=== PATIENT | male | born 1955 | race Caucasian/White ===

== ENCOUNTER 2016-03-18 16:18 | Observation (INO) ==
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
[2016-03-18 17:15] LABS: Basophils # 0.1 K/mcL (0.0-0.2); Basophils % 0.5 %; Eosinophils # 0.1 K/mcL (0.0-0.6); Eosinophils % 0.8 %; Hematocrit 43.8 % (37.5-50.1); Hemoglobin 14.8 g/dL (12.9-16.9); Immature Granulocytes % 0.2 % (0-4); Lymphocytes # 2.3 K/mcL (0.6-4.6); Lymphocytes % 24.1 %; Mean Corpuscular HGB Conc 33.8 g/dL (31.6-35.5); Mean Corpuscular Hemoglobin 31.8 pg (28.0-33.3); Mean Corpuscular Volume 94.2 fL (83.0-100.0); Monocytes # 0.3 K/mcL (0.0-1.3); Neutrophils # 6.9 K/mcL (1.6-8.9); Platelet Count 324 K/mcL (140-400); Red Blood Count 4.65 M/mcL (4.19-5.50); Red Cell Distribution Width 13.5 % (11.5-14.5); Segmented Neutrophils % 71.4 %
[2016-03-18 17:28] LABS: BUN/Creatinine Ratio 11 (6-26); Blood Urea Nitrogen 9 mg/dL (8-26); Calcium 9.9 mg/dL (8.6-10.8); Carbon Dioxide 23 mEq/L (19-29); Chloride 103 mEq/L (98-109); Glucose 239 mg/dL (70-99); Magnesium 1.8 mg/dL (1.6-2.6); Osmolality,Calculated 292 (280-300); Potassium 4.3 mEq/L (3.5-4.5); Sodium 138 mEq/L (136-145); eGFR For African Americans > 60 (> 60); eGFR For Non-African Americans > 60 (> 60)
[2016-03-18] MEDS ORDERED: Ketorolac 30 MG/ML VIAL IVP ONE (17:34)
[2016-03-18 18:35] LABS: Phenytoin (Dilantin) < 0.5 mcg/mL (10-20)
[2016-03-18] MEDS ORDERED: Ondansetron 4 MG/2 ML VIAL IVP ONE ×2 (18:40→21:19)
[2016-03-18] MEDS ORDERED: *HR* HYDROmorphone (PF) 1 MG/ML SYRINGE IV ONE ×2 (18:40→20:03)
[2016-03-18] MEDS ORDERED: *HR* HYDROmorphone (PF) 1 MG/ML SYRINGE IVP ONE (21:19)
[2016-03-18] MEDS ORDERED: Ibuprofen 400 MG TABLET PO PRN (22:47)
[2016-03-18] MEDS ORDERED: *HR* HYDROcodone/Acet 5/325 mg TABLET PO PRN (22:47)
[2016-03-18] MEDS ORDERED: Naloxone 0.4 MG/ML INJ IVP PRN (22:47)
[2016-03-18] MEDS ORDERED: Nitroglycerin 0.4 MG TAB.SUBL SL PRN (22:54)
[2016-03-18] MEDS ORDERED: *HR* Dextrose 50 % in Water (Syg) 50 ML SYRINGE IVP PRN (23:00)
[2016-03-18] MEDS ORDERED: Insulin DETEMIR 100 UNIT/ML X5UNITS SQ SCH ×2 (23:00→23:12)
[2016-03-18] MEDS ORDERED: predniSONE 10 MG TABLET PO SCH (23:00)
[2016-03-18] MEDS ORDERED: D5% in Water 1,000 ML IV PRN (23:00)
[2016-03-18] MEDS ORDERED: Dextrose Gel 15 GM PO PRN ×2 (23:00)
[2016-03-18] MEDS: *HR* HYDROmorphone (PF) 1 MG/ML SYRINGE IVP PRN (23:12)
--- NOTE | 2016-03-18 23:20 | Internal Med History&Physical ---
Date of Encounter: 03/18/16 Time of Encounter: 23:13 Assessment and Plan (1) New onset seizure Current visit: Yes Status: Acute Patient with 3 observed seizures today. Reports he had some dizziness prior to the first seizure, but does not remember anything else until waking up in ED. Denies headache. Started on Keppra 500mg IVPB by ED. CT of head negative for acute abnormality. 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 Keppra 500mg PO BID Seizure precautions Neuro checks Q2 hr EEG ordered Neurology consult ordered. (2) Chronic back pain Current visit: Yes Status: Acute Patient with history of low back pain with sciatica with multiple visits to ED/ UC for back pain over the last few months. He is complaining of back pain during my evaluation, he reports he thinks it was exacerbated when EMS moved him out of his car. He was given several doses of dilaudid in ED. Continue home dose of oxycodone 15mg Q4hr PRN. 0.5mg IV dilaudid for breakthrough Narcan PRN for respiratory depression Qualifiers: Back pain location: low back pain Back pain laterality: unspecified Sciatica presence: with sciatica Sciatica laterality: sciatica laterality unspecified Qualified Code(s): M54.40 - Lumbago with sciatica, unspecified side; G89.29 - Other chronic pain (3) HTN (hypertension) Current visit: No Status: Acute Continue home doses of metoprolol, lisinopril and HCTZ. Qualifiers: Hypertension type: essential hypertension Qualified Code(s): I10 - Essential (primary) hypertension (4) Tobacco abuse Current visit: No Status: Acute Patient reports he has been cutting back, now down to 1/2 PPD. Offered encouragement, discussed smoking cessation options. Nicotine patch TD daily. (5) DM type 2 (diabetes mellitus, type 2) Current visit: No Status: Chronic Check blood sugars ACHS Continue home basal dose of insulin of 45u daily Sliding scale correction dose ACHS hypoglycemic protocol. Qualifiers: Diabetes mellitus complication status: without complication Diabetes mellitus medical terminologist insulin use: with medical terminologist use Qualified Code(s): E11.9 - Type 2 diabetes mellitus without complications; Z79.4 - care home (current) use of insulin (6) DVT prophylaxis Current visit: No Status: Acute ambulate as tolerated anti-embolic stockings Heparin 5,000u SQ BID Internal Medicine - H&P: HPI Chief complaint: seizure Admitted From: Emergency Dept Plans for Post Hospital Care: Home History of present illness: Mr. Craig is a 60 year old male with history of HTN, hyperlipidemia, TIA, type 2 diabetes, COPD, and CAD who was brought to the ED by EMS for witnessed seizure. The patient reportedly pulled into the driveway and was observed to slump over in his car with seizure activity and EMS was called. He had 2 more seizures while under the care of EMS. He reports he felt a little dizziness while driving, and does not remember anything until waking up in the ED. He denies any headache, chest pain, palpitations, recent fever, chills, sweats or body aches. He is complaining of back pain and leg pain. In the ED, a CT of the head was negative for acute abnormality. Patient has a known history of small cerebral aneurysm and CTA of head and neck obtained. No change to known aneurysm and no leak of aneurysm. He was given 500mg of Keppra IVPB by ED. On exam, patient is alert and oriented, in no distress. His heart has regular rate and rhythm with systolic murmur. Lungs are clear bilaterally. He is complaining of back and leg pain. Past Med Surg Social Fam HX - Past Medical History Medical history: COPD, coronary artery disease, diabetes, hyperlipidemia, hypertension, myocardial infarction, TIA, valvular heart disease Psychiatric history: no psych history - Past Surgical History Surgical History: angioplasty/stent (2006 and 2015), cholecystectomy, herniorrhaphy, knee replacement - Social History Smoking Status: Current every day smoker (40 pack year history) Packs per day: 1/2 Smokeless Tobacco Status: No Alcohol use: none Drug use: none - Family History Mother Living Status: Hx Family Cancer: Yes (lung cancer) Father Hx Family Cancer: Yes (colon cancer) Internal Medicine - H&P: Meds Alprazolam [Xanax 0.5 MG Tablet] 0.5 mg PO BID 10/12/15 [History] Citalopram [CeleXA] 20 mg PO DAILY 10/12/15 [History] Gabapentin 600 mg PO TID 10/12/15 [History] Insulin Glargine [Lantus] 45 unit SQ DAILY 10/12/15 [History] Metformin HCl [Metformin HCl ER] 1,000 mg PO BID 10/12/15 [History] Oxycodone HCl 15 mg PO Q4H PRN 11/15/15 [History] Zolpidem [Ambien] 10 mg PO HS 11/15/15 [History] Diazepam [Valium] 5 mg PO TID #10 tablet 03/17/16 [Rx] Ondansetron ODT [Zofran ODT] 4 mg SL Q6HR #15 tab.rapdis 03/17/16 [Rx] Albuterol Sulfate [Albuterol Inhaler] 2 puff IH Q4H PRN 03/18/16 [History] Allopurinol [Zyloprim 300 MG] 300 mg PO DAILY 03/18/16 [History] Aspirin 81 mg PO DAILY 03/18/16 [History] Atorvastatin Calcium [Lipitor] 80 mg PO DAILY 03/18/16 [History] Budesonide/Formoterol 160/4.5 [Symbicort 160/4.5] 2 puff IH BIDR 03/18/16 [ History] Clopidogrel [Plavix] 75 mg PO DAILY 03/18/16 [History] Lisinopril/Hydrochlorothiazide [Zestoretic 10-12.5 mg Tablet] 1 each PO BID [History] Metoprolol Succinate 100 mg PO DAILY 03/18/16 [History] Nitroglycerin [Nitrostat] 0.4 mg SL Q5M PRN 03/18/16 [History] PredniSONE 10 mg PO TAPER 03/18/16 [History] Allergies No Known Allergies Allergy (Verified 12/18/15 18:05) All Systems PM: A 10-system review of systems was performed and is negative for pertinent findings except as documented above in the HPI. - Constitutional Constitutional: no chills, no fever(s), no night sweats - EENT Eyes: no change in vision, no discharge, no pain, no photophobia Ears: no ear discharge, no ear pain, no tinnitus Nose, mouth and throat: no dysphagia, no nasal discharge, no neck pain, no sore throat - Cardiovascular Cardiovascular ROS IM: no chest pain, no diaphoresis, no dyspnea, no lightheadedness, no palpitations, no syncope - Respiratory Respiratory: no cough, no dyspnea, no wheezing, no excessive phlegm production - Gastrointestinal Gastrointestinal: no abdominal pain, no diarrhea, no hematemesis, no hematochezia, no melena, no nausea, no vomiting - Musculoskeletal Musculoskeletal ROS IM: back pain, no numbness, no tingling - Integumentary Integumentary IM: no rash, no unusual bruising - Neurological Neurological ROS: tingling (fingertips), no confusion, no convulsions, no focal weakness, no numbness, no tremor(s) - Hematologic/Lymphatic Hematologic/Lymphatic: no easy bruising - Constitutional Vitals: Temp Pulse Resp BP Pulse Ox 98.0 F 78 16 156/91 97 03/18/16 22:50 03/18/16 22:50 03/18/16 22:50 03/18/16 22:50 03/18/16 22:50 General appearance: Present: A&O X 3, no acute distress - Head Head exam: Present: atraumatic, normocephalic - Eye Eye exam: Present: PERRL, conjuntiva pink, sclera anicteric Pupils: Present: PERRL - Neck Neck exam general surgery: Present: supple, trachea midline. Absent: lymphadenopathy - Respiratory Respiratory exam: Present: CTAB. Absent: accessory muscle use, rales, rhonchi, wheezes - Cardiovascular Cardiovascular exam: Present: RRR, +S1, +S2, systolic murmur. Absent: diastolic murmur, gallop, rubs - GI/Abdominal GI/Abdominal exam: Present: normal bowel sounds, soft, no peritoneal signs. Absent: distended, tenderness - Extremities Exam Extremities exam: Present: warm, radial pulses palpable and symetrical. Absent : calf tenderness, cyanotic, pedal edema - Back Exam Back exam: Present: normal inspection, tenderness - Neurological Exam Neurological exam: Present: CN II-XII intact, oriented X3, no focal deficits. Absent: pronater drift, facial droop, speech deficit - Skin Skin exam: Present: dry, intact Internal Med - H&P Results - Labs CBC & Chem 7: 03/18/16 17:06 03/18/16 17:06
[2016-03-18 23:50] LABS: Amphetamine Screen,Urine Negative ng/mL (Cutoff=1000); Barbiturate Screen,Urine Negative ng/mL (Cutoff=200); Benzodiazepines Screen,Urine Positive ng/mL (Cutoff=200); Cannabinoid Screen,Urine Negative ng/mL (Cutoff = 50); Cocaine Screen,Urine Negative ng/mL (Cutoff= 300); Opiate Screen,Urine Positive ng/mL (Cutoff=300); Phencyclidine Screen,Urine Negative ng/mL (Cutoff=25)
[2016-03-19 01:14] LABS: Bilirubin,Urine Negative (Negative); Blood,Urine Moderate (Negative); Clarity,Urine Clear (Clear); Color,Urine Yellow (Yellow); Glucose,Urine (UA) 250 mg/dL (Normal); Ketones,Urine Negative (Negative); Leukocyte Esterase,Urine Negative (Negative); Nitrite,Urine Negative (Negative); PH,Urine 5.5 pH Units (5.0-8.0); Protein,Urine 100 mg/dL (Neg-Trace); Urobilinogen,Urine Normal (Normal)
[2016-03-19 01:19] LABS: Bacteria,Urine None Seen per hpf (None-Few); Hyaline Casts,Urine None Seen per lpf (None-Few); Squamous Epithelial Cell,Urine Moderate per lpf (None-Few); WBC,Urine 0-3 per hpf (0-3)
[2016-03-19] MEDS: *HR* OxyCODONE Immed Rel 15 MG TABLET PO PRN ×2 (01:23→07:58)
[2016-03-19] MEDS: *HR* HYDROmorphone (PF) 1 MG/ML SYRINGE IVP PRN (03:50)
[2016-03-19 05:17] LABS: Basophils # 0.1 K/mcL (0.0-0.2); Basophils % 0.3 %; Eosinophils # 0.1 K/mcL (0.0-0.6); Eosinophils % 0.5 %; Hematocrit 38.3 % (37.5-50.1); Immature Granulocytes % 0.6 % (0-4); Lymphocytes # 2.7 K/mcL (0.6-4.6); Lymphocytes % 13.8 %; Mean Corpuscular HGB Conc 34.2 g/dL (31.6-35.5); Mean Corpuscular Volume 93.6 fL (83.0-100.0); Mean Platelet Volume 8.9 fL (9.4-12.4); Monocytes # 0.7 K/mcL (0.0-1.3); Monocytes % 3.4 %; Platelet Count 311 K/mcL (140-400); Red Blood Count 4.09 M/mcL (4.19-5.50); Red Cell Distribution Width 13.4 % (11.5-14.5); Segmented Neutrophils % 81.4 %
[2016-03-19 05:18] LABS: Hemoglobin 13.1 g/dL (12.9-16.9)
[2016-03-19 05:31] LABS: BUN/Creatinine Ratio 18 (6-26); Blood Urea Nitrogen 15 mg/dL (8-26); Calcium 9.2 mg/dL (8.6-10.8); Carbon Dioxide 21 mEq/L (19-29); Chloride 107 mEq/L (98-109); Glucose 168 mg/dL (70-99); Magnesium 1.7 mg/dL (1.6-2.6); Osmolality,Calculated 293 (280-300); Phosphorous 4.4 mg/dL (2.3-4.7); Potassium 4.3 mEq/L (3.5-4.5); Sodium 139 mEq/L (136-145); eGFR For African Americans > 60 (> 60); eGFR For Non-African Americans > 60 (> 60)
[2016-03-19] MEDS ORDERED: levETIRAcetam 250 MG TABLET PO SCH (06:00)
[2016-03-19 06:57] VITALS: BP 113/71
[2016-03-19] MEDS ORDERED: *HR* Heparin 5,000 UNIT/ML VIAL SQ SCH (07:00)
[2016-03-19] MEDS ORDERED: Insulin LISPRO 300 UNITS/3 ML VIAL SQ SCH ×3 (07:30→21:00)
--- NOTE | 2016-03-19 07:51 | Neurology - Consult Note ---
Date of Encounter: 03/19/16 Time of Encounter: 07:48 Assessment and Plan (1) Spell of altered consciousness Current Visit: Yes Status: Acute I am not absolutely convinced and this was a generalized tonic-clonic seizure. There is no evidence of oral trauma is no loss of bladder or bowel continence. Also in a patient this age with new onset seizure there is generally an obvious cause. CT scan of his head is negative and his neurologic examination is normal. He did mention to me that he has been under tremendous amount of stress lately rarely due to the fact that he just found out that his 14-year- old granddaughter is , and he has another granddaughter who is been skipping school. In regard we will proceed with MRI scan of the brain with contrast, and in EEG. If the studies are negative then I would recommend discontinuing the Keppra. He is also on telemetry although denies any heart palpitations or chest pain associated with the event. Further recommendations will be made after the MRI and EEG have been completed. History of Present Illness HPI: Mr. Craig is a 60 year old male who is being seen for neurologic consultation secondary to possible new onset seizure. He states that yesterday afternoon while driving his car home from work she began to feel "dizzy". About 10 minutes later he arrived in his driveway. He pulled up his driveway and apparently this is the last thing he remembers. He does recall putting the car in park. Apparently then is 18-year-old grandson witnessed him have what appeared to be a seizure. Only doses that he "slumped over" and started shaking. He is not certain how long the initial episode lasted. Apparently several minutes or so later he had another episode. The next thing he recalls is being in the ED. He did not bite his tongue he did not have urinary incontinence. He did experience a headache after the event. He does not recall anything about the seizure. 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 However both of these are small and there is no evidence that either of them hemorrhaged. He does not have a previous history of seizure. Initial CT scan of the brain was negative. EEG is pending. He is currently awake alert oriented to person place and time and able to give a lucid history. He was started on IV Keppra by the ED. Past Med Surg Social Fam HX - Past Medical History Medical history: COPD, coronary artery disease, diabetes, hyperlipidemia, hypertension, myocardial infarction, TIA, valvular heart disease Psychiatric history: no psych history - Past Surgical History Surgical History: angioplasty/stent (2006 and 2015), cholecystectomy, herniorrhaphy, knee replacement - Social History Smoking Status: Current every day smoker (40 pack year history) Packs per day: 1/2 Smokeless Tobacco Status: No Alcohol use: none Drug use: none - Family History Mother Living Status: Hx Family Cancer: Yes (lung cancer) Father Hx Family Cancer: Yes (colon cancer) Medications and Allergies Alprazolam [Xanax 0.5 MG Tablet] 0.5 mg PO BID 10/12/15 [History] Citalopram [CeleXA] 20 mg PO DAILY 10/12/15 [History] Gabapentin 600 mg PO TID 10/12/15 [History] Insulin Glargine [Lantus] 45 unit SQ DAILY 10/12/15 [History] Metformin HCl [Metformin HCl ER] 1,000 mg PO BID 10/12/15 [History] Oxycodone HCl 15 mg PO Q4H PRN 11/15/15 [History] Zolpidem [Ambien] 10 mg PO HS 11/15/15 [History] Diazepam [Valium] 5 mg PO TID #10 tablet 03/17/16 [Rx] Ondansetron ODT [Zofran ODT] 4 mg SL Q6HR #15 tab.rapdis 03/17/16 [Rx] Albuterol Sulfate [Albuterol Inhaler] 2 puff IH Q4H PRN 03/18/16 [History] Allopurinol [Zyloprim 300 MG] 300 mg PO DAILY 03/18/16 [History] Aspirin 81 mg PO DAILY 03/18/16 [History] Atorvastatin Calcium [Lipitor] 80 mg PO DAILY 03/18/16 [History] Budesonide/Formoterol 160/4.5 [Symbicort 160/4.5] 2 puff IH BIDR 03/18/16 [ History] Clopidogrel [Plavix] 75 mg PO DAILY 03/18/16 [History] Lisinopril/Hydrochlorothiazide [Zestoretic 10-12.5 mg Tablet] 1 each PO BID [History] Metoprolol Succinate 100 mg PO DAILY 03/18/16 [History] Nitroglycerin [Nitrostat] 0.4 mg SL Q5M PRN 03/18/16 [History] PredniSONE 10 mg PO TAPER 03/18/16 [History] Allergies No Known Allergies Allergy (Verified 12/18/15 18:05) All Systems: A 10-system review of systems was performed and is negative for pertinent findings except as documented above in the HPI. Review of Systems: 10 point review of systems is consistent with a present illness and otherwise negative. Physical Examination - Vital Signs Vital Signs: Initial Vital Signs Temp Pulse Resp BP Pulse Ox 98.2 F 87 14 168/101 100 03/18/16 16:20 03/18/16 16:20 03/18/16 16:20 03/18/16 16:20 03/18/16 16:20 - Neurologic Detailed motor examination: full strength in all major muscle groups Motor examination - right side: 5/5: deltoids, biceps, triceps, wrist flexion, wrist extension, academic support center director, hip flexors, tibialis Anterior, quadriceps, toe extension (EHL), plantarflexion Motor examination - left side: 5/5: deltoids, biceps, triceps, wrist flexion, wrist extension, hip flexors, academic support center director, quadriceps, tibialis Anterior, toe extension (EHL), plantarflexion Mental Status Examination: awake, alert, oriented to person, oriented to place, oriented to time, follows commands appropriately, answers questions appropriately, no agnosia, no aphasia, no aproxia Cranial nerve examination: PERRL, EOMI, visual casiano intact, corneal reflexes brisk symmetrically, sensory to face intact, mastication intact, no facial asymmetry is present, no dysarthria, hearing is intact symmetrically, soft palate elevates bilaterally upon phonation, gag reflex intact, flexes SCM and trapezius muscles symmetrically with full power, tongue protrudes midline, no atrophy or facial fasiculations present Cerebellar examination: no dysmetria, performs finger to nose and heel to quiroga symmetrically without ataxia, no gait ataxia, no truncal ataxia, no difficulty with rapid alternating movements Results - Laboratory Findings CBC and BMP: 03/19/16 05:09 03/19/16 05:09 Abnormal lab findings: Abnormal lab results WBC 19.6 K/mcL (4.3-11.1) H D 03/19/16 05:09 RBC 4.09 M/mcL (4.19-5.50) L 03/19/16 05:09 MPV 8.9 fL (9.4-12.4) L 03/19/16 05:09 Neutrophils # 16.0 K/mcL (1.6-8.9) H 03/19/16 05:09 Glucose 168 mg/dL (70-99) H 03/19/16 05:09 POC Glucose 193 (58-89) H 03/19/16 06:55 Urine Protein 100 mg/dL (Neg-Trace) H 03/18/16 23:20 Urine Glucose (UA) 250 mg/dL (Normal) H 03/18/16 23:20 Urine Blood Moderate (Negative) H 03/18/16 23:20 Urine Microscopic RBC 5-15 per hpf (0-3) H 03/18/16 23:20 Ur Squamous Epith Cells Moderate per lpf (None-Few) H 03/18/16 23:20 Urine Opiates Screen Positive ng/mL (Sscwzc=128) H 03/18/16 23:20 Phenytoin < 0.5 mcg/mL (10-20) L 03/18/16 17:06 Carbamazepine 0.0 mcg/mL (4.0-12.0) L 03/18/16 17:06 Phenobarbital < 1 mcg/mL (15-40) L 03/18/16 17:06 U Benzodiazepines Scrn Positive ng/mL (Jwobge=464) H 03/18/16 23:20 Consult Discharge Plan - Plan Referrals: NO,PCP [Primary Care Provider] -
[2016-03-19] MEDS ORDERED: Aspirin 81 MG TAB.CHEW PO SCH (09:00)
[2016-03-19] MEDS ORDERED: Nicotine 14 MG PATCH.TD24 TD SCH (09:00)
[2016-03-19] MEDS ORDERED: Metoprolol XL (24 HR) Succ 50 MG TAB.ER.24H PO SCH (09:00)
[2016-03-19] MEDS ORDERED: Gabapentin 300 MG CAPSULE PO SCH (09:00)
[2016-03-19] MEDS ORDERED: ALPRAZolam 0.5 MG TABLET PO SCH (09:00)
[2016-03-19] MEDS ORDERED: Budesonide/Formoterol 160/4.5 MDI IH SCH (10:00)
--- NOTE | 2016-03-19 10:28 | Electrocardiograph Report ---
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
== END 2016-03-19 09:37 | disposition left against medical advice (07) ==
LOC: EMEROO 16:18 → 3BNU 16:18 → SUATTDRO 21:24 → 3BNU 22:05
PROVIDERS: ADMIT Nurse Practitioner Family; ATTEND Family Medicine

== ENCOUNTER 2016-04-08 19:02 | Inpatient (IN) ==
[2016-04-08] MEDS ORDERED: Piperacillin/Tazobactam 3.375 GM in D5% in Water (Mini-Bag+) 100 ML IVPB ONE (21:16)
[2016-04-08] MEDS ORDERED: Vancomycin 1,000 MG in D5% in Water 250 ML IVPB ONE (21:16)
[2016-04-08] MEDS ORDERED: *HR* HYDROmorphone (PF) 1 MG/ML SYRINGE IV ONE ×2 (21:16→22:40)
--- NOTE | 2016-04-08 21:20 | Emergency Department Note ---
Disposition Clinical Impression: Cellulitis of hand, Hyperglycemia Leukocytosis Qualifiers: Leukocytosis type: unspecified Qualified Code(s): D72.829 - Elevated white blood cell count, unspecified Disposition: Admitted As Inpatient Condition: Good Referrals: Cyrus Coyne DO [Primary Care Provider] - Forms: ED Satisfaction Letter Time of Disposition: 21:39 Extremity Problem HPI - General Chief complaint: ED Skin/Abscess/Foreign Body Stated complaint: swelling to right hand Time Seen by Provider: 04/08/16 21:12 Source: patient Mode of arrival: ambulatory Limitations: no limitations Nursing Notes Reviewed: Yes Vital Signs Reviewed: Yes (Tachycardic, hypertensive) - History of Present Illness HPI Narrative: Patient sustained a laceration to the dorsum of his right second MCP joint 13 days ago that was sutured at the urgent care. Since that time he has experienced progressive pain and swelling. He notes subjective fevers and chills last night. He is right-hand dominant. Blood sugars controlled. He also notes he has been taking pieces of glass out of the wound since the repair Pt Subjective Complaint: extremity pain, extremity swelling Onset (ago): day(s) Consistency: constant Injury Location: right Pain Scale: 8 Quality: aching Improves with: nothing Worsens with: range of motion, palpation Associated symptoms: Reports: fever, swelling, redness Context: recent surgery/procedure - Related Data Home Medications Medication Instructions Recorded Confirmed Alprazolam [Xanax 0.5 MG Tablet] 0.5 mg PO BID 10/12/15 04/08/16 Citalopram [CeleXA] 20 mg PO DAILY 10/12/15 04/08/16 Gabapentin 600 mg PO TID 10/12/15 04/08/16 Insulin Glargine [Lantus] 45 unit SQ DAILY 10/12/15 04/08/16 Metformin HCl [Metformin HCl ER] 1,000 mg PO BID 10/12/15 04/08/16 Oxycodone HCl 15 mg PO Q4H PRN 11/15/15 04/08/16 Zolpidem [Ambien] 10 mg PO HS 11/15/15 04/08/16 Albuterol Sulfate [Albuterol 2 puff IH Q4H PRN 03/18/16 04/08/16 Inhaler] Allopurinol [Zyloprim 300 MG] 300 mg PO DAILY 03/18/16 04/08/16 Aspirin 81 mg PO DAILY 03/18/16 04/08/16 Atorvastatin Calcium [Lipitor] 80 mg PO DAILY 03/18/16 04/08/16 Budesonide/Formoterol 160/4.5 2 puff IH BIDR 03/18/16 04/08/16 [Symbicort 160/4.5] Clopidogrel [Plavix] 75 mg PO DAILY 03/18/16 04/08/16 Lisinopril/Hydrochlorothiazide 1 each PO BID 03/18/16 04/08/16 [Zestoretic 10-12.5 mg Tablet] Metoprolol Succinate 100 mg PO DAILY 03/18/16 04/08/16 Nitroglycerin [Nitrostat] 0.4 mg SL Q5M PRN 03/18/16 04/08/16 Allergies Allergy/AdvReac Type Severity Reaction Status Date / Time No Known Allergies Allergy Verified 04/08/16 20:28 All systems ED: reviewed and negative except as stated. Constitutional: Reports: fever, chills Eyes: Reports: as per HPI ENT ED: Reports: as per HPI Cardiovascular: Reports: as per HPI Respiratory: Reports: as per HPI Gastrointestinal: Reports: as per HPI Musculoskeletal: Reports: other (Pain, swelling, erythema to right hand) Integumentary: Reports: other (Erythema to right hand laceration repair site) Neurological: Reports: as per HPI Psychiatric: Reports: as per HPI Endocrine: Reports: as per HPI Hematological/Lymphatic: Reports: as per HPI Allergic/Immunologic: Reports: as per HPI Past Medical History - Past Medical History Source: patient Medical history: Reports: hypertension Surgical history: Reports: angioplasty/stent (2006 and 2015), cholecystectomy, herniorrhaphy, knee replacement Psychiatric history: Reports: no psych history - Social History Smoking Status: Never smoker Smokeless Tobacco Status: No Alcohol use: Reports: none Drug use: Reports: none Physical Exam - General Limitations: no limitations General appearance: alert, in no apparent distress - Head Head exam: atraumatic - Eye Eye exam: Present: normal appearance - ENT ENT exam: normal exam - Neck Neck exam: Present: normal inspection - Chest Chest inspection: Present: normal inspection, symmetric chest wall rise - Respiratory Respiratory exam: Present: normal lung sounds bilaterally - Cardiovascular Cardiovascular exam: Present: tachycardia, normal heart sounds - Rectal Exam Rectal exam: Present: deferred - Expanded Upper Extremity Exam Shoulder exam: Present: normal inspection Arm exam: Present: normal inspection Elbow exam: Present: normal inspection Forearm/Wrist exam: Present: normal inspection Hand exam: Present: tenderness, swelling, erythema, other (Healing laceration to the dorsal aspect of the right second MCP with [address] Hand symmetrically swollen with increased erythema, palpable tenderness and increased tactile warmth. Right second digit symmetrically swollen and tender. Pain with palpation over the second digit. Patient able to extend the second digit but with limited range of motion due to pain) Neuromotor exam: Normal: wrist extension - Neurological Exam Neurological exam: Present: alert, oriented X3, CN II-XII intact - Psychiatric Psychiatric exam: Present: anxious - Skin Skin exam: Present: warm, dry Course Course Narrative: Patient presents with pain and swelling to his right hand 13 days after laceration repair. X-ray reveals soft tissue gas vs retained foreign bodies. I am concerned about cellulitis and possibly even tenosynovium otitis. He will require broad-spectrum antibiotics and admission. I will contact the orthopedic surgeon for consultation. - Reevaluation(s) Reevaluation #1: 5 sutures removed by me. Dieudonne purulent material was expressed and sent for wound culture - Consultations Consultation #1: case d/w Dr. Irwin, ortho hand wireless construction manager at 21:28. He recs removing the sutures. He agrees to evaluate in consultation Vital Signs Temperature 98.5 F 04/08/16 20:20 Pulse Rate 113 04/08/16 20:20 Respiratory Rate 20 04/08/16 20:20 Blood Pressure 171/83 04/08/16 20:20 O2 Sat by Pulse Oximetry 96 04/08/16 20:20 Temperature 98.5 F 04/08/16 20:20 Pulse Rate 113 04/08/16 20:20 Respiratory Rate 20 04/08/16 20:20 Blood Pressure 171/83 04/08/16 20:20 O2 Sat by Pulse Oximetry 96 04/08/16 20:20 Oxygen Delivery Oxygen Delivery Room Air Extremity Problem, Nontraumati - Lab Data Lab results reviewed: Yes I reviewed the patient's lab results. Result diagrams: 04/08/16 21:29 04/08/16 21:29 Lab Results 02/14/17 02/14/17 02/14/17 Range/Units 21:29 21:29 21:29 WBC 17.0 H (4.3-11.1) K/mcL RBC 4.17 L (4.19-5.50) M/mcL Hgb 13.4 (12.9-16.9) g/dL Hct 39.7 (37.5-50.1) % MCV 95.2 (83.0-100.0) fL MCH 32.1 (28.0-33.3) pg MCHC 33.8 (31.6-35.5) g/dL RDW 13.9 (11.5-14.5) % Plt Count 264 (140-400) K/mcL MPV 8.9 L (9.4-12.4) fL Immature Gran % 0.6 (0-4) % Seg Neutrophils % 82.9 % Lymphocytes % 11.2 % Monocytes % 4.6 % Eosinophils % 0.4 % Basophils % 0.3 % Neutrophils # 14.1 H (1.6-8.9) K/mcL Lymphocytes # 1.9 (0.6-4.6) K/mcL Monocytes # 0.8 (0.0-1.3) K/mcL Eosinophils # 0.1 (0.0-0.6) K/mcL Basophils # 0.1 (0.0-0.2) K/mcL Immature Plt Fraction 2.2 (1.1-6.1) % ESR 60 H (0-10) mm/hr Sodium 130 L (136-145) mEq/L Potassium 4.6 H (3.5-4.5) mEq/L Chloride 97 L (98-109) mEq/L Carbon Dioxide 21 (19-29) mEq/L BUN 10 (8-26) mg/dL Creatinine 0.93 (0.72-1.25) mg/dL Est GFR ( Amer) > 60 (> 60) Est GFR (Non-Af Amer) > 60 (> 60) BUN/Creatinine Ratio 11 (6-26) Glucose 366 H (70-99) mg/dL Calculated Osmolality 284 (280-300) Lactic Acid (0.5-2.2) mmol/L Uric Acid 5.1 (3.5-7.2) mg/dL Calcium 9.5 (8.6-10.8) mg/dL C-Reactive Protein (Less than 5) mg/L 04/08/16 04/08/16 Range/Units 21:29 21:29 WBC (4.3-11.1) K/mcL RBC (4.19-5.50) M/mcL Hgb (12.9-16.9) g/dL Hct (37.5-50.1) % MCV (83.0-100.0) fL MCH (28.0-33.3) pg MCHC (31.6-35.5) g/dL RDW (11.5-14.5) % Plt Count (140-400) K/mcL MPV (9.4-12.4) fL Immature Gran % (0-4) % Seg Neutrophils % % Lymphocytes % % Monocytes % % Eosinophils % % Basophils % % Neutrophils # (1.6-8.9) K/mcL Lymphocytes # (0.6-4.6) K/mcL Monocytes # (0.0-1.3) K/mcL Eosinophils # (0.0-0.6) K/mcL Basophils # (0.0-0.2) K/mcL Immature Plt Fraction (1.1-6.1) % ESR (0-10) mm/hr Sodium (136-145) mEq/L Potassium (3.5-4.5) mEq/L Chloride (98-109) mEq/L Carbon Dioxide (19-29) mEq/L BUN (8-26) mg/dL Creatinine (0.72-1.25) mg/dL Est GFR ( Amer) (> 60) Est GFR (Non-Af Amer) (> 60) BUN/Creatinine Ratio (6-26) Glucose (70-99) mg/dL Calculated Osmolality (280-300) Lactic Acid 1.5 (0.5-2.2) mmol/L Uric Acid (3.5-7.2) mg/dL Calcium (8.6-10.8) mg/dL C-Reactive Protein 124 H (Less than 5) mg/L - Radiology Data Radiology results reviewed: Yes I reviewed the patient's radiology results.
[2016-04-08 21:39] LABS: Basophils # 0.1 K/mcL (0.0-0.2); Basophils % 0.3 %; Eosinophils # 0.1 K/mcL (0.0-0.6); Eosinophils % 0.4 %; Hematocrit 39.7 % (37.5-50.1); Hemoglobin 13.4 g/dL (12.9-16.9); Immature Granulocytes % 0.6 % (0-4); Immature Platelets 2.2 % (1.1-6.1); Lymphocytes # 1.9 K/mcL (0.6-4.6); Lymphocytes % 11.2 %; Mean Corpuscular HGB Conc 33.8 g/dL (31.6-35.5); Mean Corpuscular Hemoglobin 32.1 pg (28.0-33.3); Mean Corpuscular Volume 95.2 fL (83.0-100.0); Mean Platelet Volume 8.9 fL (9.4-12.4); Monocytes # 0.8 K/mcL (0.0-1.3); Monocytes % 4.6 %; Neutrophils # 14.1 K/mcL (1.6-8.9); Platelet Count 264 K/mcL (140-400); Red Blood Count 4.17 M/mcL (4.19-5.50); Red Cell Distribution Width 13.9 % (11.5-14.5); Segmented Neutrophils % 82.9 %
[2016-04-08 21:54] LABS: BUN/Creatinine Ratio 11 (6-26); Blood Urea Nitrogen 10 mg/dL (8-26); Calcium 9.5 mg/dL (8.6-10.8); Carbon Dioxide 21 mEq/L (19-29); Chloride 97 mEq/L (98-109); Glucose 366 mg/dL (70-99); Osmolality,Calculated 284 (280-300); Potassium 4.6 mEq/L (3.5-4.5); Sodium 130 mEq/L (136-145); Uric Acid 5.1 mg/dL (3.5-7.2); eGFR For African Americans > 60 (> 60); eGFR For Non-African Americans > 60 (> 60)
[2016-04-08] MEDS ORDERED: Ketorolac 30 MG/ML VIAL IV ONE (22:40)
[2016-04-08] MEDS ORDERED: Naloxone 0.4 MG/ML INJ IVP PRN (23:47)
[2016-04-09] MEDS ORDERED: Ondansetron ODT 4 MG TAB.RAPDIS SL PRN (01:37)
--- NOTE | 2016-04-09 01:58 | Internal Med History&Physical ---
<Alicia Ramos - Last Filed: 04/09/16 04:01> Date of Encounter: 04/09/16 Time of Encounter: 01:45 Assessment and Plan (1) SIRS due to infectious process without acute organ dysfunction Current visit: Yes Status: Acute Patient meets 2 separate SIRS criteria with HR initially greater than 90 and WBC greater than 12. He has confirmed infectious process in right hand. Initial lactic acid was 1.5. No signs of end organ dysfunction at this time. 1. Monitor vital signs 2. Monitor WBC - CBC tomorrow morning 3. Blood culture x 2 4. Antibiotics 5. Fluid bolus (2) Cellulitis of right hand Current visit: Yes Status: Acute Patient with acute cellulitis of right hand over 2nd MCP joint. In the ED, sutures were removed and a wound culture sent. X-ray showed soft tissue swelling with possible retained glass or soft tissue gas. The ED spoke with Dr. Irwin (ortho) and he agreed to consult. Due to extent of infection, reports of bone on initial cut, and the location over the joint, will get a CT scan to evaluate for possible bone or joint involvement. 1. CT scan of right upper extremity with contrast 2. Trend WBC, ESR and CRP 3. Follow up wound culture results 4. Zosyn and Vancomycin for antibiotic coverage. 5. Ortho consult for evaluation and further recommendations. NPO at midnight until evaluation. 6. Patient's home dose of oxycodone for pain medication with IV dilaudid for breakthrough (3) DM type 2 (diabetes mellitus, type 2) Current visit: No Status: Chronic Patient with history of T2DM. Glucose on admission was 366. Patient normally takes Lantus 45 units SQ daily along with Metformin 1000mg BID. 1. Patient is currently NPO. Will get Q6H glucose checks. 2. Medium sliding scale Q6 hours 3. 22 units Lantus daily 4. Hold metformin at this time Qualifiers: Diabetes mellitus complication status: without complication Diabetes mellitus nursing home insulin use: with nursing home use Qualified Code(s): E11.9 - Type 2 diabetes mellitus without complications; Z79.4 - long term care social worker (current) use of insulin (4) COPD (chronic obstructive pulmonary disease) Current visit: Yes Status: Acute Patient with history of COPD. Lungs were wheezy bilaterally on exam and patient reports a chronic cough. No current complaints of shortness of breath. Patient does not use supplemental oxygen at home. 1. Maintain O2 saturation greater than 90-92% 2. Continue home medications - symbicort and albuterol Qualifiers: COPD type: unspecified COPD Qualified Code(s): J44.9 - Chronic obstructive pulmonary disease, unspecified (5) HTN (hypertension) Current visit: No Status: Acute Patient with history of HTN. Initial blood pressure on arrival was 171/83. Improved without medication. 1. Continue to monitor blood pressures 2. Continue home medications - Lisinopril-HCTZ and Metoprolol Qualifiers: Hypertension type: essential hypertension Qualified Code(s): I10 - Essential (primary) hypertension (6) Gout Current visit: Yes Status: Acute Patient with history of gout. Denies any acute gouty attack at this time. 1. Continue home dose of allopurinol Qualifiers: Gout site: unspecified site Qualified Code(s): M10.9 - Gout, unspecified (7) Anxiety Current visit: Yes Status: Acute Patient with history of anxiety. 1. Continue home medications - xanax BID, celexa, and ambien at night. (8) Diabetic neuropathy Current visit: Yes Status: Acute Patient reports diabetic neuropathy in BL lower extremities. 1. Continue home dose of gabapentin. Qualifiers: Diabetes mellitus type: type 2 Diabetes mellitus complication detail: diabetic autonomic neuropathy Qualified Code(s): E11.43 - Type 2 diabetes mellitus with diabetic autonomic (poly)neuropathy (9) Chronic back pain Current visit: No Status: Acute Patient reports history of low back pain. He reports that he takes oxycodone HCl 15mg every 4 hours as needed for pain. He reports that he usually takes it every 4 hours. 1. Will continue current medication for pain. Qualifiers: Back pain location: low back pain Back pain laterality: unspecified Sciatica presence: with sciatica Sciatica laterality: sciatica laterality unspecified Qualified Code(s): M54.40 - Lumbago with sciatica, unspecified side; G89.29 - Other chronic pain (10) Tobacco abuse Current visit: No Status: Acute Patient does report smoking about 1/2 ppd. He denies any need for a nicotine patch at this time. Discussed with patient the health risks of smoking and recommended quitting. (11) DVT prophylaxis Current visit: No Status: Acute Patient to be evaluated by ortho tomorrow morning. Will hold home does of plavix and aspirin, as well as other pharmacologic DVT prophylaxis until receiving further recommendations from surgery. 1. SCDs Internal Medicine - H&P: HPI Chief complaint: right hand cellulitis Admitted From: Home Plans for Post Hospital Care: Home History of present illness: Mr. Craig is a 60 year old male with PMH significant for previous IL, uncontrolled T2DM, back pain with chronic opioid use, COPD, and HTN who presents with right hand cellulitis. Patient reports that approximately 2 weeks ago he was washing dishes when he broke a glass and cut his right hand on the broken glass. He got a laceration on the dorsum of his right hand along the 2nd MCP joint. Patient reports that initially the cut was very deep and he was able to see bone. He went to urgent care where he sates that the wound was cleaned and then closed with 5 uninterrupted sutures. Yesterday, patient reports that he noticed progressive swelling along his second MCP joint. He reports swelling of his 2nd and 3rd fingers that extended up his forearm. The area above the second MCP joint is the most swollen, erythematous and warm to the touch. He reports associated fever/chills, difficulty moving his right pointer finger, and increasing pain. Patient denies any MOORE, changes in vision, syncopal episodes, nausea/vomiting, abdominal pain, or changes in bowel or bladder. While he reports a history of T2DM and diabetic neuropathy in BL feet , he denies any history of poor wound healing or diabetic ulcers. On arrival to the ED, patient's HR was 101, BP 171/83, RR 16. Labs showed an elevated WBC of 17.0, ESR of 60, and CRP of 124. X-ray showed soft tissues swelling with positive retained glass foreign bodies or soft tissue gas. The ED spoke with Dr. Irwin (ortho) who agreed to consult on the case. The sutures were removed, pus expressed from the wound and a wound culture sent. Patient was given vancomycin and zosyn for antibiotic coverage. On exam, patient is awake and alert, conversing appropriately. He has a laceration along the dorsum of his right 2nd MCP joint. The area is warm, erythematous and tender to palpation. His right 2nd finger is swollen. The swelling extends about half way up his forearm. The patient has erythematous streaks extending approximately 2 inches up his forearm. While the arm is swollen and tender, there is no crepatice on exam. Sensation is intact in all extremities and all fingers have good capillary refill. He is able to move all fingers but reports pain with movement of the 2nd finger. Past Med Surg Social Fam HX - Past Medical History Medical history: COPD, diabetes, hypertension, myocardial infarction Psychiatric history: anxiety - Past Surgical History Surgical History: angioplasty/stent, cholecystectomy, herniorrhaphy, knee replacement - Social History Smoking Status: Current every day smoker Packs per day: 0.5 Smokeless Tobacco Status: No Alcohol use: none Drug use: none Current living situation: Home - Independent Activity Level: Independent ambulation - Family History Mother Living Status: Age at : 60 Hx Family Cancer: Yes (lung cancer) Father Living Status: Age at : 50 Hx Family Cancer: Yes (colon cancer) Internal Medicine - H&P: Meds Alprazolam [Xanax 0.5 MG Tablet] 0.5 mg PO BID 10/12/15 [History] Citalopram [CeleXA] 20 mg PO DAILY 10/12/15 [History] Gabapentin 600 mg PO TID 10/12/15 [History] Insulin Glargine [Lantus] 45 unit SQ DAILY 10/12/15 [History] Metformin HCl [Metformin HCl ER] 1,000 mg PO BID 10/12/15 [History] Oxycodone HCl 15 mg PO Q4H PRN 11/15/15 [History] Zolpidem [Ambien] 10 mg PO HS 11/15/15 [History] Albuterol Sulfate [Albuterol Inhaler] 2 puff IH Q4H PRN 03/18/16 [History] Allopurinol [Zyloprim 300 MG] 300 mg PO DAILY 03/18/16 [History] Aspirin 81 mg PO DAILY 03/18/16 [History] Atorvastatin Calcium [Lipitor] 80 mg PO DAILY 03/18/16 [History] Budesonide/Formoterol 160/4.5 [Symbicort 160/4.5] 2 puff IH BIDR 03/18/16 [ History] Clopidogrel [Plavix] 75 mg PO DAILY 03/18/16 [History] Lisinopril/Hydrochlorothiazide [Zestoretic 10-12.5 mg Tablet] 1 each PO BID [History] Metoprolol Succinate 100 mg PO DAILY 03/18/16 [History] Nitroglycerin [Nitrostat] 0.4 mg SL Q5M PRN 03/18/16 [History] Allergies No Known Allergies Allergy (Verified 04/08/16 20:28) All Systems PM: A 10-system review of systems was performed and is negative for pertinent findings except as documented above in the HPI. - Constitutional Constitutional: chills, fever(s) - EENT Eyes: no change in vision - Cardiovascular Cardiovascular ROS IM: no chest pain, no palpitations - Respiratory Respiratory: cough, wheezing, no dyspnea - Gastrointestinal Gastrointestinal: no abdominal pain, no change in stool character, no constipation, no diarrhea, no nausea, no vomiting - Genitourinary Genitourinary ROS male: no difficulty urinating, no dysuria - Musculoskeletal Musculoskeletal ROS IM: joint swelling, limited range of motion - Integumentary Additional comments: Pain and swelling along dorsum of right hand surrounding laceration over 2nd MCP joint - Neurological Neurological ROS: no confusion, no headache(s) - Constitutional Vitals: Temp Pulse Resp BP Pulse Ox 98.6 F 94 16 111/76 94 L 04/08/16 23:45 04/08/16 23:45 04/08/16 23:45 04/08/16 23:45 04/08/16 23:45 General appearance: Present: A&O X 3, no acute distress - Head Head exam: Present: atraumatic, normal inspection, normocephalic - Eye Eye exam: Present: EOMI, normal appearance - ENT ENT exam: Present: mucous membranes moist, normal exam - Respiratory Respiratory exam: Present: wheezes. Absent: accessory muscle use, respiratory distress, tachypnea - Cardiovascular Cardiovascular exam: Present: RRR - GI/Abdominal GI/Abdominal exam: Present: soft. Absent: guarding, rebound, tenderness - Expanded Upper Extremities Exam Hand wrist exam: Present: erythema, laceration, swelling, tenderness. Absent: crepitus, deformity Vascular exam: Present: normal capillary refill - Neurological Exam Neurological exam: Present: alert, CN II-XII intact, oriented X3 - Skin Skin exam: Present: erythema Internal Med - H&P Results - Labs CBC & Chem 7: 04/08/16 21:29 04/08/16 21:29 <Vaughn Moore - Last Filed: 04/09/16 05:15> Date of Encounter: 04/09/16 Internal Medicine - H&P: HPI History of present illness: Mr. Craig is a 60 year old male All Systems PM: A 10-system review of systems was performed and is negative for pertinent findings except as documented above in the HPI. - Constitutional Vitals: Temp Pulse Resp BP Pulse Ox 97.6 F 80 16 112/68 94 L 04/09/16 03:34 04/09/16 03:34 04/09/16 03:34 04/09/16 03:34 04/09/16 03:34 Internal Med - H&P Results - Labs CBC & Chem 7: 04/08/16 21:29 04/08/16 21:29 - Attending Attestation I examined this patient and my medical decision-making was reviewed with the Resident Physician, Dr. Alicia Ramos. I agree with the documented findings, disposition and treatment plan as described except to the extent set forth below. patient cut his hand 2 weeks ago while washing the dishes and one at the dishes broke. At the time he presented to urgent care and had his wound sutured. Yesterday he started experiencing severe sharp pain in his right hand , associated with swelling and purulent discharge, radiating up to the wrist and right forearm. He reported associated chills and subjective fevers. On exam his right hand is swollen tender to palpation with a closed wound over the second metacarpal phalangeal joint. The swelling and redness extend and to the wrist and distal third forearm. Plan: Broad-spectrum IV antibiotics, IV fluids, pain medication, orthopedics consult. He is at high risk for morbidity and mortality and complications due to treatment with IV opiates for pain control.
[2016-04-09] MEDS ORDERED: 0.9 % Sodium Chloride 1,000 ML IVC ONE (03:06)
[2016-04-09] MEDS ORDERED: *HR* Dextrose 50 % in Water (Syg) 50 ML SYRINGE IVP PRN (03:11)
[2016-04-09] MEDS ORDERED: Dextrose Gel 15 GM PO PRN ×2 (03:11)
[2016-04-09] MEDS ORDERED: D5% in Water 1,000 ML IV PRN (03:11)
[2016-04-09] MEDS ORDERED: Nitroglycerin 0.4 MG TAB.SUBL SL PRN (03:14)
[2016-04-09] MEDS: *HR* OxyCODONE Immed Rel 15 MG TABLET PO PRN ×4 (03:27→17:33)
[2016-04-09] MEDS: *HR* HYDROmorphone (PF) 1 MG/ML SYRINGE IVP PRN ×4 (04:43→21:32)
[2016-04-09] MEDS ORDERED: 0.9 % Sodium Chloride 1,000 ML IVC SCH (04:45)
[2016-04-09] MEDS: Piperacillin/Tazobactam 3.375 GM in D5% in Water (Mini-Bag+) 100 ML IVPB SCH ×3 (05:13→21:32)
[2016-04-09] MEDS: Insulin LISPRO 300 UNITS/3 ML VIAL SQ SCH ×3 (05:58→17:47)
[2016-04-09 06:08] LABS: Mean Corpuscular HGB Conc 33.5 g/dL (31.6-35.5); Mean Corpuscular Volume 95.5 fL (83.0-100.0); Mean Platelet Volume 9.4 fL (9.4-12.4); Platelet Count 197 K/mcL (140-400); Red Blood Count 3.56 M/mcL (4.19-5.50); Red Cell Distribution Width 13.8 % (11.5-14.5)
[2016-04-09 06:10] LABS: Hemoglobin A1C 11.4 %
[2016-04-09 06:12] LABS: Hemoglobin 11.4 g/dL (12.9-16.9)
[2016-04-09 06:15] LABS: BUN/Creatinine Ratio 15 (6-26); Blood Urea Nitrogen 15 mg/dL (8-26); Calcium 8.5 mg/dL (8.6-10.8); Carbon Dioxide 24 mEq/L (19-29); Chloride 98 mEq/L (98-109); Glucose 348 mg/dL (70-99); Magnesium 1.4 mg/dL (1.6-2.6); Osmolality,Calculated 287 (280-300); Phosphorous 3.9 mg/dL (2.3-4.7); Potassium 4.2 mEq/L (3.5-4.5); Sodium 131 mEq/L (136-145); eGFR For African Americans > 60 (> 60); eGFR For Non-African Americans > 60 (> 60)
[2016-04-09] MEDS ORDERED: *HR* HYDROmorphone (PF) 1 MG/ML SYRINGE IVP ONE (06:25)
[2016-04-09 06:41] LABS: C-Reactive Protein 143 mg/L (Less than 5)
[2016-04-09] MEDS: Budesonide/Formoterol 160/4.5 MDI IH SCH ×2 (08:11→21:04)
[2016-04-09] MEDS ORDERED: Magnesium Sulfate 2 GM in D5% in Water 100 ML IVPB ONE (08:14)
--- NOTE | 2016-04-09 08:26 | Event Note ---
Date of Encounter: 04/09/16 Time of Encounter: 08:23 60-year-old male with history of diabetes, hypertension, current smoker, admitted with right hand cellulitis and abscess. Patient seen and examined. Reports severe pain and swelling in his right hand, unable to move second and third fingers. Awake, alert and oriented 3. Chest-S1, S2 heard. Lungs are clear to auscultation. Coarse breath sounds bilaterally. Right dorsal hand-diffuse swelling, extending into distal forearm associated with significant tenderness, erythema and restricted range of motion in second and third finger flexion. Healing wound on second MCP joint with maximum swelling over and around this joint. Right hand cellulitis and abscess-concern for second MCP joint infection. Continue IV vancomycin and Zosyn and follow up wound cultures, sent from emergency room. Orthopedic surgery consulted, follow-up recommendations. Diabetes mellitus type 2-uncontrolled. Hemoglobin A1c noted to be 11.4%. Accu- Chek blood glucose testing shows hyperglycemia. Increase Levemir to twice- daily dosing along with sliding scale insulin. Currently nothing by mouth for possible surgery.
[2016-04-09] MEDS ORDERED: Vancomycin 1,000 MG in D5% in Water 250 ML IVPB SCH (09:00)
[2016-04-09] MEDS ORDERED: Piperacillin/Tazobactam 3.375 GM in D5% in Water (Mini-Bag+) 100 ML IVPB SCH (09:00)
[2016-04-09] MEDS: Gabapentin 300 MG CAPSULE PO SCH ×3 (09:04→20:50)
[2016-04-09] MEDS: Metoprolol XL (24 HR) Succ 50 MG TAB.ER.24H PO SCH (09:05)
[2016-04-09] MEDS: ALPRAZolam 0.5 MG TABLET PO SCH ×2 (09:05→20:50)
[2016-04-09] MEDS: Insulin DETEMIR 100 UNIT/ML X5UNITS SQ SCH ×2 (10:56→20:50)
[2016-04-09] MEDS ORDERED: *HR* Enoxaparin 40 MG/0.4 ML SYRINGE SQ ONE (11:52)
[2016-04-09] MEDS: Vancomycin 1,500 MG in D5% in Water 250 ML IVPB SCH ×2 (12:33→21:33)
[2016-04-09] MEDS: 0.9 % Sodium Chloride 1,000 ML IVC SCH (13:45)
--- NOTE | 2016-04-09 17:16 | Orthopedic Consult Note ---
Date of Encounter: 04/10/16 Time of Encounter: 16:30 Assessment and Plan (1) Cellulitis of hand Current Visit: Yes Status: Acute Patient's laceration has since closed after being opened in the ER yesterday and has had increase in fluctuance around this area. Performed bedside I&D. Procedure as well as r/b/a were discussed with patient and consent signed. Right dorsal hand over the 2nd was cleaned with hibiclense and draped in sterile fashion. The area was numbed with 10cc 1% lidocaine and 2 cm incision made through the existing laceration. Small amount of purulent drainage expressed and new wound cx collected although patient has already received IV abx and likely nothing will grow. No foreign body/glass noted within the wound. Area was probed with hemostats to break up any existing loculations then area cleansed/irrigated. Iodoform packing placed in wound to keep open and allow for drainage to continue. Bulky gauze and kerlix dressings applied. Patient tolerated procedure well without complications but did become somewhat nauseous. Nurse informed and patient will receive zofran. Keep hand elevated and continue to work on hand ROM. I will return tomorrow for dressing change and to pull the packing. History of Present Illness Chief complaint: right hand laceration HPI: Mr. Craig is a 60 year old male who presented to the ER yesterday after his hand began to swell and turn red yesterday. He obtained a laceration to dorsal right hand over 2nd 2 weeks ago while washing dishes and a glass broke and cut him. He did go to an urgent care at that time where the laceration was cleaned and closed with sutures. Patient states he was not started on an abx and was not given and follow up instructions. Patient does have a h/o DM so wound care is an extra concern. He does have numbness to the index finger and limited ROM of the hand and wrist. The pain is localized to dorsal hand into fingers and worse with ROM of the hand or palpation over the area. Denies fevers , chest pain, SOB. Past Med Surg Social Fam HX - Past Medical History Medical history: COPD, diabetes, hypertension, myocardial infarction Psychiatric history: anxiety - Past Surgical History Surgical History: angioplasty/stent, cholecystectomy, herniorrhaphy, knee replacement - Social History Smoking Status: Current every day smoker Packs per day: 0.5 Smokeless Tobacco Status: No Alcohol use: none Drug use: none - Family History Mother Living Status: Age at : 60 Hx Family Cancer: Yes (lung cancer) Father Living Status: Age at : 50 Hx Family Cancer: Yes (colon cancer) Medications and Allergies Alprazolam [Xanax 0.5 MG Tablet] 0.5 mg PO BID 10/12/15 [History] Citalopram [CeleXA] 20 mg PO DAILY 10/12/15 [History] Gabapentin 600 mg PO TID 10/12/15 [History] Insulin Glargine [Lantus] 45 unit SQ DAILY 10/12/15 [History] Metformin HCl [Metformin HCl ER] 1,000 mg PO BID 10/12/15 [History] Oxycodone HCl 15 mg PO Q4H PRN 11/15/15 [History] Zolpidem [Ambien] 10 mg PO HS 11/15/15 [History] Albuterol Sulfate [Albuterol Inhaler] 2 puff IH Q4H PRN 03/18/16 [History] Allopurinol [Zyloprim 300 MG] 300 mg PO DAILY 03/18/16 [History] Aspirin 81 mg PO DAILY 03/18/16 [History] Atorvastatin Calcium [Lipitor] 80 mg PO DAILY 03/18/16 [History] Budesonide/Formoterol 160/4.5 [Symbicort 160/4.5] 2 puff IH BIDR 03/18/16 [ History] Clopidogrel [Plavix] 75 mg PO DAILY 03/18/16 [History] Lisinopril/Hydrochlorothiazide [Zestoretic 10-12.5 mg Tablet] 1 each PO BID [History] Metoprolol Succinate 100 mg PO DAILY 03/18/16 [History] Nitroglycerin [Nitrostat] 0.4 mg SL Q5M PRN 03/18/16 [History] Allergies No Known Allergies Allergy (Verified 04/08/16 20:28) All Systems Reviewed: A 10-system review of systems was performed and is negative for pertinent findings except as documented above in the HPI. - Constitutional Constitutional: as per HPI - Cardiovascular Cardiovascular: as per HPI - Respiratory Respiratory: as per HPI - Musculoskeletal Musculoskeletal: as per HPI Physical Exam - Constitutional Vitals: Temp Pulse Resp BP Pulse Ox 98.3 F 76 14 91/51 95 04/09/16 15:01 04/09/16 15:01 04/09/16 15:01 04/09/16 15:01 04/09/16 15:01 - Wrist & Hand right Location of pain: dorsal hand (moderate erythema and swelling on dorsal hand over 2nd MC with fluctuance noted in this area and tender with palpation of dorsal hand. No tenderness to palpation along flexor tendons laceration is now healed with no openings or drainage and sutures removed, limited ROM of hand and wrist secondary to swelling and stiffness in fingers, brisk cap refill to digits, NV intact), index finger Results - Labs Result Diagrams: 04/09/16 05:03 04/09/16 21:11 Labs: Abnormal lab results RBC 3.56 M/mcL (4.19-5.50) L 04/09/16 05:03 Hgb 11.4 g/dL (12.9-16.9) L D 04/09/16 05:03 Hct 34.0 % (37.5-50.1) L 04/09/16 05:03 Neutrophils # 14.1 K/mcL (1.6-8.9) H 04/08/16 21:29 ESR 46 mm/hr (0-10) H 04/09/16 05:03 Sodium 131 mEq/L (136-145) L 04/09/16 05:03 Glucose 176 mg/dL (70-99) H 04/09/16 15:02 POC Glucose 146 (58-89) H 04/09/16 11:14 Hemoglobin A1c 11.4 % (-5.6) H 04/09/16 05:03 Calcium 8.5 mg/dL (8.6-10.8) L 04/09/16 05:03 Magnesium 1.4 mg/dL (1.6-2.6) L 04/09/16 05:03 C-Reactive Protein 143 mg/L (Less than 5) H 04/09/16 05:03 H & H 04/09/16 Range/Units 05:03 Hgb 11.4 L D (12.9-16.9) g/dL Hct 34.0 L (37.5-50.1) % All other labs normal. - Diagnostic results Wrist/Hand x-ray: report reviewed, image reviewed Consult Discharge Plan - Plan Referrals: Cyrus Coyne DO [Primary Care Provider] - - Attending Attestation Case and plan of care discussed with supervising physician who was available for all aspects of care.
[2016-04-09] MEDS ORDERED: Insulin DETEMIR 100 UNIT/ML X5UNITS SQ SCH (21:00)
[2016-04-10] MEDS: Insulin LISPRO 300 UNITS/3 ML VIAL SQ SCH ×3 (00:49→11:56)
[2016-04-10] MEDS: *HR* OxyCODONE Immed Rel 15 MG TABLET PO PRN ×3 (04:13→14:36)
[2016-04-10] MEDS: 0.9 % Sodium Chloride 1,000 ML IVC SCH ×2 (06:08→11:33)
[2016-04-10] MEDS: Piperacillin/Tazobactam 3.375 GM in D5% in Water (Mini-Bag+) 100 ML IVPB SCH (06:08)
[2016-04-10] MEDS ORDERED: *HR* Enoxaparin 40 MG/0.4 ML SYRINGE SQ SCH (07:00)
[2016-04-10] MEDS: Budesonide/Formoterol 160/4.5 MDI IH SCH (08:26)
[2016-04-10] MEDS: Metoprolol XL (24 HR) Succ 50 MG TAB.ER.24H PO SCH (08:33)
[2016-04-10] MEDS: ALPRAZolam 0.5 MG TABLET PO SCH (08:35)
[2016-04-10] MEDS: Gabapentin 300 MG CAPSULE PO SCH ×2 (08:35→14:36)
[2016-04-10 08:54] LABS: Hematocrit 33.6 % (37.5-50.1); Hemoglobin 11.1 g/dL (12.9-16.9); Mean Corpuscular Hemoglobin 31.7 pg (28.0-33.3); Platelet Count 217 K/mcL (140-400); Red Cell Distribution Width 14.1 % (11.5-14.5)
[2016-04-10] MEDS: Insulin DETEMIR 100 UNIT/ML X5UNITS SQ SCH (09:00)
[2016-04-10 09:06] LABS: BUN/Creatinine Ratio 14 (6-26); Blood Urea Nitrogen 14 mg/dL (8-26); Calcium 8.7 mg/dL (8.6-10.8); Carbon Dioxide 22 mEq/L (19-29); Chloride 104 mEq/L (98-109); Glucose 186 mg/dL (70-99); Magnesium 1.9 mg/dL (1.6-2.6); Osmolality,Calculated 285 (280-300); Phosphorous 4.4 mg/dL (2.3-4.7); Potassium 4.4 mEq/L (3.5-4.5); Sodium 135 mEq/L (136-145); eGFR For African Americans > 60 (> 60); eGFR For Non-African Americans > 60 (> 60)
[2016-04-10] MEDS: *HR* HYDROmorphone (PF) 1 MG/ML SYRINGE IVP PRN (11:27)
[2016-04-10 11:39] LABS: C-Reactive Protein 118 mg/L (Less than 5)
[2016-04-10] MEDS ORDERED: Ampicillin/Sulbactam 3,000 MG in 0.9 % Sodium Chloride Mini Bag 100 ML IVPB SCH (12:00)
--- NOTE | 2016-04-10 14:44 | Orthopedics Progress Note ---
Date of Encounter: 04/10/16 Time of Encounter: 14:00 - Assessment and Plan (1) Cellulitis of hand Current Visit: Yes Status: Acute There has been some improvement in the swelling to the hand but still moderate erythema and stiffness in the hand and wrist. Packing removed today and new dressings placed. Patient instructed how to do local wound care washing the wound with soap and water 3xday and keep covered with dry gauze dressing until healed. This will need to be performed by nursing while patient still in hospital. Wound cx resulted in strep agalactiae - Group B. WBC has returned to normal level but ESR and CRP are still significantly elevated. Patient has uncontrolled DM based on HgA1c of 11.4 so recommend he stay another night for continued IV abx before being discharged. Would like to see more improvement before switching to PO abx. Continue to work on hand ROM. Continue elevation of hand. Recommend hand is hung from IV pole with stockinette to help decrease the swelling. Follow up with Luz Maria Nazario PA-C in [place] in 1 week for re-evaluation. Subjective Principal diagnosis: Right hand cellulitis Interval history: Patient feeling better today and has been working on ROM of hand. No concerns or events overnight. Objective Vital signs: Vital Signs Temp Pulse Resp BP Pulse Ox 04/10/16 11:37 98.3 F 75 16 94/57 93 L 04/10/16 08:27 16 92 L 04/10/16 07:45 98.2 F 78 14 102/64 93 L 04/10/16 03:50 99.7 F H 75 14 97/60 93 L 04/09/16 23:21 100.0 F H 80 14 101/64 94 L 04/09/16 21:06 18 91 L 04/09/16 20:47 99.6 F 88 18 153/87 97 04/09/16 18:46 98.8 F 81 15 95/57 96 04/09/16 15:01 98.3 F 76 14 91/51 95 Intake and Output 04/09/16 04/10/16 04/10/16 23:59 07:59 15:59 Intake Total 912 / 912 538 / 538 957 / 957 Output Total 400 / 400 475 / 475 650 / 650 Balance 512 / 512 63 / 63 307 / 307 Intake: IV Fluids 912 / 912 538 / 538 717 / 717 0.9 % Sodium Chloride 1, 562 / 562 438 / 438 413 / 413 000 ML @ 80 mls/hr IVC . [id number] STEPHANE Rx#: [id number] Unasyn 3,000 MG In 0.9 % 100 / 100 Sodium Chloride (Mini-Bag +) 100 ML @ 200 mls/hr IVPB Q6HR STEPHANE Rx#: [id number] Zosyn 3.375 GM In 100 / 100 100 / 100 100 / 100 Dextrose 5% (Minibag+) 100 ML 100 ML @ 25 mls/hr IVPB Q8H STEPHANE Rx#: [id number] Vancocin 1,500 MG In 250 / 250 Dextrose 5% 250 ML @ 166. 667 mls/hr IVPB Q12H STEPHANE Rx#:[id number] Oral 0 / 0 240 / 240 Output: Urine 400 / 400 475 / 475 650 / 650 Other: Meal npo Breakfast Percent of Meal Consumed 0% 100% Weight 92.3 kg Blood Glucose* 238 112 362 Patient Weight 04/10/16 23:59 Weight 92.3 kg Incision: red (Minimal drainage seen on dressing when removed with no active drainage, packing intact, Still has moderate erythema to the entire dorsal right hand into forearm, mild swelling which is decreased compared to yesterday , slight improvement in ROM of hand but still moderate stiffness in fingers secondary to swelling, brisk cap refill, NV intact) - Labs CBC & BMP: 04/10/16 08:31 04/10/16 08:31 Labs: Abnormal lab results RBC 3.50 M/mcL (4.19-5.50) L 04/10/16 08:31 Hgb 11.1 g/dL (12.9-16.9) L 04/10/16 08:31 Hct 33.6 % (37.5-50.1) L 04/10/16 08:31 MPV 9.0 fL (9.4-12.4) L 04/10/16 08:31 Neutrophils # 14.1 K/mcL (1.6-8.9) H 04/08/16 21:29 ESR 63 mm/hr (0-10) H 04/10/16 08:31 Sodium 135 mEq/L (136-145) L 04/10/16 08:31 Glucose 186 mg/dL (70-99) H 04/10/16 08:31 POC Glucose 362 (58-89) H 04/10/16 11:47 Hemoglobin A1c 11.4 % (-5.6) H 04/09/16 05:03 C-Reactive Protein 118 mg/L (Less than 5) H 04/10/16 08:31 Consult Discharge Plan - Plan Referrals: Cyrus Coyne DO [Primary Care Provider] -
[2016-04-10 15:29] VITALS: BP 120/67
--- NOTE | 2016-04-10 15:58 | Discharge Summary ---
Date of Encounter: 04/10/16 Time of Encounter: 09:30 - Discharge Diagnosis (1) Cellulitis of right hand Priority: Primary Status: Acute (2) Anxiety Priority: Secondary Status: Chronic (3) COPD (chronic obstructive pulmonary disease) Priority: Secondary Status: Chronic Qualifiers: COPD type: unspecified COPD Qualified Code(s): J44.9 - Chronic obstructive pulmonary disease, unspecified (4) Diabetic neuropathy Priority: Secondary Status: Chronic Qualifiers: Diabetes mellitus type: type 2 Diabetes mellitus complication detail: diabetic polyneuropathy Qualified Code(s): E11.42 - Type 2 diabetes mellitus with diabetic polyneuropathy (5) Gout Priority: Secondary Status: Chronic Qualifiers: Gout site: multiple sites Gout etiology: unspecified cause Chronicity: chronic Qualified Code(s): M1A.09X0 - Idiopathic chronic gout, multiple sites , without tophus (tophi) (6) Chronic back pain Priority: Secondary Status: Chronic Qualifiers: Back pain location: low back pain Back pain laterality: unspecified Sciatica presence: with sciatica Sciatica laterality: sciatica laterality unspecified Qualified Code(s): M54.40 - Lumbago with sciatica, unspecified side; G89.29 - Other chronic pain (7) Diabetes mellitus type 2 in nonobese Priority: Secondary Status: Chronic (8) HTN (hypertension) Priority: Secondary Status: Chronic Qualifiers: Hypertension type: essential hypertension Qualified Code(s): I10 - Essential (primary) hypertension (9) Tobacco abuse Priority: Secondary Status: Chronic (10) CAD (coronary artery disease), [place] coronary artery Priority: Secondary Status: Chronic Qualifiers: [place] vs. transplanted heart: [place] heart Associated angina: without angina Qualified Code(s): I25.10 - Atherosclerotic heart disease of [place] coronary artery without angina pectoris - Discharge Medications Prescriptions: Amoxicillin/Clavulanate [Augmentin] 875 mg PO BIDWM 7 Days Clindamycin HCl 300 mg PO Q6H 7 Days Lactobacillus [Culturelle] 1 each PO BID 10 Days Home Medications: Alprazolam [Xanax 0.5 MG Tablet] 0.5 mg PO BID 10/12/15 [History] Citalopram [CeleXA] 20 mg PO DAILY 10/12/15 [History] Gabapentin 600 mg PO TID 10/12/15 [History] Insulin Glargine [Lantus] 45 unit SQ DAILY 10/12/15 [History] Metformin HCl [Metformin HCl ER] 1,000 mg PO BID 10/12/15 [History] Oxycodone HCl 15 mg PO Q4H PRN 11/15/15 [History] Zolpidem [Ambien] 10 mg PO HS 11/15/15 [History] Albuterol Sulfate [Albuterol Inhaler] 2 puff IH Q4H PRN 03/18/16 [History] Allopurinol [Zyloprim 300 MG] 300 mg PO DAILY 03/18/16 [History] Aspirin 81 mg PO DAILY 03/18/16 [History] Atorvastatin Calcium [Lipitor] 80 mg PO DAILY 03/18/16 [History] Budesonide/Formoterol 160/4.5 [Symbicort 160/4.5] 2 puff IH BIDR 03/18/16 [ History] Clopidogrel [Plavix] 75 mg PO DAILY 03/18/16 [History] Lisinopril/Hydrochlorothiazide [Zestoretic 10-12.5 mg Tablet] 1 each PO BID [History] Metoprolol Succinate 100 mg PO DAILY 03/18/16 [History] Nitroglycerin [Nitrostat] 0.4 mg SL Q5M PRN 03/18/16 [History] Amoxicillin/Clavulanate [Augmentin] 875 mg PO BIDWM 7 Days 04/10/16 [Rx] Clindamycin HCl 300 mg PO Q6H 7 Days 04/10/16 [Rx] Lactobacillus [Culturelle] 1 each PO BID 10 Days 04/10/16 [Rx] Allergies/Adverse Reactions: Allergies No Known Allergies Allergy (Verified 04/08/16 20:28) Procedures/tests Complete & Pending: Procedures Performed prior 72 hours Category Date Time Status CT UE RT w con [CT] Stat Cat Scan 04/09/16 03:06 Completed Date of admission: 04/09/16 02:57 Primary care physician: Gudelia Hubbard Consults: 04/09/16 15:16 Consult to Pension Adviser [CONS] Routine Comment: HGB A1C 11.4 Discharging clinician: Morelia Meyer Anticipated date of discharge: 04/10/16 - Patient Status Disposition: Left Against Medical Advice Condition: Fair Functional capacity at discharge: independent ambulation Overall status at discharge: patient is progressing back to baseline - Discharge Instructions Follow Up With: Cyrus Coyne DO [Primary Care Provider] - Additional Instructions: F/up with Orthopedics in 1 week - Diet and Activity Diet: diabetic diet, low fat, low cholesterol, low salt diet Hospital course: Mr. Craig is a 60 year old male with the above medical problems, who was admitted with worsening right hand pain, redness and swelling. He was noted to have cellulitis of right hand secondary to injury from broken glass, for which he received suturing at urgent care prior to this presentation. The sutures were removed in the emergency room, pulse was expressed, and wound cultures were sent along with blood cultures. He was started on broad-spectrum IV antibiotics-vancomycin and Zosyn. CT right hand was done which showed possible underlying abscess over the second MCP joint. Orthopedic surgery was consulted and he underwent bedside incision and drainage of the pus. He was also noted to have uncontrolled diabetes with elevated hemoglobin A1c and received diabetes education while in the hospital. His blood sugars were initially elevated but gradually better controlled with the use of basal bolus insulin regimen. His symptoms gradually improved but after discussing with orthopedic surgery, he was still considered to be at risk for infection as there was intense erythema noted at the site of incision. His fever and leukocytosis improved but he had persistent pain. Initial wound culture grew group B streptococcus and his antibiotics were changed to IV Unasyn and clindamycin. At this time, he was recommended to be monitored in the hospital with continued IV antibiotics due to severity of infection, however despite understanding the risks including worsening infection/osteomyelitis requiring amputation, sepsis, shock and , patient decided to leave AGAINST MEDICAL ADVICE and signed AMA papers. He is being discharged on oral Augmentin and clindamycin and recommended to follow up with orthopedic surgery as outpatient. - Time Spent with Patient Total time spent providing and/or coordinating discharge services: Greater than 30 minutes (45 min) - Constitutional Vitals: Temp Pulse Resp BP Pulse Ox 98.9 F 85 12 120/67 99 04/10/16 15:28 04/10/16 15:28 04/10/16 15:28 04/10/16 15:28 04/10/16 15:28 General appearance: Present: A&O X 3, no acute distress - Respiratory Respiratory exam: Present: CTAB. Absent: accessory muscle use, rales, rhonchi, wheezes - Cardiovascular Cardiovascular exam: Present: RRR, +S1, +S2. Absent: diastolic murmur, gallop, rubs, systolic murmur
[2016-04-10] MEDS ORDERED: Clindamycin 600 MG/50 ML 600 MG/50 ML IV.SOLN IVPB SCH (16:00)
[2016-04-10] MEDS ORDERED: Aminoglycoside Consult 1 EACH MC ONE (16:09)
== END 2016-04-10 16:10 | disposition left against medical advice (07) | DRG 603 ==
LOC: 3ANU 19:02 → EMEROO 19:02 → 3ANU 23:24
PROVIDERS: ADMIT Internal Medicine; ATTEND Internal Medicine

== ENCOUNTER 2016-05-11 18:32 | Inpatient (IN) ==
[2016-05-11] MEDS: Nitroglycerin 0.4 MG TAB.SUBL SL ONE ×2 (18:59→19:09)
--- NOTE | 2016-05-11 19:02 | Emergency Department Note ---
Disposition Clinical Impression: Non-STEMI (non-ST elevated myocardial infarction) Disposition: Admitted As Inpatient Condition: Good Chest Pain HPI - General Chief Complaint: ED Chest Pain Stated Complaint: chest pain Time Seen by Provider: 05/11/16 18:48 Source: patient, EMS Mode of arrival: EMS Limitations: no limitations Vital Signs Reviewed: Yes Nursing Notes Reviewed: Yes - History of Present Illness HPI Narrative: 60-year-old male history of CAD status post 4 cardiac stents, diabetes, hypertension, hyperlipidemia, smoking who presents to the ER via EMS due to chest pain. Patient reports chest pain began this evening at rest. He describes left-sided sharp chest pain with radiation into his left jaw. He reports he is also felt short of breath with it. He states "this is how I felt before I coated last time". Patient reports his last stent was roughly 2 years ago. No cardiac catheterization since then as per the patient. Patient denies a history of DVT or PE. He is on Plavix for CVA in the past. She was given aspirin and one sublingual nitroglycerin in route without improvement of his symptoms. No other complaints. Pt complaint: chest pain Onset (ago): Just [employer] Duration: constant Onset: during rest Pain Location: left chest Severity: severe Severity scale (1-10): 8 Quality: sharp Pain Radiation: jaw/teeth Improves with: nothing Worsens with: nothing Associated symptoms: Reports: dyspnea. Denies: nausea, vomiting, cough Treatments prior to arrival chest pain: aspirin - Related Data On Oral Contraceptives: No Home Medications Medication Instructions Recorded Confirmed Alprazolam [Xanax 0.5 MG Tablet] 0.5 mg PO BID 10/12/15 04/08/16 Citalopram [CeleXA] 20 mg PO DAILY 10/12/15 04/08/16 Gabapentin 600 mg PO TID 10/12/15 04/08/16 Insulin Glargine [Lantus] 45 unit SQ DAILY 10/12/15 04/08/16 Metformin HCl [Metformin HCl ER] 1,000 mg PO BID 10/12/15 04/08/16 Oxycodone HCl 15 mg PO Q4H PRN 11/15/15 04/08/16 Zolpidem [Ambien] 10 mg PO HS 11/15/15 04/08/16 Albuterol Sulfate [Albuterol 2 puff IH Q4H PRN 03/18/16 04/08/16 Inhaler] Allopurinol [Zyloprim 300 MG] 300 mg PO DAILY 03/18/16 04/08/16 Aspirin 81 mg PO DAILY 03/18/16 04/08/16 Atorvastatin Calcium [Lipitor] 80 mg PO DAILY 03/18/16 04/08/16 Budesonide/Formoterol 160/4.5 2 puff IH BIDR 03/18/16 04/08/16 [Symbicort 160/4.5] Clopidogrel [Plavix] 75 mg PO DAILY 03/18/16 04/08/16 Lisinopril/Hydrochlorothiazide 1 each PO BID 03/18/16 04/08/16 [Zestoretic 10-12.5 mg Tablet] Metoprolol Succinate 100 mg PO DAILY 03/18/16 04/08/16 Nitroglycerin [Nitrostat] 0.4 mg SL Q5M PRN 03/18/16 04/08/16 Previous Rx's Medication Instructions Recorded Amoxicillin/Clavulanate [Augmentin] 875 mg PO BIDWM 7 Days 04/10/16 Clindamycin HCl 300 mg PO Q6H 7 Days 04/10/16 Lactobacillus [Culturelle] 1 each PO BID 10 Days 04/10/16 Allergies Allergy/AdvReac Type Severity Reaction Status Date / Time No Known Allergies Allergy Verified 05/11/16 18:33 All systems ED: reviewed and negative except as stated. Constitutional: Denies: fever Cardiovascular: Reports: chest pain. Denies: palpitations Respiratory: Reports: dyspnea. Denies: cough Gastrointestinal: Denies: abdominal pain, nausea, vomiting, diarrhea Musculoskeletal: Reports: neck pain. Denies: back pain Chest Pain PMH - Past Medical History Medical history: Reports: COPD, diabetes, hypertension, myocardial infarction Surgical history: Reports: angioplasty/stent, cholecystectomy, herniorrhaphy, knee replacement Psychiatric history: Reports: anxiety - Social History Smoking Status: Current every day smoker Alcohol use: Reports: none Drug use: Reports: none Physical Exam - General Limitations: no limitations General appearance: alert, in no apparent distress - Head Head exam: atraumatic, normocephalic, normal inspection - Eye Eye exam: Present: normal appearance, EOMI - ENT ENT exam: normal exam - Neck Neck exam: Present: normal inspection - Chest Chest inspection: Present: normal inspection, symmetric chest wall rise. Absent : tenderness - Respiratory Respiratory exam: Present: normal lung sounds bilaterally - Cardiovascular Cardiovascular exam: Present: regular rate, normal rhythm, normal heart sounds - Abdominal Exam Abdominal exam: Present: soft, Non-Tender. Absent: tenderness - Extremities Exam Extremities exam: Present: normal inspection, full ROM - Expanded Upper Extremity Exam Shoulder exam: Present: normal inspection, full ROM Arm exam: Present: normal inspection, full ROM Elbow exam: Present: normal inspection, full ROM Forearm/Wrist exam: Present: normal inspection, full ROM Hand exam: Present: normal inspection, full ROM - Expanded Lower Extremity Exam Hip/Pelvis exam: Present: normal inspection, full ROM Upper leg exam: Present: normal inspection, full ROM Knee exam: Present: normal inspection, full ROM Lower leg exam: Present: normal inspection, full ROM Ankle exam: Present: normal inspection, full ROM Foot/toe exam: Present: normal inspection, full ROM - Neurological Exam Neurological exam: Present: alert - Psychiatric Psychiatric exam: Present: normal affect, normal mood - Skin Skin exam: Present: warm, dry, intact, normal color Course Course Narrative: Patient seen and examined. Vital signs reviewed. We will get an EKG, chest x- ray as well as labs including troponin and BNP. I will review his previous workups here. - Reevaluation(s) Reevaluation #1: Patient reported worsening chest pain. We repeated a 12-lead EKG. Normal sinus rhythm with a rate of 83 bpm. Normal axis. [place] interval 157 QRS duration [address] elevations or depressions. No significant changes from previous EKG obtained on arrival. Reevaluation #2: Patient still having pain. We will give her a milligram of Dilaudid. Case discussed with the hospitalist. They request to start a nitro drip. - Consultations Consultation #1: I discussed this patient with the on-call sales representative consultant Dr. Phillips. She reports to begin a heparin drip as well as the nitro drip with continued serial troponins. Vital Signs Temperature 98.7 F 05/11/16 18:34 Pulse Rate 91 05/11/16 18:34 Respiratory Rate 16 05/11/16 18:34 Blood Pressure 158/84 05/11/16 18:34 O2 Sat by Pulse Oximetry 96 05/11/16 18:34 Temperature 98.7 F 05/11/16 18:34 Pulse Rate 82 05/11/16 21:20 Respiratory Rate 16 05/11/16 23:02 Blood Pressure 126/92 05/11/16 23:02 O2 Sat by Pulse Oximetry 98 05/11/16 21:20 Oxygen Delivery Oxygen Delivery Room Air Chest Pain - MDM Narrative Medical decision making narrative: 60-year-old male presents to the ER due to left-sided chest pain. Reports this is similar to symptoms prior to his recent stenting. Patient is a known history of CAD. Patient was given nitroglycerin sublingual without improvement. Also was placed on a nitro drip without improvement of his symptoms. Patient was provided 2 mg of Dilaudid as well. Case was discussed with the sales representative consultant who recommends to start the patient on a heparin drip. Troponin came back at 0.08. Chest x-ray unremarkable. Patient admitted to the hospitalist service for further management. - Lab Data Lab results reviewed: Yes I reviewed the patient's lab results. Result diagrams: 05/11/16 19:22 05/11/16 19:22 Lab Results 05/11/16 05/11/16 05/11/16 Range/Units 19:22 19:22 19:22 WBC 8.0 (4.3-11.1) K/mcL RBC 3.92 L (4.19-5.50) M/mcL Hgb 12.3 L (12.9-16.9) g/dL Hct 37.0 L (37.5-50.1) % MCV 94.4 (83.0-100.0) fL MCH 31.4 (28.0-33.3) pg MCHC 33.2 (31.6-35.5) g/dL RDW 13.8 (11.5-14.5) % Plt Count 240 (140-400) K/mcL MPV 9.1 L (9.4-12.4) fL Immature Gran % 0.4 (0-4) % Seg Neutrophils % 64.6 % Lymphocytes % 28.4 % Monocytes % 4.2 % Eosinophils % 1.9 % Basophils % 0.5 % Neutrophils # 5.2 (1.6-8.9) K/mcL Lymphocytes # 2.3 (0.6-4.6) K/mcL Monocytes # 0.3 (0.0-1.3) K/mcL Eosinophils # 0.2 (0.0-0.6) K/mcL Basophils # 0.0 (0.0-0.2) K/mcL PT 10.4 (9.4-12.1) Seconds INR 1.0 APTT 30.3 (26.0-36.0) Seconds Sodium (136-145) mEq/L Potassium (3.5-4.5) mEq/L Chloride (98-109) mEq/L Carbon Dioxide (19-29) mEq/L BUN (8-26) mg/dL Creatinine (0.72-1.25) mg/dL Est GFR ( Amer) (> 60) Est GFR (Non-Af Amer) (> 60) BUN/Creatinine Ratio (6-26) Glucose (70-99) mg/dL Calculated Osmolality (280-300) Calcium (8.6-10.8) mg/dL Troponin I (0-0.03) ng/mL B-Natriuretic Peptide 108 H (0-100) pg/mL 05/11/16 05/11/16 Range/Units 19:22 19:22 WBC (4.3-11.1) K/mcL RBC (4.19-5.50) M/mcL Hgb (12.9-16.9) g/dL Hct (37.5-50.1) % MCV (83.0-100.0) fL MCH (28.0-33.3) pg MCHC (31.6-35.5) g/dL RDW (11.5-14.5) % Plt Count (140-400) K/mcL MPV (9.4-12.4) fL Immature Gran % (0-4) % Seg Neutrophils % % Lymphocytes % % Monocytes % % Eosinophils % % Basophils % % Neutrophils # (1.6-8.9) K/mcL Lymphocytes # (0.6-4.6) K/mcL Monocytes # (0.0-1.3) K/mcL Eosinophils # (0.0-0.6) K/mcL Basophils # (0.0-0.2) K/mcL PT (9.4-12.1) Seconds INR APTT (26.0-36.0) Seconds Sodium 134 L (136-145) mEq/L Potassium 4.2 (3.5-4.5) mEq/L Chloride 102 (98-109) mEq/L Carbon Dioxide 23 (19-29) mEq/L BUN 12 (8-26) mg/dL Creatinine 0.99 (0.72-1.25) mg/dL Est GFR ( Amer) > 60 (> 60) Est GFR (Non-Af Amer) > 60 (> 60) BUN/Creatinine Ratio 12 (6-26) Glucose 367 H (70-99) mg/dL Calculated Osmolality 293 (280-300) Calcium 9.2 (8.6-10.8) mg/dL Troponin I 0.08 H* (0-0.03) ng/mL B-Natriuretic Peptide (0-100) pg/mL - Radiology Data Radiology results reviewed: Yes I reviewed the patient's radiology results. Chest X-Ray 05/11/16 18:49 IMPRESSION: 1. No acute cardiopulmonary disease. D/ / Puneet oSrenson MD / Puneet Sorenson MD Interpreting Provider: Puneet Sorenson MD - EKG Data EKG attestation: Yes I reviewed and interpreted this EKG. EKG results narrative: EKG demonstrates normal sinus rhythm with a rate of 92 bpm. Normal axis. [place] interval 146 QRS duration 87 QTc 384 T wave flattening in aVL. No ST elevations or depressions. No acute ischemic findings. No significant changes from previous EKG dated 03/18/16. Heart Score - Score History: Moderately Suspicious EKG: Non Specific repolarisation Disturbance Age: 45-65 Risk Factors: Equal/Greater than 3 risk factor or history of atherosclerotic disease Troponin: 1-3x normal limit HEART Score Total: 6 Critical Care Time Critical Care Time: Yes Total Critical Care Time: 45 Attestation: Critical care performed: Time is exclusive of separately billable procedures. Time includes: direct patient care, patient reassessment, coordination of patient care, interpretation of data (laboratory data, radiology data, and respiratory data), review of patient's medical records, medical consultation and documentation of patient care. Procedures included in critical care time: Procedures excluded from critical care time: S.B.A.R. - S.B.A.R. Situation: Demographics, MOA Background: Presenting Complaint, Relevant PMH, Meds, & Allergies Assessment: Vital Signs, Course and respsone to treatment, Exam Concerns, Patient/Family Expectation, Pertinant Lab Results, Outstanding Labs Recommendation: Barrier(s) to disposition, Recommendation based on pending studies, treatments, or consults S.B.A.R. Report Given to: Dr. Regalado Attestation Statement - Attestation Attestation: I, Patrice Jalloh MD, personally performed a history and physical exam of the patient and discussed their management with the resident. I reviewed the resident's note and agree with the documented findings, medical decision making , and plan of care. 60-year-old male presents to the emergency department complaining of severe left -sided substernal chest pain which radiates up to the left neck and left jaw. Symptoms started a few hours ago while driving. Patient describes the pain as sharp and stabbing and worse with taking a deep breath. He states this feels the same as when he has had heart attacks in the past. No diaphoresis. No nausea or vomiting. Mild shortness of breath. No palpitations. On examination patient is a well-developed well-nourished male in no acute distress. Does appear to be in some discomfort. Patient is alert and oriented 3. There is no cyanosis or diaphoresis. Breath sounds are clear and equal bilaterally. Heart regular rate and rhythm. No ectopy noted. Abdomen soft and nontender with normal bowel sounds. No acute changes on EKG. Chest x-ray negative. Labs reviewed. Troponin 0.08. The patient continued to have pain despite nitroglycerin and nitroglycerin drip. Repeat EKG still shows no acute changes. Dr. Ross discussed the case with the sales representative consultant he recommended continuing nitroglycerin drip and starting patient on heparin infusion and admit to the hospitalist. The hospitalist, Dr. Regalado, was consulted and accepted admission of the patient.
[2016-05-11] MEDS ORDERED: *HR* Morphine 2 MG/ML SYRINGE IVP ONE (19:14)
[2016-05-11 19:36] LABS: Basophils % 0.5 %; Eosinophils # 0.2 K/mcL (0.0-0.6); Eosinophils % 1.9 %; Hemoglobin 12.3 g/dL (12.9-16.9); Immature Granulocytes % 0.4 % (0-4); Lymphocytes # 2.3 K/mcL (0.6-4.6); Lymphocytes % 28.4 %; Mean Corpuscular HGB Conc 33.2 g/dL (31.6-35.5); Mean Corpuscular Hemoglobin 31.4 pg (28.0-33.3); Mean Corpuscular Volume 94.4 fL (83.0-100.0); Mean Platelet Volume 9.1 fL (9.4-12.4); Monocytes # 0.3 K/mcL (0.0-1.3); Monocytes % 4.2 %; Neutrophils # 5.2 K/mcL (1.6-8.9); Platelet Count 240 K/mcL (140-400); Red Blood Count 3.92 M/mcL (4.19-5.50); Red Cell Distribution Width 13.8 % (11.5-14.5); Segmented Neutrophils % 64.6 %
[2016-05-11 19:39] LABS: Prothrombin Time 10.4 Seconds (9.4-12.1)
[2016-05-11 19:42] LABS: Activated Partial Thrombo Time 30.3 Seconds (26.0-36.0)
[2016-05-11 19:48] LABS: BUN/Creatinine Ratio 12 (6-26); Blood Urea Nitrogen 12 mg/dL (8-26); Calcium 9.2 mg/dL (8.6-10.8); Carbon Dioxide 23 mEq/L (19-29); Chloride 102 mEq/L (98-109); Glucose 367 mg/dL (70-99); Osmolality,Calculated 293 (280-300); Potassium 4.2 mEq/L (3.5-4.5); Sodium 134 mEq/L (136-145); eGFR For African Americans > 60 (> 60); eGFR For Non-African Americans > 60 (> 60)
[2016-05-11] MEDS ORDERED: *HR* HYDROmorphone (PF) 1 MG/ML SYRINGE IVP ONE ×3 (20:16→23:04)
[2016-05-11] MEDS ORDERED: Nitroglycerin 25 MG/250 ML INFUS..BTL IVC SCH ×2 (20:45→23:30)
[2016-05-11] MEDS ORDERED: Ondansetron 4 MG/2 ML VIAL IVP ONE (20:49)
[2016-05-11] MEDS ORDERED: *HR* Heparin 5,000 UNIT/ML VIAL IVP ONE ×2 (21:50→23:26)
[2016-05-11] MEDS ORDERED: *HR* Heparin 5,000 UNIT/ML VIAL IVP PRN ×3 (21:50→23:26)
[2016-05-11] MEDS ORDERED: Heparin 25,000 UNIT/500 ML D5W 25,000 UNIT/500 ML MLS IVC SCH ×2 (22:00→23:30)
[2016-05-11] MEDS ORDERED: *HR* OxyCODONE Immed Rel 15 MG TABLET PO PRN (23:22)
[2016-05-11] MEDS ORDERED: Nitroglycerin 0.4 MG TAB.SUBL SL PRN ×2 (23:22→23:26)
[2016-05-11] MEDS ORDERED: Acetaminophen 325 MG TABLET PO PRN (23:26)
[2016-05-11] MEDS ORDERED: Dextrose Gel 15 GM PO PRN ×2 (23:26)
[2016-05-11] MEDS ORDERED: D5% in Water 1,000 ML IV PRN (23:26)
[2016-05-11] MEDS ORDERED: *HR* Metoprolol 5 MG/5 ML VIAL IVP PRN (23:26)
[2016-05-11] MEDS ORDERED: *HR* Dextrose 50 % in Water (Syg) 50 ML SYRINGE IVP PRN (23:26)
[2016-05-11] MEDS ORDERED: *HR* Promethazine 25 MG/ML VIAL IVP PRN (23:26)
[2016-05-11] MEDS ORDERED: Naloxone 0.4 MG/ML INJ IVP PRN (23:26)
[2016-05-11] MEDS ORDERED: NON-FORMULARY MEDICATION 1 EACH EACH (Insulin Glargine [Lantus] 45 UNIT) SQ SCH (23:30)
[2016-05-11] MEDS ORDERED: *HR* Morphine 2 MG/ML SYRINGE IVP PRN (23:39)
--- NOTE | 2016-05-11 23:46 | Internal Med History&Physical ---
Date of Encounter: 05/11/16 Time of Encounter: 23:00 Assessment and Plan (1) Acute chest wall pain Status: Acute .. (2) Chest pain with moderate risk of acute coronary syndrome Status: Acute . (3) History of PTCA Status: Chronic . (4) Nicotine dependence with nicotine-induced disorder Status: Chronic . Qualifiers: Nicotine product type: cigarettes Qualified Code(s): F17.219 - Nicotine dependence, cigarettes, with unspecified nicotine-induced disorders (5) CAD (coronary artery disease), [place] coronary artery Status: Chronic . Qualifiers: [place] vs. transplanted heart: [place] heart Associated angina: without angina Qualified Code(s): I25.10 - Atherosclerotic heart disease of [place] coronary artery without angina pectoris (6) HTN (hypertension) Status: Chronic . Qualifiers: Hypertension type: essential hypertension Qualified Code(s): I10 - Essential (primary) hypertension (7) DM type 2 (diabetes mellitus, type 2) Status: Chronic . Qualifiers: Diabetes mellitus complication status: with unspecified complications Diabetes mellitus manager route insulin use: with manager route use Qualified Code(s) : E11.8 - Type 2 diabetes mellitus with unspecified complications; Z79.4 - clinical team lead (current) use of insulin (8) Chest pain, rule out acute myocardial infarction Status: Acute . (9) Unstable angina pectoris Status: Acute . (10) COPD (chronic obstructive pulmonary disease) Status: Chronic . Qualifiers: COPD type: unspecified COPD Qualified Code(s): J44.9 - Chronic obstructive pulmonary disease, unspecified (11) Anxiety Status: Chronic . (12) Diabetic neuropathy Status: Chronic . Qualifiers: Diabetes mellitus type: type 2 Diabetes mellitus complication detail: diabetic polyneuropathy Qualified Code(s): E11.42 - Type 2 diabetes mellitus with diabetic polyneuropathy (13) Non-STEMI (non-ST elevated myocardial infarction) Status: Acute . (14) Protein-calorie malnutrition, moderate Status: Chronic . (15) HLD (hyperlipidemia) Status: Chronic . Qualifiers: Hyperlipidemia type: mixed hyperlipidemia Qualified Code(s): E78.2 - Mixed hyperlipidemia (16) Poorly controlled diabetes mellitus Status: Chronic . (17) Hypomagnesemia Status: Acute . (18) Chronic pain associated with significant psychosocial dysfunction Status: Chronic . (19) Chronic back pain Status: Chronic . Qualifiers: Back pain location: low back pain Back pain laterality: unspecified Sciatica presence: with sciatica Sciatica laterality: sciatica laterality unspecified Qualified Code(s): M54.40 - Lumbago with sciatica, unspecified side; G89.29 - Other chronic pain Internal Medicine - H&P: HPI Chief complaint: Chest pain Admitted From: Emergency Dept Plans for Post Hospital Care: Home History of present illness: Mr. Craig is a 60 year old male is admitted to [facility] through the emergency department presented with a chief complaint of chest pain. A history of CAD status post PTCA with 4 stents, diabetes mellitus, hypertension, dyslipidemia and nicotine dependency. This admission. Pain began the evening of presentation while at rest described as left sided sharp radiating into his left jaw with shortness of breath. Is reminiscent of previous episodes of angina pectoris as well as an event that led to cardiac arrest. He reported compliance with his prescribed cardiovascular medications including metoprolol lisinopril Plavix atorvastatin and aspirin. He called EMS to his home for transport it may provided aspirin and sublingual nitroglycerin in route to the emergency department. This provided no improvement in his symptoms. Pain upon arrival was related as being severe head and 8-9/10 severity. EKG showed no acute findings. Vital signs were stable. CBC differential was benign. Coagulation panel normal. BNP 108. Metabolic panel showed a glucose of 367 with osmolality 293. Sodium was 134 potassium 4.2. BUN /creatinine were normal. Troponin 0.08. Chest x-ray showed no acute or active cardiopulmonary process. Except for reports of continuing chest pain the patient demonstrated no outward effects of unstable ischemia. Intravenous nitroglycerin drip and intravenous heparin infusions were initiated and intravenous morphine administered. Specialists in cardiology and interventional cardiology were apprised of the patient's circumstances and special needs. Treatment and clinical evaluations will progress comprehensively. The patient was visited and interviewed and examined. Cumulative laboratory and radiographic data base was considered and discussed. Pertinent ancillary medical records including ECW and PCI documentation was reviewed and considered. Given the patient's presenting concerns, past medical history, clinical findings and symptoms, he is admitted at this time will undergo further evaluation and disposition. Orders were written as per the computerized physician sales order specialist system.......................................................................... .................... Consultative opinions will be sought as clinical circumstances justify. Pain management needs will be addressed. Laboratory and radiographic data base will be updated as appropriate. Studies include: CPK, PT/INR, APTT, Ddimer, cardiac injury panel, BNP, metabolic/ hematologic panel, magnesium, phosphorus, ionized jimmy, thyroid / lipid profile, A1c, C-peptide, CRP, sed rate, respiratory infection profile, respiratory virus panel, blood gas, UA, UDS, amylase, lipase, lactic acid, serologies, etc. Precautions: Aspiration, fall, delirium protocol/surveillance initiated. Telemetry with continuous hemodynamic monitoring and pulse oximetry initiated. Orthostatic vital signs obtained. Empiric antibiotic coverage: pending diagnostics/culture data. Special studies: CT/CTA chest, chest x-ray, telemetry, EKG, echocardiogram. Patient is anticipated to undergo left heart catheterization for definition of coronary anatomy and potential percutaneous intervention at the discretion of interventional cardiology team. Pulmonary toilet: Incentive spirometry, aerosol bronchodilator, mucolytic, antitussive, supplemental oxygen. Corticosteroid therapyPRN. CPAP/BiPAP supplemental oxygen deliveryPRN. Aerosol Mucomyst therapyPRN. Fluid and electrolyte repletion efforts will proceed. Careful attention to fluid balance and renal recovery will be emphasized. Avoidance of nephrotoxic exposure and adverse drug drug interaction in the setting of impaired renal function will be monitored closely. Acute coronary syndrome protocol/surveillance initiated. Aspirin, statin, azra, DOMONIQUE inhibitor initiated. Intravenous nitroglycerin drip. Intravenous heparin drip. As needed intravenous morphine. DVT and PUD prophylaxis initiated: PPI therapy, intermittent pneumatic cuffs/ TEDs. Early ambulation will be encouraged. Immunization updates recommended. Influenza and pneumococcal vaccinations as part of ongoing preventative healthcare recommendations strongly recommended. Smoking cessation counseling briefly addressed. Patient accepts nicotine substitution during this admission. Advanced care directive discussion briefly addressed. Patient does not declare any healthcare restrictions at this time. Cardiovascular risk appraisal and cardiovascular risk reduction efforts will be emphasized. Physical and occupational therapy may be consulted to evaluate patient's functional capacity and progress mobility if circumstances justify. Sliding scale/basal/nutritional insulin coverage, ADA dietary restraint and schedule an as-needed basis fingerstick glucose assessments were initiated. Nutrition/diabetes education counseling may be considered as circumstances justify. Outpatient medication schedules will be reviewed, confirmed and facilitated as appropriate. Reconciliation of home treatments including adjustments, substitutions and reintroduction into the treatment regimen will address necessary maintenance therapies for chronic pre-existing medical conditions. Plan of care has been reviewed and discussed in detail with the patient. Questions addressed. Hospital course dictated by clinical findings, treatment response and potential consultative interventions. Patient is at risk for further acute clinical decline and morbidity due to his presenting chief complaints and comorbid conditions. Condition is serious. Prognosis is guarded. CODE STATUS is full. Past Med Surg Social Fam HX - Past Medical History Source: old records reviewed Medical history: arthritis, asthma, cardiomyopathy, CHF, COPD, coronary artery disease, CVA, diabetes, GERD, hyperlipidemia, hypertension, myocardial infarction, peripheral artery disease, other (Hyperuricemia.Gout.) Psychiatric history: anxiety, depression, other - Past Surgical History Surgical History: angioplasty/stent, cholecystectomy, herniorrhaphy, knee replacement, orthopedic, other, other - Social History Smoking Status: Current every day smoker Smokeless Tobacco Status: No Alcohol use: none Drug use: none Occupational status: retired Current living situation: Home - Independent Activity Level: Mostly sedentary Recent Out of Country Travel Within the Last 8 Weeks: No Exposure or Possible Exposure to Illness During Travel: No - Family History Mother Living Status: Hx Family Cancer: Yes (lung cancer) Father Living Status: Hx Family Cancer: Yes (colon cancer) Internal Medicine - H&P: Meds Alprazolam [Xanax 0.5 MG Tablet] 0.5 mg PO BID 10/12/15 [History] Citalopram [CeleXA] 20 mg PO DAILY 10/12/15 [History] Gabapentin 600 mg PO TID 10/12/15 [History] Insulin Glargine [Lantus] 45 unit SQ DAILY 10/12/15 [History] Metformin HCl [Metformin HCl ER] 1,000 mg PO BID 10/12/15 [History] Oxycodone HCl 15 mg PO Q4H PRN 11/15/15 [History] Zolpidem [Ambien] 10 mg PO HS 11/15/15 [History] Albuterol Sulfate [Albuterol Inhaler] 2 puff IH Q4H PRN 03/18/16 [History] Allopurinol [Zyloprim 300 MG] 300 mg PO DAILY 03/18/16 [History] Aspirin 81 mg PO DAILY 03/18/16 [History] Atorvastatin Calcium [Lipitor] 80 mg PO DAILY 03/18/16 [History] Budesonide/Formoterol 160/4.5 [Symbicort 160/4.5] 2 puff IH BIDR 03/18/16 [ History] Clopidogrel [Plavix] 75 mg PO DAILY 03/18/16 [History] Metoprolol Succinate 100 mg PO DAILY 03/18/16 [History] Nitroglycerin [Nitrostat] 0.4 mg SL Q5M PRN 03/18/16 [History] Tadalafil [Cialis] 20 mg PO DAILY 05/12/16 [History] Allergies No Known Allergies Allergy (Verified 05/11/16 18:33) All Systems PM: A 10-system review of systems was performed and is negative for pertinent findings except as documented above in the HPI. - Constitutional Constitutional: as per HPI, malaise, no chills, no fever(s), no night sweats - EENT Eyes: as per HPI, no change in vision, no discharge, no pain, no photophobia Ears: as per HPI, no ear discharge, no ear pain, no tinnitus Nose, mouth and throat: as per HPI, no dysphagia, no nasal discharge, no neck pain, no sore throat - Cardiovascular Cardiovascular ROS IM: as per HPI, chest pain, dyspnea, no claudication, no diaphoresis, no lightheadedness, no palpitations, no syncope - Respiratory Respiratory: as per HPI, dyspnea, no cough, no wheezing, no excessive phlegm production - Gastrointestinal Gastrointestinal: as per HPI, no abdominal pain, no diarrhea, no hematemesis, no hematochezia, no melena, no nausea, no vomiting - Genitourinary Genitourinary ROS male: as per HPI - Musculoskeletal Musculoskeletal ROS IM: as per HPI, arthralgias, back pain, neck pain, other, no numbness, no tingling - Integumentary Integumentary IM: as per HPI, no rash, no unusual bruising - Neurological Neurological ROS: as per HPI, no confusion, no convulsions, no focal weakness, no numbness, no tingling, no tremor(s) - Psychiatric Psychiatric: as per HPI - Endocrine Endocrine IM: as per HPI - Hematologic/Lymphatic Hematologic/Lymphatic: as per HPI, no easy bruising - Allergic/Immunologic Allergic/Immunologic: as per HPI - Constitutional Vitals: Temp Pulse Resp BP Pulse Ox 97.9 F 79 17 152/100 99 05/11/16 23:37 05/11/16 23:37 05/11/16 23:37 05/11/16 23:37 05/11/16 23:37 Vital Signs Temp Pulse Resp BP Pulse Ox 05/11/16 23:37 97.9 F 79 17 152/100 99 05/11/16 23:02 16 126/92 05/11/16 21:20 82 128/89 98 05/11/16 19:14 96 05/11/16 19:12 95 18 146/84 95 05/11/16 18:34 98.7 F 91 16 158/84 96 Intake and Output 05/11/16 05/11/16 05/11/16 07:59 15:59 23:59 Intake Total 0 / 0 Balance 0 / 0 Intake: IV Fluids 0 / 0 Nitroglycerin 25 mg In 0 / 0 250 ml @ 5 MCG/MIN 3 mls/ hr IVC .Q24H [facility] Rx#: [id number] Other: Weight 89.4 kg Patient Weight 05/11/16 23:59 Weight 89.4 kg General appearance: Present: mild distress, A&O X 3, answers questions appropriately - Head Head exam: Present: atraumatic, normocephalic - Eye Eye exam: Present: EOMI, PERRL, conjuntiva pink, sclera anicteric Pupils: Present: normal accommodation, PERRL - ENT ENT exam: Present: mucous membranes moist, normal oropharynx - Neck Neck exam general surgery: Present: full ROM, supple, trachea midline. Absent: lymphadenopathy - Respiratory Respiratory exam: Present: chest wall tenderness, decreased breath sounds, CTAB. Absent: accessory muscle use, rales, rhonchi, wheezes - Cardiovascular Cardiovascular exam: Present: distant heart sounds, RRR, +S1, +S2. Absent: diastolic murmur, gallop, rubs, systolic murmur - GI/Abdominal GI/Abdominal exam: Present: normal bowel sounds, soft, no peritoneal signs. Absent: distended, tenderness - Extremities Exam Extremities exam: Present: full ROM, warm, radial pulses palpable and symetrical. Absent: calf tenderness, cyanotic, pedal edema - Neurological Exam Neurological exam: Present: alert, CN II-XII intact, oriented X3, no focal deficits. Absent: pronater drift, facial droop, speech deficit - Psychiatric Psychiatric exam: Present: anxious, normal affect - Skin Skin exam: Present: dry, intact, warm. Absent: petechiae, rash, urticaria, vesicles Internal Med - H&P Results - Labs CBC & Chem 7: 05/13/16 04:36 05/13/16 04:36 Labs: Short CBC 05/11/16 Range/Units 19:22 WBC 8.0 (4.3-11.1) K/mcL Hgb 12.3 L (12.9-16.9) g/dL Hct 37.0 L (37.5-50.1) % Plt Count 240 (140-400) K/mcL Neutrophils # 5.2 (1.6-8.9) K/mcL BMP 05/11/16 Range/Units 19:22 Sodium 134 L (136-145) mEq/L Potassium 4.2 (3.5-4.5) mEq/L Chloride 102 (98-109) mEq/L Carbon Dioxide 23 (19-29) mEq/L BUN 12 (8-26) mg/dL Creatinine 0.99 (0.72-1.25) mg/dL Glucose 367 H (70-99) mg/dL Calcium 9.2 (8.6-10.8) mg/dL Cardiac Enzymes 05/11/16 Range/Units 19:22 Troponin I 0.08 H* (0-0.03) ng/mL Abnormal lab results RBC 3.92 M/mcL (4.19-5.50) L 05/11/16 19:22 Hgb 12.3 g/dL (12.9-16.9) L 05/11/16 19:22 Hct 37.0 % (37.5-50.1) L 05/11/16 19:22 MPV 9.1 fL (9.4-12.4) L 05/11/16 19:22 Sodium 134 mEq/L (136-145) L 05/11/16 19:22 Glucose 367 mg/dL (70-99) H 05/11/16 19: Troponin I 0.08 ng/mL (0-0.03) H* 05/11/16 19: B-Natriuretic Peptide 108 pg/mL (0-100) H 05/11/16 19: Laboratory Last Values WBC 8.0 K/mcL (4.3-11.1) 05/11/16 19: RBC 3.92 M/mcL (4.19-5.50) L 05/11/16 19: Hgb 12.3 g/dL (12.9-16.9) L 05/11/16 19: Hct 37.0 % (37.5-50.1) L 05/11/16 19: MCV 94.4 fL (83.0-100.0) 05/11/16: MCH 31.4 pg (28.0-33.3) 05/11/16: MCHC 33.2 g/dL (31.6-35.5) 05/11/16: RDW 13.8 % (11.5-14.5) 05/11/16 19: Plt Count 240 K/mcL (140-400) 05/11/16 19: MPV 9.1 fL (9.4-12.4) L 05/11/16 19: Immature Gran % 0.4 % (0-4) 05/11/16: Seg Neutrophils % 64.6 % 05/11/16 19: Lymphocytes % 28.4 % 05/11/16 19: Monocytes % 4.2 % 05/11/16 19: Eosinophils % 1.9 % 05/11/16 19: Basophils % 0.5 % 05/11/16 19: Neutrophils # 5.2 K/mcL (1.6-8.9) 05/11/16 19: Lymphocytes # 2.3 K/mcL (0.6-4.6) 05/11/16 19: Monocytes # 0.3 K/mcL (0.0-1.3) 05/11/16 19: Eosinophils # 0.2 K/mcL (0.0-0.6) 05/11/16 19: Basophils # 0.0 K/mcL (0.0-0.2) 05/11/16 19:22 PT 10.4 Seconds (9.4-12.1) 05/11/16 19:22 INR 1.0 05/11/16 19:22 APTT 30.3 Seconds (26.0-36.0) 05/11/16 19:22 Sodium 134 mEq/L (136-145) L 05/11/16 19:22 Potassium 4.2 mEq/L (3.5-4.5) 05/11/16 19:22 Chloride 102 mEq/L (98-109) 05/11/16 19:22 Carbon Dioxide 23 mEq/L (19-29) 05/11/16 19:22 BUN 12 mg/dL (8-26) 05/11/16 19:22 Creatinine 0.99 mg/dL (0.72-1.25) 05/11/16 19:22 Est GFR ( Amer) > 60 (> 60) 05/11/16 19:22 Est GFR (Non-Af Amer) > 60 (> 60) 05/11/16 19:22 BUN/Creatinine Ratio 12 (6-26) 05/11/16 19:22 Glucose 367 mg/dL (70-99) H 05/11/16 19:22 Calculated Osmolality 293 (280-300) 05/11/16 19:22 Calcium 9.2 mg/dL (8.6-10.8) 05/11/16 19:22 Troponin I 0.08 ng/mL (0-0.03) H* 05/11/16 19:22 B-Natriuretic Peptide 108 pg/mL (0-100) H 05/11/16 19:22 - Impressions Chest X-Ray 05/11/16 18:49 IMPRESSION: 1. No acute cardiopulmonary disease. D/ / Puneet Sorenson MD / Puneet Sorenson MD Interpreting Provider: Puneet Sorenson MD - Attending Attestation My signature below is to certify that this patient is under my care and that I, or nurse practitioner, or a physician's daycare assistant, or resident physician working with me, has had a [id number] encounter with this patient. Allergies No Known Allergies Allergy (Verified 05/11/16 18:33) Home Medications Medication Instructions Recorded Confirmed Type Alprazolam [Xanax 0.5 MG Tablet] 0.5 mg PO BID 10/12/15 04/08/16 History Citalopram [CeleXA] 20 mg PO DAILY 10/12/15 04/08/16 History Gabapentin 600 mg PO TID 10/12/15 04/08/16 History Insulin Glargine [Lantus] 45 unit SQ DAILY 10/12/15 04/08/16 History Metformin HCl [Metformin HCl ER] 1,000 mg PO BID 10/12/15 04/08/16 History Oxycodone HCl 15 mg PO Q4H PRN 11/15/15 04/08/16 History Zolpidem [Ambien] 10 mg PO HS 11/15/15 04/08/16 History Albuterol Sulfate [Albuterol 2 puff IH Q4H PRN 03/18/16 04/08/16 History Inhaler] Allopurinol [Zyloprim 300 MG] 300 mg PO DAILY 03/18/16 04/08/16 History Aspirin 81 mg PO DAILY 03/18/16 04/08/16 History Atorvastatin Calcium [Lipitor] 80 mg PO DAILY 03/18/16 04/08/16 History Budesonide/Formoterol 160/4.5 2 puff IH BIDR 03/18/16 04/08/16 History [Symbicort 160/4.5] Clopidogrel [Plavix] 75 mg PO DAILY 03/18/16 04/08/16 History Lisinopril/Hydrochlorothiazide 1 each PO BID 03/18/16 04/08/16 History [Zestoretic 10-12.5 mg Tablet] Metoprolol Succinate 100 mg PO DAILY 03/18/16 04/08/16 History Nitroglycerin [Nitrostat] 0.4 mg SL Q5M PRN 03/18/16 04/08/16 History I & O 05/08/16 05/09/16 05/10/16 05/11/16 23:59 23:59 23:59 23:59 Intake Total 0 / 0 Balance 0 / 0 Weight 89.4 kg Intake: IV Fluids 0 / 0 Nitroglycerin 25 mg In 0 / 0 250 ml @ 5 MCG/MIN 3 mls/ hr IVC .Q24H [facility] Rx#: [id number] Medications Acetaminophen (Tylenol) 650 mg PO Q6HR PRN PRN Reason: Mild Pain (1-3) Stop: 11/10/16 23:27 Allopurinol (Zyloprim) 300 mg PO DAILY [facility] Stop: 11/11/16 09:01 Alprazolam (Xanax) 0.5 mg PO BID [facility] PRN Reason: Protocol Stop: 11/10/16 23:31 Aspirin (Aspirin) 81 mg PO DAILY [facility] Stop: 11/11/16 09:01 Budesonide/Formoterol Fumarate (Symbicort) 2 puff IH BIDR [facility] PRN Reason: Protocol Stop: 11/10/16 23:31 Citalopram Hydrobromide (Celexa) 20 mg PO DAILY [facility] Stop: 11/11/16 09:01 Clopidogrel Bisulfate (Plavix) 75 mg PO DAILY [facility] Stop: 11/11/16 09:01 Dextrose/Water (Dextrose 50% (Syg)) 25 ml IVP AD PRN PRN Reason: Hypoglycemia Stop: 11/10/16 23:27 Docusate Sodium (Colace) 100 mg PO BID PRN PRN Reason: Constipation Stop: 11/10/16 23:27 Glucagon (Glucagen) 1 mg IM ONCE PRN PRN Reason: Hypoglycemia Stop: 11/10/16 23:27 Glucose (Gluctose) 15 gm PO ONCE PRN PRN Reason: Hypoglycemia Stop: 11/10/16 23:27 Glucose (Gluctose) 30 gm PO ONCE PRN PRN Reason: Hypoglycemia Stop: 11/10/16 23:27 Lisinopril/HCTZ (Prinzide 10-12.5) 1 each PO BID [facility] Stop: 11/11/16 09:01 Heparin Sodium (Porcine) (Heparin) 4,000 unit IVP Q6HR PRN PRN Reason: SEE COMMENTS Stop: 11/10/16 21:51 Heparin Sodium (Porcine) (Heparin) 2,000 unit IVP Q6H PRN PRN Reason: SEE COMMENTS Stop: 11/10/16 21:51 Heparin Sodium (Porcine) (Heparin) 4,000 unit IVP Q6HR PRN PRN Reason: SEE COMMENTS Stop: 11/10/16 23:27 Heparin Sodium (Porcine) (Heparin) 4,000 unit IVP ONCE ONE Stop: 05/11/16 23:27 Heparin Sodium (Porcine) (Heparin) 2,000 unit IVP Q6H PRN PRN Reason: SEE COMMENTS Stop: 11/10/16 23:27 Nitroglycerin (Nitroglycerin) 25 mg in 250 mls @ 3 mls/hr IVC .Q24H [facility] PRN Reason: 5 MCG/MIN Stop: 11/10/16 20:46 Last Infusion: 05/11/16 23:28 Dose: 10 mcg/min, 6 mls/hr Heparin Sodium/Dextrose (Heparin 25,000 Unit/500 Ml D5w) 25,000 unit in 500 mls @ 19.99 mls/hr IVC .Q24H [facility]; 11.3 UNIT/KG/HR PRN Reason: Protocol Stop: 11/10/16 22:01 Last Admin: 05/11/16 22:45 Dose: 11.3 unit/kg/hr, 19.99 mls/hr Sodium Chloride (0.9 % Sodium Chloride) 1,000 mls @ 75 mls/hr IVC .[id number] [facility] Stop: 11/10/16 23:31 Dextrose (Dextrose 5%) 1,000 mls @ 100 mls/hr IV CONT PRN PRN Reason: HYPOGLYCEMIA Stop: 11/10/16 23:27 Heparin Sodium/Dextrose (Heparin 25,000 Unit/500 Ml D5w) 25,000 unit in 500 mls @ 21.456 mls/hr IVC .[id number] [facility]; 12 UNIT/KG/HR PRN Reason: Protocol Stop: 11/10/16 23:31 Nitroglycerin (Nitroglycerin) 25 mg in 250 mls @ 3 mls/hr IVC .Q24H [facility]; 5 MCG/ MIN PRN Reason: Protocol Stop: 11/10/16 23:31 Insulin Human Lispro (Humalog) 0 units SQ TIDAC [facility] PRN Reason: Protocol Stop: 11/11/16 07:31 Insulin Human Lispro (Humalog) 0 units SQ HS [facility] PRN Reason: Protocol Stop: 11/10/16 23:31 Lactobacillus Acidophilus/Rhamnosus (Culturelle) 1 each PO BID [facility] Stop: 11/11/16 09:01 Metoprolol Tartrate (Lopressor) 5 mg IVP Q6HR PRN PRN Reason: SEE COMMENTS Stop: 11/10/16 23:27 Morphine Sulfate (Morphine Sulfate) 4 mg IVP Q2H PRN PRN Reason: Chest Pain Stop: 11/10/16 23:40 Morphine Sulfate (Morphine Sulfate) 4 mg IVP Q2H PRN PRN Reason: Severe Pain (7-10) Stop: 11/10/16 23:27 Naloxone HCl (Narcan) 0.4 mg IVP Q2MIN PRN PRN Reason: Opioid Reversal Stop: 11/10/16 23:27 Nicotine (Nicoderm) 21 mg TD DAILY [facility] PRN Reason: Protocol Stop: 11/10/16 23:31 Nitroglycerin (Nitroglycerin) 0.4 mg SL Q5M PRN PRN Reason: Chest Pain Stop: 11/10/16 23:23 Nitroglycerin (Nitroglycerin) 0.4 mg SL Q5MIN PRN PRN Reason: Chest Pain Stop: 11/10/16 23:27 Non-Formulary Medication (Atorvastatin Calcium [Lipitor]) 80 mg PO DAILY [facility] Stop: 11/10/16 23:31 Non-Formulary Medication (Gabapentin [Gabapentin]) 600 mg PO TID [facility] Stop: 11/10/16 23:31 Non-Formulary Medication (Insulin Glargine [Lantus]) 45 unit SQ DAILY [facility] Stop: 11/10/16 23:31 Non-Formulary Medication (Metoprolol Succinate [Metoprolol Succinate]) 100 mg PO DAILY [facility] Stop: 11/11/16 09:01 Oxycodone HCl (Roxicodone) 15 mg PO Q4H PRN PRN Reason: Pain Stop: 11/10/16 23:23 Pantoprazole Sodium (Protonix) 40 mg IVP DAILY [facility] Stop: 11/11/16 09:01 Promethazine HCl (Phenergan) 12.5 mg IVP Q6HR PRN PRN Reason: Nausea And Vomiting Stop: 11/10/16 23:27 Zolpidem Tartrate (Ambien) 10 mg PO HS [facility] PRN Reason: Protocol Stop: 11/10/16 23:31 Discontinued Medications Heparin Sodium (Porcine) (Heparin) 4,000 unit IVP ONCE ONE Stop: 05/11/16 21:51 Last Admin: 05/11/16 22:44 Dose: 4,000 unit Hydromorphone HCl (Dilaudid) 1 mg IVP ONCE ONE Stop: 05/11/16 20:17 Last Admin: 05/11/16 20:28 Dose: 1 mg Hydromorphone HCl (Dilaudid) 1 mg IVP ONCE ONE Stop: 05/11/16 21:31 Last Admin: 05/11/16 21:47 Dose: 1 mg Hydromorphone HCl (Dilaudid) 1 mg IVP ONCE ONE Stop: 05/11/16 23:05 Last Admin: 05/11/16 23:13 Dose: 1 mg Morphine Sulfate (Morphine Sulfate) 4 mg IVP ONCE ONE Stop: 05/11/16 19:15 Last Admin: 05/11/16 21:21 Dose: Nitroglycerin (Nitroglycerin) 0.4 mg SL Q5MIN ONE Stop: 05/11/16 18:50 Last Admin: 05/11/16 19:09 Dose: 0.4 mg Ondansetron HCl (Zofran) 4 mg IVP ONCE ONE PRN Reason: Protocol Stop: 05/11/16 20:50 Last Admin: 05/11/16 21:12 Dose: 4 mg Nursing Notes 05/11/16 21:26 Nurse Note by Alysa Bullock patients family came to nurses station and voiced concern about the patients pain control family states he has been on the nitro drip and having to be sent to cath. and brayan and patient requested to be transfered to [facility] dr. murillo and dr. ross notified. dr. ross at bedside to speak to patient at this time. Initialized on 05/11/16 21:26 - END OF NOTE 05/11/16 20:47 Transport Report by Cyrus Cole Date: 05/11/16 Transport Method: Stretcher No Known Allergies Allergy (Verified 05/11/16 18:33) Resuscitation Status 05/11/16 18:49 ECG 12 lead ECG [ECG] Stat Mode Of Transportation: Stretcher Reason For Exam: chest pain Exam Performed At:: [facility] Oxygen: 2 Mental Status: Fall Risk: Isolation: Nurse Required for Transport: No ___ Yes Limb Restrictions: No ___ Yes Behavioral issue/Risk for Elopement: No ___ Yes Telemetry Room Notification: Destination: MRI XRAY STRESS ULTRASOUND CT DIALYSIS ENDO OTHER: Depart Time: Nurse: Transporter: Arrive Time: Received by: ___ Return Time: Nurse: Transporter: ] Initialized on 05/11/16 20:47 - END OF NOTE Orders 05/11/16 18:49 12 lead ECG assessment [RC] NOW Cardiac monitoring [RC] .ONCE Obtain Old EKG [RC] .ONCE Saline lock [RC] .ONCE Supplemental oxygen titration [RC] .ONCE Physician Instructions: Vital Signs Assessment [RC] PROTOCOL XR chest 1V portable [XR] Stat Mode Of Transportation: Stretcher Reason For Exam: chest pain Exam Performed At:: [facility] Additional Notes/Special Instructions: 21 Nitroglycerin 0.4 mg SL Q5MIN ONE ECG 12 lead ECG [ECG] Stat Mode Of Transportation: Stretcher Reason For Exam: chest pain Exam Performed At:: [facility] 05/11/16 19:14 Morphine [Morphine Sulfate] 4 mg IVP ONCE ONE 05/11/16 19:22 Activated Partial Thrombo Time [COAG] Stat Comment: Specimen: Send someone from the department to collect B-Type Natriuretic Peptide Stat Comment: Specimen: Send someone from the department to collect Basic Metabolic Panel Stat Comment: Specimen: Send someone from the department to collect Complete Blood Count [HEME] Stat Comment: Specimen: Send someone from the department to collect Hold Sample For Possible T&C [BBK] Stat BBK Wristband Number: [id number] Prothrombin Time INR [COAG] Stat Comment: Specimen: Send someone from the department to collect Troponin I Stat Comment: Specimen: Send someone from the department to collect 05/11/16 20:[address] Stat Comment: Reason for Visit: ACS r/o HYDROmorphone (PF) [Dilaudid] 1 mg IVP ONCE ONE 05/11/16 20:45 Nitroglycerin 25 mg in 250 ml IVC 5 mcg/min 05/11/16 20:49 Ondansetron [Zofran] 4 mg IVP ONCE ONE 05/11/16 21:30 HYDROmorphone (PF) [Dilaudid] 1 mg IVP ONCE ONE 05/11/16 21:50 Heparin 2,000 unit IVP Q6H PRN Heparin 4,000 unit IVP ONCE ONE Heparin 4,000 unit IVP Q6HR PRN 05/11/16 21:51 Assess for bleeding [RC] .PER UNIT PROTOCOL Assess neurologic status [RC] q4h Communication order [RC] .PRN Comment: Communication order [RC] CONT Comment: Notify provider [RC] .PRN Physician Instructions: 05/11/16 22:00 Heparin 25,000 UNIT/500 ML D5W 25,000 unit in 500 ml IVC 11.3 unit/kg/hr 05/11/16 23:04 HYDROmorphone (PF) [Dilaudid] 1 mg IVP ONCE ONE 05/11/16 23:22 Nitroglycerin 0.4 mg SL Q5M PRN OxyCODONE Immed Rel [Roxicodone] 15 mg PO Q4H PRN 05/11/16 23:26 Cardiac monitoring [RC] .ONCE Continuous pulse oximetry [RC] .ONCE Comment: Glucose, blood poc measurement [RC] ACHS Hypoglycemia Treatment Orders [RC] .once Notify provider [RC] once Physician Instructions: Oxygen via nasal cannula Nasal Cannula 2 lpm Comment: Peripheral IV [RC] CONT Placement to Observation Routine Physician Instructions: Reason for Visit: unstable angina pectoris/NSTEMI Is VTE Prophylaxis Indicated?: Yes Vital Signs Assessment [RC] Q4H Consult to Cardiac Rehabilitation-Phase1 [CONS] Routine Comment: Reason for Consult: AMI Call Completed: Yes Consult to Cardiology [CONS] Routine Consulting Provider: Cardiology Thurman Comment: Reason for Consult: Unstable angina pectoris/non-ST elevation myocardial infarction patient well defined CAD. Please evaluate and advise. Time Notified: 23:33 Call Completed: Yes Consult to Clinical Research Physician [CONS] Routine Comment: Consult to Nurse Navigator [CONS] Routine Comment: Urinalysis reflex Microscopic [URIN] Routine Specimen: Send someone from the department to collect Comment: @ 100 MLS/HR [prn Hypoglycemia] D5% in Water [Dextrose 5%] 1,000 ml IV CONT Acetaminophen [Tylenol] 650 mg PO Q6HR PRN Dextrose 50 % in Water (Syg) [Dextrose 50% (Syg)] 25 ml IVP AD PRN Dextrose Gel [Gluctose] 15 gm PO ONCE PRN Dextrose Gel [Gluctose] 30 gm PO ONCE PRN Docusate [Colace] 100 mg PO BID PRN Glucagon, Human Recombinant [GlucaGen] 1 mg IM ONCE PRN Heparin 2,000 unit IVP Q6H PRN Heparin 4,000 unit IVP ONCE ONE Heparin 4,000 unit IVP Q6HR PRN Metoprolol [Lopressor] 5 mg IVP Q6HR PRN Morphine [Morphine Sulfate] 4 mg IVP Q2H PRN Naloxone [Narcan] 0.4 mg IVP Q2MIN PRN Nitroglycerin 0.4 mg SL Q5MIN PRN Promethazine [Phenergan] 12.5 mg IVP Q6HR PRN Resuscitation Status: Active [RES] Routine Resuscitation Status: Full Code Comment: EV echocardiogram Routine Mode Of Transportation: Stretcher Reason For Exam: ACS Exam Performed At:: [facility] 05/11/16 23:27 Bed rest [RC] .CONT Physician Instructions: Bed rest w/bathroom privileges [RC] .PRN Cardiac Monitoring Med/Surg [RC] .CONT Telemetry Reason: ACS/CP Continuous pulse oximetry [RC] CONT Comment: Measure intake and output [RC] QSHIFT Measure weight [RC] DAILY RT has an order or consult [RC] NOW 05/11/16 23:28 Oxygen via nasal cannula Nasal Cannula 2 lpm Comment: Titrate O2 to main O2 sat greater than: 92% 05/11/16 23:30 Troponin I Q6H Specimen: Send someone from the department to collect Comment: *Low Dose Heparin @ 12 UNIT/KG/HR [Titration] Heparin 25,000 UNIT/500 ML D5W 25, 000 unit in 500 ml IVC 12 unit/kg/hr 0.9 % Sodium Chloride 1,000 ml IVC 75 mls/hr Alprazolam [Xanax] 0.5 mg PO BID Atorvastatin Calcium [Lipitor] 80 mg PO DAILY How will this medication be supplied?: Pharmacy to Subsitute Budesonide/Formoterol 160/4.5 [Symbicort] 2 puff IH BIDR Gabapentin [Gabapentin] 600 mg PO TID How will this medication be supplied?: Pharmacy to Subsitute Insulin Glargine [Lantus] 45 unit SQ DAILY How will this medication be supplied?: Pharmacy to Subsitute Insulin LISPRO [HumaLOG] See Protocol SQ HS Nicotine Patch [Nicoderm] 21 mg TD DAILY Nitroglycerin 25 mg in 250 ml IVC 5 mcg/min Chest pain level of___: 0 Zolpidem [Ambien] 10 mg PO HS 05/11/16 23:33 Communication order [RC] PRN Comment: 05/11/16 23:35 12 lead ECG assessment [RC] NOW 05/11/16 23:39 Morphine [Morphine Sulfate] 4 mg IVP Q2H PRN 05/11/16 23:45 Heparin Low Dose Infusion PROTOCOL Comment: 05/12/16 00:01 NPO Except Medications Diet Diet Modifications: ice chips....sips of water w/meds... 05/12/16 04:00 Activated Partial Thrombo Time [COAG] AM 0400 Specimen: Send someone from the department to collect Comment: B-Type Natriuretic Peptide AM 0400 Specimen: Send someone from the department to collect Comment: Complete Blood Count w/o Diff [HEME] AM 0400 Specimen: Send someone from the department to collect Comment: Comprehensive Metabolic Panel AM 0400 Specimen: Send someone from the department to collect Comment: Hgb A1C AM 0400 Specimen: Send someone from the department to collect Comment: Lipid Panel AM 0400 Specimen: Send someone from the department to collect Comment: Magnesium AM 0400 Specimen: Send someone from the department to collect Comment: Phosphorous AM 0400 Specimen: Send someone from the department to collect Comment: Prothrombin Time INR [COAG] AM 0400 Specimen: Send someone from the department to collect Comment: Thyroid Stimulating Hormone AM 0400 Specimen: Send someone from the department to collect Comment: 05/12/16 05:30 Troponin I Q6H Specimen: Send someone from the department to collect Comment: 05/12/16 07:00 ECG 12 lead ECG [ECG] Routine Mode Of Transportation: Stretcher Reason For Exam: Myocardial Infarction Exam Performed At:: [facility] 05/12/16 07:30 Insulin LISPRO [HumaLOG] See Protocol SQ TIDAC 05/12/16 09:00 Allopurinol [Zyloprim] 300 mg PO DAILY Aspirin 81 mg PO DAILY Citalopram [CeleXA] 20 mg PO DAILY Clopidogrel [Plavix] 75 mg PO DAILY Lactobacillus [Culturelle] 1 each PO BID Lisinopril/Hydrochlorothiazide [Lisinopril-Hctz 10-12.5 mg Tab] 1 each PO BID Metoprolol Succinate [Metoprolol Succinate] 100 mg PO DAILY How will this medication be supplied?: Pharmacy to Subsitute Pantoprazole [Protonix] 40 mg IVP DAILY 05/12/16 11:30 Troponin I Q6H Specimen: Send someone from the department to collect Comment: 05/13/16 04:00 Activated Partial Thrombo Time [COAG] AM 0400 Specimen: Send someone from the department to collect Comment: Complete Blood Count w/o Diff [HEME] AM 0400 Specimen: Send someone from the department to collect Comment: Prothrombin Time INR [COAG] AM 0400 Specimen: Send someone from the department to collect Comment: 05/14/16 04:00 Activated Partial Thrombo Time [COAG] AM 0400 Specimen: Send someone from the department to collect Comment: Complete Blood Count w/o Diff [HEME] AM 0400 Specimen: Send someone from the department to collect Comment: Prothrombin Time INR [COAG] AM 0400 Specimen: Send someone from the department to collect Comment: 05/15/16 04:00 Activated Partial Thrombo Time [COAG] AM 0400 Specimen: Send someone from the department to collect Comment: Complete Blood Count w/o Diff [HEME] AM 0400 Specimen: Send someone from the department to collect Comment: Prothrombin Time INR [COAG] AM 0400 Specimen: Send someone from the department to collect Comment: Patient Problems (Last Updated 05/11/16 @ 23:16 by Brayan Ross DO) Non-STEMI (non-ST elevated myocardial infarction) (Acute) Vital Signs Temp Pulse Resp BP Pulse Ox 05/11/16 23:37 97.9 F 79 17 152/100 99 05/11/16 23:02 16 126/92 05/11/16 21:20 82 128/89 98 05/11/16 19:14 96 05/11/16 19:12 95 18 146/84 95 05/11/16 18:34 98.7 F 91 16 158/84 96 Laboratory Results 05/11/16 05/11/16 05/11/16 Range/Units 19:22 19:22 19:22 WBC 8.0 (4.3-11.1) K/mcL RBC 3.92 L (4.19-5.50) M/mcL Hgb 12.3 L (12.9-16.9) g/dL Hct 37.0 L (37.5-50.1) % MCV 94.4 (83.0-100.0) fL MCH 31.4 (28.0-33.3) pg MCHC 33.2 (31.6-35.5) g/dL RDW 13.8 (11.5-14.5) % Plt Count 240 (140-400) K/mcL MPV 9.1 L (9.4-12.4) fL Immature Gran % 0.4 (0-4) % Seg Neutrophils % 64.6 % Lymphocytes % 28.4 % Monocytes % 4.2 % Eosinophils % 1.9 % Basophils % 0.5 % Neutrophils # 5.2 (1.6-8.9) K/mcL Lymphocytes # 2.3 (0.6-4.6) K/mcL Monocytes # 0.3 (0.0-1.3) K/mcL Eosinophils # 0.2 (0.0-0.6) K/mcL Basophils # 0.0 (0.0-0.2) K/mcL PT 10.4 (9.4-12.1) Seconds INR 1.0 APTT 30.3 (26.0-36.0) Seconds Sodium (136-145) mEq/L Potassium (3.5-4.5) mEq/L Chloride (98-109) mEq/L Carbon Dioxide (19-29) mEq/L BUN (8-26) mg/dL Creatinine (0.72-1.25) mg/dL Est GFR ( Amer) (> 60) Est GFR (Non-Af Amer) (> 60) BUN/Creatinine Ratio (6-26) Glucose (70-99) mg/dL Calculated Osmolality (280-300) Calcium (8.6-10.8) mg/dL Troponin I (0-0.03) ng/mL B-Natriuretic Peptide 108 H (0-100) pg/mL 05/11/16 05/11/16 Range/Units 19:22 19:22 WBC (4.3-11.1) K/mcL RBC (4.19-5.50) M/mcL Hgb (12.9-16.9) g/dL Hct (37.5-50.1) % MCV (83.0-100.0) fL MCH (28.0-33.3) pg MCHC (31.6-35.5) g/dL RDW (11.5-14.5) % Plt Count (140-400) K/mcL MPV (9.4-12.4) fL Immature Gran % (0-4) % Seg Neutrophils % % Lymphocytes % % Monocytes % % Eosinophils % % Basophils % % Neutrophils # (1.6-8.9) K/mcL Lymphocytes # (0.6-4.6) K/mcL Monocytes # (0.0-1.3) K/mcL Eosinophils # (0.0-0.6) K/mcL Basophils # (0.0-0.2) K/mcL PT (9.4-12.1) Seconds INR APTT (26.0-36.0) Seconds Sodium 134 L (136-145) mEq/L Potassium 4.2 (3.5-4.5) mEq/L Chloride 102 (98-109) mEq/L Carbon Dioxide 23 (19-29) mEq/L BUN 12 (8-26) mg/dL Creatinine 0.99 (0.72-1.25) mg/dL Est GFR ( Amer) > 60 (> 60) Est GFR (Non-Af Amer) > 60 (> 60) BUN/Creatinine Ratio 12 (6-26) Glucose 367 H (70-99) mg/dL Calculated Osmolality 293 (280-300) Calcium 9.2 (8.6-10.8) mg/dL Troponin I 0.08 H* (0-0.03) ng/mL B-Natriuretic Peptide (0-100) pg/mL Assessments/Treatments 12 lead ECG assessment Start: 05/11/16 18: 33 Freq: Status: Complete Document 05/11/16 18:34 TL (Rec: 05/11/16 18:44 [id number] EKG Time EKG Completed 18:34 EKG performed by Adrian LEZAMA EKG shown to and signed by Dr. Barba Cardiac monitoring Start: 05/11/16 18: 33 Freq: Status: Complete Document 05/11/16 18:38 [facility] (Rec: 05/11/16 18:43 [id number] Cardiac Monitoring Heart Rate 89 Monitoring Method Telemetry Rhythm Sinus Rhythm Monitor Number ED 21 Critical Value Reporting Start: 05/11/16 20: 01 Freq: Status: Complete Document 05/11/16 20:01 AMW (Rec: 05/11/16 20:02 AMW [id number]) Critical Values Reporting Test(s) and Results Troponin 0.08 Time Results Received 20:01 Lab Results Repeated Back Yes Provider Notified Yes Time Provider Contacted 20:[address] Murillo Time Provider Responded 20:02 Number of Attempts to Reach Provider 1 New Orders Received No ED Chest Pain Assessment Start: 05/11/16 18: 33 Freq: Status: Complete Document 05/11/16 18:38 TL (Rec: 05/11/16 18:43 [id number] Chest Pain Duration Intermittent Onset couple hours ago Location Substernal Severity Moderate Radiation Jaw/Teeth Improves With Nothing Worsens With Nothing Treatment Prior To Arrival Aspirin Nitroglycerin Level Of Consciousness Awake Alert Appropriate Follows Commands Patient Orientation Person Place Name Age Date of Left Jaw Pain Description Sharp Intensity 8 Scale Used Numeric (1 - 10) Midsternal Chest Pain Description Sharp Intensity 8 Scale Used Numeric (1 - 10) Respiratory Depth Normal Respiratory Effort Spontaneous Non-Labored Respiratory Pattern Regular Oxygen Delivery Method Room Air Anterior & Posterior Bilateral Throughout Breath Sounds Clear Nausea/Vomiting Presence None Hx SD Yes Hx Angina Yes Hx Coronary Stent Yes Hx Diabetes Mellitus Type 2 Yes ED Comment Patient states he developed chest pain this morning that resolved. States he was driving and the chest pain suddenly came back. Patients daughter states he called her and was confused. Patient is now A&O x 3, denies feeling confused or disoriented. ED Discharge Assessment Start: 05/11/16 18: 33 Freq: Status: Complete Document 05/11/16 23:02 [id number] (Rec: 05/11/16 23:05 [id number]) ED Discharge Assessment ED Discharge Disposition Admitted ED Condition on Discharge Serious Med Rec/Patient Pharmacy Completed? No Admitted to 2NE Bed assigned [id number] Transported by nurse hydraulic technician Transported with IV continuing medication Report given to Nurse Care transferred to (name/credentials) Marga IBANEZ Information relayed patient's care treatments medications given condition recent/anticipated changes Clinical Documentation Summary Provided Yes Pain Scale 8 Pain Scale Used Standard (1-10) Blood Pressure (mm Hg) 126/92 Heart rate 79 Respiratory Rate (breaths/min) 16 Oxygen Delivery Room Air Oxygen Saturation 97 Critical Care Minutes 0 Measure weight Start: 05/11/16 23: 37 Freq: Status: Active Document 05/11/16 23:37 [facility] (Rec: 05/11/16 23:40 [facility] [id number]) Height and Weight Height 1.82 m Weight 89.4 kg Weight Measurement Method Built in [facility] Body Mass Index (BMI) 27.07 BMI Classification Overweight Obtain Old EKG Start: 05/11/16 18: 49 Freq: .ONCE Status: Complete Document 05/11/16 18:51 [facility] (Rec: 05/11/16 18:51 [id number] Patient Rounding Start: 05/11/16 18: 33 Freq: Q30M Status: Active Document 05/11/16 18:38 [facility] (Rec: 05/11/16 18:43 [facility] [id number]) Patient Rounding Safety Call Light Within Reach Bed Position Low Bed Brake On Side Rails Up X2 Are the Floors Free From Trip Hazards? Yes Is the Room Free From Clutter? Yes Rounding Completed? Yes Patient Rounding Updated patient/family on Plan of Care Checked for Patient Positioning Checked Patient Pain Level Patient Awake Document 05/11/16 19:12 TL (Rec: 05/11/16 19:13 [id number] Patient Rounding Safety Call Light Within Reach Bed Position Low Bed Brake On Side Rails Up X2 Are the Floors Free From Trip Hazards? Yes Is the Room Free From Clutter? Yes Rounding Completed? Yes Patient Rounding Updated patient/family on Plan of Care Checked for Patient Positioning Checked Patient Pain Level Patient Awake Patient Rounding Start: 05/11/16 23: 37 Freq: Q1H Status: Active Document 05/11/16 23:37 [facility] (Rec: 05/11/16 23:40 [facility] [id number]) Hourly Rounding Hourly Rounding Checked for Patient Positioning Patient Personal Items Placed Within Reach Hourly Rounding Completed Yes Patient Sleeping Is family present? Yes Safety Call Light Within Reach Bed Position Low Phone Within Reach Side Rails Up X2 Are the Floors Free From Trip Hazards? Yes Is the Room Free From Clutter? Yes Turn and Postion Bedrest No Turn Q 2HR No Patient Position Back Saline lock insertion/management Start: 05/11/16 18: 33 Freq: Status: Complete Document 05/11/16 18:43 [facility] (Rec: 05/11/16 18:44 [facility] [id number]) IV Insertion/Site Assessment IV Attempt 2 Successful Successful Blood drawn and sent to Lab No Comment Inserted per Tonny Ortega RN Left Hand IV Established [employer] No Reason for IV Insertion Provide Access for IV Medication(s) Provide Access for Emergency IV Catheter Type Peripheral IV Gauge (gauge) 20 Site Observation Patent Dressing Applied Transparent Dressing Dry/Intact Patient Tolerance Tolerated Well Saline lock insertion/management Start: 05/11/16 18: 49 Freq: .ONCE Status: Complete Document 05/11/16 19:28 [facility] (Rec: 05/11/16 21:20 [facility] [id number]) IV Insertion/Site Assessment IV Attempt 1 Successful Successful Blood drawn and sent to Lab Yes Comment per MARCELLE Godwin Right Wrist IV Established [employer] No Date of Insertion 05/11/16 Time of Insertion 19:28 Reason for IV Insertion Replace Lost Fluids Maintain Electrolyte Balance Provide Access for IV Medication(s) Provide Access for Blood IV Catheter Type Peripheral IV Gauge (gauge) 18 Site Observation Patent Dressing Applied Window Dressing Dry/Intact Patient Tolerance Tolerated Well Supplemental oxygen titration Start: 05/11/16 18: 49 Freq: .ONCE Status: Complete Document 05/11/16 19:14 [facility] (Rec: 05/11/16 19:15 [facility] [id number]) Oxygen Adminstration Oxygen Saturation (95-100 %) 96 Oxygen Delivery Method Nasal Cannula Flow Rate 2 Triage Start: 05/11/16 18: 33 Freq: Status: Complete Document 05/11/16 18:34 [facility] (Rec: 05/11/16 18:38 [facility] [id number]) Triage Chief Complaint triage ED Chest Pain Patient Stated Complaint chest pain that radiates to left jaw BLADIMIR 2 Description of Symptoms Patient with c/o chest pain that radiates to left jaw. States it started a couple hours ago. General Appearance alert Work Related Injury? No Mode of arrival EMS Arrival via EMS [facility] Source patient Temperature (97.6 F-99.6 F) 98.7 F Temperature Source Oral Pulse Rate (beats/min) 91 Respiratory Rate (breaths/min) 16 Blood Pressure (mm Hg) 158/84 O2 Sat by Pulse Oximetry (95-100 %) 96 Oxygen Delivery Room Air Height 1.8 m Weight 88.451 kg Weight Measurement Method Stated by Patient Pain Scale 8 Pain Scale Used Standard (1-10) Medical history COPD diabetes hypertension myocardial infarction Male surgical history other Additional surgical history PMH 4 heart stents B/L knee surgeries Psychiatric history anxiety Smoking Status Current every day smoker Smokeless Tobacco Status No Alcohol Use none Drug Use none Patient resides with/at Children Safety Concerns Feels Safe At This Time Do you currently feel hopless, have No thoughts of self harm, or thoughts of harming others History of fall in last 14 days? No Influenza vaccine up to date Yes Pneumonia vaccine up to date Yes Tetanus UTD yes Coma Scale Eye Opening Spontaneous Coma Scale Motor Response Obeys Commands Coma Scale Verbal Response Oriented Coma Scale Total 15 Father Family Member Living Status Hx Family Cancer Yes: colon cancer Mother Family Member Living Status Hx Family Cancer Yes: lung cancer Vital Signs Assessment Start: 05/11/16 18: 49 Freq: PROTOCOL Status: Active Document 05/11/16 19:12 [facility] (Rec: 05/11/16 19:13 [facility] [id number]) ED Vital Signs Pain Reported Pain Reported Pain Scale 8 Pain Scale Used Standard (1-10) Blood Pressure (mm Hg) 146/84 Blood Pressure Location Left Arm Source Automatic Cuff Pulse Rate (beats/min) 95 Rhythm Regular Strength Normal Respiratory Rate (breaths/min) 18 Depth Normal Effort Spontaneous Non-Labored Pattern Regular Pulse Oximetry (95-100 %) 95 Oxygen Delivery Room Air Document 05/11/16 21:20 [facility] (Rec: 05/11/16 21:21 [facility] [id number]) ED Vital Signs Pain Reported Pain Reported Blood Pressure (mm Hg) 128/89 Blood Pressure Location Left Arm Source Automatic Cuff Pulse Rate (beats/min) 82 Pulse Oximetry (95-100 %) 98 Oxygen Delivery Nasal Cannula Oxygen Flow Rate (LPM) 2 Vital Signs Assessment Start: 05/11/16 23: 37 Freq: Q4H Status: Active Document 05/11/16 23:37 [facility] (Rec: 05/11/16 23:40 [facility] [id number]) Vital Signs with MEWS Temperature (97.6 F-99.6 F) 97.9 F Temperature Source Oral Pulse Rate (beats/min) 79 Respiratory Rate (breaths/min) 17 Pulse Oximetry (95-100 %) 99 Oxygen Delivery Nasal Cannula Oxygen Flow Rate (LPM) 2 Blood Pressure (mm Hg) 152/100 Blood Pressure Location Right Arm Source Automatic Cuff Position HOB Elevated Discharge Information ED Provider: Patrice Murillo Status: Departed Time Seen by Provider: 05/11/16 18:48 Condition: Good Triaged At: 05/11/16 18:34 Other ED Providers: Shannon Mattson,Tj Adams,Gibran Tyson,Raphael Barnard,Sonia Lemus,Kel Berger,Rafael Ignacio,Ted Camacho M.D.,Wallace Phillips,Conchita Phillips,Kel Augustine,Sebastien Brody,Casey Doll,Hung Fox,Marleny Fischer,Pravin Bryant,Wallace Pereira,Rudolph Jauregui,Kathy Covarrubias,Romina Martinez Emergency Discharge Date/Time: 05/11/16 23:13 Emergency Discharge Disposition: Admitted As Inpatient Clinical Impression Non-STEMI (non-ST elevated myocardial infarction) Emergency Discharge Comment: Admit Intervention Last Done ED Chest Pain Assessment 05/11/16 18:38 Query Result Chest Pain Duration Intermittent Chest Pain Onset couple hours ago Chest Pain Location Substernal Chest Pain Severity Moderate Chest Pain Radiation Jaw/Teeth Chest Pain Improves With Nothing Chest Pain Worsens With Nothing Chest Pain Treatments Prior to Arrival Aspirin Nitroglycerin Level Of Consciousness Awake Alert Appropriate Follows Commands Patient Orientation Person Place Name Age Date of Midsternal Chest -Pain Description Sharp -Pain Intensity 8 -Pain Scale Used Numeric (1 - 10) Left Jaw -Pain Description Sharp -Pain Intensity 8 -Pain Scale Used Numeric (1 - 10) Respiratory Depth Normal Respiratory Effort Spontaneous Non-Labored Respiratory Pattern Regular Oxygen Delivery Method Room Air Anterior & Posterior Bilateral Throughout -Breath Sounds Clear Nausea/Vomiting Presence None Hx Myocardial Infarction Yes Hx Angina Yes Hx Coronary Stent Yes Hx Diabetes Mellitus Type 2 Yes ED Comment Patient states he developed chest pain this morning that resolved. States he was driving and the chest pain suddenly came back. Patients daughter states he called her and was confused. Patient is now A&O x 3, denies feeling confused or disoriented. ED Discharge Assessment 05/11/16 23:02 Query Result ED Discharge Disposition Admitted ED Condition on Discharge Serious Med Rec/Patient Phamracy completed? No ED Admit to 2NE Bed assigned [id number] Transported by nurse hydraulic technician Transported with IV continuing medication Report given to Nurse Care transferred to Marga RN Information relayed patient's care treatments medications given condition recent/anticipated change Clinical Documentation Summary Provided Yes Severity scale (1-10) 8 Pain Scale Used Standard (1-10) Blood Pressure 126/92 Heart rate 79 Respiratory Rate 16 Oxygen Delivery Room Air Pulse Oximetry Reading 97 Critical Care Minutes 0 Observation Discharge Date/Time: Observation Discharge Disposition: Observation Discharge Comment: Instructions: Stand-Alone Forms: Prescriptions: Visit Report - Forms: - Referrals: Radiology Results Chest X-Ray 05/11/16 18:49
[2016-05-12] MEDS: Insulin LISPRO 300 UNITS/3 ML VIAL SQ SCH ×5 (00:41→20:49)
[2016-05-12] MEDS: Nicotine 21 MG PATCH.TD24 TD SCH ×2 (00:42→09:00)
[2016-05-12] MEDS: Gabapentin 300 MG CAPSULE PO SCH ×4 (00:42→20:50)
[2016-05-12] MEDS: ALPRAZolam 0.5 MG TABLET PO SCH ×3 (00:43→20:51)
[2016-05-12 00:44] LABS: Hematocrit 36.3 % (37.5-50.1); Hemoglobin 12.1 g/dL (12.9-16.9); Mean Corpuscular HGB Conc 33.3 g/dL (31.6-35.5); Mean Corpuscular Hemoglobin 31.6 pg (28.0-33.3); Mean Corpuscular Volume 94.8 fL (83.0-100.0); Mean Platelet Volume 8.8 fL (9.4-12.4); Platelet Count 226 K/mcL (140-400); Red Blood Count 3.83 M/mcL (4.19-5.50); Red Cell Distribution Width 13.8 % (11.5-14.5)
[2016-05-12 00:49] LABS: Prothrombin Time 10.7 Seconds (9.4-12.1)
[2016-05-12 00:52] LABS: Activated Partial Thrombo Time 48.6 Seconds (26.0-36.0)
[2016-05-12] MEDS: 0.9 % Sodium Chloride 1,000 ML IVC SCH (00:55)
[2016-05-12 00:58] LABS: Hemoglobin A1C 11.6 %
[2016-05-12 01:02] LABS: Alanine Aminotransferase 26 Units/L (0-55); Albumin 2.9 g/dL (3.5-5.0); Albumin/Globulin Ratio 0.9 (1.1-2.2); Alkaline Phosphatase 161 Units/L (38-126); Aspartate Amino Transferase 14 Units/L (5-34); BUN/Creatinine Ratio 11 (6-26); Bilirubin,Total 0.1 mg/dL (0.2-1.2); Blood Urea Nitrogen 10 mg/dL (8-26); Calcium 8.6 mg/dL (8.6-10.8); Carbon Dioxide 22 mEq/L (19-29); Chloride 103 mEq/L (98-109); Chol/HDL Ratio 5.5 (0-4.9); Cholesterol 237 mg/dL (< 200); Globulin 3.4 g/dL (2.4-3.5); Glucose 296 mg/dL (70-99); HDL Cholesterol 43 mg/dL (40-59); Magnesium 1.3 mg/dL (1.6-2.6); Osmolality,Calculated 292 (280-300); Potassium 4.1 mEq/L (3.5-4.5); Sodium 136 mEq/L (136-145); Total Protein 6.3 g/dL (6.0-8.3); Triglycerides 184 mg/dL (< 150); eGFR For African Americans > 60 (> 60); eGFR For Non-African Americans > 60 (> 60)
[2016-05-12 01:03] LABS: LDL Cholesterol,Calculated 157 mg/dL (0-99)
[2016-05-12] MEDS: *HR* Heparin 5,000 UNIT/ML VIAL IVP PRN ×2 (01:03→06:52)
[2016-05-12 01:23] LABS: Thyroid Stimulating Hormone 4.243 mcIU/mL (0.350-4.840)
[2016-05-12] MEDS: *HR* Morphine 2 MG/ML SYRINGE IVP PRN ×2 (02:09→05:02)
[2016-05-12] MEDS ORDERED: Magnesium Sulfate 2 GM in D5% in Water 100 ML IVPB STA (05:10)
[2016-05-12] MEDS: *HR* HYDROmorphone (PF) 1 MG/ML SYRINGE IVP PRN ×2 (08:35→11:55)
--- NOTE | 2016-05-12 08:35 | Internal Med Progress Note ---
Date of Encounter: 05/12/16 Time of Encounter: 08:31 - Assessment and plan (1) Non-STEMI (non-ST elevated myocardial infarction) Current Visit: Yes Status: Acute Assessment and plan: Possible non-STEMI/unstable angina, the patient has history of CAD with multiple stents Troponins are 0.08 and 0.09 Complaining of severe headache with a nitroglycerin drip, consider discontinuing Continue Dilaudid, aspirin, Plavix, Lipitor, metoprolol Cardiology consulted to consider possible cardiac catheterization High risk due to non-STEMI (2) CAD (coronary artery disease), [place] coronary artery Current Visit: Yes Status: Chronic Qualifiers: [place] vs. 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 insulin use: without agricultural economics teacher use Qualified Code(s): E11.65 - Type 2 diabetes mellitus with hyperglycemia (4) Tobacco abuse Current Visit: No Status: Chronic (5) Unstable angina pectoris Current Visit: Yes Status: Acute (6) Nicotine dependence with nicotine-induced disorder Current Visit: Yes Status: Chronic Assessment and plan: Smoking cessation counseling Qualifiers: Nicotine product type: cigarettes Qualified Code(s): F17.219 - Nicotine dependence, cigarettes, with unspecified nicotine-induced disorders (7) Hypomagnesemia Current Visit: Yes Status: Acute Assessment and plan: Replete as needed - Subjective Interval history: The patient is complaining of severe chest pain midsternal radiating to his left chest that sometimes 10 out of 10 in intensity, also complaining of severe headache most likely from the nitroglycerin drip. He feels very nauseous, diaphoretic, denies any shortness of breath, no abdominal pain or dysuria - Constitutional Vitals: Temp Pulse Resp BP Pulse Ox 97.7 F 83 16 126/85 95 05/12/16 07:51 05/12/16 07:51 05/12/16 07:51 05/12/16 07:51 05/12/16 07:51 General appearance: Present: mild distress, A&O X 3, answers questions appropriately - Head Head exam: Present: atraumatic, normocephalic - Eye Eye exam: Present: PERRL, conjuntiva pink, sclera anicteric Pupils: Present: PERRL - Neck Neck exam general surgery: Present: supple, trachea midline. Absent: lymphadenopathy - Respiratory Respiratory exam: Present: decreased breath sounds, CTAB. Absent: accessory muscle use, rales, rhonchi, wheezes - Cardiovascular Cardiovascular exam: Present: RRR, +S1, +S2. Absent: diastolic murmur, gallop, rubs, systolic murmur - GI/Abdominal GI/Abdominal exam: Present: normal bowel sounds, soft, no peritoneal signs. Absent: distended, tenderness - Extremities Exam Extremities exam: Present: warm, radial pulses palpable and symetrical. Absent : calf tenderness, cyanotic, pedal edema - Neurological Exam Neurological exam: Present: CN II-XII intact, oriented X3, no focal deficits. Absent: pronater drift, facial droop, speech deficit - Skin Skin exam: Present: dry, intact Internal Medicine: Result - Labs CBC & Chem 7: 05/12/16 00:34 05/12/16 00:34 Labs: Short CBC 05/12/16 Range/Units 00:34 WBC 8.4 (4.3-11.1) K/mcL Hgb 12.1 L (12.9-16.9) g/dL Hct 36.3 L (37.5-50.1) % Plt Count 226 (140-400) K/mcL BMP 05/12/16 00:34 Sodium 136 Potassium 4.1 Chloride 103 Carbon Dioxide 22 BUN 10 Creatinine 0.87 Glucose 296 H Calcium 8.6 Cardiac Enzymes 05/12/16 05/12/16 Range/Units 00:34 05:52 Troponin I 0.09 H* 0.08 H* (0-0.03) ng/mL Liver Function 05/12/16 Range/Units 00:34 Total Bilirubin 0.1 L (0.2-1.2) mg/dL AST 14 (5-34) Units/L ALT 26 (0-55) Units/L Alkaline Phosphatase 161 H (38-126) Units/L Albumin 2.9 L (3.5-5.0) g/dL - ABG Interpretation ABG results: PT/INR, D-dimer PT 10.7 Seconds (9.4-12.1) 05/12/16 00:34 Consult Discharge Plan - Plan Referrals: Cyrus Coyne DO [Primary Care Provider] -
[2016-05-12] MEDS: Aspirin 81 MG TAB.CHEW PO SCH (08:39)
[2016-05-12] MEDS: Metoprolol XL (24 HR) Succ 50 MG TAB.ER.24H PO SCH (08:39)
[2016-05-12] MEDS: Lactobacillus 1 EACH CAP.SPRINK PO SCH ×2 (08:39→20:50)
[2016-05-12] MEDS: Magnesium Oxide 400 MG TABLET PO SCH ×2 (08:40→20:50)
[2016-05-12] MEDS: Insulin DETEMIR 100 UNIT/ML X5UNITS SQ SCH (08:43)
[2016-05-12] MEDS ORDERED: Pantoprazole 40 MG VIAL IVP SCH (09:00)
[2016-05-12] MEDS: Budesonide/Formoterol 160/4.5 MDI IH SCH ×2 (09:48→21:21)
--- NOTE | 2016-05-12 10:44 | Cardiology Consult Note ---
Date of Encounter: 05/12/16 Time of Encounter: 10:41 Assessment and Plan (1) Non-STEMI (non-ST elevated myocardial infarction) Current Visit: Yes Status: Acute Patient came in with mid sternal chest pain radiating to jaw. SOPHIA score: 5 Peak troponin .09, trending down. Note elevated total cholesterol, LDL, triglycerides. Patient was on Nitroglycerin drip, now turned off due to severe headache. Plan: cardiac catheterization later today. Continue with ASA, plavix, statin, BB Continue with current pain control regimen. (2) CAD (coronary artery disease), [place] coronary artery Current Visit: Yes Status: Chronic Patient had LHC in 01/09/16 that showed moderate residual 2 vessel CAD, LVEF 50% . Had PTCA to proximal mid LAD with 2 stents placed. Prior proximal RCA stent and mid RCA stents were patent. Plan: Continue ASA, statin, Plavix. Qualifiers: [place] vs. transplanted heart: [place] heart Associated angina: without angina Qualified Code(s): I25.10 - Atherosclerotic heart disease of [place] coronary artery without angina pectoris (3) Tobacco abuse Current Visit: No Status: Chronic Patient has hx of smoking for 20 years, 1/2 PPD patient counseled on importance of smoking cessation and its associated risks with heart disease. continue Nicotine patch as needed. (4) Uncontrolled diabetes mellitus Current Visit: Yes Status: Acute uncontrolled DM. A1C was 11.6 patient states he does not check his blood sugars regularly. patient counseled on importance of compliance with meds and blood sugar monitoring. Agree with consult to inclusion paraeducator. continue sliding scale insulin. 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 All questions were answered. Thank you for involving us in the care of your patient. Please call with any questions. History of Present Illness Consult date: 05/12/16 Requesting physician: Parish Regalado Consult reason: chest pain Chief complaint: chest pain History of present illness: Mr. Craig is a 60 year old male with PMHx of COPD, DM, VA, HLD, CVA. He came in last night with CC of anginal chest pain that began last evening. Pain was located at the middle of his chest, radiated to his left jaw. He describes the pain as sharp. Pain was not related to activity/exerton, and relieved with SL nitro and ASA. Cardiology was consulted for possible intervention. Past Med Surg Social Fam HX - Past Medical History Medical history: arthritis, asthma, cardiomyopathy, CHF, COPD, coronary artery disease, CVA, diabetes, GERD, hyperlipidemia, hypertension, myocardial infarction, peripheral artery disease, other (Hyperuricemia.Gout.) Psychiatric history: anxiety, depression, other - Past Surgical History Surgical History: angioplasty/stent, cholecystectomy, herniorrhaphy, knee replacement, orthopedic, other, other - Social History Smoking Status: Current every day smoker Smokeless Tobacco Status: No Alcohol use: none Drug use: none - Family History Mother Living Status: Hx Family Cancer: Yes (lung cancer) Father Living Status: Hx Family Cancer: Yes (colon cancer) Medications and Allergies Alprazolam [Xanax 0.5 MG Tablet] 0.5 mg PO BID 10/12/15 [History] Citalopram [CeleXA] 20 mg PO DAILY 10/12/15 [History] Gabapentin 600 mg PO TID 10/12/15 [History] Insulin Glargine [Lantus] 45 unit SQ DAILY 10/12/15 [History] Metformin HCl [Metformin HCl ER] 1,000 mg PO BID 10/12/15 [History] Oxycodone HCl 15 mg PO Q4H PRN 11/15/15 [History] Zolpidem [Ambien] 10 mg PO HS 11/15/15 [History] Albuterol Sulfate [Albuterol Inhaler] 2 puff IH Q4H PRN 03/18/16 [History] Allopurinol [Zyloprim 300 MG] 300 mg PO DAILY 03/18/16 [History] Aspirin 81 mg PO DAILY 03/18/16 [History] Atorvastatin Calcium [Lipitor] 80 mg PO DAILY 03/18/16 [History] Budesonide/Formoterol 160/4.5 [Symbicort 160/4.5] 2 puff IH BIDR 03/18/16 [ History] Clopidogrel [Plavix] 75 mg PO DAILY 03/18/16 [History] Lisinopril/Hydrochlorothiazide [Zestoretic 10-12.5 mg Tablet] 1 each PO BID [History] Metoprolol Succinate 100 mg PO DAILY 03/18/16 [History] Nitroglycerin [Nitrostat] 0.4 mg SL Q5M PRN 03/18/16 [History] Amoxicillin/Clavulanate [Augmentin] 875 mg PO BIDWM 7 Days 04/10/16 [Rx] Clindamycin HCl 300 mg PO Q6H 7 Days 04/10/16 [Rx] Lactobacillus [Culturelle] 1 each PO BID 10 Days 04/10/16 [Rx] Allergies No Known Allergies Allergy (Verified 05/11/16 18:33) ROS unobtainable: due to endotracheal tube All Systems Review: A 10-system review of systems was performed and is negative for pertinent findings except as documented above in the HPI. - Constitutional Constitutional: headache(s), no chills, no fatigue - Cardiovascular Cardiovascular: chest pain at rest, radiating jaw, neck or arm pain, no leg edema - Respiratory Respiratory: no hemoptysis - Gastrointestinal Gastrointestinal: no abdominal pain - Musculoskeletal Musculoskeletal: no abnormal gait Physical Examination Vital Signs, Last 4 Hours Temp Pulse Resp BP Pulse Ox 05/12/16 07:51 97.7 F 83 16 126/85 95 General: Conversant, Other (mild distress) HEENT: Atraumatic, Normocephaly Neck: Other (mild JVD) Cardiac: Reg Rate and Rhythm, Normal S1 and S2 Lungs: No Wheeze, Rales, Rhonchi Neuro: Alert and responsive, No focal deficits noted Abdomen: Soft, Non-Tender Extremities: No Clubbing, No Cyanosis Results 05/12/16 00:34 05/12/16 00:34 Lab Results 05/12/16 05/12/16 05/12/16 00:34 00:34 00:34 WBC 8.4 Hgb 12.1 L Hct 36.3 L Plt Count 226 INR 1.0 APTT 48.6 H D Sodium Potassium Chloride Carbon Dioxide BUN Creatinine Glucose Calcium Magnesium Total Bilirubin AST ALT Alkaline Phosphatase Troponin I 0.09 H* B-Natriuretic Peptide TSH 05/12/16 05/12/16 05/12/16 00:34 00:34 05:52 WBC Hgb Hct Plt Count INR APTT Sodium 136 Potassium 4.1 Chloride 103 Carbon Dioxide 22 BUN 10 Creatinine 0.87 Glucose 296 H Calcium 8.6 Magnesium 1.3 L Total Bilirubin 0.1 L AST 14 ALT 26 Alkaline Phosphatase 161 H Troponin I 0.08 H* B-Natriuretic Peptide 113 H TSH 4.243 05/12/16 05:52 WBC Hgb Hct Plt Count INR APTT 42.1 H Sodium Potassium Chloride Carbon Dioxide BUN Creatinine Glucose Calcium Magnesium Total Bilirubin AST ALT Alkaline Phosphatase Troponin I B-Natriuretic Peptide TSH Consult Discharge Plan - Plan Referrals: Cyrus Coyne DO [Primary Care Provider] -
--- NOTE | 2016-05-12 11:01 | ECHO - Doppler Report ---
Echocardiogram Name: Ghassan Craig Date of Study: 05/12/2016 Date: 1955 Ht: 72.0 in Medical Record#: [id number] Age: 60 Wt: 197.0 lb Gender: Male BSA: 2.12 Order #: [id number] Location: [facility] Room #: 2NE24 Reading Physician: Romina Gillespie DO Pharmacist In Charge: Yonatan St RDCS Ordering Physician: Parish Regalado MD Primary Physician: Cyrus Coyne DO Indications: Acute coronary syndrome Impressions: LVEF 50-55%. Normal LV wall motion. There is evidence of mild diastolic dysfunction of the left ventricle. Normal right ventricular size and function. Mild mitral regurgitation. No pulmonary hypertension. Left Ventricular Wall Motion: Rest Echo Findings All wall segments showed normal motion. Findings: Study Quality * Technically adequate exam. ECG Findings * Normal sinus rhythm. Left Ventricle * Normal LV chamber size, wall thickness and function. * Mild left ventricular diastolic dysfunction. * LVEF 50-55%. Aortic Valve * No aortic regurgitation. * Trileaflet aortic valve. * Normal aortic valve structure. * No aortic stenosis. Mitral Valve * Normal mitral valve structure. * No mitral stenosis. * Mild mitral regurgitation. Tricuspid Valve * Tricuspid valve not well visualized. * Trace tricuspid regurgitation. * Estimated RA pressure is 3 mmHg. * Estimated RVSP is 25 mmHg. * No pulmonary hypertension. Pulmonic Valve * Pulmonic valve is not well visualized. * No pulmonic stenosis. * Trace pulmonic regurgitation. Pulmonary Artery * Pulmonary artery not well visualized. Right Ventricle * Normal right ventricular structure and function. Left Atrium * Moderate to severely dilated. Right Atrium * Normal right atrial size. Interatrial Septum * No evidence of PFO by color Doppler. IVC * Normal IVC dimensions and inspiratory collapse. Pericardium * There is no pericardial effusion present. Aorta * Normally sized aortic root. History Hypertension Diabetes Hypercholesteremia History of Smoking Years 30 Packs 0.5 Family History of CAD History of CAD/PTCA Myocardial Infarction 01/07/16 a Previous Echo was performed. Measurements: BP: 126/ 85 2D Normal Values IVSd: 1.08 cm 0.6 - 1.0 cm LVIDd: 5.40 cm 3.7 - 5.6 cm LVPWd: .97 cm 0.6 - 1.1 cm LVIDs: 4.38 cm 1.5 - 3.6 cm AO: 3.10 cm < 4.0 cm LA: 4.10 cm 2.0 - 4.0cm %FS: 23.20 cm >25 % LA volume: 100 Mitral Valve Peak E:.86 m/sec Peak A:.96 m/sec E/A Ratio:0.9 Peak E' Lat Brando:5.44 cm/s Peak E' Med Brando:5.77 cm/s E/E' Lat Ratio:15.9 E/E' Med Ratio:15 Tricuspid Valve TV Regurg Peak Grad: 22.00mmHg TV Regurg Peak Brando: 2.35m/sec Updated by Romina Gillespie on 05/12/2016 10:55:39 AM electronically signed on 05/12/2016 10:57:05 AM with status of Final Wall Motion Sin: 1=Normal, 2=Hypokinesis, 3=Akinesis, 4=Dyskinesis, 5=Aneurysmal, 6=Hyperkinetic, X=Not Visualized (Blank)=Missing
--- NOTE | 2016-05-12 11:47 | Pre-Sedation Evaluation ---
Pre-sedation evaluation - Pre-sedation checklist Date of procedure: 05/12/16 Procedure: [facility] Recent Vitals: Last Vital Signs Temp 96.7 F L 05/12/16 11:37 Pulse 83 05/12/16 11:37 Resp 16 05/12/16 11:37 BP 151/95 05/12/16 11:37 Pulse Ox 96 05/12/16 11:37 H&P (including ROS) documented in medical record: Yes Previous reaction to sedatives/anesthetics: No Dietary Status: NPO after Midnight Dentition: dentures removed ASA Classification *see protocol: CLASS II-Mild systemic disease Plan of Care: Pt appropriate candidate for procedure/moderate/conscious sedation , Risks/benefits of procedure/sedation discussed w/ patient/family
--- NOTE | 2016-05-12 13:06 | Electrocardiograph Report ---
[place] [id number] Test Date: 2016-05-11 Pat Name: Ghassan Craig Department: 105 Room: 2NE24 Gender: M Community Planner: : 1955 Requested By: Brayan Ross Order Number: [id number] Reading MD: Gibran Adams MD Measurements Intervals [place] Rate: 83 P: 58 HI: 157 QRS: -26 QRSD: 84 T: 48 QT: 344 QTc: 383 Interpretive Statements SINUS RHYTHM BORDERLINE LEFT AXIS DEVIATION LOW QRS VOLTAGE IN PRECORDIAL LEADS Electronically Signed On 05-12-2016 13:04:47 EDT by Gibran Adams MD
--- NOTE | 2016-05-12 13:07 | Electrocardiograph Report ---
[place] [id number] Test Date: 2016-05-12 Pat Name: Ghassan Craig Department: 111 Room: 2NE24 Gender: M Lending Consultant: : 1955 Requested By: Parish Regalado Order Number: [id number] Reading MD: Gibran Adams MD Measurements Intervals [place] Rate: 86 P: 67 ID: [id number] QRS: -36 QRSD: 90 T: 60 QT: 363 QTc: 406 Interpretive Statements SINUS RHYTHM MARKED LEFT AXIS DEVIATION Electronically Signed On 05-12-2016 13:06:34 EDT by Gibran Adams MD
[2016-05-12] MEDS ORDERED: Verapamil 5 MG/2 ML VIAL ONE (14:06)
[2016-05-12] MEDS ORDERED: *HR* Heparin 10,000 UNIT/10 ML VIAL ONE (14:07)
[2016-05-12] MEDS ORDERED: Heparin 1,000 UNITS/500 mL NS 500 ML ONE (14:07)
[2016-05-12] MEDS ORDERED: 0.9 % Sodium Chloride 1,000 ML ONE ×2 (14:07→14:46)
[2016-05-12] MEDS ORDERED: Nitroglycerin 1,000 MCG/10 ML VIAL IV ONE (14:07)
[2016-05-12] MEDS ORDERED: *HR* FentaNYL (PF) 100 MCG/2 ML VIAL ONE (14:47)
[2016-05-12] MEDS ORDERED: *HR* Midazolam HCl 2 MG/2 ML VIAL ONE (14:47)
[2016-05-12] MEDS ORDERED: *HR* OxyCODONE Immed Rel 15 MG TABLET PO PRN (15:36)
--- NOTE | 2016-05-12 16:07 | Invasive Diagnostic Lab Proc ---
Name: Ghassan Craig Date of Study: 05/12/2016 Date: 1955 Ht: 71.7in Medical Record#: [id number] Age: 60 Wt: 196.21lb Gender: Male BSA: 2.11 Order #: [id number] BMI: 26.87 Physicians Procedure Physician: Gibran Adams MD, [facility] Referring MD: Referring MD: Staff Name Position Time In Vesna Regalado RT (R) Scrub 02:55 PM Jessica Avina RN Knitter Hand 02:55 PM Savannah Saravia RN Knitter Hand 02:55 PM Janet Grant RN Monitor 02:55 PM Indications Indication Non-Stemi Procedures Performed Procedure L HRT ARTERY/VENTRICLE ANGIO PRQ CARD CLAUDY STENT W/ANGIO 1 VSL Pre-Procedure Checklist Informed consent is complete signed and on chart. H\\T\\P is on chart. ID band is on and ID verified with patient. Patient NPO for procedure The procedure was described for the patient and questions were answered. ECG is on chart. Plan of Care Patient will tolerate the procedure without complications. Adequate level of comfort will be maintained. Hemodynamics will remain stable Patient will recover from procedure without complications. Respiratory function will be maintained. Cardiac rhythm will remain stable. Patient temperature will be maintained. Patient and/or family have verbalized understanding of the procedure. Patient Education Chief Complaint/Reason for Test: Cardiac Cath Developmental Category: Adult (18-64 years) Developmentally Appropriate for Age: Yes Learning Barriers: None Education Needs: Procedure Education Method: Verbal Information Taught: Cardiac Cath Educational Evaluation: Able to repeat information Intravenous Access Time IV Size Location DC'd Fluid/Drip Rate Units RN 03:13 PM 20g 1 1/" Patent On Arrival Lt Hand 0.9NaCl 25 ml/hr Jessica Avina RN Allergies NKDA Vital Signs Time BP (mmHg) HR (bpm) O2 Sat. RR (bpm) LOC 03:13 PM / % 5 = Fully awake and oriented or at pre-proc level 03:13 PM / % 5 = Fully awake and oriented or at pre-proc level 03:28 PM / % 5 = Fully awake and oriented or at pre-proc level 03:32 PM / % 5 = Fully awake and oriented or at pre-proc level 03:37 PM / % 5 = Fully awake and oriented or at pre-proc level 03:41 PM / % 5 = Fully awake and oriented or at pre-proc level 03:47 PM / % 5 = Fully awake and oriented or at pre-proc level 02:59 PM 183 / 89 74 98 % 19 03:03 PM 173 / 85 75 97 % 16 03:08 PM 164 / 78 75 95 % 12 03:13 PM 155 / 83 75 96 % 15 03:18 PM 149 / 73 73 92 % 12 03:23 PM 150 / 69 75 91 % 13 03:28 PM 160 / 71 75 96 % 17 03:33 PM 150 / 67 74 95 % 10 03:38 PM 164 / 76 72 97 % 19 03:43 PM 153 / 76 74 95 % 03:48 PM 159 / 69 73 97 % 14 03:53 PM 164 / 85 74 95 % 03:47 PM / % 5 = Fully awake and oriented or at pre-proc level Procedural Medications Time Medication Dose Units Method Given By 03:00 PM Oxygen 2 L/min nasal cannula Jessica Avina RN 03:00 PM Versed 2 mg Intravenous Jessica Avina RN 03:00 PM Fentanyl 50 mcg Intravenous Jessica Avina RN 03:12 PM Lidocaine 2% 0.5 ml Subcutaneous Gibran Adams MD, FACC 03:13 PM Nitroglycerin 200 mcg Intraarterial Gibran Adams MD 03:13 PM Verapamil 2.5 mg Intraarterial Gibran Adams MD, FACC 03:24 PM Oxygen 4 L/min nasal cannula Jessica Avina RN 03:25 PM Heparin 4000 units Intraarterial Gibran Adams MD ASA Classification: CLASS II- Mild systemic disease (i.e. well-controlled diabetes, hypertension, asthma, cigarette smoking) Marion Score Preprocedure Postprocedure Activity 2- Moves 4 extremities sustained head lift Activity 2- Moves 4 extremities sustained head lift Circulation 2- SBP +/= 20 points of pre-anesthetic level Circulation 2- SBP +/= 20 points of pre-anesthetic level Consciousness 2- Awake and alert oriented x 3 Consciousness 2- Awake and alert oriented x 3 O2 Saturation 2- Able to maintain O2 satruation of 92% on room air O2 Saturation 2- Able to maintain O2 satruation of 92% on room air Respiratory 2- Able to deep breathe and cough well Respiratory 2- Able to deep breathe and cough well Total Score 10 Total Score 10 Contrast Agent: Isovue Diagnostic Contrast: 155 ml Total Contrast: 155 ml Fluoro Dose: 861 mGy Activated Clotting Time Time Seconds to Clot 03:25 PM 142 Procedure Log Time Note Enter By 02:55 PM Pt arrived to animal laboratory helper 2 at 14:55 ejohnson 02:55 PM Vesna Regalado (R) Position: Scrub Time in: 14:55 ejohnson 02:55 PM Jessica Avina RN Position: Knitter Hand Time in: 14:55 ejohnson 02:55 PM Savannah Saravia RN Position: Knitter Hand Time in: 14:55 ejohnson 02:55 PM Janet Grant RN Position: Monitor Time in: 14:55 ejohnson 02:55 PM Patient charges- Angio tray pack, Navilyst 3mm J, Pulse Oximetry and ACIST tubing and transducer ejohnson 02:55 PM Case Delayed No ejohnson 02:55 PM Hair removed from procedure site in procedure lab using clippers. Right wrist and bilateral groin prepped with Chloraprep by Vesna regalado RT , safety strap applied then patient was draped. Skin intact. ejohnson 02:56 PM ASA Class CLASS II- Mild systemic disease (i.e. well-controlled diabetes, hypertension, asthma, cigarette smoking) ejohnson 02:56 PM Meet and greet completed ejohnson 02:56 PM Sign in performed according to hospital policy. ejohnson 02:56 PM Procedure start 14:56 ejohnson 02:56 PM CathStat 02:57 PM Vitals capture started with the following parameters, Patient=Adult, Interval=5 min, Initial Uktldqvr=627 mmHg, Deflation Rate=5 mmHg, Cuff placed on Left Arm 02:57 PM Recorded ECG: HR=76 Condition=Condition 1 02:59 PM HR=74 bpm, PZFN=041/89 mmhg, SpO2=98.0 %, Resp=19 B/min, Comment=SR 03:00 PM Time: 15:00 Oxygen on at 2 L/min per nasal cannula by Jessica Avina RN [email or web address] 03:00 PM Time: 15:00 Versed 2 mg Intravenous Given by Jessica Avina RN [email or web address] 03:00 PM Time: 15:00 Fentanyl 50 mcg Intravenous Given by Jessica Avina RN ejohnson 03:03 PM HR=75 bpm, POXX=058/85 mmhg, SpO2=97.0 %, Resp=16 B/min, Comment=SR 03:08 PM HR=75 bpm, UCIX=387/78 mmhg, SpO2=95.0 %, Resp=12 B/min, Comment=SR 03:09 PM Pressure channel 1 zeroed. 03:12 PM Time out performed according to hospital policy ejohnson 03:12 PM Time: 15:12 0.5 ml Lidocaine 2% to right radial Subcutaneous Given by Gibran Adams MD, [facility] ejohnson 03:12 PM Time: 15:12 Patient comfortable and pain free: Yes ejohnson 03:13 PM Time: 15:13LOC: 5 = Fully awake and oriented or at pre-proc level ejohnson 03:13 PM HR=75 bpm, WATW=794/83 mmhg, SpO2=96.0 %, Resp=15 B/min, Comment=SR 03:13 PM Access obtained by percutaneous puncture. 6Fr 10cm Terumo Glidesheath sheath placed in right Radial artery. [id number] ejohnson 03:13 PM Time: 15:13 Patient given 200 mcg Nitroglycerin, and 2.5 mg Verapamil Intraarterial by Gibran Adams MD, [facility] ejohnson 03:14 PM 5Fr TIG catheter inserted over the wire [facility] ejohnson 03:14 PM Catheter selectively placed in left ventricle ejohnson 03:14 PM Bolus angiogram of left Ventricle complete: 10 ml/sec for a total of 20 mls ejohnson 03:14 PM Pressure channel 1 zero failed. 03:15 PM Pressure channel 1 zero failed. 03:15 PM Pressure channel 1 zero failed. 03:15 PM Pressure channel 1 zero failed. 03:15 PM Recorded Pressure: LV, HR=96, Condition=Condition 1 (Left Ventricle) LV 113/9/8 03:16 PM Recorded Pressure: LV, Ao, HR=84, Condition=Condition 1 (Left Ventricle) LV 102/-3/7, (Aorta) Ao 105/67/84 03:16 PM Recorded Pressure: Ao, HR=80, Condition=Condition 1 (Aorta) Ao 98/66/81 03:16 PM LCA angiography performed in multiple views. ejohnson 03:17 PM Recorded Pressure: Ao, HR=77, Condition=Condition 1 (Aorta) Ao 105/73/88 03:18 PM RCA angiography performed in multiple views. ejohnson 03:18 PM Lesion found in Right PDA. Pre Stenosis: 50 Pre SOPHIA Flow: 3: Complete and Brisk Flow/Perfusion ejohnson 03:18 PM HR=73 bpm, YHPW=288/73 mmhg, SpO2=92.0 %, Resp=12 B/min, Comment=SR 03:18 PM Right Coronary, Right Posterior Descending Arteries with Right Posterolateral and Acute Marginal branches with 50 % stenosis. ejohnson 03:19 PM Catheter removed ejohnson 03:20 PM 5Fr RBL 3.5 Convey guide catheter was used to cannulate the PCI vessel successfully. reused? No ejohnson 03:21 PM Inflation device was opened. ejohnson 03:22 PM Guide wire removed intact. ejohnson 03:22 PM 6Fr RBL 3.5 Convey guide catheter was used to cannulate the PCI vessel successfully. reused? No ejohnson 03:23 PM HR=75 bpm, LYMC=096/69 mmhg, SpO2=91.0 %, Resp=13 B/min, Comment=SR 03:24 PM .014 PT Graphix 180cm guide wire across target lesion- successful. reused? No ejohnson 03:24 PM 2.5 mm x 15 mm Emerge Monorail balloon across target lesion- successful. reused? No ejohnson 03:24 PM Time: 15:24 Oxygen on at 4 L/min per nasal cannula by Jessica Avina RN ejohnson 03:25 PM At 15:25 the ACT was 142 seconds. ejohnson 03:25 PM Time: 15:25 Heparin 4000 units Intraarterial Given by Gibran Adams MD ejohnson 03:27 PM Balloon inflated @ 14 pankaj for 14 seconds ejohnson 03:28 PM Balloon inflated @ 14 pankaj for 10 seconds ejohnson 03:28 PM Time: 15:12 Patient comfortable and pain free: Yes ejohnson 03:28 PM Time: 15:13LOC: 5 = Fully awake and oriented or at pre-proc level ejohnson 03:28 PM Balloon inflated @ 14 pankaj for 8 seconds ejohnson 03:28 PM Balloon inflated @ 14 pankaj for 8 seconds ejohnson 03:28 PM HR=75 bpm, WZWO=192/71 mmhg, SpO2=96.0 %, Resp=17 B/min, Comment=SR 03:30 PM Balloon catheter removed intact. ejohnson 03:31 PM 3.0mm x 38mm Synergy drug-eluting stent across target lesion- successful Lot #[id number] ejohnson 03:32 PM Time: 15:28 Patient comfortable and pain free: Yes ejohnson 03:32 PM Time: 15:28LOC: 5 = Fully awake and oriented or at pre-proc level ejohnson 03:33 PM HR=74 bpm, FVYN=961/67 mmhg, SpO2=95.0 %, Resp=10 B/min, Comment=SR 03:35 PM Stent deployed @ 16 pankaj for 22 seconds ejohnson 03:36 PM Stent delivery system removed intact. ejohnson 03:36 PM Recorded Pressure: Ao, HR=75, Condition=Condition 1 (Aorta) Ao 116/65/87 03:37 PM Time: 15:32 Patient comfortable and pain free: Yes ejohnson 03:37 PM Time: 15:32LOC: 5 = Fully awake and oriented or at pre-proc level ejohnson 03:37 PM 3.5 mm x 20mm NC Emerge balloon across target lesion- successful. reused? No ejohnson 03:38 PM HR=72 bpm, CMGV=686/76 mmhg, SpO2=97.0 %, Resp=19 B/min, Comment=SR 03:38 PM Balloon inflated @ 20 pankaj for 16 seconds ejohnson 03:39 PM Balloon inflated @ 20 pankaj for 8 seconds ejohnson 03:40 PM Balloon inflated @ 20 pankaj for 12 seconds ejohnson 03:41 PM Balloon inflated @ 22 pankaj for 15 seconds ejohnson 03:41 PM Time: 15:37 Patient comfortable and pain free: Yes ejohnson 03:41 PM Time: 15:37LOC: 5 = Fully awake and oriented or at pre-proc level ejohnson 03:43 PM HR=74 bpm, BHTS=257/76 mmhg, SpO2=95.0 %, Comment=SR 03:44 PM Balloon catheter removed intact. ejohnson 03:45 PM 3.75 mm x 8mm NC Emerge balloon across target lesion- successful. reused? No ejohnson 03:45 PM Balloon inflated @ 5 pankaj for 7 seconds ejohnson 03:46 PM Balloon inflated @ 5 pankaj for 7 seconds ejohnson 03:46 PM Balloon inflated @ 5 pankaj for 7 seconds ejohnson 03:46 PM Balloon inflated @ 18 pankaj for 20 seconds ejohnson 03:46 PM Time: 15:41 Patient comfortable and pain free: Yes ejohnson 03:47 PM Time: 15:41LOC: 5 = Fully awake and oriented or at pre-proc level ejohnson 03:47 PM Balloon inflated @ 18 pankaj for 16 seconds ejohnson 03:47 PM Time: 15:46 Patient comfortable and pain free: Yes ejohnson 03:47 PM Time: 15:47LOC: 5 = Fully awake and oriented or at pre-proc level ejohnson 03:48 PM HR=73 bpm, OFLF=436/69 mmhg, SpO2=97.0 %, Resp=14 B/min, Comment=SR 03:48 PM Balloon catheter removed intact. ejohnson 03:48 PM Guide wire removed intact. ejohnson 03:49 PM Guide catheter removed intact. ejohnson 03:51 PM Procedure completed at 15:51 ejohnson 03:51 PM Sign out completed: Radiation Dose 860.64 mGy Fluoro Time: 11.2 Isovue 370 - 200ml contrast 155 ml given by Gibran Adams MD, [facility]. Complications: NoneCardiac Rehab Consult needed: YesConfirmed administered medications: Yes ejohnson 03:51 PM Isovue 370 - 200ml,1 Bottle(s) used. ejohnson 03:52 PM Arterial sheath pulled, Vasc Band closure device used and was Successful S/N. ejohnson 03:52 PM 10 ml air in Vasc Band. ejohnson 03:52 PM Post ECG NSR ejohnson 03:52 PM Post Blood Pressure 159/69 ejohnson 03:53 PM 15:52 Post Pulses Rt Radial 1+ ejohnson 03:53 PM Information taught PCI and Vasc Band ejohnson 03:53 PM Education needs Plan of Care and Responsibilities of Patient in Care ejohnson 03:53 PM Learning barriers :None ejohnson 03:53 PM Time: 15:47 Patient comfortable and pain free: Yes ejohnson 03:53 PM HR=74 bpm, YSVQ=804/85 mmhg, SpO2=95.0 %, Comment=SR 03:53 PM Time: 15:47LOC: 5 = Fully awake and oriented or at pre-proc level ejohnson 03:53 PM Education Methods Verbal ejohnson 03:53 PM Education evaluation Able to repeat information ejohnson 03:53 PM Site status No bleeding/hematoma - Rt Wrist as reported by Vesna Regalado RT (R) at 15:53 ejohnson 03:53 PM Plavix, Effient or Brilinta given Yes on the unit prior to 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 ejohnson 03:54 PM Complications: None ejohnson 03:54 PM Lesion found in Proximal LAD. Pre Stenosis: 90 Pre SOPHIA Flow: 3: Complete and Brisk Flow/Perfusion ejohnson 03:56 PM Lesion found in Mid LAD. Pre Stenosis: 60 Pre SOPHIA Flow: 3: Complete and Brisk Flow/Perfusion ejohnson 03:56 PM Proximal Left Anterior Descending Coronary Artery with 90% stenosis. ejohnson 03:56 PM Mid/Distal Left Anterior Descending Coronary Artery and diagonal branches with 60% stenosis. ejohnson 03:57 PM Report given to Abi IBANEZ Pt taken to E Room #24. 15:57 ejohnson 03:57 PM Patient out of room: 15:57 ejohnson 04:01 PM Coronary Dominance: right ejohnson Complications Complication None Hemodynamics Pressures Site Systolic/A Wave Diastolic/V Wave Mean LV 113 9 8 LV 102 -3 7 AO 105 67 84 AO 98 66 81 AO 105 73 88 AO 116 65 87 Post Procedure Information Blood Pressure: 159/69 mmHg Rhythm: NSR Post procedural instructions were given Closure Device Time Device Success/Fail 05/12/2016 3:52:00 PM Mechanical Compression Successful Site Checks Time Location Status Staff Sheath In? Note 03:53 PM Rt Wrist No bleeding/hematoma Vesna Regalado RT (R) Pulses Time Site Pre-Procedure Post-Procedure Note 3:52:00 PM Rt Radial 1+ 05/12/2016 3:13:00 PM Rt Radial 2+ Updated by Janet Grant RN on 05/12/2016 4:03:02 PM Janet Grant RN electronically signed on 05/12/2016 4:03:43 PM with status of Final
--- NOTE | 2016-05-12 16:27 | Electrocardiograph Report ---
[place] [id number] Test Date: 2016-05-11 Pat Name: Ghassan Craig Department: 111 Room: 2NE24 Gender: M Orthotic Aide: : 1955 Requested By: Kevin Pillai Order Number: [id number] Reading MD: Gibran Adams MD Measurements Intervals [place] Rate: 81 P: 57 ND: 149 QRS: -31 QRSD: 112 T: 58 QT: 348 QTc: 385 Interpretive Statements SINUS RHYTHM MARKED LEFT AXIS DEVIATION INCOMPLETE RBBB V2-V3 LIKELY SWITCHED Electronically Signed On 05-12-2016 16:26:00 EDT by Gibran Adams MD
[2016-05-13] MEDS: 0.9 % Sodium Chloride 1,000 ML IVC SCH (05:00)
[2016-05-13 05:59] LABS: Hematocrit 37.6 % (37.5-50.1); Hemoglobin 12.5 g/dL (12.9-16.9); Mean Corpuscular HGB Conc 33.2 g/dL (31.6-35.5); Mean Corpuscular Hemoglobin 31.5 pg (28.0-33.3); Mean Corpuscular Volume 94.7 fL (83.0-100.0); Mean Platelet Volume 9.7 fL (9.4-12.4); Platelet Count 260 K/mcL (140-400); Red Blood Count 3.97 M/mcL (4.19-5.50)
[2016-05-13] MEDS ORDERED: *HR* Enoxaparin 40 MG/0.4 ML SYRINGE SQ SCH (06:00)
[2016-05-13 06:26] LABS: BUN/Creatinine Ratio 13 (6-26); Blood Urea Nitrogen 13 mg/dL (8-26); Calcium 8.4 mg/dL (8.6-10.8); Carbon Dioxide 23 mEq/L (19-29); Chloride 108 mEq/L (98-109); Glucose 162 mg/dL (70-99); Osmolality,Calculated 296 (280-300); Potassium 3.8 mEq/L (3.5-4.5); Sodium 141 mEq/L (136-145); eGFR For African Americans > 60 (> 60); eGFR For Non-African Americans > 60 (> 60)
[2016-05-13] MEDS: Budesonide/Formoterol 160/4.5 MDI IH SCH (07:51)
[2016-05-13] MEDS: Aspirin 81 MG TAB.CHEW PO SCH (08:46)
[2016-05-13] MEDS: ALPRAZolam 0.5 MG TABLET PO SCH (08:47)
[2016-05-13] MEDS: Lactobacillus 1 EACH CAP.SPRINK PO SCH (08:47)
[2016-05-13] MEDS: Metoprolol XL (24 HR) Succ 50 MG TAB.ER.24H PO SCH (08:48)
[2016-05-13] MEDS: Magnesium Oxide 400 MG TABLET PO SCH (08:48)
[2016-05-13] MEDS: Gabapentin 300 MG CAPSULE PO SCH (08:48)
[2016-05-13] MEDS: Insulin LISPRO 300 UNITS/3 ML VIAL SQ SCH (08:49)
[2016-05-13] MEDS: *HR* HYDROmorphone (PF) 1 MG/ML SYRINGE IVP PRN (08:51)
[2016-05-13] MEDS: Insulin DETEMIR 100 UNIT/ML X5UNITS SQ SCH (08:52)
--- NOTE | 2016-05-13 08:56 | Cardiology Progress Note ---
Date of Encounter: 05/13/16 Time of Encounter: 08:53 Assessment and Plan (1) Non-STEMI (non-ST elevated myocardial infarction) Current Visit: Yes Status: Acute Patient came in with mid sternal chest pain radiating to jaw. SOPHIA score: 5 Peak troponin .09 elevated total cholesterol, LDL, triglycerides. s/p LHC yesterday. Preliminary report shows EF 40%, CLAUDY to prox LAD with 90% blockage. Mid LAD: 60%, R PDA: 50%. Final report pending. Plan: Continue with ASA, plavix, statin, BB Patient will be scheduled for outpatient follow up with [facility]. Safe to discharge home. Cardiology will sign off at this time. Patient may return to work in 5-7 days. Will discuss further at cardiology follow up appointment. No heavy lifting. (2) CAD (coronary artery disease), [place] coronary artery Current Visit: Yes Status: Chronic s/p LHC yesterday, see above. Continue ASA, statin, Plavix. Qualifiers: [place] vs. transplanted heart: [place] heart Associated angina: without angina Qualified Code(s): I25.10 - Atherosclerotic heart disease of [place] coronary artery without angina pectoris (3) Tobacco abuse Current Visit: No Status: Chronic Patient has hx of smoking for 20 years, 1/2 PPD patient counseled on importance of smoking cessation and its associated risks with heart disease. continue Nicotine patch as needed. (4) Uncontrolled diabetes mellitus Current Visit: Yes Status: Acute uncontrolled DM. A1C was 11.6 patient states he does not check his blood sugars regularly. patient counseled on importance of compliance with meds and blood sugar monitoring. Agree with consult to clinical staff educator. continue sliding scale insulin. Qualifiers: Diabetes mellitus type: type 2 Diabetes mellitus complication status: with unspecified complications Diabetes mellitus hitting coach insulin use: unspecified retirement insulin use status Qualified Code(s): E11.8 - Type 2 diabetes mellitus with unspecified complications; E11.65 - Type 2 diabetes mellitus with hyperglycemia Discussion w patient/family: The assessment and plan as outlined above was discussed with the patient and/or family members who expressed understanding and agreement. All questions were answered. Thank you for involving us in the care of your patient. Please call with any questions. Subjective Principal diagnosis: NSTEMI Interval history: 60 year old male evaluated at bedside. He is s/p LHC, which was done yesterday. Preliminary report shows EF 40%, placement of CLAUDY to proximal LAD, with 90% stenosis. mid LAD 60% stenosed, right PDA 50% Objective Vital Signs, Last 4 Hours Temp Pulse Resp BP Pulse Ox 05/13/16 08:00 98.5 F 76 17 106/65 97 05/13/16 06:58 98.2 F 74 16 121/72 95 General: Conversant, No Apparent Distress HEENT: Atraumatic, Normocephaly Cardiac: Reg Rate and Rhythm, Normal S1 and S2 Lungs: Normal Breath Sounds, No Wheeze, Rales, Rhonchi Neuro: Alert and responsive, No focal deficits noted Abdomen: Soft, Non-Tender Extremities: No Cyanosis, No Edema Results 05/13/16 04:36 05/13/16 04:36 Lab Results 05/12/16 05/12/16 05/13/16 12:51 12:51 04:36 WBC 10.3 Hgb 12.5 L Hct 37.6 Plt Count 260 INR APTT 45.3 H Sodium Potassium Chloride Carbon Dioxide BUN Creatinine Glucose Calcium Magnesium Troponin I 0.05 H* 05/13/16 05/13/16 05/13/16 04:36 04:36 04:36 WBC Hgb Hct Plt Count INR 1.0 APTT Sodium 141 Potassium 3.8 Chloride 108 Carbon Dioxide 23 BUN 13 Creatinine 1.00 Glucose 162 H Calcium 8.4 L Magnesium 1.8 Troponin I Consult Discharge Plan - Plan Referrals: Cyrus Coyne DO [Primary Care Provider] - 05/22/16 12:00 pm
[2016-05-13] MEDS: Nicotine 21 MG PATCH.TD24 TD SCH (10:27)
[2016-05-13 10:37] VITALS: BP 101/64
--- NOTE | 2016-05-13 14:25 | Invasive Diagnostic Lab ---
Name: Ghassan Craig Date of Study: 05/12/2016 Date: 1955 Ht: 182.0 cm /71.7 in Medical Record#: [id number] Age: 60 Wt: 89. kg / 196.21 lb Account/Order#: [id number] Gender: Male BSA: 2.11 Order #: [id number] Fluoro Dose: 861 mGy BMI: 26.87 Procedure Physician: Gibran Adams MD, [facility] Referring MD: Referring MD: Procedures Performed: LEFT HEART CATH Stent w/ PTCA Single Major Vessel Indications: Non-Stemi Impressions: There is severe one vessel coronary artery disease. The left ventricle EF 40% Patient had successful PTCA/Drug-Eluting Stent placement in the proximal-mid LAD. Recommendations: Optimal medical therapy of patient's disease. Aggressive risk factor modification. History/Risk Factors: MD Diabetes Hypertension Dyslipidemia Family History of CAD Chronic Lung Disease Procedure Access obtained in the right Radial artery by percutaneous puncture Patient had successful PTCA/Drug-Eluting Stent placement in the proximal LAD. Complications: None Contrast: Isovue 155ml Hemodynamics: Pressures Site Systolic/ A Wave Diastolic/ V Wave End Diastolic/ Mean HR LV 113 9 8 96 LV 102 -3 7 83 AO 105 67 84 85 AO 98 66 81 80 AO 105 73 88 77 AO 116 65 87 75 LV Ventriculography Ejection Method: LV Gram Ejection Fraction: 40% Wall Motion: CONNOLLY Anterobasal Mild Hypokinesis Anterolateral Mild Hypokinesis Apical: Normal Inferoapical Normal Inferobasal Normal Coronary Dominance: Right Lesion Findings/Interventions * Left Main Coronary Artery The LMCA is angiographically free of disease. * Left Anterior Descending There is a 99% stenosis in the Proximal LAD. The lesion has a SOPHIA flow of 2. s/p successful intervention with 38mm CLAUDY without complication. SOPHIA 3 flow post procedure, 0% residual stenosis. Instent restenosis. Stent postdilated with 3.5 NC, proximal portion with 3.75 NC to high pressure. There is a 60% stenosis in the Mid LAD. The lesion has a SOPHIA flow of 3. * Circumflex The Circumflex is angiographically free of disease. The 1st Marginal is angiographically free of disease. * Ramus The Ramus is angiographically free of disease. * Right Coronary Artery There is a 50% stenosis in the Right PDA. The lesion has a SOPHIA flow of 3. Interventional Device(s) Vessel Segment Type Name Diameter (mm) Length (mm) Proximal LAD balloon NC Emerge 3.75 8 Proximal LAD balloon NC Emerge 3.5 20 Proximal LAD drug-eluting stent Synergy 3 38 Proximal LAD balloon Emerge Monorail 2.5 15 Updated by Janet Grant RN on 05/12/2016 4:00:03 PM Gibran Adams MD, FACC electronically signed on 05/13/2016 2:20:08 PM with status of Final
--- NOTE | 2016-05-13 19:53 | Discharge Summary ---
Date of Encounter: 05/13/16 Time of Encounter: 09:00 (I did not have a [id number] encounter with this patient) - Discharge Diagnosis (1) IDDM (insulin dependent diabetes mellitus) Priority: Secondary Status: Acute (2) Non-STEMI (non-ST elevated myocardial infarction) Priority: Primary Status: Acute (3) Uncontrolled diabetes mellitus Priority: Secondary Status: Acute Qualifiers: Diabetes mellitus type: type 2 Diabetes mellitus complication status: with unspecified complications Diabetes mellitus shelter insulin use: unspecified shelter insulin use status Qualified Code(s): E11.8 - Type 2 diabetes mellitus with unspecified complications; E11.65 - Type 2 diabetes mellitus with hyperglycemia (4) Anxiety Priority: Secondary Status: Chronic (5) COPD (chronic obstructive pulmonary disease) Priority: Secondary Status: Chronic Qualifiers: COPD type: unspecified COPD Qualified Code(s): J44.9 - Chronic obstructive pulmonary disease, unspecified (6) Chronic back pain Priority: Secondary Status: Chronic Qualifiers: Back pain location: low back pain Back pain laterality: unspecified Sciatica presence: with sciatica Sciatica laterality: sciatica laterality unspecified Qualified Code(s): M54.40 - Lumbago with sciatica, unspecified side; G89.29 - Other chronic pain (7) HLD (hyperlipidemia) Priority: Secondary Status: Chronic Qualifiers: Hyperlipidemia type: mixed hyperlipidemia Qualified Code(s): E78.2 - Mixed hyperlipidemia (8) HTN (hypertension) Priority: Secondary Status: Chronic Qualifiers: Hypertension type: essential hypertension Qualified Code(s): I10 - Essential (primary) hypertension (9) Nicotine dependence with nicotine-induced disorder Priority: Secondary Status: Chronic Qualifiers: Nicotine product type: cigarettes Qualified Code(s): F17.219 - Nicotine dependence, cigarettes, with unspecified nicotine-induced disorders - Discharge Medications Home Medications: Alprazolam [Xanax 0.5 MG Tablet] 0.5 mg PO BID 10/12/15 [History] Citalopram [CeleXA] 20 mg PO DAILY 10/12/15 [History] Gabapentin 600 mg PO TID 10/12/15 [History] Insulin Glargine [Lantus] 45 unit SQ DAILY 10/12/15 [History] Metformin HCl [Metformin HCl ER] 1,000 mg PO BID 10/12/15 [History] Oxycodone HCl 15 mg PO Q4H PRN 11/15/15 [History] Zolpidem [Ambien] 10 mg PO HS 11/15/15 [History] Albuterol Sulfate [Albuterol Inhaler] 2 puff IH Q4H PRN 03/18/16 [History] Allopurinol [Zyloprim 300 MG] 300 mg PO DAILY 03/18/16 [History] Aspirin 81 mg PO DAILY 03/18/16 [History] Atorvastatin Calcium [Lipitor] 80 mg PO DAILY 03/18/16 [History] Budesonide/Formoterol 160/4.5 [Symbicort 160/4.5] 2 puff IH BIDR 03/18/16 [ History] Clopidogrel [Plavix] 75 mg PO DAILY 03/18/16 [History] Metoprolol Succinate 100 mg PO DAILY 03/18/16 [History] Nitroglycerin [Nitrostat] 0.4 mg SL Q5M PRN 03/18/16 [History] Tadalafil [Cialis] 20 mg PO DAILY 05/12/16 [History] Allergies/Adverse Reactions: Allergies No Known Allergies Allergy (Verified 05/11/16 18:33) Procedures/tests Complete & Pending: Procedures Performed prior 72 hours Category Date Time Status ECG 12 lead ECG [ECG] Routine Y 05/11/16 23:33 Completed Date of admission: 05/12/16 12:36 Primary care physician: Gudelia Hubbard - Patient Status Disposition: Left Against Medical Advice Condition: Good - Discharge Instructions Follow Up With: Cyrus Coyne DO [Primary Care Provider] - 05/22/16 12:00 pm Hospital course: Mr. Craig is a 60 year old male with multiple medical comorbidities who presented to the hospital for chest pain. Workup revealed elevated troponin. He was admitted to the medical service. He had a cardiac catheterization which revealed a 99% in-stent restenosis. this was addressed with PCI. He tolerated the procedure well and he was returned to the medical abad. Today he was visited by cardiology for follow-up. I have not had a chance to meet the patient during this hospital stay. He became anxious and asked to leave the hospital. He was offered AMA papers however he eloped without signing any paperwork. I have not had the opportunity to discuss the risks of his leaving AGAINST MEDICAL ADVICE. Patient appeared to be lucid, alert oriented and appropriate to the nursing staff this morning. - Time Spent with Patient Total time spent providing and/or coordinating discharge services: - Constitutional Vitals: Temp Pulse Resp BP Pulse Ox 98.4 F 71 16 101/64 93 L 05/13/16 10:36 05/13/16 10:36 05/13/16 10:36 05/13/16 10:36 05/13/16 10:36 General appearance: Present: mild distress, A&O X 3, answers questions appropriately
== END 2016-05-13 11:45 | disposition left against medical advice (07) | DRG 246 ==
LOC: EMEROO 18:32 → 2NENU 18:32 → SUATTDRO 05-12 12:36
PROVIDERS: ADMIT Internal Medicine; ATTEND Internal Medicine

== ENCOUNTER 2017-03-01 13:38 | Inpatient (IN) ==
--- NOTE | 2017-03-01 13:51 | Emergency Department Note ---
Disposition Clinical Impression: HHNC (hyperglycemic hyperosmolar nonketotic coma), Bladder mass, Urinary retention, Hyperkalemia, Hyponatremia Abdominal pain Qualifiers: Abdominal location: lower abdomen, unspecified Qualified Code(s): R10.30 - Lower abdominal pain, unspecified Disposition: Admitted As Inpatient Condition: Fair Referrals: Cyrus Coyne DO [Primary Care Provider] - Forms: ED Satisfaction Letter Time of Disposition: 18:29 Male Urogenital HPI - General Chief complaint: ED Urogenital-Male Stated complaint: difficulty urinating Time Seen by Provider: 03/01/17 13:51 Source: patient Mode of arrival: ambulatory Limitations: no limitations Nursing Notes Reviewed: Yes Vital Signs Reviewed: Yes - History of Present Illness HPI Narrative: 61-year-old male history of diabetes, hypertension, hyperlipidemia, previous GI bleed, previous bladder mass, presents with dysuria, increased frequency. Patient states he is not able to hold his urine. He states that he will be up walking around and then his start seriously urine. He was seen about 5 or 6 months ago by urologist, they did a cystoscopy, and he did have a bladder mass that is being evaluated, they stated that he may need to have more work needed consultation with general surgery. Patient never followed up it is in about 5 or 6 months since the previous evaluation. Patient states that he called his urologist today was concern for symptoms of a sent him to the emergency department. Patient reports absent pain mostly in his groin, and is superpubic area. He states that he is leaking is not sure but he thinks that he is emptying all the way. Patient denies hematuria, denies fevers or chills or shortness of breath. Pt Subjective Complaint: urinary retention Onset (ago): week(s) Duration: intermittent, gradually worsening Location: other Severity: moderate Severity scale (1-10): 8 Improves with: urination Worsens with: none Reports: mass, urinary retention. Denies: discharge, swelling, hematuria - Related Data Home Medications Medication Instructions Recorded Confirmed Citalopram [CeleXA] 20 mg PO DAILY 10/12/15 03/01/17 Insulin Glargine [Lantus] 45 unit SQ HS 10/12/15 03/01/17 Metformin HCl [Metformin HCl ER] 1,000 mg PO BID 10/12/15 03/01/17 Oxycodone HCl 15 mg PO Q4H PRN 11/15/15 03/01/17 Zolpidem [Ambien] 10 mg PO HS 11/15/15 03/01/17 Albuterol Sulfate [Albuterol 2 puff IH Q4H PRN 03/18/16 03/01/17 Inhaler] Aspirin 81 mg PO DAILY 03/18/16 03/01/17 Atorvastatin Calcium [Lipitor] 80 mg PO HS 03/18/16 03/01/17 Budesonide/Formoterol 160/4.5 2 puff IH BIDR 03/18/16 03/01/17 [Symbicort 160/4.5] Clopidogrel [Plavix] 75 mg PO DAILY 03/18/16 03/01/17 Metoprolol Succinate 100 mg PO DAILY 03/18/16 03/01/17 Nitroglycerin [Nitrostat] 0.4 mg SL Q5M PRN 03/18/16 03/01/17 ALPRAZolam [Xanax 0.5 MG Tablet] 0.5 mg PO BID 11/25/16 03/01/17 Gabapentin [Neurontin] 800 mg PO TID 11/25/16 03/01/17 Previous Rx's Medication Instructions Recorded Cyclobenzaprine [Flexeril] 10 mg PO HS #5 tablet 11/09/16 Cyclobenzaprine [Flexeril] 10 mg PO BID PRN #10 tablet 02/19/17 Ibuprofen 800 mg PO QID PRN #20 tablet 02/19/17 predniSONE [PredniSONE] 40 mg PO DAILY #10 tablet 02/19/17 Allergies Allergy/AdvReac Type Severity Reaction Status Date / Time No Known Allergies Allergy Verified 02/22/17 17:38 All systems ED: reviewed and negative except as stated. Review of Systems: As Per HPI Constitutional: Denies: fever, chills Eyes: Denies: eye pain ENT ED: Denies: ear pain Cardiovascular: Denies: chest pain, palpitations Respiratory: Denies: cough, dyspnea Gastrointestinal: Reports: as per HPI, abdominal pain, nausea. Denies: vomiting , diarrhea Genitourinary: Reports: as per HPI (retention), other Musculoskeletal: Denies: back pain, neck pain Integumentary: Denies: rash Neurological: Denies: headache Past Medical History - Past Medical History Attestation: Yes The following information was validated with the patient. Source: patient Medical history: Reports: arthritis, asthma, cardiomyopathy, CHF, COPD, coronary artery disease, CVA, diabetes, GERD, hyperlipidemia, hypertension, myocardial infarction, peripheral artery disease, other Surgical history: Reports: angioplasty/stent, cholecystectomy, herniorrhaphy, knee replacement, orthopedic, other, other Psychiatric history: Reports: anxiety, depression, other - Social History Smoking Status: Current every day smoker Smokeless Tobacco Status: No Alcohol use: Reports: none Drug use: Reports: none Physical Exam Constitutional: Appears moderately uncomfortable. Mildly tachycardic Eyes: PERRLA, sclera anicteric ENT & Mouth: MM dry Neck: normal inspection, neck is supple Resp: CTA bilaterally, no resp distress CV: tachycardic, no m/g/r GI: normal inspection, soft, +suprapubic abdominal pain moderate boggy abdomen, no guarding or rigidity : circumcised, leaking urine no massess no hernias Neuro: A&O3, CNII-XII grossly intact, MALCOLM Skin: on limited exam, skin intact with no rashes or lesions - General General appearance: alert, in no apparent distress Course Course Narrative: 61-year-old male with concern for urinary retention, history of bladder mass, I did evaluate patient performed a bedside ultrasound that showed a postvoid residual of 280 mL, patient also has evidence on ultrasound of the bladder mass , plan is for CT scan basic lab work fluid rehydration, patient did feel somewhat better after the Portillo but I suspect urinary retention in the setting of possible metastatic disease if he does have an undiagnosed or been worked up mass, with previous urology and surgical input would be appreciated patient may be admitted for definitive management, - Reevaluation(s) Reevaluation #1: Patient was reevaluated, after placement of Portillo catheter, he continued to have nausea and lower abdominal pain, full workup was added his blood sugar showed up at 756, patient had additional labs ordered, repeat BMP was ordered, additional liter and half fluid was ordered the patient was given additional pain medication as he continued to have lower abdominal pain 10 out of 10. He had a total of 31 mg doses of Dilaudid, he got 2 half liters of fluid additional liter of fluid was ordered. I spoke with the hospitalist Dr. Ball, who agreed to accept the patient. Time: 18:10 Vital Signs Temperature 97.4 F L 03/01/17 13:40 Pulse Rate 108 03/01/17 13:40 Respiratory Rate 18 03/01/17 13:40 Blood Pressure 174/92 03/01/17 13:40 O2 Sat by Pulse Oximetry 99 03/01/17 13:40 Temperature 97.4 F L 03/01/17 13:40 Pulse Rate 90 03/01/17 17:20 Respiratory Rate 14 03/01/17 17:20 Blood Pressure 137/77 03/01/17 17:20 O2 Sat by Pulse Oximetry 93 03/01/17 17:20 Oxygen Delivery Oxygen Delivery Room Air Urogenital-Male - Differential Diagnosis Likely: urinary tract infection, priapism, acute urinary retention - Medical Records Medical records reviewed: Yes I reviewed the patient's medical records. - Lab Data Lab results reviewed: Yes I reviewed the patient's lab results. Result diagrams: 03/01/17 14:40 03/01/17 17:21 Lab Results 03/01/17 03/01/17 03/01/17 Range/Units 14:09 14:40 14:40 WBC 8.4 (4.3-11.1) K/mcL RBC 4.30 (4.19-5.50) M/mcL Hgb 13.7 (12.9-16.9) g/dL Hct 40.2 (37.5-50.1) % MCV 93.5 (83.0-100.0) fL MCH 31.9 (28.0-33.3) pg MCHC 34.1 (31.6-35.5) g/dL RDW 13.3 (11.5-14.5) % Plt Count 301 (140-400) K/mcL MPV 9.0 L (9.4-12.4) fL Immature Gran % 0.6 (0-4) % Seg Neutrophils % 87.2 % Lymphocytes % 11.0 % Monocytes % 0.7 % Eosinophils % 0.1 % Basophils % 0.4 % Neutrophils # 7.4 (1.6-8.9) K/mcL Lymphocytes # 0.9 (0.6-4.6) K/mcL Monocytes # 0.1 (0.0-1.3) K/mcL Eosinophils # 0.0 (0.0-0.6) K/mcL Basophils # 0.0 (0.0-0.2) K/mcL Immature Plt Fraction 2.0 (1.1-6.1) % PT (9.4-12.1) Seconds INR VBG pH (7.32-7.42) pH Units VBG pCO2 (41-51) mmHg VBG pO2 (25-50) mmHg VBG HCO3 (21-27) mEq/L Sodium 127 L (136-145) mEq/L Potassium 5.8 H (3.5-5.1) mEq/L Chloride 94 L (98-107) mEq/L Carbon Dioxide 21 L (23-29) mEq/L BUN 17 (8-23) mg/dL Creatinine 1.07 (0.70-1.30) mg/dL Est GFR ( Amer) > 60 (> 60) Est GFR (Non-Af Amer) > 60 (> 60) BUN/Creatinine Ratio 16 (6-26) Glucose 756 H* (70-105) mg/dL Calculated Osmolality 302 H (280-300) Calcium 9.5 (8.6-10.3) mg/dL Total Bilirubin (0.3-1.0) mg/dL Direct Bilirubin (0.0-0.2) mg/dL Indirect Bilirubin (0.0-1.2) mg/dL AST (13-39) Units/L ALT (7-52) Units/L Alkaline Phosphatase (34-104) Units/L Troponin I (< 0.04) ng/mL Serum Total Protein (6.4-8.9) g/dL Albumin (3.5-5.7) g/dL Globulin (2.4-3.5) g/dL Albumin/Globulin Ratio (1.1-2.2) Lipase (11-82) Units/L Beta-Hydroxybutyric Acd (0.02-0.27) mmol/L Urine Color Yellow (Yellow) Urine Clarity Clear (Clear) Urine pH 6.5 (5.0-8.0) pH Units Ur Specific [place] 1.024 (1.010-1.025) Urine Protein Negative (Neg-Trace) mg/dL Urine Glucose (UA) >=1000 H (Normal) mg/dL Urine Ketones Negative (Negative) mg/dL Urine Blood Trace H (Negative) Urine Nitrite Negative (Negative) Urine Bilirubin Negative (Negative) Urine Urobilinogen Normal (Normal) mg/dL Ur Leukocyte Esterase Negative (Negative) Urine Microscopic RBC 3-5 H (0-3) per hpf Urine Microscopic WBC 0-3 (0-3) per hpf Ur Squamous Epith Cells Moderate H (None-Few) per lpf Urine Bacteria None Seen (None-Few) per hpf Hyaline Casts None Seen (None-Few) per lpf Ur Culture Indicated? NO (NO) 03/01/17 03/01/17 03/01/17 Range/Units 14:40 16:20 17:21 WBC (4.3-11.1) K/mcL RBC (4.19-5.50) M/mcL Hgb (12.9-16.9) g/dL Hct (37.5-50.1) % MCV (83.0-100.0) fL MCH (28.0-33.3) pg MCHC (31.6-35.5) g/dL RDW (11.5-14.5) % Plt Count (140-400) K/mcL MPV (9.4-12.4) fL Immature Gran % (0-4) % Seg Neutrophils % % Lymphocytes % % Monocytes % % Eosinophils % % Basophils % % Neutrophils # (1.6-8.9) K/mcL Lymphocytes # (0.6-4.6) K/mcL Monocytes # (0.0-1.3) K/mcL Eosinophils # (0.0-0.6) K/mcL Basophils # (0.0-0.2) K/mcL Immature Plt Fraction (1.1-6.1) % PT 10.1 (9.4-12.1) Seconds INR 0.9 VBG pH (7.32-7.42) pH Units VBG pCO2 (41-51) mmHg VBG pO2 (25-50) mmHg VBG HCO3 (21-27) mEq/L Sodium (136-145) mEq/L Potassium (3.5-5.1) mEq/L Chloride (98-107) mEq/L Carbon Dioxide (23-29) mEq/L BUN (8-23) mg/dL Creatinine (0.70-1.30) mg/dL Est GFR ( Amer) (> 60) Est GFR (Non-Af Amer) (> 60) BUN/Creatinine Ratio (6-26) Glucose (70-105) mg/dL Calculated Osmolality (280-300) Calcium (8.6-10.3) mg/dL Total Bilirubin 0.4 (0.3-1.0) mg/dL Direct Bilirubin 0.0 (0.0-0.2) mg/dL Indirect Bilirubin 0.4 (0.0-1.2) mg/dL AST 9 L (13-39) Units/L ALT 11 (7-52) Units/L Alkaline Phosphatase 154 H (34-104) Units/L Troponin I (< 0.04) ng/mL Serum Total Protein 7.0 (6.4-8.9) g/dL Albumin 3.9 (3.5-5.7) g/dL Globulin 3.1 (2.4-3.5) g/dL Albumin/Globulin Ratio 1.3 (1.1-2.2) Lipase 31 (11-82) Units/L Beta-Hydroxybutyric Acd 0.16 (0.02-0.27) mmol/L Urine Color (Yellow) Urine Clarity (Clear) Urine pH (5.0-8.0) pH Units Ur Specific [place] (1.010-1.025) Urine Protein (Neg-Trace) mg/dL Urine Glucose (UA) (Normal) mg/dL Urine Ketones (Negative) mg/dL Urine Blood (Negative) Urine Nitrite (Negative) Urine Bilirubin (Negative) Urine Urobilinogen (Normal) mg/dL Ur Leukocyte Esterase (Negative) Urine Microscopic RBC (0-3) per hpf Urine Microscopic WBC (0-3) per hpf Ur Squamous Epith Cells (None-Few) per lpf Urine Bacteria (None-Few) per hpf Hyaline Casts (None-Few) per lpf Ur Culture Indicated? (NO) 03/01/17 03/01/17 03/01/17 Range/Units 17:21 17:21 17:39 WBC (4.3-11.1) K/mcL RBC (4.19-5.50) M/mcL Hgb (12.9-16.9) g/dL Hct (37.5-50.1) % MCV (83.0-100.0) fL MCH (28.0-33.3) pg MCHC (31.6-35.5) g/dL RDW (11.5-14.5) % Plt Count (140-400) K/mcL MPV (9.4-12.4) fL Immature Gran % (0-4) % Seg Neutrophils % % Lymphocytes % % Monocytes % % Eosinophils % % Basophils % % Neutrophils # (1.6-8.9) K/mcL Lymphocytes # (0.6-4.6) K/mcL Monocytes # (0.0-1.3) K/mcL Eosinophils # (0.0-0.6) K/mcL Basophils # (0.0-0.2) K/mcL Immature Plt Fraction (1.1-6.1) % PT (9.4-12.1) Seconds INR VBG pH 7.30 L (7.32-7.42) pH Units VBG pCO2 52 H (41-51) mmHg VBG pO2 38 (25-50) mmHg VBG HCO3 25 (21-27) mEq/L Sodium 128 L (136-145) mEq/L Potassium 5.9 H (3.5-5.1) mEq/L Chloride 98 (98-107) mEq/L Carbon Dioxide 23 (23-29) mEq/L BUN 15 (8-23) mg/dL Creatinine 0.96 (0.70-1.30) mg/dL Est GFR ( Amer) > 60 (> 60) Est GFR (Non-Af Amer) > 60 (> 60) BUN/Creatinine Ratio 16 (6-26) Glucose 603 H* (70-105) mg/dL Calculated Osmolality 295 (280-300) Calcium 9.1 (8.6-10.3) mg/dL Total Bilirubin (0.3-1.0) mg/dL Direct Bilirubin (0.0-0.2) mg/dL Indirect Bilirubin (0.0-1.2) mg/dL AST (13-39) Units/L ALT (7-52) Units/L Alkaline Phosphatase (34-104) Units/L Troponin I < 0.03 (< 0.04) ng/mL Serum Total Protein (6.4-8.9) g/dL Albumin (3.5-5.7) g/dL Globulin (2.4-3.5) g/dL Albumin/Globulin Ratio (1.1-2.2) Lipase (11-82) Units/L Beta-Hydroxybutyric Acd (0.02-0.27) mmol/L Urine Color (Yellow) Urine Clarity (Clear) Urine pH (5.0-8.0) pH Units Ur Specific [place] (1.010-1.025) Urine Protein (Neg-Trace) mg/dL Urine Glucose (UA) (Normal) mg/dL Urine Ketones (Negative) mg/dL Urine Blood (Negative) Urine Nitrite (Negative) Urine Bilirubin (Negative) Urine Urobilinogen (Normal) mg/dL Ur Leukocyte Esterase (Negative) Urine Microscopic RBC (0-3) per hpf Urine Microscopic WBC (0-3) per hpf Ur Squamous Epith Cells (None-Few) per lpf Urine Bacteria (None-Few) per hpf Hyaline Casts (None-Few) per lpf Ur Culture Indicated? (NO) - Radiology Data Radiology results reviewed: Yes I reviewed the patient's radiology results. Abdomen/Pelvis CT 03/01/17 14:27 IMPRESSION: No acute findings. The lobulated mass projecting into the lumen of the bladder is stable and felt to be related to the prostate D/ / William San MD / William San MD Interpreting Provider: William San MD - EKG Data EKG attestation: Yes I reviewed and interpreted this EKG. EKG shows normal: sinus rhythm Rate: tachycardia (94 bpm CO 147 QRS 97 QTC [address] segment elevations or depressions.) Rhythm: NSR Interpretation: unchanged when compared to prior tracing (date) - Core Measures AMI Core Measures Followed: No
[2017-03-01] MEDS ORDERED: *HR* OxyCODONE/APAP 5/325 TABLET PO ONE (13:59)
[2017-03-01 14:23] LABS: Bilirubin,Urine Negative (Negative); Blood,Urine Trace (Negative); Clarity,Urine Clear (Clear); Color,Urine Yellow (Yellow); Glucose,Urine (UA) >=1000 mg/dL (Normal); Ketones,Urine Negative (Negative); Leukocyte Esterase,Urine Negative (Negative); Nitrite,Urine Negative (Negative); PH,Urine 6.5 pH Units (5.0-8.0); Protein,Urine Negative (Neg-Trace); Specific Gravity,Urine 1.024 (1.010-1.025); Urobilinogen,Urine Normal (Normal)
[2017-03-01 14:25] LABS: Bacteria,Urine None Seen per hpf (None-Few); Hyaline Casts,Urine None Seen per lpf (None-Few); Squamous Epithelial Cell,Urine Moderate per lpf (None-Few); WBC,Urine 0-3 per hpf (0-3)
[2017-03-01] MEDS ORDERED: 0.9 % Sodium Chloride 500 ML IVC ONE (14:26)
[2017-03-01] MEDS ORDERED: Ondansetron 4 MG/2 ML VIAL IVP ONE ×2 (14:29→19:04)
[2017-03-01] MEDS ORDERED: *HR* HYDROmorphone (PF) 1 MG/ML SYRINGE IVP ONE ×2 (14:29→16:04)
[2017-03-01] MEDS ORDERED: 0.9 % Sodium Chloride 1,000 ML IVC ONE ×2 (14:37→16:43)
[2017-03-01 14:47] LABS: Basophils % 0.4 %; Eosinophils % 0.1 %; Hematocrit 40.2 % (37.5-50.1); Hemoglobin 13.7 g/dL (12.9-16.9); Immature Granulocytes % 0.6 % (0-4); Lymphocytes # 0.9 K/mcL (0.6-4.6); Mean Corpuscular HGB Conc 34.1 g/dL (31.6-35.5); Mean Corpuscular Hemoglobin 31.9 pg (28.0-33.3); Mean Corpuscular Volume 93.5 fL (83.0-100.0); Monocytes # 0.1 K/mcL (0.0-1.3); Monocytes % 0.7 %; Neutrophils # 7.4 K/mcL (1.6-8.9); Platelet Count 301 K/mcL (140-400); Red Cell Distribution Width 13.3 % (11.5-14.5); Segmented Neutrophils % 87.2 %
[2017-03-01 15:26] LABS: Albumin 3.9 g/dL (3.5-5.7); Albumin/Globulin Ratio 1.3 (1.1-2.2); Bilirubin,Indirect 0.4 mg/dL (0.0-1.2); Bilirubin,Total 0.4 mg/dL (0.3-1.0); Globulin 3.1 g/dL (2.4-3.5)
[2017-03-01 15:45] LABS: BUN/Creatinine Ratio 16 (6-26); Blood Urea Nitrogen 17 mg/dL (8-23); Calcium 9.5 mg/dL (8.6-10.3); Carbon Dioxide 21 mEq/L (23-29); Chloride 94 mEq/L (98-107); Glucose 756 mg/dL (70-105); Osmolality,Calculated 302 (280-300); Potassium 5.8 mEq/L (3.5-5.1); Sodium 127 mEq/L (136-145); eGFR For African Americans > 60 (> 60); eGFR For Non-African Americans > 60 (> 60)
[2017-03-01 16:30] LABS: INR 0.9; Prothrombin Time 10.1 Seconds (9.4-12.1)
[2017-03-01] MEDS ORDERED: Insulin Human Regular 100 UNIT in 0.9 % Sodium Chloride 100 ML IVC SCH ×2 (16:45→18:15)
[2017-03-01] MEDS ORDERED: Calcium Gluconate 1,000 MG in D5% in Water 100 ML IVPB ONE (16:59)
[2017-03-01] MEDS ORDERED: Sodium Bicarbonate 50 MEQ/50 ML VIAL IVP ONE (16:59)
[2017-03-01] MEDS ORDERED: *HR* HYDROmorphone 2 MG/ML SYRINGE IVP ONE (17:05)
[2017-03-01] MEDS ORDERED: Nitroglycerin 0.4 MG TAB.SUBL SL PRN (17:20)
--- NOTE | 2017-03-01 17:21 | Event Note ---
Date of Encounter: 03/01/17 Time of Encounter: 17:18 Patient seen and examined with POLICE JUDGE. hyperglycemic hyperosmolar state due to pain , missing insulin doses in periods of decreased PO intake. Will hydrate and give insulin drip. Plan to decrease sugar no faster than 75 gm/dL/h. He has a bladder mass that has not been biopsied yet due to technical issues according to patient. Will consult urology for further input. Symptomatic treatment for pain. He is full code.
[2017-03-01 17:41] LABS: VBG HCO3 25 mEq/L (21-27); VBG PCO2 52 mmHg (41-51); VBG PO2 38 mmHg (25-50)
[2017-03-01 17:52] LABS: BUN/Creatinine Ratio 16 (6-26); Blood Urea Nitrogen 15 mg/dL (8-23); Calcium 9.1 mg/dL (8.6-10.3); Carbon Dioxide 23 mEq/L (23-29); Chloride 98 mEq/L (98-107); Glucose 603 mg/dL (70-105); Osmolality,Calculated 295 (280-300); Potassium 5.9 mEq/L (3.5-5.1); Sodium 128 mEq/L (136-145); eGFR For African Americans > 60 (> 60); eGFR For Non-African Americans > 60 (> 60)
[2017-03-01] MEDS ORDERED: *HR* HYDROmorphone (PF) 1 MG/ML SYRINGE IVP PRN (17:56)
[2017-03-01] MEDS ORDERED: Acetaminophen 325 MG TABLET PO PRN (17:56)
[2017-03-01] MEDS ORDERED: Naloxone 0.4 MG/ML INJ IVP PRN (17:56)
[2017-03-01] MEDS ORDERED: *HR* HYDROcodone/Acet 5/325 mg TABLET PO PRN (17:56)
[2017-03-01] MEDS ORDERED: *HR* Dextrose 50 % in Water (Syg) 50 ML SYRINGE IVP PRN (18:05)
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
[2017-03-01 19:11] LABS: Amphetamine Screen,Urine Negative ng/mL (Cutoff=1000); Barbiturate Screen,Urine Negative ng/mL (Cutoff=200); Benzodiazepines Screen,Urine Positive ng/mL (Cutoff=200); Cannabinoid Screen,Urine Negative ng/mL (Cutoff = 50); Cocaine Screen,Urine Negative ng/mL (Cutoff= 300); Opiate Screen,Urine Negative ng/mL (Cutoff=300); Phencyclidine Screen,Urine Negative ng/mL (Cutoff=25)
[2017-03-01] MEDS ORDERED: NON-FORMULARY MEDICATION 1 EACH EACH (Insulin Glargine [Lantus] 45 UNIT) SQ SCH (21:00)
[2017-03-01] MEDS: *HR* HYDROmorphone (PF) 1 MG/ML SYRINGE IVP PRN (21:32)
[2017-03-01] MEDS: 0.9 % Sodium Chloride 1,000 ML IVC SCH (21:32)
[2017-03-01] MEDS: Budesonide/Formoterol 160/4.5 MDI IH SCH (22:35)
[2017-03-01] MEDS: ALPRAZolam 0.5 MG TABLET PO SCH (23:48)
[2017-03-01] MEDS: Gabapentin 400 MG CAPSULE PO SCH (23:48)
[2017-03-01] MEDS: Pantoprazole 40 MG VIAL IVP SCH (23:48)
[2017-03-02 00:27] LABS: BUN/Creatinine Ratio 15 (6-26); Blood Urea Nitrogen 12 mg/dL (8-23); Calcium 9.7 mg/dL (8.6-10.3); Carbon Dioxide 24 mEq/L (23-29); Chloride 106 mEq/L (98-107); Glucose 226 mg/dL (70-105); Osmolality,Calculated 289 (280-300); Potassium 3.8 mEq/L (3.5-5.1); Sodium 136 mEq/L (136-145); eGFR For African Americans > 60 (> 60); eGFR For Non-African Americans > 60 (> 60)
[2017-03-02] MEDS ORDERED: *HR* Dextrose 50 % in Water (Syg) 50 ML SYRINGE IVP PRN (00:55)
[2017-03-02] MEDS ORDERED: Dextrose Gel 15 GM/37.5 ML TUBE PO PRN ×2 (00:55)
[2017-03-02] MEDS: *HR* HYDROmorphone (PF) 1 MG/ML SYRINGE IVP PRN ×3 (03:48→14:04)
[2017-03-02 04:37] LABS: Basophils # 0.1 K/mcL (0.0-0.2); Basophils % 0.4 %; Eosinophils # 0.2 K/mcL (0.0-0.6); Eosinophils % 1.1 %; Hematocrit 42.2 % (37.5-50.1); Hemoglobin 13.8 g/dL (12.9-16.9); Immature Granulocytes % 0.5 % (0-4); Lymphocytes # 3.4 K/mcL (0.6-4.6); Mean Corpuscular HGB Conc 32.7 g/dL (31.6-35.5); Mean Corpuscular Hemoglobin 31.2 pg (28.0-33.3); Mean Corpuscular Volume 95.3 fL (83.0-100.0); Monocytes # 1.2 K/mcL (0.0-1.3); Monocytes % 8.4 %; Neutrophils # 8.9 K/mcL (1.6-8.9); Platelet Count 264 K/mcL (140-400); Red Blood Count 4.43 M/mcL (4.19-5.50); Red Cell Distribution Width 13.6 % (11.5-14.5); Segmented Neutrophils % 64.6 %
[2017-03-02 04:42] LABS: Hemoglobin A1C 12.7 %
[2017-03-02] MEDS: Insulin DETEMIR 100 UNIT/ML X5UNITS SQ SCH ×2 (04:44→21:54)
[2017-03-02 05:00] LABS: Alanine Aminotransferase 8 Units/L (7-52); Albumin 3.6 g/dL (3.5-5.7); Albumin/Globulin Ratio 1.4 (1.1-2.2); Alkaline Phosphatase 122 Units/L (34-104); Aspartate Amino Transferase 9 Units/L (13-39); BUN/Creatinine Ratio 15 (6-26); Bilirubin,Total 0.3 mg/dL (0.3-1.0); Blood Urea Nitrogen 12 mg/dL (8-23); Calcium 9.3 mg/dL (8.6-10.3); Carbon Dioxide 23 mEq/L (23-29); Chloride 109 mEq/L (98-107); Chol/HDL Ratio 5.6 (0-4.9); Cholesterol 256 mg/dL (< 200); Globulin 2.6 g/dL (2.4-3.5); Glucose 152 mg/dL (70-105); HDL Cholesterol 46 mg/dL (40-59); LDL Cholesterol,Calculated 154 mg/dL (0-99); Magnesium 1.9 mg/dL (1.6-2.6); Osmolality,Calculated 291 (280-300); Potassium 4.2 mEq/L (3.5-5.1); Sodium 139 mEq/L (136-145); Total Protein 6.2 g/dL (6.4-8.9); Triglycerides 282 mg/dL (< 150); eGFR For African Americans > 60 (> 60); eGFR For Non-African Americans > 60 (> 60)
[2017-03-02] MEDS: 0.9 % Sodium Chloride 1,000 ML IVC SCH (05:55)
[2017-03-02] MEDS: Metoprolol XL (24 HR) Succ 50 MG TAB.ER.24H PO SCH (08:12)
[2017-03-02] MEDS: Insulin LISPRO 300 UNITS/3 ML VIAL SQ SCH ×4 (08:12→21:55)
[2017-03-02] MEDS: Aspirin 81 MG TAB.CHEW PO SCH (08:12)
[2017-03-02] MEDS: Gabapentin 400 MG CAPSULE PO SCH ×3 (08:13→21:54)
[2017-03-02] MEDS: Pantoprazole 40 MG VIAL IVP SCH (08:13)
[2017-03-02] MEDS: ALPRAZolam 0.5 MG TABLET PO SCH ×2 (08:13→21:55)
[2017-03-02] MEDS: Budesonide/Formoterol 160/4.5 MDI IH SCH ×2 (08:19→20:41)
[2017-03-02] MEDS ORDERED: predniSONE 20 MG TABLET PO SCH ×2 (09:00)
[2017-03-02] MEDS ORDERED: Furosemide 20 MG/2 ML VIAL IVP ONE (09:20)
--- NOTE | 2017-03-02 09:21 | Internal Med Progress Note ---
<Alex Mcghee - Last Filed: 03/02/17 15:31> Date of Encounter: 03/02/17 Time of Encounter: 09:00 - Assessment and plan (1) Acute respiratory failure with hypoxia Current Visit: Yes Status: Acute Assessment and plan: - With noted desaturation to high 80s despite of being on 5L oxygen. Patient is not using oxygen at home. - Likely multifactorial including pneumonia and pulmonary edema from volume overload in the setting of underlying diastolic CHF and COPD. - Antibiotics for pneumonia. - Diuresis for diastolic CHF. - Symbicort and bronchodilators for COPD. - Continue supplemental oxygen and consider non-invasive ventilation if patient' s respiratory status deteriorates. - Continue close monitoring. (2) Pneumonia Current Visit: Yes Status: Acute Assessment and plan: - CXR on 03/02/17 found new patchy airspace opacities within the mid to lower lungs bilaterally with a more focal 3.5 cm rounded opacity in the retrocardiac region suspicious for pneumonia. - Obtain sputum culture if possible and check respiratory infection panel, urine antigens for Strept. pneumoniae and Legionella. - Start IV ceftriaxone and azithromycin. Qualifiers: Pneumonia type: due to unspecified organism Laterality: bilateral Lung location: lower lobe of lung Qualified Code(s): J18.9 - Pneumonia, unspecified organism (3) Diastolic heart failure Current Visit: Yes Status: Chronic Assessment and plan: - Echo on 05/12/16 found LVEF 50-55% with evidence of mild diastolic dysfunction of the left ventricle. - Net +[id number] since admission. Associated pulmonary edema/volume overload likely contribute to patient's current hypoxic respiratory failure. - Will discontinue IV fluid and give one does of Lasix IV 20 mg. - Strict I/O and daily weight. - Consider further diuresis if patient's respiratory failure persists. Qualifiers: Heart failure chronicity: chronic Qualified Code(s): I50.32 - Chronic diastolic (congestive) heart failure (4) Bladder mass Current Visit: Yes Status: Chronic Assessment and plan: - CT A/P on 03/01/17 found the lobulated mass, likely from prostate, projecting into the lumen of the bladder. Stable compared to prior imagings. - Likely contributing patient's urinary retention and incontinence. - Continue urinary catheter. - Urology consulted and appreciate evaluation and possible intervention. (5) Diabetes mellitus type 2 in nonobese Current Visit: No Status: Chronic Assessment and plan: - Poorly controlled diabetes with Hgb A1C 12.7. - Highly elevated glucose (756) on admission is likely secondary to prednisone use. - Better controlled with glucose 152 this morning. - Continue basal and sliding scale insulin with glucose monitoring. (6) Chest wall pain Current Visit: No Status: Acute Assessment and plan: - Likely secondary to cough and/or recent trauma from fall. - Continue prn pain control. (7) Hyperkalemia Current Visit: Yes Status: Acute Assessment and plan: - K 5.8 on admission. - Resolves as K 4.2 today. (8) Hyponatremia Current Visit: Yes Status: Acute Assessment and plan: - Na 127 on admission. - Resolves as Na 139 today. (9) COPD (chronic obstructive pulmonary disease) Current Visit: No Status: Chronic Assessment and plan: - Patient likely has underlying COPD given his significant smoking history. - Continue Symbicort, bronchodilator and supplemental oxygen. - Okay to discontinue prednisone given patient's current hypoxia is likely secondary to pneumonia and pulmonary edema rather than AE COPD Qualifiers: COPD type: unspecified COPD Qualified Code(s): J44.9 - Chronic obstructive pulmonary disease, unspecified (10) CAD (coronary artery disease), [place] coronary artery Current Visit: Yes Status: Chronic Assessment and plan: - Continue aspirin, Plavix, Toprol XL and Lipitor. Qualifiers: [place] vs. transplanted heart: [place] heart Associated angina: without angina Qualified Code(s): I25.10 - Atherosclerotic heart disease of [place] coronary artery without angina pectoris (11) HTN (hypertension) Current Visit: Yes Status: Chronic Assessment and plan: - BP within normal range. - Continue current antihypertensive regimen. Qualifiers: Hypertension type: essential hypertension Qualified Code(s): I10 - Essential (primary) hypertension (12) Tobacco use Current Visit: Yes Status: Acute Assessment and plan: - Patient reports smoking for more than 20 years. - Smoking cessation counseling. - Start nicotine patch. (13) DVT prophylaxis Current Visit: Yes Status: Acute Assessment and plan: - Continue EPCD as mechanical DVT prophylaxis. - Subjective Interval history: Patient was seen and examined this morning. Patient still complains of suprapubic pain. Patient has some chest wall pain aggravated by cough and reproducible by palpation. Patient denies fever, chills, shortness of breath, abdominal pain, hematuria. Per patient, he has difficulty urinating for few weeks and been using self-cath at home. Patient had one episode of urinary incontinence and that brought him to ED. Patient is aware of the presence of bladder mass. Per patient, his last visit with urology was several months ago and was told at that time he needs surgery involving multiple specialties including urology and surgery. Patient does not use oxygen at home. Patient had ED visit a week ago for a fall hitting his chest (patient denies hitting head) and per patient, he was sent home with prednisone which he has started taking 2- 3 days prior to current admission. - Constitutional Vitals: Temp Pulse Resp BP Pulse Ox 98.8 F 89 18 134/86 87 03/02/17 07:43 03/02/17 07:43 03/02/17 08:23 03/02/17 07:43 03/02/17 08:29 General appearance: Present: cooperative, A&O X 3, obese, severe distress (Pain in bladder, groin, and suprapubic area), answers questions appropriately - Head Head exam: Present: normal inspection - Eye Eye exam: Present: EOMI, conjuntiva pink, sclera anicteric - Neck Neck exam general surgery: Present: normal inspection, supple, trachea midline - Respiratory Respiratory exam: Present: chest wall tenderness, rales (Bibasilar). Absent: accessory muscle use, rhonchi, wheezes - Cardiovascular Cardiovascular exam: Present: RRR, +S1, +S2 - GI/Abdominal GI/Abdominal exam: Present: normal bowel sounds, soft, tenderness (Suprapubic pain), no peritoneal signs - Extremities Exam Extremities exam: Present: warm. Absent: cyanotic, pedal edema - Neurological Exam Neurological exam: Present: alert, oriented X3. Absent: facial droop, speech deficit - Skin Skin exam: Present: dry, warm Internal Medicine: Result - Labs CBC & Chem 7: 03/02/17 04:12 03/02/17 04:12 Labs: Short CBC 03/02/17 Range/Units 04:12 WBC 13.7 H D (4.3-11.1) K/mcL Hgb 13.8 (12.9-16.9) g/dL Hct 42.2 (37.5-50.1) % Plt Count 264 (140-400) K/mcL Neutrophils # 8.9 (1.6-8.9) K/mcL BMP 03/02/17 03/02/17 00:04 04:12 Sodium 136 139 Potassium 3.8 D 4.2 Chloride 106 109 H Carbon Dioxide 24 23 BUN 12 12 Creatinine 0.82 0.80 Glucose 226 H 152 H Calcium 9.7 9.3 Liver Function 03/02/17 Range/Units 04:12 Total Bilirubin 0.3 (0.3-1.0) mg/dL AST 9 L (13-39) Units/L ALT 8 (7-52) Units/L Alkaline Phosphatase 122 H (34-104) Units/L Albumin 3.6 (3.5-5.7) g/dL - ABG Interpretation ABG results: PT/INR, D-dimer PT 10.1 Seconds (9.4-12.1) 03/01/17 16:20 - Diagnostic Studies Chest x-ray Status: image reviewed by me Additional comments: New patchy airspace opacities within the mid to lower lungs bilaterally with a more focal 3.5 cm rounded opacity in the retrocardiac region suspicious for pneumonia Consult Discharge Plan - Plan Referrals: Cyrus Coyne DO [Primary Care Provider] - <Guanakito Treviño - Last Filed: 03/02/17 18:13> Date of Encounter: 03/02/17 - Assessment and plan (1) Acute respiratory failure with hypoxia Current Visit: Yes Status: Acute (2) Pneumonia Current Visit: Yes Status: Acute Qualifiers: Pneumonia type: due to Pneumococcus Laterality: bilateral Lung location: lower lobe of lung Qualified Code(s): J13 - Pneumonia due to Streptococcus pneumoniae (3) Urinary retention Current Visit: Yes Status: Acute (4) CAD (coronary artery disease), [place] coronary artery Current Visit: Yes Status: Chronic Qualifiers: [place] vs. transplanted heart: [place] heart Associated angina: without angina Qualified Code(s): I25.10 - Atherosclerotic heart disease of [place] coronary artery without angina pectoris (5) Diastolic heart failure Current Visit: Yes Status: Chronic Qualifiers: Heart failure chronicity: chronic Qualified Code(s): I50.32 - Chronic diastolic (congestive) heart failure (6) HTN (hypertension) Current Visit: Yes Status: Chronic Qualifiers: Hypertension type: essential hypertension Qualified Code(s): I10 - Essential (primary) hypertension (7) Diabetic neuropathy Current Visit: No Status: Chronic Qualifiers: Diabetes mellitus type: type 2 Diabetes mellitus complication detail: diabetic polyneuropathy Qualified Code(s): E11.42 - Type 2 diabetes mellitus with diabetic polyneuropathy (8) Uncontrolled diabetes mellitus Current Visit: Yes Status: Chronic Qualifiers: Diabetes mellitus type: type 2 Diabetes mellitus complication status: with hyperglycemia 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 Qualified Code(s): E11.65 - Type 2 diabetes mellitus with hyperglycemia; Z79.4 - termination clerk (current) use of insulin; Z79.4 - assisted (current) use of insulin ; Z79.4 - termination clerk (current) use of insulin; Z79.4 - termination clerk (current) use of insulin (9) Tobacco abuse Current Visit: No Status: Chronic - Constitutional Vitals: Temp Pulse Resp BP Pulse Ox 99.7 F H 93 20 96/58 94 03/02/17 16:41 03/02/17 16:41 03/02/17 16:41 03/02/17 16:41 03/02/17 16:41 Internal Medicine: Result - Labs CBC & Chem 7: 03/02/17 04:12 03/02/17 04:12 Labs: Short CBC 03/02/17 Range/Units 04:12 WBC 13.7 H D (4.3-11.1) K/mcL Hgb 13.8 (12.9-16.9) g/dL Hct 42.2 (37.5-50.1) % Plt Count 264 (140-400) K/mcL Neutrophils # 8.9 (1.6-8.9) K/mcL BMP 03/02/17 03/02/17 00:04 04:12 Sodium 136 139 Potassium 3.8 D 4.2 Chloride 106 109 H Carbon Dioxide 24 23 BUN 12 12 Creatinine 0.82 0.80 Glucose 226 H 152 H Calcium 9.7 9.3 Liver Function 03/02/17 Range/Units 04:12 Total Bilirubin 0.3 (0.3-1.0) mg/dL AST 9 L (13-39) Units/L ALT 8 (7-52) Units/L Alkaline Phosphatase 122 H (34-104) Units/L Albumin 3.6 (3.5-5.7) g/dL - ABG Interpretation ABG results: PT/INR, D-dimer PT 10.1 Seconds (9.4-12.1) 03/01/17 16:20 - Impressions Impressions Chest X-Ray 03/02/17 09:29 IMPRESSION: New patchy airspace opacities within the mid to lower lungs bilaterally with a more focal 3.5 cm rounded opacity in the retrocardiac region suspicious for pneumonia. Recommend short-term follow-up to ensure resolution. D/ : / 03/02/2017 10:46:00 Earlene Doll MD / shari Interpreting Provider: Earlene Doll MD - Attending Attestation I examined this patient and my medical decision-making was reviewed with the Resident Physician on 03/02/17. I agree with the documented findings, disposition and treatment plan as described except to the extent set forth below. Mr Craig is currently admitted for pneumococcal pneumonia and bladder outlet obstruction. He remains moderate to high risk due to potential for worsening respiratory and clinical status. Mr Craig has been having more respiratory issues today. He has increased oxygen requirements. Still with some lower abd spasm. No fever at this time. No GI issues. Exam Alert. Mod distress due to respiratory Mucus membranes dry Heart reg Lungs with rhonchi bilaterally Abd soft I/P 1. Hypoxia 2. Pneumococcal pneumonia Further diagnoses and plan as above.
--- NOTE | 2017-03-02 09:23 | Electrocardiograph Report ---
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
--- NOTE | 2017-03-02 09:37 | Electrocardiograph Report ---
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
[2017-03-02] MEDS ORDERED: Azithromycin 500 MG in D5% in Water 250 ML IVPB SCH (11:00)
[2017-03-02] MEDS ORDERED: cefTRIAXone 2,000 MG in Water for inj. (sterile) 20 ML 20 ML IVP SCH (11:00)
[2017-03-02] MEDS: Nicotine 14 MG PATCH.TD24 TD SCH (12:01)
[2017-03-02] MEDS ORDERED: *HR* Belladonna Alkaloids/Opium 30 MG RECTAL SUPPOSITORY RC PRN (12:33)
[2017-03-02 13:07] LABS: Adenovirus Not Detected (Not Detect); Bordetella Pertussis Not Detected (Not Detect); Chlamydophila pneumoniae Not Detected (Not Detect); Coronavirus 229E Not Detected (Not Detect); Coronavirus HKU1 Not Detected (Not Detect); Coronavirus NL63 Not Detected (Not Detect); Coronavirus OC43 Not Detected (Not Detect); Human Metapneumovirus Not Detected (Not Detect); Human Rhinovirus/Enterovirus Not Detected (Not Detect); Influenza A Subtype 2009 H1 Not Detected (Not Detect); Influenza A Untypeable Not Detected (Not Detect); Influenza B Not Detected (Not Detect); Mycoplasma pneumoniae Not Detected (Not Detect); Parainfluenza Virus 1 Not Detected (Not Detect); Parainfluenza Virus 2 Not Detected (Not Detect); Parainfluenza Virus 3 Not Detected (Not Detect); Parainfluenza Virus 4 Not Detected (Not Detect); Respiratory Syncytial Virus Not Detected (Not Detect)
--- NOTE | 2017-03-02 14:12 | Urology - Consult Note ---
Date of Encounter: 03/02/17 Time of Encounter: 14:10 - Assessment and Plan (1) Bladder mass Current Visit: Yes Status: Acute Assessment and plan: Patient's bladder mass is very large prostate. He has had a cystoscopy within the last year. (2) Urinary retention Current Visit: Yes Status: Acute Assessment and plan: Patient will need to continue with urinary catheter at this time. He will need to follow-up with urology 2-3 weeks after discharge for discussion of long-term management of urinary retention. Please call with further questions. Urology CN:HPI Consult date: 03/02/17 Reason for consult Urology: Other (urinary retention) Requesting physician: Cyrus Rodriguez History of present illness: Ghassan is a 61-year-old male known to the urology service for very enlarged prostate with large intravesical component. Patient was to be scheduled for suprapubic prostatectomy but it was never done. Patient was on intermittent catheterization off-and-on. Patient states that he only performed as needed. Patient has had persistent lower abdominal discomfort for the past few days. He came to the emergency department yesterday where a catheter was placed proximally 700 mL's of urine was drained. Patient immediately felt better. Patient also has been having poorly controlled diabetes with a hemoglobin A1c of greater than 12. Past Med Surg Social Fam HX - Past Medical History Medical history: arthritis, asthma, cardiomyopathy, CHF, COPD, coronary artery disease, CVA, diabetes, GERD, hyperlipidemia, hypertension, myocardial infarction, peripheral artery disease, other Psychiatric history: anxiety, depression, other - Past Surgical History Surgical History: angioplasty/stent, cholecystectomy, herniorrhaphy, knee replacement, orthopedic, other, other - Social History Smoking Status: Current every day smoker Packs per day: 1/2 PPD Smokeless Tobacco Status: No Alcohol use: none Drug use: none - Family History Mother Race: Family Member Ethnicity: Non- Living Status: Hx Family Cancer: Yes (Lung) Father Race: Family Member Ethnicity: Non- Living Status: Hx Family Cancer: Yes (Colon) Medications and Allergies Citalopram [CeleXA] 20 mg PO DAILY 10/12/15 [History] Insulin Glargine [Lantus] 45 unit SQ HS 10/12/15 [History] Metformin HCl [Metformin HCl ER] 1,000 mg PO BID 10/12/15 [History] Oxycodone HCl 15 mg PO Q4H PRN 11/15/15 [History] Zolpidem [Ambien] 10 mg PO HS 11/15/15 [History] Albuterol Sulfate [Albuterol Inhaler] 2 puff IH Q4H PRN 03/18/16 [History] Aspirin 81 mg PO DAILY 03/18/16 [History] Atorvastatin Calcium [Lipitor] 80 mg PO HS 03/18/16 [History] Budesonide/Formoterol 160/4.5 [Symbicort 160/4.5] 2 puff IH BIDR 03/18/16 [ History] Clopidogrel [Plavix] 75 mg PO DAILY 03/18/16 [History] Metoprolol Succinate 100 mg PO DAILY 03/18/16 [History] Nitroglycerin [Nitrostat] 0.4 mg SL Q5M PRN 03/18/16 [History] Cyclobenzaprine [Flexeril] 10 mg PO HS #5 tablet 11/09/16 [Rx] ALPRAZolam [Xanax 0.5 MG Tablet] 0.5 mg PO BID 11/25/16 [History] Gabapentin [Neurontin] 800 mg PO TID 11/25/16 [History] Cyclobenzaprine [Flexeril] 10 mg PO BID PRN #10 tablet 02/19/17 [Rx] Ibuprofen 800 mg PO QID PRN #20 tablet 02/19/17 [Rx] predniSONE [PredniSONE] 40 mg PO DAILY #10 tablet 02/19/17 [Rx] 3 Allergy/AdvReac Type Severity Reaction Status Date / Time No Known Allergies Allergy Verified 02/22/17 17:38 Review of Systems - Constitutional no chills - EENT Nose, mouth and throat: no dizziness - Cardiovascular no chest pain - Respiratory no cough - Gastrointestinal no abdominal pain - Genitourinary as per HPI - Musculoskeletal no back pain - Integumentary no erythema - Neurological no confusion - Psychiatric no depression - Hematologic/Lymphatic no easy bleeding Exam Initial Vital Signs Temp Pulse Resp BP Pulse Ox 97.4 F L 108 18 174/92 99 03/01/17 13:40 03/01/17 13:40 03/01/17 13:40 03/01/17 13:40 03/01/17 13:40 - General physical appearance Present: well developed, no distress - Eyes Absent: icteric - Neck Present: no lymphadenopathy - Abdomen Abdomen: Present: soft. Absent: masses - Genitourinary normal penis with no external lesions (catheter with clear urine ) - Integumentary Present: no rash - Musculoskeletal Present: normal gait Urology Results - Labs 03/02/17 04:12 03/02/17 04:12 Abnormal lab results WBC 13.7 K/mcL (4.3-11.1) H D 03/02/17 04:12 MPV 9.0 fL (9.4-12.4) L 03/02/17 04:12 VBG pH 7.30 pH Units (7.32-7.42) L 03/01/17 17:39 VBG pCO2 52 mmHg (41-51) H 03/01/17 17:39 Chloride 109 mEq/L (98-107) H 03/02/17 04:12 Glucose 152 mg/dL (70-105) H 03/02/17 04:12 POC Glucose 146 (58-89) H 03/02/17 00:39 Hemoglobin A1c 12.7 % (-5.6) H 03/02/17 04:12 AST 9 Units/L (13-39) L 03/02/17 04:12 Alkaline Phosphatase 122 Units/L (34-104) H 03/02/17 04:12 Serum Total Protein 6.2 g/dL (6.4-8.9) L 03/02/17 04:12 Triglycerides 282 mg/dL (< 150) H 03/02/17 04:12 Cholesterol 256 mg/dL (< 200) H 03/02/17 04:12 LDL Cholesterol, Calc 154 mg/dL (0-99) H 03/02/17 04:12 VLDL Cholesterol, Calc 56 mg/dL (< 31) H 03/02/17 04:12 Cholesterol/HDL Ratio 5.6 (0-4.9) H 03/02/17 04:12 Urine Glucose (UA) >=1000 mg/dL (Normal) H 03/01/17 14:09 Urine Blood Trace (Negative) H 03/01/17 14:09 Urine Microscopic RBC 3-5 per hpf (0-3) H 03/01/17 14:09 Ur Squamous Epith Cells Moderate per lpf (None-Few) H 03/01/17 14:09 U Benzodiazepines Scrn Positive ng/mL (Drhnvm=863) H 03/01/17 14:09 Diabetes panel 03/02/17 03/02/17 03/02/17 Range/Units 00:04 04:12 04:12 Sodium 136 139 (136-145) mEq/L Potassium 3.8 D 4.2 (3.5-5.1) mEq/L Chloride 106 109 H (98-107) mEq/L Carbon Dioxide 24 23 (23-29) mEq/L BUN 12 12 (8-23) mg/dL Creatinine 0.82 0.80 (0.70-1.30) mg/dL Glucose 226 H 152 H (70-105) mg/dL Hemoglobin A1c 12.7 H ( - 5.6) % Calcium 9.7 9.3 (8.6-10.3) mg/dL AST 9 L (13-39) Units/L ALT 8 (7-52) Units/L Alkaline Phosphatase 122 H (34-104) Units/L Albumin 3.6 (3.5-5.7) g/dL Triglycerides 282 H (< 150) mg/dL HDL Cholesterol 46 (40-59) mg/dL Calcium panel 03/02/17 03/02/17 Range/Units 00:04 04:12 Calcium 9.7 9.3 (8.6-10.3) mg/dL Albumin 3.6 (3.5-5.7) g/dL Pituitary panel 03/02/17 03/02/17 Range/Units 00:04 04:12 Sodium 136 139 (136-145) mEq/L Potassium 3.8 D 4.2 (3.5-5.1) mEq/L Chloride 106 109 H (98-107) mEq/L Carbon Dioxide 24 23 (23-29) mEq/L BUN 12 12 (8-23) mg/dL Creatinine 0.82 0.80 (0.70-1.30) mg/dL Glucose 226 H 152 H (70-105) mg/dL Calcium 9.7 9.3 (8.6-10.3) mg/dL Adrenal panel 03/02/17 03/02/17 Range/Units 00:04 04:12 Sodium 136 139 (136-145) mEq/L Potassium 3.8 D 4.2 (3.5-5.1) mEq/L Chloride 106 109 H (98-107) mEq/L Carbon Dioxide 24 23 (23-29) mEq/L BUN 12 12 (8-23) mg/dL Creatinine 0.82 0.80 (0.70-1.30) mg/dL Glucose 226 H 152 H (70-105) mg/dL Calcium 9.7 9.3 (8.6-10.3) mg/dL Total Bilirubin 0.3 (0.3-1.0) mg/dL AST 9 L (13-39) Units/L ALT 8 (7-52) Units/L Alkaline Phosphatase 122 H (34-104) Units/L Albumin 3.6 (3.5-5.7) g/dL All other labs normal. - Imaging CT scan - abdomen: image reviewed CT scan - pelvis: image reviewed Consult Discharge Plan - Plan Referrals: Cyrus Coyne DO [Primary Care Provider] -
[2017-03-03] MEDS: *HR* HYDROmorphone (PF) 1 MG/ML SYRINGE IVP PRN ×5 (05:22→21:43)
[2017-03-03 06:26] LABS: Alanine Aminotransferase 13 Units/L (7-52); Albumin 3.1 g/dL (3.5-5.7); Albumin/Globulin Ratio 1.1 (1.1-2.2); Alkaline Phosphatase 98 Units/L (34-104); Aspartate Amino Transferase 18 Units/L (13-39); BUN/Creatinine Ratio 25 (6-26); Bilirubin,Total 0.5 mg/dL (0.3-1.0); Blood Urea Nitrogen 21 mg/dL (8-23); Carbon Dioxide 26 mEq/L (23-29); Chloride 109 mEq/L (98-107); Globulin 2.7 g/dL (2.4-3.5); Glucose 87 mg/dL (70-105); Osmolality,Calculated 292 (280-300); Potassium 3.7 mEq/L (3.5-5.1); Sodium 140 mEq/L (136-145); Total Protein 5.8 g/dL (6.4-8.9); eGFR For African Americans > 60 (> 60); eGFR For Non-African Americans > 60 (> 60)
[2017-03-03 06:30] LABS: Basophils % 0.2 %; Eosinophils % 0.2 %; Hematocrit 36.4 % (37.5-50.1); Hemoglobin 12.3 g/dL (12.9-16.9); Immature Granulocytes % 0.8 % (0-4); Lymphocytes # 3.2 K/mcL (0.6-4.6); Lymphocytes % 15.5 %; Mean Corpuscular HGB Conc 33.8 g/dL (31.6-35.5); Mean Corpuscular Hemoglobin 31.9 pg (28.0-33.3); Mean Corpuscular Volume 94.5 fL (83.0-100.0); Mean Platelet Volume 9.3 fL (9.4-12.4); Monocytes # 0.6 K/mcL (0.0-1.3); Monocytes % 3.1 %; Neutrophils # 16.3 K/mcL (1.6-8.9); Platelet Count 264 K/mcL (140-400); Red Blood Count 3.85 M/mcL (4.19-5.50); Red Cell Distribution Width 14.1 % (11.5-14.5); Segmented Neutrophils % 80.2 %
[2017-03-03] MEDS: Insulin LISPRO 300 UNITS/3 ML VIAL SQ SCH ×4 (07:35→21:03)
[2017-03-03] MEDS: ALPRAZolam 0.5 MG TABLET PO SCH ×2 (08:55→20:56)
[2017-03-03] MEDS: *HR* OxyCODONE Immed Rel 15 MG TABLET PO PRN ×4 (08:55→20:58)
[2017-03-03] MEDS: Metoprolol XL (24 HR) Succ 50 MG TAB.ER.24H PO SCH (08:55)
[2017-03-03] MEDS: Gabapentin 400 MG CAPSULE PO SCH ×4 (08:55→20:57)
[2017-03-03] MEDS: Aspirin 81 MG TAB.CHEW PO SCH (08:55)
[2017-03-03] MEDS: Nicotine 14 MG PATCH.TD24 TD SCH (08:56)
--- NOTE | 2017-03-03 09:34 | Internal Med Progress Note ---
<Alex Mcghee - Last Filed: 03/03/17 13:53> Date of Encounter: 03/03/17 Time of Encounter: 08:15 - Assessment and plan (1) Acute respiratory failure with hypoxia Current Visit: Yes Status: Acute Assessment and plan: - With noted desaturation to high 80s despite of being on 5L oxygen on initial presentation. Patient is not using oxygen at home. - Likely multifactorial including pneumonia and/or pulmonary edema from volume overload in the setting of underlying diastolic CHF and COPD. - Improves as patient maintains acceptable oxygenation on 2L NC today. - Antibiotics for pneumonia. - Symbicort and bronchodilators for COPD. - Continue supplemental oxygen and consider non-invasive ventilation if patient' s respiratory status deteriorates. - Continue close monitoring. (2) Pneumonia Current Visit: Yes Status: Acute Assessment and plan: - CXR on 03/02/17 found new patchy airspace opacities within the mid to lower lungs bilaterally with a more focal 3.5 cm rounded opacity in the retrocardiac region suspicious for pneumonia. - Positive urine antigen for Strept. pneumonia. Negative respiratory infection panel and urine antigen for Legionella - Sputum culture preliminarily grew two types of GNR. Further identification and sensitivity pending. - Given the worsening leukocytosis today and the preliminary finding on sputum culture, will switch antibiotic regimen to IV levofloxacin and Zosyn for board coverage (including Pseudomonas). - Continue to monitor closely. Qualifiers: Pneumonia type: due to Pneumococcus Laterality: bilateral Lung location: lower lobe of lung Qualified Code(s): J13 - Pneumonia due to Streptococcus pneumoniae (3) Bladder mass Current Visit: Yes Status: Chronic Assessment and plan: - CT A/P on 03/01/17 found the lobulated mass, likely from prostate, projecting into the lumen of the bladder. Stable compared to prior imagings. - Likely contributing patient's urinary retention and incontinence. - Per urology, the bladder mass is very large prostate and patient needs urology follow-up 2-3 weeks after discharge. - Continue urinary catheter as recommended by urology. (4) Diastolic heart failure Current Visit: Yes Status: Chronic Assessment and plan: - Echo on 05/12/16 found LVEF 50-55% with evidence of mild diastolic dysfunction of the left ventricle. - Net +[id number] since admission. Associated pulmonary edema/volume overload may contribute to patient's current hypoxic respiratory failure. - No diuresis at this time given borderline-low blood pressure at this time. - Strict I/O and daily weight. Qualifiers: Heart failure chronicity: chronic Qualified Code(s): I50.32 - Chronic diastolic (congestive) heart failure (5) Diabetes mellitus type 2 in nonobese Current Visit: No Status: Chronic Assessment and plan: - Poorly controlled diabetes with Hgb A1C 12.7. - Highly elevated glucose (756) on admission is likely secondary to prednisone use. - Better controlled with glucose 87 this morning. - Continue basal and sliding scale insulin with glucose monitoring. (6) Chest wall pain Current Visit: No Status: Acute Assessment and plan: - Likely secondary to cough and/or recent trauma from fall. - Continue prn pain control. (7) Hyperkalemia Current Visit: Yes Status: Acute Assessment and plan: - K 5.8 on admission. - Resolves as K 3.7 today. (8) Hyponatremia Current Visit: Yes Status: Acute Assessment and plan: - Na 127 on admission. - Resolves as Na 140 today. (9) COPD (chronic obstructive pulmonary disease) Current Visit: No Status: Chronic Assessment and plan: - Patient likely has underlying COPD given his significant smoking history. - Continue Symbicort, bronchodilator and supplemental oxygen. Qualifiers: COPD type: unspecified COPD Qualified Code(s): J44.9 - Chronic obstructive pulmonary disease, unspecified (10) CAD (coronary artery disease), [place] coronary artery Current Visit: Yes Status: Chronic Assessment and plan: - Continue aspirin, Plavix, Toprol XL and Lipitor. Qualifiers: [place] vs. transplanted heart: [place] heart Associated angina: without angina Qualified Code(s): I25.10 - Atherosclerotic heart disease of [place] coronary artery without angina pectoris (11) Tobacco use Current Visit: Yes Status: Acute Assessment and plan: - Patient reports smoking for more than 20 years. - Smoking cessation counseling. - Continue nicotine patch. (12) DVT prophylaxis Current Visit: Yes Status: Acute Assessment and plan: - Start SQ heparin. - Subjective Interval history: Patient was seen and examined this morning. Patient still has some suprapubic pain but reports breathing and cough improve compared to yesterday. Patient denies fever, chills, chest pain. Patient likes to go home today. I explained to patient that he still need to be closely monitored and managed in the hospital given he still needs oxygen (6L this morning, compared to no oxygen need at home) and pending sputum culture result. Patient expressed his understanding and eventually agreed to stay. . - Constitutional Vitals: Temp Pulse Resp BP Pulse Ox 97.5 F L 83 16 117/66 92 03/03/17 07:24 03/03/17 09:02 03/03/17 07:24 03/03/17 09:02 03/03/17 09:02 General appearance: Present: cooperative, A&O X 3, obese, severe distress (Pain in bladder, groin, and suprapubic area), answers questions appropriately - Head Head exam: Present: normal inspection - Eye Eye exam: Present: EOMI, conjuntiva pink, sclera anicteric - Neck Neck exam general surgery: Present: normal inspection, supple, trachea midline - Respiratory Respiratory exam: Present: rales (Bibasilar, improved compared to yesterday.). Absent: accessory muscle use - Cardiovascular Cardiovascular exam: Present: RRR, +S1, +S2 - GI/Abdominal GI/Abdominal exam: Present: normal bowel sounds, soft, no peritoneal signs. Absent: tenderness - Extremities Exam Extremities exam: Present: pedal edema (Mild), warm. Absent: cyanotic - Neurological Exam Neurological exam: Present: alert. Absent: facial droop, speech deficit - Skin Skin exam: Present: dry, warm Internal Medicine: Result - Labs CBC & Chem 7: 03/03/17 05:44 03/03/17 05:44 Labs: Short CBC 03/03/17 Range/Units 05:44 WBC 20.4 H (4.3-11.1) K/mcL Hgb 12.3 L D (12.9-16.9) g/dL Hct 36.4 L (37.5-50.1) % Plt Count 264 (140-400) K/mcL Neutrophils # 16.3 H (1.6-8.9) K/mcL BMP 03/03/17 05:44 Sodium 140 Potassium 3.7 Chloride 109 H Carbon Dioxide 26 BUN 21 Creatinine 0.83 Glucose 87 Calcium 9.0 Liver Function 03/03/17 Range/Units 05:44 Total Bilirubin 0.5 (0.3-1.0) mg/dL AST 18 (13-39) Units/L ALT 13 (7-52) Units/L Alkaline Phosphatase 98 (34-104) Units/L Albumin 3.1 L (3.5-5.7) g/dL - ABG Interpretation ABG results: PT/INR, D-dimer PT 10.1 Seconds (9.4-12.1) 03/01/17 16:20 - Impressions Impressions Chest X-Ray 03/02/17 09:29 IMPRESSION: New patchy airspace opacities within the mid to lower lungs bilaterally with a more focal 3.5 cm rounded opacity in the retrocardiac region suspicious for pneumonia. Recommend short-term follow-up to ensure resolution. D/ : / 03/02/2017 10:46:00 Earlene Doll MD / shari Interpreting Provider: Earlene Doll MD Consult Discharge Plan - Plan Referrals: Cyrus Coyne DO [Primary Care Provider] - 03/10/17 1:30 pm () <Tone Elise - Last Filed: 03/03/17 18:02> Date of Encounter: 03/03/17 - Constitutional Vitals: Temp Pulse Resp BP Pulse Ox 98.7 F 85 16 117/74 90 03/03/17 16:42 03/03/17 16:42 03/03/17 16:42 03/03/17 16:42 03/03/17 16:42 Internal Medicine: Result - Labs CBC & Chem 7: 03/03/17 05:44 03/03/17 05:44 Labs: Short CBC 03/03/17 Range/Units 05:44 WBC 20.4 H (4.3-11.1) K/mcL Hgb 12.3 L D (12.9-16.9) g/dL Hct 36.4 L (37.5-50.1) % Plt Count 264 (140-400) K/mcL Neutrophils # 16.3 H (1.6-8.9) K/mcL BMP 03/03/17 05:44 Sodium 140 Potassium 3.7 Chloride 109 H Carbon Dioxide 26 BUN 21 Creatinine 0.83 Glucose 87 Calcium 9.0 Liver Function 03/03/17 Range/Units 05:44 Total Bilirubin 0.5 (0.3-1.0) mg/dL AST 18 (13-39) Units/L ALT 13 (7-52) Units/L Alkaline Phosphatase 98 (34-104) Units/L Albumin 3.1 L (3.5-5.7) g/dL - ABG Interpretation ABG results: PT/INR, D-dimer PT 10.1 Seconds (9.4-12.1) 03/01/17 16:20 - Attending Attestation I examined this patient and my medical decision-making was reviewed with the Resident Physician Dr. Mcghee. I agree with the documented findings, disposition and treatment plan as described except to the extent set forth below. This is a 61 y/o M known bladder mass, urinary incontinence pt admitted here for acute hypoxic resp failure, pneumonia. He is still on 4 lit O2. Does c/o severe pain in his lower abdomen / supra pubic region. Gen: Mild distress with pain..A,A, O x3 Chest: Diminished BS b/l,, mild rales. Moderate wheezing Hear; S1 S2 + a/p 1. Acute hypoxic resp failure 2. Pneumonia - mostly bacterial WBC started trending up will broaden the abx overage Levaquin + Zosyn since he does have moderate wheezing started him on low dose steroids duoneb 3. Bladder mass / intractable lower abdomen pain mostly due to bladder spasms consulted urology for further eval inc IV narcotic freq need high level care and close monitoring since he is high risk for septic shock and resp failure
[2017-03-03] MEDS: Levofloxacin 750 MG/150 ML 750 MG/150 ML BAG IVPB SCH (10:02)
[2017-03-03] MEDS: Budesonide/Formoterol 160/4.5 MDI IH SCH ×2 (11:31→19:45)
[2017-03-03] MEDS: Piperacillin/Tazobactam 3.375 GM/200 ML BAG IVPB SCH ×2 (13:57→21:03)
[2017-03-03] MEDS ORDERED: Furosemide 40 MG/4 ML VIAL IVP ONE (15:27)
[2017-03-03] MEDS ORDERED: MethylPREDNISolone 40 MG/ML VIAL IVP SCH (16:00)
[2017-03-03] MEDS ORDERED: Hyoscyamine SL 0.125 MG TAB.SUBL SL PRN (16:53)
--- NOTE | 2017-03-03 16:53 | Urology Progress Note ---
Date of Encounter: 03/03/17 Time of Encounter: 16:51 - Assessment and Plan (1) BPH w urinary obs/LUTS Current Visit: Yes Status: Acute Assessment and plan: cath is draining well. I suspect low UO. pt may be experiencing bladder spasms. start levsin and B&O supp Progress Note Narrative: called bc low UO and pain from cath. bladder scan 140cc Objective Initial Vital Signs Temp Pulse Resp BP Pulse Ox 97.4 F L 108 18 174/92 99 03/01/17 13:40 03/01/17 13:40 03/01/17 13:40 03/01/17 13:40 03/01/17 13:40 - Additional Exam cath draining clear urine. chi SP discomfort but benign - Labs 03/03/17 05:44 03/03/17 05:44 Diabetes panel 03/03/17 Range/Units 05:44 Sodium 140 (136-145) mEq/L Potassium 3.7 (3.5-5.1) mEq/L Chloride 109 H (98-107) mEq/L Carbon Dioxide 26 (23-29) mEq/L BUN 21 (8-23) mg/dL Creatinine 0.83 (0.70-1.30) mg/dL Glucose 87 (70-105) mg/dL Calcium 9.0 (8.6-10.3) mg/dL AST 18 (13-39) Units/L ALT 13 (7-52) Units/L Alkaline Phosphatase 98 (34-104) Units/L Albumin 3.1 L (3.5-5.7) g/dL Calcium panel 03/03/17 Range/Units 05:44 Calcium 9.0 (8.6-10.3) mg/dL Albumin 3.1 L (3.5-5.7) g/dL Pituitary panel 03/03/17 Range/Units 05:44 Sodium 140 (136-145) mEq/L Potassium 3.7 (3.5-5.1) mEq/L Chloride 109 H (98-107) mEq/L Carbon Dioxide 26 (23-29) mEq/L BUN 21 (8-23) mg/dL Creatinine 0.83 (0.70-1.30) mg/dL Glucose 87 (70-105) mg/dL Calcium 9.0 (8.6-10.3) mg/dL Adrenal panel 03/03/17 Range/Units 05:44 Sodium 140 (136-145) mEq/L Potassium 3.7 (3.5-5.1) mEq/L Chloride 109 H (98-107) mEq/L Carbon Dioxide 26 (23-29) mEq/L BUN 21 (8-23) mg/dL Creatinine 0.83 (0.70-1.30) mg/dL Glucose 87 (70-105) mg/dL Calcium 9.0 (8.6-10.3) mg/dL Total Bilirubin 0.5 (0.3-1.0) mg/dL AST 18 (13-39) Units/L ALT 13 (7-52) Units/L Alkaline Phosphatase 98 (34-104) Units/L Albumin 3.1 L (3.5-5.7) g/dL Consult Discharge Plan - Plan Referrals: Cyrus Coyne DO [Primary Care Provider] - 03/10/17 1:30 pm ()
[2017-03-03] MEDS: *HR* Heparin 5,000 UNIT/ML VIAL SQ SCH (18:31)
[2017-03-03] MEDS: Insulin DETEMIR 100 UNIT/ML X5UNITS SQ SCH (21:04)
[2017-03-03 22:08] LABS: Basophils % 0.1 %; Hematocrit 36.8 % (37.5-50.1); Hemoglobin 12.3 g/dL (12.9-16.9); Immature Granulocytes % 0.7 % (0-4); Lymphocytes # 0.6 K/mcL (0.6-4.6); Lymphocytes % 2.7 %; Mean Corpuscular HGB Conc 33.4 g/dL (31.6-35.5); Mean Corpuscular Hemoglobin 31.8 pg (28.0-33.3); Mean Corpuscular Volume 95.1 fL (83.0-100.0); Monocytes # 0.2 K/mcL (0.0-1.3); Monocytes % 0.9 %; Platelet Count 282 K/mcL (140-400); Red Blood Count 3.87 M/mcL (4.19-5.50); Segmented Neutrophils % 95.6 %
[2017-03-03 22:23] LABS: BUN/Creatinine Ratio 22 (6-26); Blood Urea Nitrogen 24 mg/dL (8-23); Calcium 9.1 mg/dL (8.6-10.3); Carbon Dioxide 25 mEq/L (23-29); Chloride 103 mEq/L (98-107); Glucose 417 mg/dL (70-105); Lipase 9 Units/L (11-82); Osmolality,Calculated 300 (280-300); Potassium 4.4 mEq/L (3.5-5.1); Sodium 134 mEq/L (136-145); eGFR For African Americans > 60 (> 60); eGFR For Non-African Americans > 60 (> 60)
[2017-03-03 23:03] LABS: Alanine Aminotransferase 27 Units/L (7-52); Aspartate Amino Transferase 47 Units/L (13-39)
[2017-03-03] MEDS ORDERED: 0.9 % Sodium Chloride 1,000 ML IVC SCH (23:30)
[2017-03-04] MEDS: *HR* HYDROmorphone (PF) 1 MG/ML SYRINGE IVP PRN ×6 (00:20→20:24)
[2017-03-04] MEDS: *HR* Heparin 5,000 UNIT/ML VIAL SQ SCH ×2 (06:38→17:52)
[2017-03-04] MEDS: Piperacillin/Tazobactam 3.375 GM/200 ML BAG IVPB SCH ×3 (06:38→20:22)
[2017-03-04] MEDS: MethylPREDNISolone 40 MG/ML VIAL IVP SCH ×2 (06:39→17:52)
--- NOTE | 2017-03-04 06:54 | Event Note ---
Date of Encounter: 03/04/17 Time of Encounter: 01:00 During night pt c/o abd pain. Pt was noticed increased WBC although on zosyn. Stat CT abd pelvis and chest ordered. Results shows Portillo tube is not on right place. detacker Portillo tube and report to me 800ml more urine come out. Pt feels much better. CT also shows ileus or partial SBO. Change diet to clear liquid now, if pt tolerate well may advance gradually.
[2017-03-04 07:48] LABS: Alanine Aminotransferase 23 Units/L (7-52); Albumin 3.1 g/dL (3.5-5.7); Albumin/Globulin Ratio 1.1 (1.1-2.2); Alkaline Phosphatase 127 Units/L (34-104); Aspartate Amino Transferase 31 Units/L (13-39); BUN/Creatinine Ratio 26 (6-26); Bilirubin,Total 0.4 mg/dL (0.3-1.0); Blood Urea Nitrogen 25 mg/dL (8-23); Calcium 8.7 mg/dL (8.6-10.3); Carbon Dioxide 26 mEq/L (23-29); Chloride 104 mEq/L (98-107); Globulin 2.7 g/dL (2.4-3.5); Potassium 4.6 mEq/L (3.5-5.1); Sodium 140 mEq/L (136-145); Total Protein 5.8 g/dL (6.4-8.9); eGFR For African Americans > 60 (> 60); eGFR For Non-African Americans > 60 (> 60)
[2017-03-04] MEDS: Metoprolol XL (24 HR) Succ 50 MG TAB.ER.24H PO SCH (08:06)
[2017-03-04] MEDS: Gabapentin 400 MG CAPSULE PO SCH ×3 (08:07→20:23)
[2017-03-04] MEDS: ALPRAZolam 0.5 MG TABLET PO SCH ×2 (08:07→20:23)
[2017-03-04] MEDS: Aspirin 81 MG TAB.CHEW PO SCH (08:07)
[2017-03-04] MEDS: Insulin LISPRO 300 UNITS/3 ML VIAL SQ SCH ×4 (08:08→20:25)
[2017-03-04] MEDS: Nicotine 14 MG PATCH.TD24 TD SCH (08:10)
[2017-03-04 08:32] LABS: Glucose 235 mg/dL (70-105); Osmolality,Calculated 302 (280-300)
[2017-03-04] MEDS: Budesonide/Formoterol 160/4.5 MDI IH SCH ×2 (08:34→22:36)
--- NOTE | 2017-03-04 09:55 | Internal Med Progress Note ---
<Alex Mcghee - Last Filed: 03/04/17 15:14> Date of Encounter: 03/04/17 Time of Encounter: 08:30 - Assessment and plan (1) Acute respiratory failure with hypoxia Current Visit: Yes Status: Acute Assessment and plan: - With noted desaturation to high 80s despite of being on 5L oxygen on initial presentation. Patient is not using oxygen at home. - ABG today showed pH 7.41, pCO2 42, pO2 49 and HCO3 27. - Likely multifactorial including pneumonia and/or pulmonary edema from volume overload in the setting of underlying diastolic CHF and COPD. - Antibiotics for pneumonia. - Steroid, Symbicort and bronchodilators for COPD. - Start BiPAP for respiratory support and will recheck ABG to see if patient responses appropriately. - Continue close monitoring. (2) Pneumonia Current Visit: Yes Status: Acute Assessment and plan: - CXR on 03/02/17 found new patchy airspace opacities within the mid to lower lungs bilaterally with a more focal 3.5 cm rounded opacity in the retrocardiac region suspicious for pneumonia. - CT chest on 03/03/17 found diffuse ground-glass opacities and ground-glass nodules throughout the lungs with dependent airspace disease bilaterally. - Positive urine antigen for Strept. pneumonia. Negative respiratory infection panel and urine antigen for Legionella - Sputum culture preliminarily grew Strept. pneumoniae along with two types of GNR. Further identification and sensitivity pending. - Continue IV levofloxacin (since 03/03/17) and Zosyn (since 03/03/17) for board- spectrum coverage (including Pseudomonas). - Continue to monitor closely. Qualifiers: Pneumonia type: due to Pneumococcus Laterality: bilateral Lung location: lower lobe of lung Qualified Code(s): J13 - Pneumonia due to Streptococcus pneumoniae (3) Bladder mass Current Visit: Yes Status: Chronic Assessment and plan: - CT A/P on 03/01/17 found the lobulated mass, likely from prostate, projecting into the lumen of the bladder. Stable compared to prior imagings. - Likely contributing patient's urinary retention and incontinence. Patient's current abdominal pain is likely from bladder spasm. - Continue Levsin for bladder spasms along with narcotic for pain control. - Continue urinary catheter as recommended by urology. - Appreciate urology follow-up and recommendations. (4) COPD (chronic obstructive pulmonary disease) Current Visit: No Status: Chronic Assessment and plan: - Patient likely has underlying COPD given his significant smoking history. - Continue Solu-Medrol, Symbicort, bronchodilator and supplemental oxygen. Qualifiers: COPD type: unspecified COPD Qualified Code(s): J44.9 - Chronic obstructive pulmonary disease, unspecified (5) Diastolic heart failure Current Visit: Yes Status: Chronic Assessment and plan: - Echo on 05/12/16 found LVEF 50-55% with evidence of mild diastolic dysfunction of the left ventricle. - Net +2872 mL since admission. Associated pulmonary edema/volume overload may contribute to patient's current hypoxic respiratory failure. - Strict I/O and daily weight. Qualifiers: Heart failure chronicity: chronic Qualified Code(s): I50.32 - Chronic diastolic (congestive) heart failure (6) Diabetes mellitus type 2 in nonobese Current Visit: No Status: Chronic Assessment and plan: - Poorly controlled diabetes with Hgb A1C 12.7. - Highly elevated glucose (756) on admission is likely secondary to prednisone use. - Better controlled with glucose 235 this morning. - Continue basal and sliding scale insulin with glucose monitoring. (7) Chest wall pain Current Visit: No Status: Acute Assessment and plan: - Likely secondary to cough and/or recent trauma from fall. - Continue prn pain control. (8) Hyperkalemia Current Visit: Yes Status: Acute Assessment and plan: - K 5.8 on admission. - Resolves as K 4.6 today. (9) Hyponatremia Current Visit: Yes Status: Acute Assessment and plan: - Na 127 on admission. - Resolves as Na 140 today. (10) CAD (coronary artery disease), [place] coronary artery Current Visit: Yes Status: Chronic Assessment and plan: - Continue aspirin, Plavix, Toprol XL and Lipitor. Qualifiers: [place] vs. transplanted heart: [place] heart Associated angina: without angina Qualified Code(s): I25.10 - Atherosclerotic heart disease of [place] coronary artery without angina pectoris (11) Tobacco use Current Visit: Yes Status: Acute Assessment and plan: - Patient reports smoking for more than 20 years. - Smoking cessation counseling. - Continue nicotine patch. (12) DVT prophylaxis Current Visit: Yes Status: Acute Assessment and plan: - Continue SQ heparin. - Subjective Interval history: Patient had abdominal pain overnight. CT chest and abdomen/pelvis were ordered by nighttime physician. CT A/P showed Neville tube is not on appropriate place. Nurse advanced Neville tube and reported 800 ml more urine urine output. Patient was seen and examined this morning. Patient reports does not feel well today and the major thing bothering him is the suprapubic pain. Patient also has some pleuritic chest pain aggravated by cough. Patient reports his breathing fluctuates between good and bad. - Constitutional Vitals: Temp Pulse Resp BP Pulse Ox 98.2 F 77 16 109/65 95 03/04/17 07:09 03/04/17 08:15 03/04/17 08:34 03/04/17 07:09 03/04/17 08:34 General appearance: Present: cooperative, A&O X 3, obese, severe distress (Pain in bladder, groin, and suprapubic area), answers questions appropriately - Head Head exam: Present: normal inspection - Eye Eye exam: Present: EOMI, conjuntiva pink, sclera anicteric - Neck Neck exam general surgery: Present: normal inspection, supple, trachea midline - Respiratory Respiratory exam: Present: rales (Bibasilar), rhonchi (Bibasilar) - Cardiovascular Cardiovascular exam: Present: RRR, +S1, +S2 - GI/Abdominal GI/Abdominal exam: Present: hypoactive bowel sounds, soft, tenderness ( Suprapubic area), no peritoneal signs - Extremities Exam Extremities exam: Present: pedal edema (Mild), warm. Absent: cyanotic - Neurological Exam Neurological exam: Present: alert. Absent: facial droop, speech deficit - Skin Skin exam: Present: dry, warm Internal Medicine: Result - Labs CBC & Chem 7: 03/03/17 21:59 03/04/17 07:03 Labs: Short CBC 03/03/17 Range/Units 21:59 WBC 22.0 H (4.3-11.1) K/mcL Hgb 12.3 L (12.9-16.9) g/dL Hct 36.8 L (37.5-50.1) % Plt Count 282 (140-400) K/mcL Neutrophils # 21.0 H (1.6-8.9) K/mcL BMP 03/03/17 03/04/17 21:59 07:03 Sodium 134 L 140 Potassium 4.4 4.6 Chloride 103 104 Carbon Dioxide 25 26 BUN 24 H 25 H Creatinine 1.07 0.97 Glucose 417 H 235 H Calcium 9.1 8.7 Liver Function 03/03/17 03/04/17 Range/Units 21:59 07:03 Total Bilirubin 0.4 (0.3-1.0) mg/dL AST 47 H 31 (13-39) Units/L ALT 27 23 (7-52) Units/L Alkaline Phosphatase 127 H (34-104) Units/L Albumin 3.1 L (3.5-5.7) g/dL - ABG Interpretation ABG results: PT/INR, D-dimer PT 10.1 Seconds (9.4-12.1) 03/01/17 16:20 - Impressions Impressions Abdomen/Pelvis CT 03/04/17 23:55 IMPRESSION: 1. Dilated small bowel could represent localized ileus or partial small bowel obstruction. 2. Bilateral hydroureteronephrosis, likely secondary to a distended urinary bladder. A bladder catheter is present though the balloon is in the prostatic urethra and the catheter should be advanced 7 cm. 3. Wall thickening in the sigmoid colon could represent colitis or colon cancer. Colonoscopy is recommended. 4. Bibasilar atelectasis versus pneumonia. D/ / Huber Gonzalez MD / Huber Gonzalez MD Interpreting Provider: Huber Gonzalez MD Chest CT 03/04/17 23:55 IMPRESSION: 1. Ground-glass opacities and nodules are probably infectious or inflammatory. 2. Dependent airspace disease likely represents atelectasis. 3. Coronary artery disease. Myocardial fat deposition is nonspecific. Echocardiography could be obtained for further evaluation. D/ / Huber Gonzalez MD / Huber Gonzalez MD Interpreting Provider: Huber Gonzalez MD Consult Discharge Plan - Plan Referrals: Cyrus Coyne DO [Primary Care Provider] - 03/10/17 1:30 pm () <Tone Elise - Last Filed: 03/04/17 17:19> Date of Encounter: 03/04/17 - Constitutional Vitals: Temp Pulse Resp BP Pulse Ox 98.2 F 77 16 142/100 94 03/04/17 15:50 03/04/17 16:19 03/04/17 15:50 03/04/17 15:50 03/04/17 15:50 Internal Medicine: Result - Labs CBC & Chem 7: 03/03/17 21:59 03/04/17 07:03 Labs: Short CBC 03/03/17 Range/Units 21:59 WBC 22.0 H (4.3-11.1) K/mcL Hgb 12.3 L (12.9-16.9) g/dL Hct 36.8 L (37.5-50.1) % Plt Count 282 (140-400) K/mcL Neutrophils # 21.0 H (1.6-8.9) K/mcL BMP 03/03/17 03/04/17 21:59 07:03 Sodium 134 L 140 Potassium 4.4 4.6 Chloride 103 104 Carbon Dioxide 25 26 BUN 24 H 25 H Creatinine 1.07 0.97 Glucose 417 H 235 H Calcium 9.1 8.7 Liver Function 03/03/17 03/04/17 Range/Units 21:59 07:03 Total Bilirubin 0.4 (0.3-1.0) mg/dL AST 47 H 31 (13-39) Units/L ALT 27 23 (7-52) Units/L Alkaline Phosphatase 127 H (34-104) Units/L Albumin 3.1 L (3.5-5.7) g/dL - ABG Interpretation ABG results: ABG ABG pH 7.43 pH Units (7.32-7.45) 03/04/17 15:36 ABG pCO2 46 mmHg (35-45) H 03/04/17 15:36 ABG pO2 63 mmHg (85-104) L 03/04/17 15:36 ABG O2 Saturation 92 % (95-98) L 03/04/17 15:36 PT/INR, D-dimer PT 10.1 Seconds (9.4-12.1) 03/01/17 16:20 - Impressions Impressions Chest X-Ray 03/02/17 09:29 IMPRESSION: New patchy airspace opacities within the mid to lower lungs bilaterally with a more focal 3.5 cm rounded opacity in the retrocardiac region suspicious for pneumonia. Recommend short-term follow-up to ensure resolution. D/ : / 03/02/2017 10:46:00 Earlene Doll MD / shari Interpreting Provider: Earlene Doll MD Abdomen/Pelvis CT 03/04/17 23:55 IMPRESSION: 1. Dilated small bowel could represent localized ileus or partial small bowel obstruction. 2. Bilateral hydroureteronephrosis, likely secondary to a distended urinary bladder. A bladder catheter is present though the balloon is in the prostatic urethra and the catheter should be advanced 7 cm. 3. Wall thickening in the sigmoid colon could represent colitis or colon cancer. Colonoscopy is recommended. 4. Bibasilar atelectasis versus pneumonia. D/ / Huber Gonzalez MD / Huber Gonzalez MD Interpreting Provider: Huber Gonzalez MD Chest CT 03/04/17 23:55 IMPRESSION: 1. Ground-glass opacities and nodules are probably infectious or inflammatory. 2. Dependent airspace disease likely represents atelectasis. 3. Coronary artery disease. Myocardial fat deposition is nonspecific. Echocardiography could be obtained for further evaluation. D/ / Huber Gonzalez MD / Huber Gonzalez MD Interpreting Provider: Huber Gonzalez MD - Attending Attestation I examined this patient and my medical decision-making was reviewed with the Resident Physician Dr. Mcghee. I agree with the documented findings, disposition and treatment plan as described except to the extent set forth below. This is a 61 y/o M known bladder mass, urinary incontinence pt admitted here for acute hypoxic resp failure, pneumonia. He is still on 6 lit O2. He seems to be in more Resp distress today. His abdominal pain improved today. Gen: Mild distress..A,A, O x3 Chest: Diminished BS b/l,, mild rales. Moderate wheezing Hear; S1 S2 + a/p 1. Acute hypoxic resp failure 2. Pneumonia - mostly bacterial WBC started trending up No labs drawn today Normal Lactic acid last night CT of Chest showed worsening pneumonia Cont empirical abx Levaquin + Zosyn..Will add Vancomycin too Cont IV Steroids reviewed ABG showed hypoxia.. will cont PPV BiPAP tonight talked to pt;s family at bed side and explained to them about current critical care 3. Acute pulmonary edema due to Pneumonia started him on IV Lasix 40mg BID 4. Bladder mass / intractable lower abdomen pain due to mis placement of neville adjusted Neville last night.. now feels little better 5. Acute colitis cont empirical abx need higher level care and close monitoring since he is high risk for septic shock and resp failure
[2017-03-04] MEDS: *HR* OxyCODONE Immed Rel 15 MG TABLET PO PRN ×2 (10:01→16:04)
[2017-03-04] MEDS: Levofloxacin 750 MG/150 ML 750 MG/150 ML BAG IVPB SCH (10:37)
[2017-03-04] MEDS ORDERED: Furosemide 40 MG/4 ML VIAL ONE (11:35)
[2017-03-04] MEDS: Furosemide 40 MG/4 ML VIAL IVP SCH ×2 (11:47→17:52)
[2017-03-04 11:58] LABS: ABG Base Excess 2 mEq/L (-2 to 3); ABG HCO3 27 mEq/L (21-27); ABG Oxygen Saturation 84 % (95-98); ABG PCO2 42 mmHg (35-45); ABG PH 7.41 pH Units (7.32-7.45); ABG PO2 49 mmHg (85-104); ABG TCO2 28 mEq/L (20-26)
[2017-03-04] MEDS ORDERED: Vancomycin 1,250 MG in D5% in Water 250 ML IVPB SCH (12:00)
[2017-03-04] MEDS ORDERED: *HR* LORazepam 0.5 MG TABLET PO ONE (12:43)
--- NOTE | 2017-03-04 13:29 | Electrocardiograph Report ---
[place] [id number] Test Date: 2017-03-04 Pat Name: Ghassan Craig Department: 110 Room: 2N13 Gender: M Space Physicist: BRITTANY : 1955 Requested By: Guanakito Treviño Order Number: [id number] Reading MD: Kel Phillips Measurements Intervals [place] Rate: 78 P: 55 GA: 138 QRS: -11 QRSD: 93 T: 39 QT: 340 QTc: 373 Interpretive Statements SINUS RHYTHM LOW QRS VOLTAGE IN PRECORDIAL LEADS Electronically Signed On 03-04-2017 13:28:11 EST by Kel Phillips
[2017-03-04 15:38] LABS: ABG Base Excess 5 mEq/L (-2 to 3); ABG HCO3 30 mEq/L (21-27); ABG Oxygen Saturation 92 % (95-98); ABG PCO2 46 mmHg (35-45); ABG PH 7.43 pH Units (7.32-7.45); ABG PO2 63 mmHg (85-104); ABG TCO2 31 mEq/L (20-26); Blood Gas Modality PS; Blood Gas PEEP 6 cm H2O; Blood Gas Pressure Support 12 cm H2O
[2017-03-04] MEDS: Vancomycin 1,250 MG in D5% in Water 250 ML IVPB SCH (15:53)
[2017-03-04] MEDS: *HR* LORazepam 0.5 MG TABLET PO PRN (18:36)
[2017-03-04] MEDS: *HR* Belladonna Alkaloids/Opium 30 MG RECTAL SUPPOSITORY RC PRN (20:23)
[2017-03-04] MEDS: Insulin DETEMIR 100 UNIT/ML X5UNITS SQ SCH (20:27)
[2017-03-05] MEDS: Vancomycin 1,250 MG in D5% in Water 250 ML IVPB SCH (00:52)
[2017-03-05] MEDS: *HR* HYDROmorphone (PF) 1 MG/ML SYRINGE IVP PRN ×7 (01:00→23:03)
[2017-03-05 03:48] LABS: Basophils % 0.1 %; Hematocrit 32.7 % (37.5-50.1); Hemoglobin 11.3 g/dL (12.9-16.9); Immature Granulocytes % 0.5 % (0-4); Lymphocytes % 7.9 %; Mean Corpuscular HGB Conc 34.6 g/dL (31.6-35.5); Mean Corpuscular Hemoglobin 32.3 pg (28.0-33.3); Mean Corpuscular Volume 93.4 fL (83.0-100.0); Monocytes # 0.2 K/mcL (0.0-1.3); Monocytes % 1.5 %; Neutrophils # 11.2 K/mcL (1.6-8.9); Platelet Count 262 K/mcL (140-400); Red Cell Distribution Width 13.6 % (11.5-14.5)
[2017-03-05 04:03] LABS: Alanine Aminotransferase 102 Units/L (7-52); Alkaline Phosphatase 234 Units/L (34-104); Aspartate Amino Transferase 142 Units/L (13-39); BUN/Creatinine Ratio 22 (6-26); Bilirubin,Total 0.5 mg/dL (0.3-1.0); Blood Urea Nitrogen 19 mg/dL (8-23); Calcium 8.7 mg/dL (8.6-10.3); Carbon Dioxide 27 mEq/L (23-29); Chloride 99 mEq/L (98-107); Globulin 3.1 g/dL (2.4-3.5); Glucose 302 mg/dL (70-105); Osmolality,Calculated 292 (280-300); Potassium 4.3 mEq/L (3.5-5.1); Sodium 134 mEq/L (136-145); Total Protein 6.1 g/dL (6.4-8.9); eGFR For African Americans > 60 (> 60); eGFR For Non-African Americans > 60 (> 60)
[2017-03-05] MEDS: Piperacillin/Tazobactam 3.375 GM/200 ML BAG IVPB SCH ×3 (04:56→19:47)
[2017-03-05] MEDS: MethylPREDNISolone 40 MG/ML VIAL IVP SCH ×2 (05:02→17:43)
[2017-03-05] MEDS: *HR* Heparin 5,000 UNIT/ML VIAL SQ SCH ×2 (05:03→17:50)
[2017-03-05] MEDS ORDERED: Lactulose Oral Soln 20 GM/30 ML UDC PO PRN (08:20)
[2017-03-05] MEDS ORDERED: Sennosides/Docusate Sodium TABLET PO PRN (08:20)
[2017-03-05] MEDS: Gabapentin 400 MG CAPSULE PO SCH ×3 (08:30→19:48)
[2017-03-05] MEDS: Metoprolol XL (24 HR) Succ 50 MG TAB.ER.24H PO SCH (08:30)
[2017-03-05] MEDS: Levofloxacin 750 MG/150 ML 750 MG/150 ML BAG IVPB SCH (08:31)
[2017-03-05] MEDS: Aspirin 81 MG TAB.CHEW PO SCH (08:31)
[2017-03-05] MEDS: ALPRAZolam 0.5 MG TABLET PO SCH ×2 (08:31→19:48)
[2017-03-05] MEDS: Furosemide 40 MG/4 ML VIAL IVP SCH (08:31)
[2017-03-05] MEDS: Nicotine 14 MG PATCH.TD24 TD SCH (08:32)
[2017-03-05] MEDS: Insulin LISPRO 300 UNITS/3 ML VIAL SQ SCH ×4 (08:40→22:21)
[2017-03-05] MEDS: Insulin DETEMIR 100 UNIT/ML X5UNITS SQ SCH ×2 (08:44→19:48)
--- NOTE | 2017-03-05 09:05 | Internal Med Progress Note ---
<Alex Mcghee - Last Filed: 03/05/17 13:20> Date of Encounter: 03/05/17 Time of Encounter: 08:15 - Assessment and plan (1) Acute respiratory failure with hypoxia Current Visit: Yes Status: Acute Assessment and plan: - With noted desaturation to high 80s despite of being on 5L oxygen on initial presentation. Patient is not using oxygen at home. - ABG on 03/04/17 showed pH 7.41, pCO2 42, pO2 49 and HCO3 27. Improved with BiPAP as repeat ABG showed pH 7.43, pCO2 46, pO2 63 and HCO3 30 - Likely multifactorial including pneumonia and/or pulmonary edema from volume overload in the setting of underlying diastolic CHF and COPD. - Improves as patient reports breathing better and maintains acceptable oxygenation on 6L NC. - Antibiotics for pneumonia. - Diuresis for CHF. - Steroid, Symbicort and bronchodilators for COPD. - Continue supplemental oxygen and can use BiPAP as needed for respiratory support. - Continue close monitoring. (2) Pneumonia Current Visit: Yes Status: Acute Assessment and plan: - CXR on 03/02/17 found new patchy airspace opacities within the mid to lower lungs bilaterally with a more focal 3.5 cm rounded opacity in the retrocardiac region suspicious for pneumonia. - CT chest on 03/03/17 found diffuse ground-glass opacities and ground-glass nodules throughout the lungs with dependent airspace disease bilaterally. - Positive urine antigen for Strept. pneumonia. Negative respiratory infection panel and urine antigen for Legionella - Sputum culture preliminarily grew Strept. pneumoniae, E. coli and Klebsiella pneumoniae. - Continue IV levofloxacin (since 03/03/17) and Zosyn (since 03/03/17). Further de- escalation based based clinical picture. - Continue to monitor closely. Qualifiers: Pneumonia type: due to Pneumococcus Laterality: bilateral Lung location: lower lobe of lung Qualified Code(s): J13 - Pneumonia due to Streptococcus pneumoniae (3) Bladder mass Current Visit: Yes Status: Chronic Assessment and plan: - CT A/P on 03/01/17 found the lobulated mass, likely from prostate, projecting into the lumen of the bladder. Stable compared to prior imagings. - Likely contributing to patient's urinary retention and incontinence. Patient' s current abdominal pain is likely from bladder spasm. - Continue Levsin for bladder spasms along with narcotic for pain control. - Continue urinary catheter as recommended by urology. - Appreciate urology follow-up and recommendations. (4) Transaminitis Current Visit: Yes Status: Acute Assessment and plan: - Elevated AST, ALT and alkaline phosphatase today. - Patient reports no known history of hepatitis and denies alcohol abuse. - Will obtain liver US as further work-up. (5) Chest wall pain Current Visit: No Status: Acute Assessment and plan: - Likely secondary to cough and/or recent trauma from fall. But elevated AST, ALT and alkaline phosphatase noted today also raises the concern of liver as source of pain. - Will obtain liver US as further work-up. - Continue prn pain control. (6) Colitis Current Visit: Yes Status: Suspected Assessment and plan: - CT A/P on 03/04/17 found wall thickening in the sigmoid colon suspicious for colitis. - Continue IV Zosyn (since 03/03/17). - Patient may outpatient colonoscopy after discharge as further work-up. (7) Diastolic heart failure Current Visit: Yes Status: Chronic Assessment and plan: - Echo on 05/12/16 found LVEF 50-55% with evidence of mild diastolic dysfunction of the left ventricle. - Net +347 mL since admission. Associated pulmonary edema/volume overload may contribute to patient's current hypoxic respiratory failure. - Continue Lasix 40 mg IV BID. - Strict I/O and daily weight. Qualifiers: Heart failure chronicity: chronic Qualified Code(s): I50.32 - Chronic diastolic (congestive) heart failure (8) COPD (chronic obstructive pulmonary disease) Current Visit: No Status: Chronic Assessment and plan: - Patient likely has underlying COPD given his significant smoking history. - Continue Solu-Medrol, Symbicort, bronchodilator and supplemental oxygen. Qualifiers: COPD type: unspecified COPD Qualified Code(s): J44.9 - Chronic obstructive pulmonary disease, unspecified (9) Diabetes mellitus type 2 in nonobese Current Visit: No Status: Chronic Assessment and plan: - Poorly controlled diabetes with Hgb A1C 12.7. - Highly elevated glucose (756) on admission is likely secondary to prednisone use prior to admission. - Glucose 302 this morning. - Continue basal and sliding scale insulin with glucose monitoring. (10) Hyponatremia Current Visit: Yes Status: Acute Assessment and plan: - Na 127 on admission. - Improves as Na 134 today. (11) Hyperkalemia Current Visit: Yes Status: Resolved Assessment and plan: - K 5.8 on admission. - Resolves as K 4.3 today. (12) CAD (coronary artery disease), [place] coronary artery Current Visit: Yes Status: Chronic Assessment and plan: - Continue aspirin, Plavix, Toprol XL and Lipitor. Qualifiers: [place] vs. transplanted heart: [place] heart Associated angina: without angina Qualified Code(s): I25.10 - Atherosclerotic heart disease of [place] coronary artery without angina pectoris (13) Tobacco use Current Visit: Yes Status: Acute Assessment and plan: - Patient reports smoking for more than 20 years. - Smoking cessation counseling. - Continue nicotine patch. (14) DVT prophylaxis Current Visit: Yes Status: Acute Assessment and plan: - Continue SQ heparin. - Subjective Interval history: Patient was seen and examined this morning. Patient still complaints of right lower chest pain and suprapubic pain. Patient reports breathing and cough improve compared to yesterday. Patient denies fever, chills, nausea, vomiting, diarrhea. Per patient, he had bowel movement this morning which is brown and formed without blood. - Constitutional Vitals: Temp Pulse Resp BP Pulse Ox 98.0 F 70 16 120/73 94 03/05/17 07:03 03/05/17 07:03 03/05/17 07:03 03/05/17 07:03 03/05/17 07:03 General appearance: Present: cooperative, A&O X 3, obese, severe distress (Pain in bladder, groin, and suprapubic area), answers questions appropriately - Head Head exam: Present: normal inspection - Eye Eye exam: Present: EOMI, conjuntiva pink, sclera anicteric - Neck Neck exam general surgery: Present: normal inspection, supple, trachea midline - Respiratory Respiratory exam: Present: chest wall tenderness (Tenderness to palpation at right lower chest area.), CTAB. Absent: accessory muscle use - Cardiovascular Cardiovascular exam: Present: RRR, +S1, +S2 - GI/Abdominal GI/Abdominal exam: Present: normal bowel sounds, soft, tenderness (RUQ and suprapubic), no peritoneal signs - Extremities Exam Extremities exam: Present: pedal edema (Ogxm-[id number]-bcgsixit BLE edema), warm. Absent: cyanotic - Neurological Exam Neurological exam: Present: alert. Absent: facial droop, speech deficit - Skin Skin exam: Present: dry, warm Internal Medicine: Result - Labs CBC & Chem 7: 03/05/17 03:42 03/05/17 03:42 Labs: Short CBC 03/05/17 Range/Units 03:42 WBC 12.4 H (4.3-11.1) K/mcL Hgb 11.3 L (12.9-16.9) g/dL Hct 32.7 L (37.5-50.1) % Plt Count 262 (140-400) K/mcL Neutrophils # 11.2 H (1.6-8.9) K/mcL BMP 03/05/17 03:42 Sodium 134 L Potassium 4.3 Chloride 99 Carbon Dioxide 27 BUN 19 Creatinine 0.86 Glucose 302 H Calcium 8.7 Liver Function 03/05/17 Range/Units 03:42 Total Bilirubin 0.5 (0.3-1.0) mg/dL AST 142 H (13-39) Units/L ALT 102 H (7-52) Units/L Alkaline Phosphatase 234 H (34-104) Units/L Albumin 3.0 L (3.5-5.7) g/dL - ABG Interpretation ABG results: ABG ABG pH 7.43 pH Units (7.32-7.45) 03/04/17 15:36 ABG pCO2 46 mmHg (35-45) H 03/04/17 15:36 ABG pO2 63 mmHg (85-104) L 03/04/17 15:36 ABG O2 Saturation 92 % (95-98) L 03/04/17 15:36 PT/INR, D-dimer PT 10.1 Seconds (9.4-12.1) 03/01/17 16:20 - Impressions Impressions Chest X-Ray 03/02/17 09:29 IMPRESSION: New patchy airspace opacities within the mid to lower lungs bilaterally with a more focal 3.5 cm rounded opacity in the retrocardiac region suspicious for pneumonia. Recommend short-term follow-up to ensure resolution. D/ : / 03/02/2017 10:46:00 Earlene Doll MD / shari Interpreting Provider: Earlene Doll MD Consult Discharge Plan - Plan Referrals: Cyrus Coyne DO [Primary Care Provider] - 03/10/17 1:30 pm () <KatiedouglasaureliaTone frausto - Last Filed: 03/05/17 16:28> Date of Encounter: 03/05/17 - Constitutional Vitals: Temp Pulse Resp BP Pulse Ox 98.2 F 78 18 113/65 95 03/05/17 11:10 03/05/17 11:10 03/05/17 11:10 03/05/17 11:10 03/05/17 11:10 Internal Medicine: Result - Labs CBC & Chem 7: 03/05/17 03:42 03/05/17 03:42 Labs: Short CBC 03/05/17 Range/Units 03:42 WBC 12.4 H (4.3-11.1) K/mcL Hgb 11.3 L (12.9-16.9) g/dL Hct 32.7 L (37.5-50.1) % Plt Count 262 (140-400) K/mcL Neutrophils # 11.2 H (1.6-8.9) K/mcL BMP 03/05/17 03:42 Sodium 134 L Potassium 4.3 Chloride 99 Carbon Dioxide 27 BUN 19 Creatinine 0.86 Glucose 302 H Calcium 8.7 Liver Function 03/05/17 Range/Units 03:42 Total Bilirubin 0.5 (0.3-1.0) mg/dL AST 142 H (13-39) Units/L ALT 102 H (7-52) Units/L Alkaline Phosphatase 234 H (34-104) Units/L Albumin 3.0 L (3.5-5.7) g/dL - ABG Interpretation ABG results: ABG ABG pH 7.43 pH Units (7.32-7.45) 03/04/17 15:36 ABG pCO2 46 mmHg (35-45) H 03/04/17 15:36 ABG pO2 63 mmHg (85-104) L 03/04/17 15:36 ABG O2 Saturation 92 % (95-98) L 03/04/17 15:36 PT/INR, D-dimer PT 10.1 Seconds (9.4-12.1) 03/01/17 16:20 - Impressions Impressions Liver Ultrasound 03/05/17 12:30 IMPRESSION: No cholelithiasis or significant dilation of the common duct. No acute inflammatory abnormality is appreciated. Right hydronephrosis is no longer appreciated. D/ / Nasim Kumar MD / Nasim Kumar MD Interpreting Provider: Nasim Kumar MD - Attending Attestation I examined this patient and my medical decision-making was reviewed with the Resident Physician Dr. Mcghee. I agree with the documented findings, disposition and treatment plan as described except to the extent set forth below. This is a 61 y/o M known bladder mass, urinary incontinence pt admitted here for acute hypoxic resp failure, pneumonia. He is still on 6 lit O2. He seems to be little better today resp function campos. he does c/o RUQ abdominal pain Gen: Mild distress..A,A, O x3 Chest: Diminished BS b/l,, mild rales. Moderate wheezing Hear; S1 S2 + a/p 1. Acute hypoxic resp failure 2. Pneumonia -Sputum +ve E. Coli, Klebsiella, Strep pneumonia 3. Sepsis - he does meet Sepsis criteria with elevated WBC, source of inf as pneumonia, Hypoxic resp failure WBC started trending down Normal Lactic acid @ 1.3 CT of Chest showed worsening pneumonia Cont empirical abx Levaquin + Zosyn will d/c Vancomycin Cont IV Steroids talked to pt;s family at bed side and explained to them about current critical care 4. Acute pulmonary edema due to Pneumonia cont him on IV Lasix 40mg BID 5. Bladder mass / intractable lower abdomen pain due to mis placement of neville adjusted Neville.. now feel better U/S showed improved Rt Hydronephrosis 6. Acute colitis cont empirical abx 7. Elevated LFT's mostly due to sepsis however he c/o RUQ Abd pain -- checked U/S of Liver- no acute pathology need higher level care and close monitoring since he is high risk for septic shock and resp failure
[2017-03-05] MEDS: *HR* OxyCODONE Immed Rel 15 MG TABLET PO PRN ×3 (09:49→19:47)
[2017-03-05] MEDS: Budesonide/Formoterol 160/4.5 MDI IH SCH ×2 (10:44→20:16)
[2017-03-05] MEDS ORDERED: Aminoglycoside Consult 1 EACH MC ONE (12:17)
[2017-03-05] MEDS: *HR* LORazepam 0.5 MG TABLET PO PRN (13:42)
[2017-03-05] MEDS: *HR* Belladonna Alkaloids/Opium 30 MG RECTAL SUPPOSITORY RC PRN (14:20)
[2017-03-05] MEDS ORDERED: Insulin LISPRO 300 UNITS/3 ML VIAL SQ ONE ×2 (16:52→19:01)
[2017-03-05] MEDS: *HR* OxyCODONE ER (12 HR) 20 MG TABLET PO SCH (17:43)
[2017-03-05] MEDS: Furosemide 40 MG TABLET PO SCH (17:43)
[2017-03-06 03:03] LABS: Basophils % 0.1 %; Hematocrit 33.7 % (37.5-50.1); Hemoglobin 11.5 g/dL (12.9-16.9); Immature Granulocytes % 0.9 % (0-4); Lymphocytes # 1.7 K/mcL (0.6-4.6); Lymphocytes % 9.8 %; Mean Corpuscular HGB Conc 34.1 g/dL (31.6-35.5); Mean Corpuscular Hemoglobin 31.8 pg (28.0-33.3); Mean Corpuscular Volume 93.1 fL (83.0-100.0); Mean Platelet Volume 9.7 fL (9.4-12.4); Monocytes # 0.8 K/mcL (0.0-1.3); Monocytes % 4.6 %; Neutrophils # 15.1 K/mcL (1.6-8.9); Platelet Count 298 K/mcL (140-400); Red Blood Count 3.62 M/mcL (4.19-5.50); Red Cell Distribution Width 13.4 % (11.5-14.5); Segmented Neutrophils % 84.6 %
[2017-03-06 03:14] LABS: Alanine Aminotransferase 86 Units/L (7-52); Albumin 3.2 g/dL (3.5-5.7); Albumin/Globulin Ratio 1.1 (1.1-2.2); Alkaline Phosphatase 221 Units/L (34-104); Aspartate Amino Transferase 58 Units/L (13-39); BUN/Creatinine Ratio 27 (6-26); Bilirubin,Total 0.3 mg/dL (0.3-1.0); Blood Urea Nitrogen 26 mg/dL (8-23); Carbon Dioxide 29 mEq/L (23-29); Chloride 101 mEq/L (98-107); Glucose 188 mg/dL (70-105); Osmolality,Calculated 296 (280-300); Potassium 4.1 mEq/L (3.5-5.1); Sodium 138 mEq/L (136-145); Total Protein 6.2 g/dL (6.4-8.9); eGFR For African Americans > 60 (> 60); eGFR For Non-African Americans > 60 (> 60)
[2017-03-06 03:51] LABS: Platelet Estimate Normal (Normal)
[2017-03-06] MEDS: Piperacillin/Tazobactam 3.375 GM/200 ML BAG IVPB SCH ×3 (05:05→20:20)
[2017-03-06] MEDS: *HR* OxyCODONE ER (12 HR) 20 MG TABLET PO SCH ×2 (06:37→17:54)
[2017-03-06] MEDS: MethylPREDNISolone 40 MG/ML VIAL IVP SCH (06:37)
[2017-03-06] MEDS: *HR* HYDROmorphone (PF) 1 MG/ML SYRINGE IVP PRN ×5 (06:41→20:12)
[2017-03-06] MEDS: *HR* Heparin 5,000 UNIT/ML VIAL SQ SCH ×2 (06:42→17:54)
[2017-03-06] MEDS: Aspirin 81 MG TAB.CHEW PO SCH (08:47)
[2017-03-06] MEDS: ALPRAZolam 0.5 MG TABLET PO SCH ×2 (08:47→20:11)
[2017-03-06] MEDS: *HR* OxyCODONE Immed Rel 15 MG TABLET PO PRN ×3 (08:47→22:58)
[2017-03-06] MEDS: Gabapentin 400 MG CAPSULE PO SCH ×3 (08:47→20:11)
[2017-03-06] MEDS: Metoprolol XL (24 HR) Succ 50 MG TAB.ER.24H PO SCH (08:47)
[2017-03-06] MEDS: Insulin DETEMIR 100 UNIT/ML X5UNITS SQ SCH ×2 (08:48→20:20)
[2017-03-06] MEDS: Levofloxacin 750 MG/150 ML 750 MG/150 ML BAG IVPB SCH (08:48)
[2017-03-06] MEDS: Furosemide 40 MG TABLET PO SCH (08:48)
[2017-03-06] MEDS: Insulin LISPRO 300 UNITS/3 ML VIAL SQ SCH ×4 (08:49→22:31)
[2017-03-06] MEDS: Nicotine 14 MG PATCH.TD24 TD SCH (09:09)
--- NOTE | 2017-03-06 10:00 | Internal Med Progress Note ---
<Alex Mcghee - Last Filed: 03/06/17 13:11> Date of Encounter: 03/06/17 Time of Encounter: 08:15 - Assessment and plan (1) Acute respiratory failure with hypoxia Current Visit: Yes Status: Acute Assessment and plan: - With noted desaturation to high 80s despite of being on 5L oxygen on initial presentation. Patient is not using oxygen at home. - ABG on 03/04/17 showed pH 7.41, pCO2 42, pO2 49 and HCO3 27. Improved with BiPAP as repeat ABG showed pH 7.43, pCO2 46, pO2 63 and HCO3 30 - Likely multifactorial including pneumonia and/or pulmonary edema from volume overload in the setting of underlying diastolic CHF and COPD. - Significantly improves as patient reports breathing better and maintains acceptable oxygenation on 6L NC. - Antibiotics for pneumonia. - Diuresis for CHF. - Steroid, Symbicort and bronchodilators for COPD. - Continue supplemental oxygen and can use BiPAP as needed for respiratory support. - Continue close monitoring. (2) Pneumonia Current Visit: Yes Status: Acute Assessment and plan: - CXR on 03/02/17 found new patchy airspace opacities within the mid to lower lungs bilaterally with a more focal 3.5 cm rounded opacity in the retrocardiac region suspicious for pneumonia. - CT chest on 03/03/17 found diffuse ground-glass opacities and ground-glass nodules throughout the lungs with dependent airspace disease bilaterally. - Positive urine antigen for Strept. pneumonia. Negative respiratory infection panel and urine antigen for Legionella - Sputum culture preliminarily grew Strept. pneumoniae, E. coli and Klebsiella pneumoniae. - Continue IV levofloxacin (since 03/03/17) and Zosyn (since 03/03/17). Further de- escalation based based clinical picture. - Continue to monitor closely. Qualifiers: Pneumonia type: due to Pneumococcus Laterality: bilateral Lung location: lower lobe of lung Qualified Code(s): J13 - Pneumonia due to Streptococcus pneumoniae (3) Bladder mass Current Visit: Yes Status: Chronic Assessment and plan: - CT A/P on 03/01/17 found the lobulated mass, likely from prostate, projecting into the lumen of the bladder. Stable compared to prior imagings. - Likely contributing to patient's urinary retention and incontinence. Patient' s current abdominal pain is likely from bladder spasm. - Continue Levsin for bladder spasms along with narcotic for pain control. - Continue urinary catheter as recommended by urology. - Appreciate urology follow-up and recommendations. (4) Transaminitis Current Visit: Yes Status: Acute Assessment and plan: - Elevated AST (142), ALT (102) and alkaline phosphatase (234) on 03/05/17. - Likely shock liver related patient's significant illiness the day prior. - Patient reports no known history of hepatitis and denies alcohol abuse. - Liver US on 03/05/17 found no cholelithiasis nor significant dilation of the common duct. And no acute inflammatory abnormality is appreciated. (5) Chest wall pain Current Visit: No Status: Acute Assessment and plan: - Likely secondary to cough and/or recent trauma from fall. But elevated AST, ALT and alkaline phosphatase noted today also raises the concern of liver as source of pain. - Continue prn pain control. (6) Colitis Current Visit: Yes Status: Suspected Assessment and plan: - CT A/P on 03/04/17 found wall thickening in the sigmoid colon suspicious for colitis. - Continue IV Zosyn (since 03/03/17). - Patient may need outpatient colonoscopy after discharge as further work-up. (7) Diastolic heart failure Current Visit: Yes Status: Chronic Assessment and plan: - Echo on 05/12/16 found LVEF 50-55% with evidence of mild diastolic dysfunction of the left ventricle. - Net -1823 mL since admission. Associated pulmonary edema/volume overload may contribute to patient's current hypoxic respiratory failure. - Will switch Lasix to 40 mg PO BID. - Strict I/O and daily weight. Qualifiers: Heart failure chronicity: chronic Qualified Code(s): I50.32 - Chronic diastolic (congestive) heart failure (8) COPD (chronic obstructive pulmonary disease) Current Visit: No Status: Chronic Assessment and plan: - Patient likely has underlying COPD given his significant smoking history. - Continue Symbicort, bronchodilator and supplemental oxygen. Will switch steroid to Prednisone 40 mg PO daily. Qualifiers: COPD type: unspecified COPD Qualified Code(s): J44.9 - Chronic obstructive pulmonary disease, unspecified (9) Diabetes mellitus type 2 in nonobese Current Visit: No Status: Chronic Assessment and plan: - Poorly controlled diabetes with Hgb A1C 12.7. - Highly elevated glucose (756) on admission is likely secondary to prednisone use prior to admission. - Better controlled as glucose 188 this morning. - Continue basal and sliding scale insulin with glucose monitoring. (10) Hyponatremia Current Visit: Yes Status: Acute Assessment and plan: - Na 127 on admission. - Improves as Na 138 today. (11) Hyperkalemia Current Visit: Yes Status: Resolved Assessment and plan: - K 5.8 on admission. - Resolves as K 4.1 today. (12) CAD (coronary artery disease), [place] coronary artery Current Visit: Yes Status: Chronic Assessment and plan: - Continue aspirin, Plavix, Toprol XL and Lipitor. Qualifiers: [place] vs. transplanted heart: [place] heart Associated angina: without angina Qualified Code(s): I25.10 - Atherosclerotic heart disease of [place] coronary artery without angina pectoris (13) Tobacco use Current Visit: Yes Status: Acute Assessment and plan: - Patient reports smoking for more than 20 years. - Smoking cessation counseling. - Continue nicotine patch. (14) DVT prophylaxis Current Visit: Yes Status: Acute Assessment and plan: - Continue SQ heparin. - Subjective Interval history: Patient was seen and examined this morning. Patient reports feeling much better today as his shortness of breath and cough improve and pain gets better controlled. Patient denies fever, chills, nausea, vomiting, diarrhea. - Constitutional Vitals: Temp Pulse Resp BP Pulse Ox 98.4 F 75 18 124/78 93 03/06/17 07:32 03/06/17 07:32 03/06/17 07:32 03/06/17 07:32 03/06/17 07:32 General appearance: Present: cooperative, A&O X 3, obese, severe distress (Pain in bladder, groin, and suprapubic area), answers questions appropriately - Head Head exam: Present: normal inspection - Eye Eye exam: Present: EOMI, conjuntiva pink, sclera anicteric - Neck Neck exam general surgery: Present: normal inspection, supple, trachea midline - Respiratory Respiratory exam: Present: CTAB. Absent: accessory muscle use - Cardiovascular Cardiovascular exam: Present: RRR, +S1, +S2 - GI/Abdominal GI/Abdominal exam: Present: soft - Extremities Exam Extremities exam: Present: pedal edema ([id number] BLE edema), warm. Absent: cyanotic - Neurological Exam Neurological exam: Present: alert, no focal deficits. Absent: facial droop, speech deficit - Skin Skin exam: Present: dry, warm Internal Medicine: Result - Labs CBC & Chem 7: 03/06/17 02:28 03/06/17 02:28 Labs: Short CBC 03/06/17 Range/Units 02:28 WBC 17.8 H (4.3-11.1) K/mcL Hgb 11.5 L (12.9-16.9) g/dL Hct 33.7 L (37.5-50.1) % Plt Count 298 (140-400) K/mcL Neutrophils # 15.1 H (1.6-8.9) K/mcL BMP 03/06/17 02:28 Sodium 138 Potassium 4.1 Chloride 101 Carbon Dioxide 29 BUN 26 H Creatinine 0.97 Glucose 188 H Calcium 9.0 Liver Function 03/06/17 Range/Units 02:28 Total Bilirubin 0.3 (0.3-1.0) mg/dL AST 58 H (13-39) Units/L ALT 86 H (7-52) Units/L Alkaline Phosphatase 221 H (34-104) Units/L Albumin 3.2 L (3.5-5.7) g/dL - ABG Interpretation ABG results: ABG ABG pH 7.43 pH Units (7.32-7.45) 03/04/17 15:36 ABG pCO2 46 mmHg (35-45) H 03/04/17 15:36 ABG pO2 63 mmHg (85-104) L 03/04/17 15:36 ABG O2 Saturation 92 % (95-98) L 03/04/17 15:36 PT/INR, D-dimer PT 10.1 Seconds (9.4-12.1) 03/01/17 16:20 - Impressions Impressions Liver Ultrasound 03/05/17 12:30 IMPRESSION: No cholelithiasis or significant dilation of the common duct. No acute inflammatory abnormality is appreciated. Right hydronephrosis is no longer appreciated. D/ / Nasim Kumar MD / Nasim Kumar MD Interpreting Provider: Nasim Kumar MD Consult Discharge Plan - Plan Referrals: Cyrus Coyne DO [Primary Care Provider] - 03/10/17 1:30 pm () <Tone Elise - Last Filed: 03/06/17 15:57> Date of Encounter: 03/06/17 - Constitutional Vitals: Temp Pulse Resp BP Pulse Ox 98.5 F 75 18 123/75 94 03/06/17 15:51 03/06/17 15:51 03/06/17 15:51 03/06/17 15:51 03/06/17 15:51 Internal Medicine: Result - Labs CBC & Chem 7: 03/06/17 02:28 03/06/17 02:28 Labs: Short CBC 03/06/17 Range/Units 02:28 WBC 17.8 H (4.3-11.1) K/mcL Hgb 11.5 L (12.9-16.9) g/dL Hct 33.7 L (37.5-50.1) % Plt Count 298 (140-400) K/mcL Neutrophils # 15.1 H (1.6-8.9) K/mcL BMP 03/06/17 02:28 Sodium 138 Potassium 4.1 Chloride 101 Carbon Dioxide 29 BUN 26 H Creatinine 0.97 Glucose 188 H Calcium 9.0 Liver Function 03/06/17 Range/Units 02:28 Total Bilirubin 0.3 (0.3-1.0) mg/dL AST 58 H (13-39) Units/L ALT 86 H (7-52) Units/L Alkaline Phosphatase 221 H (34-104) Units/L Albumin 3.2 L (3.5-5.7) g/dL - ABG Interpretation ABG results: ABG ABG pH 7.43 pH Units (7.32-7.45) 03/04/17 15:36 ABG pCO2 46 mmHg (35-45) H 03/04/17 15:36 ABG pO2 63 mmHg (85-104) L 03/04/17 15:36 ABG O2 Saturation 92 % (95-98) L 03/04/17 15:36 PT/INR, D-dimer PT 10.1 Seconds (9.4-12.1) 03/01/17 16:20 - Attending Attestation I examined this patient and my medical decision-making was reviewed with the Resident Physician Dr. Taz. I agree with the documented findings, disposition and treatment plan as described except to the extent set forth below. This is a 61 y/o M known bladder mass, urinary incontinence pt admitted here for acute hypoxic resp failure, pneumonia. Pt stated he is feeling lot better today. Currently on 4 lit O2. Denied any RUQ pain Gen:A,A, O x3 Chest: Diminished BS b/l,, mild rales. Moderate wheezing Hear; S1 S2 + a/p 1. Acute hypoxic resp failure 2. Pneumonia -Sputum +ve E. Coli, Klebsiella, Strep pneumonia 3. Sepsis - he does meet Sepsis criteria with elevated WBC, source of inf as pneumonia, Hypoxic resp failure WBC went up little bit due to steroids CT of Chest showed worsening pneumonia Cont empirical abx Levaquin + Zosyn switch to PO Steroids 4. Acute pulmonary edema due to Pneumonia Improving will switch to PO Lasix 5. Bladder mass / intractable lower abdomen pain due to mis placement of [place] adjusted [place].. now feel better U/S showed improved Rt Hydronephrosis 6. Acute colitis cont empirical abx 7. Elevated LFT's mostly due to sepsis U/S of Liver- no acute pathology Improving Still need higher level care and close monitoring since he is high risk for septic shock and resp failure
[2017-03-06] MEDS: Budesonide/Formoterol 160/4.5 MDI IH SCH ×2 (10:06→22:58)
[2017-03-06] MEDS: Furosemide 20 MG TABLET PO SCH (15:57)
[2017-03-06] MEDS: *HR* LORazepam 0.5 MG TABLET PO PRN (20:12)
[2017-03-07] MEDS: *HR* HYDROmorphone (PF) 1 MG/ML SYRINGE IVP PRN ×5 (02:05→21:12)
[2017-03-07 03:51] LABS: Basophils % 0.2 %; Eosinophils # 0.1 K/mcL (0.0-0.6); Eosinophils % 0.5 %; Hematocrit 34.5 % (37.5-50.1); Hemoglobin 11.4 g/dL (12.9-16.9); Immature Granulocytes % 1.1 % (0-4); Lymphocytes # 3.4 K/mcL (0.6-4.6); Lymphocytes % 27.8 %; Mean Corpuscular Hemoglobin 31.1 pg (28.0-33.3); Monocytes # 0.9 K/mcL (0.0-1.3); Monocytes % 7.2 %; Neutrophils # 7.8 K/mcL (1.6-8.9); Platelet Count 338 K/mcL (140-400); Red Blood Count 3.67 M/mcL (4.19-5.50); Red Cell Distribution Width 13.6 % (11.5-14.5); Segmented Neutrophils % 63.2 %
[2017-03-07 04:10] LABS: Alanine Aminotransferase 60 Units/L (7-52); Albumin/Globulin Ratio 0.9 (1.1-2.2); Alkaline Phosphatase 205 Units/L (34-104); Aspartate Amino Transferase 24 Units/L (13-39); BUN/Creatinine Ratio 22 (6-26); Bilirubin,Total 0.3 mg/dL (0.3-1.0); Blood Urea Nitrogen 20 mg/dL (8-23); Calcium 8.7 mg/dL (8.6-10.3); Carbon Dioxide 30 mEq/L (23-29); Chloride 101 mEq/L (98-107); Globulin 3.2 g/dL (2.4-3.5); Glucose 162 mg/dL (70-105); Osmolality,Calculated 288 (280-300); Potassium 3.5 mEq/L (3.5-5.1); Sodium 136 mEq/L (136-145); Total Protein 6.2 g/dL (6.4-8.9); eGFR For African Americans > 60 (> 60); eGFR For Non-African Americans > 60 (> 60)
[2017-03-07] MEDS: *HR* OxyCODONE ER (12 HR) 20 MG TABLET PO SCH ×2 (05:44→16:51)
[2017-03-07] MEDS: Piperacillin/Tazobactam 3.375 GM/200 ML BAG IVPB SCH ×3 (05:46→20:06)
[2017-03-07] MEDS: Budesonide/Formoterol 160/4.5 MDI IH SCH ×2 (07:34→20:35)
[2017-03-07] MEDS: *HR* Heparin 5,000 UNIT/ML VIAL SQ SCH ×2 (07:35→16:52)
[2017-03-07] MEDS: Insulin LISPRO 300 UNITS/3 ML VIAL SQ SCH ×5 (08:09→20:17)
[2017-03-07] MEDS: ALPRAZolam 0.5 MG TABLET PO SCH ×2 (08:11→20:12)
[2017-03-07] MEDS: Nicotine 14 MG PATCH.TD24 TD SCH (08:11)
[2017-03-07] MEDS: predniSONE 20 MG TABLET PO SCH (08:12)
[2017-03-07] MEDS: Furosemide 20 MG TABLET PO SCH ×2 (08:12→16:52)
[2017-03-07] MEDS: Metoprolol XL (24 HR) Succ 50 MG TAB.ER.24H PO SCH (08:12)
[2017-03-07] MEDS: Levofloxacin 750 MG/150 ML 750 MG/150 ML BAG IVPB SCH (08:13)
[2017-03-07] MEDS: Gabapentin 400 MG CAPSULE PO SCH ×3 (08:13→20:12)
[2017-03-07] MEDS: Aspirin 81 MG TAB.CHEW PO SCH (08:13)
[2017-03-07] MEDS: Insulin DETEMIR 100 UNIT/ML X5UNITS SQ SCH ×2 (09:44→20:15)
--- NOTE | 2017-03-07 11:23 | Internal Med Progress Note ---
Date of Encounter: 03/07/17 Time of Encounter: 10:30 - Assessment and plan (1) Acute respiratory failure with hypoxia Current Visit: Yes Status: Acute Assessment and plan: Improving Cont empirical abx Zosyn + Levaquin Cont weaning him off O2 as he tolerates PO Diuresis for CHF. Cont tpaering Steroid, Symbicort and bronchodilators for COPD. Continue supplemental oxygen and can use BiPAP as needed for respiratory support. Continue close monitoring. PT / OT eval (2) Diastolic heart failure Current Visit: Yes Status: Acute Assessment and plan: Was in decompensation earlier improving slowly PO Lasix now Echo on 05/12/16 found LVEF 50-55% with evidence of mild diastolic dysfunction of the left ventricle. Strict I/O and daily weight. Qualifiers: Heart failure chronicity: chronic Qualified Code(s): I50.32 - Chronic diastolic (congestive) heart failure (3) Pneumonia Current Visit: Yes Status: Acute Assessment and plan: Sputum culture preliminarily grew Strept. pneumoniae, E. coli and Klebsiella pneumoniae. Switched to P levofloxacin (since 03/03/17) and Cont Zosyn (since 03/03/17). Further de-escalation based based clinical picture. Continue to monitor closely. Qualifiers: Pneumonia type: due to Pneumococcus Laterality: bilateral Lung location: lower lobe of lung Qualified Code(s): J13 - Pneumonia due to Streptococcus pneumoniae (4) Tobacco use Current Visit: Yes Status: Acute Assessment and plan: - Patient reports smoking for more than 20 years. - Smoking cessation counseling. - Continue nicotine patch. (5) Bladder mass Current Visit: Yes Status: Acute Assessment and plan: as per Urology (6) BPH w urinary obs/LUTS Current Visit: Yes Status: Acute (7) Colitis Current Visit: Yes Status: Suspected Assessment and plan: - CT A/P on 03/04/17 found wall thickening in the sigmoid colon suspicious for colitis. - Continue IV Zosyn (since 03/03/17). - Patient may need outpatient colonoscopy after discharge as further work-up. (8) Transaminitis Current Visit: Yes Status: Acute Assessment and plan: Likely due to sepsis Trending down Liver US on 03/05/17 found no cholelithiasis nor significant dilation of the common duct. And no acute inflammatory abnormality is appreciated. - Subjective Interval history: This is a 61 y/o M known CAD, COPD, Diastolic CHF, CVA, DM2, GERD, HLD, HTN, bladder mass, urinary incontinence, pt admitted here for acute hypoxic resp failure, pneumonia. Pt stated he is feeling lot better today. Currently on 4 lit O2. Denied any RUQ pain. No events over night - Constitutional Vitals: Temp Pulse Resp BP Pulse Ox 98.7 F 72 17 125/74 93 03/07/17 11:12 03/07/17 11:12 03/07/17 11:12 03/07/17 11:12 03/07/17 11:12 General appearance: Present: cooperative, mild distress, A&O X 3, obese, answers questions appropriately - Head Head exam: Present: atraumatic, normal inspection - Neck Neck exam general surgery: Present: supple - Respiratory Respiratory exam: Present: decreased breath sounds, wheezes (moderate). Absent : rales, respiratory distress, rhonchi - Cardiovascular Cardiovascular exam: Present: RRR, +S1, +S2. Absent: tachycardia - GI/Abdominal GI/Abdominal exam: Present: distended, normal bowel sounds, soft. Absent: rebound, rigid, tenderness - Extremities Exam Extremities exam: Present: pedal edema. Absent: calf tenderness, tenderness - Back Exam Back exam: Absent: CVA tenderness (L), CVA tenderness (R) - Psychiatric Psychiatric exam: Present: normal affect, normal mood Internal Medicine: Result - Labs CBC & Chem 7: 03/07/17 03:26 03/07/17 03:26 Labs: Short CBC 03/07/17 Range/Units 03:26 WBC 12.3 H (4.3-11.1) K/mcL Hgb 11.4 L (12.9-16.9) g/dL Hct 34.5 L (37.5-50.1) % Plt Count 338 (140-400) K/mcL Neutrophils # 7.8 (1.6-8.9) K/mcL BMP 03/07/17 03:26 Sodium 136 Potassium 3.5 Chloride 101 Carbon Dioxide 30 H BUN 20 Creatinine 0.92 Glucose 162 H Calcium 8.7 Liver Function 03/07/17 Range/Units 03:26 Total Bilirubin 0.3 (0.3-1.0) mg/dL AST 24 (13-39) Units/L ALT 60 H (7-52) Units/L Alkaline Phosphatase 205 H (34-104) Units/L Albumin 3.0 L (3.5-5.7) g/dL - ABG Interpretation ABG results: ABG ABG pH 7.43 pH Units (7.32-7.45) 03/04/17 15:36 ABG pCO2 46 mmHg (35-45) H 03/04/17 15:36 ABG pO2 63 mmHg (85-104) L 03/04/17 15:36 ABG O2 Saturation 92 % (95-98) L 03/04/17 15:36 PT/INR, D-dimer PT 10.1 Seconds (9.4-12.1) 03/01/17 16:20 Consult Discharge Plan - Plan Referrals: Cyrus Coyne DO [Primary Care Provider] - 03/10/17 1:30 pm ()
[2017-03-07] MEDS: *HR* OxyCODONE Immed Rel 15 MG TABLET PO PRN (13:28)
[2017-03-08] MEDS: *HR* OxyCODONE Immed Rel 15 MG TABLET PO PRN ×5 (00:09→20:50)
[2017-03-08] MEDS: *HR* HYDROmorphone (PF) 1 MG/ML SYRINGE IVP PRN ×4 (02:54→22:01)
[2017-03-08] MEDS: Piperacillin/Tazobactam 3.375 GM/200 ML BAG IVPB SCH ×2 (03:28→11:45)
[2017-03-08] MEDS: *HR* OxyCODONE ER (12 HR) 20 MG TABLET PO SCH ×2 (05:48→16:57)
[2017-03-08] MEDS: *HR* Heparin 5,000 UNIT/ML VIAL SQ SCH ×2 (05:48→16:57)
[2017-03-08 07:55] LABS: Basophils % 0.3 %; Eosinophils # 0.1 K/mcL (0.0-0.6); Eosinophils % 1.3 %; Hematocrit 36.1 % (37.5-50.1); Hemoglobin 11.9 g/dL (12.9-16.9); Lymphocytes % 36.5 %; Mean Corpuscular Hemoglobin 31.5 pg (28.0-33.3); Mean Corpuscular Volume 95.5 fL (83.0-100.0); Mean Platelet Volume 8.9 fL (9.4-12.4); Monocytes # 0.7 K/mcL (0.0-1.3); Monocytes % 6.7 %; Platelet Count 367 K/mcL (140-400); Red Blood Count 3.78 M/mcL (4.19-5.50); Red Cell Distribution Width 13.8 % (11.5-14.5); Segmented Neutrophils % 54.2 %
[2017-03-08] MEDS: Insulin LISPRO 300 UNITS/3 ML VIAL SQ SCH ×4 (07:59→20:01)
[2017-03-08] MEDS: Nicotine 14 MG PATCH.TD24 TD SCH (08:00)
[2017-03-08] MEDS: Insulin DETEMIR 100 UNIT/ML X5UNITS SQ SCH ×2 (08:04→20:00)
[2017-03-08] MEDS: ALPRAZolam 0.5 MG TABLET PO SCH ×2 (08:05→20:00)
[2017-03-08] MEDS: Furosemide 20 MG TABLET PO SCH ×2 (08:05→16:57)
[2017-03-08] MEDS: Gabapentin 400 MG CAPSULE PO SCH ×3 (08:05→20:00)
[2017-03-08] MEDS: predniSONE 20 MG TABLET PO SCH (08:05)
[2017-03-08] MEDS: Aspirin 81 MG TAB.CHEW PO SCH (08:05)
[2017-03-08] MEDS: Metoprolol XL (24 HR) Succ 50 MG TAB.ER.24H PO SCH (08:05)
[2017-03-08] MEDS: levoFLOXacin 750 MG TABLET PO SCH (08:05)
[2017-03-08] MEDS: Budesonide/Formoterol 160/4.5 MDI IH SCH ×2 (08:29→22:28)
[2017-03-08 08:33] LABS: BUN/Creatinine Ratio 23 (6-26); Blood Urea Nitrogen 18 mg/dL (8-23); Carbon Dioxide 30 mEq/L (23-29); Chloride 103 mEq/L (98-107); Glucose 99 mg/dL (70-105); Osmolality,Calculated 292 (280-300); Potassium 3.3 mEq/L (3.5-5.1); Sodium 140 mEq/L (136-145); eGFR For African Americans > 60 (> 60); eGFR For Non-African Americans > 60 (> 60)
--- NOTE | 2017-03-08 14:33 | Internal Med Progress Note ---
Date of Encounter: 03/08/17 Time of Encounter: 10:20 - Assessment and plan (1) Acute respiratory failure with hypoxia Current Visit: Yes Status: Acute Assessment and plan: Improving Will switch to PO Levaquin today Cont weaning him off O2 as he tolerates PO Diuresis for CHF. Cont tapering Steroid, Symbicort and bronchodilators for COPD. Continue supplemental oxygen and can use BiPAP as needed for respiratory support. Continue close monitoring. PT / OT dorian (2) Diastolic heart failure Current Visit: Yes Status: Acute Assessment and plan: Was in decompensation earlier improving slowly PO Lasix now Echo on 05/12/16 found LVEF 50-55% with evidence of mild diastolic dysfunction of the left ventricle. Strict I/O and daily weight. Qualifiers: Heart failure chronicity: chronic Qualified Code(s): I50.32 - Chronic diastolic (congestive) heart failure (3) Pneumonia Current Visit: Yes Status: Acute Assessment and plan: Sputum culture preliminarily grew Strep. pneumonia, E. coli and Klebsiella pneumoniae. all 3 are susceptible to Levaquin..since he is doing better clinically will d/c Zosyn Continue to monitor closely. Qualifiers: Pneumonia type: due to Pneumococcus Laterality: bilateral Lung location: lower lobe of lung Qualified Code(s): J13 - Pneumonia due to Streptococcus pneumoniae (4) Tobacco use Current Visit: Yes Status: Acute Assessment and plan: - Patient reports smoking for more than 20 years. - Smoking cessation counseling. - Continue nicotine patch. (5) Bladder mass Current Visit: Yes Status: Acute Assessment and plan: as per Urology (6) BPH w urinary obs/LUTS Current Visit: Yes Status: Acute (7) Colitis Current Visit: Yes Status: Suspected Assessment and plan: - CT A/P on 03/04/17 found wall thickening in the sigmoid colon suspicious for colitis. - on Levaquin - Patient may need outpatient colonoscopy after discharge as further work-up. (8) Transaminitis Current Visit: Yes Status: Acute Assessment and plan: Likely due to sepsis Trending down Liver US on 03/05/17 found no cholelithiasis nor significant dilation of the common duct. And no acute inflammatory abnormality is appreciated. - Subjective Interval history: This is a 61 y/o M known CAD, COPD, Diastolic CHF, CVA, DM2, GERD, HLD, HTN, bladder mass, urinary incontinence, pt admitted here for acute hypoxic resp failure, pneumonia. Pt stated he is feeling lot better today. Currently on 3 lit O2. Denied any RUQ pain. No events over night.. Still has discomfort in supra pubic region..Overall feels better. - Constitutional Vitals: Temp Pulse Resp BP Pulse Ox 98.2 F 72 20 126/81 90 03/08/17 11:44 03/08/17 11:44 03/08/17 11:44 03/08/17 11:44 03/08/17 11:44 General appearance: Present: cooperative, A&O X 3, obese, answers questions appropriately - Head Head exam: Present: atraumatic, normal inspection - Neck Neck exam general surgery: Present: supple - Respiratory Respiratory exam: Present: decreased breath sounds, wheezes (moderate). Absent : rales, respiratory distress, rhonchi - Cardiovascular Cardiovascular exam: Present: RRR, +S1, +S2. Absent: tachycardia - GI/Abdominal GI/Abdominal exam: Present: normal bowel sounds, soft. Absent: rebound, rigid, tenderness - Extremities Exam Extremities exam: Present: pedal edema (++). Absent: calf tenderness, tenderness - Back Exam Back exam: Absent: CVA tenderness (L), CVA tenderness (R) - Neurological Exam Neurological exam: Present: alert, oriented X3 - Psychiatric Psychiatric exam: Present: normal affect, normal mood Internal Medicine: Result - Labs CBC & Chem 7: 03/08/17 06:41 03/08/17 06:41 Labs: Short CBC 03/08/17 Range/Units 06:41 WBC 11.0 (4.3-11.1) K/mcL Hgb 11.9 L (12.9-16.9) g/dL Hct 36.1 L (37.5-50.1) % Plt Count 367 (140-400) K/mcL Neutrophils # 6.0 (1.6-8.9) K/mcL BMP 03/08/17 06:41 Sodium 140 Potassium 3.3 L Chloride 103 Carbon Dioxide 30 H BUN 18 Creatinine 0.79 Glucose 99 Calcium 9.0 - ABG Interpretation ABG results: ABG ABG pH 7.43 pH Units (7.32-7.45) 03/04/17 15:36 ABG pCO2 46 mmHg (35-45) H 03/04/17 15:36 ABG pO2 63 mmHg (85-104) L 03/04/17 15:36 ABG O2 Saturation 92 % (95-98) L 03/04/17 15:36 PT/INR, D-dimer PT 10.1 Seconds (9.4-12.1) 03/01/17 16:20 Consult Discharge Plan - Plan Referrals: Cyrus Coyne DO [Primary Care Provider] - 03/10/17 1:30 pm ()
[2017-03-09] MEDS: *HR* OxyCODONE Immed Rel 15 MG TABLET PO PRN ×5 (00:55→19:54)
[2017-03-09] MEDS: *HR* HYDROmorphone (PF) 1 MG/ML SYRINGE IVP PRN ×4 (02:58→21:19)
[2017-03-09] MEDS: *HR* OxyCODONE ER (12 HR) 20 MG TABLET PO SCH ×2 (05:25→16:52)
[2017-03-09] MEDS: *HR* Heparin 5,000 UNIT/ML VIAL SQ SCH ×2 (05:25→16:52)
[2017-03-09] MEDS: Insulin LISPRO 300 UNITS/3 ML VIAL SQ SCH ×4 (07:59→21:19)
[2017-03-09] MEDS: Metoprolol XL (24 HR) Succ 50 MG TAB.ER.24H PO SCH (08:04)
[2017-03-09] MEDS: predniSONE 20 MG TABLET PO SCH (08:04)
[2017-03-09] MEDS: Aspirin 81 MG TAB.CHEW PO SCH (08:04)
[2017-03-09] MEDS: Gabapentin 400 MG CAPSULE PO SCH ×3 (08:04→21:18)
[2017-03-09] MEDS: levoFLOXacin 750 MG TABLET PO SCH (08:04)
[2017-03-09] MEDS: Furosemide 20 MG TABLET PO SCH ×2 (08:04→16:52)
[2017-03-09] MEDS: ALPRAZolam 0.5 MG TABLET PO SCH ×2 (08:04→21:18)
[2017-03-09] MEDS: Nicotine 14 MG PATCH.TD24 TD SCH (08:05)
--- NOTE | 2017-03-09 09:23 | Internal Med Progress Note ---
<Chintan Tripp - Last Filed: 03/09/17 13:38> Date of Encounter: 03/09/17 Time of Encounter: 09:21 - Assessment and plan (1) Acute respiratory failure with hypoxia Current Visit: Yes Status: Acute Assessment and plan: - Secondary to likely combination of pneumonia versus COPD exacerbation versus pulmonary edema - Improving. Tolerating 4 L supplemental oxygen at 98% - No complaints of shortness of breath at this time Plan - Continue Levaquin 750 mg by mouth daily, day #2 - Cont weaning him off O2 as he tolerates - Continue Lasix 20 mg by mouth twice a day for gentle diuresis - Cont tapering Steroid to prednisone 30 mg daily, Symbicort and bronchodilators for COPD. - Continue close monitoring. (2) Pneumonia Current Visit: Yes Status: Acute Assessment and plan: - Sputum culture grew Strep. pneumonia, E. coli and Klebsiella pneumoniae. - All 3 are susceptible to Levaquin - CT chest on 03/04/17 shows evidence of diffuse ground glass opacities which are likely reactive vs infectious in nature. - Pt currently tolerating 4L O2 at 98%. No complaints of SOB or cough or f/c. Rales in LLL on exam - Discontinued zosyn yesterday, received 6 days of treatment Plan - Continue levaquin 750 mg Qday, day 2 (received an earlier dose of zosyn for a total of 6 days). Will continue for a total of 7 days - Continue to monitor closely. - Daily labs. Qualifiers: Pneumonia type: due to Pneumococcus Laterality: bilateral Lung location: lower lobe of lung Qualified Code(s): J13 - Pneumonia due to Streptococcus pneumoniae (3) BPH w urinary obs/LUTS Current Visit: Yes Status: Acute Assessment and plan: - History of BPH status post greenlight laser treatment per patient - Patient complains of difficulty voiding present upon admission - CT abdomen and pelvis showing bilateral hydronephrosis with distended bladder likely secondary to decreased output - Urology consulted and following, appreciate recommendations - Portillo catheter in place, adequate output of pale yellow urine - -2.3 L net balance since admission Plan - Per urology, patient is okay for discharge. - Portillo catheter to remain in place and patient is to follow-up as outpatient with urology (4) CAD (coronary artery disease), [place] coronary artery Current Visit: Yes Status: Chronic Assessment and plan: - Continue aspirin, Plavix, Toprol XL and Lipitor. - No complaints of CP currently. Qualifiers: [place] vs. transplanted heart: [place] heart Associated angina: without angina Qualified Code(s): I25.10 - Atherosclerotic heart disease of [place] coronary artery without angina pectoris (5) Diabetes type 2, controlled Current Visit: Yes Status: Chronic Assessment and plan: BS well controlled. 99 this AM. - a1c of 12.7% on 03/02/17 Plan - SSI, levemir 15 units BID - Will need outpatient adjustment of medications to ensure better glycemic control. Qualifiers: Diabetes mellitus complication status: with hyperglycemia Diabetes mellitus termite control servicer insulin use: without termite control servicer use Qualified Code(s): E11.65 - Type 2 diabetes mellitus with hyperglycemia (6) Diastolic heart failure Current Visit: Yes Status: Acute Assessment and plan: Improving PO Lasix 20mg BID Echo on 05/12/16 found LVEF 50-55% with evidence of mild diastolic dysfunction of the left ventricle. Strict I/O and daily weight. Qualifiers: Heart failure chronicity: chronic Qualified Code(s): I50.32 - Chronic diastolic (congestive) heart failure (7) Colitis Current Visit: Yes Status: Suspected Assessment and plan: - CT A/P on 03/04/17 found wall thickening in the sigmoid colon suspicious for colitis vs malignancy - on Levaquin for PNA. No complaints of diarrhea, abdominal pain in LLQ. - Patient may need outpatient colonoscopy after discharge as further work-up. (8) Transaminitis Current Visit: Yes Status: Acute Assessment and plan: - Likely due to sepsis secondary to PNA - Trending down - Liver US on 03/05/17 found no cholelithiasis nor significant dilation of the common duct. And no acute inflammatory abnormality is appreciated. Plan - Continue to monitor, appears to be improving with treatment of underlying conditions. (9) DVT prophylaxis Current Visit: Yes Status: Acute Assessment and plan: - Continue SQ heparin 5000 units q12 hours. - Time Spent With Patient 25 - 35 minutes - Subjective Interval history: Patient seen and examined at bedside this morning. He states that overall he is feeling better, and denies any symptoms of shortness of breath, cough, fevers , chills. He does admit to some moderate discomfort in the suprapubic region which has been present since prior to admission. All questions were answered this morning. He is wondering when he will be able to go home as well as what the plan is for his prostate. - Constitutional Vitals: Temp Pulse Resp BP Pulse Ox 98.0 F 65 18 132/85 97 03/09/17 07:44 03/09/17 08:15 03/09/17 07:44 03/09/17 07:44 03/09/17 07:44 General appearance: Present: cooperative, A&O X 3, obese, answers questions appropriately Exam: Gen.: Vitals noted. No acute distress. AAOx3 HEENT: PERRL/EOMI, oropharynx clear, Normoceph alic, atraumatic. No dentition Cardiac: RRR, no murmur, +S1/S2 Pulmonary: left lower and middle lobe with significant rails. no wheezes or rhonchi, equal chest expansion. Speaking in full sentences on 4 L of oxygen Abdomen: soft, nontender, BS noted, no guarding MSK: no joint swelling noted Extremities: no BLE edema, nontender calf, no cyanosis or clubbing Neuro: A&Ox3, moves all extremities, no focal deficits Psych: Appropriate mood and behavior Internal Medicine: Result - Labs CBC & Chem 7: 03/08/17 06:41 03/08/17 06:41 - ABG Interpretation ABG results: ABG ABG pH 7.43 pH Units (7.32-7.45) 03/04/17 15:36 ABG pCO2 46 mmHg (35-45) H 03/04/17 15:36 ABG pO2 63 mmHg (85-104) L 03/04/17 15:36 ABG O2 Saturation 92 % (95-98) L 03/04/17 15:36 PT/INR, D-dimer PT 10.1 Seconds (9.4-12.1) 03/01/17 16:20 Consult Discharge Plan - Plan Referrals: Cyrus Coyne DO [Primary Care Provider] - 03/16/17 1:30 pm () <Tone Elise - Last Filed: 03/09/17 17:07> Date of Encounter: 03/09/17 - Assessment and plan (1) Acute respiratory failure with hypoxia Current Visit: Yes Status: Acute (2) Diastolic heart failure Current Visit: Yes Status: Acute Qualifiers: Heart failure chronicity: chronic Qualified Code(s): I50.32 - Chronic diastolic (congestive) heart failure (3) Pneumonia Current Visit: Yes Status: Acute Qualifiers: Pneumonia type: due to Pneumococcus Laterality: bilateral Lung location: lower lobe of lung Qualified Code(s): J13 - Pneumonia due to Streptococcus pneumoniae (4) Tobacco use Current Visit: Yes Status: Acute (5) Bladder mass Current Visit: Yes Status: Acute (6) BPH w urinary obs/LUTS Current Visit: Yes Status: Acute (7) Colitis Current Visit: Yes Status: Suspected (8) Transaminitis Current Visit: Yes Status: Acute - Constitutional Vitals: Temp Pulse Resp BP Pulse Ox 98.3 F 64 18 113/68 92 03/09/17 16:21 03/09/17 16:21 03/09/17 16:21 03/09/17 16:21 03/09/17 16:21 Internal Medicine: Result - Labs CBC & Chem 7: 03/08/17 06:41 03/08/17 06:41 - ABG Interpretation ABG results: ABG ABG pH 7.43 pH Units (7.32-7.45) 03/04/17 15:36 ABG pCO2 46 mmHg (35-45) H 03/04/17 15:36 ABG pO2 63 mmHg (85-104) L 03/04/17 15:36 ABG O2 Saturation 92 % (95-98) L 03/04/17 15:36 PT/INR, D-dimer PT 10.1 Seconds (9.4-12.1) 03/01/17 16:20 - Attending Attestation I examined this patient and my medical decision-making was reviewed with the Resident Physician Dr. Tripp. I agree with the documented findings, disposition and treatment plan as described except to the extent set forth below. This is a 61 y/o M known bladder mass, urinary incontinence pt admitted here for acute hypoxic resp failure, pneumonia. Pt stated he is feeling lot better today. Currently breathing comfortably on RA. Denied any RUQ pain Gen:A,A, O x3 Chest: Diminished BS b/l,, mild rales. Moderate wheezing Hear; S1 S2 + a/p 1. Acute hypoxic resp failure 2. Pneumonia -Sputum +ve E. Coli, Klebsiella, Strep pneumonia 3. Sepsis - he does meet Sepsis criteria with elevated WBC, source of inf as pneumonia, Hypoxic resp failure WBC trended down Switched to PO Levaquin.. # 08/02 cont tapering PO Steroids 4. Acute pulmonary edema due to Pneumonia Improving PO lasix 5. Bladder mass / intractable lower abdomen pain Improved Urology recommend to cont Portillo f/u with them as an out for elective surgery 6. Acute colitis cont empirical abx 7. Elevated LFT's mostly due to sepsis U/S of Liver- no acute pathology Improved PT / OT eval - P Dispo- May need ECF placement
[2017-03-09] MEDS: Insulin DETEMIR 100 UNIT/ML X5UNITS SQ SCH ×2 (09:27→21:19)
[2017-03-09] MEDS: Budesonide/Formoterol 160/4.5 MDI IH SCH ×2 (10:40→20:14)
[2017-03-10] MEDS: *HR* OxyCODONE Immed Rel 15 MG TABLET PO PRN ×3 (00:08→09:49)
[2017-03-10 04:13] LABS: Basophils % 0.1 %; Eosinophils # 0.1 K/mcL (0.0-0.6); Eosinophils % 1.1 %; Hematocrit 34.3 % (37.5-50.1); Hemoglobin 11.1 g/dL (12.9-16.9); Immature Granulocytes % 1.8 % (0-4); Lymphocytes # 3.6 K/mcL (0.6-4.6); Lymphocytes % 37.3 %; Mean Corpuscular HGB Conc 32.4 g/dL (31.6-35.5); Mean Corpuscular Hemoglobin 31.2 pg (28.0-33.3); Mean Corpuscular Volume 96.3 fL (83.0-100.0); Mean Platelet Volume 8.6 fL (9.4-12.4); Monocytes # 0.6 K/mcL (0.0-1.3); Monocytes % 5.8 %; Neutrophils # 5.2 K/mcL (1.6-8.9); Platelet Count 387 K/mcL (140-400); Red Blood Count 3.56 M/mcL (4.19-5.50); Red Cell Distribution Width 13.7 % (11.5-14.5); Segmented Neutrophils % 53.9 %
[2017-03-10 04:41] LABS: Alanine Aminotransferase 29 Units/L (7-52); Albumin/Globulin Ratio 1.1 (1.1-2.2); Alkaline Phosphatase 190 Units/L (34-104); Aspartate Amino Transferase 12 Units/L (13-39); BUN/Creatinine Ratio 25 (6-26); Bilirubin,Total 0.2 mg/dL (0.3-1.0); Blood Urea Nitrogen 20 mg/dL (8-23); Carbon Dioxide 30 mEq/L (23-29); Chloride 103 mEq/L (98-107); Globulin 2.8 g/dL (2.4-3.5); Glucose 192 mg/dL (70-105); Osmolality,Calculated 298 (280-300); Potassium 4.1 mEq/L (3.5-5.1); Sodium 140 mEq/L (136-145); Total Protein 5.8 g/dL (6.4-8.9); eGFR For African Americans > 60 (> 60); eGFR For Non-African Americans > 60 (> 60)
[2017-03-10] MEDS: *HR* OxyCODONE ER (12 HR) 20 MG TABLET PO SCH (05:47)
[2017-03-10] MEDS: *HR* Heparin 5,000 UNIT/ML VIAL SQ SCH (05:48)
[2017-03-10] MEDS: Gabapentin 400 MG CAPSULE PO SCH (07:27)
[2017-03-10] MEDS: Aspirin 81 MG TAB.CHEW PO SCH (07:27)
[2017-03-10] MEDS: ALPRAZolam 0.5 MG TABLET PO SCH (07:28)
[2017-03-10] MEDS: Furosemide 20 MG TABLET PO SCH (07:28)
[2017-03-10] MEDS: Metoprolol XL (24 HR) Succ 50 MG TAB.ER.24H PO SCH (07:28)
[2017-03-10] MEDS: levoFLOXacin 750 MG TABLET PO SCH (07:28)
[2017-03-10] MEDS: *HR* HYDROmorphone (PF) 1 MG/ML SYRINGE IVP PRN (07:28)
[2017-03-10] MEDS: Nicotine 14 MG PATCH.TD24 TD SCH (07:37)
[2017-03-10] MEDS: Insulin LISPRO 300 UNITS/3 ML VIAL SQ SCH ×2 (07:57→11:59)
[2017-03-10] MEDS: Budesonide/Formoterol 160/4.5 MDI IH SCH (08:01)
[2017-03-10] MEDS: Insulin DETEMIR 100 UNIT/ML X5UNITS SQ SCH (08:30)
[2017-03-10] MEDS ORDERED: predniSONE 10 MG TABLET PO SCH (09:00)
[2017-03-10 11:50] VITALS: BP 115/75
--- NOTE | 2017-03-10 12:12 | Discharge Summary ---
Date of Encounter: 03/10/17 Time of Encounter: 12:09 - Discharge Diagnosis (1) COPD exacerbation Priority: Secondary Status: Acute (2) Pneumococcal pneumonia Priority: Secondary Status: Acute Qualifiers: Laterality: unspecified laterality Lung location: unspecified part of lung Qualified Code(s): J13 - Pneumonia due to Streptococcus pneumoniae (3) Anxiety and depression Priority: Secondary Status: Chronic (4) Acute respiratory failure with hypoxia Priority: Secondary Status: Acute (5) Diastolic heart failure Priority: Secondary Status: Acute Qualifiers: Heart failure chronicity: acute on chronic Qualified Code(s): I50.33 - Acute on chronic diastolic (congestive) heart failure (6) CAD (coronary artery disease), [place] coronary artery Priority: Secondary Status: Chronic Qualifiers: [place] vs. transplanted heart: [place] heart Associated angina: without angina Qualified Code(s): I25.10 - Atherosclerotic heart disease of [place] coronary artery without angina pectoris (7) Diabetes type 2, controlled Priority: Secondary Status: Chronic Qualifiers: Diabetes mellitus complication status: with hyperglycemia Diabetes mellitus long-term insulin use: without curber use Qualified Code(s): E11.65 - Type 2 diabetes mellitus with hyperglycemia (8) BPH w urinary obs/LUTS Priority: Primary Status: Acute (9) Tobacco abuse Priority: Secondary Status: Chronic - Discharge Medications Prescriptions: OxyCODONE ER (12 HR) [OxyCONTIN] 20 mg PO Q12HR #14 tab.er.12h Furosemide [Lasix] 20 mg PO DAILY #7 tablet levoFLOXacin [Levaquin] 750 mg PO DAILY #4 tablet Nicotine Patch [Nicoderm] 14 mg TD DAILY #30 patch.td24 Oxycodone HCl 15 mg PO Q4H PRN #20 tablet PRN Reason: Pain predniSONE [PredniSONE] 30 mg PO DAILY #12 tablet Home Medications: Citalopram [CeleXA] 20 mg PO DAILY 10/12/15 [History] Insulin Glargine [Lantus] 45 unit SQ HS 10/12/15 [History] Metformin HCl [Metformin HCl ER] 1,000 mg PO BID 10/12/15 [History] Zolpidem [Ambien] 10 mg PO HS 11/15/15 [History] Albuterol Sulfate [Albuterol Inhaler] 2 puff IH Q4H PRN 03/18/16 [History] Aspirin 81 mg PO DAILY 03/18/16 [History] Atorvastatin Calcium [Lipitor] 80 mg PO HS 03/18/16 [History] Budesonide/Formoterol 160/4.5 [Symbicort 160/4.5] 2 puff IH BIDR 03/18/16 [ History] Clopidogrel [Plavix] 75 mg PO DAILY 03/18/16 [History] Metoprolol Succinate 100 mg PO DAILY 03/18/16 [History] Nitroglycerin [Nitrostat] 0.4 mg SL Q5M PRN 03/18/16 [History] Cyclobenzaprine [Flexeril] 10 mg PO HS #5 tablet 11/09/16 [Rx] ALPRAZolam [Xanax 0.5 MG Tablet] 0.5 mg PO BID 11/25/16 [History] Gabapentin [Neurontin] 800 mg PO TID 11/25/16 [History] Cyclobenzaprine [Flexeril] 10 mg PO BID PRN #10 tablet 02/19/17 [Rx] Ibuprofen 800 mg PO QID PRN #20 tablet 02/19/17 [Rx] predniSONE [PredniSONE] 40 mg PO DAILY #10 tablet 02/19/17 [Rx] Furosemide [Lasix] 20 mg PO DAILY #7 tablet 03/10/17 [Rx] Nicotine Patch [Nicoderm] 14 mg TD DAILY #30 patch.td24 03/10/17 [Rx] OxyCODONE ER (12 HR) [OxyCONTIN] 20 mg PO Q12HR #14 tab.er.12h 03/10/17 [Rx] Oxycodone HCl 15 mg PO Q4H PRN #20 tablet 03/10/17 [Rx] levoFLOXacin [Levaquin] 750 mg PO DAILY #4 tablet 03/10/17 [Rx] predniSONE [PredniSONE] 30 mg PO DAILY #12 tablet 03/10/17 [Rx] Allergies/Adverse Reactions: 3 Allergy/AdvReac Type Severity Reaction Status Date / Time No Known Allergies Allergy Verified 02/22/17 17:38 Date of admission: 03/01/17 20:25 Primary care physician: Gudelia Hubbard Consults: 03/09/17 14:12 Consult to Occupational Therapy [CONS] Routine Comment: Evaluate, develop and implement POC Reason for Consult: evaluate and treatment Consult to Physical Therapy [CONS] Routine Comment: Evaluate, develop and implement POC Reason for Consult: eval and treatment - Patient Status Disposition: Home, Self-Care Condition: Fair Functional capacity at discharge: independent ambulation Overall status at discharge: patient is back to baseline - Discharge Instructions Instructions: Meal Planning with Diabetes Exchanges (DC), Pneumonia (DC) Follow Up With: Christian White MD [Partnered Physician] - 03/23/17 9:30 am Cyrus Coyne DO [Primary Care Provider] - 03/16/17 1:30 pm () Additional Instructions: Please follow-up with your primary care physician within one week of discharge. Follow a diabetic, low-sodium diet. Please refrain from smoking cigarettes. Take oral antibiotics for 2 more days only. Take prednisone in a tapering fashion starting with 30 mg daily for 2 days then 20 mg daily for 2 days then 10 mg daily for 2 days then stop. Take your medication list to the next PCP visit. Avoid driving while taking oxycodone. Avoid strenuous activity for the next 7 days. - Diet and Activity Activity: increase activity as tolerated Diet: diabetic diet, low fat, low cholesterol, low salt diet Hospital course: Mr. Craig is a 61 year old male with medical hx of arthritis, asthma, cardiomyopathy, CHF, COPD, CAD, CVA, diabetes controlled with insulin, GERD, HLD , HTN, previous NM, and PAD who presented to the emergency department with chief complaint of urinary retention and urinary incontinence for the past 2 days. Patient reported severe lower abdominal pain/suprapubic pain for 2 days preceding the admission. He was found to have urinary retention due to enlarged prostate and lower urinary tract obstruction. He had a Portillo catheter placed which relieved the obstruction. Urology was consulted. They recommended home straight catheterization. Okay to remove the Portillo catheter prior to discharge. Upon admission he was noted to be short of breath and hypoxic with oxygen saturation to the high 80s despite receiving supplemental oxygen. It was noted that at baseline he does not use home oxygen. He was further diagnosed with pneumonia and COPD exacerbation as well as acute on chronic diastolic heart failure together contributing to hypoxic respiratory failure. He was treated with inhaled bronchodilators, oral steroids, oral antibiotics and diuretics. He made good clinical improvement. He was weaned off supplemental oxygen and currently maintaining oxygen saturation above 96% on room air. I have provided smoking cessation counseling. We will prescribe a prednisone taper as well as completion of antibiotic course. For his bladder spasm and pain he received treatment with long-acting and immediate release oxycodone. I will prescribe a 7 day supply of Roxicodone and OxyContin. I have instructed the patient to follow up closely with his primary care physician and his urologist. He was instructed by urology regarding straight catheterization. He verbalizes understanding and agreement with the plan. Time spent discussing smoking cessation with patient: 3 to 10 minutes - Time Spent with Patient Total time spent providing and/or coordinating discharge services: Greater than 30 minutes - Constitutional Vitals: Temp Pulse Resp BP Pulse Ox 98.2 F 61 18 115/75 99 03/10/17 11:45 03/10/17 11:45 03/10/17 11:45 03/10/17 11:45 03/10/17 11:45 General appearance: Present: cooperative, A&O X 3, obese, answers questions appropriately - Respiratory Respiratory exam: Present: CTAB. Absent: accessory muscle use, rales, rhonchi, wheezes - Cardiovascular Cardiovascular exam: Present: RRR, +S1, +S2. Absent: diastolic murmur, gallop, rubs, systolic murmur
== END 2017-03-10 12:53 | disposition home or self-care (01) | DRG 725 ==
LOC: EMEROO 13:38 → 2NNU 20:25 → SUATTDRO 20:25 → 2NNU 21:18
PROVIDERS: ADMIT Hospitalist; ATTEND Internal Medicine

== ENCOUNTER 2017-09-04 15:05 | Inpatient (IN) ==
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
[2017-09-04] MEDS ORDERED: Aspirin 81 MG TAB.CHEW PO STA (15:30)
[2017-09-04] MEDS ORDERED: Ipratropium/Albuterol Neb 3 ML IH ONE (15:30)
[2017-09-04] MEDS ORDERED: *HR* HYDROcodone/Acet 5/325 mg TABLET PO ONE (15:30)
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
[2017-09-04] MEDS ORDERED: *HR* FentaNYL (PF) 100 MCG/2 ML VIAL IVP ONE ×2 (15:53→19:31)
[2017-09-04 16:18] LABS: Basophils # 0.1 K/mcL (0.0-0.2); Basophils % 0.4 %; Eosinophils # 0.1 K/mcL (0.0-0.6); Eosinophils % 0.4 %; Hematocrit 39.5 % (37.5-50.1); Hemoglobin 13.5 g/dL (12.9-16.9); Immature Granulocytes % 0.4 % (0-4); Lymphocytes % 14.6 %; Mean Corpuscular HGB Conc 34.2 g/dL (31.6-35.5); Mean Corpuscular Hemoglobin 30.3 pg (28.0-33.3); Mean Corpuscular Volume 88.8 fL (83.0-100.0); Mean Platelet Volume 8.9 fL (9.4-12.4); Monocytes # 0.4 K/mcL (0.0-1.3); Monocytes % 3.1 %; Neutrophils # 11.2 K/mcL (1.6-8.9); Platelet Count 242 K/mcL (140-400); Red Blood Count 4.45 M/mcL (4.19-5.50); Red Cell Distribution Width 14.5 % (11.5-14.5); Segmented Neutrophils % 81.1 %
[2017-09-04 16:22] LABS: Albumin 4.2 g/dL (3.5-5.7); Albumin/Globulin Ratio 1.4 (1.1-2.2); Bilirubin,Direct 0.1 mg/dL (0.0-0.2); Bilirubin,Indirect 0.5 mg/dL (0.0-1.2); Bilirubin,Total 0.6 mg/dL (0.3-1.0); Globulin 2.9 g/dL (2.4-3.5); Total Protein 7.1 g/dL (6.4-8.9)
[2017-09-04 16:23] LABS: BUN/Creatinine Ratio 16 (6-26); Blood Urea Nitrogen 17 mg/dL (8-23); Calcium 9.5 mg/dL (8.6-10.3); Carbon Dioxide 24 mEq/L (23-29); Chloride 101 mEq/L (98-107); Glucose 266 mg/dL (70-105); Osmolality,Calculated 293 (280-300); Potassium 3.5 mEq/L (3.5-5.1); Sodium 136 mEq/L (136-145); eGFR For African Americans > 60 (> 60); eGFR For Non-African Americans > 60 (> 60)
[2017-09-04 16:24] LABS: Troponin I < 0.03 ng/mL (< 0.04)
[2017-09-04 16:27] LABS: INR 1.1
[2017-09-04 16:29] LABS: Activated Partial Thrombo Time 34.8 Seconds (26.0-36.0)
[2017-09-04] MEDS ORDERED: Piperacillin/Tazobactam 3.375 GM in 0.9 % Sodium Chloride Mini Bag 100 ML IVPB ONE (16:29)
[2017-09-04 16:39] LABS: Bilirubin,Urine Negative (Negative); Blood,Urine Small (Negative); Clarity,Urine Cloudy (Clear); Color,Urine Yellow (Yellow); Glucose,Urine (UA) 100 mg/dL (Normal); Ketones,Urine Negative (Negative); Leukocyte Esterase,Urine Negative (Negative); Nitrite,Urine Negative (Negative); PH,Urine 5.5 pH Units (5.0-8.0); Protein,Urine 30 mg/dL (Neg-Trace); Specific Gravity,Urine 1.019 (1.010-1.025); Urobilinogen,Urine Normal (Normal)
[2017-09-04 16:42] LABS: Bacteria,Urine None Seen per hpf (None-Few); Hyaline Casts,Urine None Seen per lpf (None-Few); Squamous Epithelial Cell,Urine Many per lpf (None-Few); WBC,Urine 0-3 per hpf (0-3)
[2017-09-04] MEDS ORDERED: *HR* HYDROmorphone (PF) 1 MG/ML SYRINGE IVP ONE (16:47)
[2017-09-04] MEDS ORDERED: Naloxone 0.4 MG/ML INJ IVP PRN (18:53)
[2017-09-04] MEDS ORDERED: Nitroglycerin 0.4 MG TAB.SUBL SL PRN (19:22)
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
[2017-09-04] MEDS ORDERED: D5% in Water 1,000 ML IVC PRN (19:37)
[2017-09-04] MEDS ORDERED: Dextrose Gel 15 GM/37.5 ML TUBE PO PRN ×2 (19:37)
[2017-09-04] MEDS ORDERED: *HR* Dextrose 50 % in Water (Syg) 50 ML SYRINGE IVP PRN (19:37)
[2017-09-04] MEDS ORDERED: NON-FORMULARY MEDICATION 1 EACH EACH (Insulin Glargine,Hum.Rec.Anlog [Basaglar Kwikpen U-1 SQ SCH (21:00)
[2017-09-04] MEDS ORDERED: Insulin LISPRO 300 UNITS/3 ML VIAL SQ SCH (21:00)
[2017-09-04 21:01] LABS: Estimated Average Glucose 214 mg/dl; Hemoglobin A1C 9.1 %
[2017-09-04] MEDS: Budesonide/Formoterol 160/4.5 MDI IH SCH (22:43)
[2017-09-04] MEDS: Gabapentin 400 MG CAPSULE PO SCH (22:43)
[2017-09-04] MEDS: ALPRAZolam 1 MG TABLET PO SCH (22:44)
[2017-09-04] MEDS: Insulin DETEMIR 100 UNIT/ML X5UNITS SQ SCH (22:48)
[2017-09-04] MEDS: *HR* OxyCODONE Immed Rel 15 MG TABLET PO SCH (22:51)
[2017-09-05] MEDS: *HR* OxyCODONE Immed Rel 15 MG TABLET PO SCH ×3 (02:08→12:39)
[2017-09-05] MEDS: Piperacillin/Tazobactam 3.375 GM in 0.9 % Sodium Chloride Mini Bag 100 ML IVPB SCH ×2 (05:17→13:21)
[2017-09-05 06:36] LABS: Basophils % 0.4 %; Eosinophils # 0.1 K/mcL (0.0-0.6); Eosinophils % 1.5 %; Hematocrit 36.4 % (37.5-50.1); Hemoglobin 12.1 g/dL (12.9-16.9); Immature Granulocytes % 0.3 % (0-4); Lymphocytes # 2.2 K/mcL (0.6-4.6); Lymphocytes % 32.2 %; Mean Corpuscular HGB Conc 33.2 g/dL (31.6-35.5); Mean Corpuscular Hemoglobin 29.2 pg (28.0-33.3); Mean Corpuscular Volume 87.9 fL (83.0-100.0); Monocytes # 0.3 K/mcL (0.0-1.3); Monocytes % 4.3 %; Neutrophils # 4.1 K/mcL (1.6-8.9); Platelet Count 235 K/mcL (140-400); Red Blood Count 4.14 M/mcL (4.19-5.50); Red Cell Distribution Width 14.6 % (11.5-14.5); Segmented Neutrophils % 61.3 %
[2017-09-05 06:57] LABS: Troponin I < 0.03 ng/mL (< 0.04)
[2017-09-05 07:01] LABS: BUN/Creatinine Ratio 20 (6-26); Blood Urea Nitrogen 16 mg/dL (8-23); Carbon Dioxide 24 mEq/L (23-29); Chloride 106 mEq/L (98-107); Glucose 147 mg/dL (70-105); Osmolality,Calculated 292 (280-300); Potassium 3.5 mEq/L (3.5-5.1); Sodium 139 mEq/L (136-145); eGFR For African Americans > 60 (> 60); eGFR For Non-African Americans > 60 (> 60)
[2017-09-05] MEDS: Budesonide/Formoterol 160/4.5 MDI IH SCH (07:40)
[2017-09-05] MEDS: Insulin LISPRO 300 UNITS/3 ML VIAL SQ SCH ×3 (08:00→16:26)
[2017-09-05] MEDS: ALPRAZolam 1 MG TABLET PO SCH (08:10)
[2017-09-05] MEDS: Gabapentin 400 MG CAPSULE PO SCH ×2 (08:10→15:01)
[2017-09-05] MEDS: Insulin DETEMIR 100 UNIT/ML X5UNITS SQ SCH (08:20)
[2017-09-05] MEDS ORDERED: Furosemide 20 MG TABLET PO SCH (09:00)
[2017-09-05] MEDS ORDERED: Lisinopril-HCTZ 20-12.5mg TABLET PO SCH (09:00)
[2017-09-05] MEDS ORDERED: Metoprolol XL (24 HR) Succ 50 MG TAB.ER.24H PO SCH (09:00)
[2017-09-05] MEDS ORDERED: Aspirin 81 MG TAB.CHEW PO SCH (09:00)
--- NOTE | 2017-09-05 11:50 | Internal Med Progress Note ---
Date of Encounter: 09/05/17 Time of Encounter: 11:41 - Time Spent With Patient Total time spent is greater than 50% in coordination of care (as documented) at patient's floor/unit and/or counseling patient: - Subjective Interval history: Mr. Craig is a patient who was admitted through the ED on for multifocal reticular opacities with mid and lower left lung atelectasis and pneumonia. He continues on IV vancomycin and Zosyn today he is requesting to go home states that he wants to go home and take the medicine by mouth. 2 discussed with the patient today the need to stay in the hospital home for IV antibiotic therapy to decrease his pneumonia little better before he goes home on by mouth therapy. 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 Did ask the patient to give us 24 hours of further IV antibiotic use and he stated he would think about it. MRI was completed today and does show minimal chronic small vessel ischemic changes and no acute brain abnormality. CT scan of the thorax completed on showed no acute fracture of thoracic spine CT scan of the lumbar spine showed no acute traumatic injury with a mild multilevel disc degenerative changes. CT scan of the brain completed on September 04 shows generalized straightening of the normal cervical lordosis multilevel degenerative disc disease of the mid to lower cervical spine no evidence of acute fracture or misalignment, with no acute intracranial abnormality He continues to complain of severe headache due to a fall prior to his admission , he currently is receiving oxycodone 15 mg per schedule at 5 times per day. Patient is a smoker, offered him the nicotine patch and he refused - Constitutional Vitals: Temp Pulse Resp BP Pulse Ox 98.2 F 78 16 111/73 91 09/05/17 07:10 09/05/17 07:10 09/05/17 07:40 09/05/17 07:10 09/05/17 07:40 General appearance: Present: A&O X 3 - Head Head exam: Present: atraumatic, normal inspection - ENT ENT exam: Present: mucous membranes moist - Neck Neck exam general surgery: Present: full ROM, supple, trachea midline - Respiratory Respiratory exam: Present: decreased breath sounds, prolonged expiratory phase, rales, rhonchi, wheezes Additional comments: Remains in O2 per N[place] @ 2LPM , Congested non-productive cough, mild dyspnea at rest. SPO2 with oxygen at 2 L remains hypoxemic at 91% - Expanded Respiratory Exam Location: decreased breath sounds: Left, Upper, Lower, rhonchi: Left, Right, Upper, Lower, wheezes: Left, Right, Upper, Lower - Cardiovascular Cardiovascular exam: Present: RRR - Back Exam Back exam: Present: full ROM - Neurological Exam Neurological exam: Present: alert, CN II-XII intact, oriented X3, no focal deficits Internal Medicine: Result - Labs CBC & Chem 7: 09/05/17 05:27 09/05/17 05:27 Labs: Short CBC 09/05/17 Range/Units 05:27 WBC 6.7 D (4.3-11.1) K/mcL Hgb 12.1 L (12.9-16.9) g/dL Hct 36.4 L (37.5-50.1) % Plt Count 235 (140-400) K/mcL Neutrophils # 4.1 (1.6-8.9) K/mcL BMP 09/05/17 05:27 Sodium 139 Potassium 3.5 Chloride 106 Carbon Dioxide 24 BUN 16 Creatinine 0.80 Glucose 147 H Calcium 9.0 Cardiac Enzymes 09/05/17 Range/Units 05:27 Troponin I < 0.03 (< 0.04) ng/mL - ABG Interpretation ABG results: PT/INR, D-dimer PT 12.0 Seconds (9.4-12.1) 09/04/17 15:51 - Pulse Oximetry Interpretation Digit-Finger Pulse Oximetry Readin Actions taken: none - Impressions Impressions Brain MRI 09/05/17 21:28 IMPRESSION: Minimal chronic small vessel ischemic changes. No acute brain parenchymal abnormality. Minimal mucoperiosteal thickening of the sinuses. D/ / 09/05/2017 09:49:28 Corina Dacosta MD / shari Interpreting Provider: Corina Dacosta MD Consult Discharge Plan - Plan Referrals: Cyrus Coyne DO [Primary Care Provider] -
--- NOTE | 2017-09-05 13:42 | Neurology - Consult Note ---
Date of Encounter: 09/05/17 Time of Encounter: 13:37 Assessment and Plan (1) Slurred speech Current Visit: Yes Status: Acute Pt. experienced transient slurred speech and balance difficulty which has now resolved. Although he does have stroke risk factors, i'm not convinced that this incident was due to TIA. MRI was negative for acute ischemia. Suspect medication effect. Perhaps the combination of xanax and oxycodone. For completeness however I would recommend carotid Doppler study. Maintain ASA and plavix, statin therapy and antihypertensives. Aggressive mgmt of stroke risk factors is paramount. I will reevaluate him at your request. History of Present Illness HPI: The chart was reviewed, the patient was seen and examined. Mr. Craig is a 61 year old male seen for neurologic consultation secondary to strokelike symptomatology. Apparently this gentleman developed a left facial droop and some gait instability about 2 days prior to his presentation to the medical center. The patient apparently presented to the ED for assessment of the symptoms one day prior but refused to wait to be seen in the left without being seen. Apparently on the day that he was seen he had some balance instability and fell while at home in the bathroom. Upon arrival he was seen and evaluated and at that time was not a candidate for TPA. MRI scan of the brain revealed minimal white matter hyperintensities however no evidence of acute ischemic event. Echocardiogram was negative, carotid Doppler study has not been completed. Patient at this time is alert and oriented and back to his normal cognitive baseline. Opacities were identified in the left mid and lower lung suggestive of pneumonia. Past Med Surg Social Fam HX - Past Medical History Medical history: arthritis, asthma, cardiomyopathy, CHF, COPD, coronary artery disease, CVA, diabetes, GERD, hyperlipidemia, hypertension, myocardial infarction, peripheral artery disease, other Additional medical history: brain aneurysms x3 Psychiatric history: anxiety, depression, other - Past Surgical History Surgical History: angioplasty/stent, cholecystectomy, herniorrhaphy, knee replacement, orthopedic, other, other Additional surgical history: 4 cardiac stents. B/L knee surgeries - Social History Smoking Status: Current every day smoker Packs per day: 1/2 Smokeless Tobacco Status: No Alcohol use: none Drug use: none - Family History Mother Family Member Ethnicity: Non- Living Status: Hx Family Cardiac Disorders: Yes ([place]) Hx Family Respiratory Disorders: Yes (COPD) Hx Family Cancer: Yes (Lung) Hx Family GI Disorders: No Hx Family Genitourinary Disorders: No Hx Family Endocrine Disorder: Yes (DM) Hx Family Musculoskeletal Disorders: No Hx Family Neuromuscular Disorders: No Hx Family Neurologic Disorders: No Hx Family HEENT Disorders: No Hx Family Autoimmune Disorders: No Hx Family Reproductive Disorders: No Hx Family Psychosocial Disorders: No Hx Family Medical Disorders: No Father Family Member Ethnicity: Non- Living Status: Hx Family Cardiac Disorders: No Hx Family Respiratory Disorders: No Hx Family Cancer: Yes (Colon) Hx Family GI Disorders: No Hx Family Genitourinary Disorders: No Hx Family Endocrine Disorder: No Hx Family Musculoskeletal Disorders: No Hx Family Neuromuscular Disorders: No Hx Family Neurologic Disorders: No Hx Family HEENT Disorders: No Hx Family Autoimmune Disorders: No Hx Family Reproductive Disorders: No Hx Family Psychosocial Disorders: No Hx Family Medical Disorders: No Medications and Allergies Citalopram [CeleXA] 40 mg PO DAILY 10/12/15 [History] Zolpidem [Ambien] 10 mg PO HS 11/15/15 [History] Albuterol Sulfate [Albuterol Inhaler] 2 puff IH Q4H PRN 03/18/16 [History] Aspirin 81 mg PO DAILY 03/18/16 [History] Atorvastatin Calcium [Lipitor] 80 mg PO HS 03/18/16 [History] Budesonide/Formoterol 160/4.5 [Symbicort 160/4.5] 2 puff IH BIDR 03/18/16 [ History] Clopidogrel [Plavix] 75 mg PO DAILY 03/18/16 [History] Nitroglycerin [Nitrostat] 0.4 mg SL Q5M PRN 03/18/16 [History] Gabapentin [Neurontin] 800 mg PO TID 11/25/16 [History] Ibuprofen 800 mg PO QID PRN #20 tablet 02/19/17 [Rx] Furosemide [Lasix] 20 mg PO DAILY #7 tablet 03/10/17 [Rx] Lidocaine Patch [Lidoderm 5% patch] 1 each TP DAILY PRN #3 adh..patch 07/23/17 [ Rx] ALPRAZolam [Xanax 1 MG Tablet] 1 mg PO BID 09/04/17 [History] Insulin Glargine,Hum.rec.anlog [Basaglar Kwikpen U-100] 30 unit SQ BID 09/04/17 [History] Lisinopril-HCTZ 20-12.5 [Prinzide 20-12.5] 1 tab PO DAILY 09/04/17 [History] Meloxicam [Mobic] 15 mg PO DAILY 09/04/17 [History] Metformin HCl [Metformin HCl ER] 1,000 mg PO BID 09/04/17 [History] Metoprolol Succinate [Toprol Xl] 100 mg PO DAILY 09/04/17 [History] Oxycodone HCl 15 mg PO 5XD 09/04/17 [History] 3 Allergy/AdvReac Type Severity Reaction Status Date / Time codeine AdvReac Vomiting Verified 09/04/17 15:10 All Systems: The remainder of the systems were reviewed and are negative Review of Systems: Balance of the systems review is negative. Physical Examination - Vital Signs Vital Signs: Initial Vital Signs Temp Pulse Resp BP Pulse Ox 98 F 106 20 133/77 92 09/04/17 15:10 09/04/17 15:10 09/04/17 15:10 09/04/17 15:10 09/04/17 15:10 - Neurologic Detailed motor examination: other (Normal strength, bulk and tone of the deltoids, biceps, and triceps symmetrically. Symmetrical atophy of the hand intrinsics is present. Giveway weakness of the hip flexors bilaterally. Otherwise normal strength bulk and tone of the legs.) Detailed sensory examination: intact Reflex and gait examination: other (Deep tendon reflexes are diminished throughout.) Mental Status Examination: awake, alert, oriented to person, oriented to place, oriented to time, follows commands appropriately Cranial nerve examination: PERRL, EOMI, visual casiano intact, corneal reflexes brisk symmetrically, sensory to face intact, mastication intact, no facial asymmetry is present, no dysarthria, hearing is intact symmetrically, soft palate elevates bilaterally upon phonation, gag reflex intact, flexes SCM and trapezius muscles symmetrically with full power, tongue protrudes midline, no atrophy or facial fasiculations present Cerebellar examination: no dysmetria, performs finger to nose and heel to quiroga symmetrically without ataxia Results - Laboratory Findings CBC and BMP: 09/05/17 05:27 09/05/17 05:27 Abnormal lab findings: Abnormal lab results RBC 4.14 M/mcL (4.19-5.50) L 09/05/17 05:27 Hgb 12.1 g/dL (12.9-16.9) L 09/05/17 05:27 Hct 36.4 % (37.5-50.1) L 09/05/17 05:27 RDW 14.6 % (11.5-14.5) H 09/05/17 05:27 MPV 9.0 fL (9.4-12.4) L 09/05/17 05:27 Glucose 147 mg/dL (70-105) H 09/05/17 05:27 POC Glucose 311 mg/dL (70-99) H 09/04/17 20:09 Hemoglobin A1c 9.1 % (-5.6) H 09/04/17 15:51 AST 46 Units/L (13-39) H 09/04/17 15:51 ALT 58 Units/L (7-52) H 09/04/17 15:51 Alkaline Phosphatase 191 Units/L (34-104) H 09/04/17 15:51 Lipase 8 Units/L (11-82) L 09/04/17 15:51 Urine Clarity Cloudy (Clear) A 09/04/17 16:20 Urine Protein 30 mg/dL (Neg-Trace) H 09/04/17 16:20 Urine Glucose (UA) 100 mg/dL (Normal) H 09/04/17 16:20 Urine Blood Small (Negative) H 09/04/17 16:20 Urine Microscopic RBC 3-5 per hpf (0-3) H 09/04/17 16:20 Ur Squamous Epith Cells Many per lpf (None-Few) H 09/04/17 16:20 Consult Discharge Plan - Plan Referrals: Cyrus Coyne DO [Primary Care Provider] -
[2017-09-05] MEDS ORDERED: ALPRAZolam 1 MG TABLET PO PRN (15:45)
[2017-09-05] MEDS ORDERED: 0.9 % Sodium Chloride 1,000 ML ONE (15:58)
[2017-09-05] MEDS ORDERED: *HR* OxyCODONE Immed Rel 15 MG TABLET PO SCH (16:00)
[2017-09-05] MEDS ORDERED: 0.9 % Sodium Chloride 1,000 ML IVC SCH (16:00)
[2017-09-05 16:24] VITALS: BP 110/70
[2017-09-05] MEDS ORDERED: Vancomycin 0 MG in 0.9 % Sodium Chloride 250 ML IVPB SCH (17:00)
--- NOTE | 2017-09-07 11:20 | Electrocardiograph Report ---
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
--- NOTE | 2017-09-12 20:45 | Event Note ---
Date of Encounter: 09/05/17 Time of Encounter: 15:00 LEFT AMA After multiple attempts to discourage patient from leaving the hospital AMA, He continued to sign himself out. He was advised of his increased risk of worsening of his illness, need for IV antibiotic use for improvement and clearance of his pneumonia. increased decompensation of his respiratory status , increase risk no further treatment with PO ATB, and readmission. Patient decided to leave AMA .
== END 2017-09-05 17:04 | disposition left against medical advice (07) | DRG 190 ==
LOC: EMEROO 15:05 → 3BNU 15:05
PROVIDERS: ADMIT Internal Medicine Nephrology; ATTEND Internal Medicine Nephrology

== ENCOUNTER 2017-11-06 17:55 | Observation (INO) ==
[2017-11-06] MEDS ORDERED: *HR* LORazepam 2 MG/ML VIAL IVP ONE (18:12)
--- NOTE | 2017-11-06 18:26 | Emergency Department Note ---
Disposition Clinical Impression: Seizure, Generalized weakness Altered mental status Qualifiers: Altered mental status type: unspecified Qualified Code(s): R41.82 - Altered mental status, unspecified Disposition: Admitted As Inpatient Condition: Fair Referrals: Cyrus Coyne DO [Primary Care Provider] - Forms: ED Satisfaction Letter General Adult HPI - General Chief complaint: ED Altered Mental Status Stated complaint: seizure Time Seen by Provider: 11/06/17 18:07 Source: family, EMS Mode of arrival: EMS Limitations: altered mental status Nursing Notes Reviewed: Yes Vital Signs Reviewed: Yes - History of Present Illness HPI Narrative: 62-year-old male with complex past medical history including multiple CVAs, subclinical seizures and coronary artery disease with multiple stents currently on Plavix presenting to the emergency department chief complaint of altered mental status and seizure. According to EMS and family members today when the patient woke up he was having generalized weakness. He could barely stand by himself. His legs are giving being out from under him. Later in the day patient stated that he was not feeling well and started having a generalized tonic-clonic seizure that lasted approximately 2 minutes. EMS was called at that time. When EMS arrived the seizure was arty aborted. No medications were given at that time. When patient arrived he was not at baseline according to family. He was picking at the stickers on his chest and try to take the blood pressure cuff off. Patient was able to answer questions appropriately but was not alert and oriented 3. Patient describes a severe headache. Pain Scale: 0 - Related Data Home Medications Medication Instructions Recorded Confirmed Citalopram [CeleXA] 40 mg PO DAILY 10/12/15 11/06/17 Zolpidem [Ambien] 10 mg PO HS 11/15/15 11/06/17 Albuterol Sulfate [Albuterol 2 puff IH Q4H PRN 03/18/16 10/07/17 Inhaler] Aspirin 81 mg PO DAILY 03/18/16 11/06/17 Atorvastatin Calcium [Lipitor] 80 mg PO HS 03/18/16 11/06/17 Budesonide/Formoterol 160/4.5 2 puff IH BIDR 03/18/16 11/06/17 [Symbicort 160/4.5] Clopidogrel [Plavix] 75 mg PO DAILY 03/18/16 11/06/17 Nitroglycerin [Nitrostat] 0.4 mg SL Q5M PRN 03/18/16 11/06/17 Gabapentin [Neurontin] 800 mg PO TID 11/25/16 11/06/17 ALPRAZolam [Xanax 1 MG Tablet] 1 mg PO BID 09/04/17 11/06/17 Insulin Glargine,Hum.rec.anlog 30 unit SQ BID 09/04/17 10/07/17 [Basaglar Kwikpen U-100] Lisinopril-HCTZ 20-12.5 [Prinzide 1 tab PO DAILY 09/04/17 10/07/17 20-12.5] Meloxicam [Mobic] 15 mg PO DAILY 09/04/17 10/07/17 Metformin HCl [Metformin HCl ER] 1,000 mg PO BID 09/04/17 11/06/17 Metoprolol Succinate [Toprol Xl] 100 mg PO DAILY 09/04/17 10/07/17 Oxycodone HCl 15 mg PO Q4H 09/04/17 11/06/17 Previous Rx's Medication Instructions Recorded Ibuprofen 800 mg PO QID PRN #20 tablet 02/19/17 Furosemide [Lasix] 20 mg PO DAILY #7 tablet 03/10/17 Allergies Allergy/AdvReac Type Severity Reaction Status Date / Time codeine AdvReac Vomiting Verified 11/06/17 20:00 All systems ED: reviewed and negative except as stated. Constitutional: Reports: weakness. Denies: fever, chills Eyes: Reports: as per HPI ENT ED: Reports: as per HPI Cardiovascular: Denies: chest pain, palpitations, dyspnea on exertion Respiratory: Denies: cough, dyspnea, wheezes Gastrointestinal: Reports: abdominal pain. Denies: nausea, vomiting, diarrhea Genitourinary: Reports: as per HPI Musculoskeletal: Reports: as per HPI Integumentary: Reports: as per HPI Neurological: Reports: headache, weakness. Denies: numbness, paresthesias Psychiatric: Reports: as per HPI Endocrine: Reports: as per HPI Hematological/Lymphatic: Reports: as per HPI Allergic/Immunologic: Reports: as per HPI Past Medical History - Past Medical History Attestation: Yes The following information was validated with the patient. Medical history: Reports: arthritis, asthma, cardiomyopathy, CHF, COPD, coronary artery disease, CVA, diabetes, GERD, hyperlipidemia, hypertension, myocardial infarction, peripheral artery disease, other Surgical history: Reports: angioplasty/stent, cholecystectomy, herniorrhaphy, knee replacement, orthopedic, other, other Psychiatric history: Reports: anxiety, depression, other - Social History Smoking Status: Current every day smoker Smokeless Tobacco Status: No Alcohol use: Reports: none Drug use: Reports: none Physical Exam - General Limitations: altered mental status General appearance: alert - Head Head exam: atraumatic, normocephalic, normal inspection - Eye Eye exam: Present: normal appearance, PERRL, EOMI. Absent: scleral icterus, conjunctival injection - ENT ENT exam: mucous membranes dry - Neck Neck exam: Present: normal inspection, full ROM. Absent: tenderness, meningismus - Chest Chest inspection: Present: normal inspection, symmetric chest wall rise. Absent : tenderness, rash - Respiratory Respiratory exam: Present: normal lung sounds bilaterally. Absent: respiratory distress, wheezes - Cardiovascular Cardiovascular exam: Present: regular rate, normal rhythm, normal heart sounds - Abdominal Exam Abdominal exam: Present: soft, tenderness (Diffuse, mild). Absent: distention, guarding, rebound, rigidity - Extremities Exam Extremities exam: Present: full ROM, other (Multiple superficial abrasions noted to the bilateral upper extremities) - Neurological Exam Neurological exam: Present: alert, CN II-XII intact. Absent: motor sensory deficit - Skin Skin exam: Present: warm Course Course Narrative: 62-year-old male presenting to the emergency department with chief complaint of altered mental status and seizure. On exam patient can be easily redirected but is only alert. He is not oriented to place or time. Physical exam shows a nonfocal neurological exam and some abdominal tenderness but otherwise benign. Patient is hemodynamically stable at this time. Due to patient's history of multiple strokes and aneurysms in the past a stat CT of the head was completed which was within normal limits. Basic laboratory analysis was also completed due to patient's altered mental status. Patient's laboratory analysis shows glucose in the urine but otherwise mostly benign in baseline for the patient. Due to patient's continued altered mental status and weakness we will plan to admit him for further evaluation. Patient remained hemodynamically stable while he was in the emergency department. I spoke with the hospitalist on-call who agrees to accept the patient at this time. Vital Signs Temperature 98.5 F 09/14/18 17:57 Pulse Rate 98 11/06/17 17:57 Respiratory Rate 20 11/06/17 17:57 Blood Pressure 168/89 11/06/17 17:57 O2 Sat by Pulse Oximetry 97 11/06/17 17:57 Temperature 98.5 F 11/06/17 17:57 Pulse Rate 95 11/06/17 18:39 Respiratory Rate 16 11/06/17 18:39 Blood Pressure 153/85 11/06/17 18:39 O2 Sat by Pulse Oximetry 96 11/06/17 18:39 Oxygen Delivery Oxygen Delivery Room Air Medical Decision Making - Lab Data Result diagrams: 11/06/17 18:14 11/06/17 18:14 Lab Results 11/06/17 11/06/17 11/06/17 Range/Units 18:14 18:14 18:14 WBC 10.9 D (4.3-11.1) K/mcL RBC 4.22 (4.19-5.50) M/mcL Hgb 12.7 L (12.9-16.9) g/dL Hct 37.4 L (37.5-50.1) % MCV 88.6 (83.0-100.0) fL MCH 30.1 (28.0-33.3) pg MCHC 34.0 (31.6-35.5) g/dL RDW 14.7 H (11.5-14.5) % Plt Count 239 (140-400) K/mcL MPV 9.1 L (9.4-12.4) fL Immature Gran % 0.2 (0-4) % Seg Neutrophils % 84.5 % Lymphocytes % 11.7 % Monocytes % 3.2 % Eosinophils % 0.1 % Basophils % 0.3 % Neutrophils # 9.2 H (1.6-8.9) K/mcL Lymphocytes # 1.3 (0.6-4.6) K/mcL Monocytes # 0.4 (0.0-1.3) K/mcL Eosinophils # 0.0 (0.0-0.6) K/mcL Basophils # 0.0 (0.0-0.2) K/mcL PT 11.3 (9.4-12.1) Seconds INR 1.0 APTT 32.7 (26.0-36.0) Seconds Sodium 136 (136-145) mEq/L Potassium 3.9 (3.5-5.1) mEq/L Chloride 103 (98-107) mEq/L Carbon Dioxide 22 L (23-29) mEq/L BUN 10 (8-23) mg/dL Creatinine 0.80 (0.70-1.30) mg/dL Est GFR ( Amer) > 60 (> 60) Est GFR (Non-Af Amer) > 60 (> 60) BUN/Creatinine Ratio 13 (6-26) Glucose 273 H (70-105) mg/dL Calculated Osmolality 291 (280-300) Calcium 9.2 (8.6-10.3) mg/dL Total Bilirubin 0.3 (0.3-1.0) mg/dL Direct Bilirubin 0.1 (0.0-0.2) mg/dL Indirect Bilirubin 0.2 (0.0-1.2) mg/dL AST 23 (13-39) Units/L ALT 22 (7-52) Units/L Alkaline Phosphatase 163 H (34-104) Units/L Troponin I < 0.03 (< 0.04) ng/mL Serum Total Protein 6.4 (6.4-8.9) g/dL Albumin 3.8 (3.5-5.7) g/dL Globulin 2.6 (2.4-3.5) g/dL Albumin/Globulin Ratio 1.5 (1.1-2.2) Urine Color (Yellow) Urine Clarity (Clear) Urine pH (5.0-8.0) pH Units Ur Specific [place] (1.010-1.025) Urine Protein (Neg-Trace) mg/dL Urine Glucose (UA) (Normal) mg/dL Urine Ketones (Negative) mg/dL Urine Blood (Negative) Urine Nitrite (Negative) Urine Bilirubin (Negative) Urine Urobilinogen (Normal) mg/dL Ur Leukocyte Esterase (Negative) Ethyl Alcohol < 10 (Less than 10) mg/dL 11/06/17 Range/Units 19:53 WBC (4.3-11.1) K/mcL RBC (4.19-5.50) M/mcL Hgb (12.9-16.9) g/dL Hct (37.5-50.1) % MCV (83.0-100.0) fL MCH (28.0-33.3) pg MCHC (31.6-35.5) g/dL RDW (11.5-14.5) % Plt Count (140-400) K/mcL MPV (9.4-12.4) fL Immature Gran % (0-4) % Seg Neutrophils % % Lymphocytes % % Monocytes % % Eosinophils % % Basophils % % Neutrophils # (1.6-8.9) K/mcL Lymphocytes # (0.6-4.6) K/mcL Monocytes # (0.0-1.3) K/mcL Eosinophils # (0.0-0.6) K/mcL Basophils # (0.0-0.2) K/mcL PT (9.4-12.1) Seconds INR APTT (26.0-36.0) Seconds Sodium (136-145) mEq/L Potassium (3.5-5.1) mEq/L Chloride (98-107) mEq/L Carbon Dioxide (23-29) mEq/L BUN (8-23) mg/dL Creatinine (0.70-1.30) mg/dL Est GFR ( Amer) (> 60) Est GFR (Non-Af Amer) (> 60) BUN/Creatinine Ratio (6-26) Glucose (70-105) mg/dL Calculated Osmolality (280-300) Calcium (8.6-10.3) mg/dL Total Bilirubin (0.3-1.0) mg/dL Direct Bilirubin (0.0-0.2) mg/dL Indirect Bilirubin (0.0-1.2) mg/dL AST (13-39) Units/L ALT (7-52) Units/L Alkaline Phosphatase (34-104) Units/L Troponin I (< 0.04) ng/mL Serum Total Protein (6.4-8.9) g/dL Albumin (3.5-5.7) g/dL Globulin (2.4-3.5) g/dL Albumin/Globulin Ratio (1.1-2.2) Urine Color Yellow (Yellow) Urine Clarity Clear (Clear) Urine pH 5.5 (5.0-8.0) pH Units Ur Specific [place] 1.030 H (1.010-1.025) Urine Protein 30 H (Neg-Trace) mg/dL Urine Glucose (UA) >=1000 H (Normal) mg/dL Urine Ketones Trace H (Negative) mg/dL Urine Blood Small H (Negative) Urine Nitrite Negative (Negative) Urine Bilirubin Negative (Negative) Urine Urobilinogen Normal (Normal) mg/dL Ur Leukocyte Esterase Negative (Negative) Ethyl Alcohol (Less than 10) mg/dL - EKG Data EKG #1 EKG attestation: Yes I reviewed and interpreted this EKG. EKG results narrative: Sinus tachycardia. 101 bpm. VA interval 158, QRS 89, QTC 474. No sign of acute ST segment elevation or ischemia. Compared to previous EKG completed on 10/07/2017 no significant changes noted Attestation Statement - Attestation Attestation: I, Blaise Chavez DO, examined this patient [id number] and my medical decision-making was reviewed with Dr. Elizabeth Kang, Resident Physician. I agree with the documented findings, disposition and treatment plan as described except to the extent set forth below. Please see my progress notes for details.
[2017-11-06 18:33] LABS: Basophils % 0.3 %; Eosinophils % 0.1 %; Hematocrit 37.4 % (37.5-50.1); Hemoglobin 12.7 g/dL (12.9-16.9); Immature Granulocytes % 0.2 % (0-4); Lymphocytes # 1.3 K/mcL (0.6-4.6); Lymphocytes % 11.7 %; Mean Corpuscular Hemoglobin 30.1 pg (28.0-33.3); Mean Corpuscular Volume 88.6 fL (83.0-100.0); Mean Platelet Volume 9.1 fL (9.4-12.4); Monocytes # 0.4 K/mcL (0.0-1.3); Monocytes % 3.2 %; Platelet Count 239 K/mcL (140-400); Red Blood Count 4.22 M/mcL (4.19-5.50); Red Cell Distribution Width 14.7 % (11.5-14.5); Segmented Neutrophils % 84.5 %
[2017-11-06 18:34] LABS: Neutrophils # 9.2 K/mcL (1.6-8.9)
[2017-11-06 18:38] LABS: Prothrombin Time 11.3 Seconds (9.4-12.1)
[2017-11-06 18:41] LABS: Activated Partial Thrombo Time 32.7 Seconds (26.0-36.0)
[2017-11-06] MEDS ORDERED: Ondansetron 4 MG/2 ML VIAL IVP ONE (18:51)
[2017-11-06 18:57] LABS: Alanine Aminotransferase 22 Units/L (7-52); Albumin 3.8 g/dL (3.5-5.7); Albumin/Globulin Ratio 1.5 (1.1-2.2); Alkaline Phosphatase 163 Units/L (34-104); Aspartate Amino Transferase 23 Units/L (13-39); BUN/Creatinine Ratio 13 (6-26); Bilirubin,Direct 0.1 mg/dL (0.0-0.2); Bilirubin,Indirect 0.2 mg/dL (0.0-1.2); Bilirubin,Total 0.3 mg/dL (0.3-1.0); Blood Urea Nitrogen 10 mg/dL (8-23); Calcium 9.2 mg/dL (8.6-10.3); Carbon Dioxide 22 mEq/L (23-29); Chloride 103 mEq/L (98-107); Ethanol < 10 mg/dL (Less than 10); Globulin 2.6 g/dL (2.4-3.5); Glucose 273 mg/dL (70-105); Osmolality,Calculated 291 (280-300); Potassium 3.9 mEq/L (3.5-5.1); Sodium 136 mEq/L (136-145); Total Protein 6.4 g/dL (6.4-8.9); Troponin I < 0.03 ng/mL (< 0.04); eGFR For Non-African Americans > 60 (> 60)
--- NOTE | 2017-11-06 19:44 | Emergency Department Note ---
Disposition Clinical Impression: Altered mental status, Seizure, Generalized weakness Disposition: Admitted As Inpatient Condition: Fair Referrals: Cyrus Coyne DO [Primary Care Provider] - Forms: ED Satisfaction Letter Time of Disposition: 19:47 General Adult HPI - General Chief complaint: ED Altered Mental Status Stated complaint: seizure Time Seen by Provider: 11/06/17 18:07 Source: EMS - History of Present Illness Pain Scale: 0 - Related Data Home Medications Medication Instructions Recorded Confirmed Citalopram [CeleXA] 40 mg PO DAILY 10/12/15 10/07/17 Zolpidem [Ambien] 10 mg PO HS 11/15/15 10/07/17 Albuterol Sulfate [Albuterol 2 puff IH Q4H PRN 03/18/16 10/07/17 Inhaler] Aspirin 81 mg PO DAILY 03/18/16 10/07/17 Atorvastatin Calcium [Lipitor] 80 mg PO HS 03/18/16 10/07/17 Budesonide/Formoterol 160/4.5 2 puff IH BIDR 03/18/16 10/07/17 [Symbicort 160/4.5] Clopidogrel [Plavix] 75 mg PO DAILY 03/18/16 10/07/17 Nitroglycerin [Nitrostat] 0.4 mg SL Q5M PRN 03/18/16 10/07/17 Gabapentin [Neurontin] 800 mg PO TID 11/25/16 10/07/17 ALPRAZolam [Xanax 1 MG Tablet] 1 mg PO BID 09/04/17 10/07/17 Insulin Glargine,Hum.rec.anlog 30 unit SQ BID 09/04/17 10/07/17 [Basaglar Kwikpen U-100] Lisinopril-HCTZ 20-12.5 [Prinzide 1 tab PO DAILY 09/04/17 10/07/17 20-12.5] Meloxicam [Mobic] 15 mg PO DAILY 09/04/17 10/07/17 Metformin HCl [Metformin HCl ER] 1,000 mg PO BID 09/04/17 10/07/17 Metoprolol Succinate [Toprol Xl] 100 mg PO DAILY 09/04/17 10/07/17 Oxycodone HCl 15 mg PO Q4H 09/04/17 10/07/17 Previous Rx's Medication Instructions Recorded Ibuprofen 800 mg PO QID PRN #20 tablet 02/19/17 Furosemide [Lasix] 20 mg PO DAILY #7 tablet 03/10/17 Lidocaine Patch [Lidoderm 5% patch] 1 each TP DAILY PRN #3 adh..patch 07/23/17 predniSONE [PredniSONE] 60 mg PO DAILY 5 Days tablet 10/07/17 Allergies Allergy/AdvReac Type Severity Reaction Status Date / Time codeine AdvReac Vomiting Verified 11/06/17 18:04 Past Medical History - Past Medical History Medical history: Reports: arthritis, asthma, cardiomyopathy, CHF, COPD, coronary artery disease, CVA, diabetes, GERD, hyperlipidemia, hypertension, myocardial infarction, peripheral artery disease, other Surgical history: Reports: angioplasty/stent, cholecystectomy, herniorrhaphy, knee replacement, orthopedic, other, other Psychiatric history: Reports: anxiety, depression, other - Social History Smoking Status: Current every day smoker Smokeless Tobacco Status: No Alcohol use: Reports: none Drug use: Reports: none Physical Exam - General General appearance: alert Course Vital Signs Temperature 98.5 F 11/06/17 17:57 Pulse Rate 98 11/06/17 17:57 Respiratory Rate 20 11/06/17 17:57 Blood Pressure 168/89 11/06/17 17:57 O2 Sat by Pulse Oximetry 97 11/06/17 17:57 Temperature 98.5 F 11/06/17 17:57 Pulse Rate 95 11/06/17 18:39 Respiratory Rate 16 11/06/17 18:39 Blood Pressure 153/85 11/06/17 18:39 O2 Sat by Pulse Oximetry 96 11/06/17 18:39 Oxygen Delivery Oxygen Delivery Room Air Medical Decision Making - Lab Data Result diagrams: 11/06/17 18:14 11/06/17 18:14 Lab Results 11/06/17 11/06/17 11/06/17 Range/Units 18:14 18:14 18:14 WBC 10.9 D (4.3-11.1) K/mcL RBC 4.22 (4.19-5.50) M/mcL Hgb 12.7 L (12.9-16.9) g/dL Hct 37.4 L (37.5-50.1) % MCV 88.6 (83.0-100.0) fL MCH 30.1 (28.0-33.3) pg MCHC 34.0 (31.6-35.5) g/dL RDW 14.7 H (11.5-14.5) % Plt Count 239 (140-400) K/mcL MPV 9.1 L (9.4-12.4) fL Immature Gran % 0.2 (0-4) % Seg Neutrophils % 84.5 % Lymphocytes % 11.7 % Monocytes % 3.2 % Eosinophils % 0.1 % Basophils % 0.3 % Neutrophils # 9.2 H (1.6-8.9) K/mcL Lymphocytes # 1.3 (0.6-4.6) K/mcL Monocytes # 0.4 (0.0-1.3) K/mcL Eosinophils # 0.0 (0.0-0.6) K/mcL Basophils # 0.0 (0.0-0.2) K/mcL PT 11.3 (9.4-12.1) Seconds INR 1.0 APTT 32.7 (26.0-36.0) Seconds Sodium 136 (136-145) mEq/L Potassium 3.9 (3.5-5.1) mEq/L Chloride 103 (98-107) mEq/L Carbon Dioxide 22 L (23-29) mEq/L BUN 10 (8-23) mg/dL Creatinine 0.80 (0.70-1.30) mg/dL Est GFR ( Amer) > 60 (> 60) Est GFR (Non-Af Amer) > 60 (> 60) BUN/Creatinine Ratio 13 (6-26) Glucose 273 H (70-105) mg/dL Calculated Osmolality 291 (280-300) Calcium 9.2 (8.6-10.3) mg/dL Total Bilirubin 0.3 (0.3-1.0) mg/dL Direct Bilirubin 0.1 (0.0-0.2) mg/dL Indirect Bilirubin 0.2 (0.0-1.2) mg/dL AST 23 (13-39) Units/L ALT 22 (7-52) Units/L Alkaline Phosphatase 163 H (34-104) Units/L Troponin I < 0.03 (< 0.04) ng/mL Serum Total Protein 6.4 (6.4-8.9) g/dL Albumin 3.8 (3.5-5.7) g/dL Globulin 2.6 (2.4-3.5) g/dL Albumin/Globulin Ratio 1.5 (1.1-2.2) Ethyl Alcohol < 10 (Less than 10) mg/dL Attestation Statement - Attestation Attestation: I, Blaise Chavez DO, examined this patient [id number] and my medical decision-making was reviewed with Dr. Elizabeth Kang, Resident Physician. I agree with the documented findings, disposition and treatment plan as described except to the extent set forth below. Please see my progress notes for details. 62-year-old male presents to the emergency room for evaluation of a seizure like activity. Patient is brought in post ictal by the family. Patient's had seizures in the past secondary to intracranial bleed versus aneurysm. Patient has not fallen or injured himself but he has had persistently worsening weakness with walking with the last several weeks. The family has noticed this with the patient is denied any trauma injury or new medications. Currently denying fevers chills chest pain shortness of breath headache vision changes nausea vomiting or diarrhea. Patient has been asymptomatic after the seizure and is still postictal. CT imaging the head will be ordered at this time as well as screening evaluation for altered mentation. CBC chemistry troponin EKG will be resulted. Disposition will most likely be admission wants a screening evaluation is completed. Patient will be observed here until the postictal phase has resolved and discuss disposition. Patient is unable to have neurologic evaluation completed does not have any strokelike symptoms and is not a candidate for stroke evaluation secondary to seizure activity at the onset of the presentation. Patient will require definitive management treatment here in the emergency room. See detailed documentation the physical exam, medical intervention, medical decision-making disposition in the resident physician's note. No critical care provider the patient's treatment course at this time. 1945 White blood cell count is most likely secondary to reactionary symptoms of the seizure activity here today. The remainder the labs are unremarkable. CT imaging the head is negative. No acute signs of bleed or other pathology. Patient will be admitted at this time for continuation and evaluation of the persistently worsening weakness in his legs. I went back and reevaluated the patient the bedside and he is alert now answering questions and says that he has a headache. Patient's family was informed of the admission recommendation they were comfortable with this plan. Patient appears to be at baseline at this point. There is no visible neurologic deficits at this time despite the patient does describe weakness when he goes to stand. Hospitalist review the presentation symptoms and no other concerns or issues. Admission process will be completed at this point for continuation of care.
[2017-11-06 20:17] LABS: Bilirubin,Urine Negative (Negative); Blood,Urine Small (Negative); Clarity,Urine Clear (Clear); Color,Urine Yellow (Yellow); Glucose,Urine (UA) >=1000 mg/dL (Normal); Ketones,Urine Trace mg/dL (Negative); Leukocyte Esterase,Urine Negative (Negative); Nitrite,Urine Negative (Negative); PH,Urine 5.5 pH Units (5.0-8.0); Protein,Urine 30 mg/dL (Neg-Trace); Urobilinogen,Urine Normal (Normal)
[2017-11-06 20:20] LABS: Bacteria,Urine None Seen per hpf (None-Few); Hyaline Casts,Urine None Seen per lpf (None-Few); RBC,Urine 0-3 per hpf (0-3); Squamous Epithelial Cell,Urine Moderate per lpf (None-Few)
[2017-11-06] MEDS ORDERED: Naloxone 0.4 MG/ML INJ IVP PRN (20:20)
[2017-11-06] MEDS ORDERED: *HR* Dextrose 50 % in Water (Syg) 50 ML SYRINGE IVP PRN (20:24)
[2017-11-06] MEDS ORDERED: D5% in Water 1,000 ML IVC PRN (20:24)
[2017-11-06] MEDS ORDERED: Dextrose Gel 15 GM/37.5 ML TUBE PO PRN ×2 (20:24)
[2017-11-06] MEDS ORDERED: *HR* OxyCODONE Immed Rel 15 MG TABLET PO PRN (20:26)
--- NOTE | 2017-11-06 20:44 | Internal Med History&Physical ---
<Bryan Key - Last Filed: 11/06/17 23:47> Date of Encounter: 11/06/17 Time of Encounter: 20:34 Internal Medicine - H&P: HPI Chief complaint: seizure Admitted From: Home Plans for Post Hospital Care: Home History of present illness: Mr. Craig is a 62 year old male presented with cc of seizure. Hx obtianed from patient and daughter. Patient this morning fell in his shower, which he has no recollection of and then fell in his room after getting out of the shower around 8M (this he remembers). He reports he did hit his head but otherwise denies trauma to any other body region. Since morning he was feeling week and his knees were "giving out." his daughter noticed he was very confused and kept repeating words around an hour after he fell in the bathroom. She then stated "he popped out of that" and told her he does not feel good and needs to go the the hospital. He was taken to the couch by the daughter and EMS called. While being on the couch he had a tonic-clonic seizure that lasted four minutes. He did not bite his tongue, but lost bladder control. Afterwards he was very confused and combative up until he arrived in the ER where he was sedated with IV lorezepam. Patient has hx of seizures 10 years ago (total of 7) but never has been on antiepileptic. He was diagnosed with brain anuerysm two-thre years ago at [facility] but no interventions were taken. Past Med Surg Social Fam HX - Past Medical History Medical history: arthritis, asthma, cardiomyopathy, CHF, COPD, coronary artery disease, CVA, diabetes, GERD, hyperlipidemia, hypertension, myocardial infarction, peripheral artery disease, other Additional medical history: brain aneurysms x3 Psychiatric history: anxiety, depression, other - Past Surgical History Surgical History: angioplasty/stent, cholecystectomy, herniorrhaphy, knee replacement, orthopedic, other, other Additional surgical history: 4 cardiac stents. B/L knee surgeries - Social History Smoking Status: Current every day smoker Smokeless Tobacco Status: No Alcohol use: none Drug use: none - Family History Mother Family Member Ethnicity: Non- Living Status: Hx Family Cardiac Disorders: Yes (CO) Hx Family Respiratory Disorders: Yes (COPD) Hx Family Cancer: Yes (Lung) Hx Family GI Disorders: No Hx Family Endocrine Disorder: Yes (DM) Hx Family Neuromuscular Disorders: No Hx Family Neurologic Disorders: No Hx Family HEENT Disorders: No Hx Family Autoimmune Disorders: No Father Family Member Ethnicity: Non- Living Status: Hx Family Cardiac Disorders: No Hx Family Respiratory Disorders: No Hx Family Cancer: Yes (Colon) Hx Family GI Disorders: No Hx Family Endocrine Disorder: No Hx Family Neuromuscular Disorders: No Hx Family Neurologic Disorders: No Hx Family HEENT Disorders: No Hx Family Autoimmune Disorders: No Internal Medicine - H&P: Meds Citalopram [CeleXA] 40 mg PO DAILY 10/12/15 [History] Zolpidem [Ambien] 10 mg PO HS 11/15/15 [History] Albuterol Sulfate [Albuterol Inhaler] 2 puff IH Q4H PRN 03/18/16 [History] Aspirin 81 mg PO DAILY 03/18/16 [History] Atorvastatin Calcium [Lipitor] 80 mg PO HS 03/18/16 [History] Budesonide/Formoterol 160/4.5 [Symbicort 160/4.5] 2 puff IH BIDR 03/18/16 [ History] Clopidogrel [Plavix] 75 mg PO DAILY 03/18/16 [History] Nitroglycerin [Nitrostat] 0.4 mg SL Q5M PRN 03/18/16 [History] Gabapentin [Neurontin] 800 mg PO TID 11/25/16 [History] Ibuprofen 800 mg PO QID PRN #20 tablet 02/19/17 [Rx] Furosemide [Lasix] 20 mg PO DAILY #7 tablet 03/10/17 [Rx] ALPRAZolam [Xanax 1 MG Tablet] 1 mg PO BID 09/04/17 [History] Insulin Glargine,Hum.rec.anlog [Basaglar Kwikpen U-100] 30 unit SQ BID 09/04/17 [History] Lisinopril-HCTZ 20-12.5 [Prinzide 20-12.5] 1 tab PO DAILY 09/04/17 [History] Meloxicam [Mobic] 15 mg PO DAILY 09/04/17 [History] Metformin HCl [Metformin HCl ER] 1,000 mg PO BID 09/04/17 [History] Metoprolol Succinate [Toprol Xl] 100 mg PO DAILY 09/04/17 [History] Oxycodone HCl 15 mg PO Q4H 09/04/17 [History] 3 Allergy/AdvReac Type Severity Reaction Status Date / Time codeine AdvReac Vomiting Verified 11/07/17 00:49 All Systems PM: A 10-system review of systems was performed and is negative for pertinent findings except as documented above in the HPI. Review of systems: Constitutional: Denies fever, chills HEENT: Reports headache and trauma, denies blurry vision, eye discharge, ear pain, ear discharge neck pain, sore throat, rhinorrhea Heart: Denies chest pain palpitations, LE edema Lungs: Denies shortness of breath cough Abdomen: Denies abdominal pain nausea vomiting diarrhea MSK: Denies back pain, reports falls, muscle aches Kidney: Denies dysuria, hematuria Skin: Denies rash, ulcers Neuro: Denies numbness and tingling Psych: denies axniety, depression - Constitutional Vitals: Temp Pulse Resp BP Pulse Ox 98.5 F 95 16 153/85 96 11/06/17 17:57 11/06/17 18:39 11/06/17 18:39 11/06/17 18:39 11/06/17 18:39 Exam: General: pleasant, without distress, weak HEENT: Head atraumatic, normocephalic, EOMI, PERRL, absent ear discharge or trauma, Moist Mucous Membranes, uvula midline Neck: nontender to palpation, absent lymphadenopathy, Cardiovascualr: Regular rate and rhythm with no murmur, absent gallops or rubs, absent pedal edema, radial pulses 2 out of 4 Lungs: Clear to auscultation bilaterally, not in respiratory distress Abdomen: Soft nontender, nondistended positive bowel sounds, absent hepatomegaly Skin: Left knee bruising, nasal bruising, absent rash, absent open wounds and nodules MSK: absent clubbing, cyanosis, joints without swelling Neuro: Cranial nerves II through XII intact, UE and LE sensation equal bilaterally, UE and LEstrength 4/5, alert oriented 3, Heel to [place] intact, finger to nose intact, Gait intact, rhombergs sign negative, b/l plantar reflexes downwards Psych: good insight and judgment Internal Med - H&P Results - Labs CBC & Chem 7: 11/06/17 18:14 11/06/17 18:14 Labs: Short CBC 11/06/17 Range/Units 18:14 WBC 10.9 D (4.3-11.1) K/mcL Hgb 12.7 L (12.9-16.9) g/dL Hct 37.4 L (37.5-50.1) % Plt Count 239 (140-400) K/mcL Neutrophils # 9.2 H (1.6-8.9) K/mcL BMP 11/06/17 18:14 Sodium 136 Potassium 3.9 Chloride 103 Carbon Dioxide 22 L BUN 10 Creatinine 0.80 Glucose 273 H Calcium 9.2 Cardiac Enzymes 11/06/17 Range/Units 18:14 Troponin I < 0.03 (< 0.04) ng/mL Liver Function 11/06/17 Range/Units 18:14 Total Bilirubin 0.3 (0.3-1.0) mg/dL Direct Bilirubin 0.1 (0.0-0.2) mg/dL AST 23 (13-39) Units/L ALT 22 (7-52) Units/L Alkaline Phosphatase 163 H (34-104) Units/L Albumin 3.8 (3.5-5.7) g/dL - Impressions ITS Impressions Head CT 11/06/17 18:07 IMPRESSION: No acute intracranial abnormality. D/ / Tj Urias MD / Tj Urias MD Interpreting Provider: Tj Urias MD Chest X-Ray 11/06/17 18:13 IMPRESSION: No acute process. D/ / Chun Stone MD / Chun Stone MD Interpreting Provider: Chun Stone MD - Assessment and plan (1) Seizure Current Visit: Yes Status: Acute Assessment and plan: 60 y/o male presented with seizures Patient was observed to have a tonic-clonic seizure for 3 minutes with postictal state Patient has history of seizures but was not on any antiepileptics Loaded with Keppra 1500 mg. And started on Keppra 500 mg twice a day IV. neuro-exam non-focal non-lateralizing. Neurology consulted (2) Coronary artery disease Current Visit: Yes Status: Acute Assessment and plan: Patient has a history of coronary artery disease Patient has a left heart catheter in April 2016 with placement of drug-eluting stents to the proximal LAD which had a blockage of 90%. denies chest pain trop WNL Continue aspirin, Plavix, beta azra. Holding atorvastatin will check CK before restarting. Qualifiers: Coronary Disease-Associated Artery/Lesion type: [place] artery [place] vs. transplanted heart: [place] heart Associated angina: without angina Qualified Code(s): I25.10 - Atherosclerotic heart disease of [place] coronary artery without angina pectoris (3) Weight loss Current Visit: Yes Status: Acute Assessment and plan: Patient reports 40 pound weight loss in last month Reports poor appetite and progressive weakness Patient's PCP ordered PSA which was normal. Patent reports colonoscopy 3 years ago and a tubular adenoma was found. Colonoscopy has been scheduled outpatient Recent CT of the chest was negative for any malignancy. Cardiac ADA diet (4) Diabetes mellitus Current Visit: Yes Status: Acute Assessment and plan: Patient has poorly controlled diabetes mellitus insulin-dependent His A1c is 9.9 Patient was started on cardiac ADA diet and insulin regimen. 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 Qualifiers: COPD type: unspecified COPD Qualified Code(s): J44.9 - Chronic obstructive pulmonary disease, unspecified (6) HTN (hypertension) Current Visit: Yes Status: Chronic Assessment and plan: Controlled Continue lisinopril Qualifiers: Hypertension type: essential hypertension Qualified Code(s): I10 - Essential (primary) hypertension (7) Depression Current Visit: Yes Status: Acute Assessment and plan: Patient has history of depression Continue home medications. Qualifiers: Depression Type: major depressive disorder Major depression recurrence: unspecified whether recurrent Active/Remission status: remission status unspecified Qualified Code(s): F32.9 - Major depressive disorder, single episode, unspecified - Time Spent With Patient Total time spent is greater than 50% in coordination of care (as documented) at patient's floor/unit and/or counseling patient: <Christos Stafford - Last Filed: 11/07/17 07:56> Date of Encounter: 11/07/17 Internal Medicine - H&P: HPI History of present illness: Mr. Craig is a 62 year old male All Systems PM: A 10-system review of systems was performed and is negative for pertinent findings except as documented above in the HPI. - Constitutional Vitals: Temp Pulse Resp BP Pulse Ox 98.1 F 70 16 112/71 94 11/07/17 07:46 11/07/17 07:46 11/07/17 07:46 11/07/17 07:46 11/07/17 07:46 Internal Med - H&P Results - Labs CBC & Chem 7: 11/07/17 03:28 11/07/17 03:28 Labs: Short CBC 11/07/17 Range/Units 03:28 WBC 10.3 (4.3-11.1) K/mcL Hgb 12.4 L (12.9-16.9) g/dL Hct 36.6 L (37.5-50.1) % Plt Count 219 (140-400) K/mcL Neutrophils # 8.1 (1.6-8.9) K/mcL BMP 11/07/17 03:28 Sodium 136 Potassium 4.0 Chloride 103 Carbon Dioxide 24 BUN 11 Creatinine 0.69 L Glucose 254 H Calcium 9.0 - Assessment and plan (1) HTN (hypertension) Current Visit: Yes Status: Chronic Qualifiers: Hypertension type: essential hypertension Qualified Code(s): I10 - Essential (primary) hypertension (2) COPD (chronic obstructive pulmonary disease) Current Visit: Yes Status: Chronic Qualifiers: COPD type: unspecified COPD Qualified Code(s): J44.9 - Chronic obstructive pulmonary disease, unspecified (3) Seizure Current Visit: Yes Status: Acute (4) Coronary artery disease Current Visit: Yes Status: Acute Qualifiers: Coronary Disease-Associated Artery/Lesion type: [place] artery [place] vs. 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 Case discussed with resident. Agree with assessment and plan. We will load with Niurka for seizure prophylaxis. Neurology consult in the morning.
[2017-11-06] MEDS ORDERED: *HR* OxyCODONE Immed Rel 5 MG TABLET PO PRN (20:46)
[2017-11-06 20:52] LABS: Creatine Kinase 69 Units/L (30-223)
[2017-11-06 21:01] LABS: Sperm,Urine Present; Yeast,Urine Few per hpf (None Seen)
[2017-11-07] MEDS: ALPRAZolam 1 MG TABLET PO SCH ×3 (00:50→20:25)
[2017-11-07] MEDS: Insulin LISPRO 300 UNITS/3 ML VIAL SQ SCH ×5 (00:51→20:26)
[2017-11-07] MEDS: 0.9 % Sodium Chloride 1,000 ML IVC SCH ×2 (00:54→13:54)
[2017-11-07] MEDS: Gabapentin 400 MG CAPSULE PO SCH ×4 (00:54→20:25)
[2017-11-07] MEDS: *HR* Heparin 5,000 UNIT/ML VIAL SQ SCH ×4 (00:55→22:19)
[2017-11-07] MEDS: Budesonide/Formoterol 160/4.5 1 PUFF INH IH SCH ×3 (00:58→20:53)
[2017-11-07] MEDS ORDERED: Naloxone 0.4 MG/ML INJ IVP PRN ×2 (01:55→06:33)
[2017-11-07 04:25] LABS: Basophils % 0.2 %; Hematocrit 36.6 % (37.5-50.1); Hemoglobin 12.4 g/dL (12.9-16.9); Immature Granulocytes % 0.2 % (0-4); Lymphocytes # 1.8 K/mcL (0.6-4.6); Lymphocytes % 17.7 %; Mean Corpuscular HGB Conc 33.9 g/dL (31.6-35.5); Mean Corpuscular Hemoglobin 30.1 pg (28.0-33.3); Mean Corpuscular Volume 88.8 fL (83.0-100.0); Mean Platelet Volume 9.1 fL (9.4-12.4); Monocytes # 0.4 K/mcL (0.0-1.3); Monocytes % 3.5 %; Neutrophils # 8.1 K/mcL (1.6-8.9); Platelet Count 219 K/mcL (140-400); Red Blood Count 4.12 M/mcL (4.19-5.50); Red Cell Distribution Width 14.6 % (11.5-14.5); Segmented Neutrophils % 78.4 %
[2017-11-07 04:41] LABS: BUN/Creatinine Ratio 16 (6-26); Blood Urea Nitrogen 11 mg/dL (8-23); Carbon Dioxide 24 mEq/L (23-29); Chloride 103 mEq/L (98-107); Glucose 254 mg/dL (70-105); Magnesium 1.7 mg/dL (1.6-2.6); Osmolality,Calculated 290 (280-300); Sodium 136 mEq/L (136-145); eGFR For Non-African Americans > 60 (> 60)
[2017-11-07] MEDS: Aspirin 81 MG TAB.CHEW PO SCH (09:06)
[2017-11-07] MEDS: Metoprolol XL (24 HR) Succ 50 MG TAB.ER.24H PO SCH (09:06)
[2017-11-07] MEDS: Lisinopril-HCTZ 20-12.5mg TABLET PO SCH (09:06)
[2017-11-07] MEDS: Furosemide 20 MG TABLET PO SCH (09:06)
--- NOTE | 2017-11-07 12:04 | Internal Med Progress Note ---
<Estelita Oliveros - Last Filed: 11/07/17 13:17> Hospitalist Progress Note - Encounter Date of Encounter: 11/07/17 Time of Encounter: 12:03 - Subjective Interval History: Patient seen and examined at bedside. He is alert and oriented x3. He denies headache, change in vision, shortness of breath, dysuria. He has not had any seizures while admitted. - Exam Vitals: Temp Pulse Resp BP Pulse Ox 98.6 F 66 16 108/66 95 11/07/17 11:33 11/07/17 11:33 11/07/17 11:33 11/07/17 11:33 11/07/17 11:33 Exam: General: pleasant, without distress, weak HEENT: Head atraumatic, normocephalic, absent ear discharge or trauma, Moist Mucous Membranes, uvula midline Neck: nontender to palpation, absent lymphadenopathy, Cardiovascualr: Regular rate and rhythm with no murmur, absent gallops or rubs Lungs: rhonci bilaterally, not in respiratory distress Abdomen: Soft nontender, nondistended positive bowel sounds, absent hepatomegaly Skin: Left knee bruising, nasal bruising, absent rash, absent open wounds and nodules MSK: absent clubbing, cyanosis, joints without swelling Neuro: Cranial nerves II through XII intact, UE and LE sensation equal bilaterally, UE and LEstrength 5/5, alert oriented 3 Psych: good insight and judgment - Assessment and Plan (1) Seizure Current Visit: Yes Status: Acute Assessment and Plan: 60 y/o male presented with seizures. Patient was observed to have a tonic- clonic seizure for 3 minutes with postictal state. No urination or tongue biting. Patient has history of seizures but was not on any antiepileptics. Was supposed to follow with Dr. Ramos but missed all appt in past. no seizures since admitted patient is at baseline, no focal neurologic deficits. head CT normal -Loaded with Keppra 1500 mg. And started on Keppra 500 mg twice a day IV. -seizure pre-cautions -Neurology consulted (2) HTN (hypertension) Current Visit: Yes Status: Chronic Assessment and Plan: hx of HTN BP controlled -Continue home lisinopril (3) COPD (chronic obstructive pulmonary disease) Current Visit: Yes Status: Chronic Assessment and Plan: Hx chronic COPD, Not an exacerbation -Continue home Symbicort (4) Coronary artery disease Current Visit: Yes Status: Acute Assessment and Plan: history of coronary artery disease Patient has a left heart catheter in April 2016 with placement of drug-eluting stents to the proximal LAD which had a blockage of 90%. denies chest pain trop WNL CK 69 -Continue aspirin, Plavix, beta azra, atorvastatin (5) Weight loss Current Visit: Yes Status: Acute Assessment and Plan: Patient reports 40 pound weight loss in last month. Reports poor appetite and progressive weakness Patient's PCP ordered PSA which was normal. Patent reports colonoscopy 3 years ago and a tubular adenoma was found. Colonoscopy has been scheduled outpatient Recent CT of the chest was negative for any malignancy. -Cardiac ADA diet (6) Diabetes mellitus Current Visit: Yes Status: Acute Assessment and Plan: Patient has poorly controlled diabetes mellitus insulin-dependent A1c is 9.9 -cardiac ADA diet -levemir 5unit BID -low dose sliding scale insulin (7) Depression Current Visit: Yes Status: Acute Assessment and Plan: Patient has history of depression Continue home medications. DVT Prophylaxis: heparin sq - Time Spent with Patient Total time spent is greater than 50% in coordination of care (as documented) at patient's floor/unit and/or counseling patient: Internal Medicine: Result - Labs CBC & Chem 7: 11/07/17 03:28 11/07/17 03:28 Labs: Short CBC 11/07/17 Range/Units 03:28 WBC 10.3 (4.3-11.1) K/mcL Hgb 12.4 L (12.9-16.9) g/dL Hct 36.6 L (37.5-50.1) % Plt Count 219 (140-400) K/mcL Neutrophils # 8.1 (1.6-8.9) K/mcL BMP 11/07/17 03:28 Sodium 136 Potassium 4.0 Chloride 103 Carbon Dioxide 24 BUN 11 Creatinine 0.69 L Glucose 254 H Calcium 9.0 - ABG Interpretation ABG results: PT/INR, D-dimer PT 11.3 Seconds (9.4-12.1) 11/06/17 18:14 Consult Discharge Plan - Plan Referrals: Cyrus Coyne DO [Primary Care Provider] - <Guanakito Treviño - Last Filed: 11/07/17 19:26> Hospitalist Progress Note - Encounter Date of Encounter: 11/07/17 - Exam Vitals: Temp Pulse Resp BP Pulse Ox 98.1 F 64 16 107/65 96 11/07/17 16:12 11/07/17 16:12 11/07/17 16:12 11/07/17 16:12 11/07/17 16:12 - Assessment and Plan (1) HTN (hypertension) Current Visit: Yes Status: Chronic (2) COPD (chronic obstructive pulmonary disease) Current Visit: Yes Status: Chronic (3) Seizure Current Visit: Yes Status: Acute (4) Coronary artery disease Current Visit: Yes Status: Acute (5) Weight loss Current Visit: Yes Status: Acute (6) Diabetes mellitus Current Visit: Yes Status: Acute (7) Depression Current Visit: Yes Status: Acute - Time Spent with Patient Total time spent is greater than 50% in coordination of care (as documented) at patient's floor/unit and/or counseling patient: Internal Medicine: Result - Labs CBC & Chem 7: 11/07/17 03:28 11/07/17 03:28 Labs: Short CBC 11/07/17 Range/Units 03:28 WBC 10.3 (4.3-11.1) K/mcL Hgb 12.4 L (12.9-16.9) g/dL Hct 36.6 L (37.5-50.1) % Plt Count 219 (140-400) K/mcL Neutrophils # 8.1 (1.6-8.9) K/mcL BMP 11/07/17 03:28 Sodium 136 Potassium 4.0 Chloride 103 Carbon Dioxide 24 BUN 11 Creatinine 0.69 L Glucose 254 H Calcium 9.0 - ABG Interpretation ABG results: PT/INR, D-dimer PT 11.3 Seconds (9.4-12.1) 11/06/17 18:14 - Attending Attestation I examined this patient and my medical decision-making was reviewed with the Resident Physician on 11/07/17. I agree with the documented findings, disposition and treatment plan as described except to the extent set forth below. Mr Craig is currently admitted for seizure. He remains moderate to high risk due to potential for worsening clinical status. Mr Craig feels OK. No fever or chills. No CP or SOB. No further episodes. Exam alert Comfortable at this time Mucus membranes dry Heart reg No wheeze Abd soft I/P 1. Seizure Further diagnoses and plan as above. <Estelita Oliveros - Last Filed: 11/07/17 13:17> (2) HTN (hypertension) Qualifiers: Hypertension type: essential hypertension Qualified Code(s): I10 - Essential (primary) hypertension (3) COPD (chronic obstructive pulmonary disease) Qualifiers: COPD type: unspecified COPD Qualified Code(s): J44.9 - Chronic obstructive pulmonary disease, unspecified (4) Coronary artery disease Qualifiers: Coronary Disease-Associated Artery/Lesion type: [place] artery [place] vs. transplanted heart: [place] heart Associated angina: without angina Qualified Code(s): I25.10 - Atherosclerotic heart disease of [place] coronary artery without angina pectoris (6) Diabetes mellitus Qualifiers: Diabetes mellitus type: type 2 Diabetes mellitus manager terminal insulin use: with manager terminal use Diabetes mellitus complication status: without complication Qualified Code(s): E11.9 - Type 2 diabetes mellitus without complications; Z79.4 - correction (current) use of insulin (7) Depression Qualifiers: Depression Type: major depressive disorder Major depression recurrence: unspecified whether recurrent Active/Remission status: remission status unspecified Qualified Code(s): F32.9 - Major depressive disorder, single episode, unspecified <Guanakito Treviño - Last Filed: 11/07/17 19:26> (1) HTN (hypertension) Qualifiers: Hypertension type: essential hypertension Qualified Code(s): I10 - Essential (primary) hypertension (2) COPD (chronic obstructive pulmonary disease) Qualifiers: COPD type: unspecified COPD Qualified Code(s): J44.9 - Chronic obstructive pulmonary disease, unspecified (4) Coronary artery disease Qualifiers: Coronary Disease-Associated Artery/Lesion type: [place] artery [place] vs. transplanted heart: [place] heart Associated angina: without angina Qualified Code(s): I25.10 - Atherosclerotic heart disease of [place] coronary artery without angina pectoris (6) Diabetes mellitus Qualifiers: Diabetes mellitus type: type 2 Diabetes mellitus [facility] insulin use: with manager terminal use Diabetes mellitus complication status: without complication Qualified Code(s): E11.9 - Type 2 diabetes mellitus without complications; Z79.4 - correction (current) use of insulin (7) Depression Qualifiers: Depression Type: major depressive disorder Major depression recurrence: unspecified whether recurrent Active/Remission status: remission status unspecified Qualified Code(s): F32.9 - Major depressive disorder, single episode, unspecified
--- NOTE | 2017-11-07 12:37 | Neurology - Consult Note ---
Date of Encounter: 11/07/17 Time of Encounter: 12:32 Assessment and Plan (1) Generalized seizure Current Visit: No Status: Acute Patient has an apparent history of seizure however the history is scant and certain how reliable this patient is with regard to the history. Certainly there is been a record of noncompliance established. I am not certain whether not a true etiology for his seizures have has ever been established. In any regard I agree with starting him on levetiracetam 500 mg twice a day. I would like to obtain an MRI of the brain with and without contrast as well as an EEG while he is here. Also order a urine tox screen. Further recommendations will be made pending the outcome of these tests. History of Present Illness HPI: The chart was reviewed, the patient was seen and examined. Case was discussed with the internal service. Mr. Craig is a 62 year old male who is being seen for neurologic consultation at the request of the hospitalist group secondary to suspicion of seizure activity. He is actually admitted here in August of this year for TIA like symptoms. However his workup at that time was negative and I ultimately concluded that his slurred speech and balance difficulties may have been the effects of the Xanax and oxycodone that he takes. In any regard apparently he fell while in the shower this morning and he has no account of what actually happened. His daughter was apparently then also with him. Apparently hit his head while in the shower however is no evidence of trauma or hematoma. Since his mornings been feeling weak and confused. Apparently afterwards she was on the couch and his daughter witnessed what appeared to be a generalized tonic-clonic seizure last about 4 minutes or so. He did not bite his tongue however he did lose urinary continence. He was confused and combative. He was ultimately brought to [facility]'s ED. He was given lorazepam for did sedation. Apparently has a history of seizures about 10 years or so ago. However he is on not been on antiepileptic medication. He is very noncompliant with following up after hospitalizations. Records show that he no showed for an office appointment with me after release from the hospital. Records showed that the appointment was scheduled for 09/29/2017. He also missed an appointment to see Dr. Simms in the office on 05/11/2017. Currently he is awake in the bed but seems to be a little confused he has some dyspraxia with command following. He could not tell me the day date, month or year. CT scan completed in the ED was negative. Past Med Surg Social Fam HX - Past Medical History Medical history: arthritis, asthma, cardiomyopathy, CHF, COPD, coronary artery disease, CVA, diabetes, GERD, hyperlipidemia, hypertension, myocardial infarction, peripheral artery disease, other Additional medical history: brain aneurysms x3 Psychiatric history: anxiety, depression, other - Past Surgical History Surgical History: angioplasty/stent, cholecystectomy, herniorrhaphy, knee replacement, orthopedic, other, other Additional surgical history: 4 cardiac stents. B/L knee surgeries - Social History Smoking Status: Current every day smoker Smokeless Tobacco Status: No Alcohol use: none Drug use: none - Family History Mother Family Member Ethnicity: Non- Living Status: Hx Family Cardiac Disorders: Yes (CT) Hx Family Respiratory Disorders: Yes (COPD) Hx Family Cancer: Yes (Lung) Hx Family GI Disorders: No Hx Family Endocrine Disorder: Yes (DM) Hx Family Neuromuscular Disorders: No Hx Family Neurologic Disorders: No Hx Family HEENT Disorders: No Hx Family Autoimmune Disorders: No Father Family Member Ethnicity: Non- Living Status: Hx Family Cardiac Disorders: No Hx Family Respiratory Disorders: No Hx Family Cancer: Yes (Colon) Hx Family GI Disorders: No Hx Family Endocrine Disorder: No Hx Family Neuromuscular Disorders: No Hx Family Neurologic Disorders: No Hx Family HEENT Disorders: No Hx Family Autoimmune Disorders: No Medications and Allergies Citalopram [CeleXA] 40 mg PO DAILY 10/12/15 [History] Zolpidem [Ambien] 10 mg PO HS 11/15/15 [History] Albuterol Sulfate [Albuterol Inhaler] 2 puff IH Q4H PRN 03/18/16 [History] Aspirin 81 mg PO DAILY 03/18/16 [History] Atorvastatin Calcium [Lipitor] 80 mg PO HS 03/18/16 [History] Budesonide/Formoterol 160/4.5 [Symbicort 160/4.5] 2 puff IH BIDR 03/18/16 [ History] Clopidogrel [Plavix] 75 mg PO DAILY 03/18/16 [History] Nitroglycerin [Nitrostat] 0.4 mg SL Q5M PRN 03/18/16 [History] Gabapentin [Neurontin] 800 mg PO TID 11/25/16 [History] Ibuprofen 800 mg PO QID PRN #20 tablet 02/19/17 [Rx] Furosemide [Lasix] 20 mg PO DAILY #7 tablet 03/10/17 [Rx] ALPRAZolam [Xanax 1 MG Tablet] 1 mg PO BID 09/04/17 [History] Insulin Glargine,Hum.rec.anlog [Basaglar Kwikpen U-100] 30 unit SQ BID 09/04/17 [History] Lisinopril-HCTZ 20-12.5 [Prinzide 20-12.5] 1 tab PO DAILY 09/04/17 [History] Meloxicam [Mobic] 15 mg PO DAILY 09/04/17 [History] Metformin HCl [Metformin HCl ER] 1,000 mg PO BID 09/04/17 [History] Metoprolol Succinate [Toprol Xl] 100 mg PO DAILY 09/04/17 [History] Oxycodone HCl 15 mg PO Q4H 09/04/17 [History] 3 Allergy/AdvReac Type Severity Reaction Status Date / Time codeine AdvReac Vomiting Verified 11/07/17 00:49 All Systems: The remainder of the systems were reviewed and are negative Review of Systems: The balance of the systems review is negative. Physical Examination - Vital Signs Vital Signs: Initial Vital Signs Temp Pulse Resp BP Pulse Ox 98.5 F 98 20 168/89 97 11/06/17 17:57 11/06/17 17:57 11/06/17 17:57 11/06/17 17:57 11/06/17 17:57 - Constitutional General appearance: comfortable - Neurologic Detailed motor examination: grossly full strength in all extremities (Patient does have high arches and hammertoes bilaterally.) Detailed sensory examination: intact Reflex and gait examination: other (Deep tendon reflexes are diminished of the biceps triceps and brachioradialis. They are absent at the patellar and Achilles symmetrically.) Mental Status Examination: Patient is awake, he is alert, however he is oriented to person and place only. He cannot tell me the day, the date or the month. He does understand the circumstances resulting in his admission. He also has some motor apraxia with command following. He is able to give some history however not a complete detailed history of his own medical account. Cranial nerve examination: PERRL, EOMI, visual casiano intact, corneal reflexes brisk symmetrically, sensory to face intact, mastication intact, no facial asymmetry is present, no dysarthria, hearing is intact symmetrically, soft palate elevates bilaterally upon phonation, gag reflex intact, flexes SCM and trapezius muscles symmetrically with full power, tongue protrudes midline, no atrophy or facial fasiculations present Results - Laboratory Findings CBC and BMP: 11/07/17 03:28 11/07/17 03:28 Abnormal lab findings: Abnormal lab results RBC 4.12 M/mcL (4.19-5.50) L 11/07/17 03:28 Hgb 12.4 g/dL (12.9-16.9) L 11/07/17 03:28 Hct 36.6 % (37.5-50.1) L 11/07/17 03:28 RDW 14.6 % (11.5-14.5) H 11/07/17 03:28 MPV 9.1 fL (9.4-12.4) L 11/07/17 03:28 Creatinine 0.69 mg/dL (0.70-1.30) L 11/07/17 03:28 Glucose 254 mg/dL (70-105) H 11/07/17 03:28 Alkaline Phosphatase 163 Units/L (34-104) H 11/06/17 18:14 Ur Specific [place] 1.030 (1.010-1.025) H 11/06/17 19:53 Urine Protein 30 mg/dL (Neg-Trace) H 11/06/17 19:53 Urine Glucose (UA) >=1000 mg/dL (Normal) H 11/06/17 19:53 Urine Ketones Trace mg/dL (Negative) H 11/06/17 19:53 Urine Blood Small (Negative) H 11/06/17 19:53 Urine Microscopic WBC 5-15 per hpf (0-3) H 11/06/17 19:53 Ur Squamous Epith Cells Moderate per lpf (None-Few) H 11/06/17 19:53 Urine Yeast Few per hpf (None Seen) H 11/06/17 19:53 Consult Discharge Plan - Plan Referrals: Cyrus Coyne DO [Primary Care Provider] -
[2017-11-07] MEDS: Insulin DETEMIR 100 UNIT/ML X5UNITS SQ SCH ×2 (13:51→20:26)
[2017-11-08 03:49] LABS: Hematocrit 33.8 % (37.5-50.1); Hemoglobin 11.3 g/dL (12.9-16.9); Mean Corpuscular HGB Conc 33.4 g/dL (31.6-35.5); Mean Corpuscular Hemoglobin 29.3 pg (28.0-33.3); Mean Corpuscular Volume 87.6 fL (83.0-100.0); Mean Platelet Volume 9.5 fL (9.4-12.4); Platelet Count 194 K/mcL (140-400); Red Blood Count 3.86 M/mcL (4.19-5.50)
[2017-11-08] MEDS: *HR* Heparin 5,000 UNIT/ML VIAL SQ SCH ×3 (06:31→20:15)
[2017-11-08] MEDS: Budesonide/Formoterol 160/4.5 1 PUFF INH IH SCH ×2 (07:55→20:14)
[2017-11-08] MEDS: Insulin LISPRO 300 UNITS/3 ML VIAL SQ SCH ×4 (08:19→20:15)
[2017-11-08] MEDS: ALPRAZolam 1 MG TABLET PO SCH ×2 (08:20→20:14)
[2017-11-08] MEDS: Lisinopril-HCTZ 20-12.5mg TABLET PO SCH (08:20)
[2017-11-08] MEDS: Furosemide 20 MG TABLET PO SCH (08:21)
[2017-11-08] MEDS: Metoprolol XL (24 HR) Succ 50 MG TAB.ER.24H PO SCH (08:21)
[2017-11-08] MEDS: Gabapentin 400 MG CAPSULE PO SCH ×3 (08:21→20:14)
[2017-11-08] MEDS: Aspirin 81 MG TAB.CHEW PO SCH (08:21)
[2017-11-08] MEDS: Insulin DETEMIR 100 UNIT/ML X5UNITS SQ SCH ×2 (08:22→20:15)
--- NOTE | 2017-11-08 11:06 | EEG/EMG/Oth Biometrics Report ---
EEG Procedure Report Date of procedure: 11/08/17 EEG Procedure: Routine EEG Procedure Note: This is a report of a 21 channel bipolar and referential montage EEG. A posterior dominant rhythm consists of 6-7 Hz moderate voltage theta frequency. Occasional alpha frequencies and beta frequencies are intermixed. However this background is poorly organized and poorly sustained. Hyperventilation is not performed then the recording. There is no sleep activity identified during the study. Photic stimulation is performed and does not produce a driving response. The EKG rhythm strip is low voltage however normal sinus rhythm with occasional PVCs at 66 bpm. Impressions: This EEG recording is abnormal and is consistent with a mild to moderately generalized encephalopathy. There is no evidence of epileptiform activity identified during the study. Comment: A normal EEG does not preclude a diagnosis of seizure or epilepsy. If the clinical suspicion for seizure activity is high, serial EEGs or perhaps a prolonged recording may increase the yield. Please correlate clinically.
--- NOTE | 2017-11-08 11:11 | Internal Med Progress Note ---
<Estelita Oliveros - Last Filed: 11/08/17 12:50> Hospitalist Progress Note - Encounter Date of Encounter: 11/08/17 Time of Encounter: 11:00 - Subjective Interval History: Patient seen and examined at bedside. He is alert and oriented x3. He denies headache, change in vision, shortness of breath, dysuria. He has not had any seizures while admitted. He has not complaints at this time. - Exam Vitals: Temp Pulse Resp BP Pulse Ox 97.8 F 60 18 137/87 97 11/08/17 07:50 11/08/17 07:50 11/08/17 07:55 11/08/17 07:50 11/08/17 07:55 Exam: General: pleasant, without distress, weak HEENT: Head atraumatic, normocephalic, absent ear discharge or trauma, Moist Mucous Membranes, uvula midline Neck: nontender to palpation, absent lymphadenopathy, Cardiovascualr: Regular rate and rhythm with no murmur, absent gallops or rubs Lungs: rhonci bilaterally, not in respiratory distress Abdomen: Soft nontender, nondistended positive bowel sounds, absent hepatomegaly Skin: Left knee bruising, nasal bruising, absent rash, absent open wounds and nodules MSK: absent clubbing, cyanosis, joints without swelling Neuro: Cranial nerves II through XII intact, UE and LE sensation equal bilaterally, UE and LEstrength 5/5, alert oriented 3 Psych: good insight and judgment - Assessment and Plan (1) Seizure Current Visit: Yes Status: Acute Assessment and Plan: 60 y/o male presented with seizures. Patient was observed to have a tonic- clonic seizure for 3 minutes with postictal state. No urination or tongue biting. Patient has history of seizures but was not on any antiepileptics. Was supposed to follow with Dr. Ramos but missed all appt in past. no seizures since admitted patient is at baseline, no focal neurologic deficits. head CT normal EEG: abnormal and is consistent with a mild to moderately generalized encephalopathy. There is no evidence of epileptiform activity identified during the study. -Loaded with Keppra 1500 mg. And started on Keppra 500 mg BID PO -seizure pre-cautions -Neurology consulted and following. MRI ordered. -tox screen pending (2) HTN (hypertension) Current Visit: Yes Status: Chronic Assessment and Plan: hx of HTN BP controlled -Continue home lisinopril (3) COPD (chronic obstructive pulmonary disease) Current Visit: Yes Status: Chronic Assessment and Plan: Hx chronic COPD, Not an exacerbation -Continue home Symbicort (4) Coronary artery disease Current Visit: Yes Status: Acute Assessment and Plan: history of coronary artery disease Patient has a left heart catheter in April 2016 with placement of drug-eluting stents to the proximal LAD which had a blockage of 90%. denies chest pain trop WNL CK 69 -Continue aspirin, Plavix, beta azra, atorvastatin (5) Weight loss Current Visit: Yes Status: Acute Assessment and Plan: Patient reports 40 pound weight loss in last month. Reports poor appetite and progressive weakness Patient's PCP ordered PSA which was normal. Patent reports colonoscopy 3 years ago and a tubular adenoma was found. Colonoscopy has been scheduled outpatient Recent CT of the chest was negative for any malignancy. -Cardiac ADA diet (6) Diabetes mellitus Current Visit: Yes Status: Acute Assessment and Plan: Patient has poorly controlled diabetes mellitus insulin-dependent A1c is 9.9 -cardiac ADA diet -levemir 5unit BID -low dose sliding scale insulin (7) Depression Current Visit: Yes Status: Acute Assessment and Plan: Patient has history of depression Continue home medications. DVT Prophylaxis: heparin sq - Time Spent with Patient Total time spent is greater than 50% in coordination of care (as documented) at patient's floor/unit and/or counseling patient: Internal Medicine: Result - Labs CBC & Chem 7: 11/08/17 02:18 11/07/17 03:28 Labs: Short CBC 11/08/17 Range/Units 02:18 WBC 6.5 (4.3-11.1) K/mcL Hgb 11.3 L (12.9-16.9) g/dL Hct 33.8 L (37.5-50.1) % Plt Count 194 (140-400) K/mcL - ABG Interpretation ABG results: PT/INR, D-dimer PT 11.3 Seconds (9.4-12.1) 11/06/17 18:14 Consult Discharge Plan - Plan Referrals: Cyrus Coyne, [Primary Care Provider] - <Guanakito Treviño - Last Filed: 11/08/17 14:28> Hospitalist Progress Note - Encounter Date of Encounter: 11/08/17 - Exam Vitals: Temp Pulse Resp BP Pulse Ox 97.8 F 59 16 99/64 96 11/08/17 11:33 11/08/17 11:33 11/08/17 11:33 11/08/17 11:33 11/08/17 11:33 - Assessment and Plan (1) Acute metabolic encephalopathy Current Visit: Yes Status: Resolved (2) HTN (hypertension) Current Visit: Yes Status: Chronic (3) COPD (chronic obstructive pulmonary disease) Current Visit: Yes Status: Chronic (4) Seizure Current Visit: Yes Status: Acute (5) Coronary artery disease Current Visit: Yes Status: Acute (6) Weight loss Current Visit: Yes Status: Acute (7) Diabetes mellitus Current Visit: Yes Status: Acute (8) Depression Current Visit: Yes Status: Acute - Time Spent with Patient Total time spent is greater than 50% in coordination of care (as documented) at patient's floor/unit and/or counseling patient: Internal Medicine: Result - Labs CBC & Chem 7: 11/08/17 02:18 11/07/17 03:28 Labs: Short CBC 11/08/17 Range/Units 02:18 WBC 6.5 (4.3-11.1) K/mcL Hgb 11.3 L (12.9-16.9) g/dL Hct 33.8 L (37.5-50.1) % Plt Count 194 (140-400) K/mcL - ABG Interpretation ABG results: PT/INR, D-dimer PT 11.3 Seconds (9.4-12.1) 11/06/17 18:14 <Estelita Oliveros - Last Filed: 11/08/17 12:50> (2) HTN (hypertension) Qualifiers: Hypertension type: essential hypertension Qualified Code(s): I10 - Essential (primary) hypertension (3) COPD (chronic obstructive pulmonary disease) Qualifiers: COPD type: unspecified COPD Qualified Code(s): J44.9 - Chronic obstructive pulmonary disease, unspecified (4) Coronary artery disease Qualifiers: Coronary Disease-Associated Artery/Lesion type: false pass artery [place] vs. 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 use: with care home use Diabetes mellitus complication status: without complication Qualified Code(s): E11.9 - Type 2 diabetes mellitus without complications; Z79.4 - shelter (current) use of insulin (7) Depression Qualifiers: Depression Type: major depressive disorder Major depression recurrence: unspecified whether recurrent Active/Remission status: remission status unspecified Qualified Code(s): F32.9 - Major depressive disorder, single episode, unspecified <Guanakito Treviño - Last Filed: 11/08/17 14:28> (2) HTN (hypertension) Qualifiers: Hypertension type: essential hypertension Qualified Code(s): I10 - Essential (primary) hypertension (3) COPD (chronic obstructive pulmonary disease) Qualifiers: COPD type: unspecified COPD Qualified Code(s): J44.9 - Chronic obstructive pulmonary disease, unspecified (5) Coronary artery disease Qualifiers: Coronary Disease-Associated Artery/Lesion type: false pass artery [place] vs. 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
[2017-11-08] MEDS ORDERED: Gadolinium Contrast Agent (WT Based) IV PRN (12:09)
--- NOTE | 2017-11-08 12:24 | Neurology Progress Note ---
Date of Encounter: 11/08/17 Time of Encounter: 12:22 Assessment and Plan (1) Generalized seizure Current Visit: No Status: Acute I will order an MRI scan of the brain today with and without contrast to attempt to identify some abnormality that might be responsible for these episodes of seizure. Otherwise I will recommend that we maintain him on the levetiracetam 500 mg twice a day. Hopefully upon discharge she will be more diligent in keeping follow-up appointments. Subjective Interval history: The chart was reviewed, patient was seen and examined. He is much more awake and alert today. Seems to be back to his normal baseline. He has had no further episodes of seizures since admission. He has no complaints today. I did review his EEG which revealed generalized encephalopathy. I did not identify any specific evidence of seizure activity. He has no complaints today. He is currently sitting in bed watching television. Objective - Constitutional Vitals: Temp Pulse Resp BP Pulse Ox 97.8 F 59 16 99/64 96 11/08/17 11:33 11/08/17 11:33 11/08/17 11:33 11/08/17 11:33 11/08/17 11:33 - Neurological Exam Motor Examination: Present: grossly full strength in all extremities (Patient does have high arches and hammertoes bilaterally. He otherwise has good strength throughout.) Sensation intact: Present: intact Reflex and gait examination: other (Deep tendon reflexes are diminished of the biceps triceps and brachioradialis. They are absent at the patellar and Achilles symmetrically.) Mental Status Examination: Present: awake, alert, oriented to person, oriented to place, follows commands appropriately Cranial nerve examination: Present: PERRL, EOMI, visual casiano intact, corneal reflexes brisk symmetrically, sensory to face intact, mastication intact, no facial asymmetry is present, no dysarthria, hearing is intact symmetrically, soft palate elevates bilaterally upon phonation, gag reflex intact, flexes SCM and trapezius muscles symmetrically with full power, tongue protrudes midline, no atrophy or facial fasiculations present Results - Laboratory Findings CBC and BMP: 11/08/17 02:18 11/07/17 03:28 Abnormal lab findings: Abnormal lab results RBC 3.86 M/mcL (4.19-5.50) L 11/08/17 02:18 Hgb 11.3 g/dL (12.9-16.9) L 11/08/17 02:18 Hct 33.8 % (37.5-50.1) L 11/08/17 02:18 RDW 15.0 % (11.5-14.5) H 11/08/17 02:18 Creatinine 0.69 mg/dL (0.70-1.30) L 11/07/17 03:28 Glucose 254 mg/dL (70-105) H 11/07/17 03:28 POC Glucose 122 mg/dL (70-99) H 11/07/17 19:46 Alkaline Phosphatase 163 Units/L (34-104) H 11/06/17 18:14 Ur Specific [place] 1.030 (1.010-1.025) H 11/06/17 19:53 Urine Protein 30 mg/dL (Neg-Trace) H 11/06/17 19:53 Urine Glucose (UA) >=1000 mg/dL (Normal) H 11/06/17 19:53 Urine Ketones Trace mg/dL (Negative) H 11/06/17 19:53 Urine Blood Small (Negative) H 11/06/17 19:53 Urine Microscopic WBC 5-15 per hpf (0-3) H 11/06/17 19:53 Ur Squamous Epith Cells Moderate per lpf (None-Few) H 11/06/17 19:53 Urine Yeast Few per hpf (None Seen) H 11/06/17 19:53 Consult Discharge Plan - Plan Referrals: Cyrus Coyne DO [Primary Care Provider] -
[2017-11-08 13:41] LABS: Amphetamine Screen,Urine Negative ng/mL (Cutoff=1000); Barbiturate Screen,Urine Negative ng/mL (Cutoff=200); Benzodiazepines Screen,Urine Positive ng/mL (Cutoff=200); Cannabinoid Screen,Urine Negative ng/mL (Cutoff = 50); Cocaine Screen,Urine Negative ng/mL (Cutoff= 300); Opiate Screen,Urine Negative ng/mL (Cutoff=300); Phencyclidine Screen,Urine Negative ng/mL (Cutoff=25)
[2017-11-08] MEDS: *HR* OxyCODONE/APAP 5/325 TABLET PO PRN (18:01)
[2017-11-08] MEDS: levETIRAcetam 250 MG TABLET PO SCH (20:14)
[2017-11-09] MEDS: *HR* OxyCODONE/APAP 5/325 TABLET PO PRN ×2 (03:50→10:32)
[2017-11-09 05:14] LABS: Hematocrit 41.1 % (37.5-50.1); Mean Corpuscular HGB Conc 33.6 g/dL (31.6-35.5); Mean Corpuscular Hemoglobin 29.9 pg (28.0-33.3); Mean Corpuscular Volume 89.2 fL (83.0-100.0); Mean Platelet Volume 9.5 fL (9.4-12.4); Platelet Count 205 K/mcL (140-400); Red Blood Count 4.61 M/mcL (4.19-5.50); Red Cell Distribution Width 14.8 % (11.5-14.5)
[2017-11-09 05:26] LABS: Hemoglobin 13.8 g/dL (12.9-16.9)
[2017-11-09 05:34] LABS: BUN/Creatinine Ratio 24 (6-26); Blood Urea Nitrogen 18 mg/dL (8-23); Calcium 9.1 mg/dL (8.6-10.3); Carbon Dioxide 23 mEq/L (23-29); Chloride 103 mEq/L (98-107); Glucose 111 mg/dL (70-105); Osmolality,Calculated 289 (280-300); Potassium 3.1 mEq/L (3.5-5.1); Sodium 138 mEq/L (136-145); eGFR For Non-African Americans > 60 (> 60)
[2017-11-09] MEDS: *HR* Heparin 5,000 UNIT/ML VIAL SQ SCH (05:34)
[2017-11-09] MEDS: Budesonide/Formoterol 160/4.5 1 PUFF INH IH SCH (07:40)
[2017-11-09 07:48] VITALS: BP 140/84
--- NOTE | 2017-11-09 07:52 | Neurology Progress Note ---
Date of Encounter: 11/09/17 Time of Encounter: 07:50 Assessment and Plan (1) Generalized seizure Current Visit: No Status: Acute At this juncture I recommend that we maintain the levetiracetam 500 mg twice a day. His workup was negative however. I will like to follow up with her my office after discharge for further recommendations. I have not identified any specific etiology to explain why he would be developing seizures at this time. May discharge at your discretion. Subjective Interval history: The chart was reviewed, the patient was seen and examined. Patient had an uneventful night. He is back to his normal baseline status. No further episodes of seizure activity. MRI scan of the brain reveals evidence of chronic ischemic white matter change however reveals no evidence of mesial temporal sclerosis or any cortical lesion that might give rise to seizure activity. No enhancement on the MRI. EEG recording was negative for evidence of seizure activity. Patient is anxious for discharge. Objective - Constitutional Vitals: Temp Pulse Resp BP Pulse Ox 98 F 64 15 140/84 97 11/09/17 07:43 11/09/17 07:43 11/09/17 07:43 11/09/17 07:43 11/09/17 07:43 - Neurological Exam Motor Examination: Present: grossly full strength in all extremities (Patient does have high arches and hammertoes bilaterally. He otherwise has good strength throughout.) Reflex and gait examination: other (Deep tendon reflexes are diminished of the biceps triceps and brachioradialis. They are absent at the patellar and Achilles symmetrically.) Mental Status Examination: Present: awake, alert, oriented to person, oriented to place, follows commands appropriately, answers questions appropriately, no agnosia, no aphasia, no aproxia Cranial nerve examination: Present: PERRL, EOMI, visual casiano intact, corneal reflexes brisk symmetrically, sensory to face intact, mastication intact, no facial asymmetry is present, no dysarthria, hearing is intact symmetrically, soft palate elevates bilaterally upon phonation, gag reflex intact, flexes SCM and trapezius muscles symmetrically with full power, tongue protrudes midline, no atrophy or facial fasiculations present Cerebellar examination: Present: no dysmetria, performs finger to nose and heel to quiroga symmetrically without ataxia, no gait ataxia, no truncal ataxia Results - Laboratory Findings CBC and BMP: 11/09/17 03:20 11/09/17 03:20 Abnormal lab findings: Abnormal lab results RDW 14.8 % (11.5-14.5) H 11/09/17 03:20 Potassium 3.1 mEq/L (3.5-5.1) L 11/09/17 03:20 Glucose 111 mg/dL (70-105) H 11/09/17 03:20 POC Glucose 134 mg/dL (70-99) H 11/08/17 19:30 Alkaline Phosphatase 163 Units/L (34-104) H 11/06/17 18:14 Ur Specific [place] 1.030 (1.010-1.025) H 11/06/17 19:53 Urine Protein 30 mg/dL (Neg-Trace) H 11/06/17 19:53 Urine Glucose (UA) >=1000 mg/dL (Normal) H 11/06/17 19:53 Urine Ketones Trace mg/dL (Negative) H 11/06/17 19:53 Urine Blood Small (Negative) H 11/06/17 19:53 Urine Microscopic WBC 5-15 per hpf (0-3) H 11/06/17 19:53 Ur Squamous Epith Cells Moderate per lpf (None-Few) H 11/06/17 19:53 Urine Yeast Few per hpf (None Seen) H 11/06/17 19:53 U Benzodiazepines Scrn Positive ng/mL (Ovjila=312) H 11/08/17 12:40 Consult Discharge Plan - Plan Referrals: Cyrus Coyne DO [Primary Care Provider] -
--- NOTE | 2017-11-09 08:48 | Discharge Summary ---
<Rachael Cifuentes N - Last Filed: 11/09/17 10:18> - NOTES TO OUTPATIENT PROVIDER Notes to Outpatient Provider: Patient presented after having a witnessed tonic- clonic seizure. EEG and MRI did not show any acute underlying cause. He was discharged on keppra 500mg BID and instructed to keep neurology followup. Orders not resulted at time of discharge: Pending orders 11/08/17 08:51 EKG [ECG 12 lead ECG] [ECG] Routine Date of Encounter: 11/09/17 Time of Encounter: 08:48 - Discharge Diagnosis (1) HTN (hypertension) Priority: Secondary Status: Chronic Qualifiers: Hypertension type: essential hypertension Qualified Code(s): I10 - Essential (primary) hypertension (2) COPD (chronic obstructive pulmonary disease) Priority: Secondary Status: Chronic Qualifiers: COPD type: unspecified COPD Qualified Code(s): J44.9 - Chronic obstructive pulmonary disease, unspecified (3) Seizure Priority: Primary Status: Acute (4) Coronary artery disease Priority: Secondary Status: Acute Qualifiers: Coronary Disease-Associated Artery/Lesion type: morongo artery [place] vs. 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 Craig is a 62-year old male who presented to the ED on 11/06 due to seizure. He reported falling in the shower that morning, and had a witnessed tonic-clonic seizure shortly after. He reported a known history of seizures that occurred approximately 10 years ago, but has reportedly never been on antiepileptic medications and has a history of noncompliance. EEG performed during this hospitalization demonstrated abnormal recording consistent with mild to moderately generalized encephalopathy with no evidence of epileptiform activity. Brain MRI revealed subtle areas of high signal involving the corpus callosum anteriorly on the left and in the right posterior limb of the internal capsule and anterior right midbrain and brett. No areas of restricted diffusion were noted, and there was no abnormal inhancement in the visualized brain parenchyma. Patient was started on keppra 500mg BID, and discharged with a prescription of that medication. He did not have additional seizures during this hospitalization. Patient was educated on the importance of keeping neurology followup appointment. He was instructed to followup with his PCP in 3-5 days and with neurology as scheduled. Discharge discussed with: patient, family, nurse - Time Spent with Patient Total time spent providing and/or coordinating discharge services: - Discharge Medications Prescriptions: levETIRAcetam [Keppra] 500 mg PO Q12HR #120 tablet Home Medications: Citalopram [CeleXA] 40 mg PO DAILY 10/12/15 [History] Zolpidem [Ambien] 10 mg PO HS PRN 11/15/15 [History] Albuterol Sulfate [Albuterol Inhaler] 2 puff IH Q4H PRN 03/18/16 [History] Aspirin 81 mg PO DAILY 03/18/16 [History] Atorvastatin Calcium [Lipitor] 40 mg PO HS 03/18/16 [History] Budesonide/Formoterol 160/4.5 [Symbicort 160/4.5] 2 puff IH BIDR 03/18/16 [ History] Clopidogrel [Plavix] 75 mg PO DAILY 03/18/16 [History] Nitroglycerin [Nitrostat] 0.4 mg SL Q5M PRN 03/18/16 [History] Gabapentin [Neurontin] 800 mg PO TID 11/25/16 [History] Ibuprofen 800 mg PO QID PRN #20 tablet 02/19/17 [Rx] ALPRAZolam [Xanax 1 MG Tablet] 1 mg PO BID 09/04/17 [History] Lisinopril-HCTZ 20-12.5 [Prinzide 20-12.5] 1 tab PO BID 09/04/17 [History] Meloxicam [Mobic] 15 mg PO DAILY 09/04/17 [History] Metformin HCl [Metformin HCl ER] 1,000 mg PO BID 09/04/17 [History] Metoprolol Succinate [Toprol Xl] 100 mg PO DAILY 09/04/17 [History] Oxycodone HCl 15 mg PO Q4H PRN 09/04/17 [History] Insulin NPH Human Isophane [Humulin N Kwikpen] 20 unit SQ BID 11/07/17 [History] levETIRAcetam [Keppra] 500 mg PO Q12HR #120 tablet 11/09/17 [Rx] Allergies/Adverse Reactions: 3 Allergy/AdvReac Type Severity Reaction Status Date / Time codeine AdvReac Vomiting Verified 11/07/17 00:49 Date of admission: 11/07/17 00:00 Primary care physician: Cyrus Coyne DO Consults: 11/07/17 18:40 Consult to Interpret Exam [CONS] Routine Consulting Provider: Tj Ramos Consult to Interpret Exam: Interpret EEG Discharging clinician: Rachael Cifuentes Anticipated date of discharge: 11/09/17 - Constitutional Vitals: Temp Pulse Resp BP Pulse Ox 98 F 64 15 140/84 97 11/09/17 07:43 11/09/17 07:43 11/09/17 07:43 11/09/17 07:43 11/09/17 07:43 Exam: * General: Pleasant adult male resting in bed comfortably. He is awake and alert and answers questions appropriately. * HEENT: Atraumatic and normocephalic. * Cardiovascular: Regular rate and rhythm. S1 and S2 present. No murmurs, gallops, or rubs. * Respiratory: CTA bilaterally. Chest rises and falls symmetrically. * Gastrointestinal: Active bowel sounds x 4 quadrants. Abdomen is soft and nontender. * Extremities: No clubbing, cyanosis, or edema. - Patient Status Disposition: Home, Self-Care Condition: Fair Functional capacity at discharge: independent ambulation Overall status at discharge: patient is progressing back to baseline - Discharge Instructions Instructions: Levetiracetam (By mouth) Follow Up With: Sujatha Barclay MD [Partnered Physician] - 11/16/17 1:30 pm Tj Ramos DO [Partnered Physician] - 11/27/17 9:15 am Additional Instructions: Follow up with your PCP in 3-5 days. Keep your neurology followup appointment as scheduled. Continue taking home medications. Continue taking keppra 500mg twice daily. Return to the emergency department if you experience additional seizures, or if new concerns arise. - Diet and Activity Activity: increase activity as tolerated, resume usual activities as tolerated Diet: diabetic diet <Guanakito Treviño - Last Filed: 11/09/17 18:29> Orders not resulted at time of discharge: Pending orders 11/08/17 08:51 EKG [ECG 12 lead ECG] [ECG] Routine Date of Encounter: 11/09/17 - Discharge Diagnosis (1) Acute metabolic encephalopathy Status: Resolved (2) HTN (hypertension) Status: Chronic Qualifiers: Hypertension type: essential hypertension Qualified Code(s): I10 - Essential (primary) hypertension (3) COPD (chronic obstructive pulmonary disease) Status: Chronic Qualifiers: COPD type: unspecified COPD Qualified Code(s): J44.9 - Chronic obstructive pulmonary disease, unspecified (4) Seizure Status: Acute (5) Coronary artery disease Status: Acute Qualifiers: Coronary Disease-Associated Artery/Lesion type: morongo artery [place] vs. 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 Craig is a 62 year old male - Time Spent with Patient Total time spent providing and/or coordinating discharge services: 38min Date of admission: 11/07/17 00:00 Primary care physician: Cyrus Coyne DO Consults: 11/07/17 18:40 Consult to Interpret Exam [CONS] Routine Consulting Provider: Tj Ramos Consult to Interpret Exam: Interpret EEG - Constitutional Vitals: Temp Pulse Resp BP Pulse Ox 98 F 64 15 140/84 97 11/09/17 07:43 11/09/17 07:43 11/09/17 07:43 11/09/17 07:43 11/09/17 07:43 - Attending Attestation I examined this patient and my medical decision-making was reviewed with the Resident Physician on 11/09/17. I agree with the documented findings, disposition and treatment plan as described except to the extent set forth below. Mr Craig has been admitted for acute encephalopathy and seizure disorder. He is doing well on Keppra. He is currently afebrile and ready for discharge home. Exam alert Comfortable Mucus membranes dry Heart reg No wheeze abd soft No edema Plan D/C home today on Keppra.
[2017-11-09] MEDS: Metoprolol XL (24 HR) Succ 50 MG TAB.ER.24H PO SCH (08:50)
[2017-11-09] MEDS: Gabapentin 400 MG CAPSULE PO SCH (08:50)
[2017-11-09] MEDS: Aspirin 81 MG TAB.CHEW PO SCH (08:50)
[2017-11-09] MEDS: ALPRAZolam 1 MG TABLET PO SCH (08:50)
[2017-11-09] MEDS: levETIRAcetam 250 MG TABLET PO SCH (08:50)
[2017-11-09] MEDS: Lisinopril-HCTZ 20-12.5mg TABLET PO SCH (08:51)
[2017-11-09] MEDS: Insulin DETEMIR 100 UNIT/ML X5UNITS SQ SCH (08:51)
[2017-11-09] MEDS: Furosemide 20 MG TABLET PO SCH (08:51)
[2017-11-09] MEDS: Insulin LISPRO 300 UNITS/3 ML VIAL SQ SCH ×2 (08:51→13:43)
--- NOTE | 2017-11-09 22:20 | Electrocardiograph Report ---
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
== END 2017-11-09 13:44 | disposition home or self-care (01) ==
LOC: EMEROOARM 17:55 → 2NENU 17:55 → SUATTDRO 11-07 → 2NENU 11-07 00:12
PROVIDERS: ADMIT Internal Medicine; ATTEND Internal Medicine

== ENCOUNTER 2018-04-12 13:44 | Inpatient (IN) ==
[2018-04-12] MEDS ORDERED: *HR* LORazepam 2 MG/ML VIAL ONE (13:49)
[2018-04-12] MEDS ORDERED: *HR* LORazepam 2 MG/ML VIAL IVP ONE (13:55)
[2018-04-12] MEDS: 0.9 % Sodium Chloride 1,000 ML IVC ONE ×2 (14:00→16:19)
--- NOTE | 2018-04-12 14:00 | Emergency Department Note ---
Disposition Clinical Impression: Status epilepticus Pneumococcal pneumonia Qualifiers: Laterality: unspecified laterality Lung location: unspecified part of lung Qualified Code(s): J13 - Pneumonia due to Streptococcus pneumoniae Disposition: Admitted As Inpatient Condition: Fair Referrals: Cyrus Coyne DO [Primary Care Provider] - Forms: ED Satisfaction Letter Time of Disposition: 16:45 General Adult HPI - General Chief complaint: ED Seizure Stated complaint: seizure Time Seen by Provider: 04/12/18 13:45 Nursing Notes Reviewed: Yes Vital Signs Reviewed: Yes - History of Present Illness HPI Narrative: 62 year old male with PMHx of seizures brought in by EMS with seizure activity. Patient was found seizing in home. Patient is non-responsive on arrival and had several seizures in room during evaluation. Per EMS, patient takes keppra for history of seizures, and he hasn't been compliant with his medication. He was given 4 mg of IV versed. Initial glucose check showed read of "high," unsure if history of diabetes. Unknown if patient drinks alcohol or takes drugs. Patient had loss of bladder tone, multiple abrasions on head, and dried blood in nares on arrival. Pt Subjective Complaint: Seizures - Related Data Home Medications Medication Instructions Recorded Confirmed Citalopram [CeleXA] 40 mg PO DAILY 10/12/15 12/29/17 Zolpidem [Ambien] 10 mg PO HS PRN 11/15/15 12/29/17 Albuterol Sulfate [Albuterol 2 puff IH Q4H PRN 03/18/16 12/29/17 Inhaler] Aspirin 81 mg PO DAILY 03/18/16 12/29/17 Atorvastatin Calcium [Lipitor] 40 mg PO HS 03/18/16 12/29/17 Budesonide/Formoterol 160/4.5 2 puff IH BIDR 03/18/16 12/29/17 [Symbicort 160/4.5] Clopidogrel [Plavix] 75 mg PO DAILY 03/18/16 12/29/17 Nitroglycerin [Nitrostat] 0.4 mg SL Q5M PRN 03/18/16 12/29/17 Gabapentin [Neurontin] 800 mg PO TID 11/25/16 12/29/17 ALPRAZolam [Xanax 1 MG Tablet] 1 mg PO BID 09/04/17 12/29/17 Lisinopril-HCTZ 20-12.5 [Prinzide 1 tab PO BID 09/04/17 12/29/17 20-12.5] Meloxicam [Mobic] 15 mg PO DAILY 09/04/17 12/29/17 Metformin HCl [Metformin ER 1,000 mg PO BID 09/04/17 12/29/17 Gastric] Metoprolol Succinate [Toprol Xl] 100 mg PO DAILY 09/04/17 12/29/17 Oxycodone HCl 15 mg PO Q4H PRN 09/04/17 12/29/17 Insulin Degludec [Tresiba 34 units SQ DAILY 12/29/17 12/29/17 Flextouch U-200] Previous Rx's Medication Instructions Recorded Ibuprofen 800 mg PO QID PRN #20 tablet 02/19/17 levETIRAcetam [Keppra] 500 mg PO Q12HR #120 tablet 11/09/17 Azithromycin 250 mg PO DAILY #4 tablet 12/29/17 Cefdinir [Omnicef] 300 mg PO BID #14 capsule 12/29/17 Allergies Allergy/AdvReac Type Severity Reaction Status Date / Time codeine AdvReac Vomiting Verified 04/12/18 14:08 Limitations: ROS unobtainable due to patients medical condition Past Medical History - Past Medical History Medical history: Reports: arthritis, asthma, cardiomyopathy, CHF, COPD, coronary artery disease, CVA, diabetes, GERD, hyperlipidemia, hypertension, myocardial infarction, peripheral artery disease, other Surgical history: Reports: angioplasty/stent, cholecystectomy, herniorrhaphy, knee replacement, orthopedic, other, other Psychiatric history: Reports: anxiety, depression, other - Social History Smoking Status: Current every day smoker Smokeless Tobacco Status: No Alcohol use: Reports: none Drug use: Reports: none Physical Exam - General General appearance: obtunded - Head Head exam: other (abrasion over left forehead and right forehead) - Eye Eye exam: Present: normal appearance. Absent: scleral icterus, conjunctival injection, miosis, mydriasis, periorbital swelling - ENT ENT exam: other (dried blood in both nares, abrasion on tip of nose) - Neck Neck exam: Present: trachea midline - Chest Chest inspection: Present: normal inspection - Respiratory Respiratory exam: Present: normal lung sounds bilaterally - Cardiovascular Cardiovascular exam: Present: regular rate, normal rhythm - Abdominal Exam Abdominal exam: Present: soft, normal bowel sounds. Absent: distention - Extremities Exam Extremities exam: Absent: pedal edema - Skin Skin exam: Present: warm, dry, normal color Course Course Narrative: 62 year old male with PMHx of seizures on keppra presents by EMS actively seizraul g. Patient has had several seizures since arriving, he is obtunded and unable to provide history. EMS states he has not been compliant with his keppra. Unsure if he has history of diabetes or alcohol abuse. Patient was given 4 mg of IV versed. Initial glucose read was "high." Patient is afebrile, tachycardic to 105, normotensive. On exam, patient is obtunded, has multiple abrasions on forehead and nose, dried blood in nares, heart mildly tachy normal rhythm, abdomen was soft and non-distended, no pedal edema, pulses +2 in radial and posterior tibialis bilaterally. Will order CT head and cervical spine, CBC, CMP, trop, lactic acid, ethanol, chest x-ray, EKG, urinary cath with UA. Will start IV fluids and 2 mg ativan. - Reevaluation(s) Reevaluation #1: Patient re-evaluated. Is now alert and oriented with family in room. He does have a history of seizures and takes keppra BID. He admits to missing 5-7 doses of keppra per month. He states he is a type 2 diabetic on insulin. He and family deny alcohol and drug use. Patient is tachycardic to 102, saturation at 94% on 4 L oxygen. Chest x-ray shows diffuse, bilateral interstitial and airspace opacities. Will start treatment with levaquin. CBC shows leukocytosis of 15. Lactic acid elevated to 5.6, likely due to active seizure close to blood draw. Ethyl alcohol normal. UA shows elevated glucose and ketones. CMP and trop pending. Vital Signs Temperature 97.9 F 04/12/18 13:55 Pulse Rate 105 04/12/18 13:55 Respiratory Rate 20 04/12/18 13:55 Blood Pressure 123/60 04/12/18 13:55 O2 Sat by Pulse Oximetry 83 04/12/18 13:55 Temperature 97.9 F 04/12/18 13:55 Pulse Rate 105 04/12/18 16:30 Respiratory Rate 20 04/12/18 16:30 Blood Pressure 166/98 04/12/18 16:30 O2 Sat by Pulse Oximetry 93 04/12/18 16:30 Oxygen Delivery Oxygen Delivery Nasal Cannula Medical Decision Making - MDM Narrative Medical decision making narrative: 62 year old male with PMHx of seizures on keppra presents by EMS actively seizing. Patient has had several seizures since arriving, he is obtunded and unable to provide history. EMS states he has not been compliant with his keppra. Unsure if he has history of diabetes or alcohol abuse. Patient was given 4 mg of IV versed. Initial glucose read was "high." Patient is afebrile, tachycardic to 105, normotensive. On exam, patient is obtunded, has multiple abrasions on forehead and nose, dried blood in nares, heart mildly tachy normal rhythm, abdomen was soft and non-distended, no pedal edema, pulses +2 in radial and posterior tibialis bilaterally. Patient given 2 mg ativan, IV fluids, and b anana bag. Upon re-evaluation, patient is alert and oriented. Family reports he has a history of seizures and misses 5-7 doses of keppra per month, type 2 DM on insulin. Patient and family deny history of alcohol use. Chest x-ray shows diffuse bilateral air-space opacities. Started patient on Levaquin. Initial lactic acid was elevated to 5.6, likely due to active seizure during blood draw. CBC shows leukocytosis of 15. CMP shows glucose of 1023. UA positive for high glucose and ketones. Trop positive at 0.04. Glucose elevated to 1023. Started patient on insulin drip. Patient's anion gap of 22. Repeat lactic acid is 1.2. Patient will be admitted to hospitalist service to and consult to neurology. - Medical Records Medical records reviewed: Yes I reviewed the patient's medical records. - Lab Data Lab results reviewed: Yes I reviewed the patient's lab results. Result diagrams: 04/12/18 14:11 04/12/18 14:11 Lab Results 04/12/18 04/12/18 04/12/18 Range/Units 13:49 13:52 14:11 WBC 15.1 H (4.3-11.1) K/mcL RBC 3.98 L (4.19-5.50) M/mcL Hgb 12.2 L (12.9-16.9) g/dL Hct 36.5 L (37.5-50.1) % MCV 91.7 (83.0-100.0) fL MCH 30.7 (28.0-33.3) pg MCHC 33.4 (31.6-35.5) g/dL RDW 14.8 H (11.5-14.5) % Plt Count 266 (140-400) K/mcL MPV 10.1 (9.4-12.4) fL Immature Gran % 0.5 (0-4) % Seg Neutrophils % 93.3 % Lymphocytes % 3.9 % Monocytes % 2.2 % Eosinophils % 0.0 % Basophils % 0.1 % Neutrophils # 14.1 H (1.6-8.9) K/mcL Lymphocytes # 0.6 (0.6-4.6) K/mcL Monocytes # 0.3 (0.0-1.3) K/mcL Eosinophils # 0.0 (0.0-0.6) K/mcL Basophils # 0.0 (0.0-0.2) K/mcL Sodium (136-145) mEq/L Potassium (3.5-5.1) mEq/L Chloride (98-107) mEq/L Carbon Dioxide (23-29) mEq/L BUN (8-23) mg/dL Creatinine (0.70-1.30) mg/dL Est GFR ( Amer) (> 60) Est GFR (Non-Af Amer) (> 60) BUN/Creatinine Ratio (6-26) Glucose (70-105) mg/dL POC Glucose > 600 H* > 600 H* (70-99) mg/dL Calculated Osmolality (280-300) Lactic Acid (0.5-2.2) mmol/L Calcium (8.6-10.3) mg/dL Total Bilirubin (0.3-1.0) mg/dL AST (13-39) Units/L ALT (7-52) Units/L Alkaline Phosphatase (34-104) Units/L Troponin I (< 0.04) ng/mL Serum Total Protein (6.4-8.9) g/dL Albumin (3.5-5.7) g/dL Globulin (2.4-3.5) g/dL Albumin/Globulin Ratio (1.1-2.2) Urine Color (Yellow) Urine Clarity (Clear) Urine pH (5.0-8.0) pH Units Ur Specific [place] (1.010-1.025) Urine Protein (Neg-Trace) mg/dL Urine Glucose (UA) (Normal) mg/dL Urine Ketones (Negative) mg/dL Urine Blood (Negative) Urine Nitrite (Negative) Urine Bilirubin (Negative) Urine Urobilinogen (Normal) mg/dL Ur Leukocyte Esterase (Negative) Urine Microscopic RBC (0-3) per hpf Urine Microscopic WBC (0-3) per hpf Ur Squamous Epith Cells (None-Few) per lpf Urine Bacteria (None-Few) per hpf Hyaline Casts (None-Few) per lpf Ur Culture Indicated? (NO) Ethyl Alcohol (Less than 10) mg/dL 04/12/18 04/12/18 04/12/18 Range/Units 14:11 14:11 14:30 WBC (4.3-11.1) K/mcL RBC (4.19-5.50) M/mcL Hgb (12.9-16.9) g/dL Hct (37.5-50.1) % MCV (83.0-100.0) fL MCH (28.0-33.3) pg MCHC (31.6-35.5) g/dL RDW (11.5-14.5) % Plt Count (140-400) K/mcL MPV (9.4-12.4) fL Immature Gran % (0-4) % Seg Neutrophils % % Lymphocytes % % Monocytes % % Eosinophils % % Basophils % % Neutrophils # (1.6-8.9) K/mcL Lymphocytes # (0.6-4.6) K/mcL Monocytes # (0.0-1.3) K/mcL Eosinophils # (0.0-0.6) K/mcL Basophils # (0.0-0.2) K/mcL Sodium 133 L (136-145) mEq/L Potassium 4.1 (3.5-5.1) mEq/L Chloride 95 L (98-107) mEq/L Carbon Dioxide 16 L (23-29) mEq/L BUN 12 (8-23) mg/dL Creatinine 1.18 (0.70-1.30) mg/dL Est GFR ( Amer) > 60 (> 60) Est GFR (Non-Af Amer) > 60 (> 60) BUN/Creatinine Ratio 10 (6-26) Glucose 1023 H* (70-105) mg/dL POC Glucose (70-99) mg/dL Calculated Osmolality 327 H (280-300) Lactic Acid 5.6 H* (0.5-2.2) mmol/L Calcium 9.3 (8.6-10.3) mg/dL Total Bilirubin 0.6 (0.3-1.0) mg/dL AST 17 (13-39) Units/L ALT 17 (7-52) Units/L Alkaline Phosphatase 204 H (34-104) Units/L Troponin I 0.04 H* (< 0.04) ng/mL Serum Total Protein 7.0 (6.4-8.9) g/dL Albumin 3.7 (3.5-5.7) g/dL Globulin 3.3 (2.4-3.5) g/dL Albumin/Globulin Ratio 1.1 (1.1-2.2) Urine Color Yellow (Yellow) Urine Clarity Clear (Clear) Urine pH 6.0 (5.0-8.0) pH Units Ur Specific [place] > 1.030 H (1.010-1.025) Urine Protein Negative (Neg-Trace) mg/dL Urine Glucose (UA) >=1000 H (Normal) mg/dL Urine Ketones 15 H (Negative) mg/dL Urine Blood Trace H (Negative) Urine Nitrite Negative (Negative) Urine Bilirubin Negative (Negative) Urine Urobilinogen Normal (Normal) mg/dL Ur Leukocyte Esterase Negative (Negative) Urine Microscopic RBC 0-3 (0-3) per hpf Urine Microscopic WBC 0-3 (0-3) per hpf Ur Squamous Epith Cells None Seen (None-Few) per lpf Urine Bacteria None Seen (None-Few) per hpf Hyaline Casts None Seen (None-Few) per lpf Ur Culture Indicated? NO (NO) Ethyl Alcohol < 10 (Less than 10) mg/dL 04/12/18 Range/Units 16:00 WBC (4.3-11.1) K/mcL RBC (4.19-5.50) M/mcL Hgb (12.9-16.9) g/dL Hct (37.5-50.1) % MCV (83.0-100.0) fL MCH (28.0-33.3) pg MCHC (31.6-35.5) g/dL RDW (11.5-14.5) % Plt Count (140-400) K/mcL MPV (9.4-12.4) fL Immature Gran % (0-4) % Seg Neutrophils % % Lymphocytes % % Monocytes % % Eosinophils % % Basophils % % Neutrophils # (1.6-8.9) K/mcL Lymphocytes # (0.6-4.6) K/mcL Monocytes # (0.0-1.3) K/mcL Eosinophils # (0.0-0.6) K/mcL Basophils # (0.0-0.2) K/mcL Sodium (136-145) mEq/L Potassium (3.5-5.1) mEq/L Chloride (98-107) mEq/L Carbon Dioxide (23-29) mEq/L BUN (8-23) mg/dL Creatinine (0.70-1.30) mg/dL Est GFR ( Amer) (> 60) Est GFR (Non-Af Amer) (> 60) BUN/Creatinine Ratio (6-26) Glucose (70-105) mg/dL POC Glucose (70-99) mg/dL Calculated Osmolality (280-300) Lactic Acid 1.2 (0.5-2.2) mmol/L Calcium (8.6-10.3) mg/dL Total Bilirubin (0.3-1.0) mg/dL AST (13-39) Units/L ALT (7-52) Units/L Alkaline Phosphatase (34-104) Units/L Troponin I (< 0.04) ng/mL Serum Total Protein (6.4-8.9) g/dL Albumin (3.5-5.7) g/dL Globulin (2.4-3.5) g/dL Albumin/Globulin Ratio (1.1-2.2) Urine Color (Yellow) Urine Clarity (Clear) Urine pH (5.0-8.0) pH Units Ur Specific [place] (1.010-1.025) Urine Protein (Neg-Trace) mg/dL Urine Glucose (UA) (Normal) mg/dL Urine Ketones (Negative) mg/dL Urine Blood (Negative) Urine Nitrite (Negative) Urine Bilirubin (Negative) Urine Urobilinogen (Normal) mg/dL Ur Leukocyte Esterase (Negative) Urine Microscopic RBC (0-3) per hpf Urine Microscopic WBC (0-3) per hpf Ur Squamous Epith Cells (None-Few) per lpf Urine Bacteria (None-Few) per hpf Hyaline Casts (None-Few) per lpf Ur Culture Indicated? (NO) Ethyl Alcohol (Less than 10) mg/dL - Radiology Data Radiology results reviewed: Yes I reviewed the patient's radiology results. - EKG Data EKG #1 EKG attestation: Yes I reviewed and interpreted this EKG. EKG results narrative: Sinus tachycardia with HR 104, QRS 102, QTc 473
--- NOTE | 2018-04-12 14:07 | Emergency Department Note ---
Disposition Clinical Impression: Status epilepticus Pneumococcal pneumonia Qualifiers: Laterality: unspecified laterality Lung location: unspecified part of lung Qualified Code(s): J13 - Pneumonia due to Streptococcus pneumoniae Disposition: Admitted As Inpatient Condition: Fair Referrals: Cyrus Coyne DO [Primary Care Provider] - Forms: ED Satisfaction Letter General Adult HPI - General Chief complaint: ED Seizure Stated complaint: seizure Time Seen by Provider: 04/12/18 13:45 Nursing Notes Reviewed: Yes Vital Signs Reviewed: Yes - Related Data Home Medications Medication Instructions Recorded Confirmed Citalopram [CeleXA] 40 mg PO DAILY 10/12/15 12/29/17 Zolpidem [Ambien] 10 mg PO HS PRN 11/15/15 12/29/17 Albuterol Sulfate [Albuterol 2 puff IH Q4H PRN 03/18/16 12/29/17 Inhaler] Aspirin 81 mg PO DAILY 03/18/16 12/29/17 Atorvastatin Calcium [Lipitor] 40 mg PO HS 03/18/16 12/29/17 Budesonide/Formoterol 160/4.5 2 puff IH BIDR 03/18/16 12/29/17 [Symbicort 160/4.5] Clopidogrel [Plavix] 75 mg PO DAILY 03/18/16 12/29/17 Nitroglycerin [Nitrostat] 0.4 mg SL Q5M PRN 03/18/16 12/29/17 Gabapentin [Neurontin] 800 mg PO TID 11/25/16 12/29/17 ALPRAZolam [Xanax 1 MG Tablet] 1 mg PO BID 09/04/17 12/29/17 Lisinopril-HCTZ 20-12.5 [Prinzide 1 tab PO BID 09/04/17 12/29/17 20-12.5] Meloxicam [Mobic] 15 mg PO DAILY 09/04/17 12/29/17 Metformin HCl [Metformin ER 1,000 mg PO BID 09/04/17 12/29/17 Gastric] Metoprolol Succinate [Toprol Xl] 100 mg PO DAILY 09/04/17 12/29/17 Oxycodone HCl 15 mg PO Q4H PRN 09/04/17 12/29/17 Insulin Degludec [Tresiba 34 units SQ DAILY 12/29/17 12/29/17 Flextouch U-200] Previous Rx's Medication Instructions Recorded Ibuprofen 800 mg PO QID PRN #20 tablet 02/19/17 levETIRAcetam [Keppra] 500 mg PO Q12HR #120 tablet 11/09/17 Azithromycin 250 mg PO DAILY #4 tablet 12/29/17 Cefdinir [Omnicef] 300 mg PO BID #14 capsule 12/29/17 Allergies Allergy/AdvReac Type Severity Reaction Status Date / Time codeine AdvReac Vomiting Verified 04/12/18 14:08 Past Medical History - Past Medical History Medical history: Reports: arthritis, asthma, cardiomyopathy, CHF, COPD, coronary artery disease, CVA, diabetes, GERD, hyperlipidemia, hypertension, myocardial infarction, peripheral artery disease, other Surgical history: Reports: angioplasty/stent, cholecystectomy, herniorrhaphy, knee replacement, orthopedic, other, other Psychiatric history: Reports: anxiety, depression, other - Social History Smoking Status: Current every day smoker Smokeless Tobacco Status: No Alcohol use: Reports: none Drug use: Reports: none Course Vital Signs Temperature 97.9 F 04/12/18 13:55 Pulse Rate 105 04/12/18 13:55 Respiratory Rate 20 04/12/18 13:55 Blood Pressure 123/60 04/12/18 13:55 O2 Sat by Pulse Oximetry 83 04/12/18 13:55 Temperature 97.9 F 04/12/18 13:55 Pulse Rate 105 04/12/18 16:30 Respiratory Rate 20 04/12/18 16:30 Blood Pressure 166/98 04/12/18 16:30 O2 Sat by Pulse Oximetry 93 04/12/18 16:30 Oxygen Delivery Oxygen Delivery Nasal Cannula Medical Decision Making - [facility] Narrative Medical decision making narrative: Chest X-Ray 04/12/18 13:54 IMPRESSION: Diffuse, bilateral interstitial and airspace opacities may reflect edema and/or multifocal pneumonia. D/ / 04/12/2018 14:32:51 Bret Doll MD / monse Interpreting Provider: Bret Doll MD 1544 hrs. patient's awake he said he has not drank in ages. He sometimes misses his Keppra so we will give him a dose here he says last dose was yesterday. He has of pneumonia on his chest x-ray we will start him on Levaquin I think the elevated lactate is due to his seizures not due to sepsis. He looks well at this point were going to go and start treatment that we will repeat the lactate get blood cultures on him and then he will be admitted. 1558 hrs.: We will start him on insulin drip due to his blood sugar. He has anymore seizures here. CT under my inspection shows no acute abnormality is waiting official read from radiology. Once his labs are back we will speak with hospitalist and get him admitted. 1630 hrs.: Hospitalist as accepted patient. Asked that we touch base with neurology, spoke with Dr. Simms they will see the patient consult is in. He also requested VBG which was done. Patient stable at this time. Impression is multiple seizures with history of same, DKA acute. - Lab Data Result diagrams: 04/12/18 14:11 04/12/18 14:11 Lab Results 04/12/18 04/12/18 04/12/18 Range/Units 13:49 13:52 14:11 WBC 15.1 H (4.3-11.1) K/mcL RBC 3.98 L (4.19-5.50) M/mcL Hgb 12.2 L (12.9-16.9) g/dL Hct 36.5 L (37.5-50.1) % MCV 91.7 (83.0-100.0) fL MCH 30.7 (28.0-33.3) pg MCHC 33.4 (31.6-35.5) g/dL RDW 14.8 H (11.5-14.5) % Plt Count 266 (140-400) K/mcL MPV 10.1 (9.4-12.4) fL Immature Gran % 0.5 (0-4) % Seg Neutrophils % 93.3 % Lymphocytes % 3.9 % Monocytes % 2.2 % Eosinophils % 0.0 % Basophils % 0.1 % Neutrophils # 14.1 H (1.6-8.9) K/mcL Lymphocytes # 0.6 (0.6-4.6) K/mcL Monocytes # 0.3 (0.0-1.3) K/mcL Eosinophils # 0.0 (0.0-0.6) K/mcL Basophils # 0.0 (0.0-0.2) K/mcL Sodium (136-145) mEq/L Potassium (3.5-5.1) mEq/L Chloride (98-107) mEq/L Carbon Dioxide (23-29) mEq/L BUN (8-23) mg/dL Creatinine (0.70-1.30) mg/dL Est GFR ( Amer) (> 60) Est GFR (Non-Af Amer) (> 60) BUN/Creatinine Ratio (6-26) Glucose (70-105) mg/dL POC Glucose > 600 H* > 600 H* (70-99) mg/dL Calculated Osmolality (280-300) Lactic Acid (0.5-2.2) mmol/L Calcium (8.6-10.3) mg/dL Total Bilirubin (0.3-1.0) mg/dL AST (13-39) Units/L ALT (7-52) Units/L Alkaline Phosphatase (34-104) Units/L Troponin I (< 0.04) ng/mL Serum Total Protein (6.4-8.9) g/dL Albumin (3.5-5.7) g/dL Globulin (2.4-3.5) g/dL Albumin/Globulin Ratio (1.1-2.2) Urine Color (Yellow) Urine Clarity (Clear) Urine pH (5.0-8.0) pH Units Ur Specific [place] (1.010-1.025) Urine Protein (Neg-Trace) mg/dL Urine Glucose (UA) (Normal) mg/dL Urine Ketones (Negative) mg/dL Urine Blood (Negative) Urine Nitrite (Negative) Urine Bilirubin (Negative) Urine Urobilinogen (Normal) mg/dL Ur Leukocyte Esterase (Negative) Urine Microscopic RBC (0-3) per hpf Urine Microscopic WBC (0-3) per hpf Ur Squamous Epith Cells (None-Few) per lpf Urine Bacteria (None-Few) per hpf Hyaline Casts (None-Few) per lpf Ur Culture Indicated? (NO) Ethyl Alcohol (Less than 10) mg/dL 04/12/18 04/12/18 04/12/18 Range/Units 14:11 14:11 14:30 WBC (4.3-11.1) K/mcL RBC (4.19-5.50) M/mcL Hgb (12.9-16.9) g/dL Hct (37.5-50.1) % MCV (83.0-100.0) fL MCH (28.0-33.3) pg MCHC (31.6-35.5) g/dL RDW (11.5-14.5) % Plt Count (140-400) K/mcL MPV (9.4-12.4) fL Immature Gran % (0-4) % Seg Neutrophils % % Lymphocytes % % Monocytes % % Eosinophils % % Basophils % % Neutrophils # (1.6-8.9) K/mcL Lymphocytes # (0.6-4.6) K/mcL Monocytes # (0.0-1.3) K/mcL Eosinophils # (0.0-0.6) K/mcL Basophils # (0.0-0.2) K/mcL Sodium 133 L (136-145) mEq/L Potassium 4.1 (3.5-5.1) mEq/L Chloride 95 L (98-107) mEq/L Carbon Dioxide 16 L (23-29) mEq/L BUN 12 (8-23) mg/dL Creatinine 1.18 (0.70-1.30) mg/dL Est GFR ( Amer) > 60 (> 60) Est GFR (Non-Af Amer) > 60 (> 60) BUN/Creatinine Ratio 10 (6-26) Glucose 1023 H* (70-105) mg/dL POC Glucose (70-99) mg/dL Calculated Osmolality 327 H (280-300) Lactic Acid 5.6 H* (0.5-2.2) mmol/L Calcium 9.3 (8.6-10.3) mg/dL Total Bilirubin 0.6 (0.3-1.0) mg/dL AST 17 (13-39) Units/L ALT 17 (7-52) Units/L Alkaline Phosphatase 204 H (34-104) Units/L Troponin I 0.04 H* (< 0.04) ng/mL Serum Total Protein 7.0 (6.4-8.9) g/dL Albumin 3.7 (3.5-5.7) g/dL Globulin 3.3 (2.4-3.5) g/dL Albumin/Globulin Ratio 1.1 (1.1-2.2) Urine Color Yellow (Yellow) Urine Clarity Clear (Clear) Urine pH 6.0 (5.0-8.0) pH Units Ur Specific [place] > 1.030 H (1.010-1.025) Urine Protein Negative (Neg-Trace) mg/dL Urine Glucose (UA) >=1000 H (Normal) mg/dL Urine Ketones 15 H (Negative) mg/dL Urine Blood Trace H (Negative) Urine Nitrite Negative (Negative) Urine Bilirubin Negative (Negative) Urine Urobilinogen Normal (Normal) mg/dL Ur Leukocyte Esterase Negative (Negative) Urine Microscopic RBC 0-3 (0-3) per hpf Urine Microscopic WBC 0-3 (0-3) per hpf Ur Squamous Epith Cells None Seen (None-Few) per lpf Urine Bacteria None Seen (None-Few) per hpf Hyaline Casts None Seen (None-Few) per lpf Ur Culture Indicated? NO (NO) Ethyl Alcohol < 10 (Less than 10) mg/dL 04/12/18 Range/Units 16:00 WBC (4.3-11.1) K/mcL RBC (4.19-5.50) M/mcL Hgb (12.9-16.9) g/dL Hct (37.5-50.1) % MCV (83.0-100.0) fL MCH (28.0-33.3) pg MCHC (31.6-35.5) g/dL RDW (11.5-14.5) % Plt Count (140-400) K/mcL MPV (9.4-12.4) fL Immature Gran % (0-4) % Seg Neutrophils % % Lymphocytes % % Monocytes % % Eosinophils % % Basophils % % Neutrophils # (1.6-8.9) K/mcL Lymphocytes # (0.6-4.6) K/mcL Monocytes # (0.0-1.3) K/mcL Eosinophils # (0.0-0.6) K/mcL Basophils # (0.0-0.2) K/mcL Sodium (136-145) mEq/L Potassium (3.5-5.1) mEq/L Chloride (98-107) mEq/L Carbon Dioxide (23-29) mEq/L BUN (8-23) mg/dL Creatinine (0.70-1.30) mg/dL Est GFR ( Amer) (> 60) Est GFR (Non-Af Amer) (> 60) BUN/Creatinine Ratio (6-26) Glucose (70-105) mg/dL POC Glucose (70-99) mg/dL Calculated Osmolality (280-300) Lactic Acid 1.2 (0.5-2.2) mmol/L Calcium (8.6-10.3) mg/dL Total Bilirubin (0.3-1.0) mg/dL AST (13-39) Units/L ALT (7-52) Units/L Alkaline Phosphatase (34-104) Units/L Troponin I (< 0.04) ng/mL Serum Total Protein (6.4-8.9) g/dL Albumin (3.5-5.7) g/dL Globulin (2.4-3.5) g/dL Albumin/Globulin Ratio (1.1-2.2) Urine Color (Yellow) Urine Clarity (Clear) Urine pH (5.0-8.0) pH Units Ur Specific [place] (1.010-1.025) Urine Protein (Neg-Trace) mg/dL Urine Glucose (UA) (Normal) mg/dL Urine Ketones (Negative) mg/dL Urine Blood (Negative) Urine Nitrite (Negative) Urine Bilirubin (Negative) Urine Urobilinogen (Normal) mg/dL Ur Leukocyte Esterase (Negative) Urine Microscopic RBC (0-3) per hpf Urine Microscopic WBC (0-3) per hpf Ur Squamous Epith Cells (None-Few) per lpf Urine Bacteria (None-Few) per hpf Hyaline Casts (None-Few) per lpf Ur Culture Indicated? (NO) Ethyl Alcohol (Less than 10) mg/dL Critical Care Time Critical Care Time: Yes Total Critical Care Time: 50 Attestation: Excluding a separately billable procedures. Attestation Statement - Attestation Attestation: This documentation is done with the assistance of Dragon dictation. Despite efforts made to ensure accuracy, there may be inaccuracies in college specialist or spelling and typographical errors. I examined this patient and my medical decision-making was reviewed with the Resident Physician. I agree with the documented findings, disposition and treatment plan as described except to the extent set forth below. Patient seen and evaluated on arrival with EMS and Dr. Lutz and myself, agree with his evaluation management plan, I supervised the care of the patient's stay. He must pick patient up at home's had history of seizures is been off benzodiazepines crushable history of alcoholism. He does have some bruising on his forehead question whether seize had a fall. No family is here to get history from now. He sees multiple times home they gave him Versed needs continued to seize here. We will give him 2 mg Ativan IV. Checked her sugar which is high. When a CT has had do a workup on him and he will need admission.
[2018-04-12 14:47] LABS: Bilirubin,Urine Negative (Negative); Blood,Urine Trace (Negative); Clarity,Urine Clear (Clear); Color,Urine Yellow (Yellow); Glucose,Urine (UA) >=1000 mg/dL (Normal); Ketones,Urine 15 mg/dL (Negative); Leukocyte Esterase,Urine Negative (Negative); Nitrite,Urine Negative (Negative); Protein,Urine Negative (Neg-Trace); Specific Gravity,Urine > 1.030 (1.010-1.025); Urobilinogen,Urine Normal (Normal)
[2018-04-12 14:50] LABS: Bacteria,Urine None Seen per hpf (None-Few); Hyaline Casts,Urine None Seen per lpf (None-Few); RBC,Urine 0-3 per hpf (0-3); Squamous Epithelial Cell,Urine None Seen per lpf (None-Few); WBC,Urine 0-3 per hpf (0-3)
[2018-04-12 15:05] LABS: Ethanol < 10 mg/dL (Less than 10)
[2018-04-12 15:18] LABS: Basophils % 0.1 %; Hematocrit 36.5 % (37.5-50.1); Immature Granulocytes % 0.5 % (0-4); Lymphocytes # 0.6 K/mcL (0.6-4.6); Lymphocytes % 3.9 %; Mean Corpuscular HGB Conc 33.4 g/dL (31.6-35.5); Mean Corpuscular Hemoglobin 30.7 pg (28.0-33.3); Mean Corpuscular Volume 91.7 fL (83.0-100.0); Mean Platelet Volume 10.1 fL (9.4-12.4); Monocytes # 0.3 K/mcL (0.0-1.3); Monocytes % 2.2 %; Neutrophils # 14.1 K/mcL (1.6-8.9); Platelet Count 266 K/mcL (140-400); Red Blood Count 3.98 M/mcL (4.19-5.50); Red Cell Distribution Width 14.8 % (11.5-14.5); Segmented Neutrophils % 93.3 %
[2018-04-12 15:22] LABS: Hemoglobin 12.2 g/dL (12.9-16.9)
[2018-04-12] MEDS ORDERED: Levofloxacin 750 MG/150 ML 750 MG/150 ML BAG IVPB ONE (15:26)
[2018-04-12] MEDS ORDERED: *HR* Dextrose 50 % in Water (Syg) 50 ML SYRINGE IVP PRN ×4 (15:53→23:38)
[2018-04-12 15:58] LABS: Alanine Aminotransferase 17 Units/L (7-52); Albumin 3.7 g/dL (3.5-5.7); Albumin/Globulin Ratio 1.1 (1.1-2.2); Alkaline Phosphatase 204 Units/L (34-104); Aspartate Amino Transferase 17 Units/L (13-39); BUN/Creatinine Ratio 10 (6-26); Bilirubin,Total 0.6 mg/dL (0.3-1.0); Blood Urea Nitrogen 12 mg/dL (8-23); Calcium 9.3 mg/dL (8.6-10.3); Carbon Dioxide 16 mEq/L (23-29); Chloride 95 mEq/L (98-107); Globulin 3.3 g/dL (2.4-3.5); Glucose 1023 mg/dL (70-105); Osmolality,Calculated 327 (280-300); Potassium 4.1 mEq/L (3.5-5.1); Sodium 133 mEq/L (136-145); Troponin I 0.04 ng/mL (< 0.04); eGFR For Non-African Americans > 60 (> 60)
[2018-04-12] MEDS ORDERED: Aspirin 81 MG TAB.CHEW PO STA (16:00)
[2018-04-12] MEDS ORDERED: Insulin Human Regular 100 UNIT in 0.9 % Sodium Chloride 100 ML IVC SCH ×2 (16:00→17:00)
[2018-04-12] MEDS ORDERED: Naloxone 0.4 MG/ML INJ IVP PRN (16:56)
[2018-04-12] MEDS ORDERED: Insulin Regular, Human 100 UNIT/ML IV PRN (16:59)
[2018-04-12] MEDS ORDERED: 0.9 % Sodium Chloride w KCl 20 MEQ/1,000 ML MLS IVC SCH (17:00)
[2018-04-12 17:03] LABS: VBG HCO3 20 mEq/L (21-27); VBG PCO2 29 mmHg (41-51); VBG PH 7.43 pH Units (7.32-7.42); VBG PO2 221 mmHg (25-50)
--- NOTE | 2018-04-12 17:50 | Internal Med History&Physical ---
Date of Encounter: 04/12/18 Time of Encounter: 17:00 Internal Medicine - H&P: HPI Chief complaint: Active seizures and elevated blood sugar History of present illness: Mr. Craig is a 62 year old male with pmh of diabetes, seizures , chronic diastolic CHF, noncompliance with medications presenting today s/p being found actively seizing and having elevated blood sugars. Patient admits to being non compliant with his medications and says he has missed multiple doses of his insulin and his keppra in the last couple of days. He says he wa swathcing TV at home and that's the last thing he remembers before here. His granddaughter reportedly found him actively having a seizure and called EMS. He denies any acute complaints prior to coming to the hospital such as chest pain, shortness or breath, nausea, vomiting , fevers or chills. He denies any tongue biting or u rinary incontinence. He has some bruises aorund his forehead from when he fell while seizing. In the ER, his blood sugar was noted to be elevated at 1000 and he had an elevated anion gap. he was given multiple doses of versed, ativan and one dose of 500mg IV keppra with resolution of his sezures in the ER and he is being admitted for further management Past Med Surg Social Fam HX - Past Medical History Medical history: arthritis, asthma, cardiomyopathy, CHF, COPD, coronary artery disease, CVA, diabetes, GERD, hyperlipidemia, hypertension, myocardial infarction, peripheral artery disease, other Additional medical history: brain aneurysms x3 Psychiatric history: anxiety, depression, other - Past Surgical History Surgical History: angioplasty/stent, cholecystectomy, herniorrhaphy, knee replacement, orthopedic, other, other Additional surgical history: 4 cardiac stents. B/L knee surgeries - Social History Smoking Status: Current every day smoker Smokeless Tobacco Status: No Alcohol use: none Drug use: none - Family History Mother Family Member Ethnicity: Non- Living Status: Hx Family Cardiac Disorders: Yes (GA) Hx Family Respiratory Disorders: Yes (COPD) Hx Family Cancer: Yes (Lung) Hx Family GI Disorders: No Hx Family Endocrine Disorder: Yes (DM) Hx Family Neuromuscular Disorders: No Hx Family Neurologic Disorders: No Hx Family HEENT Disorders: No Hx Family Autoimmune Disorders: No Father Family Member Ethnicity: Non- Living Status: Hx Family Cardiac Disorders: No Hx Family Respiratory Disorders: No Hx Family Cancer: Yes (Colon) Hx Family GI Disorders: No Hx Family Endocrine Disorder: No Hx Family Neuromuscular Disorders: No Hx Family Neurologic Disorders: No Hx Family HEENT Disorders: No Hx Family Autoimmune Disorders: No - Additional Family History Additional family history: Family history reviewed and non contributory Internal Medicine - H&P: Meds Citalopram [CeleXA] 40 mg PO DAILY 10/12/15 [History] Zolpidem [Ambien] 10 mg PO HS PRN 11/15/15 [History] Albuterol Sulfate [Albuterol Inhaler] 2 puff IH Q4H PRN 03/18/16 [History] Aspirin 81 mg PO DAILY 03/18/16 [History] Atorvastatin Calcium [Lipitor] 40 mg PO HS 03/18/16 [History] Budesonide/Formoterol 160/4.5 [Symbicort 160/4.5] 2 puff IH BIDR 03/18/16 [History] Clopidogrel [Plavix] 75 mg PO DAILY 03/18/16 [History] Nitroglycerin [Nitrostat] 0.4 mg SL Q5M PRN 03/18/16 [History] Gabapentin [Neurontin] 800 mg PO TID 11/25/16 [History] Ibuprofen 800 mg PO QID PRN #20 tablet 02/19/17 [Rx] ALPRAZolam [Xanax 1 MG Tablet] 1 mg PO BID 09/04/17 [History] Lisinopril-HCTZ 20-12.5 [Prinzide 20-12.5] 1 tab PO BID 09/04/17 [History] Meloxicam [Mobic] 15 mg PO DAILY 09/04/17 [History] Metformin HCl [Metformin ER Gastric] 1,000 mg PO BID 09/04/17 [History] Metoprolol Succinate [Toprol Xl] 100 mg PO DAILY 09/04/17 [History] Oxycodone HCl 15 mg PO Q4H PRN 09/04/17 [History] levETIRAcetam [Keppra] 500 mg PO Q12HR #120 tablet 11/09/17 [Rx] Azithromycin 250 mg PO DAILY #4 tablet 12/29/17 [Rx] Cefdinir [Omnicef] 300 mg PO BID #14 capsule 12/29/17 [Rx] Insulin Degludec [Tresiba Flextouch U-200] 34 units SQ DAILY 12/29/17 [History] Allergy/AdvReac Type Severity Reaction Status Date / Time codeine AdvReac Vomiting Verified 04/12/18 14:08 All Systems PM: A 10-system review of systems was performed and is negative for pertinent findings except as documented above in the HPI. - Constitutional Constitutional: no chills, no fever(s), no night sweats - EENT Eyes: no change in vision, no discharge, no pain, no photophobia Ears: no ear discharge, no ear pain, no tinnitus Nose, mouth and throat: no dysphagia, no nasal discharge, no neck pain, no sore throat - Cardiovascular Cardiovascular ROS IM: no chest pain, no diaphoresis, no dyspnea, no lightheadedness, no palpitations, no syncope - Respiratory Respiratory: no cough, no dyspnea, no wheezing, no excessive phlegm production - Gastrointestinal Gastrointestinal: no abdominal pain, no diarrhea, no hematemesis, no hematochezia, no melena, no nausea, no vomiting - Musculoskeletal Musculoskeletal ROS IM: no numbness, no tingling - Integumentary Integumentary IM: no rash, no unusual bruising - Neurological Neurological ROS: convulsions, no confusion, no focal weakness, no numbness, no tingling, no tremor(s) - Hematologic/Lymphatic Hematologic/Lymphatic: no easy bruising - Constitutional Vitals: Temp Pulse Resp BP Pulse Ox 97.9 F 109 20 158/90 92 04/12/18 13:55 04/12/18 17:30 04/12/18 17:30 04/12/18 17:30 04/12/18 17:30 Exam: NAD. Lethargic - Head Head exam: Present: atraumatic, normocephalic - Eye Eye exam: Present: PERRL, conjuntiva pink, sclera anicteric Pupils: Present: PERRL - Neck Neck exam general surgery: Present: supple, trachea midline. Absent: lymphadenopathy - Respiratory Respiratory exam: Present: CTAB. Absent: accessory muscle use, rales, rhonchi, wheezes - Cardiovascular Cardiovascular exam: Present: RRR, +S1, +S2. Absent: diastolic murmur, gallop, rubs, systolic murmur - GI/Abdominal GI/Abdominal exam: Present: normal bowel sounds, soft, no peritoneal signs. Absent: distended, tenderness - Extremities Exam Extremities exam: Present: warm, radial pulses palpable and symmetrical. Absent: calf tenderness, cyanotic, pedal edema - Neurological Exam Neurological exam: Present: CN II-XII intact, oriented X3, no focal deficits. Absent: pronater drift, facial droop, speech deficit - Skin Skin exam: Present: dry, intact Internal Med - H&P Results - Labs CBC & Chem 7: 04/12/18 14:11 04/12/18 14:11 Labs: Short CBC 04/12/18 Range/Units 14:11 WBC 15.1 H (4.3-11.1) K/mcL Hgb 12.2 L (12.9-16.9) g/dL Hct 36.5 L (37.5-50.1) % Plt Count 266 (140-400) K/mcL Neutrophils # 14.1 H (1.6-8.9) K/mcL BMP 04/12/18 14:11 Sodium 133 L Potassium 4.1 Chloride 95 L Carbon Dioxide 16 L BUN 12 Creatinine 1.18 Glucose 1023 H* Calcium 9.3 Cardiac Enzymes 04/12/18 Range/Units 14:11 Troponin I 0.04 H* (< 0.04) ng/mL Liver Function 04/12/18 Range/Units 14:11 Total Bilirubin 0.6 (0.3-1.0) mg/dL AST 17 (13-39) Units/L ALT 17 (7-52) Units/L Alkaline Phosphatase 204 H (34-104) Units/L Albumin 3.7 (3.5-5.7) g/dL Urine 04/12/18 Range/Units 14:30 Urine Color Yellow (Yellow) Urine Clarity Clear (Clear) Urine pH 6.0 (5.0-8.0) pH Units Ur Specific [place] > 1.030 H (1.010-1.025) Urine Protein Negative (Neg-Trace) mg/dL Urine Glucose (UA) >=1000 H (Normal) mg/dL - ABG Interpretation ABG results: 04/12/18 17:01 VBG pH 7.43 H VBG pCO2 29 L VBG pO2 221 H VBG HCO3 20 L - Impressions ITS Impressions Cervical Spine CT 04/12/18 13:54 IMPRESSION: No acute abnormality of the cervical spine. D/ / 04/12/2018 16:26:17 Joel Garcia MD / earnold Interpreting Provider: Joel Garcia MD Chest X-Ray 04/12/18 13:54 IMPRESSION: Diffuse, bilateral interstitial and airspace opacities may reflect edema and/or multifocal pneumonia. D/ / 04/12/2018 14:32:51 Bret Doll MD / monse Interpreting Provider: Bret Doll MD Head CT 04/12/18 13:54 IMPRESSION: No acute intracranial abnormality. D/ / 04/12/2018 16:06:13 Corina Dacosta MD / gina Interpreting Provider: Corina Dacosta MD - Assessment and plan (1) Acute metabolic encephalopathy Current Visit: Yes Status: Acute Assessment and plan: Acute metabolic encephalopthy likely secondary to seizures, HHS and pneumonia On insulin, keppra and IV antibiotics (2) Community acquired bacterial pneumonia Current Visit: Yes Status: Acute Assessment and plan: CXR shows multifocal pneumonia. Started on levaquin in ER Continue on ceftriaxone and azithromycin. Follow blood cultures, urine legionella and streptococcal antigen (3) Diabetic ketoacidosis Current Visit: Yes Status: Acute Assessment and plan: Patient came in with admitted non compliance to insulin with elevated blood sugar of 1000, elevated osmolality of 327 and anion gap of 23 Start on insulin drip with DKA/HHS protocol. Transition to sc insulin once gap is closed Qualifiers: Qualified Code(s): E13.10 - Other specified diabetes mellitus with ketoacidosis without coma (4) Seizure Current Visit: Yes Status: Acute Assessment and plan: Pt came in with active seizures. load with 1000mg IV keppra and continue keppra 500mg IV BID Neurology consulted and recs appreciated (5) HHNC (hyperglycemic hyperosmolar nonketotic coma) Current Visit: Yes Status: Acute Assessment and plan: Patient came in with admitted non compliance to insulin with elevated blood sugar of 1000, elevated osmolality of 327 and anion gap of 23 Start on insulin drip with DKA/HHS protocol. Transition to sc insulin once gap is closed (6) Coronary artery disease Current Visit: Yes Status: Acute Assessment and plan: Continue aspirin and plavix Qualifiers: Qualified Code(s): I25.10 - Atherosclerotic heart disease of [place] coronary artery without angina pectoris (7) DVT prophylaxis Current Visit: Yes Status: Acute Assessment and plan: Heparin sc - Time Spent With Patient Total time spent is greater than 50% in coordination of care (as documented) at patient's floor/unit and/or counseling patient:
[2018-04-12] MEDS ORDERED: *HR* OxyCODONE/APAP 5/325 TABLET PO PRN (17:51)
[2018-04-12] MEDS: Thiamine (B-1) 100 MG, Folic Acid 1 MG, MVI, adult with vitamin K 10 ML in 0.9 % Sodi... IVPB SCH (18:28)
[2018-04-12] MEDS ORDERED: D5% in 0.45% NACL w KCl 20 MEQ/1,000 ML MLS IVC PRN (20:52)
[2018-04-12] MEDS ORDERED: D5% in 0.45% NACL 1,000 ML IVC PRN (20:52)
[2018-04-12] MEDS ORDERED: 0.9 % Sodium Chloride 1,000 ML IVC SCH (21:00)
[2018-04-12] MEDS: Gabapentin 400 MG CAPSULE PO SCH (21:15)
[2018-04-12] MEDS: ALPRAZolam 1 MG TABLET PO SCH (21:15)
[2018-04-12 21:39] LABS: BUN/Creatinine Ratio 12 (6-26); Blood Urea Nitrogen 14 mg/dL (8-23); Calcium 9.2 mg/dL (8.6-10.3); Carbon Dioxide 21 mEq/L (23-29); Chloride 105 mEq/L (98-107); Glucose 392 mg/dL (70-105); Osmolality,Calculated 309 (280-300); Potassium 3.4 mEq/L (3.5-5.1); Sodium 141 mEq/L (136-145); eGFR For Non-African Americans > 60 (> 60)
[2018-04-12] MEDS: Budesonide/Formoterol 160/4.5 1 PUFF INH IH SCH (22:19)
[2018-04-12 23:26] LABS: BUN/Creatinine Ratio 11 (6-26); Blood Urea Nitrogen 14 mg/dL (8-23); Carbon Dioxide 22 mEq/L (23-29); Chloride 110 mEq/L (98-107); Glucose 195 mg/dL (70-105); Osmolality,Calculated 304 (280-300); Potassium 3.7 mEq/L (3.5-5.1); Sodium 144 mEq/L (136-145); eGFR For Non-African Americans 57 (> 60)
[2018-04-12] MEDS ORDERED: Dextrose 4 GM Chewable Tablets PO PRN ×2 (23:38)
[2018-04-12] MEDS ORDERED: D5% in Water 1,000 ML IVC PRN (23:38)
[2018-04-12] MEDS ORDERED: Dextrose Gel 15 GM/37.5 ML TUBE PO PRN ×2 (23:38)
[2018-04-12] MEDS ORDERED: Insulin DETEMIR 100 UNIT/ML X5UNITS SQ SCH (23:45)
[2018-04-12] MEDS ORDERED: *HR* LORazepam 2 MG/ML VIAL IVP PRN ×2 (23:48)
[2018-04-13] MEDS ORDERED: Piperacillin/Tazobactam 3.375 GM in 0.9 % Sodium Chloride Mini Bag 100 ML IVPB SCH
[2018-04-13] MEDS: *HR* OxyCODONE/APAP 10/325 TABLET PO PRN ×2 (00:06→04:16)
[2018-04-13 01:14] LABS: BUN/Creatinine Ratio 11 (6-26); Blood Urea Nitrogen 15 mg/dL (8-23); Calcium 8.9 mg/dL (8.6-10.3); Carbon Dioxide 22 mEq/L (23-29); Chloride 110 mEq/L (98-107); Glucose 140 mg/dL (70-105); Osmolality,Calculated 301 (280-300); Potassium 3.7 mEq/L (3.5-5.1); Sodium 144 mEq/L (136-145); eGFR For Non-African Americans 54 (> 60)
[2018-04-13] MEDS: *HR* LORazepam 2 MG/ML VIAL IVP PRN ×3 (03:31→20:39)
[2018-04-13 03:37] LABS: Basophils % 0.2 %; Eosinophils % 0.1 %; Hematocrit 32.8 % (37.5-50.1); Hemoglobin 11.2 g/dL (12.9-16.9); Immature Granulocytes % 0.6 % (0-4); Lymphocytes # 2.4 K/mcL (0.6-4.6); Lymphocytes % 13.6 %; Mean Corpuscular HGB Conc 34.1 g/dL (31.6-35.5); Mean Corpuscular Volume 90.9 fL (83.0-100.0); Mean Platelet Volume 9.2 fL (9.4-12.4); Monocytes # 0.8 K/mcL (0.0-1.3); Monocytes % 4.5 %; Neutrophils # 14.3 K/mcL (1.6-8.9); Platelet Count 267 K/mcL (140-400); Red Blood Count 3.61 M/mcL (4.19-5.50); Red Cell Distribution Width 14.8 % (11.5-14.5)
[2018-04-13 04:01] LABS: Magnesium 2.2 mg/dL (1.6-2.6); Phosphorous 3.9 mg/dL (2.7-4.5); Potassium 3.9 mEq/L (3.5-5.1)
[2018-04-13 04:02] LABS: Troponin I 0.17 ng/mL (< 0.04)
[2018-04-13] MEDS ORDERED: *HR* Heparin 5,000 UNIT/ML VIAL IVP PRN ×2 (04:20)
[2018-04-13] MEDS ORDERED: *HR* Heparin 5,000 UNIT/ML VIAL IVP ONE (04:20)
--- NOTE | 2018-04-13 04:24 | Event Note ---
Addendum entered and electronically signed by Mc Thomas DO 04/13/18 04:58: Correction: After discussion with my attending, Dr. Eckert, it was felt that since patient did not have active chest pain with no ECG changes, that we would hold off on administration of heparin, echocardiogram, and consult to cardiology at this time unless troponin trended upward. There are other explanations for the patient's elevated troponin as patient has had seizure today with concern for new EL as well in the setting of pneumonia as urine legionella was positive. -will repeat troponin Original Note: <Mc Thomas - Last Filed: 04/13/18 04:36> Date of Encounter: 04/13/18 Time of Encounter: 04:22 Patient has elevated troponin of 0.17 on repeat. Initial was within normal limits. Patient has known history of CAD, Type II DM, smoking. Patient does not report any chest pain today, but he may have had an event during his seizure. No sichemic changes on ECG. He has received 325 asa today. Reports intermittent hematuria. Hb is currently 11.2. Will start heparin via low dose ACS protocol f or time being as benefits outweigh the risks of not starting it in the setting of possible ACS. Patient chest pain free at this time and not in any acute distress. - start low dose heparin via ACS protocol - echocardiogram - watch closely for signs of bleeding - Consult to cardiology <oJse Eckert - Last Filed: 04/13/18 06:08> Date of Encounter: 04/13/18 Troponin level should be trended and echocardiogram obtained. Current clinical and electrocardiographic picture is non-ischemic. If it trends upwards or is seen to have wall motion abnormalities on echo, cardiology input should be sought. In the interim the patient remains stable. YENI HAYWARD.
[2018-04-13] MEDS ORDERED: Heparin 25,000 UNIT/500 ML D5W 25,000 UNIT/500 ML BAG IVC SCH (04:30)
--- NOTE | 2018-04-13 06:25 | Electrocardiograph Report ---
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
[2018-04-13] MEDS: ALPRAZolam 1 MG TABLET PO SCH ×2 (07:35→20:40)
[2018-04-13] MEDS: Aspirin 81 MG TAB.CHEW PO SCH (07:35)
[2018-04-13] MEDS: Metoprolol XL (24 HR) Succ 50 MG TAB.ER.24H PO SCH (07:35)
[2018-04-13] MEDS: Gabapentin 400 MG CAPSULE PO SCH ×3 (07:35→20:37)
[2018-04-13] MEDS: Azithromycin 500 MG in D5% in Water 250 ML IVPB SCH (07:36)
[2018-04-13] MEDS ORDERED: Lisinopril-HCTZ 20-12.5mg TABLET PO SCH (08:00)
[2018-04-13] MEDS: Insulin LISPRO 300 UNITS/3 ML VIAL SQ SCH ×3 (08:06→17:37)
[2018-04-13] MEDS ORDERED: cefTRIAXone 1,000 MG in Water for inj. (sterile) 20 ML 10 ML IVP SCH (09:00)
--- NOTE | 2018-04-13 09:27 | Neurology - Consult Note ---
Addendum entered and electronically signed by Xochitl Simms MD 04/13/18 18:06: I did a face to face evaluation with the patient in the presence of nurse practitioner Arvin Graff and I agree with his history taking, physical examination, assessment and plan. This is a 62-year-old man with known history of seizure disorder and history of medication noncompliance who developed recurrent seizures likely secondary to noncompliance to his seizure medication as well as ongoing medical conditions 1 Continue Keppra 750mg IV q12 or orally. Will obtain EEG in AM. 2. If mental status not improving then would consider MRI of brain without contrast 3. Please continue medical and supportive care. Original Note: Date of Encounter: 04/13/18 Time of Encounter: 09:10 Assessment and Plan (1) Seizures Current Visit: Yes Status: Acute A&P Head CT is negative for intracranial abnormality At this time pt has hx of medication noncompliance which is likely the etiology of his seizure episodes Pt has been placed on 750 BID of Keppra and will be transitioned to PO when stable. Will order EEG It is possible [place] is in the differential with s/sx of lack of areflexia and LE weakness, however pt is quite somnolent at the time. Will reevaluate in 24 hrs once pt is stabilized on his Keppra regimen if there is a need for further investigation History of Present Illness Chief complaint: seizures HPI: Mr. Craig is a 62 y/o male with PMHx of DM, CHF, seizures, and noncompliance of medications presents to ED with possible seizure and elevated blood glucose. He states that his granddaughter found him yesterday morning on the ground likely following an unwitnessed seizure. Pt does not recall the seizure but remembers the room spinning and falling towards the ground. He woke up with urinary loss as well as some bruising of his head. He denies any tongue biting or confusion following the episode. Pt had one additional seizure in the ED which he does not recall but states he has not been told he has had any further episodes since then. Pt was dx with seizures one year ago and follows with Dr. Ramos. Typically pt states that his seizures are associated with loss of consciousness, mild confusion following the episode, and B/L UE shaking. He is on a anti-seizure regimen of Keppra for which he tends to be noncompliant on occasion. He states he has not taken his medication in 3-4 days because he "did not feel like it". Today pt admits that he has had some gait instability recently. Pt does report having flu-like sx of headache, chills, and muscle aches last week but denies fever. He also denies diaphoresis or cough. Past Med Surg Social Fam HX - Past Medical History Medical history: arthritis, asthma, cardiomyopathy, CHF, COPD, coronary artery disease, CVA, diabetes, GERD, hyperlipidemia, hypertension, myocardial infarction, peripheral artery disease, other Additional medical history: brain aneurysms x3 Psychiatric history: anxiety, depression, other - Past Surgical History Surgical History: angioplasty/stent, cholecystectomy, herniorrhaphy, knee replacement, orthopedic, other, other Additional surgical history: 4 cardiac stents. B/L knee surgeries - Social History Smoking Status: Current every day smoker Smokeless Tobacco Status: No Alcohol use: none Drug use: none - Family History Mother Family Member Ethnicity: Non- Living Status: Hx Family Cardiac Disorders: Yes Hx Family Respiratory Disorders: Yes Hx Family Cancer: Yes Hx Family GI Disorders: No Hx Family Endocrine Disorder: Yes Hx Family Neuromuscular Disorders: No Hx Family Neurologic Disorders: No Hx Family HEENT Disorders: No Hx Family Autoimmune Disorders: No Father Family Member Ethnicity: Non- Living Status: Hx Family Cardiac Disorders: No Hx Family Respiratory Disorders: No Hx Family Cancer: Yes Hx Family GI Disorders: No Hx Family Endocrine Disorder: No Hx Family Neuromuscular Disorders: No Hx Family Neurologic Disorders: No Hx Family HEENT Disorders: No Hx Family Autoimmune Disorders: No Medications and Allergies Unable To Obtain [Unable to Obtain] 04/12/18 [History] Allergy/AdvReac Type Severity Reaction Status Date / Time codeine AdvReac Vomiting Verified 04/12/18 14:08 All Systems: The remainder of the systems were reviewed and are negative Review of Systems: REVIEW OF SYSTEMS GENERAL: + flu like s/sx 1-week ago with arthralgia, myalgia, and chills NEUROLOGIC: Negative for any visual changes, facial asymmetry, dysphagia, dysarthria, hemiparesis, hemisensory deficits, vertigo, ataxia, seizures, tongue bite + seizures, convulsive activity, confusion, lethargic HEENT: negative neck stiffness,. + head trauma, neck trauma, CARDIAC: Negative for any chest pain, dyspnea, peripheral edema. GASTROINTESTINAL: Negative for any abdominal pain, nausea, vomiting GENITOURINARY: Negative for any dysuria, hematuria +urinary incontinence ENDOCRINE: Thyroid trouble, heat/cold intolerance, excessive sweating, thirst, hunger MUSCULOSKELETAL: + arthalgia, myalgia Physical Examination - Vital Signs Vital Signs: Initial Vital Signs Temp Pulse Resp BP Pulse Ox 97.9 F 105 20 123/60 83 04/12/18 13:55 04/12/18 13:55 04/12/18 13:55 04/12/18 13:55 04/12/18 13:55 - Exam Exam: Examination: General Examination: *CONSTITUTIONAL: lethargic, no acute distress, responds to verbal stimuli *GENERAL APPEARANCE OF PATIENT fatigued, generally ill appearing male *EYES: pupils equal, round, reactive to light and accommodation, conjunctiva clear without masses or ulcerations, fundi normal. Musculoskeletal: *GAIT AND STATION normal, with normal Romberg testing, no abnormalities such as broad base gait or spasticity *ASSESSMENT OF MUSCLE STRENGTH IN THE UPPER AND LOWER EXTREMITIES bilatera l deltoid, bicep, tricep, credit union manager strength, hip flexors ,anterior tibialis, dorsoflexion of the foot 5/5 *MUSCLE TONE IN THE UPPER AND LOWER EXTREMITIES normal. ataxia with exam of finger to nose and heel/quiroga, no fasciculations or atrophy identified. Neurological: *ORIENTATION to time, person, situation and place *RECURRENT AND REMOTE MEMORY remote memory intact, difficulty with short term memory; difficulty with recalling events leading up to admission *ATTENTION AND CONCENTRATION are altered. Easily fatigued, needs reinforcement and redirection but does follow commands *LANGUAGE FUNCTION no significant aphasia or dysarthia was noted. *FUND OF KNOWLEDGE aware of current events, past history, vocabulary *MENTAL attention span and concentration altered d/t fatigue s/p seizures. *CN II optic fundi were normal, no papilledema noted. *CN III,IV, PERRLA extraocular eye movements were full, no nystagmus and no ptosis noted. *CN V shows normal sensation and jaw opens symmetrically. *CN VII shows normal facial movement symmetrically, upper and lower bilaterally. *CN VIII shows no significant hearing loss on exam *CN IX,,X palate elevated symmetrically *CN XI normal strength in the sternocleidomastoid muscles, symmetrical shoulder shrugging. *CN XII tongue protruded in the midline, with normal strength and movement. *SENSORY EXAMINATION light touch intact *REFLEXES: Diffusely areflexic, no pathological reflexes identified *CEREBELLAR TESTING ataxia with heel to quiroga exam and finger to nose, *PAIN LEVEL 0/10 Results - Laboratory Findings CBC and BMP: 04/13/18 03:15 04/13/18 03:15 Abnormal lab findings: Abnormal lab results WBC 17.7 K/mcL (4.3-11.1) H 04/13/18 03:15 RBC 3.61 M/mcL (4.19-5.50) L 04/13/18 03:15 Hgb 11.2 g/dL (12.9-16.9) L 04/13/18 03:15 Hct 32.8 % (37.5-50.1) L 04/13/18 03:15 RDW 14.8 % (11.5-14.5) H 04/13/18 03:15 MPV 9.2 fL (9.4-12.4) L 04/13/18 03:15 Neutrophils # 14.3 K/mcL (1.6-8.9) H 04/13/18 03:15 VBG pH 7.43 pH Units (7.32-7.42) H 04/12/18 17:01 VBG pCO2 29 mmHg (41-51) L 04/12/18 17:01 VBG pO2 221 mmHg (25-50) H 04/12/18 17:01 VBG HCO3 20 mEq/L (21-27) L 04/12/18 17:01 Carbon Dioxide 21 mEq/L (23-29) L 04/13/18 03:15 Creatinine 1.53 mg/dL (0.70-1.30) H 04/13/18 03:15 Est GFR ( Amer) 56 (> 60) L 04/13/18 03:15 Est GFR (Non-Af Amer) 46 (> 60) L 04/13/18 03:15 Glucose 162 mg/dL (70-105) H 04/13/18 03:15 POC Glucose > 600 mg/dL (70-99) H* 04/12/18 19:48 Alkaline Phosphatase 204 Units/L (34-104) H 02/18/19 14:11 Troponin I 0.17 ng/mL (< 0.04) H* 04/13/18 03:15 Ur Specific [place] > 1.030 (1.010-1.025) H 04/12/18 14:30 Urine Glucose (UA) >=1000 mg/dL (Normal) H 04/12/18 14:30 Urine Ketones 15 mg/dL (Negative) H 04/12/18 14:30 Urine Blood Trace (Negative) H 04/12/18 14:30 Consult Discharge Plan - Plan Referrals: Cyrus Coyne DO [Primary Care Provider] -
--- NOTE | 2018-04-13 10:05 | Internal Med Progress Note ---
Hospitalist Progress Note - Encounter Date of Encounter: 04/13/18 Time of Encounter: 16:00 - Subjective Interval History: 62 year old male with pmh of diabetes, seizures , chronic diastolic CHF, noncompliance with medications presenting today s/p being found actively seizing and having elevated blood sugars. Patient admits to being non compliant with h is medications and says he has missed multiple doses of his insulin and his keppra in the last couple of days. He says he wa swathcing TV at home and that's the last thing he remembers before here. His granddaughter reportedly found him actively having a seizure and called EMS. - Exam Vitals: Temp Pulse Resp BP Pulse Ox 97.7 F 94 17 142/81 91 04/13/18 07:47 04/13/18 07:47 04/13/18 07:47 04/13/18 07:47 04/13/18 07:47 Exam: Gen - lethargic HEENT - NCAT, PERRLA, EOMI, hearing grossly intact, oropharynx benign CV - RRR, normal S1 and S2, no M/R/G, no BLE edema Resp - Normal WOB, CTAB, no W/R/R GI - Soft, NT/ND, no masses, normal bowel sounds, Skin - Warm, dry, no rashes/lesions/ulcers Psych - Normal mood and affect, no depression or anxiety - Assessment and Plan (1) Acute respiratory failure with hypoxia Current Visit: Yes Status: Acute Assessment and Plan: Pt does not wear oxygen at home and has been requiring up to 6L NC to keep his sats abve 90 here. Etiology likley secondary to multifocal pneumonia from legionella vs aspiration CT chest shows ARDS picture. Pulmonary consulted and appreciate recs Broaden antibiotic coverage to zosyn and azthromycin for legionella (2) Acute metabolic encephalopathy Current Visit: Yes Status: Acute Assessment and Plan: Acute metabolic encephalopthy likely secondary to seizures, HHS and pneumonia On insulin, keppra and IV antibiotics (3) Community acquired bacterial pneumonia Current Visit: Yes Status: Acute Assessment and Plan: CXR shows multifocal pneumonia. Started on levaquin in ER Urine legionella antigen positive. Continue zosyn and azithromycin (4) Diabetic ketoacidosis Current Visit: Yes Status: Acute Assessment and Plan: Patient came in with admitted non compliance to insulin with elevated blood sugar of 1000, elevated osmolality of 327 and anion gap of 23 Start on insulin drip with DKA/HHS protocol. Transition to sc insulin once gap is closed (5) Seizure Current Visit: Yes Status: Acute Assessment and Plan: Pt came in with active seizures. load with 1000mg IV keppra and continue keppra 500mg IV BID Neurology consulted and recs appreciated (6) Acute kidney injury Current Visit: Yes Status: Acute Assessment and Plan: Will give IV fluids and monitor creatinine. Obtain CPK to r/o rhabdomyolysis (7) HHNC (hyperglycemic hyperosmolar nonketotic coma) Current Visit: Yes Status: Acute Assessment and Plan: Patient came in with admitted non compliance to insulin with elevated blood sugar of 1000, elevated osmolality of 327 and anion gap of 23 Start on insulin drip with DKA/HHS protocol. Transition to sc insulin once gap is closed (8) Coronary artery disease Current Visit: Yes Status: Acute Assessment and Plan: Continue aspirin and plavix. Troponins mildly elevated possibly secondary to demand ischemia. Obtain 2d echo to assess cardiac function (9) DVT prophylaxis Current Visit: Yes Status: Acute Assessment and Plan: Heparin sc - Time Spent with Patient Total time spent is greater than 50% in coordination of care (as documented) at patient's floor/unit and/or counseling patient: Internal Medicine: Result - Labs CBC & Chem 7: 04/13/18 03:15 04/13/18 03:15 Labs: Short CBC 04/12/18 04/13/18 Range/Units 14:11 03:15 WBC 15.1 H 17.7 H (4.3-11.1) K/mcL Hgb 12.2 L 11.2 L (12.9-16.9) g/dL Hct 36.5 L 32.8 L (37.5-50.1) % Plt Count 266 267 (140-400) K/mcL Neutrophils # 14.1 H 14.3 H (1.6-8.9) K/mcL BMP 04/12/18 04/12/18 04/12/18 14:11 17:41 19:53 Sodium 133 L Potassium 4.1 Chloride 95 L Carbon Dioxide 16 L BUN 12 Creatinine 1.18 Glucose 1023 H* 829 H* 572 H* Calcium 9.3 04/12/18 04/12/18 04/13/18 21:01 22:57 00:44 Sodium 141 144 144 Potassium 3.4 L 3.7 3.7 Chloride 105 110 H 110 H Carbon Dioxide 21 L 22 L 22 L BUN 14 14 15 Creatinine 1.17 1.27 1.33 H Glucose 392 H 195 H 140 H Calcium 9.2 9.0 8.9 04/13/18 03:15 Sodium 140 Potassium 3.9 Chloride 107 Carbon Dioxide 21 L BUN 17 Creatinine 1.53 H Glucose 162 H Calcium 9.0 Cardiac Enzymes 04/12/18 04/12/18 04/13/18 Range/Units 14:11 21:01 03:15 Troponin I 0.04 H* < 0.03 0.17 H* (< 0.04) ng/mL Liver Function 04/12/18 Range/Units 14:11 Total Bilirubin 0.6 (0.3-1.0) mg/dL AST 17 (13-39) Units/L ALT 17 (7-52) Units/L Alkaline Phosphatase 204 H (34-104) Units/L Albumin 3.7 (3.5-5.7) g/dL Urine 04/12/18 Range/Units 14:30 Urine Color Yellow (Yellow) Urine Clarity Clear (Clear) Urine pH 6.0 (5.0-8.0) pH Units Ur Specific [place] > 1.030 H (1.010-1.025) Urine Protein Negative (Neg-Trace) mg/dL Urine Glucose (UA) >=1000 H (Normal) mg/dL - Impressions Impressions Cervical Spine CT 04/12/18 13:54 IMPRESSION: No acute abnormality of the cervical spine. D/ / 04/12/2018 16:26:17 Joel Garcia MD / earnold Interpreting Provider: Joel Garcia MD Chest X-Ray 04/12/18 13:54 IMPRESSION: Diffuse, bilateral interstitial and airspace opacities may reflect edema and/or multifocal pneumonia. D/ / 04/12/2018 14:32:51 Bret Doll MD / monse Interpreting Provider: Bret Doll MD Head CT 04/12/18 13:54 IMPRESSION: No acute intracranial abnormality. D/ / 04/12/2018 16:06:13 Corina Dacosta MD / gina Interpreting Provider: Corina Dacosta MD Consult Discharge Plan - Plan Referrals: Cyrus Coyne DO [Primary Care Provider] - 04/26/18 8:30 am (office said this is the only appointment they have) (4) Diabetic ketoacidosis Qualifiers: Qualified Code(s): E13.10 - Other specified diabetes mellitus with ketoacidosis without coma (8) Coronary artery disease Qualifiers: Qualified Code(s): I25.10 - Atherosclerotic heart disease of [place] coronary artery without angina pectoris
[2018-04-13] MEDS ORDERED: Isovue-370 500 ML BOTTLE IVP ONE (10:45)
[2018-04-13] MEDS: Budesonide/Formoterol 160/4.5 1 PUFF INH IH SCH ×2 (11:04→23:14)
[2018-04-13] MEDS: 0.9 % Sodium Chloride 1,000 ML IVC SCH ×2 (11:13→22:20)
--- NOTE | 2018-04-13 11:30 | Cardiology Consult Note ---
<Rafael Berger - Last Filed: 04/13/18 12:16> Date of Encounter: 04/13/18 Time of Encounter: 11:26 Assessment and Plan (1) Elevated troponin Current Visit: Yes Status: Acute Mild troponin elevation, 0.04, 0.03, 0.17, 0.05. Suspect demand ischemia in the setting of seizure, fall, PNA. EKG reviewed- sinus tachycardia. No acute ST changes. Patient denies chest pain or SOB. TTE ordered to assess LV function.. (2) CAD (coronary artery disease), [place] coronary artery Current Visit: No Status: Chronic H/o NE and prior PCI. Most recent LHC for NSTEMI in 2017 showed LMCA is angiographically free of disease. 99% stenosis in the Proximal LAD. s/p successful intervention with 38mm CLAUDY without complication. 60% stenosis in the Mid LAD. 50% stenosis in the Right PDA. Last TTE 09/05/17- EF EF 50-55%. No significant valvular disease. Note poor cardiology f/u. H/o non-compliance. He denies missed doses of CAD meds. Denies chest pain. Continue asa, plavix, statin, bb. Qualifiers: [place] vs. transplanted heart: [place] heart Associated angina: without angina Qualified Code(s): I25.10 - Atherosclerotic heart disease of [place] coronary artery without angina pectoris Discussion w patient/family: The assessment and plan as outlined above was discussed with the patient and/or family members who expressed understanding and agreement. All questions were answered. Thank you for involving us in the care of your patient. Please call with any questions. History of Present Illness Consult date: 04/13/18 Requesting physician: Jose Severino Consult reason: elevated troponin Chief complaint: seizure History of present illness: Mr. Craig is a 62 year old male with past medical history significant for NE and PCI to the LAD 08/2017, chronic diastolic CHF, DM, COPD, CVA, and seizures who presented from home after developing seizure and falling. He missed multiple doses and his keppra due to inability to afford medication. Cardiology consulted for elevated troponin. During his stay he was also found to have blood glucose greater than 1000 and increased anion gap. He is diagnosed with HHNK. He is also diagnosed with multifocal PNA and UTI. He denies chest pain or SOB currently or prior to seizure. States he is compliant with his cardiac meds. Past Med Surg Social Fam HX - Past Medical History Medical history: arthritis, asthma, CHF, COPD, coronary artery disease, CVA, diabetes, GERD, hyperlipidemia, hypertension, myocardial infarction, peripheral artery disease, other Additional medical history: brain aneurysms x3 Psychiatric history: anxiety, depression, other - Past Surgical History Surgical History: angioplasty/stent, cholecystectomy, herniorrhaphy, knee replacement, orthopedic, other, other Additional surgical history: 4 cardiac stents. B/L knee surgeries - Social History Smoking Status: Current every day smoker Smokeless Tobacco Status: No Alcohol use: none Drug use: none - Family History Mother Family Member Ethnicity: Non- Living Status: Hx Family Cardiac Disorders: Yes Hx Family Respiratory Disorders: Yes Hx Family Cancer: Yes Hx Family GI Disorders: No Hx Family Endocrine Disorder: Yes Hx Family Neuromuscular Disorders: No Hx Family Neurologic Disorders: No Hx Family HEENT Disorders: No Hx Family Autoimmune Disorders: No Father Family Member Ethnicity: Non- Living Status: Hx Family Cardiac Disorders: No Hx Family Respiratory Disorders: No Hx Family Cancer: Yes Hx Family GI Disorders: No Hx Family Endocrine Disorder: No Hx Family Neuromuscular Disorders: No Hx Family Neurologic Disorders: No Hx Family HEENT Disorders: No Hx Family Autoimmune Disorders: No Medications and Allergies Unable To Obtain [Unable to Obtain] 04/12/18 [History] Allergy/AdvReac Type Severity Reaction Status Date / Time codeine AdvReac Vomiting Verified 04/12/18 14:08 All Systems Review: The remainder of the systems were reviewed and are negative Physical Examination Vital Signs, Last 4 Hours Temp Pulse Resp BP Pulse Ox 04/13/18 11:05 18 96 04/13/18 08:19 91 04/13/18 07:47 97.7 F 94 17 142/81 91 General: Other (Drowsy, answers questions appropriatly but falls asleep quickly.) HEENT: Normocephaly, Mucus Membranes Moist, Other (Nose with edema and redness) Neck: No JVD, Normal carotid pulses Cardiac: Reg Rate and Rhythm, Normal S1 and S2, No Murmur Lungs: Normal Breath Sounds, No Wheeze, Rales, Rhonchi Neuro: No focal deficits noted Abdomen: Soft, Non-Tender Skin: No rashes noted on visualized skin Musculoskeletal: No Chest Wall Tenderness Extremities: No Clubbing, No Cyanosis, No Edema, Normal Pulses Results 04/13/18 03:15 04/13/18 03:15 Lab Results 04/12/18 04/12/18 04/12/18 14:11 14:11 17:41 WBC 15.1 H Hgb 12.2 L Hct 36.5 L Plt Count 266 Sodium 133 L Potassium 4.1 Chloride 95 L Carbon Dioxide 16 L BUN 12 Creatinine 1.18 Glucose 1023 H* 829 H* Calcium 9.3 Magnesium Total Bilirubin 0.6 AST 17 ALT 17 Alkaline Phosphatase 204 H Troponin I 0.04 H* 04/12/18 04/12/18 04/12/18 19:53 21:01 21:01 WBC Hgb Hct Plt Count Sodium 141 Potassium 3.4 L Chloride 105 Carbon Dioxide 21 L BUN 14 Creatinine 1.17 Glucose 572 H* 392 H Calcium 9.2 Magnesium Total Bilirubin AST ALT Alkaline Phosphatase Troponin I < 0.03 04/12/18 04/13/18 04/13/18 22:57 00:44 03:15 WBC 17.7 H Hgb 11.2 L Hct 32.8 L Plt Count 267 Sodium 144 144 Potassium 3.7 3.7 Chloride 110 H 110 H Carbon Dioxide 22 L 22 L BUN 14 15 Creatinine 1.27 1.33 H Glucose 195 H 140 H Calcium 9.0 8.9 Magnesium Total Bilirubin AST ALT Alkaline Phosphatase Troponin I 04/13/18 04/13/18 03:15 08:40 WBC Hgb Hct Plt Count Sodium 140 Potassium 3.9 Chloride 107 Carbon Dioxide 21 L BUN 17 Creatinine 1.53 H Glucose 162 H Calcium 9.0 Magnesium 2.2 Total Bilirubin AST ALT Alkaline Phosphatase Troponin I 0.17 H* 0.05 H* - Imaging and Cardiology Echo: report reviewed Cardiac cath: report reviewed - EKG Interpretation EKG results cardiology: personally reviewed (ST waith no acute ST changes) Consult Discharge Plan - Plan Referrals: Cyrus Coyne DO [Primary Care Provider] - 04/26/18 8:30 am (office said this is the only appointment they have) <Sue Mari - Last Filed: 04/13/18 17:41> Date of Encounter: 04/13/18 - Attending Attestation Patient was seen and evaluated independently by me. Findings, assessment and plan were discussed at length with patient, questions answered. Agree with nurse practitioner's/resident's documentation. Addition as follows, 62 yoCM ho CAD CLAUDY-LAD , HFpEF, seizure, DM, COPD. P/w seizure/fall after missing keppra and insulin doses. Imp seizure, DKA, EL, type 1 resp failure, PNA/aspiration?. Consulted for trop peak 0.2. ECG sinus tachy w/o ischemic changes. Pt lethargy after benzo, B/L mid lung rhonchi and crackles, RR tachy, no LE edema. A: Mildly elevated troponin, likely type II NSTEMI or myocardial injury CAD Seizure DKA, EL PNA P: c/w home DAPT, statin, BB no further cardiac workup for now call for questions Sue Mari MD, PhD Assessment and Plan Discussion w patient/family: The assessment and plan as outlined above was discussed with the patient and/or family members who expressed understanding and agreement. All questions were answered. Thank you for involving us in the care of your patient. Please call with any questions. History of Present Illness History of present illness: Mr. Craig is a 62 year old male All Systems Review: The remainder of the systems were reviewed and are negative Physical Examination Vital Signs, Last 4 Hours Temp Pulse Resp BP Pulse Ox 04/13/18 16:54 97.9 F 78 16 103/62 90 Results 04/13/18 03:15 04/13/18 03:15 Lab Results 04/12/18 04/12/18 04/12/18 17:41 19:53 21:01 WBC Hgb Hct Plt Count D-Dimer Sodium Potassium Chloride Carbon Dioxide BUN Creatinine Glucose 829 H* 572 H* Calcium Magnesium Troponin I < 0.03 04/12/18 04/12/18 04/13/18 21:01 22:57 00:44 WBC Hgb Hct Plt Count D-Dimer Sodium 141 144 144 Potassium 3.4 L 3.7 3.7 Chloride 105 110 H 110 H Carbon Dioxide 21 L 22 L 22 L BUN 14 14 15 Creatinine 1.17 1.27 1.33 H Glucose 392 H 195 H 140 H Calcium 9.2 9.0 8.9 Magnesium Troponin I 04/13/18 04/13/18 04/13/18 03:15 03:15 08:40 WBC 17.7 H Hgb 11.2 L Hct 32.8 L Plt Count 267 D-Dimer Sodium 140 Potassium 3.9 Chloride 107 Carbon Dioxide 21 L BUN 17 Creatinine 1.53 H Glucose 162 H Calcium 9.0 Magnesium 2.2 Troponin I 0.17 H* 0.05 H* 04/13/18 11:36 WBC Hgb Hct Plt Count D-Dimer 965 H Sodium Potassium Chloride Carbon Dioxide BUN Creatinine Glucose Calcium Magnesium Troponin I
[2018-04-13 11:51] LABS: ABG Base Excess -3 mEq/L (-2 to 3); ABG HCO3 22 mEq/L (21-27); ABG Oxygen Saturation 90 % (95-98); ABG PCO2 39 mmHg (35-45); ABG PH 7.36 pH Units (7.32-7.45); ABG PO2 60 mmHg (85-104); ABG TCO2 23 mEq/L (20-26)
--- NOTE | 2018-04-13 13:24 | Pulmonology Consult Note ---
Date of Encounter: 04/13/18 Time of Encounter: 13:20 Assessment and Plan (1) Acute on chronic respiratory failure with hypoxia Current Visit: Yes Status: Acute In conclusion this is a 62-year-old gentleman with a history of seizure disorder, diabetes, and tobacco abuse who presented with the active seizure likely secondary to metabolic derangements from DKA. Also has acute hypoxic respiratory failure suspect this is related to pneumonia and likely Legionella given positive urinary Legionella antigen area I reviewed his CT scan and the pattern is not typical for Legionella pneumonia which would be expected to be much more in the consolidative pattern nevertheless given positive urinary antigen this has to be strongly considered the differential as well as empiric treatment is recommended. He is a very high risk for aspiration and I would nikolai pect that the pattern to be more consistent/concerning for this as opposed to Legionella given CT findings upper lobe predominant not withstanding (with encephalopathy/active seizing aspiration the upper lobes is not uncommon). I suspect mild exacerbation of COPD seen on imaging also contributing to hypoxia. In addition he has received aggressive fluid resuscitation in the context of DKA and sepsis and the pattern seen on CT scan can also be related to hydrostatic pulmonary edema from a cardiac etiology. -Recommend respiratory infection panel as well as sputum and blood cultures if not obtained -Agree with treatment with azithromycin for Legionella Zosyn has been added for possible aspiration I suspect that over the next 24-48 hours these antibiotics can be de-escalated -Given incongruent findings and may be helpful to ask infectious disease opinion about the positive Legionella antigen my index of suspicion is low for this diagnosis based upon radiographic imaging and the clinical presentation however I do recommend empiric treatment. -Agree with Symbicort 2 puffs twice a day could consider systemic glucocorticoids if blood glucoses under better control and monitored on the inp atient setting. In any event hilly aggressive bronchodilator regimen duo nebs every 4 hours with every hour albuterol -Given mild encephalopathy and possibly related to recent administration of Ativan full diet at the bedside may be inappropriate consider making the patient nothing by mouth until his more awake -General terms I recommend diuresis as tolerated by blood pressure however in given acute kidney injury gentle diuresis may be indicated I would also strongly encouraged checking CPK to rule out rhabdo given presentation. Clearly if there is rhabdomyolysis present additional IV fluids would be warranted. -Chemical DVT prophylaxis as inpatient unless contraindication arises -I did encourage the patient stop smoking we can revisit this when he is more awake Pulmonary will continue to follow (2) Multifocal pneumonia Current Visit: No Status: Acute (3) Emphysema of lung Current Visit: Yes Status: Acute Qualifiers: Emphysema type: unspecified Qualified Code(s): J43.9 - Emphysema, uns pecified (4) EL (acute kidney injury) Current Visit: Yes Status: Acute (5) Tobacco abuse Current Visit: No Status: Chronic History of Present Illness Consult date: 04/13/18 Requesting physician: Jose Severino Reason for consult: hypoxemia, pneumonia Chief complaint: Seizures History of present illness: This is a 63-year-old gentleman with past medical history suggestive of diabetes seizures and chronic diastolic heart failure associated history of medication noncompliance he was found actively seizing and hyperglycemic on admission was noted to have DKA. Apparently patient had missed multiple doses of his antihyperglycemic regimen including insulin and it also not been taking his antiseizure medication (Keppra). His granddaughter per record and found him actively seizing and called EMS. In the emergency room blood sugar was greater than thousand with increased anion gap metabolic acidosis. Seizures broke with Versed and Ativan and he had a loading dose of Keppra. His been seen by neurology for seizure with recommendations for transition to by mouth Keppra and EEG. Patient was noted to require 6 L supplemental oxygen and is not hypoxemic at baseline. Pulmonary was consulted for further evaluation. Of note CT of chest has been performed which is notable for a "ground glass opacities in intralobular septal thickening with the crazy paving pattern". There is also evidence of mediastinal and paraesophageal lymphadenopathy and emphysema. Of note patient is a willful historian but at times and complete history was gathered from the nursing staff medical record and primary hospitalist as no family is present in the room. 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 B/L knee surgeries - Social History Smoking Status: Current every day smoker Smokeless Tobacco Status: No Alcohol use: none Drug use: none - Family History Mother Family Member Ethnicity: Non- Living Status: Hx Family Cardiac Disorders: Yes Hx Family Respiratory Disorders: Yes Hx Family Cancer: Yes Hx Family GI Disorders: No Hx Family Endocrine Disorder: Yes Hx Family Neuromuscular Disorders: No Hx Family Neurologic Disorders: No Hx Family HEENT Disorders: No Hx Family Autoimmune Disorders: No Father Family Member Ethnicity: Non- Living Status: Hx Family Cardiac Disorders: No Hx Family Respiratory Disorders: No Hx Family Cancer: Yes Hx Family GI Disorders: No Hx Family Endocrine Disorder: No Hx Family Neuromuscular Disorders: No Hx Family Neurologic Disorders: No Hx Family HEENT Disorders: No Hx Family Autoimmune Disorders: No Medications and Allergies Unable To Obtain [Unable to Obtain] 04/12/18 [History] Allergy/AdvReac Type Severity Reaction Status Date / Time codeine AdvReac Vomiting Verified 04/12/18 14:08 All Systems: The remainder of the systems were reviewed and are negative Physical Examination Vital Signs: Vital Signs, Last 4 Hours Temp Pulse Resp BP Pulse Ox 04/13/18 11:57 97.1 F L 75 16 98/60 94 04/13/18 11:05 18 96 General appearance: no acute distress, lethargic (easitly arrousable. Alert person place and time but he is confused about details of his admission to the hospital) ENT: oropharynx moist, epistaxis (Dried blood noted in the Nares) Neck: supple Effort: normal Auscultation: bilateral: rhonchi Cardiovascular: regular rate and rhythm Gastrointestinal: normoactive bowel sounds, soft, non-tender Integumentary: normal Extremities: no cyanosis, no edema, no clubbing Musculoskeletal: no deformities non-focal exam, pupils equal and round mood appropriate Results - Laboratory Findings CBC and BMP: 04/13/18 03:15 04/13/18 03:15 ABG ABG pH 7.36 pH Units (7.32-7.45) 04/13/18 11:49 ABG pCO2 39 mmHg (35-45) 04/13/18 11:49 ABG pO2 60 mmHg (85-104) L 04/13/18 11:49 ABG O2 Saturation 90 % (95-98) L 04/13/18 11:49 PT/INR, D-dimer D-Dimer 965 ng/mLFEU (0-500) H 04/13/18 11:36 Abnormal lab findings: Abnormal lab results WBC 17.7 K/mcL (4.3-11.1) H 04/13/18 03:15 RBC 3.61 M/mcL (4.19-5.50) L 04/13/18 03:15 Hgb 11.2 g/dL (12.9-16.9) L 04/13/18 03:15 Hct 32.8 % (37.5-50.1) L 04/13/18 03:15 RDW 14.8 % (11.5-14.5) H 04/13/18 03:15 MPV 9.2 fL (9.4-12.4) L 04/13/18 03:15 Neutrophils # 14.3 K/mcL (1.6-8.9) H 04/13/18 03:15 D-Dimer 965 ng/mLFEU (0-500) H 04/13/18 11:36 ABG pO2 60 mmHg (85-104) L 04/13/18 11:49 ABG O2 Saturation 90 % (95-98) L 04/13/18 11:49 ABG Base Excess -3 mEq/L (-2 to 3) L 04/13/18 11:49 VBG pH 7.43 pH Units (7.32-7.42) H 04/12/18 17:01 VBG pCO2 29 mmHg (41-51) L 04/12/18 17:01 VBG pO2 221 mmHg (25-50) H 04/12/18 17:01 VBG HCO3 20 mEq/L (21-27) L 04/12/18 17:01 Carbon Dioxide 21 mEq/L (23-29) L 04/13/18 03:15 Creatinine 1.53 mg/dL (0.70-1.30) H 04/13/18 03:15 Est GFR ( Amer) 56 (> 60) L 04/13/18 03:15 Est GFR (Non-Af Amer) 46 (> 60) L 04/13/18 03:15 Glucose 162 mg/dL (70-105) H 04/13/18 03:15 POC Glucose 200 mg/dL (70-99) H 04/13/18 07:50 Alkaline Phosphatase 204 Units/L (34-104) H 04/12/18 14:11 Troponin I 0.05 ng/mL (< 0.04) H* 04/13/18 08:40 Ur Specific [place] > 1.030 (1.010-1.025) H 04/12/18 14:30 Urine Glucose (UA) >=1000 mg/dL (Normal) H 04/12/18 14:30 Urine Ketones 15 mg/dL (Negative) H 04/12/18 14:30 Urine Blood Trace (Negative) H 04/12/18 14:30 - Microbiology Findings Microbiology Findings: Microbiology, Last 48 Hours 04/13/18 01:15 Legionella Antigen - Final Urine,Clean Catch Streptococcus pneumoniae Antigen (M - Final 04/12/18 17:41 Blood Culture - Preliminary Peripheral Venipuncture Culture is incubating and being continuously monitored for growth. Final report to follow. 04/12/18 16:00 Blood Culture - Preliminary Peripheral Venipuncture Culture is incubating and being continuously monitored for growth. Final report to follow. - Diagnostic Findings Chest x-ray: report reviewed, image reviewed - Clinical Findings Intake & Output: Intake & Output 04/12/18 04/13/18 04/13/18 23:59 07:59 15:59 Intake Total 2266.8 / 2266.8 1338.8 / 1338.8 1520 / 1520 Output Total 550 / 550 50 / 50 Balance 2266.8 / 2266.8 788.8 / 788.8 1470 / 1470 Weight 86.1 kg 86.1 kg Consult Discharge Plan - Plan Referrals: Cyrus Coyne DO [Primary Care Provider] - 04/26/18 8:30 am (office said this is the only appointment they have)
[2018-04-13] MEDS: Piperacillin/Tazobactam 3.375 GM in 0.9 % Sodium Chloride Mini Bag 100 ML IVPB SCH (15:06)
[2018-04-13 16:37] LABS: Adenovirus Not Detected (Not Detect); Bordetella Pertussis Not Detected (Not Detect); Chlamydophila pneumoniae Not Detected (Not Detect); Coronavirus 229E Not Detected (Not Detect); Coronavirus HKU1 Not Detected (Not Detect); Coronavirus NL63 Not Detected (Not Detect); Coronavirus OC43 Not Detected (Not Detect); Human Metapneumovirus Not Detected (Not Detect); Human Rhinovirus/Enterovirus Not Detected (Not Detect); Influenza A Subtype 2009 H1 Not Detected (Not Detect); Influenza A Untypeable Not Detected (Not Detect); Influenza B Not Detected (Not Detect); Mycoplasma pneumoniae Not Detected (Not Detect); Parainfluenza Virus 1 Not Detected (Not Detect); Parainfluenza Virus 2 Not Detected (Not Detect); Parainfluenza Virus 3 Not Detected (Not Detect); Parainfluenza Virus 4 Not Detected (Not Detect); Respiratory Syncytial Virus Not Detected (Not Detect)
[2018-04-13] MEDS: Thiamine (B-1) 100 MG, Folic Acid 1 MG, MVI, adult with vitamin K 10 ML in 0.9 % Sodi... IVPB SCH (17:37)
[2018-04-13] MEDS ORDERED: Insulin DETEMIR 100 UNIT/ML X5UNITS SQ SCH (21:00)
[2018-04-13] MEDS ORDERED: Ipratropium/Albuterol Neb 3 ML IH ONE (23:53)
[2018-04-13] MEDS ORDERED: Ipratropium/Albuterol Neb 3 ML ONE (23:58)
[2018-04-14 00:12] LABS: ABG Base Excess -2 mEq/L (-2 to 3); ABG HCO3 22 mEq/L (21-27); ABG Oxygen Saturation 90 % (95-98); ABG PCO2 34 mmHg (35-45); ABG PH 7.43 pH Units (7.32-7.45); ABG PO2 57 mmHg (85-104); ABG TCO2 23 mEq/L (20-26)
[2018-04-14] MEDS: Ipratropium/Albuterol Neb 3 ML IH SCH ×5 (00:16→19:51)
[2018-04-14] MEDS: Piperacillin/Tazobactam 3.375 GM in 0.9 % Sodium Chloride Mini Bag 100 ML IVPB SCH ×4 (00:42→23:31)
[2018-04-14 01:18] LABS: BUN/Creatinine Ratio 18 (6-26); Blood Urea Nitrogen 19 mg/dL (8-23); Calcium 8.6 mg/dL (8.6-10.3); Carbon Dioxide 22 mEq/L (23-29); Chloride 107 mEq/L (98-107); Glucose 94 mg/dL (70-105); Osmolality,Calculated 290 (280-300); Potassium 3.2 mEq/L (3.5-5.1); Sodium 139 mEq/L (136-145); eGFR For Non-African Americans > 60 (> 60)
--- NOTE | 2018-04-14 05:00 | Event Note ---
Addendum entered and electronically signed by Dani Monzon Jake 04/14/18 05:43: Head CT negative. MRI ordered for today Addendum entered and electronically signed by Dani Monzon Jake 04/14/18 05:02: Also - gave breathing tx svetlana x3 on first evaluation, pt had coarse breath sounds to bilateral upper back. Original Note: Date of Encounter: 04/14/18 Time of Encounter: 04:46 Paged around midnight that the pt was more sleepy, acting strange. He appeared to be breathing labored. ABG, BMP, BNP and ammonia ordered stat. ABG showed pH 7.43, pCO2 34, pO2 57 and HCO3 of 22. K 3.2, will replace 40mEq now. On re-evaluation the pt continued to be somnolent. He arouses to sternal rub and to loud voice command when he is yelled at. He is alert and oriented to person and place, but not to time. NO focal neurologic deficits. CN2-12 grossly intact. Sensation intact. Will repeat CT head now to r/o acute intracranial abnormality. Main concern for right now is development of subdural hematoma as he had recent traumatic head injury with obvious abrasions and contusion to the frontal aspect of face. Pt would be precluded from tpa due to recent head trauma. If negative, will MRI of head and brain. Pt does have a supposed hx of intracranial aneurysm but this was not seen on recent head CT obtained 2 days ago. Pt remains protecting airway and is controlling secretions. Will continue to moniter the pt.
[2018-04-14 06:01] LABS: Basophils % 0.1 %; Eosinophils % 0.2 %; Immature Granulocytes % 0.4 % (0-4); Lymphocytes # 1.8 K/mcL (0.6-4.6); Lymphocytes % 13.1 %; Mean Corpuscular HGB Conc 33.3 g/dL (31.6-35.5); Mean Corpuscular Hemoglobin 30.5 pg (28.0-33.3); Mean Corpuscular Volume 91.5 fL (83.0-100.0); Mean Platelet Volume 9.3 fL (9.4-12.4); Monocytes # 0.5 K/mcL (0.0-1.3); Monocytes % 3.5 %; Neutrophils # 11.2 K/mcL (1.6-8.9); Platelet Count 276 K/mcL (140-400); Red Blood Count 3.28 M/mcL (4.19-5.50); Red Cell Distribution Width 15.1 % (11.5-14.5); Segmented Neutrophils % 82.7 %
[2018-04-14 06:23] LABS: BUN/Creatinine Ratio 20 (6-26); Blood Urea Nitrogen 17 mg/dL (8-23); Calcium 8.7 mg/dL (8.6-10.3); Carbon Dioxide 22 mEq/L (23-29); Chloride 109 mEq/L (98-107); Glucose 63 mg/dL (70-105); Magnesium 1.9 mg/dL (1.6-2.6); Osmolality,Calculated 288 (280-300); Potassium 3.2 mEq/L (3.5-5.1); Sodium 139 mEq/L (136-145); eGFR For Non-African Americans > 60 (> 60)
[2018-04-14] MEDS: Metoprolol XL (24 HR) Succ 50 MG TAB.ER.24H PO SCH ×3 (07:33→10:57)
[2018-04-14] MEDS: Gabapentin 400 MG CAPSULE PO SCH ×4 (07:33→20:58)
[2018-04-14] MEDS: Aspirin 81 MG TAB.CHEW PO SCH ×2 (07:34→07:39)
[2018-04-14] MEDS: Insulin LISPRO 300 UNITS/3 ML VIAL SQ SCH ×3 (07:34→17:22)
[2018-04-14] MEDS: ALPRAZolam 1 MG TABLET PO SCH ×2 (07:34→20:58)
[2018-04-14] MEDS: Azithromycin 500 MG in D5% in Water 250 ML IVPB SCH (07:35)
--- NOTE | 2018-04-14 10:16 | Internal Med Progress Note ---
Hospitalist Progress Note - Encounter Date of Encounter: 04/14/18 Time of Encounter: 10:16 - Subjective Interval History: Patient seen and examined this morning at bedside. overnight events . Feeling sleepy this morning and drowsy. Following commands. Denies any pain, difficulty breathing. - Exam Vitals: Temp Pulse Resp BP Pulse Ox 98.2 F 79 18 102/58 100 04/14/18 07:34 04/14/18 07:34 04/14/18 08:00 04/14/18 07:34 04/14/18 08:00 Exam: General: In no acute distress. Conversant but drowsy. Respiratory exam: crackles at base and midlungs bilaterally. no accessory muscle use, rales, rhonchi, wheezes Cardiovascular exam: RRR, +S1, +S2. no murmur, gallop, rubs. GI/Abdominal exam: Non-tender, Non-distended, normal bowel sounds, soft, no peritoneal signs. Extremities exam: full ROM, no pedal edema, warm, pulses palpable in b/l lower extremities. no calf tenderness Neurological exam: drowsy but following command and moving all extremities. Skin exam: No skin rash, ulcer, purpura or ecchymosis. - Assessment and Plan (1) HHNC (hyperglycemic hyperosmolar nonketotic coma) Current Visit: Yes Status: Acute (2) Acute metabolic encephalopathy Current Visit: Yes Status: Acute (3) Seizure Current Visit: Yes Status: Acute (4) Community acquired bacterial pneumonia Current Visit: Yes Status: Acute (5) Diabetic ketoacidosis Current Visit: Yes Status: Acute (6) DVT prophylaxis Current Visit: Yes Status: Acute (7) Coronary artery disease Current Visit: Yes Status: Acute (8) Acute respiratory failure with hypoxia Current Visit: Yes Status: Acute (9) Acute kidney injury Current Visit: Yes Status: Acute - Summary of Assessment and Plan Summary of Assessment and Plan: Acute on chronic respiratory failure with hypoxia - Likely related to Pneumonia. c/w Zosyn and azithrromycin. - CT chest shows ARDS picture. Pulmonary following. - respiratory ifectious panel negative, - Will consult ID given incongruent findings Acute metabolic encephalopathy - possibly secondary to seizures s/p ativn, HHS and pneumonia - On insulin, keppra and IV antibiotics for PNA. - f/u MRI. COPD exacerbation - On steroid taper, duonebs q4h and symbicort. Diabetic ketoacidosis - resolved - decrased levemir to 10 HS as low PO intake. Seizure - came in with active seizures. s/p keppra loading. - c/w keppra 750mg IV BID - Neurology consulted and recs appreciated - MRI ordered overnight for AMS. Head CT unremarkable. Acute kidney injury - improved with IVF. Likely prereanl - CK normal Coronary artery disease - c/w aspirin and plavix. Troponins mildly elevated possibly secondary to demand ischemia. f/u 2d echo DVT prophylaxis - Heparin sc - Time Spent with Patient Total time spent is greater than 50% in coordination of care (as documented) at patient's floor/unit and/or counseling patient: Internal Medicine: Result - Labs CBC & Chem 7: 04/14/18 05:46 04/14/18 05:46 Labs: Short CBC 04/14/18 Range/Units 05:46 WBC 13.5 H (4.3-11.1) K/mcL Hgb 10.0 L (12.9-16.9) g/dL Hct 30.0 L (37.5-50.1) % Plt Count 276 (140-400) K/mcL Neutrophils # 11.2 H (1.6-8.9) K/mcL BMP 04/14/18 04/14/18 00:45 05:46 Sodium 139 139 Potassium 3.2 L 3.2 L Chloride 107 109 H Carbon Dioxide 22 L 22 L BUN 19 17 Creatinine 1.05 0.84 Glucose 94 63 L Calcium 8.6 8.7 - ABG Interpretation ABG results: ABG ABG pH 7.43 pH Units (7.32-7.45) 04/14/18 00:05 ABG pCO2 34 mmHg (35-45) L 04/14/18 00:05 ABG pO2 57 mmHg (85-104) L 04/14/18 00:05 ABG O2 Saturation 90 % (95-98) L 04/14/18 00:05 PT/INR, D-dimer D-Dimer 965 ng/mLFEU (0-500) H 04/13/18 11:36 - Impressions Impressions Cervical Spine CT 04/12/18 13:54 IMPRESSION: No acute abnormality of the cervical spine. D/ / 04/12/2018 16:26:17 Joel Garcia MD / [facility] Interpreting Provider: Joel Garcia MD Chest CT 04/13/18 10:01 IMPRESSION: Areas of ground-glass opacity and interlobular septal thickening with crazy paving pattern noted to the lungs bilaterally with upper lobe predominance, new from prior CT chest 10/07/2017. Pattern can be seen with acute respiratory distress syndrome (ARDS) as well as in the setting of bacterial pneumonia, acute interstitial pneumonia and pulmonary alveolar proteinosis amongst other etiologies. Clinical correlation and continued follow-up recommended. Mediastinal and paraesophageal lymphadenopathy, nonspecific but possibly reactive. Emphysema. Atherosclerosis to include coronary artery disease. D/ / 04/13/2018 11:10:55 Skip Delacruz MD / [facility], [place] Interpreting Provider: Skip Delacruz MD Head CT 04/14/18 04:46 IMPRESSION: No acute intracranial abnormality. D/ / Mikey Toledo MD / Mikey Toledo MD Interpreting Provider: Mikey Toledo MD Consult Discharge Plan - Plan Referrals: Cyrus Coyne DO [Primary Care Provider] - 04/26/18 8:30 am (office said this is the only appointment they have) ____ (5) Diabetic ketoacidosis Qualifiers: Qualified Code(s): E13.10 - Other specified diabetes mellitus with ketoacidosis without coma (7) Coronary artery disease Qualifiers: Qualified Code(s): I25.10 - Atherosclerotic heart disease of [place] coronary artery without angina pectoris
--- NOTE | 2018-04-14 11:23 | Neurology Progress Note ---
Addendum entered and electronically signed by Xochitl Simms MD 04/14/18 17:41: I did a [id number] evaluation with the patient in the presence of nurse practitioner Arvin Graff and I agree with his physical examination, assessment and plan outlined below. At the time of this interview, the patient is neurological status significantly improved and his medical status is currently intact. Patient reports that he remembers the seizure activity described as tremor activity involving both hands without loss of consciousness. The tremor- like activity was not associated with loss of consciousness, tongue biting or urinary incontinence. Not totally convinced that he had a seizure. However, the patient did report seizure activity associated with a loss of consciousness in the past therefore would keep him on antiepileptic therapy in the form of Keppra 750 mg twice a day. 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 We would also cancel MRI of the brain due to rapid improvement of his neurological status. Addendum entered and electronically signed by Arvni Graff 04/14/18 15:00: Patient refused EEG Obtain MRI to r/o [facility] pathology Original Note: Date of Encounter: 04/14/18 Time of Encounter: 11:22 Assessment and Plan (1) Seizures Current Visit: Yes Status: Acute Head CT is negative for intracranial abnormality At this time pt has hx of medication noncompliance which is likely the etiology of his seizure episodes He is also in DKA which may have further lowered seizure threshold Started KEPRA 750mg BID IV; transition to PO when stable Has not had any additional seizure events overnight. EEG pending Continue seizure precautions Subjective Principal diagnosis: SEIZURES Interval history: Neurology has been consulted due to seizures. Patient has a history of seizure disorder who is noncompliant to medication regimen. Additionally he does have emesis which could also cause seizures WITH diabetic ketoacidosis. Per my exam today the patient is more alert but does remain somewhat confused. However, able participate in exam and there does not appear to be any focal or lateralizing deficits. He did not have any seizure activity overnight. Objective - Constitutional Vitals: Temp Pulse Resp BP Pulse Ox 98.2 F 79 18 102/58 100 04/14/18 07:34 04/14/18 07:34 04/14/18 08:00 04/14/18 07:34 04/14/18 08:00 Exam: Examination: General Examination: *CONSTITUTIONAL: Lethargic, no acute distress. We will localized to verbal stimulus. He is somewhat confused. *GENERAL APPEARANCE OF PATIENT well-appearing 62-year-old male *EYES: pupils equal, round, reactive to light and accommodation, conjunctiva clear without masses or ulcerations Musculoskeletal: *GAIT AND STATION not assessed *ASSESSMENT OF MUSCLE STRENGTH IN THE UPPER AND LOWER EXTREMITIES bilateral deltoid, bicep, tricep, document preparer microfilming strength, lt hip flexors ,anterior tibialis, dorsoflexion of the foot 4/5 (patient reports is chronic greater than 3 months) right hip flexor, anterior tibialis, dorsiflexion of the foot 5/5 *MUSCLE TONE IN THE UPPER AND LOWER EXTREMITIES normal. No abnormal movements, fasciculations or atrophy identified. Neurological: *ORIENTATION to person, disoriented otherwise *RECURRENT AND REMOTE MEMORY altered *ATTENTION AND CONCENTRATION are abnormal with lethargy and encephalopathy *LANGUAGE FUNCTION no significant aphasia or dysarthia was noted. Speech is somewhat difficult to understand as the patient is edentulous *FUND OF KNOWLEDGE aware of current events, past history, vocabulary *MENTAL attention span and concentration altered *CN II optic fundi were normal, no papilledema noted. *CN III,IV, PERRLA extraocular eye movements were full, no nystagmus and no ptosis noted. *CN V shows normal sensation and jaw opens symmetrically. *CN VII shows normal facial movement symmetrically, upper and lower bilaterally. *CN VIII shows no significant hearing loss on exam *CN IX,,X palate elevated symmetrically *CN XI normal strength in the sternocleidomastoid muscles, symmetrical shoulder shrugging. *SENSORY EXAMINATION light touch intact *REFLEXES: deep tendon reflexes were diffusely diminished diffusely, no pathological reflexes were noted. *CEREBELLAR TESTING normal finger to nose, heel/knee/quiroga, and tandem walk. *PAIN LEVEL 0/10 Results - Laboratory Findings CBC and BMP: 04/14/18 05:46 04/14/18 05:46 Abnormal lab findings: Abnormal lab results WBC 13.5 K/mcL (4.3-11.1) H 04/14/18 05:46 RBC 3.28 M/mcL (4.19-5.50) L 04/14/18 05:46 Hgb 10.0 g/dL (12.9-16.9) L 04/14/18 05:46 Hct 30.0 % (37.5-50.1) L 04/14/18 05:46 RDW 15.1 % (11.5-14.5) H 04/14/18 05:46 MPV 9.3 fL (9.4-12.4) L 04/14/18 05:46 Neutrophils # 11.2 K/mcL (1.6-8.9) H 04/14/18 05:46 D-Dimer 965 ng/mLFEU (0-500) H 04/13/18 11:36 ABG pCO2 34 mmHg (35-45) L 04/14/18 00:05 ABG pO2 57 mmHg (85-104) L 04/14/18 00:05 ABG O2 Saturation 90 % (95-98) L 04/14/18 00:05 VBG pH 7.43 pH Units (7.32-7.42) H 04/12/18 17:01 VBG pCO2 29 mmHg (41-51) L 04/12/18 17:01 VBG pO2 221 mmHg (25-50) H 04/12/18 17:01 VBG HCO3 20 mEq/L (21-27) L 04/12/18 17:01 Potassium 3.2 mEq/L (3.5-5.1) L 04/14/18 05:46 Chloride 109 mEq/L (98-107) H 04/14/18 05:46 Carbon Dioxide 22 mEq/L (23-29) L 04/14/18 05:46 Glucose 63 mg/dL (70-105) L 04/14/18 05:46 POC Glucose 192 mg/dL (70-99) H 04/13/18 20:23 Alkaline Phosphatase 204 Units/L (34-104) H 04/12/18 14:11 Troponin I 0.05 ng/mL (< 0.04) H* 04/13/18 08:40 B-Natriuretic Peptide 361 pg/mL (Less than 100) H 04/14/18 00:45 Ur Specific [place] > 1.030 (1.010-1.025) H 04/12/18 14:30 Urine Glucose (UA) >=1000 mg/dL (Normal) H 04/12/18 14:30 Urine Ketones 15 mg/dL (Negative) H 04/12/18 14:30 Urine Blood Trace (Negative) H 04/12/18 14:30 Consult Discharge Plan - Plan Referrals: Cyrus Coyne DO [Primary Care Provider] - 04/26/18 8:30 am (office said this is the only appointment they have)
--- NOTE | 2018-04-14 11:28 | Infectious Disease Consult ---
Date of Encounter: 04/14/18 Time of Encounter: 11:49 Assessment and Plan (1) Sepsis Status: Acute Assessment and plan: The patient had two SIRS criteria on admission with lactic acidosis and elevated troponin and EL. Likely secondary to PNA. Improved. Lactic acidosis resolved. WBC trending down. Tachycardia improved. Blood cultures drawn 04/12/18 are pending x 2 sets. Recommendations: Await blood cultures to finalize. Send sputum for culture of the patient is able to provide an adequate specimen. Supportive care per the pulmonology and primary teams. Continue zithromax 500mg IV daily. Continue zosyn 3.375 grams IV Q8H. Duration of treatment depends on the clinical picture. Monitor renal function and dose-adjust antibiotics. Please ensure infection control aware of the + Legionella as this is a reportable disease. Qualifiers: Sepsis type: sepsis due to unspecified organism Qualified Code(s): A41.9 - Sepsis, unspecified organism (2) Pneumonia Status: Acute Assessment and plan: Location: Multifocal. Causative organism: Legionella. Concern for aspiration too given recent seizure activity. Respiratory infectious panel negative. Strep pneumo UAT negative. Legionella UAT positive. CT chest showed findings concerning for ARDS vs. pulmonary edema vs. PNA. Pulmonology consulted. Appreciate recommendations. Currently on Zosyn and azithromycin. Qualifiers: Pneumonia type: due to unspecified organism Laterality: left Lung location: unspecified part of lung Qualified Code(s): J18.9 - Pneumonia, unspecified organism (3) Diabetic ketoacidosis Status: Acute Assessment and plan: Anion gap 23 on admission. Gap is closed. Management per the primary team. Qualifiers: Diabetes mellitus type: type 2 Diabetes mellitus complication detail: without coma Qualified Code(s): E11.10 - Type 2 diabetes mellitus with ketoacidosis without coma (4) Closed head injury Status: Acute Assessment and plan: Secondary to seizure. CT head negative x 2. MRI of the brain pending. Qualifiers: Encounter type: initial encounter Qualified Code(s): S09.90XA - Unspecified injury of head, initial encounter (5) Seizure Status: Acute Assessment and plan: Likely secondary to infection and noncompliance with medications. Neurology consulted and following. (6) Acute metabolic encephalopathy Status: Acute Assessment and plan: Likely multifactorial: sepsis + medications + other. CT head negative x2. MRI of the brain pending completion today. Neurology consulted and following. (7) Acute kidney injury Status: Acute Assessment and plan: Likely secondary to sepsis. Resolved. (8) Acute on chronic respiratory failure with hypoxia Status: Acute Assessment and plan: Likely multifactorial: encephalopathy + PNA + COPD. Currently on 4LPM via NC. Pulmonology consulted and following. (9) CAD (coronary artery disease), [place] coronary artery Status: Chronic Qualifiers: [place] vs. transplanted heart: [place] heart Associated angina: without angina Qualified Code(s): I25.10 - Atherosclerotic heart disease of [place] coronary artery without angina pectoris (10) Emphysema of lung Status: Chronic Qualifiers: Emphysema type: unspecified Qualified Code(s): J43.9 - Emphysema, unspecified (11) IDDM (insulin dependent diabetes mellitus) Status: Chronic Assessment and plan: Strict glucose control per the primary team. (12) Tobacco use Status: Chronic (13) HTN (hypertension) Status: Chronic Qualifiers: Hypertension type: essential hypertension Qualified Code(s): I10 - Essential (primary) hypertension (14) COPD (chronic obstructive pulmonary disease) Status: Chronic Qualifiers: COPD type: unspecified COPD Qualified Code(s): J44.9 - Chronic obstructive pulmonary disease, unspecified (15) HLD (hyperlipidemia) Status: Chronic Qualifiers: Hyperlipidemia type: pure hypercholesterolemia Qualified Code(s): E78.00 - Pure hypercholesterolemia, unspecified; E78.0 - Pure hypercholesterolemia (16) Anxiety and depression Status: Chronic Infectious Disease HPI - Data of Consult Patient: new to practice Consult date: 04/14/18 Requesting Physician: Ayanna Doll MD Primary Care Provider: Cyrus Coyne DO - Consult Narrative Reason for consult: "antibiotic guidance" History of present illness: Mr. Craig is a 62 year old male with past medical history of seizures, noncompliant with medications, asthma, CHF, COPD, CAD, CVA, type 2 diabetes, ID, PAD, anxiety, and depression. The patient was admitted to the hospital 2 for pneumonia and DKA. We are consulted for a hepatic recommendations for pneumonia. Briefly, the patient is a 62-year-old male with past medical history as stated above. The patient was found to be seizing at home by his granddaughter was brought to the emergency department for evaluation. Upon arrival, he was tachycardic, hypoxic, and had leukocytosis with neutrophilic predominance. He also lactic acid of 5.6. Renal function was normal. Blood glucose was markedly elevated at 1023. Anion gap is calculated at 23. Troponin was mildly elevated 0.04. Urinalysis was negative for pyuria. He had a CT of the head and cervical spine that were negative for acute abnormality. He had a chest x-ray showed diffuse bilateral interstitial and airspace opacities concerning for edema versus multifocal pneumonia. He was started empirically on IV antibiotics and admitted to the hospital for further evaluation. Since admission, the patient has had waxing and waning altered bowel status. His white blood cell count is trending down. He has been afebrile. Tachycardia has resolved. Neurology, pulmonology, and cardiology have been consulted to assist with his management. He had a CT of the chest to that showed areas of groundglass opacity and intralobular septal thickening with crazy paving pattern noted to the lungs bilaterally with upper lobe predominance, new from prior CT chest 10/07/17. Pattern can be seen with acute respiratory distress syndrome as well as in the setting of bacterial pneumonia, acute interstitial pneumonia, and pulmonary alveolar proteinosis amongst other etiologies. Pulmonology does not feel that the distribution on CT chest indicative of Legionella PNA. Strep pneumococcal antigen was negative. Legionella urinary antigen was positive. Respiratory infectious panel was negative. Overnight, he was noted to have altered mental status. He had a repeat CT of the head that was negative. He is scheduled to undergo an MRI of the brain later today. Currently, the patient is on Zithromax and Zosyn. We have been asked to evaluate and make further recommendations. During my exam today, the patient states that he has had chest congestion and a dry cough for a few weeks prior to admission. He does not recall the events leading up to his hospitalization. Denies fevers, chills, or rigors. Denies nasal congestion, earache, or sore throat. Denies chest pain, but does endorse some intermittent shortness of breath. Denies nausea, vomiting, diarrhea, or constipation. Denies abdominal pain or urinary complaints and states his appetite has been okay. Reports chronic back and bilateral knee pain that are at baseline. Denies oral thrush or new skin lesions. The patient lives at home with his daughter. He is retired. Denies recent travel. Denies pet/animal exposure. He smokes a pack of cigarettes per day. Denies chronic infectious diseases. CC: Ayanna Doll MD Past Med Surg Social Fam HX - Past Medical History Attestation: Yes The following information was validated with the patient. Source: patient, old records reviewed, nursing notes reviewed Medical history: arthritis, asthma, CHF, COPD, coronary artery disease, CVA, diabetes, GERD, hyperlipidemia, hypertension, myocardial infarction, peripheral artery disease, other Additional medical history: brain aneurysms x3 Psychiatric history: anxiety, depression, other - Past Surgical History Surgical History: angioplasty/stent, cholecystectomy, herniorrhaphy, knee replacement, orthopedic, other, other Additional surgical history: 4 cardiac stents. B/L knee surgeries - Social History Smoking Status: Current every day smoker Packs per day: 1 Smokeless Tobacco Status: No Alcohol use: none Drug use: none Occupational status: retired Current living situation: Home, With Family Activity Level: Independent ambulation Recent Out of Country Travel Within the Last 8 Weeks: No Exposure or Possible Exposure to Illness During Travel: No - Family History Father Family Member Ethnicity: Non- Living Status: Hx Family Cardiac Disorders: No Hx Family Respiratory Disorders: No Hx Family Cancer: Yes Hx Family GI Disorders: No Hx Family Endocrine Disorder: No Hx Family Neuromuscular Disorders: No Hx Family Neurologic Disorders: No Hx Family HEENT Disorders: No Hx Family Autoimmune Disorders: No Mother Family Member Ethnicity: Non- Living Status: Hx Family Cardiac Disorders: Yes Hx Family Respiratory Disorders: Yes Hx Family Cancer: Yes Hx Family GI Disorders: No Hx Family Endocrine Disorder: Yes Hx Family Neuromuscular Disorders: No Hx Family Neurologic Disorders: No Hx Family HEENT Disorders: No Hx Family Autoimmune Disorders: No Infectious Disease-CN:Meds Acetaminophen [Tylenol] 1,000 mg PO DAILY PRN 04/13/18 [History] Gabapentin 800 mg PO TID 04/13/18 [History] Ibuprofen [Ibu-200] 400 mg PO DAILY PRN 04/13/18 [History] Oxycodone HCl [Roxybond] 15 mg PO Q4H PRN 04/13/18 [History] RX: ALPRAZolam [Xanax 1 MG Tablet] 1 mg PO BID 04/13/18 [History] RX: Insulin Degludec [Tresiba Flextouch U-200] 30 unit SQ DAILY 04/13/18 [History] RX: Zolpidem [Ambien] 10 mg PO HS 04/13/18 [History] levETIRAcetam [Roweepra] 750 mg PO Q12H 04/13/18 [History] Allergy/AdvReac Type Severity Reaction Status Date / Time codeine AdvReac Vomiting, Verified 04/13/18 19:03 NAUSEA All systems: reviewed and no additional remarkable complaints except as stated Exam - Constitutional Vitals: Temp Pulse Resp BP Pulse Ox 98.2 F 79 18 102/58 100 04/14/18 07:34 04/14/18 07:34 04/14/18 08:00 04/14/18 07:34 04/14/18 08:00 General appearance: average body habitus, cooperative, no acute distress - Head Head exam: Present: atraumatic, normocephalic. Absent: normal inspection (Abrasion noted to the right forehead.) - Eye Eye exam: Present: EOMI, normal appearance, PERRL Pupils: Present: normal accommodation - ENT ENT exam: Present: mucous membranes moist Additional comments: Dried blood noted in the bilateral nares. - Neck Neck exam: Present: normal inspection. Absent: meningismus - Respiratory Respiratory exam: Present: CTAB. Absent: rales, respiratory distress, rhonchi, wheezes - Cardiovascular Cardiovascular exam: Present: RRR, +S1, +S2 - GI/Abdominal GI/Abdominal exam: Present: normal bowel sounds, soft. Absent: distended, tenderness - Extremities Exam Extremities exam: Absent: joint swelling, normal inspection (Abrasions noted to the bilateral knees), pedal edema, tenderness - Neurological Exam Neurological exam: Present: alert, oriented X3, no focal deficits - Psychiatric Psychiatric exam: Present: normal affect, normal mood - Skin Skin exam: Present: dry, intact, normal color, warm Infectious Disease CN: Results - Labs CBC & Chem 7: 04/15/18 05:13 04/15/18 05:13 Cultures: Cultures 04/13/18 01:15 Legionella Antigen - Final Urine,Clean Catch Streptococcus pneumoniae Antigen (M - Final 04/12/18 17:41 Blood Culture - Preliminary Peripheral Venipuncture Culture is incubating and being continuously monitored for growth. Final report to follow. 04/12/18 16:00 Blood Culture - Preliminary Peripheral Venipuncture Culture is incubating and being continuously monitored for growth. Final report to follow. Serology: Serology 04/13/18 04/12/18 Range/Units 13:25 14:30 Urine Color Yellow (Yellow) Urine Clarity Clear (Clear) Urine pH 6.0 (5.0-8.0) pH Units Ur Specific [place] > 1.030 H (1.010-1.025) Urine Protein Negative (Neg-Trace) mg/dL Urine Glucose (UA) >=1000 H (Normal) mg/dL Urine Ketones 15 H (Negative) mg/dL Urine Blood Trace H (Negative) Urine Nitrite Negative (Negative) Urine Bilirubin Negative (Negative) Urine Urobilinogen Normal (Normal) mg/dL Ur Leukocyte Esterase Negative (Negative) Urine Microscopic RBC 0-3 (0-3) per hpf Urine Microscopic WBC 0-3 (0-3) per hpf Ur Squamous Epith Cells None Seen (None-Few) per lpf Urine Bacteria None Seen (None-Few) per hpf Hyaline Casts None Seen (None-Few) per lpf Ur Culture Indicated? NO (NO) Chlamy pneumoniae PCR Not Detected (Not Detect) Adenovirus (PCR) Not Detected (Not Detect) B. pertussis DNA (PCR) Not Detected (Not Detect) B.parapertussis DNA PCR Not Detected (Not Detect) Coronavirus OC43 (PCR) Not Detected (Not Detect) Coronavirus HKU1 (PCR) Not Detected (Not Detect) Coronavirus 229E (PCR) Not Detected (Not Detect) Coronavirus NL63 (PCR) Not Detected (Not Detect) Human Metapneumovir PCR Not Detected (Not Detect) Influenza A (H1) PCR Not Detected (Not Detect) Influ A (H1N1/09) PCR Not Detected (Not Detect) Influenza A (H3) PCR Not Detected (Not Detect) Influenza A Untype (PCR) Not Detected (Not Detect) Influenza Type B (PCR) Not Detected (Not Detect) M.pneumoniae DNA (PCR) Not Detected (Not Detect) Parainfluenza 1 (PCR) Not Detected (Not Detect) Parainfluenza 2 (PCR) Not Detected (Not Detect) Parainfluenza 3 (PCR) Not Detected (Not Detect) Parainfluenza 4 (PCR) Not Detected (Not Detect) RSV (PCR) Not Detected (Not Detect) Entero/Rhino (PCR) Not Detected (Not Detect) Consult Discharge Plan - Plan Referrals: Navjot Canela MD [Partnered Physician] - 04/22/18 1:45 pm Cyrus Coyne DO [Primary Care Provider] - 04/26/18 8:30 am (office said this is the only appointment they have) - Attending Attestation I have personally performed a face to face evaluation on this patient. I have reviewed and agree with the care plan. History and Exam by me shows: This is an addendum to original report dictated by Reina Lemus CNP. Please refer to Reina's note for full details. Patient is a 62-year-old gentleman who is not a good historian who has a history of seizure disorder with noncompliance presented to [place] with DKA and pneumonia. We were asked to evaluate the patient for legionnaire disease. When patient arrived he had elevated glucose of 1023 and an anion gap of 23. CT of the chest reveals groundglass opacities and intralobular septal thickening with crazy pavement pattern noted in the lungs bilaterally in upper lobe predominanc e. I did review the CT chest with the pulmonary team. Patient slipped no antigen came back positive we were asked to evaluate the patient's make further recommendations. On further questioning patient has not traveled. Has not been to any [employer] centers of hotels. Has not been in any nursing homes or recent hospitalization. I am not sure where he had the legionella from. Assessment and plan: Sepsis Pneumonia Diabetic ketoacidosis History of seizure disorder Poorly controlled diabetes mellitus Recommendations patient clinically doing much better. Continue azithromycin IV for now. Consider stopping Zosyn if there is no obvious source of infection. Duration of treatment likely 7-10 days.
[2018-04-14] MEDS: Budesonide/Formoterol 160/4.5 1 PUFF INH IH SCH ×2 (11:59→19:51)
--- NOTE | 2018-04-14 13:10 | Pulmonology Progress Note ---
Date of Encounter: 04/14/18 Time of Encounter: 08:00 Assessment and Plan (1) Acute respiratory failure with hypoxia Current Visit: Yes Status: Acute Patient presenting with acute hypoxic respiratory failure most likely secondary to pneumonia versus pulmonary edema will continue the current regimen of atypical antibiotic coverage leave the other antibiotic regimen to infectious disease. To continue oxygen supplementation to keep saturation above 94%. To keep nothing by mouth after midnight in case we need to do bronchoscopy tomorrow if his VQ mismatches getting worse since her V/Q mismatch is getting better is reasonable to treat has this atypical pneumonia with macrolides for now I will see him in 2 weeks in clinic. Pulmonary will continue to follow to do gentle diuresis as tolerated. Patient will need workup for his seizures and will need to close hospitalist management for for his uncontrolled hyperglycemia we will give her a short burst of steroids and his current blood pressure be closely monitored. (2) Pneumonia Current Visit: Yes Status: Acute Social suspected can be Legionella pneumonia with legionella antigen positive and with his bilateral groundglass with crazy prevent can be due to Legionella I highly doubt this is pulmonary alveolar proteinosis or interstitial pneumonia (oxygen requirement got better with just antibiotics. If his V/Q mismatch again worsen I told patient he might need bronchoscopy patient was reluctant to do bronchoscopy now but he was willing to do if the symptoms are not getting better. Qualifiers: Pneumonia type: due to unspecified organism Laterality: bilateral Lung location: upper lobe of lung Qualified Code(s): J18.1 - Lobar pneumonia, unspecified organism Subjective Principal diagnosis: SEIZURES Interval history: Patient is doing well today say his shortness of breadth is lot better , presented with seizures and with worsening hyperglycemia oxygenation requirements coming down patient was put on empirical atypical coverage for nikolai pected Legionella infection CT scan was significant for Bilateral groundglass opacity with Crazy pavement pattern concerning for atypical pneumonia versus pulmonary edema versus alveolar proteinosis versus interstitial pneumonia. Patient denies any other constitutional symptoms. Objective PUL Vital signs: Last Vital Signs Temp 98.0 F 04/14/18 11:57 Pulse 85 04/14/18 11:57 Resp 18 04/14/18 12:00 BP 102/63 04/14/18 11:57 Pulse Ox 96 04/14/18 12:00 Auscultation: bilateral: diminished breath sounds (basilar diminished breadth sounds ), rhonchi (minimal scattered rhonchi ) Extremities: no edema Gait: other (unable to assess) normal mental status, non-focal exam depressed Results - Laboratory Findings CBC and BMP: 04/14/18 05:46 04/14/18 05:46 ABG ABG pH 7.43 pH Units (7.32-7.45) 04/14/18 00:05 ABG pCO2 34 mmHg (35-45) L 04/14/18 00:05 ABG pO2 57 mmHg (85-104) L 04/14/18 00:05 ABG O2 Saturation 90 % (95-98) L 04/14/18 00:05 PT/INR, D-dimer D-Dimer 965 ng/mLFEU (0-500) H 04/13/18 11:36 Abnormal lab findings: Abnormal lab results WBC 13.5 K/mcL (4.3-11.1) H 04/14/18 05:46 RBC 3.28 M/mcL (4.19-5.50) L 04/14/18 05:46 Hgb 10.0 g/dL (12.9-16.9) L 04/14/18 05:46 Hct 30.0 % (37.5-50.1) L 04/14/18 05:46 RDW 15.1 % (11.5-14.5) H 04/14/18 05:46 MPV 9.3 fL (9.4-12.4) L 04/14/18 05:46 Neutrophils # 11.2 K/mcL (1.6-8.9) H 04/14/18 05:46 D-Dimer 965 ng/mLFEU (0-500) H 04/13/18 11:36 ABG pCO2 34 mmHg (35-45) L 04/14/18 00:05 ABG pO2 57 mmHg (85-104) L 04/14/18 00:05 ABG O2 Saturation 90 % (95-98) L 04/14/18 00:05 VBG pH 7.43 pH Units (7.32-7.42) H 04/12/18 17:01 VBG pCO2 29 mmHg (41-51) L 04/12/18 17:01 VBG pO2 221 mmHg (25-50) H 04/12/18 17:01 VBG HCO3 20 mEq/L (21-27) L 04/12/18 17:01 Potassium 3.2 mEq/L (3.5-5.1) L 04/14/18 05:46 Chloride 109 mEq/L (98-107) H 04/14/18 05:46 Carbon Dioxide 22 mEq/L (23-29) L 04/14/18 05:46 Glucose 63 mg/dL (70-105) L 04/14/18 05:46 POC Glucose 108 mg/dL (70-99) H 04/14/18 07:31 Alkaline Phosphatase 204 Units/L (34-104) H 04/12/18 14:11 Troponin I 0.05 ng/mL (< 0.04) H* 04/13/18 08:40 B-Natriuretic Peptide 361 pg/mL (Less than 100) H 04/14/18 00:45 Ur Specific [place] > 1.030 (1.010-1.025) H 04/12/18 14:30 Urine Glucose (UA) >=1000 mg/dL (Normal) H 04/12/18 14:30 Urine Ketones 15 mg/dL (Negative) H 04/12/18 14:30 Urine Blood Trace (Negative) H 04/12/18 14:30 - Microbiology Findings Microbiology Findings: Microbiology, Last 48 Hours 04/13/18 01:15 Legionella Antigen - Final Urine,Clean Catch Streptococcus pneumoniae Antigen (M - Final 04/12/18 17:41 Blood Culture - Preliminary Peripheral Venipuncture Culture is incubating and being continuously monitored for growth. Final report to follow. 04/12/18 16:00 Blood Culture - Preliminary Peripheral Venipuncture Culture is incubating and being continuously monitored for growth. Final report to follow. - Clinical Findings Intake & Output: Intake & Output 04/13/18 04/14/18 04/14/18 23:59 07:59 15:59 Intake Total 1325 / 1325 100 / 100 555 / 555 Output Total 75 / 75 Balance 1250 / 1250 100 / 100 555 / 555 Weight 88.6 kg Consult Discharge Plan - Plan Referrals: Navjot Canela MD [Partnered Physician] - 04/22/18 1:45 pm Cyrus Coyne DO [Primary Care Provider] - 04/26/18 8:30 am (office said this is the only appointment they have)
--- NOTE | 2018-04-14 13:25 | Event Note ---
Date of Encounter: 04/14/18 Time of Encounter: 13:24 - Cardiology Event Note TTE completed--LVEF 50-55%. Normal LV chamber size, wall thickness and function. Normal left ventricular diastolic function. Normal right ventricular structure and function. Mild tricuspid regurgitation. No evidence of pulmonary hyper tension. No further inpt cardiac testing warranted. Cardiology signing off. Reconsult PRN.
[2018-04-14] MEDS: *HR* Heparin 5,000 UNIT/ML VIAL SQ SCH ×2 (13:50→20:59)
[2018-04-14] MEDS: MethylPREDNISolone 40 MG/ML VIAL IVP SCH ×2 (17:22→23:30)
[2018-04-14] MEDS: levETIRAcetam 750 MG in 0.9 % Sodium Chloride 100 ML IVPB SCH (20:54)
[2018-04-14] MEDS ORDERED: Insulin DETEMIR 100 UNIT/ML X5UNITS SQ SCH (21:00)
[2018-04-15] MEDS: *HR* Heparin 5,000 UNIT/ML VIAL SQ SCH ×2 (06:22→14:01)
[2018-04-15 06:34] LABS: Basophils % 0.1 %; Hematocrit 31.8 % (37.5-50.1); Hemoglobin 10.6 g/dL (12.9-16.9); Immature Granulocytes % 0.8 % (0-4); Lymphocytes # 1.1 K/mcL (0.6-4.6); Lymphocytes % 14.9 %; Mean Corpuscular HGB Conc 33.3 g/dL (31.6-35.5); Mean Corpuscular Hemoglobin 30.4 pg (28.0-33.3); Mean Corpuscular Volume 91.1 fL (83.0-100.0); Mean Platelet Volume 9.8 fL (9.4-12.4); Monocytes # 0.1 K/mcL (0.0-1.3); Monocytes % 1.5 %; Neutrophils # 6.1 K/mcL (1.6-8.9); Platelet Count 279 K/mcL (140-400); Red Blood Count 3.49 M/mcL (4.19-5.50); Red Cell Distribution Width 15.2 % (11.5-14.5); Segmented Neutrophils % 82.7 %
[2018-04-15 06:59] LABS: BUN/Creatinine Ratio 26 (6-26); Blood Urea Nitrogen 18 mg/dL (8-23); Calcium 8.9 mg/dL (8.6-10.3); Carbon Dioxide 18 mEq/L (23-29); Chloride 107 mEq/L (98-107); Glucose 244 mg/dL (70-105); Magnesium 2.1 mg/dL (1.6-2.6); Osmolality,Calculated 296 (280-300); Phosphorous 3.5 mg/dL (2.7-4.5); Potassium 4.4 mEq/L (3.5-5.1); Sodium 138 mEq/L (136-145); eGFR For Non-African Americans > 60 (> 60)
[2018-04-15] MEDS: Insulin LISPRO 300 UNITS/3 ML VIAL SQ SCH ×2 (07:44→11:24)
[2018-04-15] MEDS: MethylPREDNISolone 40 MG/ML VIAL IVP SCH (07:45)
[2018-04-15] MEDS: Piperacillin/Tazobactam 3.375 GM in 0.9 % Sodium Chloride Mini Bag 100 ML IVPB SCH (07:45)
[2018-04-15] MEDS: Azithromycin 500 MG in D5% in Water 250 ML IVPB SCH (07:47)
[2018-04-15] MEDS: Ipratropium/Albuterol Neb 3 ML IH SCH ×3 (07:50→15:45)
[2018-04-15] MEDS: Budesonide/Formoterol 160/4.5 1 PUFF INH IH SCH (07:50)
[2018-04-15] MEDS: Aspirin 81 MG TAB.CHEW PO SCH (08:27)
[2018-04-15] MEDS: Metoprolol XL (24 HR) Succ 50 MG TAB.ER.24H PO SCH (08:27)
[2018-04-15] MEDS: levETIRAcetam 750 MG in 0.9 % Sodium Chloride 100 ML IVPB SCH (08:27)
[2018-04-15] MEDS: Gabapentin 400 MG CAPSULE PO SCH ×2 (08:27→14:01)
[2018-04-15] MEDS: ALPRAZolam 1 MG TABLET PO SCH (08:27)
--- NOTE | 2018-04-15 10:51 | Infectious Disease Progress No ---
Date of Encounter: 04/15/18 Time of Encounter: 09:50 - Assessment and Plan (1) Sepsis Status: Acute The patient had two SIRS criteria on admission with lactic acidosis and elevated troponin and EL. Likely secondary to PNA. Improved. Lactic acidosis resolved. White blood cell count has normalized. Tachycardia has resolved. Blood cultures drawn 04/12/18 are no growth to date x 2 sets. Recommendations: Await blood cultures to finalize. Send sputum for culture of the patient is able to provide an adequate specimen. Supportive care per the pulmonology and primary teams. Continue zithromax 500mg IV daily. Continue zosyn 3.375 grams IV Q8H. Duration of treatment depends on the clinical picture. Monitor renal function and dose-adjust antibiotics. Please ensure infection control aware of the + Legionella as this is a reportable disease. Qualifiers: Sepsis type: sepsis due to unspecified organism Qualified Code(s): A41.9 - Sepsis, unspecified organism (2) Pneumonia Status: Acute Location: Multifocal. Causative organism: Legionella. Concern for aspiration too given recent seizure activity. Respiratory infectious panel negative. Strep pneumo UAT negative. Legionella UAT positive. CT chest showed findings concerning for ARDS vs. pulmonary edema vs. PNA. Pulmonology consulted. Appreciate recommendations. Currently on Zosyn and azithromycin. Qualifiers: Pneumonia type: due to unspecified organism Laterality: left Lung location: unspecified part of lung Qualified Code(s): J18.9 - Pneumonia, unspecified organism (3) Diabetic ketoacidosis Status: Acute Anion gap 23 on admission. Gap is closed. Management per the primary team. Qualifiers: Diabetes mellitus type: type 2 Diabetes mellitus complication detail: without coma Qualified Code(s): E11.10 - Type 2 diabetes mellitus with ketoacidosis without coma (4) Closed head injury Status: Acute Secondary to seizure. CT head negative x 2. MRI canceled by the primary team. Qualifiers: Encounter type: initial encounter Qualified Code(s): S09.90XA - Unspecified injury of head, initial encounter (5) Seizure Status: Acute Likely secondary to infection and noncompliance with medications. Neurology consulted and following. (6) Acute metabolic encephalopathy Status: Acute Likely multifactorial: sepsis + medications + other. CT head negative x2. MRI of the brain canceled. Neurology consulted and following. Improved. (7) Acute kidney injury Status: Acute Likely secondary to sepsis. Resolved. (8) Acute on chronic respiratory failure with hypoxia Status: Acute Likely multifactorial: encephalopathy + PNA + COPD. Results. Currently on room air. Pulmonology consulted and following. (9) CAD (coronary artery disease), [place] coronary artery Status: Chronic Qualifiers: [place] vs. transplanted heart: [place] heart Associated angina: without angina Qualified Code(s): I25.10 - Atherosclerotic heart disease of [place] coronary artery without angina pectoris (10) Emphysema of lung Status: Chronic Qualifiers: Emphysema type: unspecified Qualified Code(s): J43.9 - Emphysema, unsp ecified (11) IDDM (insulin dependent diabetes mellitus) Status: Chronic Strict glucose control per the primary team. (12) Tobacco use Status: Chronic (13) HTN (hypertension) Status: Chronic Qualifiers: Hypertension type: essential hypertension Qualified Code(s): I10 - Essential (primary) hypertension (14) COPD (chronic obstructive pulmonary disease) Status: Chronic Qualifiers: COPD type: unspecified COPD Qualified Code(s): J44.9 - Chronic obstructive pulmonary disease, unspecified (15) HLD (hyperlipidemia) Status: Chronic Qualifiers: Hyperlipidemia type: pure hypercholesterolemia Qualified Code(s): E78.00 - Pure hypercholesterolemia, unspecified; E78.0 - Pure hypercholesterolemia (16) Anxiety and depression Status: Chronic - Subjective Interval history: Patient seen and examined. No acute events noted overnight. Per nursing, the patient's altered mental status has completely resolved. He was awake alert and oriented this morning. During my exam, he is Drowsy, but awakens easily. He falls back asleep quickly, but does participate in exam. He denies any fevers or chills or rigors. Denies chest pain, shortness of breath, or cough. Denies nausea, vomiting, diarrhea, or constipation. Denies abdominal pain or urinary complaints. He states his appetite is okay, but he has been nothing by mouth for possible bronchoscopy later today. He denies any oral thrush or any skin lesions. Infect Dis PN-Objective Data - Labs CBC & Chem 7: 04/15/18 05:13 04/15/18 05:13 Labs: Laboratory Results - last 24 hr 04/13/18 04/14/18 04/14/18 12:01 07:31 11:59 WBC RBC Hgb Hct MCV MCH MCHC RDW Plt Count MPV Immature Gran % Seg Neutrophils % Lymphocytes % Monocytes % Eosinophils % Basophils % Neutrophils # Lymphocytes # Monocytes # Eosinophils # Basophils # Sodium Potassium Chloride Carbon Dioxide BUN Creatinine Est GFR ( Amer) Est GFR (Non-Af Amer) BUN/Creatinine Ratio Glucose POC Glucose 180 H 108 H 105 H Calculated Osmolality Calcium Phosphorus Magnesium 04/14/18 04/14/18 04/15/18 16:38 20:24 05:13 WBC 7.4 RBC 3.49 L Hgb 10.6 L Hct 31.8 L MCV 91.1 MCH 30.4 MCHC 33.3 RDW 15.2 H Plt Count 279 MPV 9.8 Immature Gran % 0.8 Seg Neutrophils % 82.7 Lymphocytes % 14.9 Monocytes % 1.5 Eosinophils % 0.0 Basophils % 0.1 Neutrophils # 6.1 Lymphocytes # 1.1 Monocytes # 0.1 Eosinophils # 0.0 Basophils # 0.0 Sodium Potassium Chloride Carbon Dioxide BUN Creatinine Est GFR ( Amer) Est GFR (Non-Af Amer) BUN/Creatinine Ratio Glucose POC Glucose 292 H 197 H Calculated Osmolality Calcium Phosphorus Magnesium 04/15/18 04/15/18 05:13 07:30 WBC RBC Hgb Hct MCV MCH MCHC RDW Plt Count MPV Immature Gran % Seg Neutrophils % Lymphocytes % Monocytes % Eosinophils % Basophils % Neutrophils # Lymphocytes # Monocytes # Eosinophils # Basophils # Sodium 138 Potassium 4.4 D Chloride 107 Carbon Dioxide 18 L BUN 18 Creatinine 0.68 L Est GFR ( Amer) > 60 Est GFR (Non-Af Amer) > 60 BUN/Creatinine Ratio 26 Glucose 244 H POC Glucose 238 H Calculated Osmolality 296 Calcium 8.9 Phosphorus 3.5 Magnesium 2.1 Cultures: Cultures 04/13/18 01:15 Legionella Antigen - Final Urine,Clean Catch Streptococcus pneumoniae Antigen (M - Final 04/12/18 17:41 Blood Culture - Preliminary Peripheral Venipuncture Culture is incubating and being continuously monitored for growth. Final report to follow. 04/12/18 16:00 Blood Culture - Preliminary Peripheral Venipuncture Culture is incubating and being continuously monitored for growth. Final report to follow. Serology 04/13/18 04/12/18 Range/Units 13:25 14:30 Urine Color Yellow (Yellow) Urine Clarity Clear (Clear) Urine pH 6.0 (5.0-8.0) pH Units Ur Specific [place] > 1.030 H (1.010-1.025) Urine Protein Negative (Neg-Trace) mg/dL Urine Glucose (UA) >=1000 H (Normal) mg/dL Urine Ketones 15 H (Negative) mg/dL Urine Blood Trace H (Negative) Urine Nitrite Negative (Negative) Urine Bilirubin Negative (Negative) Urine Urobilinogen Normal (Normal) mg/dL Ur Leukocyte Esterase Negative (Negative) Urine Microscopic RBC 0-3 (0-3) per hpf Urine Microscopic WBC 0-3 (0-3) per hpf Ur Squamous Epith Cells None Seen (None-Few) per lpf Urine Bacteria None Seen (None-Few) per hpf Hyaline Casts None Seen (None-Few) per lpf Ur Culture Indicated? NO (NO) Chlamy pneumoniae PCR Not Detected (Not Detect) Adenovirus (PCR) Not Detected (Not Detect) B. pertussis DNA (PCR) Not Detected (Not Detect) B.parapertussis DNA PCR Not Detected (Not Detect) Coronavirus OC43 (PCR) Not Detected (Not Detect) Coronavirus HKU1 (PCR) Not Detected (Not Detect) Coronavirus 229E (PCR) Not Detected (Not Detect) Coronavirus NL63 (PCR) Not Detected (Not Detect) Human Metapneumovir PCR Not Detected (Not Detect) Influenza A (H1) PCR Not Detected (Not Detect) Influ A (H1N1/09) PCR Not Detected (Not Detect) Influenza A (H3) PCR Not Detected (Not Detect) Influenza A Untype (PCR) Not Detected (Not Detect) Influenza Type B (PCR) Not Detected (Not Detect) M.pneumoniae DNA (PCR) Not Detected (Not Detect) Parainfluenza 1 (PCR) Not Detected (Not Detect) Parainfluenza 2 (PCR) Not Detected (Not Detect) Parainfluenza 3 (PCR) Not Detected (Not Detect) Parainfluenza 4 (PCR) Not Detected (Not Detect) RSV (PCR) Not Detected (Not Detect) Entero/Rhino (PCR) Not Detected (Not Detect) - Impressions Impressions Echocardiogram 04/13/18 04:05 Impressions: LVEF 50-55%. Normal LV chamber size, wall thickness and function. Normal left ventricular diastolic function. Normal right ventricular structure and function. Mild tricuspid regurgitation. No evidence of pulmonary hypertension. Left Ventricular Wall Motion: Rest Echo Findings All wall segments showed normal motion. Findings: Study Quality * Technically adequate exam. ECG Findings * Normal sinus rhythm. Left Ventricle * LVEF 50-55%. * Normal LV chamber size, wall thickness and function. * Normal left ventricular diastolic function. Right Ventricle * Normal right ventricular structure and function. Left Atrium * Normal left atrial size. Right Atrium * Normal right atrial size. Interatrial Septum * Interatrial septum not well evaluated. Aortic Valve * Aortic valve not well visualized. * No aortic regurgitation. * No aortic stenosis. Mitral Valve * Normal mitral valve structure. * No mitral regurgitation. * No mitral stenosis. Tricuspid Valve * Normal tricuspid valve structure. * No tricuspid stenosis. * No evidence of pulmonary hypertension. * Mild tricuspid regurgitation. Pulmonic Valve * No pulmonic regurgitation. Aorta * Normally sized aortic root. Pericardium * The pericardium appears normal. IVC * The IVC is not well evaluated. Pulmonary Artery * Normal visualized portions of the main pulmonary artery. Exam - Constitutional Vitals: Temp Pulse Resp BP Pulse Ox 98.1 F 98 18 137/94 100 04/15/18 07:28 04/15/18 08:00 04/15/18 07:50 04/15/18 07:28 04/15/18 08:00 General appearance: average body habitus, cooperative, no acute distress - Head Head exam: Present: normocephalic. Absent: atraumatic (Abrasion noted to the right forehead.) - Eye Eye exam: Present: EOMI, normal appearance, PERRL - ENT ENT exam: Present: mucous membranes moist - Neck Neck exam: Present: normal inspection. Absent: meningismus, tenderness - Respiratory Respiratory exam: Present: CTAB. Absent: rales, respiratory distress, rhonchi, wheezes - Cardiovascular Cardiovascular exam: Present: RRR, +S1, +S2 - GI/Abdominal GI/Abdominal exam: Present: normal bowel sounds, soft. Absent: distended, tenderness - Extremities Exam Extremities exam: Absent: joint swelling, normal inspection (Abrasion noted to the left knee.), pedal edema, tenderness - Neurological Exam Neurological exam: Present: alert, oriented X3, no focal deficits - Psychiatric Psychiatric exam: Present: normal affect, normal mood - Skin Skin exam: Present: dry, intact, normal color, warm Consult Discharge Plan - Plan Instructions: Diabetes Mellitus Type 2 in Adults (DC), Pneumonia (DC) Referrals: Navjot Canela MD [Partnered Physician] - 04/22/18 1:45 pm Cyrus Coyne DO [Primary Care Provider] - 04/26/18 8:30 am (office said this is the only appointment they have) Prescriptions: Amoxicillin/Clavulanate [Augmentin] 875 mg PO BIDWM 7 Days #14 tablet RX: Azithromycin [Zithromax] 500 mg PO DAILY 7 Days #7 tablet predniSONE [PredniSONE] See Taper PO DAILY 12 Days #36 tablet - Attending Attestation I have personally performed a face to face evaluation on this patient. I have reviewed and agree with the care plan. History and Exam by me shows: Patient seen and examined. Clinically doing very well. Discussed with the pulmonary team. 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
[2018-04-15 11:21] VITALS: BP 126/71
[2018-04-15] MEDS ORDERED: Furosemide 20 MG/2 ML VIAL IVP ONE (11:26)
--- NOTE | 2018-04-15 13:03 | Neurology Progress Note ---
Date of Encounter: 04/15/18 Time of Encounter: 13:00 Assessment and Plan (1) Seizures Current Visit: Yes Status: Acute Continue Keppra 750mg bid. Follow up with Dr. Tj Ramos in 2-3 weeks. Patient refused EEG this time. May repeat or do prolonged EEG as out patient. This time, seizure not necessarily epileptic. Question of a non-epileptic event. Okay to discharge home from neurology perspective Subjective Principal diagnosis: SEIZURES Interval history: Patient seen and examined. he is doing well feeling back to baseline. Reports no further seizures. He is medically stable denies any specific discomforts Objective - Constitutional Vitals: Temp Pulse Resp BP Pulse Ox 98.4 F 79 16 126/71 99 04/15/18 11:18 04/15/18 11:18 04/15/18 11:20 04/15/18 11:18 04/15/18 11:20 - Neurological Exam Motor Examination: Present: grossly full strength in all extremities Motor examination - right side: 5/5: deltoids, biceps, triceps, wrist flexion, wrist extension, edger operator, hip flexors, tibialis Anterior, quadriceps, toe extension (EHL), plantarflexion Motor examination - left side: 5/5: deltoids, biceps, triceps, wrist flexion, wrist extension, hip flexors, edger operator, quadriceps, tibialis Anterior, toe extension (EHL), plantarflexion Sensation intact: Present: intact Reflex and gait examination: intact Reflexes: Biceps: 2+, Triceps: 2+, Brachioradialis: 2+, Patella: 2+, Achilles: 2+ Mental Status Examination: Present: awake, alert, oriented to person, oriented to place, oriented to time, follows commands appropriately, answers questions appropriately, no agnosia, no aphasia, no aproxia Cranial nerve examination: Present: PERRL, EOMI, visual casiano intact, corneal reflexes brisk symmetrically, sensory to face intact, mastication intact, no facial asymmetry is present, no dysarthria, hearing is intact symmetrically, soft palate elevates bilaterally upon phonation, gag reflex intact, flexes SCM and trapezius muscles symmetrically with full power, tongue protrudes midline, no atrophy or facial fasiculations present, taste anterior 2/3 tongue diminished Results - Laboratory Findings CBC and BMP: 04/15/18 05:13 04/15/18 05:13 Abnormal lab findings: Abnormal lab results RBC 3.49 M/mcL (4.19-5.50) L 04/15/18 05:13 Hgb 10.6 g/dL (12.9-16.9) L 04/15/18 05:13 Hct 31.8 % (37.5-50.1) L 04/15/18 05:13 RDW 15.2 % (11.5-14.5) H 04/15/18 05:13 D-Dimer 965 ng/mLFEU (0-500) H 04/13/18 11:36 ABG pCO2 34 mmHg (35-45) L 04/14/18 00:05 ABG pO2 57 mmHg (85-104) L 04/14/18 00:05 ABG O2 Saturation 90 % (95-98) L 04/14/18 00:05 VBG pH 7.43 pH Units (7.32-7.42) H 04/12/18 17:01 VBG pCO2 29 mmHg (41-51) L 04/12/18 17:01 VBG pO2 221 mmHg (25-50) H 04/12/18 17:01 VBG HCO3 20 mEq/L (21-27) L 04/12/18 17:01 Carbon Dioxide 18 mEq/L (23-29) L 04/15/18 05:13 Creatinine 0.68 mg/dL (0.70-1.30) L 04/15/18 05:13 Glucose 244 mg/dL (70-105) H 04/15/18 05:13 POC Glucose 238 mg/dL (70-99) H 04/15/18 07:30 Alkaline Phosphatase 204 Units/L (34-104) H 04/12/18 14:11 Troponin I 0.05 ng/mL (< 0.04) H* 04/13/18 08:40 B-Natriuretic Peptide 361 pg/mL (Less than 100) H 04/14/18 00:45 Ur Specific [place] > 1.030 (1.010-1.025) H 04/12/18 14:30 Urine Glucose (UA) >=1000 mg/dL (Normal) H 04/12/18 14:30 Urine Ketones 15 mg/dL (Negative) H 04/12/18 14:30 Urine Blood Trace (Negative) H 04/12/18 14:30 Consult Discharge Plan - Plan Referrals: Navjot Canela MD [Partnered Physician] - 04/22/18 1:45 pm Cyrus Coyne DO [Primary Care Provider] - 04/26/18 8:30 am (office said this is the only appointment they have)
--- NOTE | 2018-04-15 13:08 | Pulmonology Progress Note ---
Date of Encounter: 04/15/18 Time of Encounter: 09:00 Assessment and Plan (1) Acute respiratory failure with hypoxia Current Visit: Yes Status: Acute Patient presenting with acute hypoxic respiratory failure most likely secondary to pneumonia versus pulmonary edema will continue the current regimen of atypical antibiotic coverage leave the other antibiotic regimen to infectious disease. To continue oxygen supplementation to keep saturation above 94%. To keep nothing by mouth after midnight in case we need to do bronchoscopy tomorrow if his VQ mismatches getting worse since her V/Q mismatch is getting better is reasonable to treat has this atypical pneumonia with macrolides for now I will see him in 2 weeks in clinic. Pulmonary will continue to follow to do gentle diuresis as tolerated. Patient will need workup for his seizures and will need to close hospitalist management for for his uncontrolled hyperglycemia we will give her a short burst of steroids and his current blood pressure be closely monitored. 04/14 patient who started with almost 9-10 L of high flow nasal cannula oxygen now with his antibiotics and gentle diuresis patient is now in room air response most likely is infectious complicated by some hydrostatic pulmonary edema. Low probability for inflammatory causes like interstitial pneumonia or primary alveolar proteinosis. Patient declined bronchoscopy advance diet. We will see him in clinic in 2-4 weeks. Will need to week steroid taper and discharged to complete the full course of azithromycin for Legionella. According to infectious disease. (2) Pneumonia Current Visit: Yes Status: Acute Social suspected can be Legionella pneumonia with legionella antigen positive and with his bilateral groundglass with crazy prevent can be due to Legionella I highly doubt this is pulmonary alveolar proteinosis or interstitial pneumonia (oxygen requirement got better with just antibiotics. If his V/Q mismatch again worsen I told patient he might need bronchoscopy patient was reluctant to do bronchoscopy now but he was willing to do if the symptoms are not getting better. To finish the full course of antibiotics for Legionella we will leave it to infectious disease regarding de-escalating the broad-spectrum antibiotics. Based on clinical response. I highly doubt this is a inflammatory pneumonia mostly at like infectious complicated by a hydrostatic pulmonary edema. We will hold off bronchoscopy as patient declined currently. We will reevaluate him into toward weeks in outpatient with repeat imaging and we will talk further regarding possible bronchoscopy as an outpatient. Qualifiers: Pneumonia type: due to unspecified organism Laterality: bilateral Lung location: upper lobe of lung Qualified Code(s): J18.1 - Lobar pneumonia, unspecified organism Subjective Principal diagnosis: SEIZURES Interval history: Patient is doing well today say his shortness of breadth is lot better , presented with seizures and with worsening hyperglycemia oxygenation requirements coming down patient was put on empirical atypical coverage for suspected Legionella infection CT scan was significant for Bilateral groundglass opacity with Crazy pavement pattern concerning for atypical pneumonia versus pulmonary edema versus alveolar proteinosis versus interstitial pneumonia. Patient denies any other constitutional symptoms. 04/15 patient did not have any acute events overnight did well now he is on room air feeling lot better declined bronchoscopy Objective PUL Vital signs: Last Vital Signs Temp 98.4 F 04/15/18 11:18 Pulse 79 04/15/18 11:18 Resp 16 04/15/18 11:20 BP 126/71 04/15/18 11:18 Pulse Ox 99 04/15/18 11:20 General appearance: other Auscultation: bilateral: diminished breath sounds (basilar diminshed breadth sounds ) other (slightly lethargic than yesterday . ) Results - Laboratory Findings CBC and BMP: 04/15/18 05:13 04/15/18 05:13 ABG ABG pH 7.43 pH Units (7.32-7.45) 04/14/18 00:05 ABG pCO2 34 mmHg (35-45) L 04/14/18 00:05 ABG pO2 57 mmHg (85-104) L 04/14/18 00:05 ABG O2 Saturation 90 % (95-98) L 04/14/18 00:05 PT/INR, D-dimer D-Dimer 965 ng/mLFEU (0-500) H 04/13/18 11:36 Abnormal lab findings: Abnormal lab results RBC 3.49 M/mcL (4.19-5.50) L 04/15/18 05:13 Hgb 10.6 g/dL (12.9-16.9) L 04/15/18 05:13 Hct 31.8 % (37.5-50.1) L 04/15/18 05:13 RDW 15.2 % (11.5-14.5) H 04/15/18 05:13 D-Dimer 965 ng/mLFEU (0-500) H 04/13/18 11:36 ABG pCO2 34 mmHg (35-45) L 04/14/18 00:05 ABG pO2 57 mmHg (85-104) L 04/14/18 00:05 ABG O2 Saturation 90 % (95-98) L 04/14/18 00:05 VBG pH 7.43 pH Units (7.32-7.42) H 04/12/18 17:01 VBG pCO2 29 mmHg (41-51) L 04/12/18 17:01 VBG pO2 221 mmHg (25-50) H 04/12/18 17:01 VBG HCO3 20 mEq/L (21-27) L 04/12/18 17:01 Carbon Dioxide 18 mEq/L (23-29) L 04/15/18 05:13 Creatinine 0.68 mg/dL (0.70-1.30) L 04/15/18 05:13 Glucose 244 mg/dL (70-105) H 04/15/18 05:13 POC Glucose 238 mg/dL (70-99) H 04/15/18 07:30 Alkaline Phosphatase 204 Units/L (34-104) H 04/12/18 14:11 Troponin I 0.05 ng/mL (< 0.04) H* 04/13/18 08:40 B-Natriuretic Peptide 361 pg/mL (Less than 100) H 04/14/18 00:45 Ur Specific [place] > 1.030 (1.010-1.025) H 04/12/18 14:30 Urine Glucose (UA) >=1000 mg/dL (Normal) H 04/12/18 14:30 Urine Ketones 15 mg/dL (Negative) H 04/12/18 14:30 Urine Blood Trace (Negative) H 04/12/18 14:30 - Clinical Findings Intake & Output: Intake & Output 04/14/18 04/15/18 04/15/18 23:59 07:59 15:59 Intake Total 497.5 / 497.5 100 / 100 357.5 / 357.5 Output Total 180 / 180 250 / 250 150 / 150 Balance 317.5 / 317.5 -150 / -150 207.5 / 207.5 Weight 90.6 kg Consult Discharge Plan - Plan Referrals: Navjot Canela MD [Partnered Physician] - 04/22/18 1:45 pm Cyrus Coyne DO [Primary Care Provider] - 04/26/18 8:30 am (office said this is the only appointment they have)
--- NOTE | 2018-04-15 14:58 | Discharge Summary ---
- NOTES TO OUTPATIENT PROVIDER Notes to Outpatient Provider: Patient needs follow-up for diarrhea if continues to have consider testing for C. difficile as patient currently on antibiotics. Patient will need follow-up with pulmonology in 2-4 weeks. Also need follow-up with neurology in 2-3 weeks for possible EEG. Orders not resulted at time of discharge: Pending orders 04/12/18 16:00 Culture,Blood [BC] Stat 04/12/18 17:41 Culture,Blood [BC] Routine 04/15/18 11:23 Culture,Sputum with Gram Stain [RM] Routine 04/16/18 04:00 Basic Metabolic Panel AM 0400 CBC [Complete Blood Count] [HEME] AM 0400 Magnesium AM 0400 Phosphorous AM 0400 04/17/18 04:00 Basic Metabolic Panel AM 0400 CBC [Complete Blood Count] [HEME] AM 0400 Magnesium AM 0400 Phosphorous AM 0400 04/18/18 04:00 Basic Metabolic Panel AM 0400 CBC [Complete Blood Count] [HEME] AM 0400 Magnesium AM 0400 Phosphorous AM 0400 04/19/18 04:00 Basic Metabolic Panel AM 0400 CBC [Complete Blood Count] [HEME] AM 0400 Magnesium AM 0400 Phosphorous AM 0400 Date of Encounter: 04/15/18 Time of Encounter: 10:22 - Discharge Diagnosis (1) HHNC (hyperglycemic hyperosmolar nonketotic coma) Priority: Primary Status: Acute (2) Acute metabolic encephalopathy Priority: Primary Status: Acute (3) Seizure Priority: Primary Status: Acute (4) Community acquired bacterial pneumonia Priority: Primary Status: Acute (5) Diabetic ketoacidosis Priority: Primary Status: Acute Qualifiers: Diabetes mellitus type: type 2 Diabetes mellitus complication detail: without coma Qualified Code(s): E11.10 - Type 2 diabetes mellitus with ketoacidosis without coma (6) DVT prophylaxis Priority: Secondary Status: Acute (7) Coronary artery disease Priority: Secondary Status: Acute Qualifiers: Qualified Code(s): I25.10 - Atherosclerotic heart disease of [place] coronary artery without angina pectoris (8) Acute respiratory failure with hypoxia Priority: Primary Status: Acute (9) Acute kidney injury Priority: Primary Status: Acute (10) Elevated troponin Priority: Secondary Status: Acute Hospital course: Mr. Craig is a 62 year old male past medical history of diabetes, seizure disorder, diastolic CHF with some history of medication noncompliance came with episode of seizure and altered mental status.. Patient was also found to have hyperglycemic hyperosmolar nonketotic coma. The patient was also found to have elevated troponin. Patient was started on insulin drip. He was loaded with Keppra. Chest x-ray showed possible multifocal pneumonia and was started on Levaquin which was changed to Zosyn and azithromycin as urine legionella antigen came positive. CT was obtained which showed ARDS-like pattern. Neurology, cardiology and infectious disease was also consulted. Per cardiology no intervention was needed and likely had some demand ischemia. Patient refused MRI, EEG and bronchoscopy. Patient less likely had epileptic seizure per neurology and he will continue sun 50 mg twice a day Keppra. Patient would be discharged on Augmentin and azithromycin per infectious disease recommendation. Patient now completely alert and oriented. Patient wants to go home. Patient will be discharged with prednisone and antibiotics. Patient does have some episodes of diarrhea on discharge but he wants to go home and follow with PCP. Discharge discussed with: patient, nurse, portrait consultant - Time Spent with Patient Total time spent providing and/or coordinating discharge services: Greater than 30 minutes (40) - Discharge Medications Prescriptions: New Albuterol Sulfate [Albuterol Inhaler] 2 puff IH Q4H PRN inhaler PRN Reason: Shortness Of Breath Amoxicillin/Clavulanate [Augmentin] 875 mg PO BIDWM 7 Days #14 tablet Aspirin 81 mg PO DAILY tab.chew Atorvastatin [Lipitor] 40 mg PO HS tablet Azithromycin [Zithromax] 500 mg PO DAILY 7 Days #7 tablet Budesonide/Formoterol 160/4.5 [Symbicort 160/4.5] 2 puff IH BIDR inh Citalopram [CeleXA] 40 mg PO DAILY tablet Clopidogrel [Plavix] 75 mg PO DAILY tablet Metoprolol XL (24 HR) Succ [Toprol Xl] 100 mg PO DAILY tab.er.24h predniSONE [PredniSONE] See Taper PO DAILY 12 Days #36 tablet Continue Zolpidem [Ambien] 10 mg PO HS Oxycodone HCl [Roxybond] 15 mg PO Q4H PRN PRN Reason: Pain levETIRAcetam [Roweepra] 750 mg PO Q12H Insulin Degludec [Tresiba Flextouch U-200] 30 unit SQ DAILY Gabapentin 800 mg PO TID ALPRAZolam [Xanax 1 MG Tablet] 1 mg PO BID Acetaminophen [Tylenol] 1,000 mg PO DAILY PRN PRN Reason: Headache Ibuprofen [Ibu-200] 400 mg PO DAILY PRN PRN Reason: Headache Home Medications: ALPRAZolam [Xanax 1 MG Tablet] 1 mg PO BID 04/13/18 [History] Acetaminophen [Tylenol] 1,000 mg PO DAILY PRN 04/13/18 [History] Gabapentin 800 mg PO TID 04/13/18 [History] Ibuprofen [Ibu-200] 400 mg PO DAILY PRN 04/13/18 [History] Insulin Degludec [Tresiba Flextouch U-200] 30 unit SQ DAILY 04/13/18 [History] Oxycodone HCl [Roxybond] 15 mg PO Q4H PRN 04/13/18 [History] Zolpidem [Ambien] 10 mg PO HS 04/13/18 [History] levETIRAcetam [Roweepra] 750 mg PO Q12H 04/13/18 [History] Albuterol Sulfate [Albuterol Inhaler] 2 puff IH Q4H PRN inhaler 04/15/18 [Rx] Amoxicillin/Clavulanate [Augmentin] 875 mg PO BIDWM 7 Days #14 tablet 04/15/18 [Rx] Aspirin 81 mg PO DAILY tab.chew 04/15/18 [Rx] Atorvastatin [Lipitor] 40 mg PO HS tablet 04/15/18 [Rx] Azithromycin [Zithromax] 500 mg PO DAILY 7 Days #7 tablet 04/15/18 [Rx] Budesonide/Formoterol 160/4.5 [Symbicort 160/4.5] 2 puff IH BIDR inh 04/15/18 [Rx] Citalopram [CeleXA] 40 mg PO DAILY tablet 04/15/18 [Rx] Clopidogrel [Plavix] 75 mg PO DAILY tablet 04/15/18 [Rx] Metoprolol XL (24 HR) Succ [Toprol Xl] 100 mg PO DAILY tab.er.24h 04/15/18 [Rx] predniSONE [PredniSONE] See Taper PO DAILY 12 Days #36 tablet 04/15/18 [Rx] Allergies/Adverse Reactions: Allergy/AdvReac Type Severity Reaction Status Date / Time codeine AdvReac Vomiting, Verified 04/13/18 19:03 NAUSEA Date of admission: 04/12/18 20:08 Primary care physician: Cyrus Coyne DO Consults: 04/12/18 16:39 Consult to Neurology [CONS] Stat Consulting Provider: Neurology [facility] Reason for Consult: Seizure Call Completed: Yes 04/12/18 23:38 Consult to Diabetes Education [CONS] Routine Comment: Reason for Consult: non-compliance 04/12/18 23:49 Consult to St[employer] Machine Operator Helper [CONS] Routine Reason for SW Consult: medication non-compliance 04/13/18 08:29 Consult to Cardiology [CONS] Routine Comment: Consulting Provider: Cardiology [facility] Reason for Consult: elevated troponin r/o mi Call Completed: No 04/13/18 08:34 Consult to Nurse Navigator [CONS] Routine Comment: pneumonia 04/13/18 11:27 Consult to Pulmonology [CONS] Routine Consulting Provider: [facility] Reason for Consult: acute hypoxic resp failure with possible ARDS Call Completed: Yes 04/14/18 10:41 Consult to Infectious Diseases [CONS] Routine Consulting Provider: Infectious Disease [facility] Reason for Consult: antibiotic guidance Call Completed: Yes Discharging clinician: Ayanna Doll - Constitutional Vitals: Temp Pulse Resp BP Pulse Ox 98.4 F 79 16 126/71 99 04/15/18 11:18 04/15/18 11:18 04/15/18 11:20 04/15/18 11:18 04/15/18 11:20 Exam: General: In no acute distress. Respiratory exam: crackles at base bilaterally. no accessory muscle use, rales, rhonchi, wheezes Cardiovascular exam: RRR, +S1, +S2. no murmur, gallop, rubs. GI/Abdominal exam: Non-tender, Non-distended, normal bowel sounds, soft, no peritoneal signs. Extremities exam: full ROM, no pedal edema, warm, pulses palpable in b/l lower extremities. no calf tenderness Neurological exam: AOx3, cranial nose intact. No focal deficits. Following commands. Skin exam: No skin rash, ulcer, purpura or ecchymosis. - Patient Status Disposition: Home, Self-Care Condition: Fair - Discharge Instructions Follow Up With: Navjot Canela MD [Partnered Physician] - 04/22/18 1:45 pm Cyrus Coyne DO [Primary Care Provider] - 04/26/18 8:30 am (office said this is the only appointment they have)
--- NOTE | 2018-04-15 15:34 | Physician Discharge Referral ---
Home Health/Hosp Referral Info Transfer to: Home Health - Diagnosis (1) HHNC (hyperglycemic hyperosmolar nonketotic coma) Status: Acute (2) Acute metabolic encephalopathy Status: Acute (3) Seizure Status: Acute (4) Community acquired bacterial pneumonia Status: Acute (5) Diabetic ketoacidosis Status: Acute (6) DVT prophylaxis Status: Acute (7) Coronary artery disease Status: Acute (8) Acute respiratory failure with hypoxia Status: Acute (9) Acute kidney injury Status: Acute (10) Elevated troponin Status: Acute - Respiratory Orders Smoking Cessation: Smoking cessation has been advised. For more information, call the [place] Tobacco Quit Line at 3-736-ILVFNOW. - Services Needed Following services are medically necessary services: Nursing - Transfer Medications Prescriptions: Amoxicillin/Clavulanate [Augmentin] 875 mg PO BIDWM 7 Days #14 tablet Azithromycin [Zithromax] 500 mg PO DAILY 7 Days #7 tablet predniSONE [PredniSONE] See Taper PO DAILY 12 Days #36 tablet Home Medications: ALPRAZolam [Xanax 1 MG Tablet] 1 mg PO BID 04/13/18 [History] Acetaminophen [Tylenol] 1,000 mg PO DAILY PRN 04/13/18 [History] Gabapentin 800 mg PO TID 04/13/18 [History] Ibuprofen [Ibu-200] 400 mg PO DAILY PRN 04/13/18 [History] Insulin Degludec [Tresiba Flextouch U-200] 30 unit SQ DAILY 04/13/18 [History] Oxycodone HCl [Roxybond] 15 mg PO Q4H PRN 04/13/18 [History] Zolpidem [Ambien] 10 mg PO HS 04/13/18 [History] levETIRAcetam [Roweepra] 750 mg PO Q12H 04/13/18 [History] Albuterol Sulfate [Albuterol Inhaler] 2 puff IH Q4H PRN inhaler 04/15/18 [Rx] Amoxicillin/Clavulanate [Augmentin] 875 mg PO BIDWM 7 Days #14 tablet 04/15/18 [Rx] Aspirin 81 mg PO DAILY tab.chew 04/15/18 [Rx] Atorvastatin [Lipitor] 40 mg PO HS tablet 04/15/18 [Rx] Azithromycin [Zithromax] 500 mg PO DAILY 7 Days #7 tablet 04/15/18 [Rx] Budesonide/Formoterol 160/4.5 [Symbicort 160/4.5] 2 puff IH BIDR inh 04/15/18 [Rx] Citalopram [CeleXA] 40 mg PO DAILY tablet 04/15/18 [Rx] Clopidogrel [Plavix] 75 mg PO DAILY tablet 04/15/18 [Rx] Metoprolol XL (24 HR) Succ [Toprol Xl] 100 mg PO DAILY tab.er.24h 04/15/18 [Rx] predniSONE [PredniSONE] See Taper PO DAILY 12 Days #36 tablet 04/15/18 [Rx] Allergies/Adverse Reactions: Allergy/AdvReac Type Severity Reaction Status Date / Time codeine AdvReac Vomiting, Verified 04/13/18 19:03 NAUSEA Certification: Further, I certify that my clinical findings support that this patient is homebound (i.e. absences from home require considerable and taxing effort and are for medical reasons or [employer] or infrequently or short duration when for other reasons) because: Homebound Reason: Patient requires assistance of a person or device to safely le ave home Attestation: My signature below is to certify that this patient is under my care and that I, or nurse practitioner, or a physician's practice assistant working with me, has a [id number] encounter with this patient.
[2018-04-15] MEDS ORDERED: levETIRAcetam 250 MG TABLET PO SCH (21:00)
[2018-04-16] MEDS ORDERED: Azithromycin 250 MG TABLET PO SCH (09:00)
== END 2018-04-15 15:59 | disposition home health service (06) | DRG 871 ==
LOC: EMEROOARM 13:44 → SUATTDRO 20:08 → 2NNU 20:08
PROVIDERS: ADMIT Internal Medicine; ATTEND Internal Medicine

== ENCOUNTER 2018-07-31 18:58 | Observation (INO) ==
[2018-07-31] MEDS ORDERED: *HR* LORazepam 2 MG/ML VIAL ONE ×2 (19:01→19:05)
[2018-07-31] MEDS ORDERED: *HR* LORazepam 1 MG TABLET PO ONE (19:12)
[2018-07-31] MEDS ORDERED: *HR* LORazepam 2 MG/ML VIAL IVP ONE ×2 (19:12→19:14)
[2018-07-31] MEDS ORDERED: levETIRAcetam 1,000 MG in 0.9 % Sodium Chloride 100 ML IVPB ONE (19:13)
[2018-07-31 19:41] LABS: Basophils # 0.1 K/mcL (0.0-0.2); Basophils % 0.7 %; Eosinophils # 0.1 K/mcL (0.0-0.6); Eosinophils % 0.9 %; Immature Granulocytes % 0.3 % (0-4); Lymphocytes # 3.8 K/mcL (0.6-4.6); Lymphocytes % 30.1 %; Mean Corpuscular HGB Conc 34.2 g/dL (31.6-35.5); Mean Corpuscular Hemoglobin 31.3 pg (28.0-33.3); Mean Corpuscular Volume 91.3 fL (83.0-100.0); Mean Platelet Volume 9.9 fL (9.4-12.4); Monocytes # 0.6 K/mcL (0.0-1.3); Monocytes % 4.3 %; Neutrophils # 8.1 K/mcL (1.6-8.9); Platelet Count 260 K/mcL (140-400); Red Blood Count 4.16 M/mcL (4.19-5.50); Red Cell Distribution Width 14.2 % (11.5-14.5); Segmented Neutrophils % 63.7 %; White Blood Count 12.7 K/mcL (4.3-11.1)
[2018-07-31 19:44] LABS: Bilirubin,Urine Negative (Negative); Blood,Urine Moderate (Negative); Clarity,Urine Clear (Clear); Color,Urine Yellow (Yellow); Glucose,Urine (UA) >=1000 mg/dL (Normal); Ketones,Urine Negative (Negative); Leukocyte Esterase,Urine Negative (Negative); Nitrite,Urine Negative (Negative); PH,Urine 6.5 pH Units (5.0-8.0); Protein,Urine 30 mg/dL (Neg-Trace); Specific Gravity,Urine > 1.030 (1.010-1.025); Urobilinogen,Urine Normal (Normal)
[2018-07-31 19:45] LABS: Bacteria,Urine None Seen per hpf (None-Few); Hyaline Casts,Urine None Seen per lpf (None-Few); RBC,Urine 15-30 per hpf (0-3); Squamous Epithelial Cell,Urine Many per lpf (None-Few); WBC,Urine 0-3 per hpf (0-3)
--- NOTE | 2018-07-31 19:47 | Emergency Department Note ---
Disposition Clinical Impression: Status epilepticus, Altered level of consciousness Pneumonia Qualifiers: Pneumonia type: due to unspecified organism Laterality: left Lung location: unspecified part of lung Qualified Code(s): J18.9 - Pneumonia, unspecified organism Disposition: Admitted As Inpatient Condition: Fair Time of Disposition: 20:34 General Adult HPI - General Chief complaint: ED Seizure Stated complaint: seizure Time Seen by Provider: 07/31/18 19:08 Source: EMS Limitations: altered mental status, other Nursing Notes Reviewed: Yes Vital Signs Reviewed: Yes - History of Present Illness HPI Narrative: I did see the patient immediately upon arrival as well as spoke with the paramedics do tell me that the patient was seizing for about 45 minutes before they arrived and they have been unable to place an IV. No medication has been given. The patient does have a history of seizures I did speak with the family includes the daughter and her and they tell me the patient has been prescribed Keppra but has not been able to afford it so has stopped taking it. I did review the previous record with multiple ED visits for seizures. They deny any history of pseudoseizures. They deny any history of trauma. The patient does not use substances. He is unable to give any history secondary to his medical condition of actively seizing when I initially saw him Pain Scale: 0 - Related Data Home Medications Medication Instructions Recorded Confirmed ALPRAZolam [Xanax 1 MG Tablet] 1 mg PO BID 04/13/18 04/13/18 Acetaminophen [Tylenol] 1,000 mg PO DAILY PRN 04/13/18 04/13/18 Gabapentin 800 mg PO TID 04/13/18 04/13/18 Ibuprofen [Ibu-200] 400 mg PO DAILY PRN 04/13/18 04/13/18 Insulin Degludec [Tresiba 30 unit SQ DAILY 04/13/18 04/13/18 Flextouch U-200] Oxycodone HCl [Roxybond] 15 mg PO Q4H PRN 04/13/18 04/13/18 Zolpidem [Ambien] 10 mg PO HS 04/13/18 04/13/18 levETIRAcetam [Roweepra] 750 mg PO Q12H 04/13/18 04/13/18 Previous Rx's Medication Instructions Recorded Albuterol Sulfate [Albuterol 2 puff IH Q4H PRN inhaler 04/15/18 Inhaler] Aspirin 81 mg PO DAILY tab.chew 04/15/18 Atorvastatin [Lipitor] 40 mg PO HS tablet 04/15/18 Budesonide/Formoterol 160/4.5 2 puff IH BIDR inh 04/15/18 [Symbicort 160/4.5] Citalopram [CeleXA] 40 mg PO DAILY tablet 04/15/18 Clopidogrel [Plavix] 75 mg PO DAILY tablet 04/15/18 Metoprolol XL (24 HR) Succ [Toprol 100 mg PO DAILY tab.er.24h 04/15/18 Xl] LevETIRAcetam [Keppra] 750 mg PO BID #28 tablet 07/10/18 Allergies Allergy/AdvReac Type Severity Reaction Status Date / Time No Known Allergies Allergy Verified 07/31/18 19:01 Limitations: ROS unobtainable due to patients medical condition Past Medical History - Past Medical History Medical history: Reports: arthritis, asthma, CHF, COPD, coronary artery disease, CVA, diabetes, GERD, hyperlipidemia, hypertension, myocardial infarction, peripheral artery disease, seizures, other Surgical history: Reports: angioplasty/stent, cholecystectomy, herniorrhaphy, knee replacement, orthopedic, other, other Psychiatric history: Reports: anxiety, depression, other - Social History Smoking Status: Current every day smoker Smokeless Tobacco Status: No Alcohol use: Reports: recent Drug use: Reports: none Physical Exam CONSTITUTIONAL/NEURO: Patient shaking of arms and legs but in a regular type fashion, intermittent myoclonic jerks of the entire body intermittently shaking of the right arm, he does blink when I tickled the eyelashes on either side. There is a left facial droop which is chronic HEAD: Normocephalic; atraumatic. EYES: PERRL, no scleral icterus. NOSE: The nose is normal in appearance without rhinorrhea RESP: Normal chest excursion with respiration; breath sounds clear and equal bilaterally; no wheezes, rhonchi, or rales CARD: Regular rhythm, without murmurs, rub or gallop ABD: Non-distended; non-tender, soft,without rigidity, rebound or guarding SKIN: Normal for age and race; warm and dry; no apparent lesions - General Limitations: altered mental status, other Course Vital Signs Temperature 98.8 F 07/31/18 19:02 Pulse Rate 111 06/08/19 19:02 Respiratory Rate 20 07/31/18 19:02 Blood Pressure 219/191 07/31/18 19:02 O2 Sat by Pulse Oximetry 100 07/31/18 19:02 Temperature 98.8 F 07/31/18 19:02 Pulse Rate 106 07/31/18 19:26 Respiratory Rate 20 07/31/18 19:26 Blood Pressure 155/94 07/31/18 19:26 O2 Sat by Pulse Oximetry 97 07/31/18 19:26 Oxygen Delivery Oxygen Delivery Nasal Cannula Medical Decision Making - MDM Narrative Medical decision making narrative: Patient did receive Ativan 2 mg IV and then with improvement in the seizure but still having shaking activity he received another 2 mg of Ativan IV. Maintaining oxygen saturation with sat 98% on oxygen. The patient's did stop seizing and is now talking was able to tell me his name the does have a chronic left facial droop and he is given aorta for Keppra 1 g IV, and also getting a head CT because he does have a history of aneurysms the previous head CTs recently have been negative. I have been back to evaluate the patient multiple times. Maintaining oxygenation so does not need intubated. He do not have any vomiting and I spoke with the family they said that he had driven to their house and they were visiting and then he started seizing after dinner. No history of any fall or injuries. 1946 I did review the patient's EKG showing sinus tachycardia with a rate of 112 bpm and with nonspecific ST change but without evidence of significant arrhythmia 2014 I did go back and reassessed the patient several additional occasions including about 10 minutes ago. He is now able to speak but he does have generalized weakened appearance and he does have significant lab abnormalities including hyperglycemia and acidosis. Will receive IV fluids. The patient will be admitted to the hospital. I did write for intravenous Keppra. He is maintaining good oxygen saturation. 2030 I did review the patient's imaging and the CT scan of the brain is negative. He does have what appears to be a new left sided pulmonary infiltrate the patient will be treated with vancomycin and Zosyn as he has had recent hospital visits. He did recently have a diagnosis of HHS and I do have a VBG ordered and results are pending but the patient will be admitted to the hospitalist. 2031 I did speak with the hospitalist who except the patient but would like to have the patient observed here for another 20 minutes until 945 to make sure he does not have another seizure. I should note that the patient is completing his dose of Keppra. I should also note that the patient is not acidotic regarding the blood sugar. 2124 No further seizure activity and the patient will be admitted to the hospitalist. 2145 - Medical Records Medical records reviewed: Yes I reviewed the patient's medical records. - Lab Data Lab results reviewed: Yes I reviewed the patient's lab results. Result diagrams: 07/31/18 19:06 07/31/18 19:06 Lab Results 07/31/18 07/31/18 07/31/18 Range/Units 19:06 19:06 19:34 WBC 12.7 H (4.3-11.1) K/mcL RBC 4.16 L (4.19-5.50) M/mcL Hgb 13.0 (12.9-16.9) g/dL Hct 38.0 (37.5-50.1) % MCV 91.3 (83.0-100.0) fL MCH 31.3 (28.0-33.3) pg MCHC 34.2 (31.6-35.5) g/dL RDW 14.2 (11.5-14.5) % Plt Count 260 (140-400) K/mcL MPV 9.9 (9.4-12.4) fL Immature Gran % 0.3 (0-4) % Seg Neutrophils % 63.7 % Lymphocytes % 30.1 % Monocytes % 4.3 % Eosinophils % 0.9 % Basophils % 0.7 % Neutrophils # 8.1 (1.6-8.9) K/mcL Lymphocytes # 3.8 (0.6-4.6) K/mcL Monocytes # 0.6 (0.0-1.3) K/mcL Eosinophils # 0.1 (0.0-0.6) K/mcL Basophils # 0.1 (0.0-0.2) K/mcL VBG pH (7.32-7.42) pH Units VBG pCO2 (41-51) mmHg VBG pO2 (25-50) mmHg VBG HCO3 (21-27) mEq/L Sodium 134 L (136-145) mEq/L Potassium 4.0 (3.5-5.1) mEq/L Chloride 93 L (98-107) mEq/L Carbon Dioxide 29 (23-29) mEq/L BUN 5 L (8-23) mg/dL Creatinine 0.77 (0.70-1.30) mg/dL Est GFR ( Amer) > 60 (> 60) Est GFR (Non-Af Amer) > 60 (> 60) BUN/Creatinine Ratio 6 (6-26) Glucose 518 H* (70-105) mg/dL Calculated Osmolality 299 (280-300) Calcium 9.5 (8.6-10.3) mg/dL Total Bilirubin 0.4 (0.3-1.0) mg/dL Direct Bilirubin 0.0 (0.0-0.2) mg/dL Indirect Bilirubin 0.4 (0.0-1.2) mg/dL AST 9 L (13-39) Units/L ALT 8 (7-52) Units/L Alkaline Phosphatase 170 H (34-104) Units/L Ammonia (16-53) mcmol/L Troponin I < 0.03 (< 0.04) ng/mL Serum Total Protein 6.6 (6.4-8.9) g/dL Albumin 3.9 (3.5-5.7) g/dL Globulin 2.7 (2.4-3.5) g/dL Albumin/Globulin Ratio 1.4 (1.1-2.2) Urine Color Yellow (Yellow) Urine Clarity Clear (Clear) Urine pH 6.5 (5.0-8.0) pH Units Ur Specific [place] > 1.030 H (1.010-1.025) Urine Protein 30 H (Neg-Trace) mg/dL Urine Glucose (UA) >=1000 H (Normal) mg/dL Urine Ketones Negative (Negative) mg/dL Urine Blood Moderate H (Negative) Urine Nitrite Negative (Negative) Urine Bilirubin Negative (Negative) Urine Urobilinogen Normal (Normal) mg/dL Ur Leukocyte Esterase Negative (Negative) Urine Microscopic RBC 15-30 H (0-3) per hpf Urine Microscopic WBC 0-3 (0-3) per hpf Ur Squamous Epith Cells Many H (None-Few) per lpf Urine Bacteria None Seen (None-Few) per hpf Hyaline Casts None Seen (None-Few) per lpf Ur Culture Indicated? NO (NO) Urine Opiates Screen (Xufyjm=676) ng/mL Ur Barbiturates Screen (Fthchk=702) ng/mL Ur Phencyclidine Scrn (Cutoff=25) ng/mL Ur Amphetamines Screen (Ewohbx=0399) ng/mL U Benzodiazepines Scrn (Xdfhei=570) ng/mL Urine Cocaine Screen (Cutoff= 300) ng/mL U Marijuana (THC) Screen (Cutoff = 50) ng/mL Ur Drug Screen Interp Ethyl Alcohol < 10 (Less than 10) mg/dL 07/31/18 07/31/18 07/31/18 Range/Units 19:34 19:54 20:45 WBC (4.3-11.1) K/mcL RBC (4.19-5.50) M/mcL Hgb (12.9-16.9) g/dL Hct (37.5-50.1) % MCV (83.0-100.0) fL MCH (28.0-33.3) pg MCHC (31.6-35.5) g/dL RDW (11.5-14.5) % Plt Count (140-400) K/mcL MPV (9.4-12.4) fL Immature Gran % (0-4) % Seg Neutrophils % % Lymphocytes % % Monocytes % % Eosinophils % % Basophils % % Neutrophils # (1.6-8.9) K/mcL Lymphocytes # (0.6-4.6) K/mcL Monocytes # (0.0-1.3) K/mcL Eosinophils # (0.0-0.6) K/mcL Basophils # (0.0-0.2) K/mcL VBG pH 7.43 H (7.32-7.42) pH Units VBG pCO2 41 (41-51) mmHg VBG pO2 150 H (25-50) mmHg VBG HCO3 27 (21-27) mEq/L Sodium (136-145) mEq/L Potassium (3.5-5.1) mEq/L Chloride (98-107) mEq/L Carbon Dioxide (23-29) mEq/L BUN (8-23) mg/dL Creatinine (0.70-1.30) mg/dL Est GFR ( Amer) (> 60) Est GFR (Non-Af Amer) (> 60) BUN/Creatinine Ratio (6-26) Glucose (70-105) mg/dL Calculated Osmolality (280-300) Calcium (8.6-10.3) mg/dL Total Bilirubin (0.3-1.0) mg/dL Direct Bilirubin (0.0-0.2) mg/dL Indirect Bilirubin (0.0-1.2) mg/dL AST (13-39) Units/L ALT (7-52) Units/L Alkaline Phosphatase (34-104) Units/L Ammonia 41 (16-53) mcmol/L Troponin I (< 0.04) ng/mL Serum Total Protein (6.4-8.9) g/dL Albumin (3.5-5.7) g/dL Globulin (2.4-3.5) g/dL Albumin/Globulin Ratio (1.1-2.2) Urine Color (Yellow) Urine Clarity (Clear) Urine pH (5.0-8.0) pH Units Ur Specific [place] (1.010-1.025) Urine Protein (Neg-Trace) mg/dL Urine Glucose (UA) (Normal) mg/dL Urine Ketones (Negative) mg/dL Urine Blood (Negative) Urine Nitrite (Negative) Urine Bilirubin (Negative) Urine Urobilinogen (Normal) mg/dL Ur Leukocyte Esterase (Negative) Urine Microscopic RBC (0-3) per hpf Urine Microscopic WBC (0-3) per hpf Ur Squamous Epith Cells (None-Few) per lpf Urine Bacteria (None-Few) per hpf Hyaline Casts (None-Few) per lpf Ur Culture Indicated? (NO) Urine Opiates Screen Positive H (Ixjves=695) ng/mL Ur Barbiturates Screen Negative (Kmency=365) ng/mL Ur Phencyclidine Scrn Negative (Cutoff=25) ng/mL Ur Amphetamines Screen Negative (Mqnipg=6492) ng/mL U Benzodiazepines Scrn Negative (Exzgeo=491) ng/mL Urine Cocaine Screen Negative (Cutoff= 300) ng/mL U Marijuana (THC) Screen Negative (Cutoff = 50) ng/mL Ur Drug Screen Interp See Below Ethyl Alcohol (Less than 10) mg/dL - Radiology Data Radiology results reviewed: Yes I reviewed the patient's radiology results. Critical Care Time Critical Care Time: Yes Total Critical Care Time: 45 Attestation: Patient presents in status epilepticus and management of these seizures including 2 doses of 2 mg each of Ativan, IV Keppra, multiple reassessments, evaluation and management of pneumonia as well as discussed with the hospitalist and admission and multiple discussions with the family
[2018-07-31 19:48] LABS: Alanine Aminotransferase 8 Units/L (7-52); Albumin 3.9 g/dL (3.5-5.7); Albumin/Globulin Ratio 1.4 (1.1-2.2); Alkaline Phosphatase 170 Units/L (34-104); Aspartate Amino Transferase 9 Units/L (13-39); BUN/Creatinine Ratio 6 (6-26); Bilirubin,Indirect 0.4 mg/dL (0.0-1.2); Bilirubin,Total 0.4 mg/dL (0.3-1.0); Blood Urea Nitrogen 5 mg/dL (8-23); Calcium 9.5 mg/dL (8.6-10.3); Carbon Dioxide 29 mEq/L (23-29); Chloride 93 mEq/L (98-107); Ethanol < 10 mg/dL (Less than 10); Globulin 2.7 g/dL (2.4-3.5); Glucose 518 mg/dL (70-105); Osmolality,Calculated 299 (280-300); Sodium 134 mEq/L (136-145); Total Protein 6.6 g/dL (6.4-8.9); Troponin I < 0.03 ng/mL (< 0.04); eGFR For African Americans > 60 (> 60); eGFR For Non-African Americans > 60 (> 60)
[2018-07-31] MEDS ORDERED: Piperacillin/Tazobactam 3.375 GM in 0.9 % Sodium Chloride Mini Bag 100 ML IVPB ONE (20:35)
[2018-07-31] MEDS ORDERED: Insulin Human Regular 10 UNIT in 0.9 % Sodium Chloride 10 ML IV ONE (20:36)
[2018-07-31] MEDS ORDERED: Ondansetron 4 MG/2 ML VIAL IVP ONE (20:45)
[2018-07-31] MEDS ORDERED: *HR* FentaNYL (PF) 100 MCG/2 ML VIAL IVP ONE (20:45)
[2018-07-31 20:47] LABS: VBG HCO3 27 mEq/L (21-27); VBG PCO2 41 mmHg (41-51); VBG PH 7.43 pH Units (7.32-7.42); VBG PO2 150 mmHg (25-50)
[2018-07-31 21:11] LABS: Amphetamine Screen,Urine Negative ng/mL (Cutoff=1000); Barbiturate Screen,Urine Negative ng/mL (Cutoff=200); Benzodiazepines Screen,Urine Negative ng/mL (Cutoff=200); Cannabinoid Screen,Urine Negative ng/mL (Cutoff = 50); Cocaine Screen,Urine Negative ng/mL (Cutoff= 300); Opiate Screen,Urine Positive ng/mL (Cutoff=300); Phencyclidine Screen,Urine Negative ng/mL (Cutoff=25)
[2018-07-31] MEDS: 0.9 % Sodium Chloride 1,000 ML IVC SCH (21:47)
[2018-08-01] MEDS ORDERED: Ondansetron 4 MG/2 ML VIAL IVP PRN (00:28)
[2018-08-01] MEDS ORDERED: Naloxone 0.4 MG/ML INJ IVP PRN (00:28)
[2018-08-01] MEDS ORDERED: *HR* Dextrose 50 % in Water (Syg) 50 ML SYRINGE IVP PRN (00:31)
[2018-08-01] MEDS ORDERED: D5% in Water 1,000 ML IVC PRN (00:31)
[2018-08-01] MEDS ORDERED: Dextrose Gel 15 GM/37.5 ML TUBE PO PRN ×2 (00:31)
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
[2018-08-01] MEDS ORDERED: *HR* LORazepam 2 MG/ML VIAL IVP PRN (00:33)
[2018-08-01] MEDS ORDERED: Insulin DETEMIR 100 UNIT/ML X5UNITS SQ SCH (00:45)
[2018-08-01 02:17] LABS: Basophils # 0.1 K/mcL (0.0-0.2); Basophils % 0.6 %; Eosinophils # 0.2 K/mcL (0.0-0.6); Eosinophils % 1.2 %; Hematocrit 31.7 % (37.5-50.1); Hemoglobin 10.6 g/dL (12.9-16.9); Immature Granulocytes % 0.3 % (0-4); Lymphocytes # 3.8 K/mcL (0.6-4.6); Lymphocytes % 31.4 %; Mean Corpuscular HGB Conc 33.4 g/dL (31.6-35.5); Mean Corpuscular Hemoglobin 31.1 pg (28.0-33.3); Mean Platelet Volume 9.6 fL (9.4-12.4); Monocytes # 0.6 K/mcL (0.0-1.3); Monocytes % 4.8 %; Neutrophils # 7.5 K/mcL (1.6-8.9); Platelet Count 204 K/mcL (140-400); Red Blood Count 3.41 M/mcL (4.19-5.50); Red Cell Distribution Width 14.2 % (11.5-14.5); Segmented Neutrophils % 61.7 %; White Blood Count 12.2 K/mcL (4.3-11.1)
[2018-08-01 02:37] LABS: Alanine Aminotransferase 6 Units/L (7-52); Albumin/Globulin Ratio 1.6 (1.1-2.2); Alkaline Phosphatase 119 Units/L (34-104); Aspartate Amino Transferase 8 Units/L (13-39); BUN/Creatinine Ratio 11 (6-26); Bilirubin,Total 0.3 mg/dL (0.3-1.0); Blood Urea Nitrogen 6 mg/dL (8-23); Carbon Dioxide 25 mEq/L (23-29); Chloride 108 mEq/L (98-107); Globulin 1.9 g/dL (2.4-3.5); Glucose 207 mg/dL (70-105); Magnesium 1.4 mg/dL (1.6-2.6); Osmolality,Calculated 290 (280-300); Phosphorous 3.3 mg/dL (2.7-4.5); Potassium 3.6 mEq/L (3.5-5.1); Sodium 138 mEq/L (136-145); Total Protein 4.9 g/dL (6.4-8.9); eGFR For African Americans > 60 (> 60); eGFR For Non-African Americans > 60 (> 60)
[2018-08-01 03:13] LABS: Creatine Kinase 36 Units/L (30-223)
[2018-08-01] MEDS ORDERED: Insulin LISPRO 300 UNITS/3 ML VIAL SQ SCH (06:00)
[2018-08-01] MEDS ORDERED: levETIRAcetam 250 MG TABLET PO SCH (06:00)
[2018-08-01] MEDS: *HR* Heparin 5,000 UNIT/ML VIAL SQ SCH ×2 (06:31→06:35)
[2018-08-01 07:12] LABS: Estimated Average Glucose 286 mg/dl; Hemoglobin A1C 11.6 %
[2018-08-01 08:09] VITALS: BP 155/94
[2018-08-01] MEDS ORDERED: *HR* HYDROmorphone 4 MG TABLET PO ONE (09:19)
--- NOTE | 2018-08-01 09:57 | Discharge Summary ---
- NOTES TO OUTPATIENT PROVIDER Notes to Outpatient Provider: Will need SW follow up to assist him with medications. Refused to stay inpatient for one more day to see them in the hospital. Repeat CXR 4-6 weeks to ensure resolution of PNA. Orders not resulted at time of discharge: Pending orders 07/31/18 19:11 ECG 12 lead ECG [ECG] Stat Date of Encounter: 08/01/18 Time of Encounter: 07:30 - Discharge Diagnosis (1) Seizure Priority: Primary Status: Acute (2) Leukocytosis Priority: Secondary Status: Acute Qualifiers: Leukocytosis type: unspecified Qualified Code(s): D72.829 - Elevated white blood cell count, unspecified (3) Hyperglycemia Priority: Secondary Status: Acute (4) DVT prophylaxis Priority: Secondary Status: Acute Hospital course: Mr. Craig is a 62 year old male with history of diabetes, CAD, COPD, seizure, chronic pain on dilaudid 8mg TID as outpatient, medication non-compliance other than for opioids, was admitted for an episode of seizure and hyperglycemia. Quickly improved with SQ insulin. Due to the issue with non-compliance and potential financial issue for affording meds, SW consult was recommended to the patient but he declined to stay another night to speak to them and wanted to be discharged. Of note, he had leukocytosis and CXR finding of L mid zone consolidation. Although he did not have much pulmonary symptoms nor significant sputum production, given his recurrent episodes of seizure, he will be discharged with 7 day course of PO Augmentin. He will need outpatient imaging to ensure resolution of PNA. Discharge discussed with: patient, nurse - Time Spent with Patient Total time spent providing and/or coordinating discharge services: 27 mins Time spent: D/C greater than 8 hours after Admission - Discharge Medications Prescriptions: New Amoxicillin/Clavulanate [Augmentin] 875 mg PO BIDWM 7 Days #14 tablet Continued Zolpidem [Ambien] 10 mg PO HS Insulin Degludec [Tresiba Flextouch U-200] 30 unit SQ DAILY Gabapentin 800 mg PO TID ALPRAZolam [Xanax 1 MG Tablet] 1 mg PO BID Ibuprofen [Ibu-200] 400 mg PO DAILY PRN PRN Reason: Headache Albuterol Sulfate [Albuterol Inhaler] 2 puff IH Q4H PRN inhaler PRN Reason: Shortness Of Breath Aspirin 81 mg PO DAILY tab.chew Atorvastatin [Lipitor] 40 mg PO HS tablet Budesonide/Formoterol 160/4.5 [Symbicort 160/4.5] 2 puff IH BIDR inh Clopidogrel [Plavix] 75 mg PO DAILY tablet Metoprolol XL (24 HR) Succ [Toprol Xl] 100 mg PO DAILY tab.er.24h Hydromorphone HCl [Dilaudid] 8 mg PO TID LevETIRAcetam [Keppra] 750 mg PO BID #30 tablet No Action Citalopram [CeleXA] 40 mg PO DAILY tablet Home Medications: ALPRAZolam [Xanax 1 MG Tablet] 1 mg PO BID 04/13/18 [History] Gabapentin 800 mg PO TID 04/13/18 [History] Ibuprofen [Ibu-200] 400 mg PO DAILY PRN 04/13/18 [History] Insulin Degludec [Tresiba Flextouch U-200] 30 unit SQ DAILY 04/13/18 [History] Zolpidem [Ambien] 10 mg PO HS 04/13/18 [History] Albuterol Sulfate [Albuterol Inhaler] 2 puff IH Q4H PRN inhaler 04/15/18 [Rx] Aspirin 81 mg PO DAILY tab.chew 04/15/18 [Rx] Atorvastatin [Lipitor] 40 mg PO HS tablet 04/15/18 [Rx] Budesonide/Formoterol 160/4.5 [Symbicort 160/4.5] 2 puff IH BIDR inh 04/15/18 [Rx] Citalopram [CeleXA] 40 mg PO DAILY tablet 04/15/18 [Rx] Clopidogrel [Plavix] 75 mg PO DAILY tablet 04/15/18 [Rx] Metoprolol XL (24 HR) Succ [Toprol Xl] 100 mg PO DAILY tab.er.24h 04/15/18 [Rx] Amoxicillin/Clavulanate [Augmentin] 875 mg PO BIDWM 7 Days #14 tablet 08/01/18 [Rx] Hydromorphone HCl [Dilaudid] 8 mg PO TID 08/01/18 [History] LevETIRAcetam [Keppra] 750 mg PO BID #30 tablet 08/01/18 [Rx] Allergies/Adverse Reactions: Allergy/AdvReac Type Severity Reaction Status Date / Time No Known Allergies Allergy Verified 07/31/18 19:01 Date of admission: 07/31/18 20:49 Primary care physician: PCP NONE Consults: 08/01/18 00:34 Consult to Neurology [CONS] Routine Consulting Provider: [facility] Reason for Consult: Seizure Call Completed: No 08/01/18 03:44 Consult to Dietary Tech [CONS] Routine Reason for SW Consult: Patient reporting he is unable to afford his Keppra, presenting with seizure episode. - Constitutional Vitals: Temp Pulse Resp BP Pulse Ox 97.7 F 79 16 155/94 94 08/01/18 03:54 08/01/18 08:08 08/01/18 08:08 08/01/18 08:08 08/01/18 08:08 Exam: General: Alert and oriented, not in acute distress. Cardiovascular:Normal S1 & S2, No JVD. Pulse regular. Lungs: scattered rhonchi on the left lung field Abdomen:Soft, non-tender, no rigidity. Extremities:No deformity or swelling Neurological:Normal cognition and motor skills. Non-focal Psych: Appropriate - Patient Status Disposition: Home, Self-Care Condition: Fair Functional capacity at discharge: independent ambulation Overall status at discharge: patient is progressing back to baseline - Discharge Instructions Instructions: Pneumonia (DC), Diabetes Mellitus Type 2 in Adults (DC), Chronic Hypertension (DC) Follow Up With: NONE,PCP [Primary Care Provider] - - Diet and Activity Activity: resume usual activities as tolerated Diet: diabetic diet
--- NOTE | 2018-08-02 20:52 | Electrocardiograph Report ---
[address] [place], [place] [address] Test Date: 2018-07-31 Pat Name: Ghassan Craig Department: [id number] Room: 2NE26 Gender: M Refuse Driver: : [id number] Requested By: Tj Chávez Order Number: [id number] Reading MD: Sue Mari Measurements Intervals Clos[place]int Rate: 112 P: 74 ID: [id number] QRS: -33 QRSD: 81 T: 65 QT: 321 QTc: 439 Interpretive Statements Sinus tachycardia Probable left atrial enlargement Left axis deviation Abnormal R-wave progression, early transition Electronically Signed On 08-02-2018 20:50:44 EDT by Sue Mari
== END 2018-08-01 11:10 | disposition home or self-care (01) ==
LOC: EMEROOARM 18:58 → 2NENU 18:58 → SUATTDRO 20:49
PROVIDERS: ADMIT Internal Medicine; ATTEND Internal Medicine

== ENCOUNTER 2018-10-11 04:19 | Inpatient (IN) ==
[2018-10-11] MEDS ORDERED: Furosemide 40 MG/4 ML VIAL ONE ×2 (04:23→14:21)
[2018-10-11] MEDS ORDERED: Nitroglycerin 0.4 MG TAB.SUBL SL ONE (04:23)
[2018-10-11] MEDS ORDERED: Nitroglycerin 0.4 MG TAB.SUBL SL STA (04:28)
[2018-10-11] MEDS ORDERED: Isovue-370 500 ML BOTTLE IVP ONE (04:28)
[2018-10-11] MEDS ORDERED: Furosemide 40 MG/4 ML VIAL IVP ONE ×2 (04:28→14:17)
[2018-10-11] MEDS ORDERED: Nitroglycerin 25 MG/250 ML INFUS..BTL IVC ONE (04:35)
[2018-10-11] MEDS: Nitroglycerin 25 MG/250 ML INFUS..BTL IVC SCH (04:38)
[2018-10-11] MEDS ORDERED: *HR* LORazepam 2 MG/ML VIAL IVP ONE (04:38)
[2018-10-11] MEDS ORDERED: *HR* LORazepam 2 MG/ML VIAL ONE ×2 (04:39→13:21)
[2018-10-11 04:46] LABS: ABG Base Excess -10 mEq/L (-2 to 3); ABG HCO3 15 mEq/L (21-27); ABG Oxygen Saturation 97 % (95-98); ABG PCO2 30 mmHg (35-45); ABG PH 7.32 pH Units (7.32-7.45); ABG PO2 95 mmHg (85-104); ABG TCO2 16 mEq/L (20-26)
[2018-10-11 04:46] LABS: Basophils % 0.1 %; Hematocrit 36.3 % (37.5-50.1); Hemoglobin 11.7 g/dL (12.9-16.9); Immature Granulocytes % 0.5 % (0-4); Lymphocytes # 0.8 K/mcL (0.6-4.6); Lymphocytes % 4.5 %; Mean Corpuscular HGB Conc 32.2 g/dL (31.6-35.5); Mean Corpuscular Volume 96.3 fL (83.0-100.0); Mean Platelet Volume 9.3 fL (9.4-12.4); Monocytes # 0.4 K/mcL (0.0-1.3); Monocytes % 2.5 %; Neutrophils # 15.4 K/mcL (1.6-8.9); Platelet Count 420 K/mcL (140-400); Red Blood Count 3.77 M/mcL (4.19-5.50); Red Cell Distribution Width 15.5 % (11.5-14.5); Segmented Neutrophils % 92.4 %; White Blood Count 16.7 K/mcL (4.3-11.1)
[2018-10-11 04:56] LABS: INR 1.3; Prothrombin Time 15.2 Seconds (9.4-12.1)
[2018-10-11 04:59] LABS: Activated Partial Thrombo Time 34.2 Seconds (26.0-36.0)
[2018-10-11 05:11] LABS: Alanine Aminotransferase 33 Units/L (7-52); Albumin 3.6 g/dL (3.5-5.7); Albumin/Globulin Ratio 1.3 (1.1-2.2); Alkaline Phosphatase 226 Units/L (34-104); Aspartate Amino Transferase 56 Units/L (13-39); BUN/Creatinine Ratio 21 (6-26); Bilirubin,Direct 0.3 mg/dL (0.0-0.2); Bilirubin,Indirect 0.4 mg/dL (0.0-1.2); Bilirubin,Total 0.7 mg/dL (0.3-1.0); Blood Urea Nitrogen 30 mg/dL (8-23); Calcium 9.1 mg/dL (8.6-10.3); Carbon Dioxide 16 mEq/L (23-29); Chloride 93 mEq/L (98-107); Globulin 2.8 g/dL (2.4-3.5); Glucose 611 mg/dL (70-105); Lipase < 3 Units/L (11-82); Osmolality,Calculated 313 (280-300); Sodium 134 mEq/L (136-145); Total Protein 6.4 g/dL (6.4-8.9); eGFR For African Americans > 60 (> 60); eGFR For Non-African Americans 51 (> 60)
[2018-10-11] MEDS ORDERED: Piperacillin/Tazobactam 3.375 GM in 0.9 % Sodium Chloride Mini Bag 100 ML IVPB ONE (05:12)
[2018-10-11] MEDS ORDERED: Insulin Human Regular 10 UNIT in 0.9 % Sodium Chloride 10 ML IV ONE (05:18)
[2018-10-11] MEDS ORDERED: *HR* Heparin 5,000 UNIT/ML VIAL IVP PRN (05:24)
[2018-10-11] MEDS ORDERED: *HR* Heparin 5,000 UNIT/ML VIAL IVP ONE (05:24)
[2018-10-11 05:36] LABS: Heparin anti-factor XA UFH 0.05 IU/mL (0.30-0.70)
[2018-10-11 06:12] LABS: Bilirubin,Urine Negative (Negative); Blood,Urine Large (Negative); Clarity,Urine Clear (Clear); Color,Urine Yellow (Yellow); Glucose,Urine (UA) >=1000 mg/dL (Normal); Ketones,Urine Trace mg/dL (Negative); Leukocyte Esterase,Urine Negative (Negative); Nitrite,Urine Negative (Negative); Protein,Urine Negative (Neg-Trace); Specific Gravity,Urine 1.016 (1.010-1.025); Urobilinogen,Urine Normal (Normal)
[2018-10-11 06:15] LABS: Bacteria,Urine None Seen per hpf (None-Few); Hyaline Casts,Urine None Seen per lpf (None-Few); RBC,Urine 50-100 per hpf (0-3); Squamous Epithelial Cell,Urine Many per lpf (None-Few)
[2018-10-11] MEDS: Heparin 25,000 UNIT/250 ML D5W 25,000 UNIT/250 ML IV.SOLN IVC SCH (06:27)
[2018-10-11] MEDS ORDERED: *HR* Dextrose 50 % in Water (Syg) 50 ML SYRINGE IVP PRN ×3 (06:31→14:10)
[2018-10-11] MEDS ORDERED: Azithromycin 500 MG in 0.9 % Sodium Chloride 250 ML IVPB ONE (06:33)
[2018-10-11] MEDS ORDERED: Insulin Human Regular 100 UNIT in 0.9 % Sodium Chloride 100 ML IVC SCH ×2 (06:45→10:45)
[2018-10-11] MEDS ORDERED: Insulin Regular, Human 100 UNIT/ML IV PRN (07:49)
[2018-10-11] MEDS ORDERED: D5% in 0.45% NACL 1,000 ML IVC PRN (07:49)
[2018-10-11] MEDS: 0.9 % Sodium Chloride 1,000 ML IVC SCH ×9 (08:24→22:31)
[2018-10-11] MEDS ORDERED: Nitroglycerin 0.4 MG TAB.SUBL SL PRN (11:31)
[2018-10-11] MEDS ORDERED: Perflutren Lipid Microsphere 1.3 ML in 0.9 % Sodium Chloride 8.7 ML IVP ONE (12:55)
[2018-10-11] MEDS ORDERED: *HR* LORazepam 2 MG/ML VIAL IVP STA (13:19)
[2018-10-11] MEDS: Nitroglycerin 0.4 MG TAB.SUBL SL SCH ×2 (13:40→13:44)
[2018-10-11 13:59] LABS: BUN/Creatinine Ratio 34 (6-26); Blood Urea Nitrogen 31 mg/dL (8-23); Calcium 8.9 mg/dL (8.6-10.3); Carbon Dioxide 24 mEq/L (23-29); Chloride 105 mEq/L (98-107); Glucose 140 mg/dL (70-105); Osmolality,Calculated 299 (280-300); Potassium 3.9 mEq/L (3.5-5.1); Sodium 140 mEq/L (136-145); eGFR For African Americans > 60 (> 60); eGFR For Non-African Americans > 60 (> 60)
[2018-10-11] MEDS ORDERED: Furosemide 20 MG/2 ML VIAL IVP ONE ×3 (14:06→16:43)
[2018-10-11] MEDS ORDERED: D5% in Water 1,000 ML IVC PRN (14:10)
[2018-10-11] MEDS ORDERED: Dextrose Gel 15 GM/37.5 ML TUBE PO PRN (14:10)
[2018-10-11] MEDS ORDERED: Dexmedetomidine HCl 400 MCG/100 ML MLS IVC ONE (14:21)
[2018-10-11] MEDS: Dexmedetomidine HCl 400 MCG/100 ML MLS IVC SCH ×3 (14:35→23:21)
[2018-10-11] MEDS ORDERED: Lidocaine 2% Syringe 100 MG/5 ML ONE (14:57)
[2018-10-11] MEDS ORDERED: *HR* Midazolam HCl 2 MG/2 ML VIAL IVP PRN (15:19)
[2018-10-11] MEDS ORDERED: FentaNYL (PF) 1,000 MCG in 0.9 % Sodium Chloride 80 ML IVC SCH (15:30)
[2018-10-11] MEDS ORDERED: *HR* Midazolam HCl 5 MG/5 ML VIAL IVP ONE (15:49)
[2018-10-11] MEDS ORDERED: *HR* Vecuronium 10 MG VIAL IVP ONE (15:50)
[2018-10-11] MEDS: Insulin LISPRO 300 UNITS/3 ML VIAL SQ SCH ×2 (16:44→20:16)
[2018-10-11] MEDS: Piperacillin/Tazobactam 3.375 GM in 0.9 % Sodium Chloride Mini Bag 100 ML IVPB SCH ×2 (16:50→22:31)
[2018-10-11 16:54] LABS: ABG Base Excess -4 mEq/L (-2 to 3); ABG HCO3 24 mEq/L (21-27); ABG Oxygen Saturation 99 % (95-98); ABG PCO2 59 mmHg (35-45); ABG PH 7.22 pH Units (7.32-7.45); ABG PO2 155 mmHg (85-104); ABG TCO2 26 mEq/L (20-26); Blood Gas Modality VC; Blood Gas VT 450 cc
[2018-10-11 20:02] LABS: VBG Ionized Calcium 0.94 mmol/L (1.15-1.35)
[2018-10-11 20:15] LABS: Magnesium 1.8 mg/dL (1.6-2.6); Phosphorous 3.8 mg/dL (2.7-4.5)
[2018-10-11] MEDS: *HR* Heparin 5,000 UNIT/ML VIAL IVP PRN (20:27)
[2018-10-11 21:53] LABS: ABG Base Excess -2 mEq/L (-2 to 3); ABG HCO3 21 mEq/L (21-27); ABG Oxygen Saturation 99 % (95-98); ABG PCO2 29 mmHg (35-45); ABG PH 7.46 pH Units (7.32-7.45); ABG PO2 118 mmHg (85-104); ABG TCO2 22 mEq/L (20-26); Blood Gas Modality ASSIST CONTROL; Blood Gas VT 450 cc
[2018-10-11 22:12] LABS: BUN/Creatinine Ratio 32 (6-26); Blood Urea Nitrogen 34 mg/dL (8-23); Calcium 8.3 mg/dL (8.6-10.3); Carbon Dioxide 17 mEq/L (23-29); Chloride 105 mEq/L (98-107); Glucose 213 mg/dL (70-105); Osmolality,Calculated 300 (280-300); Potassium 4.3 mEq/L (3.5-5.1); Sodium 138 mEq/L (136-145); eGFR For African Americans > 60 (> 60); eGFR For Non-African Americans > 60 (> 60)
[2018-10-11] MEDS: Norepinephrine 4 MG in 0.9 % Sodium Chloride 250 ML IVC SCH (22:47)
[2018-10-11] MEDS: Calcium Gluconate 1gm/50mL 1 GM/50 ML BAG IVPB PRN (23:22)
[2018-10-12] MEDS: 0.9 % Sodium Chloride 1,000 ML IVC SCH ×6 (00:15→08:40)
[2018-10-12] MEDS: Insulin LISPRO 300 UNITS/3 ML VIAL SQ SCH ×7 (00:16→23:10)
[2018-10-12] MEDS ORDERED: Artificial Tears SOLN 15 ML BOTTLE BOTH EYES PRN (02:47)
[2018-10-12] MEDS: Heparin 25,000 UNIT/250 ML D5W 25,000 UNIT/250 ML IV.SOLN IVC SCH (03:20)
[2018-10-12] MEDS: *HR* Heparin 5,000 UNIT/ML VIAL IVP PRN ×2 (03:23→12:18)
[2018-10-12] MEDS: Chlorhexidine Rinse 15 ML MOUTHWASH MM SCH ×3 (03:23→19:47)
[2018-10-12] MEDS: Artificial Tears SOLN 15 ML BOTTLE BOTH EYES SCH ×6 (03:23→23:10)
[2018-10-12] MEDS: Nitroglycerin 25 MG/250 ML INFUS..BTL IVC SCH (03:31)
[2018-10-12 04:18] LABS: ABG Base Excess 0 mEq/L (-2 to 3); ABG HCO3 25 mEq/L (21-27); ABG Oxygen Saturation 100 % (95-98); ABG PCO2 38 mmHg (35-45); ABG PH 7.42 pH Units (7.32-7.45); ABG PO2 169 mmHg (85-104); ABG TCO2 26 mEq/L (20-26); Blood Gas Modality ASSIST CONTROL; Blood Gas VT 450 cc
[2018-10-12 05:30] LABS: Basophils % 0.2 %; Eosinophils % 0.4 %; Immature Granulocytes % 0.4 % (0-4); Lymphocytes # 3.2 K/mcL (0.6-4.6); Lymphocytes % 28.2 %; Mean Corpuscular HGB Conc 32.9 g/dL (31.6-35.5); Mean Corpuscular Hemoglobin 30.9 pg (28.0-33.3); Mean Platelet Volume 9.4 fL (9.4-12.4); Monocytes # 0.2 K/mcL (0.0-1.3); Monocytes % 1.4 %; Neutrophils # 7.9 K/mcL (1.6-8.9); Platelet Count 283 K/mcL (140-400); Red Blood Count 2.98 M/mcL (4.19-5.50); Red Cell Distribution Width 15.6 % (11.5-14.5); Segmented Neutrophils % 69.4 %; White Blood Count 11.3 K/mcL (4.3-11.1)
[2018-10-12 05:33] LABS: Hemoglobin 9.2 g/dL (12.9-16.9)
[2018-10-12 05:48] LABS: BUN/Creatinine Ratio 27 (6-26); Blood Urea Nitrogen 35 mg/dL (8-23); Calcium 8.1 mg/dL (8.6-10.3); Carbon Dioxide 25 mEq/L (23-29); Chloride 105 mEq/L (98-107); Glucose 104 mg/dL (70-105); Osmolality,Calculated 306 (280-300); Potassium 3.6 mEq/L (3.5-5.1); Sodium 144 mEq/L (136-145); eGFR For African Americans > 60 (> 60); eGFR For Non-African Americans 56 (> 60)
[2018-10-12] MEDS: Piperacillin/Tazobactam 3.375 GM in 0.9 % Sodium Chloride Mini Bag 100 ML IVPB SCH ×3 (06:09→22:26)
[2018-10-12] MEDS ORDERED: *HR* Etomidate 20 MG/10 ML AMPUL IVP ONE (08:36)
[2018-10-12] MEDS ORDERED: *HR* Propofol 200 MG/20 ML VIAL IVP ONE (08:36)
[2018-10-12] MEDS ORDERED: *HR* Midazolam HCl 5 MG/5 ML VIAL IVP ONE ×2 (08:36→15:13)
[2018-10-12] MEDS ORDERED: *HR* Midazolam HCl 2 MG/2 ML VIAL IV ONE (08:36)
[2018-10-12] MEDS ORDERED: Lidocaine 2% Syringe 100 MG/5 ML IV ONE (08:36)
[2018-10-12] MEDS: Dexmedetomidine HCl 400 MCG/100 ML MLS IVC SCH ×3 (09:41→22:27)
[2018-10-12 11:29] LABS: VBG Ionized Calcium 1.06 mmol/L (1.15-1.35)
[2018-10-12 11:53] LABS: Magnesium 2.2 mg/dL (1.6-2.6); Phosphorous 3.9 mg/dL (2.7-4.5)
[2018-10-12] MEDS: Calcium Gluconate 1gm/50mL 1 GM/50 ML BAG IVPB PRN (12:13)
[2018-10-12] MEDS: Pantoprazole 40 MG VIAL IVP SCH (12:13)
[2018-10-12 12:26] LABS: Potassium 3.9 mEq/L (3.5-5.1)
[2018-10-12] MEDS ORDERED: Verapamil 5 MG/2 ML VIAL ONE (14:39)
[2018-10-12] MEDS ORDERED: Nitroglycerin 1,000 MCG/10 ML VIAL IV ONE (14:40)
[2018-10-12] MEDS ORDERED: Iopamidol 125 ML INFUS..BTL ONE ×2 (15:26→15:52)
[2018-10-12] MEDS ORDERED: Heparin 1,000 UNITS/500 mL 500 ML ONE (15:51)
[2018-10-12] MEDS ORDERED: *HR* Heparin 10,000 UNIT/10 ML VIAL ONE (15:51)
[2018-10-12] MEDS ORDERED: 0.9 % Sodium Chloride 2,000 ML ONE (15:52)
[2018-10-12] MEDS: Norepinephrine 4 MG in 0.9 % Sodium Chloride 250 ML IVC SCH (19:49)
[2018-10-13] MEDS: Nitroglycerin 25 MG/250 ML INFUS..BTL IVC SCH ×2 (02:53→22:50)
[2018-10-13 04:15] LABS: ABG Base Excess -9 mEq/L (-2 to 3); ABG HCO3 16 mEq/L (21-27); ABG Oxygen Saturation 98 % (95-98); ABG PCO2 32 mmHg (35-45); ABG PH 7.32 pH Units (7.32-7.45); ABG PO2 104 mmHg (85-104); ABG TCO2 17 mEq/L (20-26); Blood Gas Modality ASSIST CONTROL; Blood Gas VT 500 cc
[2018-10-13] MEDS: Artificial Tears SOLN 15 ML BOTTLE BOTH EYES SCH ×6 (04:38→23:24)
[2018-10-13] MEDS: Insulin LISPRO 300 UNITS/3 ML VIAL SQ SCH ×6 (04:39→23:23)
[2018-10-13 04:55] LABS: Basophils % 0.1 %; Eosinophils # 0.2 K/mcL (0.0-0.6); Eosinophils % 2.2 %; Hematocrit 29.5 % (37.5-50.1); Hemoglobin 9.3 g/dL (12.9-16.9); Immature Granulocytes % 0.6 % (0-4); Lymphocytes % 27.4 %; Mean Corpuscular HGB Conc 31.5 g/dL (31.6-35.5); Mean Corpuscular Hemoglobin 31.3 pg (28.0-33.3); Mean Corpuscular Volume 99.3 fL (83.0-100.0); Mean Platelet Volume 9.4 fL (9.4-12.4); Monocytes # 0.2 K/mcL (0.0-1.3); Monocytes % 2.7 %; Neutrophils # 4.8 K/mcL (1.6-8.9); Platelet Count 253 K/mcL (140-400); Red Blood Count 2.97 M/mcL (4.19-5.50); White Blood Count 7.2 K/mcL (4.3-11.1)
[2018-10-13 05:10] LABS: BUN/Creatinine Ratio 36 (6-26); Blood Urea Nitrogen 32 mg/dL (8-23); Calcium 8.2 mg/dL (8.6-10.3); Carbon Dioxide 18 mEq/L (23-29); Chloride 108 mEq/L (98-107); Glucose 111 mg/dL (70-105); Osmolality,Calculated 306 (280-300); Sodium 144 mEq/L (136-145); eGFR For African Americans > 60 (> 60); eGFR For Non-African Americans > 60 (> 60)
[2018-10-13] MEDS: *HR* Heparin 5,000 UNIT/ML VIAL SQ SCH ×2 (05:26→17:37)
[2018-10-13] MEDS: Piperacillin/Tazobactam 3.375 GM in 0.9 % Sodium Chloride Mini Bag 100 ML IVPB SCH ×3 (05:26→20:58)
[2018-10-13] MEDS: Dexmedetomidine HCl 400 MCG/100 ML MLS IVC SCH ×3 (06:21→23:24)
[2018-10-13] MEDS: Chlorhexidine Rinse 15 ML MOUTHWASH MM SCH ×3 (07:49→20:58)
[2018-10-13] MEDS: Pantoprazole 40 MG VIAL IVP SCH (07:50)
[2018-10-13] MEDS ORDERED: Aminoglycoside Consult 1 EACH MC ONE (08:31)
[2018-10-13] MEDS ORDERED: Artificial Tears SOLN 15 ML BOTTLE BOTH EYES PRN (08:59)
[2018-10-13 16:42] LABS: Potassium 4.1 mEq/L (3.5-5.1)
[2018-10-13] MEDS: Gabapentin 400 MG CAPSULE PO SCH ×2 (17:34→20:58)
[2018-10-13] MEDS: Furosemide 40 MG/4 ML VIAL IVP SCH (17:36)
[2018-10-13] MEDS: Norepinephrine 4 MG in 0.9 % Sodium Chloride 250 ML IVC SCH (17:40)
[2018-10-13] MEDS: levETIRAcetam 750 MG in 0.9 % Sodium Chloride 100 ML IVPB SCH (21:01)
[2018-10-14] MEDS: Artificial Tears SOLN 15 ML BOTTLE BOTH EYES SCH ×6 (03:24→23:25)
[2018-10-14] MEDS: Insulin LISPRO 300 UNITS/3 ML VIAL SQ SCH ×6 (03:26→23:25)
[2018-10-14 03:56] LABS: Basophils % 0.3 %; Eosinophils # 0.2 K/mcL (0.0-0.6); Eosinophils % 2.3 %; Hematocrit 29.3 % (37.5-50.1); Hemoglobin 9.3 g/dL (12.9-16.9); Immature Granulocytes % 0.3 % (0-4); Lymphocytes # 1.6 K/mcL (0.6-4.6); Lymphocytes % 23.9 %; Mean Corpuscular HGB Conc 31.7 g/dL (31.6-35.5); Mean Corpuscular Hemoglobin 31.1 pg (28.0-33.3); Mean Platelet Volume 9.2 fL (9.4-12.4); Monocytes # 0.2 K/mcL (0.0-1.3); Monocytes % 3.7 %; Neutrophils # 4.5 K/mcL (1.6-8.9); Platelet Count 234 K/mcL (140-400); Red Blood Count 2.99 M/mcL (4.19-5.50); Red Cell Distribution Width 16.2 % (11.5-14.5); Segmented Neutrophils % 69.5 %; White Blood Count 6.5 K/mcL (4.3-11.1)
[2018-10-14 04:09] LABS: BUN/Creatinine Ratio 23 (6-26); Blood Urea Nitrogen 19 mg/dL (8-23); Calcium 8.1 mg/dL (8.6-10.3); Carbon Dioxide 18 mEq/L (23-29); Chloride 109 mEq/L (98-107); Glucose 132 mg/dL (70-105); Magnesium 1.5 mg/dL (1.6-2.6); Osmolality,Calculated 302 (280-300); Phosphorous 3.9 mg/dL (2.7-4.5); Potassium 3.8 mEq/L (3.5-5.1); Sodium 144 mEq/L (136-145); eGFR For African Americans > 60 (> 60); eGFR For Non-African Americans > 60 (> 60)
[2018-10-14 04:24] LABS: ABG Base Excess -7 mEq/L (-2 to 3); ABG HCO3 19 mEq/L (21-27); ABG Oxygen Saturation 96 % (95-98); ABG PCO2 39 mmHg (35-45); ABG PO2 88 mmHg (85-104); ABG TCO2 20 mEq/L (20-26); Blood Gas Modality ASSIST CONTROL; Blood Gas VT 550 cc
[2018-10-14] MEDS: *HR* Heparin 5,000 UNIT/ML VIAL SQ SCH ×2 (05:16→17:59)
[2018-10-14] MEDS: Piperacillin/Tazobactam 3.375 GM in 0.9 % Sodium Chloride Mini Bag 100 ML IVPB SCH ×3 (05:16→20:44)
[2018-10-14] MEDS: Dexmedetomidine HCl 400 MCG/100 ML MLS IVC SCH ×2 (07:31→18:10)
[2018-10-14] MEDS: Furosemide 40 MG/4 ML VIAL IVP SCH ×2 (08:55→17:58)
[2018-10-14] MEDS: Gabapentin 400 MG CAPSULE PO SCH ×3 (08:55→20:43)
[2018-10-14] MEDS: Pantoprazole 40 MG VIAL IVP SCH (08:55)
[2018-10-14] MEDS: Chlorhexidine Rinse 15 ML MOUTHWASH MM SCH ×2 (08:55→20:42)
[2018-10-14] MEDS: levETIRAcetam 750 MG in 0.9 % Sodium Chloride 100 ML IVPB SCH ×2 (09:00→20:42)
[2018-10-14] MEDS ORDERED: Lidocaine Viscous Oral Soln 15 ML SOLUTION ONE (10:39)
[2018-10-14 15:08] LABS: Magnesium 1.7 mg/dL (1.6-2.6); Potassium 3.8 mEq/L (3.5-5.1)
[2018-10-14 17:07] LABS: Appearance of Body Fluid Cloudy (Clear); Volume of Body Fluid 19 mL
[2018-10-14] MEDS: Norepinephrine 4 MG in 0.9 % Sodium Chloride 250 ML IVC SCH (20:31)
[2018-10-14] MEDS: Nitroglycerin 25 MG/250 ML INFUS..BTL IVC SCH (22:45)
[2018-10-15] MEDS: Dexmedetomidine HCl 400 MCG/100 ML MLS IVC SCH ×3 (02:45→23:15)
[2018-10-15] MEDS: Insulin LISPRO 300 UNITS/3 ML VIAL SQ SCH ×5 (03:49→21:01)
[2018-10-15] MEDS: Artificial Tears SOLN 15 ML BOTTLE BOTH EYES SCH ×5 (03:50→20:59)
[2018-10-15 03:59] LABS: Basophils % 0.3 %; Eosinophils # 0.2 K/mcL (0.0-0.6); Eosinophils % 2.8 %; Hematocrit 30.4 % (37.5-50.1); Hemoglobin 9.6 g/dL (12.9-16.9); Immature Granulocytes % 0.4 % (0-4); Lymphocytes # 1.3 K/mcL (0.6-4.6); Lymphocytes % 18.8 %; Mean Corpuscular HGB Conc 31.6 g/dL (31.6-35.5); Mean Corpuscular Hemoglobin 30.9 pg (28.0-33.3); Mean Corpuscular Volume 97.7 fL (83.0-100.0); Monocytes # 0.4 K/mcL (0.0-1.3); Monocytes % 5.8 %; Neutrophils # 4.9 K/mcL (1.6-8.9); Platelet Count 210 K/mcL (140-400); Red Blood Count 3.11 M/mcL (4.19-5.50); Red Cell Distribution Width 16.1 % (11.5-14.5); Segmented Neutrophils % 71.9 %; White Blood Count 6.9 K/mcL (4.3-11.1)
[2018-10-15 04:17] LABS: BUN/Creatinine Ratio 15 (6-26); Blood Urea Nitrogen 11 mg/dL (8-23); Calcium 8.3 mg/dL (8.6-10.3); Carbon Dioxide 21 mEq/L (23-29); Chloride 107 mEq/L (98-107); Glucose 192 mg/dL (70-105); Magnesium 1.8 mg/dL (1.6-2.6); Osmolality,Calculated 303 (280-300); Sodium 144 mEq/L (136-145); eGFR For African Americans > 60 (> 60); eGFR For Non-African Americans > 60 (> 60)
[2018-10-15] MEDS: Piperacillin/Tazobactam 3.375 GM in 0.9 % Sodium Chloride Mini Bag 100 ML IVPB SCH ×3 (05:05→21:02)
[2018-10-15] MEDS: *HR* Heparin 5,000 UNIT/ML VIAL SQ SCH ×2 (05:05→17:42)
[2018-10-15] MEDS: levETIRAcetam 750 MG in 0.9 % Sodium Chloride 100 ML IVPB SCH ×2 (08:23→21:01)
[2018-10-15] MEDS: Pantoprazole 40 MG VIAL IVP SCH (08:28)
[2018-10-15] MEDS: Furosemide 40 MG/4 ML VIAL IVP SCH ×2 (08:28→17:46)
[2018-10-15] MEDS: Gabapentin 400 MG CAPSULE PO SCH ×3 (08:28→21:02)
[2018-10-15] MEDS: Chlorhexidine Rinse 15 ML MOUTHWASH MM SCH ×2 (08:28→21:00)
[2018-10-15 13:35] LABS: Magnesium 1.9 mg/dL (1.6-2.6); Potassium 3.5 mEq/L (3.5-5.1)
[2018-10-15] MEDS ORDERED: Metoprolol XL (24 HR) Succ 25 MG TAB.ER.24H PO SCH (14:15)
[2018-10-15] MEDS: carvediloL 6.25 MG TABLET PO SCH (17:42)
[2018-10-15] MEDS: Norepinephrine 4 MG in 0.9 % Sodium Chloride 250 ML IVC SCH (21:48)
[2018-10-16] MEDS: Artificial Tears SOLN 15 ML BOTTLE BOTH EYES SCH ×6 (00:49→20:27)
[2018-10-16] MEDS: Insulin LISPRO 300 UNITS/3 ML VIAL SQ SCH ×6 (00:49→20:28)
[2018-10-16] MEDS: Nitroglycerin 25 MG/250 ML INFUS..BTL IVC SCH (04:35)
[2018-10-16 04:42] LABS: ABG Base Excess 7 mEq/L (-2 to 3); ABG HCO3 32 mEq/L (21-27); ABG Oxygen Saturation 96 % (95-98); ABG PCO2 47 mmHg (35-45); ABG PH 7.44 pH Units (7.32-7.45); ABG PO2 79 mmHg (85-104); ABG TCO2 34 mEq/L (20-26); Blood Gas VT 550 cc
[2018-10-16 04:54] LABS: Basophils % 0.1 %; Eosinophils # 0.1 K/mcL (0.0-0.6); Eosinophils % 1.9 %; Hematocrit 31.8 % (37.5-50.1); Hemoglobin 10.1 g/dL (12.9-16.9); Immature Granulocytes % 0.3 % (0-4); Lymphocytes # 1.6 K/mcL (0.6-4.6); Lymphocytes % 23.2 %; Mean Corpuscular HGB Conc 31.8 g/dL (31.6-35.5); Mean Corpuscular Hemoglobin 30.3 pg (28.0-33.3); Mean Corpuscular Volume 95.5 fL (83.0-100.0); Mean Platelet Volume 8.9 fL (9.4-12.4); Monocytes # 0.5 K/mcL (0.0-1.3); Monocytes % 6.6 %; Neutrophils # 4.7 K/mcL (1.6-8.9); Platelet Count 250 K/mcL (140-400); Red Blood Count 3.33 M/mcL (4.19-5.50); Red Cell Distribution Width 15.9 % (11.5-14.5); Segmented Neutrophils % 67.9 %; White Blood Count 6.9 K/mcL (4.3-11.1)
[2018-10-16 05:12] LABS: BUN/Creatinine Ratio 17 (6-26); Blood Urea Nitrogen 10 mg/dL (8-23); Calcium 8.3 mg/dL (8.6-10.3); Carbon Dioxide 30 mEq/L (23-29); Chloride 106 mEq/L (98-107); Glucose 246 mg/dL (70-105); Magnesium 2.1 mg/dL (1.6-2.6); Osmolality,Calculated 305 (280-300); Potassium 3.3 mEq/L (3.5-5.1); Sodium 144 mEq/L (136-145); eGFR For African Americans > 60 (> 60); eGFR For Non-African Americans > 60 (> 60)
[2018-10-16] MEDS: *HR* Heparin 5,000 UNIT/ML VIAL SQ SCH ×2 (06:09→17:36)
[2018-10-16] MEDS: Piperacillin/Tazobactam 3.375 GM in 0.9 % Sodium Chloride Mini Bag 100 ML IVPB SCH ×2 (06:09→14:12)
[2018-10-16] MEDS: Furosemide 40 MG/4 ML VIAL IVP SCH ×2 (08:46→16:24)
[2018-10-16] MEDS: Chlorhexidine Rinse 15 ML MOUTHWASH MM SCH ×2 (08:46→20:27)
[2018-10-16] MEDS: levETIRAcetam 750 MG in 0.9 % Sodium Chloride 100 ML IVPB SCH ×2 (11:37→20:26)
[2018-10-16] MEDS: Pantoprazole 40 MG VIAL IVP SCH (11:40)
[2018-10-16] MEDS: carvediloL 6.25 MG TABLET PO SCH ×2 (11:50→16:24)
[2018-10-16] MEDS: Gabapentin 400 MG CAPSULE PO SCH ×3 (11:51→20:28)
[2018-10-16] MEDS ORDERED: cefTRIAXone 2,000 MG in Water for inj. (sterile) 20 ML IVP SCH (16:00)
[2018-10-16] MEDS ORDERED: Water for inj. (sterile) 20 ML IV ONE (16:20)
[2018-10-16] MEDS ORDERED: *HR* Promethazine 25 MG/ML VIAL IVP ONE (20:14)
[2018-10-16] MEDS ORDERED: *HR* Promethazine 25 MG/ML VIAL ONE (20:18)
[2018-10-16] MEDS: Norepinephrine 4 MG in 0.9 % Sodium Chloride 250 ML IVC SCH (20:28)
[2018-10-16] MEDS ORDERED: Insulin DETEMIR 100 UNIT/ML X5UNITS SQ SCH (21:00)
[2018-10-16] MEDS ORDERED: Naloxone 0.4 MG/ML INJ IVP PRN (21:20)
[2018-10-16] MEDS ORDERED: *HR* OxyCODONE Immed Rel 5 MG TABLET PO PRN (21:20)
[2018-10-17] MEDS: Artificial Tears SOLN 15 ML BOTTLE BOTH EYES SCH ×3 (00:09→08:46)
[2018-10-17] MEDS: Insulin LISPRO 300 UNITS/3 ML VIAL SQ SCH ×5 (00:15→16:26)
[2018-10-17] MEDS ORDERED: *HR* HYDROmorphone 4 MG TABLET PO PRN (02:23)
[2018-10-17 03:20] LABS: VBG Ionized Calcium 0.99 mmol/L (1.15-1.35)
[2018-10-17 03:21] LABS: Basophils % 0.4 %; Eosinophils # 0.1 K/mcL (0.0-0.6); Hemoglobin 11.2 g/dL (12.9-16.9); Immature Granulocytes % 0.6 % (0-4); Lymphocytes # 1.9 K/mcL (0.6-4.6); Lymphocytes % 28.4 %; Mean Corpuscular HGB Conc 32.9 g/dL (31.6-35.5); Mean Corpuscular Hemoglobin 30.9 pg (28.0-33.3); Mean Corpuscular Volume 93.7 fL (83.0-100.0); Mean Platelet Volume 9.1 fL (9.4-12.4); Monocytes # 0.6 K/mcL (0.0-1.3); Monocytes % 8.2 %; Neutrophils # 4.2 K/mcL (1.6-8.9); Platelet Count 340 K/mcL (140-400); Red Blood Count 3.63 M/mcL (4.19-5.50); Red Cell Distribution Width 15.8 % (11.5-14.5); Segmented Neutrophils % 61.4 %; White Blood Count 6.8 K/mcL (4.3-11.1)
[2018-10-17 03:37] LABS: Phosphorous 1.6 mg/dL (2.7-4.5)
[2018-10-17] MEDS: Nitroglycerin 25 MG/250 ML INFUS..BTL IVC SCH (03:51)
[2018-10-17 05:06] LABS: BUN/Creatinine Ratio 17 (6-26); Blood Urea Nitrogen 9 mg/dL (8-23); Calcium 8.5 mg/dL (8.6-10.3); Carbon Dioxide 31 mEq/L (23-29); Chloride 100 mEq/L (98-107); Glucose 113 mg/dL (70-105); Magnesium 1.5 mg/dL (1.6-2.6); Osmolality,Calculated 297 (280-300); Potassium 3.2 mEq/L (3.5-5.1); Sodium 144 mEq/L (136-145); eGFR For African Americans > 60 (> 60); eGFR For Non-African Americans > 60 (> 60)
[2018-10-17] MEDS ORDERED: ALPRAZolam 1 MG TABLET PO PRN ×2 (05:37→09:50)
[2018-10-17] MEDS: Calcium Gluconate 1gm/50mL 1 GM/50 ML BAG IVPB PRN (05:45)
[2018-10-17] MEDS: *HR* Heparin 5,000 UNIT/ML VIAL SQ SCH (05:45)
[2018-10-17] MEDS: levETIRAcetam 750 MG in 0.9 % Sodium Chloride 100 ML IVPB SCH (08:43)
[2018-10-17] MEDS: Chlorhexidine Rinse 15 ML MOUTHWASH MM SCH (08:44)
[2018-10-17] MEDS: Furosemide 40 MG/4 ML VIAL IVP SCH (08:44)
[2018-10-17] MEDS: Pantoprazole 40 MG VIAL IVP SCH (08:44)
[2018-10-17] MEDS: Gabapentin 400 MG CAPSULE PO SCH (08:45)
[2018-10-17] MEDS: carvediloL 6.25 MG TABLET PO SCH (08:45)
[2018-10-17] MEDS ORDERED: Nitroglycerin 25 MG/250 ML INFUS..BTL IVC SCH (09:50)
[2018-10-17] MEDS ORDERED: Nitroglycerin 0.4 MG TAB.SUBL SL PRN (09:50)
[2018-10-17] MEDS ORDERED: D5% in Water 1,000 ML IVC PRN (09:50)
[2018-10-17] MEDS ORDERED: Dextrose Gel 15 GM/37.5 ML TUBE PO PRN (09:50)
[2018-10-17] MEDS ORDERED: *HR* Dextrose 50 % in Water (Syg) 50 ML SYRINGE IVP PRN (09:50)
[2018-10-17] MEDS ORDERED: Naloxone 0.4 MG/ML INJ IVP PRN (09:50)
[2018-10-17] MEDS: *HR* HYDROmorphone 4 MG TABLET PO PRN ×2 (13:00→16:39)
[2018-10-17] MEDS ORDERED: Gabapentin 400 MG CAPSULE PO SCH (15:00)
[2018-10-17] MEDS ORDERED: cefTRIAXone 2,000 MG in Water for inj. (sterile) 20 ML IVP SCH (16:00)
[2018-10-17 16:38] VITALS: BP 128/74
[2018-10-17] MEDS ORDERED: carvediloL 6.25 MG TABLET PO SCH (17:00)
[2018-10-17] MEDS ORDERED: Furosemide 40 MG/4 ML VIAL IVP SCH (17:00)
[2018-10-17] MEDS ORDERED: *HR* Heparin 5,000 UNIT/ML VIAL SQ SCH (18:00)
[2018-10-17] MEDS ORDERED: levETIRAcetam 750 MG in 0.9 % Sodium Chloride 100 ML IVPB SCH (21:00)
[2018-10-17] MEDS ORDERED: Chlorhexidine Rinse 15 ML MOUTHWASH MM SCH (21:00)
[2018-10-17] MEDS ORDERED: Insulin DETEMIR 100 UNIT/ML X5UNITS SQ SCH (21:00)
[2018-10-18] MEDS ORDERED: Pantoprazole 40 MG VIAL IVP SCH (09:00)
[2018-10-18 09:02] LABS: Estimated Average Glucose 292 mg/dl
== END 2018-10-17 17:40 | disposition left against medical advice (07) | DRG 280 ==
LOC: ICNU 04:19 → EMEROOARM 04:19 → ICNU 07:48 → 2ANU 10-17 10:25
PROVIDERS: ADMIT Internal Medicine; ATTEND Internal Medicine

== ENCOUNTER 2018-10-18 08:48 | Observation (INO) ==
--- NOTE | 2018-10-18 08:55 | Emergency Department Note ---
Disposition Clinical Impression: Hypoxia, Elevated troponin Dyspnea Qualifiers: Dyspnea type: unspecified Qualified Code(s): R06.00 - Dyspnea, unspecified Disposition: Admitted As Inpatient Time of Disposition: 16:51 General Adult HPI - General Stated complaint: SOB Time Seen by Provider: 10/18/18 08:51 - Related Data Home Medications Medication Instructions Recorded Confirmed ALPRAZolam [Xanax 1 MG Tablet] 1 mg PO BID 04/13/18 10/18/18 Gabapentin 800 mg PO TID 04/13/18 10/18/18 Ibuprofen [Ibu-200] 400 mg PO DAILY PRN 04/13/18 10/18/18 Insulin Degludec [Tresiba 30 unit SQ DAILY 04/13/18 10/18/18 Flextouch U-200] Zolpidem [Ambien] 10 mg PO HS PRN 04/13/18 10/18/18 Citalopram Hydrobromide 60 mg PO DAILY 10/11/18 10/18/18 [Citalopram HBr] Hydromorphone HCl [Dilaudid] 8 mg PO Q4H PRN 10/13/18 10/18/18 Previous Rx's Medication Instructions Recorded Albuterol Sulfate [Proventil 2 puff IH Q4H PRN inhaler 04/15/18 Inhaler] LevETIRAcetam [Keppra] 750 mg PO BID #30 tablet 08/01/18 Potassium Citrate [Urocit-K] 20 meq PO TID 3 Days #9 tablet.er 08/27/18 Carvedilol [Coreg] 3.125 mg PO BIDWM 30 Days #60 10/17/18 tablet Lisinopril [Zestril] 2.5 mg PO DAILY #30 tablet 10/17/18 Nitroglycerin 0.4 mg SL Q5MPRN PRN #10 tab.subl 10/17/18 Allergies Allergy/AdvReac Type Severity Reaction Status Date / Time No Known Allergies Allergy Verified 10/11/18 13:42 Past Medical History - Past Medical History Medical history: Reports: arthritis, asthma, CHF, COPD, coronary artery disease, CVA, diabetes, GERD, hyperlipidemia, hypertension, myocardial infarction, peripheral artery disease, seizures, other Surgical history: Reports: angioplasty/stent, cholecystectomy, herniorrhaphy, knee replacement, orthopedic, other, other Psychiatric history: Reports: anxiety, depression, other - Social History Smoking Status: Current every day smoker Smokeless Tobacco Status: No Alcohol use: Reports: none Drug use: Reports: none Course Vital Signs Temperature 98.2 F 10/18/18 09:04 Pulse Rate 89 10/18/18 09:04 Respiratory Rate 16 10/18/18 09:04 Blood Pressure 142/86 10/18/18 09:04 O2 Sat by Pulse Oximetry 96 10/18/18 09:04 Temperature 98.3 F 10/18/18 16:24 Pulse Rate 91 10/18/18 16:24 Respiratory Rate 21 10/18/18 16:24 Blood Pressure 158/87 10/18/18 16:24 O2 Sat by Pulse Oximetry 90 10/18/18 16:24 Oxygen Delivery Oxygen Delivery Nasal Cannula Medical Decision Making - Lab Data Result diagrams: 10/18/18 09:19 10/18/18 09:19 Lab Results 10/18/18 10/18/18 10/18/18 Range/Units 09:19 09:19 09:19 WBC 6.3 (4.3-11.1) K/mcL RBC 4.17 L (4.19-5.50) M/mcL Hgb 12.8 L D (12.9-16.9) g/dL Hct 38.8 (37.5-50.1) % MCV 93.0 (83.0-100.0) fL MCH 30.7 (28.0-33.3) pg MCHC 33.0 (31.6-35.5) g/dL RDW 15.8 H (11.5-14.5) % Plt Count 374 (140-400) K/mcL MPV 8.7 L (9.4-12.4) fL Immature Gran % 0.6 (0-4) % Seg Neutrophils % 62.6 % Lymphocytes % 26.7 % Monocytes % 7.7 % Eosinophils % 1.9 % Basophils % 0.5 % Neutrophils # 4.0 (1.6-8.9) K/mcL Lymphocytes # 1.7 (0.6-4.6) K/mcL Monocytes # 0.5 (0.0-1.3) K/mcL Eosinophils # 0.1 (0.0-0.6) K/mcL Basophils # 0.0 (0.0-0.2) K/mcL PT (9.4-12.1) Seconds INR Sodium 138 (136-145) mEq/L Potassium 3.5 (3.5-5.1) mEq/L Chloride 93 L (98-107) mEq/L Carbon Dioxide 35 H (23-29) mEq/L BUN 11 (8-23) mg/dL Creatinine 0.57 L (0.70-1.30) mg/dL Est GFR ( Amer) > 60 (> 60) Est GFR (Non-Af Amer) > 60 (> 60) BUN/Creatinine Ratio 19 (6-26) Glucose 243 H (70-105) mg/dL Calculated Osmolality 293 (280-300) Lactic Acid (0.5-2.2) mmol/L Calcium 8.9 (8.6-10.3) mg/dL Magnesium 1.7 (1.6-2.6) mg/dL Total Bilirubin 0.4 (0.3-1.0) mg/dL AST 12 L (13-39) Units/L ALT 17 (7-52) Units/L Alkaline Phosphatase 111 H (34-104) Units/L Troponin I 0.26 H* (< 0.04) ng/mL B-Natriuretic Peptide 482 H (Less than 100) pg/mL Serum Total Protein 6.8 (6.4-8.9) g/dL Albumin 3.5 (3.5-5.7) g/dL Globulin 3.3 (2.4-3.5) g/dL Albumin/Globulin Ratio 1.1 (1.1-2.2) 10/18/18 10/18/18 Range/Units 09:19 09:19 WBC (4.3-11.1) K/mcL RBC (4.19-5.50) M/mcL Hgb (12.9-16.9) g/dL Hct (37.5-50.1) % MCV (83.0-100.0) fL MCH (28.0-33.3) pg MCHC (31.6-35.5) g/dL RDW (11.5-14.5) % Plt Count (140-400) K/mcL MPV (9.4-12.4) fL Immature Gran % (0-4) % Seg Neutrophils % % Lymphocytes % % Monocytes % % Eosinophils % % Basophils % % Neutrophils # (1.6-8.9) K/mcL Lymphocytes # (0.6-4.6) K/mcL Monocytes # (0.0-1.3) K/mcL Eosinophils # (0.0-0.6) K/mcL Basophils # (0.0-0.2) K/mcL PT 14.1 H (9.4-12.1) Seconds INR 1.2 Sodium (136-145) mEq/L Potassium (3.5-5.1) mEq/L Chloride (98-107) mEq/L Carbon Dioxide (23-29) mEq/L BUN (8-23) mg/dL Creatinine (0.70-1.30) mg/dL Est GFR ( Amer) (> 60) Est GFR (Non-Af Amer) (> 60) BUN/Creatinine Ratio (6-26) Glucose (70-105) mg/dL Calculated Osmolality (280-300) Lactic Acid 1.5 (0.5-2.2) mmol/L Calcium (8.6-10.3) mg/dL Magnesium (1.6-2.6) mg/dL Total Bilirubin (0.3-1.0) mg/dL AST (13-39) Units/L ALT (7-52) Units/L Alkaline Phosphatase (34-104) Units/L Troponin I (< 0.04) ng/mL B-Natriuretic Peptide (Less than 100) pg/mL Serum Total Protein (6.4-8.9) g/dL Albumin (3.5-5.7) g/dL Globulin (2.4-3.5) g/dL Albumin/Globulin Ratio (1.1-2.2) Attestation Statement - Attestation Attestation: I reviewed the residents documentation and agree with the residents assessment and plan of care. I have personally had face to face time with the patient. (Brief History, Brief Exam, and MDM) I personally supervised and was present for the serrato/critical portions of the following procedures completed by the resident: (add procedures performed here). [id number] time provided Patient arrives via EMS. He complains of ongoing dyspnea. He recently left the hospital after being endotracheally intubated. He appears older than stated age on exam but otherwise in no acute cardiopulmonary distress upon arrival. I attest to supervising the resident physician's interpretation of the ECG
--- NOTE | 2018-10-18 09:18 | Emergency Department Note ---
Disposition Clinical Impression: Hypoxia, Elevated troponin Dyspnea Qualifiers: Dyspnea type: unspecified Qualified Code(s): R06.00 - Dyspnea, unspecified Disposition: Admitted As Inpatient Time of Disposition: 10:21 General Adult HPI - General Stated complaint: SOB Time Seen by Provider: 10/18/18 08:51 Source: patient, EMS Mode of arrival: EMS Limitations: no limitations Nursing Notes Reviewed: Yes Vital Signs Reviewed: Yes - History of Present Illness HPI Narrative: 63M with PMHx of CHF with EF 35-40% from echo done 1 week ago, COPD, CAD, DM, HTN, HLD, and ND who presents via EMS for ALFONSO. Patient was admitted to the hospital a little over a week ago with flash pulmonary edema, ARDS and was eventually intubated once in the ICU. He spent 5 days on the ventilator and once he was extubated the patient signed out AMA yesterday. Patient states he went home and began feeling worse again before he called EMS for transportation back to the emergency department today. He does not normally wear home oxygen and he was 93% on arrival for EMS. This improved to 100% once placed on 2 L nasal cannula. Patient denies fevers, chest pain, abdominal pain, nausea and vomiting. He does have a history of noncompliance with his medications. Pain Scale: 8 - Related Data Home Medications Medication Instructions Recorded Confirmed ALPRAZolam [Xanax 1 MG Tablet] 1 mg PO BID 04/13/18 10/11/18 Gabapentin 800 mg PO TID 04/13/18 10/11/18 Ibuprofen [Ibu-200] 400 mg PO DAILY PRN 04/13/18 10/11/18 Insulin Degludec [Tresiba 30 unit SQ DAILY 04/13/18 10/11/18 Flextouch U-200] Zolpidem [Ambien] 10 mg PO HS PRN 04/13/18 10/11/18 Citalopram Hydrobromide 60 mg PO DAILY 10/11/18 10/11/18 [Citalopram HBr] Hydromorphone HCl [Dilaudid] 8 mg PO Q4H PRN 10/13/18 10/13/18 Previous Rx's Medication Instructions Recorded Albuterol Sulfate [Proventil 2 puff IH Q4H PRN inhaler 04/15/18 Inhaler] LevETIRAcetam [Keppra] 750 mg PO BID #30 tablet 08/01/18 Potassium Citrate [Urocit-K] 20 meq PO TID 3 Days #9 tablet.er 08/27/18 Carvedilol [Coreg] 3.125 mg PO BIDWM 30 Days #60 10/17/18 tablet Lisinopril [Zestril] 2.5 mg PO DAILY #30 tablet 10/17/18 Nitroglycerin 0.4 mg SL Q5MPRN PRN #10 tab.subl 10/17/18 Allergies Allergy/AdvReac Type Severity Reaction Status Date / Time No Known Allergies Allergy Verified 10/11/18 13:42 All systems ED: reviewed and negative except as stated. Review of Systems: As Per HPI Constitutional: Reports: weakness. Denies: fever, chills Cardiovascular: Reports: dyspnea on exertion. Denies: chest pain, palpitations Respiratory: Reports: dyspnea. Denies: cough, wheezes Gastrointestinal: Denies: abdominal pain, nausea, vomiting Genitourinary: Denies: dysuria Musculoskeletal: Denies: back pain Integumentary: Denies: rash Neurological: Denies: headache Endocrine: Reports: fatigue Past Medical History - Past Medical History Attestation: Yes The following information was validated with the patient. Source: patient Medical history: Reports: arthritis, asthma, CHF, COPD, coronary artery disease, diabetes, GERD, hyperlipidemia, hypertension, myocardial infarction, peripheral artery disease, seizures, other Surgical history: Reports: angioplasty/stent, cholecystectomy, herniorrhaphy, knee replacement, orthopedic, other, other Psychiatric history: Reports: anxiety, depression, other - Social History Smoking Status: Former smoker Smokeless Tobacco Status: No Alcohol use: Reports: none Drug use: Reports: none Physical Exam - General Limitations: no limitations General appearance: alert, in no apparent distress - Head Head exam: atraumatic, normocephalic - Eye Eye exam: Present: normal appearance, EOMI - Chest Chest inspection: Present: normal inspection. Absent: tenderness, rash - Respiratory Respiratory exam: Present: normal lung sounds bilaterally, other (tachypnic while talking, only able to speak 3-4 word sentances). Absent: wheezes - Cardiovascular Cardiovascular exam: Present: regular rate, normal rhythm - Abdominal Exam Abdominal exam: Present: soft, Non-Tender. Absent: distention, guarding, rebound, rigidity - Extremities Exam Extremities exam: Present: normal inspection. Absent: tenderness, pedal edema - Neurological Exam Neurological exam: Present: alert, oriented X3 - Psychiatric Psychiatric exam: Present: flat affect - Skin Skin exam: Present: warm, dry, intact Course Vital Signs Temperature 98.2 F 10/18/18 09:04 Pulse Rate 89 10/18/18 09:04 Respiratory Rate 16 10/18/18 09:04 Blood Pressure 142/86 10/18/18 09:04 O2 Sat by Pulse Oximetry 96 10/18/18 09:04 Temperature 98.2 F 10/18/18 09:04 Pulse Rate 89 10/18/18 09:04 Respiratory Rate 16 10/18/18 09:04 Blood Pressure 142/86 10/18/18 09:04 O2 Sat by Pulse Oximetry 96 10/18/18 09:04 Oxygen Delivery Oxygen Delivery Room Air Medical Decision Making - MDM Narrative Medical decision making narrative: Patient presented with worsening shortness of breath the point where he did not feel safe being at home again today. We will obtain EKG, chest x-ray, basic labs, troponin, BNP, blood cultures and lactate and plan on readmission to the hospital as the patient was hypoxic on arrival. 1004 - patient's troponin is elevated at 0.26 which is significantly decreased from his previous troponin which was 5.33 on 10/11. Chest x-ray shows improvement in his airspace disease since previous x-ray obtained 10/13 when he was still intubated. BNP is mildly elevated but has decreased since previous admission. 101 - pt has been accepted by Dr. Elise - Medical Records Medical records reviewed: Yes I reviewed the patient's medical records. - Lab Data Lab results reviewed: Yes I reviewed the patient's lab results. Result diagrams: 10/18/18 09:10/18/18 09:19 Lab Results 10/18/18 10/18/18 10/18/18 Range/Units : 09: 09:19 WBC 6.3 (4.3-11.1) K/mcL RBC 4.17 L (4.19-5.50) M/mcL Hgb 12.8 L D (12.9-16.9) g/dL Hct 38.8 (37.5-50.1) % MCV 93.0 (83.0-100.0) fL MCH 30.7 (28.0-33.3) pg MCHC 33.0 (31.6-35.5) g/dL RDW 15.8 H (11.5-14.5) % Plt Count 374 (140-400) K/mcL MPV 8.7 L (9.4-12.4) fL Immature Gran % 0.6 (0-4) % Seg Neutrophils % 62.6 % Lymphocytes % 26.7 % Monocytes % 7.7 % Eosinophils % 1.9 % Basophils % 0.5 % Neutrophils # 4.0 (1.6-8.9) K/mcL Lymphocytes # 1.7 (0.6-4.6) K/mcL Monocytes # 0.5 (0.0-1.3) K/mcL Eosinophils # 0.1 (0.0-0.6) K/mcL Basophils # 0.0 (0.0-0.2) K/mcL PT (9.4-12.1) Seconds INR Sodium 138 (136-145) mEq/L Potassium 3.5 (3.5-5.1) mEq/L Chloride 93 L (98-107) mEq/L Carbon Dioxide 35 H (23-29) mEq/L BUN 11 (8-23) mg/dL Creatinine 0.57 L (0.70-1.30) mg/dL Est GFR ( Amer) > 60 (> 60) Est GFR (Non-Af Amer) > 60 (> 60) BUN/Creatinine Ratio 19 (6-26) Glucose 243 H (70-105) mg/dL Calculated Osmolality 293 (280-300) Lactic Acid (0.5-2.2) mmol/L Calcium 8.9 (8.6-10.3) mg/dL Magnesium 1.7 (1.6-2.6) mg/dL Total Bilirubin 0.4 (0.3-1.0) mg/dL AST 12 L (13-39) Units/L ALT 17 (7-52) Units/L Alkaline Phosphatase 111 H (34-104) Units/L Troponin I 0.26 H* (< 0.04) ng/mL B-Natriuretic Peptide 482 H (Less than 100) pg/mL Serum Total Protein 6.8 (6.4-8.9) g/dL Albumin 3.5 (3.5-5.7) g/dL Globulin 3.3 (2.4-3.5) g/dL Albumin/Globulin Ratio 1.1 (1.1-2.2) 10/18/18 10/18/18 Range/Units 09:19 09:19 WBC (4.3-11.1) K/mcL RBC (4.19-5.50) M/mcL Hgb (12.9-16.9) g/dL Hct (37.5-50.1) % MCV (83.0-100.0) fL MCH (28.0-33.3) pg MCHC (31.6-35.5) g/dL RDW (11.5-14.5) % Plt Count (140-400) K/mcL MPV (9.4-12.4) fL Immature Gran % (0-4) % Seg Neutrophils % % Lymphocytes % % Monocytes % % Eosinophils % % Basophils % % Neutrophils # (1.6-8.9) K/mcL Lymphocytes # (0.6-4.6) K/mcL Monocytes # (0.0-1.3) K/mcL Eosinophils # (0.0-0.6) K/mcL Basophils # (0.0-0.2) K/mcL PT 14.1 H (9.4-12.1) Seconds INR 1.2 Sodium (136-145) mEq/L Potassium (3.5-5.1) mEq/L Chloride (98-107) mEq/L Carbon Dioxide (23-29) mEq/L BUN (8-23) mg/dL Creatinine (0.70-1.30) mg/dL Est GFR ( Amer) (> 60) Est GFR (Non-Af Amer) (> 60) BUN/Creatinine Ratio (6-26) Glucose (70-105) mg/dL Calculated Osmolality (280-300) Lactic Acid 1.5 (0.5-2.2) mmol/L Calcium (8.6-10.3) mg/dL Magnesium (1.6-2.6) mg/dL Total Bilirubin (0.3-1.0) mg/dL AST (13-39) Units/L ALT (7-52) Units/L Alkaline Phosphatase (34-104) Units/L Troponin I (< 0.04) ng/mL B-Natriuretic Peptide (Less than 100) pg/mL Serum Total Protein (6.4-8.9) g/dL Albumin (3.5-5.7) g/dL Globulin (2.4-3.5) g/dL Albumin/Globulin Ratio (1.1-2.2) - Radiology Data Radiology results reviewed: Yes I reviewed the patient's radiology results. - EKG Data EKG #1 EKG attestation: Yes I reviewed and interpreted this EKG. EKG results narrative: EKG obtained at 854 on 10/18/2018 Heart rate 92 bpm, CO interval 138, QRS duration 71, QT 422, QTC 523 Sinus rhythm with a prolonged QT interval. No signs of ST segment elevations or depressions. No significant changes when compared to previous EKG dated 10/12/2018 with the exception of the rate.
[2018-10-18 09:36] LABS: Basophils % 0.5 %; Eosinophils # 0.1 K/mcL (0.0-0.6); Eosinophils % 1.9 %; Hematocrit 38.8 % (37.5-50.1); Immature Granulocytes % 0.6 % (0-4); Lymphocytes # 1.7 K/mcL (0.6-4.6); Lymphocytes % 26.7 %; Mean Corpuscular Hemoglobin 30.7 pg (28.0-33.3); Mean Platelet Volume 8.7 fL (9.4-12.4); Monocytes # 0.5 K/mcL (0.0-1.3); Monocytes % 7.7 %; Platelet Count 374 K/mcL (140-400); Red Blood Count 4.17 M/mcL (4.19-5.50); Red Cell Distribution Width 15.8 % (11.5-14.5); Segmented Neutrophils % 62.6 %; White Blood Count 6.3 K/mcL (4.3-11.1)
[2018-10-18 09:44] LABS: INR 1.2; Prothrombin Time 14.1 Seconds (9.4-12.1)
[2018-10-18 09:54] LABS: Hemoglobin 12.8 g/dL (12.9-16.9)
[2018-10-18 10:00] LABS: Alanine Aminotransferase 17 Units/L (7-52); Albumin 3.5 g/dL (3.5-5.7); Albumin/Globulin Ratio 1.1 (1.1-2.2); Alkaline Phosphatase 111 Units/L (34-104); Aspartate Amino Transferase 12 Units/L (13-39); BUN/Creatinine Ratio 19 (6-26); Bilirubin,Total 0.4 mg/dL (0.3-1.0); Blood Urea Nitrogen 11 mg/dL (8-23); Calcium 8.9 mg/dL (8.6-10.3); Carbon Dioxide 35 mEq/L (23-29); Chloride 93 mEq/L (98-107); Globulin 3.3 g/dL (2.4-3.5); Glucose 243 mg/dL (70-105); Magnesium 1.7 mg/dL (1.6-2.6); Osmolality,Calculated 293 (280-300); Potassium 3.5 mEq/L (3.5-5.1); Sodium 138 mEq/L (136-145); Total Protein 6.8 g/dL (6.4-8.9); Troponin I 0.26 ng/mL (< 0.04); eGFR For African Americans > 60 (> 60); eGFR For Non-African Americans > 60 (> 60)
[2018-10-18] MEDS ORDERED: Nitroglycerin 0.4 MG TAB.SUBL SL PRN ×2 (10:11→12:06)
[2018-10-18] MEDS ORDERED: Acetaminophen 325 MG TABLET PO PRN (12:05)
[2018-10-18] MEDS ORDERED: Naloxone 0.4 MG/ML INJ IVP PRN (12:05)
[2018-10-18] MEDS ORDERED: *HR* HYDROcodone/Acet 5/325 mg TABLET PO PRN (12:05)
[2018-10-18] MEDS: ALPRAZolam 1 MG TABLET PO SCH ×2 (12:46→20:13)
[2018-10-18] MEDS: *HR* HYDROmorphone 4 MG TABLET PO PRN (12:46)
[2018-10-18] MEDS: Gabapentin 400 MG CAPSULE PO SCH ×2 (14:14→20:12)
[2018-10-18] MEDS: Ondansetron 4 MG/2 ML VIAL IVP PRN ×2 (14:14→21:35)
[2018-10-18] MEDS ORDERED: *HR* Dextrose 50 % in Water (Syg) 50 ML SYRINGE IVP PRN (14:53)
[2018-10-18] MEDS ORDERED: D5% in Water 1,000 ML IVC PRN (14:53)
[2018-10-18] MEDS ORDERED: Dextrose Gel 15 GM/37.5 ML TUBE PO PRN ×2 (14:53)
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
[2018-10-18] MEDS: Ipratropium/Albuterol Neb 3 ML IH SCH ×2 (16:14→19:50)
[2018-10-18] MEDS: Insulin LISPRO 300 UNITS/3 ML VIAL SQ SCH (17:39)
[2018-10-18] MEDS: MethylPREDNISolone 40 MG/ML VIAL IVP SCH (17:39)
[2018-10-18] MEDS: Nicotine 21 MG PATCH.TD24 TD SCH (18:21)
[2018-10-18] MEDS: levETIRAcetam 250 MG TABLET PO SCH (20:12)
[2018-10-18] MEDS: Insulin DETEMIR 100 UNIT/ML X5UNITS SQ SCH (20:13)
[2018-10-18] MEDS ORDERED: ALPRAZolam 1 MG TABLET PO SCH (21:00)
[2018-10-18] MEDS ORDERED: Insulin LISPRO 300 UNITS/3 ML VIAL SQ SCH (21:00)
[2018-10-19] MEDS: Ipratropium/Albuterol Neb 3 ML IH SCH ×4 (00:25→10:52)
--- NOTE | 2018-10-19 00:27 | Electrocardiograph Report ---
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
[2018-10-19] MEDS: *HR* HYDROmorphone 4 MG TABLET PO PRN (03:47)
[2018-10-19 04:45] LABS: Hematocrit 38.2 % (37.5-50.1); Hemoglobin 12.8 g/dL (12.9-16.9); Mean Corpuscular HGB Conc 33.5 g/dL (31.6-35.5); Mean Corpuscular Hemoglobin 30.7 pg (28.0-33.3); Mean Corpuscular Volume 91.6 fL (83.0-100.0); Mean Platelet Volume 9.1 fL (9.4-12.4); Platelet Count 437 K/mcL (140-400); Red Blood Count 4.17 M/mcL (4.19-5.50); Red Cell Distribution Width 15.4 % (11.5-14.5); White Blood Count 5.4 K/mcL (4.3-11.1)
[2018-10-19 05:04] LABS: BUN/Creatinine Ratio 26 (6-26); Blood Urea Nitrogen 14 mg/dL (8-23); Calcium 9.2 mg/dL (8.6-10.3); Carbon Dioxide 31 mEq/L (23-29); Chloride 93 mEq/L (98-107); Chol/HDL Ratio 5.1 (0-4.9); Cholesterol 239 mg/dL (< 200); Glucose 207 mg/dL (70-105); HDL Cholesterol 47 mg/dL (40-59); LDL Cholesterol,Calculated 162 mg/dL (0-99); Magnesium 1.7 mg/dL (1.6-2.6); Osmolality,Calculated 295 (280-300); Potassium 3.5 mEq/L (3.5-5.1); Sodium 139 mEq/L (136-145); Triglycerides 152 mg/dL (< 150); eGFR For African Americans > 60 (> 60); eGFR For Non-African Americans > 60 (> 60)
[2018-10-19] MEDS: MethylPREDNISolone 40 MG/ML VIAL IVP SCH (05:30)
[2018-10-19 08:22] VITALS: BP 162/88
[2018-10-19] MEDS ORDERED: CITALOPRAM HYDROBROMIDE 60 MG PO SCH (09:00)
[2018-10-19] MEDS ORDERED: Aspirin Enteric Coated 81 MG Tablet PO SCH (09:00)
[2018-10-19] MEDS ORDERED: Furosemide 20 MG/2 ML VIAL IVP SCH (09:12)
[2018-10-19] MEDS: Insulin LISPRO 300 UNITS/3 ML VIAL SQ SCH (09:34)
[2018-10-19] MEDS: Gabapentin 400 MG CAPSULE PO SCH (09:34)
[2018-10-19] MEDS: Nicotine 21 MG PATCH.TD24 TD SCH (09:34)
[2018-10-19] MEDS: levETIRAcetam 250 MG TABLET PO SCH (09:34)
[2018-10-19] MEDS: ALPRAZolam 1 MG TABLET PO SCH (09:34)
[2018-10-19] MEDS: Insulin DETEMIR 100 UNIT/ML X5UNITS SQ SCH (10:42)
--- NOTE | 2018-10-19 13:02 | Discharge Summary ---
- NOTES TO OUTPATIENT PROVIDER Notes to Outpatient Provider: f/u with PCP in one week. f/u with Pulmonary in 1-2 weeks. f/u with Cardiology in 1-2 weeks. Orders not resulted at time of discharge: Pending orders 10/18/18 09:19 Culture,Blood [BC] Stat Date of Encounter: 10/19/18 Time of Encounter: 12:56 - Discharge Diagnosis (1) COPD with acute exacerbation Priority: Primary Status: Acute (2) Elevated troponin Priority: Primary Status: Acute (3) Chronic systolic CHF (congestive heart failure) Priority: Secondary Status: Acute (4) Tobacco dependence Priority: Secondary Status: Acute (5) Protein-calorie malnutrition, moderate Priority: Secondary Status: Acute (6) Physical deconditioning Priority: Secondary Status: Acute (7) Chronic narcotic dependence Priority: Secondary Status: Acute (8) CAD (coronary artery disease), [place] coronary artery Priority: Secondary Status: Chronic Qualifiers: [place] vs. transplanted heart: [place] heart Associated angina: without angina Qualified Code(s): I25.10 - Atherosclerotic heart disease of [place] coronary artery without angina pectoris (9) Chronic back pain Priority: Secondary Status: Chronic Qualifiers: Back pain location: low back pain Back pain laterality: unspecified Sciatica presence: with sciatica Sciatica laterality: sciatica laterality unspecified Qualified Code(s): M54.40 - Lumbago with sciatica, unspecified side; G89.29 - Other chronic pain (10) DM type 2 (diabetes mellitus, type 2) Priority: Secondary Status: Chronic Qualifiers: Diabetes mellitus half-way insulin use: without cell tender use Diabetes mellitus complication status: without complication Qualified Code(s): E11.9 - Type 2 diabetes mellitus without complications (11) HLD (hyperlipidemia) Priority: Secondary Status: Chronic Qualifiers: Hyperlipidemia type: pure hypercholesterolemia Qualified Code(s): E78.00 - Pure hypercholesterolemia, unspecified; E78.0 - Pure hypercholesterolemia (12) HTN (hypertension) Priority: Secondary Status: Chronic Qualifiers: Hypertension type: essential hypertension Qualified Code(s): I10 - Essential (primary) hypertension Hospital course: Mr. Craig is a 63 year old male with PMH of CAD s/p multiple stents, systolic CHF with LVEF 35-40%, HTN, HDL, DM2, seizure disorder, and COPD who recently admitted in our ICU with the flash pulmonary edema was intubated, also happen to have NSTEMI went for [facility] which showed single vessel moderate CAD, recommended medical management eventually patient was transferred to [facility] from where he left against medical advice y/d evening now he came back to ER today complaining about shortness of breath and cough with expectoration. He denied any chest pain. His initial trop @ 0.26, however he had peak Trop @ 5.3 during last hospitalization. His CXR showed improved vascular congestion. Patient stated he is still smoking 1 pack per day. He is more alert, awake, O x 4. Patient complaining feeling very lethargic, weak and unable to ambulate well. He was admitted in the hospital and placed him on library monitor. He was started on IV steroids and frequent bronchodilator therapy. Patient's symptoms improved today. He is breathing comfortably on room air. His troponin trended down to 0.16 and a dynamic. Patient was evaluated by PT/OT who recommend ECF placement for his physical deconditioning. However patient refused to go to ECF and he wanted to leave against medical advice if I do not discharge him home with home health services. I tried talk him into it and explained to him about the complications with his deconditioning he is high risk for falls and he needs supervision care due to his complex medical problems. However he still decided to go home with home health services only . - Time Spent with Patient Total time spent providing and/or coordinating discharge services: - Discharge Medications Prescriptions: New Aspirin Enteric Coated [Aspirin EC] 81 mg PO DAILY #30 tablet. Furosemide [Lasix] 20 mg PO DAILY #30 tablet predniSONE [PredniSONE] 40 mg PO DAILY #10 tablet Albuterol Sulfate [Proventil Inhaler] 2 puff IH Q6HR PRN #1 hfa.aer.ad PRN Reason: Shortness Of Breath Budesonide/Formoterol 160/4.5 [Symbicort 160/4.5] 2 puff IH BIDR #1 hfa.aer.ad Carvedilol [Coreg] 12.5 mg PO BIDWM #60 tablet Continued Zolpidem [Ambien] 10 mg PO HS PRN PRN Reason: Sleep Insulin Degludec [Tresiba Flextouch U-200] 30 unit SQ DAILY Gabapentin 800 mg PO TID ALPRAZolam [Xanax 1 MG Tablet] 1 mg PO BID Albuterol Sulfate [Proventil Inhaler] 2 puff IH Q4H PRN inhaler PRN Reason: Shortness Of Breath LevETIRAcetam [Keppra] 750 mg PO BID #30 tablet Potassium Citrate [Urocit-K] 20 meq PO TID 3 Days #9 tablet.er Citalopram Hydrobromide [Citalopram HBr] 60 mg PO DAILY Hydromorphone HCl [Dilaudid] 8 mg PO Q4H PRN PRN Reason: Pain Nitroglycerin 0.4 mg SL Q5MPRN PRN #10 tab.subl PRN Reason: Chest Pain Changed Lisinopril [Zestril] 5 mg PO DAILY #30 tablet Discontinued Ibuprofen [Ibu-200] 400 mg PO DAILY PRN PRN Reason: Headache Carvedilol [Coreg] 3.125 mg PO BIDWM 30 Days #60 tablet Home Medications: ALPRAZolam [Xanax 1 MG Tablet] 1 mg PO BID 04/13/18 [History] Gabapentin 800 mg PO TID 04/13/18 [History] Insulin Degludec [Tresiba Flextouch U-200] 30 unit SQ DAILY 04/13/18 [History] Zolpidem [Ambien] 10 mg PO HS PRN 04/13/18 [History] Albuterol Sulfate [Proventil Inhaler] 2 puff IH Q4H PRN inhaler 04/15/18 [Rx] LevETIRAcetam [Keppra] 750 mg PO BID #30 tablet 08/01/18 [Rx] Potassium Citrate [Urocit-K] 20 meq PO TID 3 Days #9 tablet.er 08/27/18 [Rx] Citalopram Hydrobromide [Citalopram HBr] 60 mg PO DAILY 10/11/18 [History] Hydromorphone HCl [Dilaudid] 8 mg PO Q4H PRN 10/13/18 [History] Nitroglycerin 0.4 mg SL Q5MPRN PRN #10 tab.subl 10/17/18 [Rx] Albuterol Sulfate [Proventil Inhaler] 2 puff IH Q6HR PRN #1 hfa.aer.ad 10/19/18 [Rx] Aspirin Enteric Coated [Aspirin EC] 81 mg PO DAILY #30 tablet. 10/19/18 [Rx] Budesonide/Formoterol 160/4.5 [Symbicort 160/4.5] 2 puff IH BIDR #1 hfa.aer.ad 10/19/18 [Rx] Carvedilol [Coreg] 12.5 mg PO BIDWM #60 tablet 10/19/18 [Rx] Furosemide [Lasix] 20 mg PO DAILY #30 tablet 10/19/18 [Rx] Lisinopril [Zestril] 5 mg PO DAILY #30 tablet 10/19/18 [Rx] predniSONE [PredniSONE] 40 mg PO DAILY #10 tablet 10/19/18 [Rx] Allergies/Adverse Reactions: Allergy/AdvReac Type Severity Reaction Status Date / Time No Known Allergies Allergy Verified 10/11/18 13:42 Date of admission: 10/18/18 11:32 Primary care physician: Cyrus Coyne DO Consults: 10/18/18 15:04 Consult to Physical Therapy [CONS] Routine Comment: Evaluate, develop and implement POC Reason for Consult: Physical deconditioning Does patient have active BEDREST order?: No Is patient medically & hemodynamically stable?: Yes Patient assessed for mobility or mobilized this visit?: Yes OT [Consult to Occupational Therapy] [CONS] Routine Comment: Evaluate, develop and implement POC Reason for Consult: Physical deconditioning Does patient have active BEDREST order?: No Is patient medically & hemodynamically stable?: Yes Patient assessed for mobility or mobilized this visit?: Yes 10/18/18 16:02 Consult to Nutrition [CONS] Routine Comment: Consulting Provider: NUTRITION Reason for Dietary Consult: PO Supplementation 10/19/18 08:08 Consult to Nurse Navigator [CONS] Routine Comment: COPD - Constitutional Vitals: Temp Pulse Resp BP Pulse Ox 97.9 F 95 17 162/88 92 10/19/18 08:16 10/19/18 08:16 10/19/18 08:16 10/19/18 08:16 10/19/18 08:16 General appearance: Present: cooperative, A&O X 3, no acute distress, answers questions appropriately Exam: Gen: Alert, awake, Oriented to time,place and person Chest: Diminished breath sounds B/L, No wheezing, No crackles, No rales Heart: S1S2+ RRR No murmurs Abd: Soft, NT, BS +, No organomegaly Ext: No edema, pulses are palpable, No calf tenderness Neuro : No acute focal neuro deficits noticed Skin: No rash. - Patient Status Disposition: Home Health Service Condition: Good Overall status at discharge: patient is back to baseline - Discharge Instructions Follow Up With: Cyrus Coyne DO [Primary Care Provider] - Navjot Canela MD [Partnered Physician] - Gibran Adams MD [Partnered Physician] - Forms: ED Satisfaction Letter - Diet and Activity Activity: increase activity as tolerated Diet: low salt diet
--- NOTE | 2018-10-19 14:21 | Physician Discharge Referral ---
Home Health/Hosp Referral Info Transfer to: Home Health Provider in Charge Post Discharge: PCP - Diagnosis (1) COPD with acute exacerbation Status: Acute (2) Elevated troponin Status: Acute (3) Chronic systolic CHF (congestive heart failure) Status: Acute (4) Tobacco dependence Status: Acute (5) Protein-calorie malnutrition, moderate Status: Acute (6) Physical deconditioning Status: Acute (7) Chronic narcotic dependence Status: Acute (8) CAD (coronary artery disease), [place] coronary artery Status: Chronic (9) Chronic back pain Status: Chronic (10) DM type 2 (diabetes mellitus, type 2) Status: Chronic (11) HLD (hyperlipidemia) Status: Chronic (12) HTN (hypertension) Status: Chronic - Respiratory Orders Smoking Cessation: Smoking cessation has been advised. For more information, call the [place] Tobacco Quit Line at 5-104-GIGE-NOW. - Services Needed Following services are medically necessary services: Nursing, Physical Therapy, Occupational Therapy - Transfer Medications Prescriptions: Aspirin Enteric Coated [Aspirin EC] 81 mg PO DAILY #30 tablet. Carvedilol [Coreg] 12.5 mg PO BIDWM #60 tablet Furosemide [Lasix] 20 mg PO DAILY #30 tablet predniSONE [PredniSONE] 40 mg PO DAILY #10 tablet Albuterol Sulfate [Proventil Inhaler] 2 puff IH Q6HR PRN #1 hfa.aer.ad PRN Reason: Shortness Of Breath Budesonide/Formoterol 160/4.5 [Symbicort 160/4.5] 2 puff IH BIDR #1 hfa.aer.ad Home Medications: ALPRAZolam [Xanax 1 MG Tablet] 1 mg PO BID 04/13/18 [History] Gabapentin 800 mg PO TID 04/13/18 [History] Insulin Degludec [Tresiba Flextouch U-200] 30 unit SQ DAILY 04/13/18 [History] Zolpidem [Ambien] 10 mg PO HS PRN 04/13/18 [History] Albuterol Sulfate [Proventil Inhaler] 2 puff IH Q4H PRN inhaler 04/15/18 [Rx] LevETIRAcetam [Keppra] 750 mg PO BID #30 tablet 08/01/18 [Rx] Potassium Citrate [Urocit-K] 20 meq PO TID 3 Days #9 tablet.er 08/27/18 [Rx] Citalopram Hydrobromide [Citalopram HBr] 60 mg PO DAILY 10/11/18 [History] Hydromorphone HCl [Dilaudid] 8 mg PO Q4H PRN 10/13/18 [History] Nitroglycerin 0.4 mg SL Q5MPRN PRN #10 tab.subl 10/17/18 [Rx] Albuterol Sulfate [Proventil Inhaler] 2 puff IH Q6HR PRN #1 hfa.aer.ad 10/19/18 [Rx] Aspirin Enteric Coated [Aspirin EC] 81 mg PO DAILY #30 tablet.dr 10/19/18 [Rx] Budesonide/Formoterol 160/4.5 [Symbicort 160/4.5] 2 puff IH BIDR #1 hfa.aer.ad 10/19/18 [Rx] Carvedilol [Coreg] 12.5 mg PO BIDWM #60 tablet 10/19/18 [Rx] Furosemide [Lasix] 20 mg PO DAILY #30 tablet 10/19/18 [Rx] Lisinopril [Zestril] 5 mg PO DAILY #30 tablet 10/19/18 [Rx] predniSONE [PredniSONE] 40 mg PO DAILY #10 tablet 10/19/18 [Rx] Allergies/Adverse Reactions: Allergy/AdvReac Type Severity Reaction Status Date / Time No Known Allergies Allergy Verified 10/11/18 13:42 Certification: Further, I certify that my clinical findings support that this patient is h omebound (i.e. absences from home require considerable and taxing effort and are for medical reasons or caodaism services or infrequently or short duration when for other reasons) because: Homebound Reason: Patient requires assistance of a person or device to safely leave home Attestation: My signature below is to certify that this patient is under my care and that I, or nurse practitioner, or a physician's pediatric medical assistant working with me, has a [id number] encounter with this patient.
== END 2018-10-19 13:31 | disposition home health service (06) ==
LOC: EMEROOARM 08:48 → 3BNU 08:48
PROVIDERS: ADMIT Internal Medicine Nephrology; ATTEND Internal Medicine Nephrology

== ENCOUNTER 2018-12-02 16:44 | Inpatient (IN) ==
[2018-12-02] MEDS ORDERED: *HR* FentaNYL (PF) 1,000 MCG/20 ML VIAL ONE (17:02)
[2018-12-02] MEDS ORDERED: Isovue-370 500 ML BOTTLE IVP ONE (17:03)
[2018-12-02] MEDS: FentaNYL (PF) 1,000 MCG in 0.9 % Sodium Chloride 80 ML IVC SCH ×2 (17:18→23:50)
[2018-12-02 17:26] LABS: Basophils # 0.1 K/mcL (0.0-0.2); Basophils % 0.7 %; Eosinophils # 0.1 K/mcL (0.0-0.6); Eosinophils % 0.7 %; Hemoglobin 12.6 g/dL (12.9-16.9); Immature Granulocytes % 0.4 % (0-4); Lymphocytes # 2.4 K/mcL (0.6-4.6); Lymphocytes % 29.4 %; Mean Corpuscular HGB Conc 32.3 g/dL (31.6-35.5); Mean Corpuscular Hemoglobin 31.1 pg (28.0-33.3); Mean Corpuscular Volume 96.3 fL (83.0-100.0); Mean Platelet Volume 9.2 fL (9.4-12.4); Monocytes # 0.4 K/mcL (0.0-1.3); Monocytes % 4.5 %; Neutrophils # 5.2 K/mcL (1.6-8.9); Platelet Count 349 K/mcL (140-400); Red Blood Count 4.05 M/mcL (4.19-5.50); Red Cell Distribution Width 16.5 % (11.5-14.5); Segmented Neutrophils % 64.3 %
[2018-12-02 17:31] LABS: INR 0.9; Prothrombin Time 10.6 Seconds (9.4-12.1)
[2018-12-02 17:33] LABS: Activated Partial Thrombo Time 32.7 Seconds (26.0-36.0)
[2018-12-02 18:00] LABS: Alanine Aminotransferase 14 Units/L (7-52); Albumin 4.4 g/dL (3.5-5.7); Albumin/Globulin Ratio 1.5 (1.1-2.2); Alkaline Phosphatase 131 Units/L (34-104); Aspartate Amino Transferase 15 Units/L (13-39); BUN/Creatinine Ratio 9 (6-26); Bilirubin,Direct 0.1 mg/dL (0.0-0.2); Bilirubin,Indirect 0.3 mg/dL (0.0-1.2); Bilirubin,Total 0.4 mg/dL (0.3-1.0); Blood Urea Nitrogen 7 mg/dL (8-23); Calcium 9.8 mg/dL (8.6-10.3); Carbon Dioxide 25 mEq/L (23-29); Chloride 104 mEq/L (98-107); Ethanol < 10 mg/dL (Less than 10); Globulin 2.9 g/dL (2.4-3.5); Glucose 277 mg/dL (70-105); Osmolality,Calculated 294 (280-300); Potassium 4.3 mEq/L (3.5-5.1); Sodium 138 mEq/L (136-145); Thyroid Stimulating Hormone 1.073 mcIU/mL (0.340-5.600); Total Protein 7.3 g/dL (6.4-8.9); Troponin I < 0.03 ng/mL (< 0.04); eGFR For African Americans > 60 (> 60); eGFR For Non-African Americans > 60 (> 60)
[2018-12-02] MEDS ORDERED: methylPREDNISolone 125 MG/2 ML VIAL ONE (18:39)
[2018-12-02] MEDS ORDERED: methylPREDNISolone 125 MG/2 ML VIAL IVP ONE (18:45)
[2018-12-02 18:50] LABS: ABG Base Excess 0 mEq/L (-2 to 3); ABG HCO3 25 mEq/L (21-27); ABG Oxygen Saturation 100 % (95-98); ABG PCO2 39 mmHg (35-45); ABG PH 7.41 pH Units (7.32-7.45); ABG PO2 446 mmHg (85-104); ABG TCO2 26 mEq/L (20-26); Blood Gas Modality ASSIST CONTROL; Blood Gas VT 500 cc
[2018-12-02 19:50] LABS: Bilirubin,Urine Negative (Negative); Blood,Urine Moderate (Negative); Clarity,Urine Clear (Clear); Color,Urine Yellow (Yellow); Glucose,Urine (UA) 250 mg/dL (Normal); Ketones,Urine Negative (Negative); Leukocyte Esterase,Urine Negative (Negative); Nitrite,Urine Negative (Negative); PH,Urine 5.5 pH Units (5.0-8.0); Protein,Urine 100 mg/dL (Neg-Trace); Specific Gravity,Urine > 1.030 (1.010-1.025); Urobilinogen,Urine Normal (Normal)
[2018-12-02 19:53] LABS: Bacteria,Urine None Seen per hpf (None-Few); Hyaline Casts,Urine None Seen per lpf (None-Few); RBC,Urine 15-30 per hpf (0-3); Squamous Epithelial Cell,Urine Many per lpf (None-Few); WBC,Urine 0-3 per hpf (0-3)
[2018-12-02 20:08] LABS: Amphetamine Screen,Urine Negative ng/mL (Cutoff=1000); Barbiturate Screen,Urine Negative ng/mL (Cutoff=200); Benzodiazepines Screen,Urine Positive ng/mL (Cutoff=200); Cannabinoid Screen,Urine Negative ng/mL (Cutoff = 50); Cocaine Screen,Urine Negative ng/mL (Cutoff= 300); Opiate Screen,Urine Negative ng/mL (Cutoff=300); Phencyclidine Screen,Urine Negative ng/mL (Cutoff=25)
[2018-12-02] MEDS ORDERED: Piperacillin/Tazobactam 3.375 GM in 0.9 % Sodium Chloride Mini Bag 100 ML IVPB ONE (22:19)
[2018-12-02] MEDS ORDERED: levoFLOXacin 750 MG/150 ML 750 MG/150 ML BAG IVPB ONE ×2 (22:33→23:00)
[2018-12-02 23:03] LABS: ABG Base Excess -1 mEq/L (-2 to 3); ABG HCO3 25 mEq/L (21-27); ABG Oxygen Saturation 99 % (95-98); ABG PCO2 44 mmHg (35-45); ABG PH 7.36 pH Units (7.32-7.45); ABG PO2 157 mmHg (85-104); ABG TCO2 26 mEq/L (20-26); Blood Gas Modality ASSIST CONTROL; Blood Gas VT 500 cc
[2018-12-02] MEDS ORDERED: Naloxone 0.4 MG/ML INJ IVP PRN (23:32)
[2018-12-03] MEDS: FentaNYL (PF) 1,000 MCG in 0.9 % Sodium Chloride 80 ML IVC SCH (04:26)
[2018-12-03] MEDS ORDERED: Insulin LISPRO 300 UNITS/3 ML VIAL SQ ONE (04:47)
[2018-12-03] MEDS ORDERED: Dextrose Gel 15 GM/37.5 ML TUBE PO PRN ×2 (04:55)
[2018-12-03] MEDS ORDERED: D5% in Water 1,000 ML IVC PRN (04:55)
[2018-12-03] MEDS ORDERED: *HR* Dextrose 50 % in Water (Syg) 50 ML SYRINGE IVP PRN (04:55)
[2018-12-03 05:31] LABS: ABG Base Excess -3 mEq/L (-2 to 3); ABG HCO3 23 mEq/L (21-27); ABG Oxygen Saturation 99 % (95-98); ABG PCO2 42 mmHg (35-45); ABG PH 7.35 pH Units (7.32-7.45); ABG PO2 154 mmHg (85-104); ABG TCO2 24 mEq/L (20-26); Blood Gas Modality ASSIST CONTROL; Blood Gas VT 500 cc
[2018-12-03] MEDS: Insulin LISPRO 300 UNITS/3 ML VIAL SQ SCH ×2 (05:31→08:03)
[2018-12-03] MEDS ORDERED: Insulin LISPRO 300 UNITS/3 ML VIAL SQ SCH (06:00)
[2018-12-03] MEDS ORDERED: *HR* Heparin 5,000 UNIT/ML VIAL SQ SCH (06:00)
[2018-12-03 06:09] LABS: Basophils % 0.1 %; Hematocrit 35.4 % (37.5-50.1); Hemoglobin 11.2 g/dL (12.9-16.9); Immature Granulocytes % 0.5 % (0-4); Lymphocytes # 0.9 K/mcL (0.6-4.6); Lymphocytes % 11.1 %; Mean Corpuscular HGB Conc 31.6 g/dL (31.6-35.5); Mean Corpuscular Hemoglobin 31.3 pg (28.0-33.3); Mean Corpuscular Volume 98.9 fL (83.0-100.0); Mean Platelet Volume 8.8 fL (9.4-12.4); Monocytes # 0.1 K/mcL (0.0-1.3); Monocytes % 1.1 %; Neutrophils # 7.3 K/mcL (1.6-8.9); Platelet Count 293 K/mcL (140-400); Red Blood Count 3.58 M/mcL (4.19-5.50); Red Cell Distribution Width 16.2 % (11.5-14.5); Segmented Neutrophils % 87.2 %; White Blood Count 8.4 K/mcL (4.3-11.1)
[2018-12-03 06:22] LABS: Prothrombin Time 11.1 Seconds (9.4-12.1)
[2018-12-03 06:28] LABS: BUN/Creatinine Ratio 16 (6-26); Blood Urea Nitrogen 15 mg/dL (8-23); Calcium 8.8 mg/dL (8.6-10.3); Carbon Dioxide 22 mEq/L (23-29); Chloride 101 mEq/L (98-107); Glucose 439 mg/dL (70-105); Osmolality,Calculated 306 (280-300); Sodium 138 mEq/L (136-145); eGFR For African Americans > 60 (> 60); eGFR For Non-African Americans > 60 (> 60)
[2018-12-03] MEDS ORDERED: *HR* Heparin 5,000 UNIT/ML VIAL IVP PRN ×2 (07:46)
[2018-12-03] MEDS ORDERED: *HR* Heparin 5,000 UNIT/ML VIAL IVP ONE (07:46)
[2018-12-03] MEDS ORDERED: Heparin 25,000 UNIT/250 ML D5W 25,000 UNIT/250 ML IV.SOLN IVC SCH (08:00)
[2018-12-03] MEDS ORDERED: Perflutren Lipid Microsphere 1.3 ML in 0.9 % Sodium Chloride 8.7 ML IVP ONE (08:13)
[2018-12-03 09:19] LABS: Heparin anti-factor XA UFH 0.04 IU/mL (0.30-0.70)
[2018-12-03 09:20] LABS: INR 0.9; Prothrombin Time 10.3 Seconds (9.4-12.1)
[2018-12-03 10:53] LABS: Acinetobacter baumannii by PCR Not Detected (Not Detect); Candida albicans by PCR Not Detected (Not Detect); Candida glabrata by PCR Not Detected (Not Detect); Candida krusei by PCR Not Detected (Not Detect); Candida parapsilosis by PCR Not Detected (Not Detect); Candida tropicalis by PCR Not Detected (Not Detect); Enterobacter cloacae Cmplx PCR Not Detected (Not Detect); Enterobacteriaceae by PCR Not Detected (Not Detect); Enterococcus by PCR Not Detected (Not Detect); Escherichia coli by PCR Not Detected (Not Detect); Klebsiella oxytoca by PCR Not Detected (Not Detect); Klebsiella pneumoniae by PCR Not Detected (Not Detect); Proteus by PCR Not Detected (Not Detect); Pseudomonas aeruginosa by PCR Not Detected (Not Detect); Serratia marcescens by PCR Not Detected (Not Detect); Staphylococcus aureus by PCR Not Detected (Not Detect); Staphylococcus by PCR DETECTED (Not Detect); Streptococcus agalactiae(B)PCR Not Detected (Not Detect); Streptococcus by PCR Not Detected (Not Detect); Streptococcus pneumoniae PCR Not Detected (Not Detect); Streptococcus pyogenes (A) PCR Not Detected (Not Detect); mecA Methicillin-Resist Gene DETECTED (Not Detect)
[2018-12-03] MEDS ORDERED: *HR* Etomidate 20 MG/10 ML AMPUL IVP ONE (12:28)
[2018-12-03] MEDS ORDERED: Lidocaine 2% Syringe 100 MG/5 ML IV ONE (12:28)
[2018-12-03] MEDS ORDERED: *HR* Rocuronium Bromide 100 MG/10 ML VIAL IVC ONE (12:28)
[2018-12-03] MEDS ORDERED: *HR* Midazolam HCl 5 MG/5 ML VIAL IVP ONE (12:28)
[2018-12-03 12:36] VITALS: BP 130/76
== END 2018-12-03 12:29 | disposition home or self-care (01) | DRG 70 ==
LOC: ICNU 16:44 → EMEROOARM 16:44 → OBSVTOIN 22:57 → ICNU 23:26
PROVIDERS: ADMIT Internal Medicine; ATTEND Internal Medicine

== ENCOUNTER 2019-10-26 13:54 | Observation (INO) ==
[2019-10-26] MEDS ORDERED: Isovue-370 500 ML BOTTLE IVP ONE (14:01)
[2019-10-26] MEDS ORDERED: *HR* FentaNYL (PF) 100 MCG/2 ML VIAL IVP ONE ×3 (14:01→15:00)
[2019-10-26] MEDS: Nitroglycerin 0.4 MG TAB.SUBL SL PRN ×2 (14:11→14:16)
[2019-10-26 14:27] LABS: Basophils # 0.1 K/mcL (0.0-0.2); Basophils % 0.5 %; Eosinophils # 0.2 K/mcL (0.0-0.6); Eosinophils % 1.5 %; Hematocrit 40.6 % (37.5-50.1); Hemoglobin 13.5 g/dL (12.9-16.9); Immature Granulocytes % 0.2 % (0-4); Lymphocytes # 2.9 K/mcL (0.6-4.6); Lymphocytes % 23.2 %; Mean Corpuscular HGB Conc 33.3 g/dL (31.6-35.5); Mean Corpuscular Hemoglobin 31.5 pg (28.0-33.3); Mean Corpuscular Volume 94.6 fL (83.0-100.0); Mean Platelet Volume 9.5 fL (9.4-12.4); Monocytes # 0.6 K/mcL (0.0-1.3); Monocytes % 4.9 %; Neutrophils # 8.8 K/mcL (1.6-8.9); Platelet Count 273 K/mcL (140-400); Red Blood Count 4.29 M/mcL (4.19-5.50); Red Cell Distribution Width 13.3 % (11.5-14.5); Segmented Neutrophils % 69.7 %; White Blood Count 12.7 K/mcL (4.3-11.1)
[2019-10-26 14:44] LABS: BUN/Creatinine Ratio 11 (6-26); Blood Urea Nitrogen 9 mg/dL (8-23); Calcium 9.4 mg/dL (8.6-10.3); Carbon Dioxide 23 mEq/L (23-29); Chloride 98 mEq/L (98-107); Glucose 427 mg/dL (70-105); Osmolality,Calculated 291 (280-300); Potassium 4.8 mEq/L (3.5-5.1); Sodium 132 mEq/L (136-145); Troponin I < 0.03 ng/mL (< 0.04); eGFR For African Americans > 60 (> 60); eGFR For Non-African Americans > 60 (> 60)
[2019-10-26] MEDS ORDERED: 0.9 % Sodium Chloride 1,000 ML IVC ONE ×2 (14:48→14:54)
[2019-10-26] MEDS ORDERED: cefTRIAXone 1,000 MG in Water for inj. (sterile) 10 ML IVP ONE (14:49)
[2019-10-26] MEDS ORDERED: Azithromycin 500 MG in 0.9 % Sodium Chloride 250 ML IVPB ONE (14:49)
[2019-10-26 14:54] LABS: VBG HCO3 23 mEq/L (21-27); VBG PCO2 32 mmHg (41-51); VBG PH 7.46 pH Units (7.32-7.42); VBG PO2 227 mmHg (25-50)
[2019-10-26] MEDS ORDERED: Insulin Human Regular 10 UNIT in 0.9 % Sodium Chloride 10 ML IV ONE (15:02)
[2019-10-26] MEDS ORDERED: Naloxone 0.4 MG/ML INJ IVP PRN (17:43)
[2019-10-26] MEDS ORDERED: Acetaminophen 325 MG TABLET PO PRN (17:43)
[2019-10-26] MEDS ORDERED: Ondansetron 4 MG/2 ML VIAL IVP PRN (17:43)
[2019-10-26] MEDS ORDERED: *HR* Dextrose 50 % in Water (Vial) 50 ML VIAL IVP PRN ×2 (17:49→17:52)
[2019-10-26] MEDS ORDERED: D5% in Water 1,000 ML IVC PRN ×2 (17:49→17:52)
[2019-10-26] MEDS ORDERED: Dextrose Gel 15 GM/37.5 ML TUBE PO PRN ×4 (17:49→17:52)
[2019-10-26] MEDS ORDERED: Perflutren Lipid Microsphere 1.3 ML in 0.9 % Sodium Chloride 8.7 ML IVP PRN (17:54)
[2019-10-26] MEDS ORDERED: Morphine Sulfate 2 MG/ML SYRINGE IVP PRN (17:56)
[2019-10-26] MEDS ORDERED: 0.9 % Sodium Chloride 1,000 ML IVC SCH (18:00)
[2019-10-26] MEDS ORDERED: levoFLOXacin 750 MG/150 ML 750 MG/150 ML BAG IVPB SCH (18:27)
[2019-10-26] MEDS ORDERED: Ipratropium/Albuterol Neb 3 ML IH PRN (18:33)
[2019-10-26] MEDS ORDERED: Gabapentin 400 MG CAPSULE PO SCH (21:00)
[2019-10-26] MEDS ORDERED: Insulin LISPRO 300 UNITS/3 ML VIAL SQ SCH (21:00)
[2019-10-27 00:18] LABS: Amphetamine Screen,Urine Negative ng/mL (Cutoff=1000); Barbiturate Screen,Urine Negative ng/mL (Cutoff=200); Benzodiazepines Screen,Urine Positive ng/mL (Cutoff=200); Cannabinoid Screen,Urine Negative ng/mL (Cutoff = 50); Cocaine Screen,Urine Negative ng/mL (Cutoff= 300); Opiate Screen,Urine Negative ng/mL (Cutoff=300); Phencyclidine Screen,Urine Negative ng/mL (Cutoff=25)
[2019-10-27 03:18] VITALS: BP 146/82
[2019-10-27 03:37] LABS: Basophils # 0.1 K/mcL (0.0-0.2); Basophils % 0.6 %; Eosinophils # 0.2 K/mcL (0.0-0.6); Eosinophils % 2.1 %; Hematocrit 37.3 % (37.5-50.1); Hemoglobin 12.3 g/dL (12.9-16.9); Immature Granulocytes % 0.3 % (0-4); Lymphocytes # 2.4 K/mcL (0.6-4.6); Lymphocytes % 26.9 %; Mean Corpuscular Hemoglobin 31.7 pg (28.0-33.3); Mean Corpuscular Volume 96.1 fL (83.0-100.0); Mean Platelet Volume 9.5 fL (9.4-12.4); Monocytes # 0.4 K/mcL (0.0-1.3); Monocytes % 4.5 %; Neutrophils # 5.7 K/mcL (1.6-8.9); Platelet Count 242 K/mcL (140-400); Red Blood Count 3.88 M/mcL (4.19-5.50); Red Cell Distribution Width 13.3 % (11.5-14.5); Segmented Neutrophils % 65.6 %; White Blood Count 8.7 K/mcL (4.3-11.1)
[2019-10-27 04:01] LABS: BUN/Creatinine Ratio 12 (6-26); Blood Urea Nitrogen 7 mg/dL (8-23); Calcium 8.3 mg/dL (8.6-10.3); Carbon Dioxide 26 mEq/L (23-29); Chloride 106 mEq/L (98-107); Glucose 220 mg/dL (70-105); Magnesium 1.7 mg/dL (1.6-2.6); Osmolality,Calculated 291 (280-300); Potassium 4.1 mEq/L (3.5-5.1); Sodium 138 mEq/L (136-145); eGFR For African Americans > 60 (> 60); eGFR For Non-African Americans > 60 (> 60)
[2019-10-27] MEDS ORDERED: *HR* Enoxaparin 40 MG/0.4 ML SYRINGE SQ SCH (07:00)
[2019-10-27] MEDS ORDERED: Insulin LISPRO 300 UNITS/3 ML VIAL SQ SCH (07:30)
[2019-10-27] MEDS ORDERED: cefTRIAXone 1,000 MG in Water for inj. (sterile) 10 ML IVP SCH (09:00)
[2019-10-27] MEDS ORDERED: Aspirin Enteric Coated 81 MG Tablet PO SCH (09:00)
[2019-10-27] MEDS ORDERED: Azithromycin 500 MG in 0.9 % Sodium Chloride 250 ML IVPB SCH (15:00)
[2019-10-29 10:07] LABS: Serine Protease-3 Antibody 8 AU/mL (0-19)
== END 2019-10-27 05:01 | disposition left against medical advice (07) ==
LOC: 2NENU 13:54 → EMEROOARM 13:54 → SUATTDRO 17:04 → 2NENU 17:24
PROVIDERS: ADMIT Pharmacist; ATTEND Pharmacist

== ENCOUNTER 2019-12-26 18:38 | Observation (INO) ==
[2019-12-26] MEDS ORDERED: Aspirin 325 MG TABLET PO ONE (19:09)
[2019-12-26] MEDS ORDERED: Morphine Sulfate 2 MG/ML SYRINGE IVP ONE (19:09)
[2019-12-26 19:31] LABS: Basophils # 0.1 K/mcL (0.0-0.2); Basophils % 0.3 %; Eosinophils % 0.1 %; Hematocrit 42.5 % (37.5-50.1); Immature Granulocytes % 0.7 % (0-4); Lymphocytes # 1.1 K/mcL (0.6-4.6); Lymphocytes % 7.1 %; Mean Corpuscular HGB Conc 35.3 g/dL (31.6-35.5); Mean Corpuscular Hemoglobin 32.3 pg (28.0-33.3); Mean Corpuscular Volume 91.6 fL (83.0-100.0); Mean Platelet Volume 10.4 fL (9.4-12.4); Monocytes # 0.8 K/mcL (0.0-1.3); Monocytes % 5.6 %; Neutrophils # 12.8 K/mcL (1.6-8.9); Platelet Count 303 K/mcL (140-400); Red Blood Count 4.64 M/mcL (4.19-5.50); Red Cell Distribution Width 13.2 % (11.5-14.5); Segmented Neutrophils % 86.2 %; White Blood Count 14.9 K/mcL (4.3-11.1)
[2019-12-26 19:57] LABS: Alanine Aminotransferase 15 Units/L (7-52); Albumin 3.9 g/dL (3.5-5.7); Albumin/Globulin Ratio 1.3 (1.1-2.2); Alkaline Phosphatase 217 Units/L (34-104); Aspartate Amino Transferase 22 Units/L (13-39); BUN/Creatinine Ratio 15 (6-26); Bilirubin,Total 0.5 mg/dL (0.3-1.0); Blood Urea Nitrogen 21 mg/dL (8-23); Calcium 9.1 mg/dL (8.6-10.3); Carbon Dioxide 21 mEq/L (23-29); Chloride 79 mEq/L (98-107); Globulin 3.1 g/dL (2.4-3.5); Osmolality,Calculated 293 (280-300); Potassium 4.2 mEq/L (3.5-5.1); Sodium 119 mEq/L (136-145); Troponin I < 0.03 ng/mL (< 0.04); eGFR For African Americans > 60 (> 60); eGFR For Non-African Americans 52 (> 60)
[2019-12-26] MEDS: Nitroglycerin 0.4 MG TAB.SUBL SL PRN ×2 (19:57→20:05)
[2019-12-26 19:58] LABS: Glucose 849 mg/dL (70-105)
[2019-12-26 20:18] LABS: VBG HCO3 22 mEq/L (21-27); VBG PCO2 43 mmHg (41-51); VBG PH 7.32 pH Units (7.32-7.42); VBG PO2 35 mmHg (25-50)
[2019-12-26] MEDS ORDERED: Insulin Human Regular 5 UNIT in 0.9 % Sodium Chloride 10 ML IV ONE (20:20)
[2019-12-26] MEDS ORDERED: 0.9 % Sodium Chloride 1,000 ML IVC ONE (20:20)
[2019-12-26] MEDS ORDERED: Acetaminophen 325 MG TABLET PO PRN (20:41)
[2019-12-26] MEDS ORDERED: Ondansetron 4 MG/2 ML VIAL IVP PRN (20:41)
[2019-12-26] MEDS ORDERED: Naloxone 0.4 MG/ML INJ IVP PRN (20:41)
[2019-12-26] MEDS ORDERED: Ondansetron ODT 4 MG TAB.RAPDIS SL PRN (20:41)
[2019-12-26] MEDS ORDERED: D5% in 0.45% NACL w KCl 20 MEQ/1,000 ML MLS IVC PRN (20:43)
[2019-12-26] MEDS ORDERED: Insulin Regular, Human 100 UNIT/ML IV PRN (20:43)
[2019-12-26] MEDS ORDERED: *HR* Dextrose 50 % in Water (Vial) 50 ML VIAL IVP PRN (20:43)
[2019-12-26] MEDS ORDERED: Insulin Human Regular 100 UNIT in 0.9 % Sodium Chloride 100 ML IVC SCH (20:45)
[2019-12-26] MEDS ORDERED: *HR* OxyCODONE Immed Rel 5 MG TABLET PO PRN ×2 (20:59→23:59)
[2019-12-26] MEDS ORDERED: *HR* Heparin 5,000 UNIT/ML VIAL SQ SCH (22:00)
[2019-12-26] MEDS: 0.45 % Sodium Chloride w/KCl 20 MEQ/1,000 ML MLS IVC SCH ×2 (22:20→22:50)
[2019-12-26] MEDS: cefTRIAXone 2,000 MG in 0.9 % Sodium Chloride Mini Bag 100 ML IVP SCH (22:38)
[2019-12-26] MEDS: Azithromycin 500 MG in 0.9 % Sodium Chloride 250 ML IVPB SCH (23:18)
[2019-12-26 23:40] LABS: Magnesium 2.2 mg/dL (1.6-2.6); Phosphorous 3.8 mg/dL (2.7-4.5)
[2019-12-27] MEDS ORDERED: *HR* Heparin 5,000 UNIT/ML VIAL IVP ONE
[2019-12-27] MEDS ORDERED: *HR* OxyCODONE Immed Rel 5 MG TABLET PO PRN
[2019-12-27] MEDS ORDERED: *HR* Heparin 5,000 UNIT/ML VIAL IVP PRN ×2
[2019-12-27] MEDS: 0.45 % Sodium Chloride w/KCl 20 MEQ/1,000 ML MLS IVC SCH ×3 (00:10→06:20)
[2019-12-27] MEDS: Heparin 25,000UNIT/250ML 1/2NS 25,000 UNIT/250 ML IV.SOLN IVC SCH (00:43)
[2019-12-27 00:44] LABS: Hematocrit 41.2 % (37.5-50.1); Hemoglobin 14.6 g/dL (12.9-16.9); Mean Corpuscular HGB Conc 35.4 g/dL (31.6-35.5); Mean Corpuscular Hemoglobin 31.3 pg (28.0-33.3); Mean Corpuscular Volume 88.4 fL (83.0-100.0); Platelet Count 350 K/mcL (140-400); Red Blood Count 4.66 M/mcL (4.19-5.50); Red Cell Distribution Width 12.9 % (11.5-14.5); White Blood Count 13.9 K/mcL (4.3-11.1)
[2019-12-27 00:52] LABS: Heparin anti-factor XA UFH 0.07 IU/mL (0.30-0.70)
[2019-12-27 00:53] LABS: INR 0.9; Prothrombin Time 10.6 Seconds (9.4-12.1)
[2019-12-27] MEDS ORDERED: *HR* HYDROmorphone (PF) 1 MG/ML SYRINGE IVP ONE (00:53)
[2019-12-27 01:01] LABS: BUN/Creatinine Ratio 17 (6-26); Blood Urea Nitrogen 19 mg/dL (8-23); Calcium 9.1 mg/dL (8.6-10.3); Carbon Dioxide 21 mEq/L (23-29); Chloride 91 mEq/L (98-107); Glucose 313 mg/dL (70-105); Osmolality,Calculated 278 (280-300); Potassium 3.3 mEq/L (3.5-5.1); Sodium 127 mEq/L (136-145); eGFR For African Americans > 60 (> 60); eGFR For Non-African Americans > 60 (> 60)
[2019-12-27 03:30] LABS: BUN/Creatinine Ratio 20 (6-26); Blood Urea Nitrogen 18 mg/dL (8-23); Calcium 8.2 mg/dL (8.6-10.3); Carbon Dioxide 24 mEq/L (23-29); Chloride 94 mEq/L (98-107); Glucose 181 mg/dL (70-105); Osmolality,Calculated 270 (280-300); Potassium 3.4 mEq/L (3.5-5.1); Sodium 127 mEq/L (136-145); eGFR For African Americans > 60 (> 60); eGFR For Non-African Americans > 60 (> 60)
[2019-12-27 03:31] LABS: Troponin I < 0.03 ng/mL (< 0.04)
[2019-12-27] MEDS: Ipratropium/Albuterol Neb 3 ML IH SCH ×4 (03:37→22:35)
[2019-12-27 05:02] LABS: Bilirubin,Urine Negative (Negative); Blood,Urine Moderate (Negative); Budding Yeast,Urine Many per hpf (None Seen); Clarity,Urine Clear (Clear); Color,Urine Light-Yellow (Yellow); Glucose,Urine (UA) >=1000 mg/dL (Normal); Ketones,Urine 10 mg/dL (Negative); Leukocyte Esterase,Urine Moderate (Negative); Mucus,Urine Few per lpf (None-Few); Nitrite,Urine Negative (Negative); Protein,Urine 100 mg/dL (Neg-Trace); Specific Gravity,Urine 1.025 (1.010-1.025); Squamous Epithelial Cell,Urine Few per hpf (None-Few); Urobilinogen,Urine Normal (Normal); WBC,Urine 15-30 per hpf (0-3)
[2019-12-27 05:12] LABS: Amphetamine Screen,Urine Negative ng/mL (Cutoff=1000); Barbiturate Screen,Urine Negative ng/mL (Cutoff=200); Benzodiazepines Screen,Urine Positive ng/mL (Cutoff=200); Cannabinoid Screen,Urine Negative ng/mL (Cutoff = 50); Cocaine Screen,Urine Negative ng/mL (Cutoff= 300); Opiate Screen,Urine Positive ng/mL (Cutoff=300); Phencyclidine Screen,Urine Negative ng/mL (Cutoff=25)
[2019-12-27] MEDS ORDERED: Insulin DETEMIR 100 UNIT/ML X5UNITS SQ SCH (05:16)
[2019-12-27] MEDS: Insulin LISPRO 300 UNITS/3 ML VIAL SQ SCH ×3 (07:37→17:37)
[2019-12-27] MEDS: Aspirin Enteric Coated 81 MG Tablet PO SCH (07:39)
[2019-12-27] MEDS: Gabapentin 400 MG CAPSULE PO SCH ×3 (07:39→20:20)
[2019-12-27] MEDS ORDERED: Perflutren Lipid Microsphere 1.3 ML in 0.9 % Sodium Chloride 8.7 ML IVP PRN (11:30)
[2019-12-27 13:46] LABS: BUN/Creatinine Ratio 22 (6-26); Blood Urea Nitrogen 15 mg/dL (8-23); Calcium 8.2 mg/dL (8.6-10.3); Carbon Dioxide 22 mEq/L (23-29); Chloride 97 mEq/L (98-107); Glucose 114 mg/dL (70-105); Osmolality,Calculated 266 (280-300); Potassium 3.5 mEq/L (3.5-5.1); Sodium 127 mEq/L (136-145); eGFR For African Americans > 60 (> 60); eGFR For Non-African Americans > 60 (> 60)
[2019-12-27] MEDS: cefTRIAXone 2,000 MG in 0.9 % Sodium Chloride Mini Bag 100 ML IVP SCH (20:20)
[2019-12-27] MEDS: Azithromycin 500 MG in 0.9 % Sodium Chloride 250 ML IVPB SCH (20:21)
[2019-12-27] MEDS: Insulin DETEMIR 100 UNIT/ML X5UNITS SQ SCH (20:53)
[2019-12-27] MEDS ORDERED: Insulin LISPRO 300 UNITS/3 ML VIAL SQ SCH (21:00)
[2019-12-28] MEDS: Heparin 25,000UNIT/250ML 1/2NS 25,000 UNIT/250 ML IV.SOLN IVC SCH (00:31)
[2019-12-28] MEDS ORDERED: Ringers Solution, Lactated 1,000 ML IVC SCH (00:45)
[2019-12-28 01:37] LABS: Basophils # 0.1 K/mcL (0.0-0.2); Basophils % 0.5 %; Eosinophils % 0.2 %; Hematocrit 36.1 % (37.5-50.1); Immature Granulocytes % 1.2 % (0-4); Lymphocytes # 3.3 K/mcL (0.6-4.6); Lymphocytes % 29.3 %; Mean Corpuscular HGB Conc 33.5 g/dL (31.6-35.5); Mean Corpuscular Hemoglobin 31.4 pg (28.0-33.3); Mean Corpuscular Volume 93.8 fL (83.0-100.0); Mean Platelet Volume 10.3 fL (9.4-12.4); Monocytes # 0.7 K/mcL (0.0-1.3); Monocytes % 6.3 %; Neutrophils # 7.1 K/mcL (1.6-8.9); Platelet Count 240 K/mcL (140-400); Red Blood Count 3.85 M/mcL (4.19-5.50); Red Cell Distribution Width 13.5 % (11.5-14.5); Segmented Neutrophils % 62.5 %; White Blood Count 11.3 K/mcL (4.3-11.1)
[2019-12-28 01:41] LABS: Hemoglobin 12.1 g/dL (12.9-16.9)
[2019-12-28 01:56] LABS: BUN/Creatinine Ratio 18 (6-26); Blood Urea Nitrogen 14 mg/dL (8-23); Calcium 7.8 mg/dL (8.6-10.3); Carbon Dioxide 20 mEq/L (23-29); Chloride 97 mEq/L (98-107); Glucose 269 mg/dL (70-105); Magnesium 1.7 mg/dL (1.6-2.6); Osmolality,Calculated 276 (280-300); Phosphorous 1.8 mg/dL (2.7-4.5); Potassium 3.6 mEq/L (3.5-5.1); Sodium 128 mEq/L (136-145); eGFR For African Americans > 60 (> 60); eGFR For Non-African Americans > 60 (> 60)
[2019-12-28] MEDS: Ipratropium/Albuterol Neb 3 ML IH SCH ×2 (03:48→10:53)
[2019-12-28] MEDS: Gabapentin 300 MG CAPSULE PO SCH ×2 (05:09→09:02)
[2019-12-28] MEDS: Insulin LISPRO 300 UNITS/3 ML VIAL SQ SCH ×2 (08:58→11:10)
[2019-12-28] MEDS: Aspirin Enteric Coated 81 MG Tablet PO SCH (08:59)
[2019-12-28] MEDS: Insulin DETEMIR 100 UNIT/ML X5UNITS SQ SCH (09:02)
[2019-12-28] MEDS ORDERED: Potassium Phosphate 44 MEQ in 0.9 % Sodium Chloride 250 ML IVPB ONE (09:47)
[2019-12-28] MEDS ORDERED: *HR* HYDROmorphone 2 MG TABLET PO PRN (09:53)
[2019-12-28 11:10] VITALS: BP 111/68
== END 2019-12-28 14:19 | disposition home or self-care (01) ==
LOC: 2NNU 18:38 → EMEROOARM 18:38 → SUATTDRO 21:12 → 2NNU 22:06
PROVIDERS: ADMIT Internal Medicine; ATTEND Student in an Organized Health Care Education/Training Program

== ENCOUNTER 2020-02-14 03:43 | Observation (INO) ==
[2020-02-14] MEDS ORDERED: 0.9 % Sodium Chloride 1,000 ML IVC ONE (03:49)
[2020-02-14 04:26] LABS: Basophils # 0.1 K/mcL (0.0-0.2); Basophils % 0.8 %; Eosinophils # 0.1 K/mcL (0.0-0.6); Eosinophils % 0.3 %; Hematocrit 44.7 % (37.5-50.1); Hemoglobin 15.3 g/dL (12.9-16.9); Immature Granulocytes % 2.5 % (0-4); Lymphocytes # 3.7 K/mcL (0.6-4.6); Lymphocytes % 22.8 %; Mean Corpuscular HGB Conc 34.2 g/dL (31.6-35.5); Mean Corpuscular Hemoglobin 31.9 pg (28.0-33.3); Mean Corpuscular Volume 93.3 fL (83.0-100.0); Mean Platelet Volume 9.8 fL (9.4-12.4); Monocytes # 0.8 K/mcL (0.0-1.3); Neutrophils # 11.2 K/mcL (1.6-8.9); Platelet Count 523 K/mcL (140-400); Red Blood Count 4.79 M/mcL (4.19-5.50); Red Cell Distribution Width 13.2 % (11.5-14.5); Segmented Neutrophils % 68.6 %; White Blood Count 16.3 K/mcL (4.3-11.1)
[2020-02-14 04:35] LABS: Prothrombin Time 12.1 Seconds (9.4-12.1)
[2020-02-14 04:43] LABS: VBG HCO3 16 mEq/L (21-27); VBG PCO2 31 mmHg (41-51); VBG PH 7.31 pH Units (7.32-7.42); VBG PO2 35 mmHg (25-50)
[2020-02-14 05:06] LABS: Troponin I < 0.03 ng/mL (< 0.04)
[2020-02-14 05:11] LABS: Bilirubin,Urine Negative (Negative); Blood,Urine Small (Negative); Budding Yeast,Urine Few per hpf (None Seen); Clarity,Urine Clear (Clear); Color,Urine Colorless (Yellow); Glucose,Urine (UA) >=1000 mg/dL (Normal); Ketones,Urine >150 mg/dL (Negative); Leukocyte Esterase,Urine Small (Negative); Nitrite,Urine Negative (Negative); PH,Urine 5.5 pH Units (5.0-8.0); Protein,Urine 50 mg/dL (Neg-Trace); Specific Gravity,Urine 1.025 (1.010-1.025); Urobilinogen,Urine Normal (Normal); WBC,Urine 30-50 per hpf (0-3)
[2020-02-14] MEDS ORDERED: 0.9 % Sodium Chloride 1,000 ML IVC STA (05:16)
[2020-02-14 05:18] LABS: Alanine Aminotransferase 8 Units/L (7-52); Albumin 3.9 g/dL (3.5-5.7); Albumin/Globulin Ratio 1.4 (1.1-2.2); Alkaline Phosphatase 184 Units/L (34-104); Aspartate Amino Transferase 8 Units/L (13-39); BUN/Creatinine Ratio 13 (6-26); Bilirubin,Direct 0.1 mg/dL (0.0-0.2); Bilirubin,Indirect 0.4 mg/dL (0.0-1.0); Bilirubin,Total 0.5 mg/dL (0.3-1.0); Blood Urea Nitrogen 16 mg/dL (8-23); Calcium 9.4 mg/dL (8.6-10.3); Carbon Dioxide 14 mEq/L (23-29); Chloride 82 mEq/L (98-107); Creatine Kinase 27 Units/L (30-223); Globulin 2.8 g/dL (2.4-3.5); Glucose 574 mg/dL (70-105); Lipase 25 Units/L (11-82); Magnesium 2.1 mg/dL (1.6-2.6); Osmolality,Calculated 286 (280-300); Potassium 4.4 mEq/L (3.5-5.1); Sodium 124 mEq/L (136-145); Total Protein 6.7 g/dL (6.4-8.9); eGFR For African Americans > 60 (> 60); eGFR For Non-African Americans 60 (> 60)
[2020-02-14 05:23] LABS: Adenovirus Not Detected (Not Detect); Coronavirus 229E Not Detected (Not Detect); Coronavirus HKU1 Not Detected (Not Detect); Coronavirus NL63 Not Detected (Not Detect); Coronavirus OC43 Not Detected (Not Detect)
[2020-02-14 05:24] LABS: Bordetella Pertussis Not Detected (Not Detect); Chlamydophila pneumoniae Not Detected (Not Detect); Human Metapneumovirus Not Detected (Not Detect); Human Rhinovirus/Enterovirus Not Detected (Not Detect); Influenza A Subtype 2009 H1 Not Detected (Not Detect); Influenza B Not Detected (Not Detect); Mycoplasma pneumoniae Not Detected (Not Detect); Parainfluenza Virus 1 Not Detected (Not Detect); Parainfluenza Virus 2 Not Detected (Not Detect); Parainfluenza Virus 3 Not Detected (Not Detect); Parainfluenza Virus 4 Not Detected (Not Detect); Respiratory Syncytial Virus Not Detected (Not Detect); SARS-CoV-2 Not Detected (Not Detect)
[2020-02-14] MEDS ORDERED: levoFLOXacin 750 MG/150 ML 750 MG/150 ML BAG IVPB ONE (05:26)
[2020-02-14] MEDS ORDERED: Insulin Human Regular 100 UNIT in 0.9 % Sodium Chloride 100 ML IVC SCH ×3 (05:30→17:45)
[2020-02-14] MEDS ORDERED: Ondansetron ODT 4 MG TAB.RAPDIS SL PRN (05:50)
[2020-02-14] MEDS ORDERED: Naloxone 0.4 MG/ML INJ IVP PRN (05:50)
[2020-02-14] MEDS ORDERED: Acetaminophen 325 MG TABLET PO PRN (05:50)
[2020-02-14 06:14] LABS: Amphetamine Screen,Urine Negative ng/mL (Cutoff=1000); Barbiturate Screen,Urine Negative ng/mL (Cutoff=200); Benzodiazepines Screen,Urine Negative ng/mL (Cutoff=200); Cannabinoid Screen,Urine Negative ng/mL (Cutoff = 50); Cocaine Screen,Urine Negative ng/mL (Cutoff= 300); Opiate Screen,Urine Negative ng/mL (Cutoff=300); Phencyclidine Screen,Urine Negative ng/mL (Cutoff=25)
[2020-02-14 06:24] LABS: Ethanol < 10 mg/dL (Less than 10)
[2020-02-14] MEDS ORDERED: D5% in 0.45% NACL w KCl 20 MEQ/1,000 ML MLS IVC PRN (08:26)
[2020-02-14] MEDS ORDERED: Insulin Regular, Human 100 UNIT/ML IV PRN (08:26)
[2020-02-14] MEDS ORDERED: *HR* Dextrose 50 % in Water (Vial) 50 ML VIAL IVP PRN (08:26)
[2020-02-14] MEDS: 0.9 % Sodium Chloride w KCl 20 MEQ/1,000 ML MLS IVC SCH ×2 (09:06→19:13)
[2020-02-14 10:03] LABS: Estimated Average Glucose 484 mg/dl; Hemoglobin A1C 18.5 %
[2020-02-14 10:32] LABS: BUN/Creatinine Ratio 16 (6-26); Blood Urea Nitrogen 15 mg/dL (8-23); Calcium 8.3 mg/dL (8.6-10.3); Carbon Dioxide 14 mEq/L (23-29); Chloride 95 mEq/L (98-107); Glucose 404 mg/dL (70-105); Osmolality,Calculated 284 (280-300); Potassium 3.7 mEq/L (3.5-5.1); Sodium 128 mEq/L (136-145); eGFR For African Americans > 60 (> 60); eGFR For Non-African Americans > 60 (> 60)
[2020-02-14 10:44] LABS: ABG Base Excess -5 mEq/L (-2 to 3); ABG HCO3 19 mEq/L (21-27); ABG Oxygen Saturation 97 % (95-98); ABG PCO2 30 mmHg (35-45); ABG PH 7.41 pH Units (7.32-7.45); ABG PO2 84 mmHg (85-104); ABG TCO2 20 mEq/L (20-26)
[2020-02-14] MEDS: D5% in 0.45% NACL w KCl 20 MEQ/1,000 ML MLS IVC SCH ×3 (11:36→20:22)
[2020-02-14 14:45] LABS: BUN/Creatinine Ratio 16 (6-26); Blood Urea Nitrogen 13 mg/dL (8-23); Calcium 8.4 mg/dL (8.6-10.3); Carbon Dioxide 18 mEq/L (23-29); Chloride 101 mEq/L (98-107); Glucose 143 mg/dL (70-105); Osmolality,Calculated 277 (280-300); Potassium 3.7 mEq/L (3.5-5.1); Sodium 132 mEq/L (136-145); eGFR For African Americans > 60 (> 60); eGFR For Non-African Americans > 60 (> 60)
[2020-02-14 23:17] LABS: BUN/Creatinine Ratio 16 (6-26); Blood Urea Nitrogen 11 mg/dL (8-23); Calcium 7.9 mg/dL (8.6-10.3); Carbon Dioxide 20 mEq/L (23-29); Chloride 106 mEq/L (98-107); Glucose 136 mg/dL (70-105); Osmolality,Calculated 277 (280-300); Potassium 3.7 mEq/L (3.5-5.1); Sodium 133 mEq/L (136-145); eGFR For African Americans > 60 (> 60); eGFR For Non-African Americans > 60 (> 60)
[2020-02-15] MEDS ORDERED: Insulin DETEMIR 100 UNIT/ML X5UNITS SUBQ SCH (01:45)
[2020-02-15] MEDS: D5% in 0.45% NACL w KCl 20 MEQ/1,000 ML MLS IVC SCH ×2 (02:32→07:45)
[2020-02-15 04:14] LABS: BUN/Creatinine Ratio 12 (6-26); Blood Urea Nitrogen 10 mg/dL (8-23); Calcium 7.8 mg/dL (8.6-10.3); Carbon Dioxide 17 mEq/L (23-29); Chloride 105 mEq/L (98-107); Glucose 129 mg/dL (70-105); Magnesium 1.9 mg/dL (1.6-2.6); Osmolality,Calculated 271 (280-300); Phosphorous 1.8 mg/dL (2.7-4.5); Sodium 130 mEq/L (136-145); eGFR For African Americans > 60 (> 60); eGFR For Non-African Americans > 60 (> 60)
[2020-02-15 05:59] LABS: Basophils # 0.1 K/mcL (0.0-0.2); Basophils % 0.4 %; Eosinophils # 0.1 K/mcL (0.0-0.6); Eosinophils % 0.7 %; Hematocrit 36.8 % (37.5-50.1); Hemoglobin 12.4 g/dL (12.9-16.9); Immature Granulocytes % 1.4 % (0-4); Lymphocytes # 3.3 K/mcL (0.6-4.6); Lymphocytes % 20.5 %; Mean Corpuscular HGB Conc 33.7 g/dL (31.6-35.5); Mean Corpuscular Volume 95.1 fL (83.0-100.0); Mean Platelet Volume 9.7 fL (9.4-12.4); Monocytes # 0.9 K/mcL (0.0-1.3); Monocytes % 5.7 %; Neutrophils # 11.5 K/mcL (1.6-8.9); Platelet Count 343 K/mcL (140-400); Red Blood Count 3.87 M/mcL (4.19-5.50); Red Cell Distribution Width 13.5 % (11.5-14.5); Segmented Neutrophils % 71.3 %; White Blood Count 16.1 K/mcL (4.3-11.1)
[2020-02-15] MEDS: Insulin LISPRO 300 UNITS/3 ML VIAL SUBQ SCH ×5 (07:33→17:26)
[2020-02-15] MEDS ORDERED: levoFLOXacin 500 MG/100 ML 500 MG/100 ML BAG IVPB SCH (08:00)
[2020-02-15] MEDS ORDERED: Insulin LISPRO 300 UNITS/3 ML VIAL SUBQ SCH (08:00)
[2020-02-15] MEDS: Calcium Gluconate 1gm/50mL 1 GM/50 ML BAG IVPB SCH ×2 (09:23→10:21)
[2020-02-15 12:13] LABS: Hematocrit 37.8 % (37.5-50.1); Hemoglobin 12.8 g/dL (12.9-16.9)
[2020-02-15] MEDS ORDERED: Dextrose Gel 15 GM/37.5 ML TUBE PO PRN ×2 (14:53)
[2020-02-15] MEDS ORDERED: *HR* Dextrose 50 % in Water (Vial) 50 ML VIAL IVP PRN (14:53)
[2020-02-15] MEDS ORDERED: D5% in Water 1,000 ML IVC PRN (14:53)
[2020-02-15] MEDS: Insulin DETEMIR 100 UNIT/ML X5UNITS SUBQ SCH (21:35)
[2020-02-16] MEDS: Nicotine 21 MG PATCH.TD24 TD SCH ×2 (00:20→20:46)
[2020-02-16 01:44] LABS: Basophils # 0.1 K/mcL (0.0-0.2); Basophils % 0.5 %; Red Blood Count 4.06 M/mcL (4.19-5.50); Red Cell Distribution Width 13.6 % (11.5-14.5)
[2020-02-16 01:46] LABS: Eosinophils # 0.1 K/mcL (0.0-0.6); Eosinophils % 0.7 %; Hematocrit 37.7 % (37.5-50.1); Hemoglobin 12.8 g/dL (12.9-16.9); Immature Granulocytes % 1.4 % (0-4); Lymphocytes # 2.6 K/mcL (0.6-4.6); Lymphocytes % 20.1 %; Mean Corpuscular Hemoglobin 31.5 pg (28.0-33.3); Mean Corpuscular Volume 92.9 fL (83.0-100.0); Mean Platelet Volume 9.4 fL (9.4-12.4); Monocytes # 0.6 K/mcL (0.0-1.3); Monocytes % 4.3 %; Neutrophils # 9.5 K/mcL (1.6-8.9); Platelet Count 351 K/mcL (140-400)
[2020-02-16 01:59] LABS: BUN/Creatinine Ratio 12 (6-26); Blood Urea Nitrogen 7 mg/dL (8-23); Calcium 8.2 mg/dL (8.6-10.3); Carbon Dioxide 20 mEq/L (23-29); Chloride 105 mEq/L (98-107); Glucose 259 mg/dL (70-105); Magnesium 1.7 mg/dL (1.6-2.6); Osmolality,Calculated 283 (280-300); Phosphorous 2.3 mg/dL (2.7-4.5); Potassium 3.7 mEq/L (3.5-5.1); Sodium 133 mEq/L (136-145); eGFR For African Americans > 60 (> 60); eGFR For Non-African Americans > 60 (> 60)
[2020-02-16] MEDS: Insulin LISPRO 300 UNITS/3 ML VIAL SUBQ SCH ×6 (08:52→16:16)
[2020-02-16] MEDS: Calcium Gluconate 1gm/50mL 1 GM/50 ML BAG IVPB SCH ×2 (08:53→10:16)
[2020-02-16] MEDS: levoFLOXacin 750 MG TABLET PO SCH (09:02)
[2020-02-16] MEDS ORDERED: *HR* LORazepam 2 MG/ML VIAL IVP PRN (16:00)
[2020-02-16] MEDS: levETIRAcetam 250 MG TABLET PO SCH (16:13)
[2020-02-16] MEDS: Insulin DETEMIR 100 UNIT/ML X5UNITS SUBQ SCH (20:45)
[2020-02-16] MEDS ORDERED: *HR* HYDROmorphone 2 MG TABLET PO PRN (21:41)
[2020-02-16] MEDS: Gabapentin 400 MG CAPSULE PO SCH (21:59)
[2020-02-17 02:39] LABS: Basophils % 0.4 %; Eosinophils # 0.1 K/mcL (0.0-0.6); Eosinophils % 0.8 %; Hematocrit 39.4 % (37.5-50.1); Hemoglobin 12.8 g/dL (12.9-16.9); Immature Granulocytes % 0.8 % (0-4); Lymphocytes # 3.4 K/mcL (0.6-4.6); Lymphocytes % 32.9 %; Mean Corpuscular HGB Conc 32.5 g/dL (31.6-35.5); Mean Corpuscular Hemoglobin 30.9 pg (28.0-33.3); Mean Corpuscular Volume 95.2 fL (83.0-100.0); Mean Platelet Volume 9.9 fL (9.4-12.4); Monocytes # 0.5 K/mcL (0.0-1.3); Monocytes % 4.9 %; Neutrophils # 6.3 K/mcL (1.6-8.9); Platelet Count 294 K/mcL (140-400); Red Blood Count 4.14 M/mcL (4.19-5.50); Red Cell Distribution Width 13.6 % (11.5-14.5); Segmented Neutrophils % 60.2 %; White Blood Count 10.4 K/mcL (4.3-11.1)
[2020-02-17 02:49] LABS: Alanine Aminotransferase 5 Units/L (7-52); Albumin 3.1 g/dL (3.5-5.7); Albumin/Globulin Ratio 1.3 (1.1-2.2); Alkaline Phosphatase 102 Units/L (34-104); Aspartate Amino Transferase 10 Units/L (13-39); BUN/Creatinine Ratio 10 (6-26); Bilirubin,Total 0.3 mg/dL (0.3-1.0); Blood Urea Nitrogen 6 mg/dL (8-23); Calcium 8.7 mg/dL (8.6-10.3); Carbon Dioxide 23 mEq/L (23-29); Chloride 107 mEq/L (98-107); Globulin 2.4 g/dL (2.4-3.5); Glucose 97 mg/dL (70-105); Magnesium 1.7 mg/dL (1.6-2.6); Osmolality,Calculated 282 (280-300); Phosphorous 2.6 mg/dL (2.7-4.5); Potassium 3.4 mEq/L (3.5-5.1); Sodium 137 mEq/L (136-145); Total Protein 5.5 g/dL (6.4-8.9); eGFR For African Americans > 60 (> 60); eGFR For Non-African Americans > 60 (> 60)
[2020-02-17 02:53] LABS: % Iron Saturation 11 % (20-55); Iron 30 mcg/dL (65-175); Transferrin 187 mg/dL (203-362)
[2020-02-17 03:10] LABS: Ferritin 156 ng/mL (20-250)
[2020-02-17 03:15] LABS: Folate 18.3 ng/mL (3.0-16.0)
[2020-02-17] MEDS: levETIRAcetam 250 MG TABLET PO SCH (05:22)
[2020-02-17] MEDS ORDERED: *HR* Enoxaparin 40 MG/0.4 ML SYRINGE SQ SCH (06:00)
[2020-02-17] MEDS: Insulin LISPRO 300 UNITS/3 ML VIAL SUBQ SCH ×2 (07:39→11:53)
[2020-02-17] MEDS ORDERED: Iron Sucrose Complex 400 MG in 0.9 % Sodium Chloride 250 ML IVPB ONE (07:48)
[2020-02-17] MEDS: levoFLOXacin 750 MG TABLET PO SCH (08:59)
[2020-02-17] MEDS: Gabapentin 400 MG CAPSULE PO SCH ×2 (08:59→14:34)
[2020-02-17 10:59] VITALS: BP 97/62
== END 2020-02-17 16:21 | disposition home or self-care (01) ==
LOC: 2NNU 03:43 → EMEROOARM 03:43 → SUATTDRO 06:43 → 2NNU 07:58 → 2ANU 02-15 12:42
PROVIDERS: ADMIT Internal Medicine; ATTEND Internal Medicine

== ENCOUNTER 2020-02-20 17:39 | Observation (INO) ==
[2020-02-20] MEDS ORDERED: *HR* LORazepam 2 MG/ML VIAL ONE (17:49)
[2020-02-20] MEDS ORDERED: *HR* LORazepam 2 MG/ML VIAL IVP STA (17:52)
[2020-02-20 18:52] LABS: Basophils # 0.1 K/mcL (0.0-0.2); Basophils % 0.7 %; Eosinophils # 0.1 K/mcL (0.0-0.6); Eosinophils % 0.8 %; Hematocrit 39.4 % (37.5-50.1); Hemoglobin 12.9 g/dL (12.9-16.9); Immature Granulocytes % 2.2 % (0-4); Lymphocytes # 3.5 K/mcL (0.6-4.6); Lymphocytes % 29.8 %; Mean Corpuscular HGB Conc 32.7 g/dL (31.6-35.5); Mean Corpuscular Hemoglobin 32.7 pg (28.0-33.3); Mean Corpuscular Volume 99.7 fL (83.0-100.0); Mean Platelet Volume 9.9 fL (9.4-12.4); Monocytes # 0.5 K/mcL (0.0-1.3); Monocytes % 4.1 %; Platelet Count 319 K/mcL (140-400); Red Blood Count 3.95 M/mcL (4.19-5.50); Red Cell Distribution Width 13.5 % (11.5-14.5); Segmented Neutrophils % 62.4 %; White Blood Count 11.6 K/mcL (4.3-11.1)
[2020-02-20 18:56] LABS: Alanine Aminotransferase 7 Units/L (7-52); Albumin 3.8 g/dL (3.5-5.7); Albumin/Globulin Ratio 1.3 (1.1-2.2); Alkaline Phosphatase 119 Units/L (34-104); Aspartate Amino Transferase 15 Units/L (13-39); BUN/Creatinine Ratio 12 (6-26); Bilirubin,Indirect 0.3 mg/dL (0.0-1.0); Bilirubin,Total 0.3 mg/dL (0.3-1.0); Blood Urea Nitrogen 9 mg/dL (8-23); Carbon Dioxide 16 mEq/L (23-29); Chloride 95 mEq/L (98-107); Ethanol < 10 mg/dL (Less than 10); Globulin 2.9 g/dL (2.4-3.5); Glucose 368 mg/dL (70-105); Osmolality,Calculated 284 (280-300); Potassium 4.1 mEq/L (3.5-5.1); Sodium 130 mEq/L (136-145); Total Protein 6.7 g/dL (6.4-8.9); Troponin I < 0.03 ng/mL (< 0.04); eGFR For African Americans > 60 (> 60); eGFR For Non-African Americans > 60 (> 60)
[2020-02-20 19:11] LABS: Neutrophils # 7.2 K/mcL (1.6-8.9)
[2020-02-20 19:48] LABS: Prothrombin Time 11.2 Seconds (9.4-12.1)
[2020-02-20 19:51] LABS: Activated Partial Thrombo Time 26.2 Seconds (26.0-36.0)
[2020-02-20 20:48] LABS: Bilirubin,Urine Negative (Negative); Blood,Urine Small (Negative); Clarity,Urine Clear (Clear); Color,Urine Colorless (Yellow); Glucose,Urine (UA) >=1000 mg/dL (Normal); Ketones,Urine Negative (Negative); Leukocyte Esterase,Urine Moderate (Negative); Mucus,Urine Few per lpf (None-Few); Nitrite,Urine Negative (Negative); Protein,Urine 50 mg/dL (Neg-Trace); Specific Gravity,Urine 1.023 (1.010-1.025); Squamous Epithelial Cell,Urine Few per hpf (None-Few); Urobilinogen,Urine Normal (Normal); WBC,Urine 50-100 per hpf (0-3)
[2020-02-20 20:53] LABS: Amphetamine Screen,Urine Negative ng/mL (Cutoff=1000); Barbiturate Screen,Urine Negative ng/mL (Cutoff=200); Benzodiazepines Screen,Urine Negative ng/mL (Cutoff=200); Cannabinoid Screen,Urine Negative ng/mL (Cutoff = 50); Cocaine Screen,Urine Negative ng/mL (Cutoff= 300); Opiate Screen,Urine Negative ng/mL (Cutoff=300); Phencyclidine Screen,Urine Negative ng/mL (Cutoff=25)
[2020-02-20] MEDS ORDERED: 0.9 % Sodium Chloride 1,000 ML IVC ONE (22:06)
[2020-02-20 22:45] LABS: Adenovirus Not Detected (Not Detect); Bordetella Pertussis Not Detected (Not Detect); Chlamydophila pneumoniae Not Detected (Not Detect); Coronavirus 229E Not Detected (Not Detect); Coronavirus HKU1 Not Detected (Not Detect); Coronavirus NL63 Not Detected (Not Detect); Coronavirus OC43 Not Detected (Not Detect); Human Metapneumovirus Not Detected (Not Detect); Human Rhinovirus/Enterovirus Not Detected (Not Detect); Influenza A Subtype 2009 H1 Not Detected (Not Detect); Influenza B Not Detected (Not Detect); Mycoplasma pneumoniae Not Detected (Not Detect); Parainfluenza Virus 1 Not Detected (Not Detect); Parainfluenza Virus 2 Not Detected (Not Detect); Parainfluenza Virus 3 Not Detected (Not Detect); Parainfluenza Virus 4 Not Detected (Not Detect); Respiratory Syncytial Virus Not Detected (Not Detect); SARS-CoV-2 Not Detected (Not Detect)
[2020-02-20 22:52] LABS: VBG HCO3 24 mEq/L (21-27); VBG PCO2 33 mmHg (41-51); VBG PH 7.47 pH Units (7.32-7.42); VBG PO2 215 mmHg (25-50)
[2020-02-21] MEDS ORDERED: Naloxone 0.4 MG/ML INJ IVP PRN (00:04)
[2020-02-21] MEDS ORDERED: Insulin DETEMIR 100 UNIT/ML X5UNITS SUBQ SCH (00:15)
[2020-02-21] MEDS ORDERED: *HR* Dextrose 50 % in Water (Vial) 50 ML VIAL IVP PRN (00:16)
[2020-02-21] MEDS ORDERED: D5% in Water 1,000 ML IVC PRN (00:16)
[2020-02-21] MEDS ORDERED: Dextrose Gel 15 GM/37.5 ML TUBE PO PRN ×2 (00:16)
[2020-02-21] MEDS ORDERED: *HR* LORazepam 2 MG/ML VIAL IVP PRN (00:26)
[2020-02-21] MEDS: Insulin LISPRO 300 UNITS/3 ML VIAL SUBQ SCH ×4 (01:46→16:53)
[2020-02-21] MEDS: *HR* Heparin 5,000 UNIT/ML VIAL SQ SCH ×2 (05:42→17:00)
[2020-02-21] MEDS: levETIRAcetam 250 MG TABLET PO SCH ×2 (05:42→16:59)
[2020-02-21] MEDS: cefTRIAXone 1,000 MG in Water for inj. (sterile) 10 ML IVP SCH (05:42)
[2020-02-21 05:52] LABS: Basophils # 0.1 K/mcL (0.0-0.2); Basophils % 0.4 %; Eosinophils # 0.1 K/mcL (0.0-0.6); Eosinophils % 0.6 %; Hematocrit 37.2 % (37.5-50.1); Hemoglobin 12.8 g/dL (12.9-16.9); Immature Granulocytes % 0.5 % (0-4); Lymphocytes % 32.9 %; Mean Corpuscular HGB Conc 34.4 g/dL (31.6-35.5); Mean Corpuscular Hemoglobin 32.5 pg (28.0-33.3); Mean Corpuscular Volume 94.4 fL (83.0-100.0); Mean Platelet Volume 9.4 fL (9.4-12.4); Monocytes # 1.1 K/mcL (0.0-1.3); Monocytes % 6.3 %; Neutrophils # 10.7 K/mcL (1.6-8.9); Platelet Count 413 K/mcL (140-400); Red Blood Count 3.94 M/mcL (4.19-5.50); Red Cell Distribution Width 13.4 % (11.5-14.5); Segmented Neutrophils % 59.3 %
[2020-02-21 06:02] LABS: White Blood Count 18.1 K/mcL (4.3-11.1)
[2020-02-21 06:16] LABS: BUN/Creatinine Ratio 15 (6-26); Blood Urea Nitrogen 8 mg/dL (8-23); Calcium 9.2 mg/dL (8.6-10.3); Carbon Dioxide 26 mEq/L (23-29); Chloride 100 mEq/L (98-107); Glucose 60 mg/dL (70-105); Osmolality,Calculated 278 (280-300); Potassium 3.5 mEq/L (3.5-5.1); Sodium 136 mEq/L (136-145); eGFR For African Americans > 60 (> 60); eGFR For Non-African Americans > 60 (> 60)
[2020-02-21 06:18] LABS: Platelet Estimate Normal (Normal); Reactive Lymphocytes Present (Not Present)
[2020-02-21] MEDS: Gabapentin 400 MG CAPSULE PO SCH ×4 (07:56→20:51)
[2020-02-21] MEDS ORDERED: Insulin DETEMIR 100 UNIT/ML X5UNITS SUBQ ONE (22:47)
[2020-02-21] MEDS: Insulin DETEMIR 100 UNIT/ML X5UNITS SUBQ SCH (22:48)
[2020-02-21] MEDS: Nicotine 21 MG PATCH.TD24 TD SCH (23:34)
[2020-02-22] MEDS ORDERED: 0.9 % Sodium Chloride 500 ML IVC ONE (03:09)
[2020-02-22] MEDS: levETIRAcetam 250 MG TABLET PO SCH ×2 (05:22→17:25)
[2020-02-22] MEDS: *HR* Heparin 5,000 UNIT/ML VIAL SQ SCH ×2 (05:22→17:25)
[2020-02-22 05:58] LABS: Basophils % 0.4 %; Eosinophils # 0.1 K/mcL (0.0-0.6); Eosinophils % 0.8 %; Hematocrit 38.6 % (37.5-50.1); Immature Granulocytes % 0.7 % (0-4); Lymphocytes % 30.2 %; Mean Corpuscular HGB Conc 33.7 g/dL (31.6-35.5); Mean Corpuscular Hemoglobin 32.3 pg (28.0-33.3); Mean Platelet Volume 9.2 fL (9.4-12.4); Monocytes # 0.5 K/mcL (0.0-1.3); Monocytes % 5.1 %; Neutrophils # 6.3 K/mcL (1.6-8.9); Platelet Count 293 K/mcL (140-400); Red Blood Count 4.02 M/mcL (4.19-5.50); Red Cell Distribution Width 13.9 % (11.5-14.5); Segmented Neutrophils % 62.8 %
[2020-02-22 06:41] LABS: Alanine Aminotransferase 7 Units/L (7-52); Albumin 3.1 g/dL (3.5-5.7); Albumin/Globulin Ratio 1.3 (1.1-2.2); Alkaline Phosphatase 87 Units/L (34-104); Aspartate Amino Transferase 13 Units/L (13-39); BUN/Creatinine Ratio 16 (6-26); Bilirubin,Total 0.3 mg/dL (0.3-1.0); Blood Urea Nitrogen 10 mg/dL (8-23); Calcium 8.5 mg/dL (8.6-10.3); Carbon Dioxide 23 mEq/L (23-29); Chloride 102 mEq/L (98-107); Globulin 2.4 g/dL (2.4-3.5); Glucose 222 mg/dL (70-105); Osmolality,Calculated 286 (280-300); Potassium 3.7 mEq/L (3.5-5.1); Sodium 135 mEq/L (136-145); Total Protein 5.5 g/dL (6.4-8.9); eGFR For African Americans > 60 (> 60); eGFR For Non-African Americans > 60 (> 60)
[2020-02-22] MEDS: cefTRIAXone 1,000 MG in Water for inj. (sterile) 10 ML IVP SCH (08:26)
[2020-02-22] MEDS: Gabapentin 400 MG CAPSULE PO SCH ×3 (08:27→19:31)
[2020-02-22] MEDS: Insulin DETEMIR 100 UNIT/ML X5UNITS SUBQ SCH ×2 (08:28→21:39)
[2020-02-22] MEDS: Insulin LISPRO 300 UNITS/3 ML VIAL SUBQ SCH ×3 (08:28→17:09)
[2020-02-22] MEDS: Nicotine 21 MG PATCH.TD24 TD SCH (19:31)
[2020-02-23 05:24] LABS: Hematocrit 37.5 % (37.5-50.1); Hemoglobin 12.6 g/dL (12.9-16.9); Mean Corpuscular HGB Conc 33.6 g/dL (31.6-35.5); Mean Corpuscular Hemoglobin 32.2 pg (28.0-33.3); Mean Corpuscular Volume 95.9 fL (83.0-100.0); Mean Platelet Volume 8.9 fL (9.4-12.4); Platelet Count 331 K/mcL (140-400); Red Blood Count 3.91 M/mcL (4.19-5.50); Red Cell Distribution Width 13.8 % (11.5-14.5); White Blood Count 8.9 K/mcL (4.3-11.1)
[2020-02-23 05:39] LABS: Alanine Aminotransferase 7 Units/L (7-52); Albumin 3.2 g/dL (3.5-5.7); Albumin/Globulin Ratio 1.3 (1.1-2.2); Alkaline Phosphatase 82 Units/L (34-104); Aspartate Amino Transferase 11 Units/L (13-39); BUN/Creatinine Ratio 18 (6-26); Bilirubin,Total 0.2 mg/dL (0.3-1.0); Blood Urea Nitrogen 9 mg/dL (8-23); Calcium 8.7 mg/dL (8.6-10.3); Carbon Dioxide 23 mEq/L (23-29); Chloride 108 mEq/L (98-107); Globulin 2.5 g/dL (2.4-3.5); Glucose 70 mg/dL (70-105); Osmolality,Calculated 285 (280-300); Potassium 3.3 mEq/L (3.5-5.1); Sodium 139 mEq/L (136-145); Total Protein 5.7 g/dL (6.4-8.9); eGFR For African Americans > 60 (> 60); eGFR For Non-African Americans > 60 (> 60)
[2020-02-23] MEDS: *HR* Heparin 5,000 UNIT/ML VIAL SQ SCH (05:48)
[2020-02-23] MEDS: levETIRAcetam 250 MG TABLET PO SCH (05:49)
[2020-02-23] MEDS: Gabapentin 400 MG CAPSULE PO SCH ×2 (09:59→15:34)
[2020-02-23] MEDS: cefTRIAXone 1,000 MG in Water for inj. (sterile) 10 ML IVP SCH (09:59)
[2020-02-23] MEDS: Insulin DETEMIR 100 UNIT/ML X5UNITS SUBQ SCH (10:00)
[2020-02-23] MEDS: Insulin LISPRO 300 UNITS/3 ML VIAL SUBQ SCH ×2 (10:39→12:16)
[2020-02-23 14:26] VITALS: BP 117/70
== END 2020-02-23 16:41 | disposition home or self-care (01) ==
LOC: EMEROOARM 17:39 → 3ANU 17:39 → SUATTDRO 23:36 → 3ANU 23:50
PROVIDERS: ADMIT Internal Medicine; ATTEND Internal Medicine

== ENCOUNTER 2020-07-23 19:01 | Observation (INO) ==
[2020-07-23] MEDS ORDERED: Morphine Sulfate 2 MG/ML SYRINGE IVP ONE (19:41)
[2020-07-23] MEDS ORDERED: Ketorolac 15 MG/ML VIAL IVP ONE (19:41)
[2020-07-23] MEDS ORDERED: *HR* LORazepam 2 MG/ML VIAL IVP ONE (19:41)
[2020-07-23 20:19] LABS: Hematocrit 37.2 % (37.5-50.1); Hemoglobin 11.8 g/dL (12.9-16.9); Mean Corpuscular HGB Conc 31.7 g/dL (31.6-35.5); Mean Corpuscular Hemoglobin 30.4 pg (28.0-33.3); Mean Corpuscular Volume 95.9 fL (83.0-100.0); Mean Platelet Volume 8.5 fL (9.4-12.4); Platelet Count 308 K/mcL (140-400); Red Blood Count 3.88 M/mcL (4.19-5.50); Red Cell Distribution Width 14.5 % (11.5-14.5); White Blood Count 8.4 K/mcL (4.3-11.1)
[2020-07-23] MEDS ORDERED: 0.9 % Sodium Chloride 1,000 ML IVC ONE (20:44)
[2020-07-23 20:45] LABS: BUN/Creatinine Ratio 9 (6-26); Blood Urea Nitrogen 8 mg/dL (8-23); Calcium 8.9 mg/dL (8.6-10.3); Carbon Dioxide 23 mEq/L (23-29); Chloride 94 mEq/L (98-107); Glucose 691 mg/dL (70-105); Osmolality,Calculated 299 (280-300); Potassium 4.4 mEq/L (3.5-5.1); Sodium 129 mEq/L (136-145); Troponin I < 0.03 ng/mL (< 0.04); eGFR For African Americans > 60 (> 60); eGFR For Non-African Americans > 60 (> 60)
[2020-07-23 21:20] LABS: VBG HCO3 25 mEq/L (21-27); VBG PCO2 39 mmHg (41-51); VBG PO2 60 mmHg (25-50)
[2020-07-23] MEDS ORDERED: Insulin Human Regular 20 UNIT in 0.9 % Sodium Chloride 10 ML IV ONE (21:45)
[2020-07-23] MEDS ORDERED: *HR* HYDROmorphone (PF) 1 MG/ML SYRINGE IVP ONE ×2 (22:38→23:44)
[2020-07-23] MEDS ORDERED: Insulin Human Regular 10 UNIT in 0.9 % Sodium Chloride 10 ML IV ONE (23:23)
[2020-07-23] MEDS: 0.9 % Sodium Chloride 1,000 ML IVC SCH (23:43)
[2020-07-24] MEDS ORDERED: Naloxone 0.4 MG/ML INJ IVP PRN (01:04)
[2020-07-24] MEDS ORDERED: Ondansetron 4 MG/2 ML VIAL IVP PRN (01:04)
[2020-07-24] MEDS ORDERED: Acetaminophen 325 MG TABLET PO PRN (01:04)
[2020-07-24] MEDS ORDERED: Melatonin 3 MG TABLET PO PRN (01:04)
[2020-07-24] MEDS ORDERED: Morphine Sulfate 2 MG/ML SYRINGE IVP ONE (01:42)
[2020-07-24 01:51] LABS: Basophils # 0.1 K/mcL (0.0-0.2); Basophils % 0.5 %; Eosinophils # 0.1 K/mcL (0.0-0.6); Eosinophils % 0.9 %; Hematocrit 34.4 % (37.5-50.1); Hemoglobin 11.2 g/dL (12.9-16.9); Immature Granulocytes % 0.4 % (0-4); Lymphocytes # 4.4 K/mcL (0.6-4.6); Lymphocytes % 46.2 %; Mean Corpuscular HGB Conc 32.6 g/dL (31.6-35.5); Mean Corpuscular Hemoglobin 30.4 pg (28.0-33.3); Mean Corpuscular Volume 93.2 fL (83.0-100.0); Mean Platelet Volume 8.4 fL (9.4-12.4); Monocytes # 0.4 K/mcL (0.0-1.3); Monocytes % 4.2 %; Neutrophils # 4.6 K/mcL (1.6-8.9); Platelet Count 337 K/mcL (140-400); Red Blood Count 3.69 M/mcL (4.19-5.50); Red Cell Distribution Width 14.2 % (11.5-14.5); Segmented Neutrophils % 47.8 %; White Blood Count 9.6 K/mcL (4.3-11.1)
[2020-07-24 01:58] LABS: INR 0.9; Prothrombin Time 10.7 Seconds (9.4-12.1)
[2020-07-24 02:11] LABS: Alanine Aminotransferase 27 Units/L (7-52); Albumin 3.3 g/dL (3.5-5.7); Albumin/Globulin Ratio 1.2 (1.1-2.2); Alkaline Phosphatase 293 Units/L (34-104); Aspartate Amino Transferase 19 Units/L (13-39); BUN/Creatinine Ratio 11 (6-26); Bilirubin,Total 0.3 mg/dL (0.3-1.0); Blood Urea Nitrogen 7 mg/dL (8-23); Calcium 8.9 mg/dL (8.6-10.3); Carbon Dioxide 23 mEq/L (23-29); Chloride 105 mEq/L (98-107); Globulin 2.7 g/dL (2.4-3.5); Glucose 94 mg/dL (70-105); Magnesium 1.6 mg/dL (1.6-2.6); Osmolality,Calculated 280 (280-300); Phosphorous 2.5 mg/dL (2.7-4.5); Potassium 3.2 mEq/L (3.5-5.1); Sodium 136 mEq/L (136-145); eGFR For African Americans > 60 (> 60); eGFR For Non-African Americans > 60 (> 60)
[2020-07-24] MEDS ORDERED: *HR* Dextrose 50 % in Water (Vial) 50 ML VIAL IVP PRN (02:26)
[2020-07-24] MEDS ORDERED: D5% in Water 1,000 ML IVC PRN (02:26)
[2020-07-24] MEDS ORDERED: Dextrose Gel 15 GM/37.5 ML TUBE PO PRN ×2 (02:26)
[2020-07-24 02:58] LABS: Platelet Estimate Normal (Normal)
[2020-07-24] MEDS ORDERED: Morphine PCA 30 MG/ 30 ML 30 ML PCA.VIAL IVC PRN (03:04)
[2020-07-24] MEDS ORDERED: 0.9 % Sodium Chloride 250 ML ONE (04:44)
[2020-07-24] MEDS ORDERED: Potassium Chloride 40 MEQ, Lidocaine 1% 2 ML in 0.9 % Sodium Chloride 500 ML IVPB ONE (06:00)
[2020-07-24] MEDS ORDERED: 0.9 % Sodium Chloride 1,000 ML IVC ONE (06:57)
[2020-07-24 08:48] VITALS: BP 126/75
[2020-07-24] MEDS: 0.9 % Sodium Chloride 1,000 ML IVC SCH (09:11)
[2020-07-24] MEDS: *HR* Enoxaparin 80 MG/0.8 ML SYRINGE SQ SCH ×2 (09:42→17:07)
[2020-07-24] MEDS ORDERED: *HR* OxyCODONE Immed Rel 5 MG TABLET PO PRN ×2 (10:34→10:35)
[2020-07-24] MEDS: Insulin LISPRO 300 UNITS/3 ML VIAL SUBQ SCH ×2 (12:11→17:07)
[2020-07-24] MEDS ORDERED: *HR* LORazepam 2 MG/ML VIAL IVP ONE (13:12)
[2020-07-24] MEDS ORDERED: levETIRAcetam 250 MG TABLET PO SCH (16:00)
[2020-07-24] MEDS ORDERED: Gabapentin 400 MG CAPSULE PO SCH (21:00)
== END 2020-07-24 19:30 | disposition left against medical advice (07) ==
LOC: EMEROOARM 19:01 → 2NENU 19:01
PROVIDERS: ADMIT Family Medicine; ATTEND Family Medicine

== ENCOUNTER 2020-08-03 23:48 | Inpatient (IN) ==
[2020-08-04] MEDS ORDERED: Morphine Sulfate 2 MG/ML SYRINGE IVP ONE (01:33)
[2020-08-04] MEDS ORDERED: Ketorolac 15 MG/ML VIAL IVP ONE (01:33)
[2020-08-04] MEDS ORDERED: 0.9 % Sodium Chloride 1,000 ML IVC ONE (01:33)
[2020-08-04 02:03] LABS: Amphetamine Screen,Urine Negative ng/mL (Cutoff=1000); Barbiturate Screen,Urine Negative ng/mL (Cutoff=200); Benzodiazepines Screen,Urine Negative ng/mL (Cutoff=200); Cannabinoid Screen,Urine Negative ng/mL (Cutoff = 50); Cocaine Screen,Urine Negative ng/mL (Cutoff= 300); Opiate Screen,Urine Negative ng/mL (Cutoff=300); Phencyclidine Screen,Urine Negative ng/mL (Cutoff=25)
[2020-08-04 02:05] LABS: Bilirubin,Urine Negative (Negative); Blood,Urine Small (Negative); Budding Yeast,Urine Few per hpf (None Seen); Clarity,Urine Clear (Clear); Color,Urine Light-Yellow (Yellow); Glucose,Urine (UA) >=1000 mg/dL (Normal); Ketones,Urine 10 mg/dL (Negative); Leukocyte Esterase,Urine Moderate (Negative); Nitrite,Urine Negative (Negative); Protein,Urine 100 mg/dL (Neg-Trace); RBC,Urine 15-30 per hpf (0-3); Specific Gravity,Urine > 1.030 (1.010-1.025); Squamous Epithelial Cell,Urine Few per hpf (None-Few); Urobilinogen,Urine Normal (Normal); WBC,Urine 50-100 per hpf (0-3)
[2020-08-04 02:58] LABS: Basophils # 0.1 K/mcL (0.0-0.2); Basophils % 0.7 %; Eosinophils # 0.1 K/mcL (0.0-0.6); Eosinophils % 0.5 %; Hematocrit 40.1 % (37.5-50.1); Hemoglobin 13.1 g/dL (12.9-16.9); Immature Granulocytes % 0.5 % (0-4); Lymphocytes # 2.9 K/mcL (0.6-4.6); Lymphocytes % 26.3 %; Mean Corpuscular HGB Conc 32.7 g/dL (31.6-35.5); Mean Corpuscular Hemoglobin 30.5 pg (28.0-33.3); Mean Corpuscular Volume 93.3 fL (83.0-100.0); Mean Platelet Volume 8.5 fL (9.4-12.4); Monocytes # 0.4 K/mcL (0.0-1.3); Monocytes % 3.8 %; Neutrophils # 7.6 K/mcL (1.6-8.9); Platelet Count 421 K/mcL (140-400); Red Cell Distribution Width 15.1 % (11.5-14.5); Segmented Neutrophils % 68.2 %; White Blood Count 11.1 K/mcL (4.3-11.1)
[2020-08-04] MEDS ORDERED: cefTRIAXone 1,000 MG in Water for inj. (sterile) 10 ML IVP ONE (03:11)
[2020-08-04 03:18] LABS: Alanine Aminotransferase 13 Units/L (7-52); Albumin 3.7 g/dL (3.5-5.7); Albumin/Globulin Ratio 1.2 (1.1-2.2); Alkaline Phosphatase 199 Units/L (34-104); Aspartate Amino Transferase 11 Units/L (13-39); BUN/Creatinine Ratio 15 (6-26); Bilirubin,Direct 0.1 mg/dL (0.0-0.2); Bilirubin,Indirect 0.4 mg/dL (0.0-1.0); Bilirubin,Total 0.5 mg/dL (0.3-1.0); Blood Urea Nitrogen 9 mg/dL (8-23); Calcium 9.3 mg/dL (8.6-10.3); Carbon Dioxide 25 mEq/L (23-29); Chloride 96 mEq/L (98-107); Ethanol < 10 mg/dL (Less than 10); Glucose 340 mg/dL (70-105); Osmolality,Calculated 282 (280-300); Potassium 4.2 mEq/L (3.5-5.1); Sodium 130 mEq/L (136-145); Total Protein 6.7 g/dL (6.4-8.9); Troponin I < 0.03 ng/mL (< 0.04); eGFR For African Americans > 60 (> 60); eGFR For Non-African Americans > 60 (> 60)
[2020-08-04] MEDS ORDERED: Gadolinium Contrast Agent (WT Based) IV PRN (04:01)
[2020-08-04] MEDS ORDERED: *HR* HYDROcodone/Acet 5/325 mg TABLET PO ONE (04:48)
[2020-08-04] MEDS ORDERED: Morphine Sulfate 2 MG/ML SYRINGE IVP PRN (06:02)
[2020-08-04] MEDS ORDERED: Naloxone 0.4 MG/ML INJ IVP PRN (07:26)
[2020-08-04] MEDS ORDERED: *HR* OxyCODONE Immed Rel 5 MG TABLET PO PRN (07:26)
[2020-08-04] MEDS ORDERED: Ondansetron 4 MG/2 ML VIAL IVP PRN (07:26)
[2020-08-04] MEDS ORDERED: Acetaminophen 325 MG TABLET PO PRN (07:26)
[2020-08-04] MEDS ORDERED: *HR* HYDROcodone/Acet 5/325 mg TABLET PO PRN (07:26)
[2020-08-04] MEDS ORDERED: Dextrose Gel 15 GM/37.5 ML TUBE PO PRN ×2 (07:28)
[2020-08-04] MEDS ORDERED: *HR* Dextrose 50 % in Water (Vial) 50 ML VIAL IVP PRN (07:28)
[2020-08-04] MEDS ORDERED: D5% in Water 1,000 ML IVC PRN (07:28)
[2020-08-04 09:07] LABS: BUN/Creatinine Ratio 19 (6-26); Blood Urea Nitrogen 11 mg/dL (8-23); Calcium 8.7 mg/dL (8.6-10.3); Carbon Dioxide 24 mEq/L (23-29); Chloride 100 mEq/L (98-107); Glucose 333 mg/dL (70-105); Osmolality,Calculated 284 (280-300); Potassium 4.1 mEq/L (3.5-5.1); Sodium 131 mEq/L (136-145); eGFR For African Americans > 60 (> 60); eGFR For Non-African Americans > 60 (> 60)
[2020-08-04] MEDS: 0.9 % Sodium Chloride 1,000 ML IVC SCH (09:08)
[2020-08-04] MEDS: Insulin LISPRO 300 UNITS/3 ML VIAL SUBQ SCH ×3 (09:10→17:46)
[2020-08-04] MEDS ORDERED: Gabapentin 100 MG CAPSULE PO SCH (10:00)
[2020-08-04] MEDS: tiZANidine 4 MG TABLET PO PRN (12:26)
[2020-08-04] MEDS ORDERED: Insulin Human Regular 10 UNIT in 0.9 % Sodium Chloride 10 ML IV ONE (13:05)
[2020-08-04] MEDS: levETIRAcetam 250 MG TABLET PO SCH (14:21)
[2020-08-04] MEDS: Gabapentin 300 MG CAPSULE PO SCH ×2 (14:21→20:11)
[2020-08-04] MEDS: *HR* OxyCODONE Immed Rel 5 MG TABLET PO PRN ×3 (14:34→22:36)
[2020-08-04] MEDS: *HR* HYDROcodone/Acet 5/325 mg TABLET PO PRN ×2 (15:38→20:11)
[2020-08-04] MEDS: Insulin DETEMIR 100 UNIT/ML X5UNITS SUBQ SCH (20:11)
[2020-08-05] MEDS: 0.9 % Sodium Chloride 1,000 ML IVC SCH (00:35)
[2020-08-05] MEDS: levETIRAcetam 250 MG TABLET PO SCH ×2 (00:37→15:04)
[2020-08-05] MEDS: *HR* HYDROcodone/Acet 5/325 mg TABLET PO PRN ×2 (00:37→09:17)
[2020-08-05] MEDS: *HR* OxyCODONE Immed Rel 5 MG TABLET PO PRN ×2 (05:58→11:32)
[2020-08-05 06:08] LABS: Basophils # 0.1 K/mcL (0.0-0.2); Basophils % 0.5 %; Eosinophils # 0.1 K/mcL (0.0-0.6); Eosinophils % 0.8 %; Hemoglobin 11.6 g/dL (12.9-16.9); Immature Granulocytes % 0.6 % (0-4); Lymphocytes # 2.9 K/mcL (0.6-4.6); Mean Corpuscular HGB Conc 32.2 g/dL (31.6-35.5); Mean Corpuscular Hemoglobin 30.9 pg (28.0-33.3); Mean Platelet Volume 8.9 fL (9.4-12.4); Monocytes # 0.5 K/mcL (0.0-1.3); Monocytes % 3.5 %; Neutrophils # 9.2 K/mcL (1.6-8.9); Platelet Count 386 K/mcL (140-400); Red Blood Count 3.75 M/mcL (4.19-5.50); Red Cell Distribution Width 15.7 % (11.5-14.5); Segmented Neutrophils % 71.6 %; White Blood Count 12.8 K/mcL (4.3-11.1)
[2020-08-05 06:26] LABS: BUN/Creatinine Ratio 27 (6-26); Blood Urea Nitrogen 17 mg/dL (8-23); Calcium 8.5 mg/dL (8.6-10.3); Carbon Dioxide 22 mEq/L (23-29); Chloride 109 mEq/L (98-107); Glucose 144 mg/dL (70-105); Osmolality,Calculated 288 (280-300); Potassium 4.4 mEq/L (3.5-5.1); Sodium 137 mEq/L (136-145); eGFR For African Americans > 60 (> 60); eGFR For Non-African Americans > 60 (> 60)
[2020-08-05] MEDS ORDERED: Perflutren Lipid Microsphere 1.3 ML in 0.9 % Sodium Chloride 8.7 ML IVP PRN (07:41)
[2020-08-05] MEDS: Gabapentin 300 MG CAPSULE PO SCH ×3 (09:17→19:52)
[2020-08-05] MEDS: MethylPREDNISolone 40 MG/ML VIAL IVP SCH (09:17)
[2020-08-05] MEDS: Insulin LISPRO 300 UNITS/3 ML VIAL SUBQ SCH ×3 (09:21→16:57)
[2020-08-05] MEDS: Aspirin 81 MG TAB.CHEW PO SCH (12:05)
[2020-08-05] MEDS: Morphine Sulfate 2 MG/ML SYRINGE IVP PRN ×5 (12:18→21:57)
[2020-08-05] MEDS: *HR* OxyCODONE/APAP 10/325 TABLET PO SCH (18:35)
[2020-08-05] MEDS: Insulin DETEMIR 100 UNIT/ML X5UNITS SUBQ SCH (19:52)
[2020-08-05] MEDS ORDERED: Insulin LISPRO 300 UNITS/3 ML VIAL SUBQ ONE (23:57)
[2020-08-06] MEDS: levETIRAcetam 250 MG TABLET PO SCH ×2 (00:06→12:18)
[2020-08-06] MEDS: *HR* OxyCODONE/APAP 10/325 TABLET PO SCH ×5 (00:06→20:16)
[2020-08-06] MEDS: Ketorolac 30 MG/ML VIAL IVP PRN ×2 (00:54→09:05)
[2020-08-06] MEDS ORDERED: Aspirin 81 MG TAB.CHEW PO ONE (01:08)
[2020-08-06] MEDS ORDERED: Gadolinium Contrast Agent (WT Based) IV PRN (01:08)
[2020-08-06 01:34] LABS: Hematocrit 33.4 % (37.5-50.1); Mean Corpuscular HGB Conc 32.9 g/dL (31.6-35.5); Mean Corpuscular Hemoglobin 31.1 pg (28.0-33.3); Mean Corpuscular Volume 94.4 fL (83.0-100.0); Mean Platelet Volume 8.8 fL (9.4-12.4); Platelet Count 381 K/mcL (140-400); Red Blood Count 3.54 M/mcL (4.19-5.50); White Blood Count 11.1 K/mcL (4.3-11.1)
[2020-08-06 01:49] LABS: BUN/Creatinine Ratio 28 (6-26); Blood Urea Nitrogen 21 mg/dL (8-23); Calcium 8.3 mg/dL (8.6-10.3); Carbon Dioxide 22 mEq/L (23-29); Chloride 101 mEq/L (98-107); Glucose 409 mg/dL (70-105); Osmolality,Calculated 290 (280-300); Potassium 4.2 mEq/L (3.5-5.1); Sodium 130 mEq/L (136-145); eGFR For African Americans > 60 (> 60); eGFR For Non-African Americans > 60 (> 60)
[2020-08-06] MEDS ORDERED: Acetaminophen IV 1,000 MG/100 ML BAG IVPB ONE (02:21)
[2020-08-06] MEDS: Morphine Sulfate 2 MG/ML SYRINGE IVP PRN ×4 (02:42→22:00)
[2020-08-06] MEDS: Gabapentin 300 MG CAPSULE PO SCH ×3 (09:05→20:16)
[2020-08-06] MEDS: Aspirin 81 MG TAB.CHEW PO SCH (09:05)
[2020-08-06] MEDS: MethylPREDNISolone 40 MG/ML VIAL IVP SCH (09:05)
[2020-08-06] MEDS: Insulin LISPRO 300 UNITS/3 ML VIAL SUBQ SCH ×3 (09:06→17:09)
[2020-08-06] MEDS: Insulin DETEMIR 100 UNIT/ML X5UNITS SUBQ SCH ×2 (09:12→20:16)
[2020-08-07] MEDS: levETIRAcetam 250 MG TABLET PO SCH ×3 (00:53→23:37)
[2020-08-07] MEDS: *HR* OxyCODONE/APAP 10/325 TABLET PO SCH ×7 (00:53→23:35)
[2020-08-07 05:18] LABS: Hematocrit 33.6 % (37.5-50.1); Hemoglobin 11.3 g/dL (12.9-16.9); Mean Corpuscular HGB Conc 33.6 g/dL (31.6-35.5); Mean Corpuscular Hemoglobin 30.9 pg (28.0-33.3); Mean Corpuscular Volume 91.8 fL (83.0-100.0); Mean Platelet Volume 8.6 fL (9.4-12.4); Platelet Count 377 K/mcL (140-400); Red Blood Count 3.66 M/mcL (4.19-5.50); White Blood Count 11.3 K/mcL (4.3-11.1)
[2020-08-07 05:36] LABS: BUN/Creatinine Ratio 36 (6-26); Blood Urea Nitrogen 25 mg/dL (8-23); Carbon Dioxide 23 mEq/L (23-29); Chloride 106 mEq/L (98-107); Glucose 146 mg/dL (70-105); Osmolality,Calculated 289 (280-300); Potassium 4.1 mEq/L (3.5-5.1); Sodium 136 mEq/L (136-145); eGFR For African Americans > 60 (> 60); eGFR For Non-African Americans > 60 (> 60)
[2020-08-07] MEDS: Insulin LISPRO 300 UNITS/3 ML VIAL SUBQ SCH ×3 (08:16→15:47)
[2020-08-07] MEDS: Gabapentin 300 MG CAPSULE PO SCH ×3 (08:21→19:49)
[2020-08-07] MEDS: Aspirin 81 MG TAB.CHEW PO SCH (08:21)
[2020-08-07] MEDS: Insulin DETEMIR 100 UNIT/ML X5UNITS SUBQ SCH ×2 (08:22→21:27)
[2020-08-07] MEDS: Morphine Sulfate 2 MG/ML SYRINGE IVP PRN ×5 (10:56→23:50)
[2020-08-07] MEDS ORDERED: Perflutren Lipid Microsphere 1.3 ML in 0.9 % Sodium Chloride 8.7 ML IVP PRN (15:47)
[2020-08-08] MEDS: Morphine Sulfate 2 MG/ML SYRINGE IVP PRN ×9 (01:50→20:58)
[2020-08-08] MEDS: tiZANidine 4 MG TABLET PO PRN (02:54)
[2020-08-08] MEDS: *HR* OxyCODONE/APAP 10/325 TABLET PO SCH ×5 (03:27→20:16)
[2020-08-08] MEDS: Aspirin 81 MG TAB.CHEW PO SCH (08:21)
[2020-08-08] MEDS: Gabapentin 300 MG CAPSULE PO SCH ×3 (08:21→20:57)
[2020-08-08] MEDS: Insulin LISPRO 300 UNITS/3 ML VIAL SUBQ SCH ×3 (08:32→16:43)
[2020-08-08] MEDS: Insulin DETEMIR 100 UNIT/ML X5UNITS SUBQ SCH ×2 (08:35→21:01)
[2020-08-08] MEDS: levETIRAcetam 250 MG TABLET PO SCH (12:34)
[2020-08-08] MEDS: hydrOXYzine pamoate 25 MG CAPSULE PO PRN (20:57)
[2020-08-09] MEDS: levETIRAcetam 250 MG TABLET PO SCH ×2 (00:10→11:51)
[2020-08-09] MEDS: Morphine Sulfate 2 MG/ML SYRINGE IVP PRN ×6 (00:11→21:28)
[2020-08-09] MEDS: *HR* OxyCODONE/APAP 10/325 TABLET PO SCH ×6 (00:11→20:11)
[2020-08-09] MEDS: Gabapentin 300 MG CAPSULE PO SCH ×3 (07:42→20:12)
[2020-08-09] MEDS: Aspirin 81 MG TAB.CHEW PO SCH (07:42)
[2020-08-09] MEDS: Insulin LISPRO 300 UNITS/3 ML VIAL SUBQ SCH ×3 (09:55→17:05)
[2020-08-09] MEDS: Insulin DETEMIR 100 UNIT/ML X5UNITS SUBQ SCH ×2 (09:56→20:12)
[2020-08-09] MEDS: *HR* Heparin 5,000 UNIT/ML VIAL SQ SCH ×2 (14:22→21:27)
[2020-08-09] MEDS: hydrOXYzine pamoate 25 MG CAPSULE PO PRN (19:23)
[2020-08-09] MEDS: Sennosides 8.6 MG TABLET PO SCH (20:12)
[2020-08-10] MEDS: *HR* OxyCODONE/APAP 10/325 TABLET PO SCH ×3 (00:22→08:42)
[2020-08-10] MEDS: Morphine Sulfate 2 MG/ML SYRINGE IVP PRN ×3 (01:19→10:08)
[2020-08-10] MEDS: levETIRAcetam 250 MG TABLET PO SCH (01:20)
[2020-08-10] MEDS: *HR* Heparin 5,000 UNIT/ML VIAL SQ SCH (05:34)
[2020-08-10 08:36] VITALS: BP 120/68
[2020-08-10] MEDS: Insulin LISPRO 300 UNITS/3 ML VIAL SUBQ SCH (08:36)
[2020-08-10] MEDS: Aspirin 81 MG TAB.CHEW PO SCH (08:42)
[2020-08-10] MEDS: Sennosides 8.6 MG TABLET PO SCH (08:42)
[2020-08-10] MEDS: Gabapentin 300 MG CAPSULE PO SCH (08:42)
[2020-08-10] MEDS: Insulin DETEMIR 100 UNIT/ML X5UNITS SUBQ SCH (08:42)
[2020-08-10 11:05] LABS: Influenza A PCR Negative (Negative); Influenza B PCR Negative (Negative); Resp. Syncytial Virus PCR Negative (Negative); SARS-CoV-2 by PCR (In House) Negative (Negative)
== END 2020-08-10 12:00 | DRG 64 ==
LOC: 3NENU 23:48 → EMEROOARM 23:48 → SUATTDRO 08-04 04:16 → 3NENU 08-04 05:05 → SUATTDRO 08-06 10:25 → 3ANU 08-07 18:55
PROVIDERS: ADMIT Family Medicine; ATTEND Student in an Organized Health Care Education/Training Program

== ENCOUNTER 2020-08-15 13:58 | Observation (INO) ==
[2020-08-15] MEDS ORDERED: Aspirin 81 MG TAB.CHEW PO ONE (14:00)
[2020-08-15] MEDS: Nitroglycerin 0.4 MG TAB.SUBL SL PRN ×3 (14:34→22:37)
[2020-08-15 14:36] LABS: Basophils # 0.1 K/mcL (0.0-0.2); Basophils % 0.9 %; Eosinophils # 0.1 K/mcL (0.0-0.6); Eosinophils % 0.7 %; Hematocrit 45.5 % (37.5-50.1); Immature Granulocytes % 0.4 % (0-4); Lymphocytes # 3.4 K/mcL (0.6-4.6); Mean Corpuscular HGB Conc 32.7 g/dL (31.6-35.5); Mean Corpuscular Hemoglobin 30.3 pg (28.0-33.3); Mean Corpuscular Volume 92.7 fL (83.0-100.0); Mean Platelet Volume 8.7 fL (9.4-12.4); Monocytes # 0.6 K/mcL (0.0-1.3); Monocytes % 5.7 %; Neutrophils # 5.8 K/mcL (1.6-8.9); Platelet Count 436 K/mcL (140-400); Red Blood Count 4.91 M/mcL (4.19-5.50); Red Cell Distribution Width 15.2 % (11.5-14.5); Segmented Neutrophils % 58.3 %
[2020-08-15 14:40] LABS: Hemoglobin 14.9 g/dL (12.9-16.9)
[2020-08-15 14:44] LABS: Prothrombin Time 11.9 Seconds (9.4-12.1)
[2020-08-15 14:46] LABS: Activated Partial Thrombo Time 32.7 Seconds (26.0-36.0)
[2020-08-15] MEDS ORDERED: 0.9 % Sodium Chloride 1,000 ML IVC ONE (14:51)
[2020-08-15 15:09] LABS: Alanine Aminotransferase 21 Units/L (7-52); Albumin 4.2 g/dL (3.5-5.7); Albumin/Globulin Ratio 1.3 (1.1-2.2); Alkaline Phosphatase 162 Units/L (34-104); Aspartate Amino Transferase 11 Units/L (13-39); BUN/Creatinine Ratio 24 (6-26); Bilirubin,Direct 0.1 mg/dL (0.0-0.2); Bilirubin,Indirect 0.7 mg/dL (0.0-1.0); Bilirubin,Total 0.8 mg/dL (0.3-1.0); Blood Urea Nitrogen 17 mg/dL (8-23); Calcium 9.9 mg/dL (8.6-10.3); Carbon Dioxide 24 mEq/L (23-29); Chloride 97 mEq/L (98-107); Globulin 3.3 g/dL (2.4-3.5); Glucose 219 mg/dL (70-105); Lipase 24 Units/L (11-82); Osmolality,Calculated 286 (280-300); Potassium 4.1 mEq/L (3.5-5.1); Sodium 134 mEq/L (136-145); Total Protein 7.5 g/dL (6.4-8.9); Troponin I < 0.03 ng/mL (< 0.04); eGFR For African Americans > 60 (> 60); eGFR For Non-African Americans > 60 (> 60)
[2020-08-15 15:29] LABS: Bilirubin,Urine Small (Negative); Blood,Urine Moderate (Negative); Clarity,Urine Cloudy (Clear); Color,Urine Yellow (Yellow); Glucose,Urine (UA) 250 mg/dL (Normal); Ketones,Urine 15 mg/dL (Negative); Leukocyte Esterase,Urine Trace (Negative); Nitrite,Urine Negative (Negative); Protein,Urine >=300 mg/dL (Neg-Trace); Specific Gravity,Urine >= 1.030 (1.010-1.025); Urobilinogen,Urine Normal (Normal)
[2020-08-15 15:39] LABS: Budding Yeast,Urine Many per hpf (None Seen); Mucus,Urine Many per lpf (None-Few); RBC,Urine 50-100 per hpf (0-3); Squamous Epithelial Cell,Urine Few per hpf (None-Few); WBC,Urine TNTC per hpf (0-3)
[2020-08-15] MEDS ORDERED: Morphine Sulfate 2 MG/ML SYRINGE IVP STA (15:51)
[2020-08-15] MEDS ORDERED: cefTRIAXone 1,000 MG in Water for inj. (sterile) 10 ML IVP ONE (16:04)
[2020-08-15] MEDS ORDERED: Mag Hydrox/Al Hydrox/Simeth 30 ML UDC PO PRN (16:25)
[2020-08-15] MEDS ORDERED: Naloxone 0.4 MG/ML INJ IVP PRN (16:25)
[2020-08-15] MEDS ORDERED: MOM Conc 10 ML UD.LIQ PO PRN (16:25)
[2020-08-15] MEDS ORDERED: Melatonin 3 MG TABLET PO PRN (16:25)
[2020-08-15] MEDS ORDERED: Ondansetron ODT 4 MG TAB.RAPDIS SL PRN (16:25)
[2020-08-15] MEDS ORDERED: Perflutren Lipid Microsphere 1.3 ML in 0.9 % Sodium Chloride 8.7 ML IVP PRN (16:28)
[2020-08-15] MEDS ORDERED: *HR* HYDROmorphone (PF) 1 MG/ML SYRINGE IVP ONE (16:45)
[2020-08-15] MEDS ORDERED: *HR* Dextrose 50 % in Water (Vial) 50 ML VIAL IVP PRN (16:52)
[2020-08-15] MEDS ORDERED: D5% in Water 1,000 ML IVC PRN (16:52)
[2020-08-15] MEDS ORDERED: Dextrose Gel 15 GM/37.5 ML TUBE PO PRN ×2 (16:52)
[2020-08-15] MEDS: Insulin LISPRO 300 UNITS/3 ML VIAL SUBQ SCH ×2 (18:38→20:29)
[2020-08-15] MEDS: levETIRAcetam 250 MG TABLET PO SCH (18:38)
[2020-08-15] MEDS: *HR* OxyCODONE Immed Rel 5 MG TABLET PO PRN (18:38)
[2020-08-15] MEDS ORDERED: Ketorolac 30 MG/ML VIAL IVP ONE (19:30)
[2020-08-15] MEDS: Gabapentin 400 MG CAPSULE PO SCH (20:15)
[2020-08-15] MEDS ORDERED: Morphine Sulfate 2 MG/ML SYRINGE IVP ONE (22:53)
[2020-08-16 02:25] LABS: Hematocrit 37.6 % (37.5-50.1); Mean Corpuscular HGB Conc 33.8 g/dL (31.6-35.5); Mean Corpuscular Hemoglobin 31.3 pg (28.0-33.3); Mean Corpuscular Volume 92.6 fL (83.0-100.0); Mean Platelet Volume 8.7 fL (9.4-12.4); Platelet Count 351 K/mcL (140-400); Red Blood Count 4.06 M/mcL (4.19-5.50); Red Cell Distribution Width 15.4 % (11.5-14.5); White Blood Count 9.5 K/mcL (4.3-11.1)
[2020-08-16 02:26] LABS: Hemoglobin 12.7 g/dL (12.9-16.9)
[2020-08-16 02:45] LABS: Alanine Aminotransferase 34 Units/L (7-52); Albumin 3.6 g/dL (3.5-5.7); Albumin/Globulin Ratio 1.5 (1.1-2.2); Alkaline Phosphatase 234 Units/L (34-104); Aspartate Amino Transferase 32 Units/L (13-39); BUN/Creatinine Ratio 28 (6-26); Bilirubin,Total 0.4 mg/dL (0.3-1.0); Blood Urea Nitrogen 26 mg/dL (8-23); Calcium 8.7 mg/dL (8.6-10.3); Carbon Dioxide 23 mEq/L (23-29); Chloride 102 mEq/L (98-107); Chol/HDL Ratio 4.3 (0-4.9); Cholesterol 178 mg/dL (< 200); Globulin 2.4 g/dL (2.4-3.5); Glucose 242 mg/dL (70-105); HDL Cholesterol 41 mg/dL (40-59); LDL Cholesterol,Calculated 113 mg/dL (< 100); Osmolality,Calculated 289 (280-300); Potassium 3.4 mEq/L (3.5-5.1); Sodium 133 mEq/L (136-145); Triglycerides 121 mg/dL (< 150); eGFR For African Americans > 60 (> 60); eGFR For Non-African Americans > 60 (> 60)
[2020-08-16] MEDS: levETIRAcetam 250 MG TABLET PO SCH ×2 (05:26→16:41)
[2020-08-16] MEDS: *HR* Enoxaparin 40 MG/0.4 ML SYRINGE SQ SCH (05:26)
[2020-08-16] MEDS: Insulin LISPRO 300 UNITS/3 ML VIAL SUBQ SCH ×4 (06:10→19:26)
[2020-08-16] MEDS ORDERED: Aspirin 81 MG TAB.CHEW PO SCH (09:00)
[2020-08-16] MEDS ORDERED: cefTRIAXone 1,000 MG in 0.9 % Sodium Chloride Mini Bag 100 ML IVPB SCH (09:00)
[2020-08-16] MEDS: Aspirin 81 MG TAB.CHEW PO SCH (12:08)
[2020-08-16] MEDS: *HR* OxyCODONE Immed Rel 5 MG TABLET PO PRN ×2 (12:09→19:23)
[2020-08-16] MEDS: Gabapentin 400 MG CAPSULE PO SCH ×3 (12:09→19:24)
[2020-08-16] MEDS: Cefdinir 300 MG CAPSULE PO SCH (19:23)
[2020-08-17] MEDS: *HR* OxyCODONE Immed Rel 5 MG TABLET PO PRN ×2 (01:47→10:27)
[2020-08-17] MEDS: levETIRAcetam 250 MG TABLET PO SCH (04:35)
[2020-08-17] MEDS: *HR* Enoxaparin 40 MG/0.4 ML SYRINGE SQ SCH (04:35)
[2020-08-17] MEDS ORDERED: Isosorbide MONOnitrate (24 HR) 30 MG TAB.ER.24H PO SCH (09:00)
[2020-08-17] MEDS: Insulin LISPRO 300 UNITS/3 ML VIAL SUBQ SCH ×2 (10:25→15:26)
[2020-08-17] MEDS: Aspirin 81 MG TAB.CHEW PO SCH (10:26)
[2020-08-17 10:27] VITALS: BP 126/79
[2020-08-17] MEDS: Gabapentin 400 MG CAPSULE PO SCH ×2 (10:27→15:48)
[2020-08-17] MEDS: Cefdinir 300 MG CAPSULE PO SCH (10:27)
== END 2020-08-17 17:33 | disposition home health service (06) ==
LOC: EMEROOARM 13:58 → 3BNU 13:58 → SUATTDRO 16:35 → 3BNU 17:38
PROVIDERS: ADMIT Internal Medicine; ATTEND Registered Nurse

== ENCOUNTER 2020-08-19 14:21 | Observation (INO) ==
[2020-08-19] MEDS ORDERED: Aspirin 81 MG TAB.CHEW PO ONE (14:27)
[2020-08-19] MEDS ORDERED: *HR* OxyCODONE/APAP 5/325 TABLET PO ONE (15:05)
[2020-08-19] MEDS: Nitroglycerin 0.4 MG TAB.SUBL SL PRN (15:08)
[2020-08-19 15:20] LABS: Basophils # 0.1 K/mcL (0.0-0.2); Basophils % 0.8 %; Eosinophils # 0.1 K/mcL (0.0-0.6); Eosinophils % 1.2 %; Hematocrit 39.6 % (37.5-50.1); Hemoglobin 13.2 g/dL (12.9-16.9); Immature Granulocytes % 0.3 % (0-4); Lymphocytes # 2.8 K/mcL (0.6-4.6); Lymphocytes % 36.1 %; Mean Corpuscular HGB Conc 33.3 g/dL (31.6-35.5); Mean Corpuscular Hemoglobin 31.4 pg (28.0-33.3); Mean Corpuscular Volume 94.1 fL (83.0-100.0); Mean Platelet Volume 9.1 fL (9.4-12.4); Monocytes # 0.3 K/mcL (0.0-1.3); Monocytes % 3.4 %; Neutrophils # 4.5 K/mcL (1.6-8.9); Platelet Count 328 K/mcL (140-400); Red Blood Count 4.21 M/mcL (4.19-5.50); Red Cell Distribution Width 15.1 % (11.5-14.5); Segmented Neutrophils % 58.2 %; White Blood Count 7.7 K/mcL (4.3-11.1)
[2020-08-19 15:27] LABS: INR 0.9; Prothrombin Time 10.5 Seconds (9.4-12.1)
[2020-08-19 15:33] LABS: Bilirubin,Urine Negative (Negative); Blood,Urine Small (Negative); Clarity,Urine Clear (Clear); Color,Urine Light-Yellow (Yellow); Glucose,Urine (UA) 500 mg/dL (Normal); Ketones,Urine Negative (Negative); Leukocyte Esterase,Urine Small (Negative); Mucus,Urine Few per lpf (None-Few); Nitrite,Urine Negative (Negative); PH,Urine 6.5 pH Units (5.0-8.0); Protein,Urine 100 mg/dL (Neg-Trace); Specific Gravity,Urine 1.016 (1.010-1.025); Squamous Epithelial Cell,Urine Few per hpf (None-Few); Urobilinogen,Urine Normal (Normal)
[2020-08-19 15:38] LABS: Alanine Aminotransferase 16 Units/L (7-52); Albumin 4.2 g/dL (3.5-5.7); Albumin/Globulin Ratio 1.4 (1.1-2.2); Alkaline Phosphatase 166 Units/L (34-104); Aspartate Amino Transferase 11 Units/L (13-39); BUN/Creatinine Ratio 15 (6-26); Bilirubin,Direct 0.1 mg/dL (0.0-0.2); Bilirubin,Indirect 0.3 mg/dL (0.0-1.0); Bilirubin,Total 0.4 mg/dL (0.3-1.0); Blood Urea Nitrogen 9 mg/dL (8-23); Calcium 9.5 mg/dL (8.6-10.3); Carbon Dioxide 26 mEq/L (23-29); Chloride 100 mEq/L (98-107); Globulin 2.9 g/dL (2.4-3.5); Glucose 185 mg/dL (70-105); Osmolality,Calculated 281 (280-300); Potassium 4.5 mEq/L (3.5-5.1); Sodium 134 mEq/L (136-145); Total Protein 7.1 g/dL (6.4-8.9); Troponin I < 0.03 ng/mL (< 0.04); eGFR For African Americans > 60 (> 60); eGFR For Non-African Americans > 60 (> 60)
[2020-08-19] MEDS ORDERED: *HR* HYDROmorphone (PF) 1 MG/ML SYRINGE IVP ONE (15:40)
[2020-08-19] MEDS ORDERED: *HR* HYDROmorphone 2 MG/ML SYRINGE IVP ONE (17:29)
[2020-08-19] MEDS ORDERED: Ondansetron 4 MG/2 ML VIAL IVP PRN (18:04)
[2020-08-19] MEDS ORDERED: MOM Conc 10 ML UD.LIQ PO PRN (18:04)
[2020-08-19] MEDS ORDERED: Acetaminophen 325 MG TABLET PO PRN (18:04)
[2020-08-19] MEDS ORDERED: Mag Hydrox/Al Hydrox/Simeth 30 ML UDC PO PRN (18:04)
[2020-08-19] MEDS ORDERED: Melatonin 3 MG TABLET PO PRN (18:04)
[2020-08-19] MEDS ORDERED: Naloxone 0.4 MG/ML INJ IVP PRN (18:04)
[2020-08-19] MEDS: *HR* HYDROcodone/Acet 5/325 mg TABLET PO PRN (19:50)
[2020-08-19] MEDS: Gabapentin 400 MG CAPSULE PO SCH (19:50)
[2020-08-19] MEDS: levETIRAcetam 250 MG TABLET PO SCH (19:54)
[2020-08-19] MEDS: cefTRIAXone 1,000 MG in 0.9 % Sodium Chloride Mini Bag 100 ML IVPB SCH (19:55)
[2020-08-19] MEDS: ALPRAZolam 0.25 MG TABLET PO PRN (20:33)
[2020-08-19] MEDS ORDERED: Morphine Sulfate 2 MG/ML SYRINGE IVP ONE (21:36)
[2020-08-20] MEDS: *HR* HYDROcodone/Acet 5/325 mg TABLET PO PRN ×3 (01:50→14:17)
[2020-08-20 03:16] LABS: Basophils # 0.1 K/mcL (0.0-0.2); Eosinophils # 0.2 K/mcL (0.0-0.6); Eosinophils % 1.8 %; Hematocrit 33.5 % (37.5-50.1); Immature Granulocytes % 0.4 % (0-4); Lymphocytes # 3.2 K/mcL (0.6-4.6); Lymphocytes % 38.2 %; Mean Corpuscular HGB Conc 34.3 g/dL (31.6-35.5); Mean Corpuscular Hemoglobin 32.3 pg (28.0-33.3); Mean Corpuscular Volume 94.1 fL (83.0-100.0); Mean Platelet Volume 9.1 fL (9.4-12.4); Monocytes # 0.4 K/mcL (0.0-1.3); Monocytes % 4.9 %; Neutrophils # 4.5 K/mcL (1.6-8.9); Platelet Count 275 K/mcL (140-400); Red Blood Count 3.56 M/mcL (4.19-5.50); Segmented Neutrophils % 53.7 %; White Blood Count 8.4 K/mcL (4.3-11.1)
[2020-08-20 03:23] LABS: Estimated Average Glucose 335 mg/dl; Hemoglobin A1C 13.3 %
[2020-08-20 03:24] LABS: Hemoglobin 11.5 g/dL (12.9-16.9)
[2020-08-20 03:33] LABS: BUN/Creatinine Ratio 27 (6-26); Blood Urea Nitrogen 17 mg/dL (8-23); Calcium 8.5 mg/dL (8.6-10.3); Carbon Dioxide 22 mEq/L (23-29); Chloride 101 mEq/L (98-107); Glucose 271 mg/dL (70-105); Magnesium 1.6 mg/dL (1.6-2.6); Osmolality,Calculated 285 (280-300); Phosphorous 3.3 mg/dL (2.7-4.5); Potassium 4.4 mEq/L (3.5-5.1); Sodium 132 mEq/L (136-145); eGFR For African Americans > 60 (> 60); eGFR For Non-African Americans > 60 (> 60)
[2020-08-20] MEDS ORDERED: levETIRAcetam 250 MG TABLET PO SCH (06:00)
[2020-08-20] MEDS: levETIRAcetam 250 MG TABLET PO SCH (06:01)
[2020-08-20] MEDS: Gabapentin 400 MG CAPSULE PO SCH ×3 (08:03→20:50)
[2020-08-20] MEDS: Aspirin 81 MG TAB.CHEW PO SCH (08:04)
[2020-08-20] MEDS: Isosorbide MONOnitrate (24 HR) 30 MG TAB.ER.24H PO SCH (08:04)
[2020-08-20] MEDS ORDERED: Dextrose Gel 15 GM/37.5 ML TUBE PO PRN ×2 (08:49)
[2020-08-20] MEDS ORDERED: D5% in Water 1,000 ML IVC PRN (08:49)
[2020-08-20] MEDS ORDERED: *HR* Dextrose 50 % in Water (Vial) 50 ML VIAL IVP PRN (08:49)
[2020-08-20] MEDS: Insulin LISPRO 300 UNITS/3 ML VIAL SUBQ SCH ×3 (10:12→16:35)
[2020-08-20] MEDS: Insulin DETEMIR 100 UNIT/ML X5UNITS SUBQ SCH (10:14)
[2020-08-20] MEDS: Nitroglycerin 0.4 MG TAB.SUBL SL PRN (10:16)
[2020-08-20] MEDS: Divalproex (12 HR) 500 MG TABLET PO SCH ×2 (12:22→20:50)
[2020-08-20] MEDS: lisinopriL 20 MG TABLET PO SCH (12:27)
[2020-08-20] MEDS: ALPRAZolam 0.25 MG TABLET PO PRN (13:06)
[2020-08-20] MEDS: cefTRIAXone 1,000 MG in 0.9 % Sodium Chloride Mini Bag 100 ML IVPB SCH (16:31)
[2020-08-20] MEDS: *HR* OxyCODONE Immed Rel 5 MG TABLET PO PRN ×2 (16:32→23:30)
[2020-08-20] MEDS: *HR* Heparin 5,000 UNIT/ML VIAL SQ SCH (16:32)
[2020-08-20] MEDS ORDERED: Insulin LISPRO 300 UNITS/3 ML VIAL SUBQ SCH (21:00)
[2020-08-21] MEDS: *HR* Heparin 5,000 UNIT/ML VIAL SQ SCH ×2 (05:14→17:07)
[2020-08-21] MEDS: *HR* OxyCODONE Immed Rel 5 MG TABLET PO PRN (07:43)
[2020-08-21] MEDS: Gabapentin 400 MG CAPSULE PO SCH ×2 (08:27→17:06)
[2020-08-21] MEDS: lisinopriL 20 MG TABLET PO SCH (08:27)
[2020-08-21] MEDS: Isosorbide MONOnitrate (24 HR) 30 MG TAB.ER.24H PO SCH (08:28)
[2020-08-21] MEDS: Aspirin 81 MG TAB.CHEW PO SCH (08:28)
[2020-08-21] MEDS: Insulin LISPRO 300 UNITS/3 ML VIAL SUBQ SCH ×3 (08:37→17:07)
[2020-08-21] MEDS ORDERED: Ertapenem 1,000 MG in 0.9 % Sodium Chloride Mini Bag 100 ML IVPB SCH (09:00)
[2020-08-21] MEDS: Insulin DETEMIR 100 UNIT/ML X5UNITS SUBQ SCH (09:48)
[2020-08-21] MEDS: Divalproex (12 HR) 500 MG TABLET PO SCH (09:58)
[2020-08-21] MEDS ORDERED: *HR* OxyCODONE Immed Rel 5 MG TABLET PO PRN (12:00)
[2020-08-21 13:55] VITALS: BP 102/58
== END 2020-08-21 19:07 | disposition left against medical advice (07) ==
LOC: EMEROOARM 14:21 → 3BNU 14:21 → SUATTDRO 17:51 → 3BNU 18:29
PROVIDERS: ADMIT Internal Medicine; ATTEND Internal Medicine

== ENCOUNTER 2020-08-28 13:01 | Inpatient (IN) ==
[2020-08-28] MEDS ORDERED: Isovue-370 500 ML BOTTLE IVP ONE (14:43)
[2020-08-28] MEDS ORDERED: Aspirin 325 MG TABLET PO ONE (14:44)
[2020-08-28] MEDS ORDERED: *HR* FentaNYL (PF) 100 MCG/2 ML VIAL IVP ONE (14:44)
[2020-08-28 15:01] LABS: Basophils # 0.1 K/mcL (0.0-0.2); Eosinophils # 0.1 K/mcL (0.0-0.6); Hemoglobin 13.1 g/dL (12.9-16.9); Immature Granulocytes % 0.3 % (0-4); Lymphocytes # 1.8 K/mcL (0.6-4.6); Lymphocytes % 26.1 %; Mean Corpuscular HGB Conc 34.5 g/dL (31.6-35.5); Mean Corpuscular Hemoglobin 32.2 pg (28.0-33.3); Mean Corpuscular Volume 93.4 fL (83.0-100.0); Mean Platelet Volume 9.4 fL (9.4-12.4); Monocytes # 0.3 K/mcL (0.0-1.3); Monocytes % 3.7 %; Neutrophils # 4.6 K/mcL (1.6-8.9); Platelet Count 229 K/mcL (140-400); Red Blood Count 4.07 M/mcL (4.19-5.50); Red Cell Distribution Width 14.7 % (11.5-14.5); Segmented Neutrophils % 67.9 %; White Blood Count 6.8 K/mcL (4.3-11.1)
[2020-08-28] MEDS: Nitroglycerin 0.4 MG TAB.SUBL SL SCH ×3 (15:25→17:31)
[2020-08-28 15:26] LABS: BUN/Creatinine Ratio 19 (6-26); Blood Urea Nitrogen 11 mg/dL (8-23); Calcium 9.4 mg/dL (8.6-10.3); Carbon Dioxide 23 mEq/L (23-29); Chloride 102 mEq/L (98-107); Glucose 320 mg/dL (70-105); Osmolality,Calculated 290 (280-300); Potassium 4.4 mEq/L (3.5-5.1); Sodium 134 mEq/L (136-145); Troponin I < 0.03 ng/mL (< 0.04); eGFR For African Americans > 60 (> 60); eGFR For Non-African Americans > 60 (> 60)
[2020-08-28] MEDS ORDERED: Naloxone 0.4 MG/ML INJ IVP PRN (16:54)
[2020-08-28] MEDS ORDERED: Acetaminophen 325 MG TABLET PO PRN (16:54)
[2020-08-28] MEDS: Morphine Sulfate 2 MG/ML SYRINGE IVP PRN ×2 (17:47→22:16)
[2020-08-28] MEDS ORDERED: Acetaminophen IV 1,000 MG/100 ML BAG IVPB ONE (18:55)
[2020-08-28] MEDS ORDERED: Ipratropium/Albuterol Neb 3 ML IH PRN (18:56)
[2020-08-28] MEDS ORDERED: *HR* Dextrose 50 % in Water (Vial) 50 ML VIAL IVP PRN (18:57)
[2020-08-28] MEDS ORDERED: D5% in Water 1,000 ML IVC PRN (18:57)
[2020-08-28] MEDS ORDERED: Dextrose Gel 15 GM/37.5 ML TUBE PO PRN ×2 (18:57)
[2020-08-28] MEDS: Insulin LISPRO 300 UNITS/3 ML VIAL SUBQ SCH ×2 (19:31→19:36)
[2020-08-28] MEDS ORDERED: Insulin DETEMIR 100 UNIT/ML X5UNITS SUBQ SCH (21:00)
[2020-08-28] MEDS: Gabapentin 400 MG CAPSULE PO SCH (21:02)
[2020-08-29] MEDS: Morphine Sulfate 2 MG/ML SYRINGE IVP PRN (02:25)
[2020-08-29 03:13] LABS: Basophils # 0.1 K/mcL (0.0-0.2); Basophils % 0.7 %; Eosinophils # 0.2 K/mcL (0.0-0.6); Eosinophils % 2.8 %; Hematocrit 36.8 % (37.5-50.1); Hemoglobin 12.3 g/dL (12.9-16.9); Immature Granulocytes % 0.1 % (0-4); Lymphocytes # 3.1 K/mcL (0.6-4.6); Lymphocytes % 44.9 %; Mean Corpuscular HGB Conc 33.4 g/dL (31.6-35.5); Mean Corpuscular Hemoglobin 32.2 pg (28.0-33.3); Mean Corpuscular Volume 96.3 fL (83.0-100.0); Mean Platelet Volume 9.4 fL (9.4-12.4); Monocytes # 0.3 K/mcL (0.0-1.3); Monocytes % 4.6 %; Neutrophils # 3.2 K/mcL (1.6-8.9); Platelet Count 260 K/mcL (140-400); Red Blood Count 3.82 M/mcL (4.19-5.50); Segmented Neutrophils % 46.9 %; White Blood Count 6.8 K/mcL (4.3-11.1)
[2020-08-29 03:34] LABS: BUN/Creatinine Ratio 26 (6-26); Blood Urea Nitrogen 17 mg/dL (8-23); Calcium 9.4 mg/dL (8.6-10.3); Carbon Dioxide 27 mEq/L (23-29); Chloride 104 mEq/L (98-107); Glucose 226 mg/dL (70-105); Magnesium 1.6 mg/dL (1.6-2.6); Osmolality,Calculated 295 (280-300); Potassium 3.8 mEq/L (3.5-5.1); Sodium 138 mEq/L (136-145); eGFR For African Americans > 60 (> 60); eGFR For Non-African Americans > 60 (> 60)
[2020-08-29 05:43] LABS: Estimated Average Glucose 303 mg/dl; Hemoglobin A1C 12.2 %
[2020-08-29] MEDS: carvediloL 6.25 MG TABLET PO SCH ×2 (08:48→18:11)
[2020-08-29] MEDS: *HR* OxyCODONE/APAP 7.5/325 TABLET PO PRN ×3 (08:48→21:17)
[2020-08-29] MEDS: Aspirin 81 MG TAB.CHEW PO SCH (08:48)
[2020-08-29] MEDS: Gabapentin 400 MG CAPSULE PO SCH ×3 (08:49→19:20)
[2020-08-29] MEDS: Insulin LISPRO 300 UNITS/3 ML VIAL SUBQ SCH ×4 (08:49→21:18)
[2020-08-29] MEDS: Isosorbide MONOnitrate (24 HR) 30 MG TAB.ER.24H PO SCH (08:49)
[2020-08-29] MEDS: Nicotine 14 MG PATCH.TD24 TD SCH (08:49)
[2020-08-29] MEDS ORDERED: *HR* Heparin 5,000 UNIT/ML VIAL IVP ONE ×2 (11:36→13:30)
[2020-08-29] MEDS ORDERED: *HR* Heparin 5,000 UNIT/ML VIAL IVP PRN ×4 (11:36→13:19)
[2020-08-29] MEDS ORDERED: Heparin 25,000UNIT/250ML 1/2NS 25,000 UNIT/250 ML IV.SOLN IVC SCH ×2 (11:45→13:30)
[2020-08-29 14:51] LABS: Hematocrit 35.5 % (37.5-50.1); Hemoglobin 12.1 g/dL (12.9-16.9); Mean Corpuscular HGB Conc 34.1 g/dL (31.6-35.5); Mean Corpuscular Hemoglobin 32.2 pg (28.0-33.3); Mean Corpuscular Volume 94.4 fL (83.0-100.0); Mean Platelet Volume 9.6 fL (9.4-12.4); Platelet Count 271 K/mcL (140-400); Red Blood Count 3.76 M/mcL (4.19-5.50); Red Cell Distribution Width 15.3 % (11.5-14.5); White Blood Count 7.3 K/mcL (4.3-11.1)
[2020-08-29 15:29] LABS: Heparin anti-factor XA UFH 0.08 IU/mL (0.30-0.70)
[2020-08-29] MEDS: Ondansetron 4 MG/2 ML VIAL IVP PRN (19:21)
[2020-08-29 19:45] LABS: Bilirubin,Urine Negative (Negative); Blood,Urine Negative (Negative); Budding Yeast,Urine Few per hpf (None Seen); Clarity,Urine Clear (Clear); Color,Urine Light-Yellow (Yellow); Glucose,Urine (UA) >=1000 mg/dL (Normal); Ketones,Urine Negative (Negative); Leukocyte Esterase,Urine Negative (Negative); Mucus,Urine Few per lpf (None-Few); Nitrite,Urine Negative (Negative); Protein,Urine 70 mg/dL (Neg-Trace); Specific Gravity,Urine 1.022 (1.010-1.025); Squamous Epithelial Cell,Urine Few per hpf (None-Few); Urobilinogen,Urine Normal (Normal); WBC,Urine 0-3 per hpf (0-3)
[2020-08-29] MEDS: Insulin DETEMIR 100 UNIT/ML X5UNITS SUBQ SCH (21:17)
[2020-08-30] MEDS: *HR* OxyCODONE/APAP 7.5/325 TABLET PO PRN ×2 (03:47→09:53)
[2020-08-30 03:53] LABS: Basophils # 0.1 K/mcL (0.0-0.2); Basophils % 0.7 %; Eosinophils # 0.2 K/mcL (0.0-0.6); Eosinophils % 1.9 %; Hematocrit 36.1 % (37.5-50.1); Hemoglobin 12.2 g/dL (12.9-16.9); Immature Granulocytes % 0.2 % (0-4); Lymphocytes % 44.6 %; Mean Corpuscular HGB Conc 33.8 g/dL (31.6-35.5); Mean Corpuscular Hemoglobin 32.1 pg (28.0-33.3); Mean Platelet Volume 9.5 fL (9.4-12.4); Monocytes # 0.4 K/mcL (0.0-1.3); Monocytes % 3.9 %; Neutrophils # 4.3 K/mcL (1.6-8.9); Platelet Count 263 K/mcL (140-400); Red Cell Distribution Width 15.4 % (11.5-14.5); Segmented Neutrophils % 48.7 %; White Blood Count 8.9 K/mcL (4.3-11.1)
[2020-08-30 04:05] LABS: BUN/Creatinine Ratio 36 (6-26); Blood Urea Nitrogen 31 mg/dL (8-23); Calcium 8.9 mg/dL (8.6-10.3); Carbon Dioxide 24 mEq/L (23-29); Chloride 102 mEq/L (98-107); Glucose 289 mg/dL (70-105); Magnesium 1.5 mg/dL (1.6-2.6); Osmolality,Calculated 297 (280-300); Potassium 4.4 mEq/L (3.5-5.1); Sodium 135 mEq/L (136-145); eGFR For African Americans > 60 (> 60); eGFR For Non-African Americans > 60 (> 60)
[2020-08-30] MEDS ORDERED: Regadenoson 0.4 MG/5 ML SYRINGE IVP ONE (06:25)
[2020-08-30] MEDS: Insulin LISPRO 300 UNITS/3 ML VIAL SUBQ SCH ×4 (07:29→20:27)
[2020-08-30] MEDS: carvediloL 6.25 MG TABLET PO SCH ×2 (09:53→16:49)
[2020-08-30] MEDS: Isosorbide MONOnitrate (24 HR) 30 MG TAB.ER.24H PO SCH (09:53)
[2020-08-30] MEDS: Gabapentin 400 MG CAPSULE PO SCH ×3 (09:53→20:27)
[2020-08-30] MEDS: Nicotine 14 MG PATCH.TD24 TD SCH (09:53)
[2020-08-30] MEDS: Aspirin 81 MG TAB.CHEW PO SCH (09:53)
[2020-08-30] MEDS: *HR* HYDROmorphone 2 MG TABLET PO PRN (14:09)
[2020-08-30] MEDS: *HR* Rivaroxaban 10 MG TABLET PO SCH (16:49)
[2020-08-30] MEDS: Insulin DETEMIR 100 UNIT/ML X5UNITS SUBQ SCH (20:28)
[2020-08-31] MEDS: *HR* HYDROmorphone 2 MG TABLET PO PRN ×4 (02:28→21:46)
[2020-08-31] MEDS: Isosorbide MONOnitrate (24 HR) 30 MG TAB.ER.24H PO SCH (07:43)
[2020-08-31] MEDS: Nicotine 14 MG PATCH.TD24 TD SCH (07:43)
[2020-08-31] MEDS: Gabapentin 400 MG CAPSULE PO SCH ×3 (07:43→21:47)
[2020-08-31] MEDS: carvediloL 6.25 MG TABLET PO SCH ×2 (07:44→15:23)
[2020-08-31] MEDS: Insulin LISPRO 300 UNITS/3 ML VIAL SUBQ SCH ×4 (07:44→22:01)
[2020-08-31] MEDS: Nitroglycerin 0.4 MG TAB.SUBL SL PRN ×2 (07:51→16:57)
[2020-08-31] MEDS: *HR* Rivaroxaban 10 MG TABLET PO SCH (15:23)
[2020-08-31] MEDS: Insulin DETEMIR 100 UNIT/ML X5UNITS SUBQ SCH (22:01)
[2020-09-01] MEDS: Ondansetron 4 MG/2 ML VIAL IVP PRN ×2 (02:46→20:29)
[2020-09-01] MEDS: *HR* HYDROmorphone 2 MG TABLET PO PRN ×5 (04:38→23:16)
[2020-09-01] MEDS: Insulin LISPRO 300 UNITS/3 ML VIAL SUBQ SCH ×4 (09:24→20:30)
[2020-09-01] MEDS: Gabapentin 400 MG CAPSULE PO SCH ×3 (09:32→23:41)
[2020-09-01] MEDS: carvediloL 6.25 MG TABLET PO SCH ×2 (09:32→17:15)
[2020-09-01] MEDS: Nicotine 14 MG PATCH.TD24 TD SCH (09:33)
[2020-09-01] MEDS: Isosorbide MONOnitrate (24 HR) 30 MG TAB.ER.24H PO SCH (09:33)
[2020-09-01] MEDS: *HR* Promethazine 25 MG/ML VIAL IM PRN (09:34)
[2020-09-01] MEDS: *HR* Rivaroxaban 10 MG TABLET PO SCH (17:15)
[2020-09-01] MEDS: Insulin DETEMIR 100 UNIT/ML X5UNITS SUBQ SCH (20:30)
[2020-09-02] MEDS: *HR* HYDROmorphone 2 MG TABLET PO PRN ×5 (03:26→22:19)
[2020-09-02] MEDS: Nicotine 14 MG PATCH.TD24 TD SCH (09:13)
[2020-09-02] MEDS: *HR* Promethazine 25 MG/ML VIAL IM PRN (09:14)
[2020-09-02] MEDS: Gabapentin 400 MG CAPSULE PO SCH ×3 (09:15→22:19)
[2020-09-02] MEDS: Isosorbide MONOnitrate (24 HR) 30 MG TAB.ER.24H PO SCH (09:15)
[2020-09-02] MEDS: carvediloL 6.25 MG TABLET PO SCH ×2 (09:16→15:59)
[2020-09-02] MEDS: Insulin LISPRO 300 UNITS/3 ML VIAL SUBQ SCH ×4 (09:17→22:19)
[2020-09-02] MEDS: Ondansetron 4 MG/2 ML VIAL IVP PRN (13:24)
[2020-09-02] MEDS: *HR* Rivaroxaban 10 MG TABLET PO SCH (15:59)
[2020-09-02] MEDS: Insulin DETEMIR 100 UNIT/ML X5UNITS SUBQ SCH (22:19)
[2020-09-03 04:02] LABS: Hematocrit 35.9 % (37.5-50.1); Hemoglobin 12.2 g/dL (12.9-16.9); Mean Corpuscular Hemoglobin 32.4 pg (28.0-33.3); Mean Corpuscular Volume 95.2 fL (83.0-100.0); Mean Platelet Volume 9.2 fL (9.4-12.4); Platelet Count 277 K/mcL (140-400); Red Blood Count 3.77 M/mcL (4.19-5.50); Red Cell Distribution Width 15.4 % (11.5-14.5)
[2020-09-03] MEDS: *HR* HYDROmorphone 2 MG TABLET PO PRN ×4 (04:06→20:35)
[2020-09-03 04:23] LABS: BUN/Creatinine Ratio 46 (6-26); Blood Urea Nitrogen 49 mg/dL (8-23); Calcium 9.2 mg/dL (8.6-10.3); Carbon Dioxide 26 mEq/L (23-29); Chloride 103 mEq/L (98-107); Glucose 160 mg/dL (70-105); Osmolality,Calculated 300 (280-300); Potassium 4.5 mEq/L (3.5-5.1); Sodium 137 mEq/L (136-145); eGFR For African Americans > 60 (> 60); eGFR For Non-African Americans > 60 (> 60)
[2020-09-03] MEDS: carvediloL 6.25 MG TABLET PO SCH ×2 (08:33→16:33)
[2020-09-03] MEDS: Gabapentin 400 MG CAPSULE PO SCH ×3 (08:34→20:35)
[2020-09-03] MEDS: Isosorbide MONOnitrate (24 HR) 30 MG TAB.ER.24H PO SCH ×2 (08:34→08:35)
[2020-09-03] MEDS: Nicotine 14 MG PATCH.TD24 TD SCH (08:35)
[2020-09-03] MEDS: Insulin LISPRO 300 UNITS/3 ML VIAL SUBQ SCH ×4 (08:44→20:35)
[2020-09-03] MEDS ORDERED: *HR* HYDROmorphone (PF) 1 MG/ML SYRINGE IVP ONE (14:21)
[2020-09-03] MEDS: *HR* Rivaroxaban 10 MG TABLET PO SCH (16:32)
[2020-09-03] MEDS: Divalproex (12 HR) 500 MG TABLET PO SCH (20:34)
[2020-09-03] MEDS: Insulin DETEMIR 100 UNIT/ML X5UNITS SUBQ SCH (20:34)
[2020-09-03] MEDS ORDERED: *HR* LORazepam 2 MG/ML VIAL IVP ONE (23:43)
[2020-09-04] MEDS: *HR* HYDROmorphone 2 MG TABLET PO PRN ×3 (01:08→13:11)
[2020-09-04] MEDS ORDERED: Ketorolac 30 MG/ML VIAL IVP ONE (02:38)
[2020-09-04] MEDS ORDERED: *HR* HYDROcodone/Acet 5/325 mg TABLET PO ONE (02:39)
[2020-09-04] MEDS: Nicotine 14 MG PATCH.TD24 TD SCH (08:28)
[2020-09-04] MEDS: 0.9 % Sodium Chloride 1,000 ML IVC SCH ×2 (08:28→22:14)
[2020-09-04] MEDS: Isosorbide MONOnitrate (24 HR) 30 MG TAB.ER.24H PO SCH (08:29)
[2020-09-04] MEDS: Gabapentin 400 MG CAPSULE PO SCH ×3 (08:30→21:55)
[2020-09-04] MEDS: Divalproex (12 HR) 500 MG TABLET PO SCH ×2 (08:30→19:43)
[2020-09-04] MEDS: carvediloL 6.25 MG TABLET PO SCH ×2 (08:30→16:57)
[2020-09-04] MEDS: Insulin LISPRO 300 UNITS/3 ML VIAL SUBQ SCH ×4 (08:31→19:44)
[2020-09-04] MEDS: *HR* Rivaroxaban 10 MG TABLET PO SCH (16:57)
[2020-09-04] MEDS: Insulin DETEMIR 100 UNIT/ML X5UNITS SUBQ SCH (19:43)
[2020-09-05] MEDS ORDERED: Ondansetron 4 MG/2 ML VIAL IVP PRN ×2 (07:06→09:08)
[2020-09-05] MEDS ORDERED: *HR* Propofol 200 MG/20 ML VIAL IVP ONE (07:10)
[2020-09-05] MEDS ORDERED: *HR* FentaNYL (PF) 100 MCG/2 ML VIAL ONE (07:10)
[2020-09-05] MEDS ORDERED: Ondansetron 4 MG/2 ML VIAL ONE (07:11)
[2020-09-05] MEDS ORDERED: Lidocaine -MPF 2% 2 ML VIAL ONE (07:11)
[2020-09-05] MEDS ORDERED: *HR* Succinylcholine 200 MG/10 ML VIAL IVP ONE (07:11)
[2020-09-05] MEDS ORDERED: Lidocaine HCL 4 ML Topical Solution (Laryng-O-Jet Kit Sterile Pak) TP ONE (07:18)
[2020-09-05] MEDS: Insulin LISPRO 300 UNITS/3 ML VIAL SUBQ SCH ×4 (08:03→21:12)
[2020-09-05] MEDS: *HR* HYDROmorphone PF 0.5 MG/0.5 ML SYRINGE IVP PRN ×2 (08:23→08:29)
[2020-09-05] MEDS ORDERED: Ringers Solution, Lactated 500 ML ONE (08:35)
[2020-09-05] MEDS ORDERED: D5% in Water 1,000 ML IVC PRN (09:08)
[2020-09-05] MEDS ORDERED: Nitroglycerin 0.4 MG TAB.SUBL SL PRN (09:08)
[2020-09-05] MEDS ORDERED: Ipratropium/Albuterol Neb 3 ML IH PRN (09:08)
[2020-09-05] MEDS ORDERED: Naloxone 0.4 MG/ML INJ IVP PRN (09:08)
[2020-09-05] MEDS ORDERED: Acetaminophen 325 MG TABLET PO PRN (09:08)
[2020-09-05] MEDS ORDERED: *HR* Dextrose 50 % in Water (Vial) 50 ML VIAL IVP PRN (09:08)
[2020-09-05] MEDS ORDERED: Dextrose Gel 15 GM/37.5 ML TUBE PO PRN ×2 (09:08)
[2020-09-05] MEDS ORDERED: *HR* Promethazine 25 MG/ML VIAL IM PRN (09:08)
[2020-09-05] MEDS: 0.9 % Sodium Chloride 1,000 ML IVC SCH ×2 (12:31→16:41)
[2020-09-05] MEDS: *HR* HYDROmorphone 2 MG TABLET PO PRN ×3 (12:33→20:33)
[2020-09-05] MEDS: Gabapentin 400 MG CAPSULE PO SCH ×3 (15:14→20:32)
[2020-09-05] MEDS: carvediloL 6.25 MG TABLET PO SCH ×2 (16:39→19:07)
[2020-09-05] MEDS ORDERED: *HR* Rivaroxaban 10 MG TABLET PO SCH (17:00)
[2020-09-05] MEDS: Isosorbide MONOnitrate (24 HR) 30 MG TAB.ER.24H PO SCH (19:07)
[2020-09-05] MEDS: Nicotine 14 MG PATCH.TD24 TD SCH (19:07)
[2020-09-05] MEDS: Divalproex (12 HR) 500 MG TABLET PO SCH ×2 (19:07→20:33)
[2020-09-05] MEDS: Insulin DETEMIR 100 UNIT/ML X5UNITS SUBQ SCH (21:13)
[2020-09-06] MEDS: *HR* HYDROmorphone 2 MG TABLET PO PRN ×2 (04:20→08:50)
[2020-09-06] MEDS: 0.9 % Sodium Chloride 1,000 ML IVC SCH ×2 (05:33→18:10)
[2020-09-06 05:58] LABS: Hematocrit 34.4 % (37.5-50.1); Hemoglobin 11.3 g/dL (12.9-16.9); Mean Corpuscular HGB Conc 32.8 g/dL (31.6-35.5); Mean Corpuscular Hemoglobin 31.9 pg (28.0-33.3); Mean Corpuscular Volume 97.2 fL (83.0-100.0); Mean Platelet Volume 8.9 fL (9.4-12.4); Platelet Count 256 K/mcL (140-400); Red Blood Count 3.54 M/mcL (4.19-5.50); White Blood Count 7.5 K/mcL (4.3-11.1)
[2020-09-06] MEDS: Insulin LISPRO 300 UNITS/3 ML VIAL SUBQ SCH ×4 (08:06→20:55)
[2020-09-06] MEDS: Nicotine 14 MG PATCH.TD24 TD SCH (08:44)
[2020-09-06] MEDS: Gabapentin 400 MG CAPSULE PO SCH ×3 (08:45→20:55)
[2020-09-06] MEDS: Isosorbide MONOnitrate (24 HR) 30 MG TAB.ER.24H PO SCH (08:45)
[2020-09-06] MEDS: carvediloL 6.25 MG TABLET PO SCH ×2 (08:45→18:48)
[2020-09-06] MEDS: Divalproex (12 HR) 500 MG TABLET PO SCH ×2 (08:45→20:55)
[2020-09-06] MEDS ORDERED: 0.9 % Sodium Chloride 250 ML IVC ONE (10:53)
[2020-09-06] MEDS ORDERED: Acetaminophen IV 1,000 MG/100 ML BAG IVPB ONE (15:29)
[2020-09-06] MEDS: Insulin DETEMIR 100 UNIT/ML X5UNITS SUBQ SCH (20:56)
[2020-09-07] MEDS: Insulin LISPRO 300 UNITS/3 ML VIAL SUBQ SCH ×3 (07:34→16:31)
[2020-09-07] MEDS: carvediloL 6.25 MG TABLET PO SCH ×2 (07:48→16:29)
[2020-09-07] MEDS: Gabapentin 400 MG CAPSULE PO SCH ×2 (07:48→16:29)
[2020-09-07] MEDS: *HR* HYDROmorphone 2 MG TABLET PO PRN ×2 (07:48→16:30)
[2020-09-07] MEDS: Nicotine 14 MG PATCH.TD24 TD SCH (07:48)
[2020-09-07] MEDS: Divalproex (12 HR) 500 MG TABLET PO SCH (07:48)
[2020-09-07] MEDS: Isosorbide MONOnitrate (24 HR) 30 MG TAB.ER.24H PO SCH (07:48)
[2020-09-07 11:10] LABS: Basophils % 0.5 %; Eosinophils # 0.2 K/mcL (0.0-0.6); Eosinophils % 2.4 %; Hematocrit 31.5 % (37.5-50.1); Hemoglobin 10.6 g/dL (12.9-16.9); Immature Granulocytes % 0.4 % (0-4); Lymphocytes # 2.6 K/mcL (0.6-4.6); Lymphocytes % 34.4 %; Mean Corpuscular HGB Conc 33.7 g/dL (31.6-35.5); Mean Corpuscular Hemoglobin 32.9 pg (28.0-33.3); Mean Corpuscular Volume 97.8 fL (83.0-100.0); Mean Platelet Volume 9.2 fL (9.4-12.4); Monocytes # 0.3 K/mcL (0.0-1.3); Monocytes % 4.3 %; Neutrophils # 4.4 K/mcL (1.6-8.9); Platelet Count 251 K/mcL (140-400); Red Blood Count 3.22 M/mcL (4.19-5.50); White Blood Count 7.7 K/mcL (4.3-11.1)
[2020-09-07 14:39] LABS: Hematocrit 31.1 % (37.5-50.1)
[2020-09-07 16:11] VITALS: BP 115/61; PULSE 80; TEMP 97.9; O2SAT 97
== END 2020-09-07 19:17 | disposition left against medical advice (07) | DRG 313 ==
LOC: EMEROOARM 13:01 → 3BNU 13:01 → SUATTDRO 16:10 → 3BNU 17:15 → SUATTDRO 09-02 15:24
PROVIDERS: ADMIT Pharmacist; ATTEND Nurse Practitioner

== ENCOUNTER 2020-09-13 11:55 | Observation (INO) ==
[2020-09-13] MEDS ORDERED: *HR* HYDROmorphone (PF) 1 MG/ML SYRINGE IVP ONE (12:28)
[2020-09-13] MEDS ORDERED: Nitroglycerin 0.4 MG TAB.SUBL SL PRN (12:30)
[2020-09-13 12:42] LABS: Basophils # 0.1 K/mcL (0.0-0.2); Basophils % 0.8 %; Eosinophils # 0.1 K/mcL (0.0-0.6); Eosinophils % 1.6 %; Hematocrit 38.6 % (37.5-50.1); Hemoglobin 12.6 g/dL (12.9-16.9); Immature Granulocytes % 0.3 % (0-4); Lymphocytes % 25.3 %; Mean Corpuscular HGB Conc 32.6 g/dL (31.6-35.5); Mean Corpuscular Hemoglobin 31.5 pg (28.0-33.3); Mean Corpuscular Volume 96.5 fL (83.0-100.0); Mean Platelet Volume 8.9 fL (9.4-12.4); Monocytes # 0.3 K/mcL (0.0-1.3); Monocytes % 3.3 %; Neutrophils # 5.5 K/mcL (1.6-8.9); Platelet Count 294 K/mcL (140-400); Red Cell Distribution Width 14.9 % (11.5-14.5); Segmented Neutrophils % 68.7 %
[2020-09-13 12:56] LABS: Prothrombin Time 11.4 Seconds (9.4-12.1)
[2020-09-13 12:59] LABS: BUN/Creatinine Ratio 20 (6-26); Blood Urea Nitrogen 13 mg/dL (8-23); Calcium 9.3 mg/dL (8.6-10.3); Carbon Dioxide 23 mEq/L (23-29); Chloride 107 mEq/L (98-107); Glucose 288 mg/dL (70-105); Osmolality,Calculated 297 (280-300); Potassium 4.2 mEq/L (3.5-5.1); Sodium 138 mEq/L (136-145); Troponin I < 0.03 ng/mL (< 0.04); eGFR For African Americans > 60 (> 60); eGFR For Non-African Americans > 60 (> 60)
[2020-09-13] MEDS ORDERED: Ondansetron 4 MG/2 ML VIAL IVP ONE (13:32)
[2020-09-13] MEDS ORDERED: *HR* FentaNYL (PF) 100 MCG/2 ML VIAL IVP ONE (13:32)
[2020-09-13 13:47] LABS: Bilirubin,Urine Negative (Negative); Blood,Urine Moderate (Negative); Clarity,Urine Clear (Clear); Color,Urine Yellow (Yellow); Glucose,Urine (UA) >=1000 mg/dL (Normal); Hyaline Casts,Urine Moderate per lpf (None Seen); Ketones,Urine Negative (Negative); Leukocyte Esterase,Urine Negative (Negative); Mucus,Urine Few per lpf (None-Few); Nitrite,Urine Negative (Negative); Protein,Urine >=300 mg/dL (Neg-Trace); RBC,Urine 50-100 per hpf (0-3); Specific Gravity,Urine > 1.030 (1.010-1.025); Squamous Epithelial Cell,Urine Few per hpf (None-Few); Urobilinogen,Urine Normal (Normal)
[2020-09-13] MEDS ORDERED: Melatonin 3 MG TABLET PO PRN (16:30)
[2020-09-13] MEDS ORDERED: Ondansetron ODT 4 MG TAB.RAPDIS SL PRN (16:30)
[2020-09-13] MEDS ORDERED: MOM Conc 10 ML UD.LIQ PO PRN (16:30)
[2020-09-13] MEDS ORDERED: Mag Hydrox/Al Hydrox/Simeth 30 ML UDC PO PRN (16:30)
[2020-09-13] MEDS ORDERED: Naloxone 0.4 MG/ML INJ IVP PRN (16:30)
[2020-09-13] MEDS ORDERED: D5% in Water 1,000 ML IVC PRN (16:44)
[2020-09-13] MEDS ORDERED: Dextrose Gel 15 GM/37.5 ML TUBE PO PRN ×2 (16:44)
[2020-09-13] MEDS ORDERED: *HR* Dextrose 50 % in Water (Vial) 50 ML VIAL IVP PRN (16:44)
[2020-09-13] MEDS: *HR* Rivaroxaban 10 MG TABLET PO SCH (18:11)
[2020-09-13] MEDS: carvediloL 6.25 MG TABLET PO SCH (18:11)
[2020-09-13] MEDS: *HR* HYDROmorphone 2 MG TABLET PO PRN (18:12)
[2020-09-13] MEDS: Divalproex (12 HR) 500 MG TABLET PO SCH (20:48)
[2020-09-13] MEDS: Gabapentin 300 MG CAPSULE PO SCH (20:48)
[2020-09-13] MEDS ORDERED: Gabapentin 400 MG CAPSULE PO SCH (21:00)
[2020-09-13] MEDS ORDERED: Insulin LISPRO 300 UNITS/3 ML VIAL SUBQ SCH (21:00)
[2020-09-13] MEDS ORDERED: Insulin DETEMIR 100 UNIT/ML X5UNITS SUBQ SCH (21:00)
[2020-09-14] MEDS: *HR* HYDROmorphone 2 MG TABLET PO PRN ×2 (02:20→09:35)
[2020-09-14 02:22] LABS: Hematocrit 37.4 % (37.5-50.1); Hemoglobin 11.8 g/dL (12.9-16.9); Mean Corpuscular HGB Conc 31.6 g/dL (31.6-35.5); Mean Corpuscular Hemoglobin 31.9 pg (28.0-33.3); Mean Corpuscular Volume 101.1 fL (83.0-100.0); Mean Platelet Volume 10.5 fL (9.4-12.4); Platelet Count 207 K/mcL (140-400); White Blood Count 6.5 K/mcL (4.3-11.1)
[2020-09-14 02:34] VITALS: TEMP 97.7
[2020-09-14 02:42] LABS: Alanine Aminotransferase 18 Units/L (7-52); Albumin 3.7 g/dL (3.5-5.7); Albumin/Globulin Ratio 1.5 (1.1-2.2); Alkaline Phosphatase 109 Units/L (34-104); Aspartate Amino Transferase 12 Units/L (13-39); BUN/Creatinine Ratio 23 (6-26); Bilirubin,Total 0.2 mg/dL (0.3-1.0); Blood Urea Nitrogen 15 mg/dL (8-23); Calcium 8.9 mg/dL (8.6-10.3); Carbon Dioxide 22 mEq/L (23-29); Chloride 107 mEq/L (98-107); Globulin 2.4 g/dL (2.4-3.5); Glucose 289 mg/dL (70-105); Osmolality,Calculated 295 (280-300); Potassium 3.8 mEq/L (3.5-5.1); Sodium 137 mEq/L (136-145); Total Protein 6.1 g/dL (6.4-8.9); Troponin I < 0.03 ng/mL (< 0.04); eGFR For African Americans > 60 (> 60); eGFR For Non-African Americans > 60 (> 60)
[2020-09-14 04:32] LABS: Alanine Aminotransferase 18 Units/L (7-52); Albumin 3.9 g/dL (3.5-5.7); Albumin/Globulin Ratio 1.5 (1.1-2.2); Alkaline Phosphatase 113 Units/L (34-104); Aspartate Amino Transferase 12 Units/L (13-39); BUN/Creatinine Ratio 23 (6-26); Bilirubin,Total 0.3 mg/dL (0.3-1.0); Blood Urea Nitrogen 15 mg/dL (8-23); Calcium 9.3 mg/dL (8.6-10.3); Carbon Dioxide 24 mEq/L (23-29); Chloride 107 mEq/L (98-107); Globulin 2.6 g/dL (2.4-3.5); Glucose 185 mg/dL (70-105); Osmolality,Calculated 292 (280-300); Potassium 3.9 mEq/L (3.5-5.1); Sodium 138 mEq/L (136-145); Total Protein 6.5 g/dL (6.4-8.9); eGFR For African Americans > 60 (> 60); eGFR For Non-African Americans > 60 (> 60)
[2020-09-14] MEDS ORDERED: *HR* Enoxaparin 40 MG/0.4 ML SYRINGE SQ SCH (06:00)
[2020-09-14 07:46] VITALS: BP 148/91; PULSE 69; O2SAT 98
[2020-09-14] MEDS ORDERED: Nicotine 14 MG PATCH.TD24 TD SCH (09:00)
[2020-09-14] MEDS ORDERED: Isosorbide MONOnitrate (24 HR) 30 MG TAB.ER.24H PO SCH (09:00)
[2020-09-14] MEDS ORDERED: Aspirin 81 MG TAB.CHEW PO SCH (09:00)
[2020-09-14] MEDS: Insulin LISPRO 300 UNITS/3 ML VIAL SUBQ SCH ×3 (09:33→16:25)
[2020-09-14] MEDS: carvediloL 6.25 MG TABLET PO SCH ×2 (09:34→15:04)
[2020-09-14] MEDS: Divalproex (12 HR) 500 MG TABLET PO SCH (09:34)
[2020-09-14] MEDS: Gabapentin 300 MG CAPSULE PO SCH ×2 (09:34→15:04)
[2020-09-14] MEDS: *HR* Rivaroxaban 10 MG TABLET PO SCH (15:04)
== END 2020-09-14 17:57 | disposition home or self-care (01) ==
LOC: EMEROOARM 11:55 → 3BNU 11:55 → SUATTDRO 14:15 → 3BNU 15:57
PROVIDERS: ADMIT Internal Medicine; ATTEND Registered Nurse

== ENCOUNTER 2020-11-07 12:04 | Inpatient (IN) ==
[2020-11-07] MEDS ORDERED: cefTRIAXone 1,000 MG in Water for inj. (sterile) 10 ML IVP ONE (13:56)
[2020-11-07] MEDS ORDERED: Piperacillin/Tazobactam 3.375 GM in 0.9 % Sodium Chloride Mini Bag 100 ML IVPB ONE (14:07)
[2020-11-07] MEDS ORDERED: *HR* HYDROmorphone (PF) 1 MG/ML SYRINGE IVP ONE (14:28)
[2020-11-07 15:08] LABS: INR 1.5
[2020-11-07 15:48] LABS: Alanine Aminotransferase 7 Units/L (7-52); Albumin 3.2 g/dL (3.5-5.7); Albumin/Globulin Ratio 0.8 (1.1-2.2); Alkaline Phosphatase 662 Units/L (34-104); Aspartate Amino Transferase 10 Units/L (13-39); BUN/Creatinine Ratio 18 (6-26); Bilirubin,Direct 0.2 mg/dL (0.0-0.2); Bilirubin,Indirect 0.4 mg/dL (0.0-1.0); Bilirubin,Total 0.6 mg/dL (0.3-1.0); Blood Urea Nitrogen 17 mg/dL (8-23); Calcium 8.9 mg/dL (8.6-10.3); Carbon Dioxide 13 mEq/L (23-29); Chloride 86 mEq/L (98-107); Globulin 4.1 g/dL (2.4-3.5); Glucose 477 mg/dL (70-105); Magnesium 1.5 mg/dL (1.6-2.6); Osmolality,Calculated 287 (280-300); Phosphorous 3.9 mg/dL (2.7-4.5); Potassium 4.2 mEq/L (3.5-5.1); Sodium 127 mEq/L (136-145); Total Protein 7.3 g/dL (6.4-8.9); Troponin I 0.06 ng/mL (< 0.04); eGFR For African Americans > 60 (> 60); eGFR For Non-African Americans > 60 (> 60)
[2020-11-07] MEDS: Ringers Solution, Lactated 1,000 ML IVC SCH ×2 (15:48→17:04)
[2020-11-07 15:53] LABS: Basophils # 0.1 K/mcL (0.0-0.2); Basophils % 0.6 %; Hematocrit 39.4 % (37.5-50.1); Hemoglobin 13.2 g/dL (12.9-16.9); Immature Granulocytes % 2.4 % (0-4); Lymphocytes # 1.2 K/mcL (0.6-4.6); Lymphocytes % 9.2 %; Mean Corpuscular HGB Conc 33.5 g/dL (31.6-35.5); Mean Corpuscular Hemoglobin 30.7 pg (28.0-33.3); Mean Corpuscular Volume 91.6 fL (83.0-100.0); Mean Platelet Volume 9.8 fL (9.4-12.4); Monocytes # 0.6 K/mcL (0.0-1.3); Monocytes % 4.7 %; Neutrophils # 10.7 K/mcL (1.6-8.9); Platelet Count 545 K/mcL (140-400); Red Cell Distribution Width 13.3 % (11.5-14.5); Segmented Neutrophils % 83.1 %; White Blood Count 12.9 K/mcL (4.3-11.1)
[2020-11-07] MEDS ORDERED: Magnesium Sulfate 1 GM/102 ML PIGGYBACK IVPB ONE (16:39)
[2020-11-07] MEDS ORDERED: *HR* HYDROmorphone 2 MG TABLET PO ONE (17:01)
[2020-11-07 17:06] LABS: Influenza A PCR Negative (Negative); Influenza B PCR Negative (Negative); Resp. Syncytial Virus PCR Negative (Negative)
[2020-11-07 17:10] LABS: SARS-CoV-2 by PCR (In House) Positive (Negative)
[2020-11-07 18:30] LABS: Amorphous Sediment,Urine Few per hpf (None-Few); Bacteria,Urine Few per hpf (None-Few); Bilirubin,Urine Negative (Negative); Blood,Urine Moderate (Negative); Clarity,Urine Turbid (Clear); Color,Urine Yellow (Yellow); Glucose,Urine (UA) >=1000 mg/dL (Normal); Ketones,Urine >150 mg/dL (Negative); Leukocyte Esterase,Urine Moderate (Negative); Mucus,Urine Few per lpf (None-Few); Nitrite,Urine Negative (Negative); Protein,Urine 30 mg/dL (Neg-Trace); Specific Gravity,Urine 1.016 (1.010-1.025); Squamous Epithelial Cell,Urine Few per hpf (None-Few); WBC,Urine 50-100 per hpf (0-3)
[2020-11-07] MEDS ORDERED: 0.9 % Sodium Chloride 1,000 ML IV ONE (19:24)
[2020-11-07 19:38] LABS: VBG HCO3 18 mEq/L (21-27); VBG PCO2 35 mmHg (41-51); VBG PH 7.33 pH Units (7.32-7.42); VBG PO2 45 mmHg (25-50)
[2020-11-07] MEDS ORDERED: *HR* Dextrose 50 % in Water (Vial) 50 ML VIAL IVP PRN (20:25)
[2020-11-07] MEDS ORDERED: 0.9 % Sodium Chloride 1,000 ML IVC SCH (20:30)
[2020-11-07] MEDS ORDERED: Aspirin 325 MG TABLET PO ONE (20:34)
[2020-11-07] MEDS ORDERED: Cefepime HCl 2,000 MG in Water for inj. (sterile) 20 ML IVP ONE (23:00)
[2020-11-07] MEDS ORDERED: Ringers Solution, Lactated 1,000 ML IVC ONE (23:02)
[2020-11-07] MEDS ORDERED: 0.9 % Sodium Chloride 1,000 ML ONE (23:02)
[2020-11-07] MEDS ORDERED: Morphine Sulfate 2 MG/ML SYRINGE IVP ONE (23:47)
[2020-11-08] MEDS ORDERED: *HR* Dextrose 50 % in Water (Vial) 50 ML VIAL IVP PRN ×2 (00:42→00:49)
[2020-11-08] MEDS ORDERED: D5% in 0.45% NACL w KCl 20 MEQ/1,000 ML MLS IVC PRN ×2 (00:42→00:49)
[2020-11-08] MEDS ORDERED: Insulin Regular, Human 100 UNIT/ML IV PRN ×2 (00:42→00:49)
[2020-11-08] MEDS ORDERED: Naloxone 0.4 MG/ML INJ IVP PRN (00:42)
[2020-11-08] MEDS ORDERED: D5% in 0.45% NACL 1,000 ML IVC PRN (00:42)
[2020-11-08] MEDS ORDERED: Ondansetron 4 MG/2 ML VIAL IVP PRN (00:42)
[2020-11-08] MEDS ORDERED: 0.45 % Sodium Chloride w/KCl 20 MEQ/1,000 ML MLS IVC SCH (01:00)
[2020-11-08] MEDS: D5% in 0.45% NACL 1,000 ML IVC PRN ×2 (01:09→12:54)
[2020-11-08 01:40] LABS: Basophils # 0.1 K/mcL (0.0-0.2); Basophils % 0.5 %; Eosinophils % 0.1 %; Hematocrit 33.1 % (37.5-50.1); Hemoglobin 11.7 g/dL (12.9-16.9); Immature Granulocytes % 2.7 % (0-4); Lymphocytes # 0.7 K/mcL (0.6-4.6); Mean Corpuscular HGB Conc 35.3 g/dL (31.6-35.5); Mean Corpuscular Hemoglobin 30.9 pg (28.0-33.3); Mean Corpuscular Volume 87.3 fL (83.0-100.0); Mean Platelet Volume 9.2 fL (9.4-12.4); Monocytes # 0.3 K/mcL (0.0-1.3); Monocytes % 2.8 %; Neutrophils # 8.9 K/mcL (1.6-8.9); Platelet Count 441 K/mcL (140-400); Red Blood Count 3.79 M/mcL (4.19-5.50); Red Cell Distribution Width 12.9 % (11.5-14.5); Segmented Neutrophils % 86.9 %; White Blood Count 10.3 K/mcL (4.3-11.1)
[2020-11-08 01:41] LABS: VBG HCO3 21 mEq/L (21-27); VBG PCO2 32 mmHg (41-51); VBG PH 7.43 pH Units (7.32-7.42); VBG PO2 71 mmHg (25-50)
[2020-11-08 01:56] LABS: BUN/Creatinine Ratio 15 (6-26); Blood Urea Nitrogen 10 mg/dL (8-23); Carbon Dioxide 20 mEq/L (23-29); Chloride 99 mEq/L (98-107); Glucose 129 mg/dL (70-105); Osmolality,Calculated 279 (280-300); Potassium 3.2 mEq/L (3.5-5.1); Sodium 134 mEq/L (136-145); eGFR For African Americans > 60 (> 60); eGFR For Non-African Americans > 60 (> 60)
[2020-11-08] MEDS: 0.9 % Sodium Chloride w KCl 20 MEQ/1,000 ML MLS IVC SCH ×5 (03:05→15:40)
[2020-11-08] MEDS ORDERED: *HR* Heparin 5,000 UNIT/ML VIAL SQ SCH (06:00)
[2020-11-08] MEDS: *HR* Enoxaparin 40 MG/0.4 ML SYRINGE SQ SCH (06:29)
[2020-11-08] MEDS ORDERED: Pantoprazole 40 MG VIAL IVP SCH (06:30)
[2020-11-08 07:12] LABS: Acinetobacter baumannii by PCR Not Detected (Not Detect); Enterococcus by PCR Not Detected (Not Detect); Staphylococcus aureus by PCR Not Detected (Not Detect); Staphylococcus by PCR Not Detected (Not Detect); Streptococcus agalactiae(B)PCR Not Detected (Not Detect); Streptococcus by PCR Not Detected (Not Detect); Streptococcus pneumoniae PCR Not Detected (Not Detect); Streptococcus pyogenes (A) PCR Not Detected (Not Detect)
[2020-11-08 07:13] LABS: Candida albicans by PCR Not Detected (Not Detect); Candida glabrata by PCR Not Detected (Not Detect); Candida krusei by PCR Not Detected (Not Detect); Candida parapsilosis by PCR Not Detected (Not Detect); Candida tropicalis by PCR Not Detected (Not Detect); Enterobacter cloacae Cmplx PCR Not Detected (Not Detect); Escherichia coli by PCR Not Detected (Not Detect); Klebsiella oxytoca by PCR Not Detected (Not Detect); Klebsiella pneumoniae by PCR DETECTED (Not Detect); Proteus by PCR Not Detected (Not Detect); Pseudomonas aeruginosa by PCR Not Detected (Not Detect); Serratia marcescens by PCR Not Detected (Not Detect)
[2020-11-08] MEDS ORDERED: Piperacillin/Tazobactam 3.375 GM in 0.9 % Sodium Chloride Mini Bag 100 ML IVPB SCH (08:00)
[2020-11-08] MEDS: Meropenem 1,000 MG in 0.9 % Sodium Chloride Mini Bag 100 ML IVPB SCH ×2 (08:01→16:46)
[2020-11-08] MEDS ORDERED: Nitroglycerin 0.4 MG TAB.SUBL SL PRN (13:46)
[2020-11-08 14:24] LABS: BUN/Creatinine Ratio 14 (6-26); Blood Urea Nitrogen 8 mg/dL (8-23); C-Reactive Protein 156 mg/L (Less than 10); Calcium 7.2 mg/dL (8.6-10.3); Carbon Dioxide 21 mEq/L (23-29); Chloride 105 mEq/L (98-107); Glucose 210 mg/dL (70-105); Lactate Dehydrogenase 125 Units/L (140-271); Magnesium 1.2 mg/dL (1.6-2.6); Osmolality,Calculated 285 (280-300); Phosphorous 1.7 mg/dL (2.7-4.5); Potassium 3.3 mEq/L (3.5-5.1); Sodium 135 mEq/L (136-145); Troponin I 0.03 ng/mL (< 0.04); eGFR For African Americans > 60 (> 60); eGFR For Non-African Americans > 60 (> 60)
[2020-11-08 14:33] LABS: Ferritin 516 ng/mL (20-250)
[2020-11-08] MEDS: *HR* OxyCODONE Immed Rel 5 MG TABLET PO PRN ×3 (16:47→23:53)
[2020-11-08] MEDS: Ertapenem 1,000 MG in 0.9 % Sodium Chloride Mini Bag 100 ML IVPB SCH (16:48)
[2020-11-08] MEDS: Insulin DETEMIR 100 UNIT/ML X5UNITS SUBQ SCH (17:35)
[2020-11-08] MEDS: Insulin LISPRO 300 UNITS/3 ML VIAL SUBQ SCH (17:35)
[2020-11-08 18:19] LABS: Estimated Average Glucose 315 mg/dl; Hemoglobin A1C 12.6 %
[2020-11-08] MEDS: Acetaminophen 325 MG TABLET PO PRN (19:33)
[2020-11-08] MEDS ORDERED: Cefepime HCl 1,000 MG in Water for inj. (sterile) 10 ML IVP ONE (20:46)
[2020-11-08] MEDS: Gabapentin 400 MG CAPSULE PO SCH (22:11)
[2020-11-09] MEDS: *HR* Enoxaparin 40 MG/0.4 ML SYRINGE SQ SCH (05:18)
[2020-11-09 06:30] LABS: Basophils # 0.1 K/mcL (0.0-0.2); Basophils % 0.8 %; Eosinophils % 0.2 %; Hematocrit 31.9 % (37.5-50.1); Immature Granulocytes % 3.9 % (0-4); Lymphocytes # 1.6 K/mcL (0.6-4.6); Lymphocytes % 19.1 %; Mean Corpuscular HGB Conc 34.5 g/dL (31.6-35.5); Mean Corpuscular Hemoglobin 30.9 pg (28.0-33.3); Mean Corpuscular Volume 89.6 fL (83.0-100.0); Mean Platelet Volume 9.2 fL (9.4-12.4); Monocytes # 0.6 K/mcL (0.0-1.3); Monocytes % 7.4 %; Neutrophils # 5.8 K/mcL (1.6-8.9); Platelet Count 417 K/mcL (140-400); Red Blood Count 3.56 M/mcL (4.19-5.50); Red Cell Distribution Width 13.2 % (11.5-14.5); Segmented Neutrophils % 68.6 %; White Blood Count 8.5 K/mcL (4.3-11.1)
[2020-11-09 07:07] LABS: Alanine Aminotransferase 7 Units/L (7-52); Albumin 2.3 g/dL (3.5-5.7); Albumin/Globulin Ratio 0.8 (1.1-2.2); Alkaline Phosphatase 489 Units/L (34-104); Aspartate Amino Transferase 17 Units/L (13-39); BUN/Creatinine Ratio 11 (6-26); Bilirubin,Total 0.5 mg/dL (0.3-1.0); Blood Urea Nitrogen 6 mg/dL (8-23); Calcium 7.9 mg/dL (8.6-10.3); Carbon Dioxide 24 mEq/L (23-29); Chloride 106 mEq/L (98-107); Globulin 2.9 g/dL (2.4-3.5); Glucose 72 mg/dL (70-105); Osmolality,Calculated 280 (280-300); Potassium 3.9 mEq/L (3.5-5.1); Sodium 137 mEq/L (136-145); Total Protein 5.2 g/dL (6.4-8.9); eGFR For African Americans > 60 (> 60); eGFR For Non-African Americans > 60 (> 60)
[2020-11-09] MEDS: Insulin LISPRO 300 UNITS/3 ML VIAL SUBQ SCH ×3 (08:06→16:33)
[2020-11-09] MEDS: Aspirin 81 MG TAB.CHEW PO SCH (08:12)
[2020-11-09] MEDS: Gabapentin 400 MG CAPSULE PO SCH ×3 (08:12→22:24)
[2020-11-09] MEDS: *HR* OxyCODONE Immed Rel 5 MG TABLET PO PRN ×3 (08:12→22:24)
[2020-11-09] MEDS: Insulin DETEMIR 100 UNIT/ML X5UNITS SUBQ SCH (08:12)
[2020-11-09] MEDS ORDERED: Magnesium Oxide 400 MG TABLET PO SCH (09:00)
[2020-11-09] MEDS: Ertapenem 1,000 MG in 0.9 % Sodium Chloride Mini Bag 100 ML IVPB SCH (16:43)
[2020-11-10] MEDS: *HR* OxyCODONE Immed Rel 5 MG TABLET PO PRN ×4 (03:45→20:59)
[2020-11-10 05:43] LABS: Basophils # 0.1 K/mcL (0.0-0.2); Basophils % 0.7 %; Eosinophils % 0.4 %; Hematocrit 30.6 % (37.5-50.1); Hemoglobin 10.5 g/dL (12.9-16.9); Immature Granulocytes % 4.7 % (0-4); Lymphocytes # 1.3 K/mcL (0.6-4.6); Lymphocytes % 19.3 %; Mean Corpuscular HGB Conc 34.3 g/dL (31.6-35.5); Mean Corpuscular Hemoglobin 30.6 pg (28.0-33.3); Mean Corpuscular Volume 89.2 fL (83.0-100.0); Mean Platelet Volume 9.5 fL (9.4-12.4); Monocytes # 0.5 K/mcL (0.0-1.3); Monocytes % 6.7 %; Neutrophils # 4.7 K/mcL (1.6-8.9); Platelet Count 397 K/mcL (140-400); Red Blood Count 3.43 M/mcL (4.19-5.50); Red Cell Distribution Width 13.6 % (11.5-14.5); Segmented Neutrophils % 68.2 %; White Blood Count 6.9 K/mcL (4.3-11.1)
[2020-11-10 06:00] LABS: BUN/Creatinine Ratio 11 (6-26); Blood Urea Nitrogen 7 mg/dL (8-23); Calcium 7.2 mg/dL (8.6-10.3); Carbon Dioxide 23 mEq/L (23-29); Chloride 104 mEq/L (98-107); Glucose 162 mg/dL (70-105); Osmolality,Calculated 282 (280-300); Potassium 3.4 mEq/L (3.5-5.1); Sodium 135 mEq/L (136-145); eGFR For African Americans > 60 (> 60); eGFR For Non-African Americans > 60 (> 60)
[2020-11-10] MEDS: *HR* Enoxaparin 40 MG/0.4 ML SYRINGE SQ SCH (06:59)
[2020-11-10] MEDS: Gabapentin 400 MG CAPSULE PO SCH ×3 (07:37→20:58)
[2020-11-10] MEDS: Aspirin 81 MG TAB.CHEW PO SCH (07:37)
[2020-11-10] MEDS: Magnesium Oxide 400 MG TABLET PO SCH ×2 (07:43→20:58)
[2020-11-10] MEDS: Insulin DETEMIR 100 UNIT/ML X5UNITS SUBQ SCH (08:01)
[2020-11-10] MEDS: Insulin LISPRO 300 UNITS/3 ML VIAL SUBQ SCH ×3 (08:11→16:41)
[2020-11-10] MEDS ORDERED: *HR* OxyCODONE Immed Rel 5 MG TABLET PO PRN (11:23)
[2020-11-10] MEDS: Ertapenem 1,000 MG in 0.9 % Sodium Chloride Mini Bag 100 ML IVPB SCH (16:42)
[2020-11-10] MEDS: Acetaminophen 325 MG TABLET PO PRN (20:59)
[2020-11-11] MEDS: *HR* OxyCODONE Immed Rel 5 MG TABLET PO PRN ×6 (00:32→18:09)
[2020-11-11] MEDS: *HR* Enoxaparin 40 MG/0.4 ML SYRINGE SQ SCH (06:56)
[2020-11-11 08:03] LABS: Basophils % 0.6 %; Eosinophils % 0.3 %; Immature Granulocytes % 3.8 % (0-4); Lymphocytes # 1.4 K/mcL (0.6-4.6); Lymphocytes % 22.8 %; Mean Corpuscular HGB Conc 34.4 g/dL (31.6-35.5); Mean Corpuscular Hemoglobin 31.9 pg (28.0-33.3); Mean Corpuscular Volume 92.8 fL (83.0-100.0); Mean Platelet Volume 9.3 fL (9.4-12.4); Monocytes # 0.4 K/mcL (0.0-1.3); Monocytes % 6.5 %; Neutrophils # 4.1 K/mcL (1.6-8.9); Platelet Count 332 K/mcL (140-400); Red Blood Count 3.45 M/mcL (4.19-5.50); Red Cell Distribution Width 13.8 % (11.5-14.5); White Blood Count 6.3 K/mcL (4.3-11.1)
[2020-11-11 08:23] LABS: Alanine Aminotransferase 5 Units/L (7-52); Albumin 2.4 g/dL (3.5-5.7); Albumin/Globulin Ratio 0.8 (1.1-2.2); Alkaline Phosphatase 327 Units/L (34-104); Aspartate Amino Transferase 8 Units/L (13-39); BUN/Creatinine Ratio 14 (6-26); Bilirubin,Total 0.3 mg/dL (0.3-1.0); Blood Urea Nitrogen 9 mg/dL (8-23); Calcium 7.6 mg/dL (8.6-10.3); Carbon Dioxide 27 mEq/L (23-29); Chloride 102 mEq/L (98-107); Glucose 228 mg/dL (70-105); Osmolality,Calculated 286 (280-300); Potassium 3.8 mEq/L (3.5-5.1); Sodium 135 mEq/L (136-145); Total Protein 5.4 g/dL (6.4-8.9); eGFR For African Americans > 60 (> 60); eGFR For Non-African Americans > 60 (> 60)
[2020-11-11] MEDS: Magnesium Oxide 400 MG TABLET PO SCH ×2 (09:02→19:59)
[2020-11-11] MEDS: Gabapentin 400 MG CAPSULE PO SCH ×3 (09:02→19:59)
[2020-11-11] MEDS: Aspirin 81 MG TAB.CHEW PO SCH (09:02)
[2020-11-11] MEDS: Insulin LISPRO 300 UNITS/3 ML VIAL SUBQ SCH ×3 (09:08→17:31)
[2020-11-11] MEDS: Insulin DETEMIR 100 UNIT/ML X5UNITS SUBQ SCH (09:17)
[2020-11-11 11:24] LABS: C-Reactive Protein 48 mg/L (Less than 10)
[2020-11-11] MEDS: Ertapenem 1,000 MG in 0.9 % Sodium Chloride Mini Bag 100 ML IVPB SCH (17:11)
[2020-11-11] MEDS: tiZANidine 4 MG TABLET PO SCH (17:30)
[2020-11-11] MEDS ORDERED: tiZANidine 4 MG TABLET PO SCH (21:00)
[2020-11-12] MEDS: *HR* OxyCODONE Immed Rel 5 MG TABLET PO PRN ×5 (00:19→21:44)
[2020-11-12 03:14] LABS: Basophils # 0.1 K/mcL (0.0-0.2); Basophils % 0.8 %; Eosinophils % 0.2 %; Hemoglobin 10.5 g/dL (12.9-16.9); Lymphocytes # 1.7 K/mcL (0.6-4.6); Lymphocytes % 19.3 %; Mean Corpuscular HGB Conc 33.9 g/dL (31.6-35.5); Mean Corpuscular Hemoglobin 31.4 pg (28.0-33.3); Mean Corpuscular Volume 92.8 fL (83.0-100.0); Monocytes # 0.6 K/mcL (0.0-1.3); Monocytes % 6.6 %; Neutrophils # 6.1 K/mcL (1.6-8.9); Platelet Count 333 K/mcL (140-400); Red Blood Count 3.34 M/mcL (4.19-5.50); Red Cell Distribution Width 13.5 % (11.5-14.5); Segmented Neutrophils % 70.1 %; White Blood Count 8.7 K/mcL (4.3-11.1)
[2020-11-12 03:38] LABS: BUN/Creatinine Ratio 25 (6-26); Blood Urea Nitrogen 14 mg/dL (8-23); Calcium 7.4 mg/dL (8.6-10.3); Carbon Dioxide 22 mEq/L (23-29); Chloride 102 mEq/L (98-107); Glucose 294 mg/dL (70-105); Magnesium 1.3 mg/dL (1.6-2.6); Osmolality,Calculated 291 (280-300); Potassium 3.6 mEq/L (3.5-5.1); Sodium 135 mEq/L (136-145); eGFR For African Americans > 60 (> 60); eGFR For Non-African Americans > 60 (> 60)
[2020-11-12] MEDS: *HR* Enoxaparin 40 MG/0.4 ML SYRINGE SQ SCH (06:24)
[2020-11-12] MEDS: Insulin LISPRO 300 UNITS/3 ML VIAL SUBQ SCH ×3 (09:21→16:48)
[2020-11-12] MEDS: Magnesium Oxide 400 MG TABLET PO SCH ×2 (09:30→21:44)
[2020-11-12] MEDS: Gabapentin 400 MG CAPSULE PO SCH ×3 (09:30→21:44)
[2020-11-12] MEDS: Loratadine 10 MG TABLET PO SCH (09:30)
[2020-11-12] MEDS: Aspirin 81 MG TAB.CHEW PO SCH (09:31)
[2020-11-12] MEDS: tiZANidine 4 MG TABLET PO SCH ×3 (09:42→21:44)
[2020-11-12] MEDS: Insulin DETEMIR 100 UNIT/ML X5UNITS SUBQ SCH (09:42)
[2020-11-12] MEDS: Ipratropium 1 PUFF INHALER IH SCH ×3 (10:43→21:54)
[2020-11-12] MEDS: Ertapenem 1,000 MG in 0.9 % Sodium Chloride Mini Bag 100 ML IVPB SCH (16:48)
[2020-11-13] MEDS: *HR* OxyCODONE Immed Rel 5 MG TABLET PO PRN ×4 (00:34→12:23)
[2020-11-13] MEDS: Ipratropium 1 PUFF INHALER IH SCH ×3 (03:57→15:22)
[2020-11-13] MEDS: *HR* Enoxaparin 40 MG/0.4 ML SYRINGE SQ SCH (05:32)
[2020-11-13 06:09] LABS: Basophils % 0.4 %; Eosinophils # 0.1 K/mcL (0.0-0.6); Eosinophils % 0.7 %; Hematocrit 30.4 % (37.5-50.1); Hemoglobin 10.3 g/dL (12.9-16.9); Immature Granulocytes % 1.8 % (0-4); Mean Corpuscular HGB Conc 33.9 g/dL (31.6-35.5); Mean Corpuscular Hemoglobin 31.6 pg (28.0-33.3); Mean Corpuscular Volume 93.3 fL (83.0-100.0); Monocytes # 0.6 K/mcL (0.0-1.3); Monocytes % 6.6 %; Neutrophils # 5.6 K/mcL (1.6-8.9); Platelet Count 340 K/mcL (140-400); Red Blood Count 3.26 M/mcL (4.19-5.50); Red Cell Distribution Width 13.5 % (11.5-14.5); Segmented Neutrophils % 66.5 %; White Blood Count 8.5 K/mcL (4.3-11.1)
[2020-11-13 07:03] LABS: BUN/Creatinine Ratio 18 (6-26); Blood Urea Nitrogen 14 mg/dL (8-23); Carbon Dioxide 30 mEq/L (23-29); Chloride 101 mEq/L (98-107); Glucose 252 mg/dL (70-105); Magnesium 1.6 mg/dL (1.6-2.6); Osmolality,Calculated 291 (280-300); Potassium 4.1 mEq/L (3.5-5.1); Sodium 136 mEq/L (136-145); eGFR For African Americans > 60 (> 60); eGFR For Non-African Americans > 60 (> 60)
[2020-11-13] MEDS: Insulin LISPRO 300 UNITS/3 ML VIAL SUBQ SCH ×2 (08:17→12:23)
[2020-11-13] MEDS: Aspirin 81 MG TAB.CHEW PO SCH (08:24)
[2020-11-13] MEDS: Gabapentin 400 MG CAPSULE PO SCH (08:24)
[2020-11-13] MEDS: Insulin DETEMIR 100 UNIT/ML X5UNITS SUBQ SCH (08:24)
[2020-11-13] MEDS: tiZANidine 4 MG TABLET PO SCH (08:25)
[2020-11-13] MEDS: Magnesium Oxide 400 MG TABLET PO SCH (08:25)
[2020-11-13] MEDS: Loratadine 10 MG TABLET PO SCH (08:25)
[2020-11-13] MEDS: Acetaminophen 325 MG TABLET PO PRN (11:11)
[2020-11-13 12:17] VITALS: BP 137/76; PULSE 82; TEMP 98.2; O2SAT 92
== END 2020-11-13 16:59 | disposition left against medical advice (07) | DRG 871 ==
LOC: EMEROOARM 12:04 → 2NENU 12:04 → SUATTDRO 21:06 → 2NENU 21:59 → SUATTDRO 11-09 13:43 → 3BNU 11-11 18:43
PROVIDERS: ADMIT Internal Medicine; ATTEND Internal Medicine

== ENCOUNTER 2021-02-25 21:25 | Inpatient (IN) ==
[2021-02-25] MEDS ORDERED: *HR* LORazepam 2 MG/ML VIAL IVP ONE (21:30)
[2021-02-25] MEDS ORDERED: cefTRIAXone 1,000 MG in Water for inj. (sterile) 10 ML IVP ONE (21:32)
[2021-02-25] MEDS ORDERED: 0.9 % Sodium Chloride 1,000 ML ONE (21:35)
[2021-02-25] MEDS: 0.9 % Sodium Chloride 1,000 ML IVC SCH ×2 (21:38→22:42)
[2021-02-25 22:00] LABS: Basophils % 0.2 %; Eosinophils % 0.1 %; Hematocrit 36.3 % (37.5-50.1); Hemoglobin 12.7 g/dL (12.9-16.9); Immature Granulocytes % 0.8 % (0-4); Lymphocytes # 1.3 K/mcL (0.6-4.6); Lymphocytes % 8.1 %; Mean Corpuscular Hemoglobin 29.7 pg (28.0-33.3); Mean Platelet Volume 9.7 fL (9.4-12.4); Monocytes # 0.6 K/mcL (0.0-1.3); Monocytes % 3.8 %; Platelet Count 341 K/mcL (140-400); Red Blood Count 4.27 M/mcL (4.19-5.50); White Blood Count 16.1 K/mcL (4.3-11.1)
[2021-02-25 22:01] LABS: VBG HCO3 15 mEq/L (21-27); VBG PCO2 20 mmHg (41-51); VBG PH 7.49 pH Units (7.32-7.42); VBG PO2 116 mmHg (25-50)
[2021-02-25 22:38] LABS: Alanine Aminotransferase 5 Units/L (7-52); Albumin/Globulin Ratio 0.9 (1.1-2.2); Alkaline Phosphatase 293 Units/L (34-104); Aspartate Amino Transferase 4 Units/L (13-39); BUN/Creatinine Ratio 15 (6-26); Bilirubin,Total 0.6 mg/dL (0.3-1.0); Blood Urea Nitrogen 16 mg/dL (8-23); Calcium 8.4 mg/dL (8.6-10.3); Carbon Dioxide 14 mEq/L (23-29); Chloride 82 mEq/L (98-107); Globulin 3.5 g/dL (2.4-3.5); Glucose 889 mg/dL (70-105); Magnesium 1.5 mg/dL (1.6-2.6); Osmolality,Calculated 291 (280-300); Potassium 2.8 mEq/L (3.5-5.1); Sodium 118 mEq/L (136-145); Total Protein 6.5 g/dL (6.4-8.9); Troponin I < 0.03 ng/mL (< 0.04); eGFR For African Americans > 60 (> 60); eGFR For Non-African Americans > 60 (> 60)
[2021-02-25 22:54] LABS: Influenza A PCR Negative (Negative); Influenza B PCR Negative (Negative); Resp. Syncytial Virus PCR Negative (Negative)
[2021-02-25 22:59] LABS: SARS-CoV-2 by PCR (In House) Negative (Negative)
[2021-02-25] MEDS ORDERED: *HR* Labetalol 20 MG/4 ML SYRINGE IVP ONE (23:12)
[2021-02-25 23:45] LABS: Bilirubin,Urine Negative (Negative); Blood,Urine Moderate (Negative); Budding Yeast,Urine Many per hpf (None Seen); Clarity,Urine Ex.Turbid (Clear); Color,Urine Yellow (Yellow); Glucose,Urine (UA) >=1000 mg/dL (Normal); Ketones,Urine 20 mg/dL (Negative); Leukocyte Esterase,Urine Large (Negative); Nitrite,Urine Negative (Negative); Protein,Urine 50 mg/dL (Neg-Trace); Specific Gravity,Urine 1.024 (1.010-1.025); Urobilinogen,Urine Normal (Normal); WBC,Urine TNTC per hpf (0-3)
[2021-02-25 23:47] LABS: Amphetamine Screen,Urine Negative ng/mL (Cutoff=1000); Barbiturate Screen,Urine Negative ng/mL (Cutoff=200); Benzodiazepines Screen,Urine Negative ng/mL (Cutoff=200); Cannabinoid Screen,Urine Negative ng/mL (Cutoff = 50); Cocaine Screen,Urine Negative ng/mL (Cutoff= 300); Opiate Screen,Urine Negative ng/mL (Cutoff=300); Phencyclidine Screen,Urine Negative ng/mL (Cutoff=25)
[2021-02-26] MEDS ORDERED: 0.9 % Sodium Chloride 1,000 ML IV ONE ×2 (00:09→23:19)
[2021-02-26 01:00] LABS: BUN/Creatinine Ratio 15 (6-26); Blood Urea Nitrogen 14 mg/dL (8-23); Calcium 7.9 mg/dL (8.6-10.3); Carbon Dioxide 20 mEq/L (23-29); Chloride 90 mEq/L (98-107); Glucose 626 mg/dL (70-105); Osmolality,Calculated 294 (280-300); Potassium 2.5 mEq/L (3.5-5.1); Sodium 127 mEq/L (136-145); eGFR For African Americans > 60 (> 60); eGFR For Non-African Americans > 60 (> 60)
[2021-02-26] MEDS ORDERED: Potassium Chloride Elixir 20 MEQ/15 ML UDC PO ONE ×2 (01:02→05:10)
[2021-02-26] MEDS ORDERED: Magnesium Sulfate 1 GM/102 ML PIGGYBACK IVPB ONE (02:22)
[2021-02-26 02:37] LABS: Calcium 7.9 mg/dL (8.6-10.3); Carbon Dioxide 25 mEq/L (23-29); Chloride 97 mEq/L (98-107); Glucose 348 mg/dL (70-105); Potassium 2.8 mEq/L (3.5-5.1); Sodium 131 mEq/L (136-145); eGFR For African Americans > 60 (> 60); eGFR For Non-African Americans > 60 (> 60)
[2021-02-26 02:39] LABS: BUN/Creatinine Ratio 14 (6-26); Blood Urea Nitrogen 13 mg/dL (8-23); Osmolality,Calculated 286 (280-300)
[2021-02-26] MEDS ORDERED: Ondansetron 4 MG/2 ML VIAL IVP PRN (03:19)
[2021-02-26] MEDS ORDERED: Naloxone 0.4 MG/ML INJ IVP PRN (03:19)
[2021-02-26] MEDS ORDERED: D5% in Water 1,000 ML IVC PRN (03:22)
[2021-02-26] MEDS ORDERED: Dextrose Gel 15 GM/37.5 ML TUBE PO PRN ×2 (03:22)
[2021-02-26] MEDS ORDERED: 0.9 % Sodium Chloride w KCl 20 MEQ/1,000 ML MLS IVC SCH (03:30)
[2021-02-26] MEDS ORDERED: Insulin DETEMIR 100 UNIT/ML X5UNITS SUBQ SCH ×2 (03:30→21:00)
[2021-02-26] MEDS: Insulin LISPRO 300 UNITS/3 ML VIAL SUBQ SCH ×4 (04:48→16:30)
[2021-02-26] MEDS: 0.9 % Sodium Chloride w KCl 20 MEQ/1,000 ML MLS IVC SCH ×2 (05:15→10:53)
[2021-02-26 05:51] LABS: Hematocrit 31.5 % (37.5-50.1); Hemoglobin 11.5 g/dL (12.9-16.9); Mean Corpuscular HGB Conc 36.5 g/dL (31.6-35.5); Mean Corpuscular Hemoglobin 30.8 pg (28.0-33.3); Mean Corpuscular Volume 84.5 fL (83.0-100.0); Mean Platelet Volume 9.3 fL (9.4-12.4); Platelet Count 253 K/mcL (140-400); Red Blood Count 3.73 M/mcL (4.19-5.50); Red Cell Distribution Width 13.4 % (11.5-14.5); White Blood Count 11.5 K/mcL (4.3-11.1)
[2021-02-26 06:13] LABS: BUN/Creatinine Ratio 15 (6-26); Blood Urea Nitrogen 12 mg/dL (8-23); Calcium 7.9 mg/dL (8.6-10.3); Carbon Dioxide 22 mEq/L (23-29); Chloride 98 mEq/L (98-107); Glucose 338 mg/dL (70-105); Osmolality,Calculated 283 (280-300); Potassium 3.2 mEq/L (3.5-5.1); Sodium 130 mEq/L (136-145); eGFR For African Americans > 60 (> 60); eGFR For Non-African Americans > 60 (> 60)
[2021-02-26] MEDS: *HR* Heparin 5,000 UNIT/ML VIAL SQ SCH ×3 (06:36→21:52)
[2021-02-26] MEDS: Ertapenem 1,000 MG in 0.9 % Sodium Chloride Mini Bag 100 ML IVPB SCH (06:37)
[2021-02-26] MEDS ORDERED: cefTRIAXone 1,000 MG in 0.9 % Sodium Chloride Mini Bag 100 ML IVPB SCH (09:00)
[2021-02-26 11:16] LABS: BUN/Creatinine Ratio 17 (6-26); Blood Urea Nitrogen 11 mg/dL (8-23); Calcium 8.1 mg/dL (8.6-10.3); Carbon Dioxide 24 mEq/L (23-29); Chloride 104 mEq/L (98-107); Glucose 67 mg/dL (70-105); Magnesium 1.6 mg/dL (1.6-2.6); Osmolality,Calculated 274 (280-300); Potassium 3.8 mEq/L (3.5-5.1); Sodium 133 mEq/L (136-145); eGFR For African Americans > 60 (> 60); eGFR For Non-African Americans > 60 (> 60)
[2021-02-26] MEDS: *HR* Dextrose 50 % in Water (Syg) 50 ML SYRINGE IVP PRN ×2 (12:18→16:45)
[2021-02-26] MEDS ORDERED: 0.9 % Sodium Chloride 1,000 ML IVC ONE (15:04)
[2021-02-26] MEDS ORDERED: Vancomycin (wt based) 1,000 MG VIAL IVPB SCH (16:00)
[2021-02-26] MEDS: D10% in Water 500 ML IVC SCH ×2 (16:30→21:42)
[2021-02-26] MEDS: 0.9 % Sodium Chloride 1,000 ML IVC SCH (19:02)
[2021-02-26 19:34] LABS: Mean Corpuscular HGB Conc 35.7 g/dL (31.6-35.5); Mean Corpuscular Hemoglobin 30.5 pg (28.0-33.3); Mean Corpuscular Volume 85.4 fL (83.0-100.0); Mean Platelet Volume 9.1 fL (9.4-12.4); Platelet Count 243 K/mcL (140-400); Red Blood Count 3.28 M/mcL (4.19-5.50); Red Cell Distribution Width 13.5 % (11.5-14.5); White Blood Count 11.5 K/mcL (4.3-11.1)
[2021-02-26 19:56] LABS: BUN/Creatinine Ratio 19 (6-26); Blood Urea Nitrogen 10 mg/dL (8-23); Calcium 7.5 mg/dL (8.6-10.3); Carbon Dioxide 24 mEq/L (23-29); Chloride 108 mEq/L (98-107); Glucose 141 mg/dL (70-105); Osmolality,Calculated 275 (280-300); Potassium 3.1 mEq/L (3.5-5.1); Sodium 132 mEq/L (136-145); eGFR For African Americans > 60 (> 60); eGFR For Non-African Americans > 60 (> 60)
[2021-02-27 02:12] LABS: Hematocrit 27.6 % (37.5-50.1); Hemoglobin 9.6 g/dL (12.9-16.9); Mean Corpuscular HGB Conc 34.8 g/dL (31.6-35.5); Mean Corpuscular Hemoglobin 30.3 pg (28.0-33.3); Mean Corpuscular Volume 87.1 fL (83.0-100.0); Mean Platelet Volume 9.4 fL (9.4-12.4); Platelet Count 226 K/mcL (140-400); Red Blood Count 3.17 M/mcL (4.19-5.50); Red Cell Distribution Width 13.6 % (11.5-14.5); White Blood Count 10.7 K/mcL (4.3-11.1)
[2021-02-27] MEDS: D10% in Water 500 ML IVC SCH ×2 (02:14→14:07)
[2021-02-27 02:28] LABS: Alanine Aminotransferase 5 Units/L (7-52); Albumin 2.2 g/dL (3.5-5.7); Alkaline Phosphatase 243 Units/L (34-104); Aspartate Amino Transferase 11 Units/L (13-39); BUN/Creatinine Ratio 16 (6-26); Bilirubin,Total 0.3 mg/dL (0.3-1.0); Blood Urea Nitrogen 9 mg/dL (8-23); Calcium 7.2 mg/dL (8.6-10.3); Carbon Dioxide 22 mEq/L (23-29); Chloride 109 mEq/L (98-107); Globulin 2.3 g/dL (2.4-3.5); Glucose 149 mg/dL (70-105); Magnesium 1.4 mg/dL (1.6-2.6); Osmolality,Calculated 279 (280-300); Potassium 3.4 mEq/L (3.5-5.1); Sodium 134 mEq/L (136-145); Total Protein 4.5 g/dL (6.4-8.9); eGFR For African Americans > 60 (> 60); eGFR For Non-African Americans > 60 (> 60)
[2021-02-27] MEDS: 0.9 % Sodium Chloride 1,000 ML IVC SCH (02:37)
[2021-02-27] MEDS ORDERED: Calcium Gluconate 1gm/50mL 1 GM/50 ML BAG IVPB ONE (03:21)
[2021-02-27] MEDS: *HR* Heparin 5,000 UNIT/ML VIAL SQ SCH ×3 (04:58→21:21)
[2021-02-27] MEDS: Ertapenem 1,000 MG in 0.9 % Sodium Chloride Mini Bag 100 ML IVPB SCH (04:58)
[2021-02-27 08:11] LABS: Phosphorous 1.5 mg/dL (2.7-4.5)
[2021-02-27] MEDS: Acetaminophen 325 MG TABLET PO PRN ×2 (09:14→21:16)
[2021-02-27] MEDS ORDERED: Potassium Phosphate 44 MEQ in 0.9 % Sodium Chloride 250 ML IVPB ONE (11:28)
[2021-02-27] MEDS: Insulin DETEMIR 100 UNIT/ML X5UNITS SUBQ SCH (21:00)
[2021-02-27 22:24] LABS: Acinetobacter baumannii by PCR Not Detected (Not Detect); Enterobacter cloacae Cmplx PCR Not Detected (Not Detect); Enterobacteriaceae by PCR Not Detected (Not Detect); Enterococcus by PCR Not Detected (Not Detect); Escherichia coli by PCR Not Detected (Not Detect); Klebsiella oxytoca by PCR Not Detected (Not Detect); Klebsiella pneumoniae by PCR Not Detected (Not Detect); Proteus by PCR Not Detected (Not Detect); Staphylococcus aureus by PCR Not Detected (Not Detect); Staphylococcus by PCR Not Detected (Not Detect); Streptococcus agalactiae(B)PCR Not Detected (Not Detect); Streptococcus by PCR Not Detected (Not Detect); Streptococcus pneumoniae PCR Not Detected (Not Detect); Streptococcus pyogenes (A) PCR Not Detected (Not Detect)
[2021-02-27 22:25] LABS: Candida albicans by PCR Not Detected (Not Detect); Candida glabrata by PCR DETECTED (Not Detect); Candida krusei by PCR Not Detected (Not Detect); Candida parapsilosis by PCR Not Detected (Not Detect); Candida tropicalis by PCR Not Detected (Not Detect); Pseudomonas aeruginosa by PCR Not Detected (Not Detect); Serratia marcescens by PCR Not Detected (Not Detect)
[2021-02-28 04:01] LABS: BUN/Creatinine Ratio 17 (6-26); Blood Urea Nitrogen 10 mg/dL (8-23); Calcium 7.3 mg/dL (8.6-10.3); Carbon Dioxide 20 mEq/L (23-29); Chloride 106 mEq/L (98-107); Glucose 180 mg/dL (70-105); Magnesium 1.6 mg/dL (1.6-2.6); Osmolality,Calculated 286 (280-300); Phosphorous 3.4 mg/dL (2.7-4.5); Potassium 4.3 mEq/L (3.5-5.1); Sodium 136 mEq/L (136-145); eGFR For African Americans > 60 (> 60); eGFR For Non-African Americans > 60 (> 60)
[2021-02-28] MEDS: Ertapenem 1,000 MG in 0.9 % Sodium Chloride Mini Bag 100 ML IVPB SCH (06:14)
[2021-02-28] MEDS: *HR* Heparin 5,000 UNIT/ML VIAL SQ SCH ×3 (06:15→21:12)
[2021-02-28] MEDS: Micafungin 100 MG in 0.9 % Sodium Chloride Mini Bag 100 ML IVPB SCH (10:03)
[2021-02-28] MEDS ORDERED: *HR* HYDROcodone/Acet 5/325 mg TABLET PO ONE (10:05)
[2021-02-28] MEDS ORDERED: Ketorolac 30 MG/ML VIAL IVP PRN (15:16)
[2021-02-28] MEDS: *HR* LORazepam 2 MG/ML VIAL IVP PRN (19:48)
[2021-02-28] MEDS: Insulin DETEMIR 100 UNIT/ML X5UNITS SUBQ SCH (22:13)
[2021-02-28] MEDS: Ketorolac 30 MG/ML VIAL IVP PRN (22:14)
[2021-03-01] MEDS: *HR* Heparin 5,000 UNIT/ML VIAL SQ SCH ×2 (05:44→15:01)
[2021-03-01] MEDS: Ertapenem 1,000 MG in 0.9 % Sodium Chloride Mini Bag 100 ML IVPB SCH (05:44)
[2021-03-01] MEDS: Ketorolac 30 MG/ML VIAL IVP PRN ×3 (07:28→20:53)
[2021-03-01] MEDS: Divalproex (12 HR) 500 MG TABLET PO SCH ×2 (08:54→20:53)
[2021-03-01] MEDS: Micafungin 100 MG in 0.9 % Sodium Chloride Mini Bag 100 ML IVPB SCH (08:55)
[2021-03-01 10:29] LABS: Basophils % 0.6 %; Eosinophils % 0.4 %; Hematocrit 31.7 % (37.5-50.1); Hemoglobin 10.7 g/dL (12.9-16.9); Immature Granulocytes % 1.7 % (0-4); Lymphocytes % 36.7 %; Mean Corpuscular HGB Conc 33.8 g/dL (31.6-35.5); Mean Corpuscular Hemoglobin 29.8 pg (28.0-33.3); Mean Corpuscular Volume 88.3 fL (83.0-100.0); Mean Platelet Volume 8.9 fL (9.4-12.4); Monocytes # 0.3 K/mcL (0.0-1.3); Monocytes % 6.1 %; Platelet Count 256 K/mcL (140-400); Red Blood Count 3.59 M/mcL (4.19-5.50); Segmented Neutrophils % 54.5 %; White Blood Count 5.5 K/mcL (4.3-11.1)
[2021-03-01 10:51] LABS: BUN/Creatinine Ratio 16 (6-26); Blood Urea Nitrogen 9 mg/dL (8-23); Calcium 7.9 mg/dL (8.6-10.3); Carbon Dioxide 27 mEq/L (23-29); Chloride 101 mEq/L (98-107); Glucose 112 mg/dL (70-105); Magnesium 1.7 mg/dL (1.6-2.6); Osmolality,Calculated 281 (280-300); Phosphorous 3.2 mg/dL (2.7-4.5); Sodium 136 mEq/L (136-145); eGFR For African Americans > 60 (> 60); eGFR For Non-African Americans > 60 (> 60)
[2021-03-01] MEDS ORDERED: *HR* FentaNYL (PF) 100 MCG/2 ML VIAL ONE (13:31)
[2021-03-01] MEDS ORDERED: 0.9 % Sodium Chloride 1,000 ML ONE (13:31)
[2021-03-01] MEDS ORDERED: *HR* LORazepam 2 MG/ML VIAL IVP ONE ×3 (17:17→17:43)
[2021-03-01] MEDS: Insulin DETEMIR 100 UNIT/ML X5UNITS SUBQ SCH (21:10)
[2021-03-01] MEDS ORDERED: levETIRAcetam 1,500 MG in 0.9 % Sodium Chloride 250 ML IVPB ONE (22:16)
[2021-03-01] MEDS ORDERED: levETIRAcetam 1,000 MG in 0.9 % Sodium Chloride 100 ML IVPB ONE (22:16)
[2021-03-01 22:20] LABS: ABG Base Excess 0 mEq/L (-2 to 3); ABG HCO3 24 mEq/L (21-27); ABG Oxygen Saturation 99 % (95-98); ABG PCO2 32 mmHg (35-45); ABG PH 7.47 pH Units (7.32-7.45); ABG PO2 138 mmHg (85-104); ABG TCO2 25 mEq/L (20-26)
[2021-03-01] MEDS ORDERED: *HR* LORazepam 2 MG/ML VIAL IVP PRN (22:20)
[2021-03-01 22:40] LABS: Basophils % 0.3 %; Eosinophils % 0.3 %; Hematocrit 32.3 % (37.5-50.1); Hemoglobin 10.9 g/dL (12.9-16.9); Immature Granulocytes % 1.1 % (0-4); Lymphocytes # 1.9 K/mcL (0.6-4.6); Mean Corpuscular HGB Conc 33.7 g/dL (31.6-35.5); Mean Corpuscular Hemoglobin 29.8 pg (28.0-33.3); Mean Corpuscular Volume 88.3 fL (83.0-100.0); Mean Platelet Volume 8.9 fL (9.4-12.4); Monocytes # 0.4 K/mcL (0.0-1.3); Monocytes % 5.5 %; Platelet Count 245 K/mcL (140-400); Red Blood Count 3.66 M/mcL (4.19-5.50); Segmented Neutrophils % 62.8 %; White Blood Count 6.3 K/mcL (4.3-11.1)
[2021-03-02] MEDS: *HR* Heparin 5,000 UNIT/ML VIAL SQ SCH ×5 (00:06→20:41)
[2021-03-02 00:19] LABS: Alanine Aminotransferase 7 Units/L (7-52); Albumin 2.5 g/dL (3.5-5.7); Albumin/Globulin Ratio 0.9 (1.1-2.2); Alkaline Phosphatase 196 Units/L (34-104); Aspartate Amino Transferase 10 Units/L (13-39); BUN/Creatinine Ratio 11 (6-26); Bilirubin,Total 0.2 mg/dL (0.3-1.0); Blood Urea Nitrogen 8 mg/dL (8-23); Calcium 7.9 mg/dL (8.6-10.3); Carbon Dioxide 24 mEq/L (23-29); Chloride 98 mEq/L (98-107); Creatine Kinase 40 Units/L (30-223); Globulin 2.9 g/dL (2.4-3.5); Glucose 305 mg/dL (70-105); Magnesium 1.5 mg/dL (1.6-2.6); Osmolality,Calculated 282 (280-300); Phosphorous 3.7 mg/dL (2.7-4.5); Potassium 3.8 mEq/L (3.5-5.1); Prolactin 17.71 ng/mL (3.00-14.70); Sodium 131 mEq/L (136-145); Total Protein 5.4 g/dL (6.4-8.9); eGFR For African Americans > 60 (> 60); eGFR For Non-African Americans > 60 (> 60)
[2021-03-02] MEDS ORDERED: 0.9 % Sodium Chloride 1,000 ML IV ONE (00:51)
[2021-03-02 02:10] LABS: Valproate 7 mcg/mL (50-100)
[2021-03-02 05:27] LABS: Hematocrit 33.8 % (37.5-50.1); Mean Corpuscular HGB Conc 32.5 g/dL (31.6-35.5); Mean Corpuscular Hemoglobin 29.6 pg (28.0-33.3); Mean Corpuscular Volume 90.9 fL (83.0-100.0); Mean Platelet Volume 8.8 fL (9.4-12.4); Platelet Count 273 K/mcL (140-400); Red Blood Count 3.72 M/mcL (4.19-5.50); Red Cell Distribution Width 14.2 % (11.5-14.5); White Blood Count 6.2 K/mcL (4.3-11.1)
[2021-03-02 05:48] LABS: BUN/Creatinine Ratio 9 (6-26); Blood Urea Nitrogen 6 mg/dL (8-23); Calcium 8.1 mg/dL (8.6-10.3); Carbon Dioxide 29 mEq/L (23-29); Chloride 104 mEq/L (98-107); Glucose 175 mg/dL (70-105); Magnesium 2.7 mg/dL (1.6-2.6); Osmolality,Calculated 280 (280-300); Potassium 3.9 mEq/L (3.5-5.1); Sodium 134 mEq/L (136-145); eGFR For African Americans > 60 (> 60); eGFR For Non-African Americans > 60 (> 60)
[2021-03-02] MEDS: Ertapenem 1,000 MG in 0.9 % Sodium Chloride Mini Bag 100 ML IVPB SCH (06:33)
[2021-03-02] MEDS: Micafungin 100 MG in 0.9 % Sodium Chloride Mini Bag 100 ML IVPB SCH (08:22)
[2021-03-02] MEDS: Divalproex (12 HR) 500 MG TABLET PO SCH ×2 (08:22→20:19)
[2021-03-02] MEDS: Insulin DETEMIR 100 UNIT/ML X5UNITS SUBQ SCH (20:19)
[2021-03-03] MEDS: Ertapenem 1,000 MG in 0.9 % Sodium Chloride Mini Bag 100 ML IVPB SCH (05:18)
[2021-03-03] MEDS: *HR* Heparin 5,000 UNIT/ML VIAL SQ SCH ×3 (05:21→20:19)
[2021-03-03] MEDS: Micafungin 100 MG in 0.9 % Sodium Chloride Mini Bag 100 ML IVPB SCH (07:43)
[2021-03-03] MEDS: Divalproex (12 HR) 500 MG TABLET PO SCH ×2 (07:43→20:19)
[2021-03-03] MEDS: Acetaminophen 325 MG TABLET PO PRN (20:19)
[2021-03-03] MEDS: levETIRAcetam 250 MG TABLET PO SCH (20:20)
[2021-03-03] MEDS: Insulin DETEMIR 100 UNIT/ML X5UNITS SUBQ SCH (20:20)
[2021-03-04] MEDS: Ertapenem 1,000 MG in 0.9 % Sodium Chloride Mini Bag 100 ML IVPB SCH (05:23)
[2021-03-04] MEDS: *HR* Heparin 5,000 UNIT/ML VIAL SQ SCH ×3 (05:23→19:34)
[2021-03-04] MEDS: levETIRAcetam 250 MG TABLET PO SCH ×2 (09:20→19:34)
[2021-03-04] MEDS: Divalproex (12 HR) 500 MG TABLET PO SCH ×2 (09:20→19:33)
[2021-03-04] MEDS: Micafungin 100 MG in 0.9 % Sodium Chloride Mini Bag 100 ML IVPB SCH (09:20)
[2021-03-04] MEDS ORDERED: Isovue-370 500 ML BOTTLE IVP ONE (11:28)
[2021-03-04 11:37] LABS: Hematocrit 33.3 % (37.5-50.1); Hemoglobin 11.3 g/dL (12.9-16.9); Mean Corpuscular HGB Conc 33.9 g/dL (31.6-35.5); Mean Corpuscular Hemoglobin 30.1 pg (28.0-33.3); Mean Corpuscular Volume 88.8 fL (83.0-100.0); Mean Platelet Volume 8.7 fL (9.4-12.4); Platelet Count 277 K/mcL (140-400); Red Blood Count 3.75 M/mcL (4.19-5.50); Red Cell Distribution Width 14.5 % (11.5-14.5); White Blood Count 6.3 K/mcL (4.3-11.1)
[2021-03-04 11:57] LABS: BUN/Creatinine Ratio 11 (6-26); Blood Urea Nitrogen 6 mg/dL (8-23); Calcium 8.6 mg/dL (8.6-10.3); Carbon Dioxide 25 mEq/L (23-29); Chloride 103 mEq/L (98-107); Glucose 107 mg/dL (70-105); Magnesium 1.8 mg/dL (1.6-2.6); Osmolality,Calculated 276 (280-300); Phosphorous 3.8 mg/dL (2.7-4.5); Potassium 4.5 mEq/L (3.5-5.1); Sodium 134 mEq/L (136-145); eGFR For African Americans > 60 (> 60); eGFR For Non-African Americans > 60 (> 60)
[2021-03-04] MEDS: Insulin DETEMIR 100 UNIT/ML X5UNITS SUBQ SCH (19:33)
[2021-03-04] MEDS: *HR* LORazepam 2 MG/ML VIAL IVP PRN (19:33)
[2021-03-05] MEDS: *HR* Heparin 5,000 UNIT/ML VIAL SQ SCH ×3 (05:06→20:01)
[2021-03-05] MEDS: Ertapenem 1,000 MG in 0.9 % Sodium Chloride Mini Bag 100 ML IVPB SCH (05:07)
[2021-03-05] MEDS ORDERED: MethylPREDNISolone 40 MG/ML VIAL IVP ONE ×3 (08:33→20:45)
[2021-03-05] MEDS: Divalproex (12 HR) 500 MG TABLET PO SCH ×2 (09:38→19:50)
[2021-03-05] MEDS: levETIRAcetam 250 MG TABLET PO SCH ×2 (09:38→19:50)
[2021-03-05] MEDS: Fluconazole 100 MG TABLET PO SCH (09:39)
[2021-03-05] MEDS ORDERED: MethylPREDNISolone 40 MG/ML VIAL ONE (09:48)
[2021-03-05 10:43] LABS: Basophils % 0.6 %; Eosinophils % 0.6 %; Hematocrit 37.2 % (37.5-50.1); Hemoglobin 12.1 g/dL (12.9-16.9); Immature Granulocytes % 0.6 % (0-4); Lymphocytes # 2.9 K/mcL (0.6-4.6); Lymphocytes % 56.7 %; Mean Corpuscular HGB Conc 32.5 g/dL (31.6-35.5); Mean Corpuscular Hemoglobin 29.3 pg (28.0-33.3); Mean Corpuscular Volume 90.1 fL (83.0-100.0); Mean Platelet Volume 8.4 fL (9.4-12.4); Monocytes # 0.5 K/mcL (0.0-1.3); Monocytes % 9.7 %; Neutrophils # 1.6 K/mcL (1.6-8.9); Platelet Count 276 K/mcL (140-400); Red Blood Count 4.13 M/mcL (4.19-5.50); Red Cell Distribution Width 14.6 % (11.5-14.5); Segmented Neutrophils % 31.8 %; White Blood Count 5.2 K/mcL (4.3-11.1)
[2021-03-05 11:01] LABS: BUN/Creatinine Ratio 14 (6-26); Blood Urea Nitrogen 9 mg/dL (8-23); Calcium 8.9 mg/dL (8.6-10.3); Carbon Dioxide 22 mEq/L (23-29); Chloride 102 mEq/L (98-107); Glucose 142 mg/dL (70-105); Osmolality,Calculated 279 (280-300); Potassium 4.6 mEq/L (3.5-5.1); Sodium 134 mEq/L (136-145); eGFR For African Americans > 60 (> 60); eGFR For Non-African Americans > 60 (> 60)
[2021-03-05 11:38] LABS: Valproate 15 mcg/mL (50-100)
[2021-03-05] MEDS: Insulin DETEMIR 100 UNIT/ML X5UNITS SUBQ SCH (20:02)
[2021-03-05] MEDS ORDERED: Insulin LISPRO 300 UNITS/3 ML VIAL SUBQ ONE (23:18)
[2021-03-05] MEDS: Acetaminophen 325 MG TABLET PO PRN (23:47)
[2021-03-06] MEDS ORDERED: Insulin DETEMIR 100 UNIT/ML X5UNITS SUBQ ONE (00:29)
[2021-03-06] MEDS ORDERED: Insulin LISPRO 300 UNITS/3 ML VIAL SUBQ ONE (01:20)
[2021-03-06 03:28] LABS: Hemoglobin 12.1 g/dL (12.9-16.9); Mean Corpuscular Volume 85.6 fL (83.0-100.0)
[2021-03-06 03:30] LABS: Basophils % 0.4 %; Hematocrit 35.1 % (37.5-50.1); Immature Granulocytes % 0.7 % (0-4); Immature Platelets 6.4 % (1.1-6.1); Lymphocytes % 35.8 %; Mean Corpuscular HGB Conc 34.5 g/dL (31.6-35.5); Mean Corpuscular Hemoglobin 29.5 pg (28.0-33.3); Monocytes # 0.1 K/mcL (0.0-1.3); Monocytes % 2.2 %; Neutrophils # 1.7 K/mcL (1.6-8.9); Platelet Count 246 K/mcL (140-400); Red Cell Distribution Width 14.7 % (11.5-14.5); Segmented Neutrophils % 60.9 %; White Blood Count 2.8 K/mcL (4.3-11.1)
[2021-03-06] MEDS: *HR* Heparin 5,000 UNIT/ML VIAL SQ SCH ×3 (05:04→20:43)
[2021-03-06] MEDS: Ertapenem 1,000 MG in 0.9 % Sodium Chloride Mini Bag 100 ML IVPB SCH (05:04)
[2021-03-06 06:50] LABS: Estimated Average Glucose 341 mg/dl; Hemoglobin A1C 13.5 %
[2021-03-06] MEDS: levETIRAcetam 250 MG TABLET PO SCH ×2 (09:02→20:43)
[2021-03-06] MEDS: Divalproex (12 HR) 500 MG TABLET PO SCH ×2 (09:02→20:43)
[2021-03-06] MEDS: Fluconazole 100 MG TABLET PO SCH (09:03)
[2021-03-06] MEDS ORDERED: *HR* HYDROmorphone PF 0.5 MG/0.5 ML SYRINGE IVP PRN (12:38)
[2021-03-06] MEDS ORDERED: *HR* Succinylcholine 200 MG/10 ML VIAL IVP ONE (12:49)
[2021-03-06] MEDS ORDERED: Lidocaine HCL 4 ML Topical Solution (Laryng-O-Jet Kit Sterile Pak) TP ONE (12:49)
[2021-03-06] MEDS ORDERED: *HR* Rocuronium Bromide 50 MG/5 ML VIAL ONE ×2 (12:49→13:59)
[2021-03-06] MEDS ORDERED: Lidocaine -MPF 2% 5 ML VIAL ONE (12:49)
[2021-03-06] MEDS ORDERED: *HR* Propofol 200 MG/20 ML VIAL IVP ONE (12:49)
[2021-03-06] MEDS ORDERED: *HR* FentaNYL (PF) 100 MCG/2 ML VIAL ONE (12:49)
[2021-03-06] MEDS ORDERED: Ondansetron 4 MG/2 ML VIAL ONE (12:49)
[2021-03-06] MEDS ORDERED: Sugammadex Sodium 200 MG/2 ML VIAL IV ONE (14:19)
[2021-03-06] MEDS ORDERED: Dextrose Gel 15 GM/37.5 ML TUBE PO PRN ×2 (16:03)
[2021-03-06] MEDS ORDERED: Naloxone 0.4 MG/ML INJ IVP PRN (16:03)
[2021-03-06] MEDS ORDERED: D5% in Water 1,000 ML IVC PRN (16:03)
[2021-03-06] MEDS ORDERED: Acetaminophen 325 MG TABLET PO PRN (16:03)
[2021-03-06] MEDS ORDERED: Ondansetron 4 MG/2 ML VIAL IVP PRN (16:03)
[2021-03-06] MEDS ORDERED: *HR* Dextrose 50 % in Water (Syg) 50 ML SYRINGE IVP PRN (16:03)
[2021-03-06 16:55] LABS: BUN/Creatinine Ratio 27 (6-26); Blood Urea Nitrogen 17 mg/dL (8-23); Calcium 9.1 mg/dL (8.6-10.3); Carbon Dioxide 23 mEq/L (23-29); Chloride 103 mEq/L (98-107); Glucose 180 mg/dL (70-105); Osmolality,Calculated 280 (280-300); Potassium 4.8 mEq/L (3.5-5.1); Sodium 132 mEq/L (136-145); eGFR For African Americans > 60 (> 60); eGFR For Non-African Americans > 60 (> 60)
[2021-03-06] MEDS: *HR* OxyCODONE Immed Rel 5 MG TABLET PO PRN ×2 (18:51→23:42)
[2021-03-06] MEDS: Insulin DETEMIR 100 UNIT/ML X5UNITS SUBQ SCH (20:43)
[2021-03-07 03:12] LABS: Alanine Aminotransferase 7 Units/L (7-52); Alkaline Phosphatase 149 Units/L (34-104); Aspartate Amino Transferase 9 Units/L (13-39); BUN/Creatinine Ratio 28 (6-26); Bilirubin,Total 0.3 mg/dL (0.3-1.0); Blood Urea Nitrogen 23 mg/dL (8-23); Carbon Dioxide 23 mEq/L (23-29); Chloride 100 mEq/L (98-107); Glucose 263 mg/dL (70-105); Osmolality,Calculated 287 (280-300); Potassium 5.2 mEq/L (3.5-5.1); Sodium 132 mEq/L (136-145); eGFR For African Americans > 60 (> 60); eGFR For Non-African Americans > 60 (> 60)
[2021-03-07] MEDS: Ertapenem 1,000 MG in 0.9 % Sodium Chloride Mini Bag 100 ML IVPB SCH (05:10)
[2021-03-07] MEDS: *HR* Heparin 5,000 UNIT/ML VIAL SQ SCH ×3 (05:11→20:15)
[2021-03-07] MEDS: *HR* OxyCODONE Immed Rel 5 MG TABLET PO PRN ×5 (05:16→20:17)
[2021-03-07 07:51] LABS: Hemoglobin 10.9 g/dL (12.9-16.9); Mean Corpuscular HGB Conc 32.1 g/dL (31.6-35.5); Mean Corpuscular Hemoglobin 29.1 pg (28.0-33.3); Mean Corpuscular Volume 90.9 fL (83.0-100.0); Platelet Count 347 K/mcL (140-400); Red Blood Count 3.74 M/mcL (4.19-5.50); Red Cell Distribution Width 15.3 % (11.5-14.5); White Blood Count 9.4 K/mcL (4.3-11.1)
[2021-03-07] MEDS: Fluconazole 100 MG TABLET PO SCH (08:44)
[2021-03-07] MEDS: levETIRAcetam 250 MG TABLET PO SCH ×2 (08:44→20:17)
[2021-03-07] MEDS: Divalproex (12 HR) 500 MG TABLET PO SCH ×2 (08:44→20:17)
[2021-03-07] MEDS: Insulin DETEMIR 100 UNIT/ML X5UNITS SUBQ SCH (20:17)
[2021-03-07] MEDS: *HR* LORazepam 2 MG/ML VIAL IVP PRN (23:04)
[2021-03-08] MEDS: *HR* Heparin 5,000 UNIT/ML VIAL SQ SCH ×3 (05:44→20:06)
[2021-03-08] MEDS: Ertapenem 1,000 MG in 0.9 % Sodium Chloride Mini Bag 100 ML IVPB SCH (05:44)
[2021-03-08] MEDS: *HR* OxyCODONE Immed Rel 5 MG TABLET PO PRN ×5 (06:32→22:48)
[2021-03-08] MEDS: Divalproex (12 HR) 500 MG TABLET PO SCH ×2 (08:42→20:04)
[2021-03-08] MEDS: levETIRAcetam 250 MG TABLET PO SCH ×2 (08:42→20:04)
[2021-03-08] MEDS: Fluconazole 100 MG TABLET PO SCH (08:42)
[2021-03-08 16:51] LABS: Hematocrit 32.1 % (37.5-50.1); Hemoglobin 10.2 g/dL (12.9-16.9); Mean Corpuscular HGB Conc 31.8 g/dL (31.6-35.5); Mean Corpuscular Hemoglobin 29.1 pg (28.0-33.3); Mean Corpuscular Volume 91.7 fL (83.0-100.0); Platelet Count 284 K/mcL (140-400); Red Cell Distribution Width 15.3 % (11.5-14.5); White Blood Count 7.8 K/mcL (4.3-11.1)
[2021-03-08 17:21] LABS: Alanine Aminotransferase 8 Units/L (7-52); Albumin 2.9 g/dL (3.5-5.7); Albumin/Globulin Ratio 1.1 (1.1-2.2); Alkaline Phosphatase 119 Units/L (34-104); Aspartate Amino Transferase 9 Units/L (13-39); BUN/Creatinine Ratio 26 (6-26); Bilirubin,Total 0.2 mg/dL (0.3-1.0); Blood Urea Nitrogen 19 mg/dL (8-23); Calcium 8.4 mg/dL (8.6-10.3); Carbon Dioxide 24 mEq/L (23-29); Chloride 103 mEq/L (98-107); Globulin 2.6 g/dL (2.4-3.5); Glucose 176 mg/dL (70-105); Osmolality,Calculated 287 (280-300); Potassium 4.5 mEq/L (3.5-5.1); Sodium 135 mEq/L (136-145); Total Protein 5.5 g/dL (6.4-8.9); eGFR For African Americans > 60 (> 60); eGFR For Non-African Americans > 60 (> 60)
[2021-03-08] MEDS: Insulin DETEMIR 100 UNIT/ML X5UNITS SUBQ SCH (20:04)
[2021-03-08] MEDS: *HR* LORazepam 2 MG/ML VIAL IVP PRN (20:10)
[2021-03-09 02:36] LABS: Hematocrit 33.2 % (37.5-50.1); Hemoglobin 10.9 g/dL (12.9-16.9); Mean Corpuscular HGB Conc 32.8 g/dL (31.6-35.5); Mean Corpuscular Hemoglobin 30.1 pg (28.0-33.3); Mean Corpuscular Volume 91.7 fL (83.0-100.0); Mean Platelet Volume 8.8 fL (9.4-12.4); Platelet Count 297 K/mcL (140-400); Red Blood Count 3.62 M/mcL (4.19-5.50); Red Cell Distribution Width 15.1 % (11.5-14.5); White Blood Count 9.4 K/mcL (4.3-11.1)
[2021-03-09 02:52] LABS: Alanine Aminotransferase 7 Units/L (7-52); Albumin/Globulin Ratio 1.1 (1.1-2.2); Alkaline Phosphatase 122 Units/L (34-104); Aspartate Amino Transferase 8 Units/L (13-39); BUN/Creatinine Ratio 24 (6-26); Bilirubin,Total 0.3 mg/dL (0.3-1.0); Blood Urea Nitrogen 20 mg/dL (8-23); Calcium 8.6 mg/dL (8.6-10.3); Carbon Dioxide 25 mEq/L (23-29); Chloride 103 mEq/L (98-107); Globulin 2.8 g/dL (2.4-3.5); Glucose 165 mg/dL (70-105); Osmolality,Calculated 282 (280-300); Potassium 4.4 mEq/L (3.5-5.1); Sodium 133 mEq/L (136-145); Total Protein 5.8 g/dL (6.4-8.9); eGFR For African Americans > 60 (> 60); eGFR For Non-African Americans > 60 (> 60)
[2021-03-09] MEDS: *HR* OxyCODONE Immed Rel 5 MG TABLET PO PRN ×3 (04:39→13:44)
[2021-03-09] MEDS: Ertapenem 1,000 MG in 0.9 % Sodium Chloride Mini Bag 100 ML IVPB SCH (05:07)
[2021-03-09] MEDS: *HR* Heparin 5,000 UNIT/ML VIAL SQ SCH (05:08)
[2021-03-09] MEDS: Divalproex (12 HR) 500 MG TABLET PO SCH (08:39)
[2021-03-09] MEDS: levETIRAcetam 250 MG TABLET PO SCH (08:39)
[2021-03-09] MEDS: Fluconazole 100 MG TABLET PO SCH (08:40)
[2021-03-09 10:49] VITALS: BP 118/76; PULSE 83; TEMP 97.6; O2SAT 99
== END 2021-03-09 14:40 | disposition home health service (06) | DRG 981 ==
LOC: EMEROOARM 21:25 → 2ANU 21:25 → SUATTDRO 02-26 03:20 → 2ANU 02-26 03:49 → SUATTDRO 02-27 07:58
PROVIDERS: ADMIT Internal Medicine; ATTEND Family Medicine
PROC: IRFLUID (2021-03-01 12:00)

== ENCOUNTER 2021-04-18 06:23 | Inpatient (IN) ==
[2021-04-18 07:13] LABS: Basophils # 0.1 K/mcL (0.0-0.2); Basophils % 0.4 %; Eosinophils # 0.1 K/mcL (0.0-0.6); Eosinophils % 0.5 %; Hematocrit 27.5 % (37.5-50.1); Hemoglobin 8.9 g/dL (12.9-16.9); Immature Granulocytes % 0.6 % (0-4); Lymphocytes # 2.2 K/mcL (0.6-4.6); Lymphocytes % 13.1 %; Mean Corpuscular HGB Conc 32.4 g/dL (31.6-35.5); Mean Corpuscular Hemoglobin 28.8 pg (28.0-33.3); Mean Platelet Volume 8.4 fL (9.4-12.4); Monocytes # 1.5 K/mcL (0.0-1.3); Platelet Count 336 K/mcL (140-400); Red Blood Count 3.09 M/mcL (4.19-5.50); Red Cell Distribution Width 16.4 % (11.5-14.5); Segmented Neutrophils % 76.4 %; White Blood Count 16.9 K/mcL (4.3-11.1)
[2021-04-18 07:21] LABS: INR 1.2; Prothrombin Time 13.9 Seconds (9.4-12.1)
[2021-04-18 07:23] LABS: Activated Partial Thrombo Time 38.5 Seconds (26.0-36.0)
[2021-04-18 07:42] LABS: Alanine Aminotransferase 4 Units/L (7-52); Albumin 3.1 g/dL (3.5-5.7); Albumin/Globulin Ratio 0.8 (1.1-2.2); Alkaline Phosphatase 177 Units/L (34-104); Aspartate Amino Transferase 6 Units/L (13-39); BUN/Creatinine Ratio 16 (6-26); Bilirubin,Indirect 0.2 mg/dL (0.0-1.0); Bilirubin,Total 0.2 mg/dL (0.3-1.0); Blood Urea Nitrogen 16 mg/dL (8-23); Carbon Dioxide 25 mEq/L (23-29); Chloride 96 mEq/L (98-107); Globulin 3.7 g/dL (2.4-3.5); Glucose 226 mg/dL (70-105); Magnesium 1.7 mg/dL (1.6-2.6); Osmolality,Calculated 284 (280-300); Phosphorous 4.4 mg/dL (2.7-4.5); Potassium 4.1 mEq/L (3.5-5.1); Sodium 133 mEq/L (136-145); Total Protein 6.8 g/dL (6.4-8.9); Troponin I 0.03 ng/mL (< 0.04); eGFR For African Americans > 60 (> 60); eGFR For Non-African Americans > 60 (> 60)
[2021-04-18] MEDS ORDERED: Isovue-370 500 ML BOTTLE IVP ONE (07:48)
[2021-04-18] MEDS ORDERED: Piperacillin/Tazobactam 3.375 GM in 0.9 % Sodium Chloride Mini Bag 100 ML IVPB ONE (07:56)
[2021-04-18] MEDS ORDERED: EPINEPHrine 1 MG/ML VIAL ONE (08:35)
[2021-04-18] MEDS: 0.9 % Sodium Chloride 1,000 ML IVC SCH ×2 (08:36→09:23)
[2021-04-18] MEDS ORDERED: EPINEPHrine 1 MG/ML VIAL IM ONE (08:37)
[2021-04-18] MEDS ORDERED: Ondansetron 4 MG/2 ML VIAL ONE (08:41)
[2021-04-18] MEDS ORDERED: Ondansetron 4 MG/2 ML VIAL IVP ONE ×2 (08:43→09:35)
[2021-04-18] MEDS ORDERED: *HR* FentaNYL (PF) 100 MCG/2 ML VIAL IVP STA (09:35)
[2021-04-18 09:39] LABS: Bacteria,Urine Moderate per hpf (None-Few); Bilirubin,Urine Negative (Negative); Blood,Urine Moderate (Negative); Clarity,Urine Ex.Turbid (Clear); Color,Urine Yellow (Yellow); Glucose,Urine (UA) Normal (Normal); Ketones,Urine Trace mg/dL (Negative); Leukocyte Esterase,Urine Large (Negative); Mucus,Urine Few per lpf (None-Few); Nitrite,Urine Positive (Negative); Protein,Urine >=300 mg/dL (Neg-Trace); RBC,Urine 50-100 per hpf (0-3); Specific Gravity,Urine 1.023 (1.010-1.025); Squamous Epithelial Cell,Urine Few per hpf (None-Few); Urobilinogen,Urine Normal (Normal); WBC,Urine TNTC per hpf (0-3)
[2021-04-18] MEDS ORDERED: Fluconazole 100 MG TABLET PO SCH (10:15)
[2021-04-18] MEDS ORDERED: Naloxone 0.4 MG/ML INJ IVP PRN (10:15)
[2021-04-18] MEDS ORDERED: Ondansetron 4 MG/2 ML VIAL IVP PRN (10:15)
[2021-04-18 10:40] LABS: Valproate 73 mcg/mL (50-100)
[2021-04-18] MEDS ORDERED: Dextrose Gel 15 GM/37.5 ML TUBE PO PRN ×2 (11:40)
[2021-04-18] MEDS ORDERED: *HR* Dextrose 50 % in Water (Syg) 50 ML SYRINGE IVP PRN (11:40)
[2021-04-18] MEDS ORDERED: D5% in Water 1,000 ML IVC PRN (11:40)
[2021-04-18] MEDS: Ertapenem 1,000 MG in 0.9 % Sodium Chloride Mini Bag 100 ML IVPB SCH (11:56)
[2021-04-18] MEDS: Micafungin 100 MG in 0.9 % Sodium Chloride Mini Bag 100 ML IVPB SCH (12:47)
[2021-04-18] MEDS: Insulin LISPRO 300 UNITS/3 ML VIAL SUBQ SCH ×2 (16:37→17:27)
[2021-04-18] MEDS: *HR* Heparin 5,000 UNIT/ML VIAL SQ SCH (17:30)
[2021-04-18] MEDS: Divalproex (12 HR) 500 MG TABLET PO SCH (19:43)
[2021-04-18] MEDS ORDERED: levETIRAcetam 250 MG TABLET PO SCH (21:00)
[2021-04-19] MEDS: Insulin LISPRO 300 UNITS/3 ML VIAL SUBQ SCH ×5 (01:42→19:36)
[2021-04-19 02:43] LABS: A.calcoaceticus-baumannii cplx Not Detected (Not Detect); Bacteroides fragilis by PCR Not Detected (Not Detect); Candida albicans by PCR Not Detected (Not Detect); Candida auris by PCR Not Detected (Not Detect); Candida glabrata by PCR Not Detected (Not Detect); Candida krusei by PCR Not Detected (Not Detect); Candida parapsilosis by PCR Not Detected (Not Detect); Candida tropicalis by PCR Not Detected (Not Detect); Crypto. neoformans/gattii PCR Not Detected (Not Detect); Enterobacter cloacae Cmplx PCR Not Detected (Not Detect); Enterobacterales by PCR Not Detected (Not Detect); Enterococcus faecalis by PCR Not Detected (Not Detect); Enterococcus faecium by PCR DETECTED (Not Detect); Escherichia coli by PCR Not Detected (Not Detect); Klebs. pneumoniae group by PCR Not Detected (Not Detect); Klebsiella aerogenes by PCR Not Detected (Not Detect); Klebsiella oxytoca by PCR Not Detected (Not Detect); Proteus by PCR Not Detected (Not Detect); Pseudomonas aeruginosa by PCR Not Detected (Not Detect); Salmonella species by PCR Not Detected (Not Detect); Serratia marcescens by PCR Not Detected (Not Detect); Staph epidermidis by PCR Not Detected (Not Detect); Staph lugdunensis by PCR Not Detected (Not Detect); Staphylococcus aureus by PCR Not Detected (Not Detect); Staphylococcus by PCR Not Detected (Not Detect); Stenotrophomonas maltophilia Not Detected (Not Detect); Streptococcus agalactiae(B)PCR Not Detected (Not Detect); Streptococcus by PCR Not Detected (Not Detect); Streptococcus pneumoniae PCR Not Detected (Not Detect); Streptococcus pyogenes (A) PCR Not Detected (Not Detect); vanA/B Vancomycin-Resist Genes DETECTED (Not Detect)
[2021-04-19 03:30] LABS: Basophils % 0.4 %; Eosinophils % 0.3 %; Hematocrit 23.9 % (37.5-50.1); Hemoglobin 7.4 g/dL (12.9-16.9); Immature Granulocytes % 0.5 % (0-4); Lymphocytes # 2.6 K/mcL (0.6-4.6); Mean Corpuscular Hemoglobin 28.5 pg (28.0-33.3); Mean Corpuscular Volume 91.9 fL (83.0-100.0); Mean Platelet Volume 8.5 fL (9.4-12.4); Monocytes # 0.6 K/mcL (0.0-1.3); Platelet Count 261 K/mcL (140-400); Red Cell Distribution Width 16.5 % (11.5-14.5); Segmented Neutrophils % 64.8 %; White Blood Count 9.2 K/mcL (4.3-11.1)
[2021-04-19 03:51] LABS: BUN/Creatinine Ratio 21 (6-26); Blood Urea Nitrogen 16 mg/dL (8-23); Calcium 8.5 mg/dL (8.6-10.3); Carbon Dioxide 25 mEq/L (23-29); Chloride 104 mEq/L (98-107); Glucose 122 mg/dL (70-105); Osmolality,Calculated 286 (280-300); Potassium 4.2 mEq/L (3.5-5.1); Sodium 137 mEq/L (136-145); eGFR For African Americans > 60 (> 60); eGFR For Non-African Americans > 60 (> 60)
[2021-04-19] MEDS: *HR* Heparin 5,000 UNIT/ML VIAL SQ SCH ×2 (05:22→16:29)
[2021-04-19] MEDS: Divalproex (12 HR) 500 MG TABLET PO SCH ×2 (07:27→19:36)
[2021-04-19] MEDS: Micafungin 100 MG in 0.9 % Sodium Chloride Mini Bag 100 ML IVPB SCH (07:27)
[2021-04-19] MEDS: Ertapenem 1,000 MG in 0.9 % Sodium Chloride Mini Bag 100 ML IVPB SCH (07:27)
[2021-04-19] MEDS ORDERED: Morphine Sulfate 2 MG/ML SYRINGE IVP PRN (09:53)
[2021-04-19] MEDS: DAPTOmycin 500 MG in 0.9 % Sodium Chloride 100 ML IVPB SCH (11:46)
[2021-04-19 11:50] LABS: Hemoglobin 7.6 g/dL (12.9-16.9)
[2021-04-19] MEDS: 0.9 % Sodium Chloride 1,000 ML IVC SCH ×7 (15:57→16:03)
[2021-04-20 02:25] LABS: Basophils % 0.7 %; Eosinophils # 0.1 K/mcL (0.0-0.6); Eosinophils % 0.8 %; Hematocrit 22.4 % (37.5-50.1); Immature Granulocytes % 0.2 % (0-4); Lymphocytes # 2.5 K/mcL (0.6-4.6); Lymphocytes % 41.2 %; Mean Corpuscular HGB Conc 31.3 g/dL (31.6-35.5); Mean Corpuscular Hemoglobin 28.3 pg (28.0-33.3); Mean Corpuscular Volume 90.7 fL (83.0-100.0); Mean Platelet Volume 8.3 fL (9.4-12.4); Monocytes # 0.3 K/mcL (0.0-1.3); Monocytes % 5.7 %; Neutrophils # 3.1 K/mcL (1.6-8.9); Platelet Count 296 K/mcL (140-400); Red Blood Count 2.47 M/mcL (4.19-5.50); Red Cell Distribution Width 16.4 % (11.5-14.5); Segmented Neutrophils % 51.4 %
[2021-04-20 02:41] LABS: BUN/Creatinine Ratio 23 (6-26); Blood Urea Nitrogen 19 mg/dL (8-23); Calcium 8.3 mg/dL (8.6-10.3); Carbon Dioxide 26 mEq/L (23-29); Chloride 102 mEq/L (98-107); Glucose 191 mg/dL (70-105); Osmolality,Calculated 287 (280-300); Potassium 4.4 mEq/L (3.5-5.1); Sodium 135 mEq/L (136-145); eGFR For African Americans > 60 (> 60); eGFR For Non-African Americans > 60 (> 60)
[2021-04-20] MEDS: *HR* Heparin 5,000 UNIT/ML VIAL SQ SCH ×2 (06:02→16:31)
[2021-04-20] MEDS: Micafungin 100 MG in 0.9 % Sodium Chloride Mini Bag 100 ML IVPB SCH (08:26)
[2021-04-20] MEDS: Divalproex (12 HR) 500 MG TABLET PO SCH ×2 (08:26→21:21)
[2021-04-20] MEDS: Ertapenem 1,000 MG in 0.9 % Sodium Chloride Mini Bag 100 ML IVPB SCH (08:27)
[2021-04-20] MEDS: Insulin LISPRO 300 UNITS/3 ML VIAL SUBQ SCH ×4 (08:29→21:29)
[2021-04-20] MEDS: DAPTOmycin 500 MG in 0.9 % Sodium Chloride 100 ML IVPB SCH (11:04)
[2021-04-20 11:09] LABS: Hematocrit 23.7 % (37.5-50.1); Hemoglobin 7.5 g/dL (12.9-16.9)
[2021-04-20] MEDS: Morphine Sulfate 2 MG/ML SYRINGE IVP PRN (13:14)
[2021-04-20] MEDS: *HR* LORazepam 0.5 MG TABLET PO PRN (16:32)
[2021-04-21] MEDS: *HR* Heparin 5,000 UNIT/ML VIAL SQ SCH ×2 (06:04→17:09)
[2021-04-21] MEDS: Morphine Sulfate 2 MG/ML SYRINGE IVP PRN ×3 (06:05→18:13)
[2021-04-21 07:13] LABS: Basophils # 0.1 K/mcL (0.0-0.2); Basophils % 0.8 %; Eosinophils # 0.2 K/mcL (0.0-0.6); Eosinophils % 2.7 %; Hematocrit 24.4 % (37.5-50.1); Hemoglobin 7.5 g/dL (12.9-16.9); Immature Granulocytes % 0.2 % (0-4); Lymphocytes # 2.5 K/mcL (0.6-4.6); Lymphocytes % 41.6 %; Mean Corpuscular HGB Conc 30.7 g/dL (31.6-35.5); Mean Corpuscular Hemoglobin 28.2 pg (28.0-33.3); Mean Corpuscular Volume 91.7 fL (83.0-100.0); Mean Platelet Volume 8.4 fL (9.4-12.4); Monocytes # 0.3 K/mcL (0.0-1.3); Monocytes % 5.5 %; Platelet Count 387 K/mcL (140-400); Red Blood Count 2.66 M/mcL (4.19-5.50); Red Cell Distribution Width 15.9 % (11.5-14.5); Segmented Neutrophils % 49.2 %
[2021-04-21 07:34] LABS: BUN/Creatinine Ratio 18 (6-26); Blood Urea Nitrogen 12 mg/dL (8-23); Calcium 8.7 mg/dL (8.6-10.3); Carbon Dioxide 26 mEq/L (23-29); Chloride 101 mEq/L (98-107); Glucose 145 mg/dL (70-105); Osmolality,Calculated 280 (280-300); Potassium 4.4 mEq/L (3.5-5.1); Sodium 134 mEq/L (136-145); eGFR For African Americans > 60 (> 60); eGFR For Non-African Americans > 60 (> 60)
[2021-04-21] MEDS: Divalproex (12 HR) 500 MG TABLET PO SCH ×2 (08:00→22:31)
[2021-04-21] MEDS: *HR* LORazepam 0.5 MG TABLET PO PRN (08:00)
[2021-04-21] MEDS: Insulin LISPRO 300 UNITS/3 ML VIAL SUBQ SCH ×4 (08:01→22:29)
[2021-04-21] MEDS: Ertapenem 1,000 MG in 0.9 % Sodium Chloride Mini Bag 100 ML IVPB SCH (08:01)
[2021-04-21] MEDS: Micafungin 100 MG in 0.9 % Sodium Chloride Mini Bag 100 ML IVPB SCH (09:44)
[2021-04-21] MEDS ORDERED: Sennosides/Docusate Sodium TABLET PO SCH (10:45)
[2021-04-21] MEDS: DAPTOmycin 500 MG in 0.9 % Sodium Chloride 100 ML IVPB SCH (10:45)
[2021-04-21] MEDS ORDERED: Ketorolac 30 MG/ML VIAL IVP ONE (11:34)
[2021-04-21] MEDS ORDERED: *HR* HYDROmorphone (PF) 1 MG/ML SYRINGE IVP ONE (13:14)
[2021-04-21] MEDS ORDERED: Bisacodyl 10 MG RECTAL SUPPOSITORY RC PRN (17:09)
[2021-04-21] MEDS ORDERED: Bisacodyl 10 MG RECTAL SUPPOSITORY RC ONE (17:10)
[2021-04-21 19:19] LABS: VBG HCO3 22 mEq/L (21-27); VBG PCO2 31 mmHg (41-51); VBG PH 7.46 pH Units (7.32-7.42); VBG PO2 42 mmHg (25-50)
[2021-04-21 19:41] LABS: Basophils # 0.1 K/mcL (0.0-0.2); Eosinophils # 0.1 K/mcL (0.0-0.6); Eosinophils % 2.3 %; Hematocrit 25.9 % (37.5-50.1); Hemoglobin 8.1 g/dL (12.9-16.9); Immature Granulocytes % 0.3 % (0-4); Lymphocytes # 2.8 K/mcL (0.6-4.6); Lymphocytes % 45.2 %; Mean Corpuscular HGB Conc 31.3 g/dL (31.6-35.5); Mean Corpuscular Hemoglobin 28.5 pg (28.0-33.3); Mean Corpuscular Volume 91.2 fL (83.0-100.0); Mean Platelet Volume 8.2 fL (9.4-12.4); Monocytes # 0.3 K/mcL (0.0-1.3); Monocytes % 4.9 %; Neutrophils # 2.8 K/mcL (1.6-8.9); Platelet Count 397 K/mcL (140-400); Red Blood Count 2.84 M/mcL (4.19-5.50); Red Cell Distribution Width 15.9 % (11.5-14.5); Segmented Neutrophils % 46.3 %; White Blood Count 6.1 K/mcL (4.3-11.1)
[2021-04-21 20:06] LABS: Alanine Aminotransferase 6 Units/L (7-52); Albumin 3.2 g/dL (3.5-5.7); Alkaline Phosphatase 146 Units/L (34-104); Aspartate Amino Transferase 9 Units/L (13-39); BUN/Creatinine Ratio 19 (6-26); Bilirubin,Total 0.2 mg/dL (0.3-1.0); Blood Urea Nitrogen 17 mg/dL (8-23); Calcium 9.1 mg/dL (8.6-10.3); Carbon Dioxide 25 mEq/L (23-29); Chloride 99 mEq/L (98-107); Globulin 3.3 g/dL (2.4-3.5); Glucose 114 mg/dL (70-105); Osmolality,Calculated 282 (280-300); Potassium 4.5 mEq/L (3.5-5.1); Sodium 135 mEq/L (136-145); Total Protein 6.5 g/dL (6.4-8.9); eGFR For African Americans > 60 (> 60); eGFR For Non-African Americans > 60 (> 60)
[2021-04-21 20:07] LABS: Troponin I < 0.03 ng/mL (< 0.04)
[2021-04-21 20:31] LABS: Prolactin 33.69 ng/mL (3.00-14.70)
[2021-04-21] MEDS ORDERED: *HR* LORazepam 1 MG TABLET PO PRN (20:33)
[2021-04-21 20:50] LABS: Magnesium 1.7 mg/dL (1.6-2.6)
[2021-04-21] MEDS ORDERED: Gadolinium Contrast Agent (WT Based) IV PRN ×2 (21:53→21:57)
[2021-04-21] MEDS ORDERED: Morphine Sulfate 2 MG/ML SYRINGE IVP ONE (23:23)
[2021-04-21] MEDS ORDERED: *HR* LORazepam 2 MG/ML VIAL IVP ONE (23:23)
[2021-04-22 03:36] VITALS: BP 126/75; PULSE 86; TEMP 97.6; O2SAT 96
== END 2021-04-22 04:30 | disposition short-term general hospital (02) | DRG 871 ==
LOC: EMEROOARM 06:23 → 3NENU 06:23 → SUATTDRO 10:15 → 2NENU 15:33 → 3ANU 04-21 15:49
PROVIDERS: ADMIT Family Medicine; ATTEND Student in an Organized Health Care Education/Training Program